=== PATIENT | female | born 1965 | race African-American/Black ===

== ENCOUNTER 2018-03-11 09:15 | Observation (INO) | payer MEDICAID ==
[2018-03-11] MEDS ORDERED: FENTANYL CITR 100 MCG/2 ML ONE ×2 (09:42→14:56)
[2018-03-11 09:56] LABS: Urine Blood NEGATIVE (NEG); Urine Glucose NEGATIVE (NEG); Urine Protein NEGATIVE (NEG); Urine Specific Gravity <1.005 (1.005-1.030)
[2018-03-11 10:54] LABS: Urine Bacteria <20 /HPF (<20); Urine Culture Reflex Order NOT NEEDED; Urine RBC <5 /HPF (NONE SEEN)
--- NOTE | 2018-03-11 11:18 | ER ---
Nurse's Notes [facility] Name: Stephanie Noel Age: 52 yrs Sex: Female : 1965 Arrival Date: 03/11/2018 Time: 09:18 Bed 19 Private MD: Zack Taylor Diagnosis: 2.7 cm deep abdominal wall abscess to LLQ Presentation: 03/11 09:31 Presenting complaint: Patient states: Pt reports "This spot on my left lower stomach jl7 has been coming and going for the past month." Ultrasound done, tech told pt to come to the ER. Transition of care: patient was not received from another setting of care. Onset of symptoms was February 08, 2018. Risk Assessment: Do you want to hurt yourself or someone else? Patient reports no desire to harm self or others. Initial Sepsis Screen: Does the patient meet any 2 criteria? No. Patient's initial sepsis screen is negative. Does the patient have a suspected source of infection? No. Patient's initial sepsis screen is negative. Care prior to arrival: None. 09:31 Method Of Arrival: Ambulatory 7 09:31 Acuity: MADONNA 3 jl7 Triage Assessment: 09:35 General: Appears in no apparent distress. uncomfortable, Behavior is calm, cooperative, jl7 appropriate for age. Pain: Complains of pain in left lower quadrant Pain does not radiate. Pain currently is 9 out of 10 on a pain scale. Quality of pain is described as burning, Pain began 1 month ago. EENT: No signs and/or symptoms were reported regarding the EENT system. Neuro: Level of Consciousness is awake, alert, obeys commands, Oriented to person, place, time, situation. Cardiovascular: Patient's skin is warm and dry. Respiratory: Airway is patent Respiratory effort is even, unlabored, Respiratory pattern is regular, symmetrical. GI: Abdomen is round non-distended, Bowel sounds present X 4 quads. : No signs and/or symptoms were reported regarding the genitourinary system. Derm: Skin is dry, Skin is normal, Skin temperature is warm Abscess located on left lower quadrant is quarter sized, has no drainage, is hot to touch. Musculoskeletal: No signs and/or symptoms reported regarding the musculoskeletal system. 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 LMP N/A - Post-menopause jl7 Historical: - Allergies: 09:35 Tetanus Vaccines and Toxoid; jl7 - Home Meds: 09:35 Antivert 25 mg Oral tab 1 tab every 6 hours [Active]; jl7 12:41 atenolol 50 mg Oral tab 1 tab 2 times per day [Active]; brinellix 10mg daily [Active]; jl7 Butalbital Compound 50-325-40 mg Oral tab 1 tab every 6 hours [Active]; Insulin: Lantus Sub-Q [Active]; Iron CR 325mg Oral daily [Active]; lisinopril 20 mg Oral tab 1 tab once daily [Active]; Lyrica 150mg Oral 1 cap 2 times per day [Active]; metformin 500 mg Oral Tb24 1 tab 2 times per day [Active]; Nexium 20 mg Oral cpDR 1 cap once daily [Active]; toradol 10mg every 6 hours [Active]; TriNessa (28) 0.18/0.215/0.25 mg-35 mcg (28) Oral tab 1 tab once daily [Active]; Xanax 1 mg Oral tab 1 tab 3 times per day [Active]; Zofran (as hydrochloride) 4 mg Oral tab 1 tabs every 4 hours [Active]; - PMHx: 09:35 AVM; Diabetes - NIDDM; Hyperlipidemia; Hypertension; jl7 - PSHx: 09:35 Tubal ligation; Cholecystectomy; jl7 - Immunization history:: Adult Immunizations up to date. - Social history:: Smoking status: Patient/guardian denies using tobacco. - Ebola Screening: : No symptoms or risks identified at this time. Screenin:40 Abuse screen: Denies threats or abuse. Denies injuries from another. Nutritional jl7 screening: No deficits noted. Tuberculosis screening: No symptoms or risk factors identified. Fall Risk IV access (20 points). Total Butler Fall Scale indicates No Risk (0-24 pts). Assessment: 09:38 General: see triage assessment. jl7 10:30 Reassessment: Patient and/or family updated on plan of care and expected duration. Pain jl7 level reassessed. Patient is alert, oriented x 3, equal unlabored respirations, skin warm/dry/pink. reports decreased pain at this time. 11:10 Reassessment: Dr. Fiore at bedside discussing plan of care. jl7 12:30 Reassessment: Pt c/o increased pain, provider notified, see MAR for orders. jl7 12:45 Reassessment: Dr. Fontenot at bedside. jl7 Vital Signs: 09:35 BP 124 / 89; Pulse 84; Resp 16 S; Temp 98.6(O); Pulse Ox 98% on R/A; Weight 100.24 kg jl7 (R); Height 5 ft. 0 in. (152.40 cm) (R); Pain 9/10; 13:00 BP 126 / 85; Pulse 84; Resp 16; Pulse Ox 99% ; Pain 6/10; jl7 09:35 Body Mass Index 43.16 (100.24 kg, 152.40 cm) jl7 ED Course: 09:18 Patient arrived in ED. mr 09:18 Zack Taylor MD is Private Physician. mr 09:19 Lena Casarez, LUCIANO is Primary Nurse. jl7 09:19 [facility]C [facility]. snw 09:19 Jose Alberto Fiore MD is Attending Physician. snw 09:33 Triage completed. jl7 09:35 Arm band placed on right wrist. jl7 09:40 Patient has correct armband on for positive identification. Placed in gown. Bed in low jl7 position. Call light in reach. Side rails up X 1. Pulse ox on. NIBP on. Warm blanket given. 09:57 Urine Culture Sent. ag 09:57 Urine Microscopic Only Sent. ag 09:57 Urine collected: clean catch specimen, clear. ag 11:14 Missed attempt(s): 22 gauge in left antecubital area. Bleeding controlled, band aid jl7 applied, catheter tip intact. 11:14 Initial lab(s) drawn, by tn, sent to lab. First set of blood cultures drawn by tn. jl7 11:16 Eric Sanchez MD is Hospitalizing Provider. kdr 11:30 Missed attempt(s): 22 gauge in right antecubital area. Bleeding controlled, band aid tw2 applied, catheter tip intact. Inserted saline lock: 22 gauge in right antecubital area, using aseptic technique. ,using aseptic technique. per LUCIANO Paredes. 11:30 Second set of blood cultures drawn by me. jl7 11:[address] via wheelchair. mw3 12:11 CT completed. Patient tolerated procedure well. Patient moved to CT. mw3 13:06 No provider procedures requiring assistance completed. Patient admitted, IV remains in jl7 place. intact, No redness/swelling at site. Administered Medications: 09:45 Drug: fentaNYL (PF) 50 mcg Route: IM; Site: left deltoid; jl7 10:30 Follow up: Response: No adverse reaction; Pain is decreased jl7 11:37 Drug: NS 0.9% 1000 ml Route: IV; Rate: 75 ml/hr; Site: right antecubital; jl7 12:37 Follow up: IV Status: Infusion continued upon admission jl7 11:37 Drug: Clindamycin 900 mg Route: IVPB; Infused Over: 30 mins; Site: right antecubital; jl7 12:25 Follow up: IV Status: Completed infusion jl7 12:30 Drug: fentaNYL (PF) 25 mcg Route: IVP; Site: right antecubital; jl7 13:00 Follow up: Response: No adverse reaction; Pain is decreased jl7 Outcome: 11:17 Decision to Hospitalize by Provider. kdr 13:06 Admitted to Med/surg accompanied by tech, family with patient, via wheelchair, room [facility] 211, with chart, Report called to LUCIANO Caraballo 13:06 Condition: stable 13:06 Discharge instructions given to patient, family, Instructed on the need for admit, Demonstrated understanding of instructions. 13:08 Patient left the ED. [facility] Signatures: Jose Alberto Fiore MD MD kdr Therrien, Shelly, MEDICATION COORDINATOR-C MEDICATION COORDINATOR-Csnw Katherine Orozco Martínez, Marlene Becerra RN RN 2 Lena Casarez RN RN jl7 Lakisha Maciel mw3 Corrections: (The following items were deleted from the chart) 12:11 12:11 X-ray completed. mw3 mw3
--- NOTE | 2018-03-11 11:18 | EDPHYS ---
Physician Documentation [facility] Name: Stephanie Noel Age: 52 yrs Sex: Female : 1965 Arrival Date: 03/11/2018 Time: 09:18 Bed 19 Private MD: Zack Taylor ED Physician Jose Alberto Fiore HPI: 03/11 11:05 This 52 yrs old Black Female presents to ER via Ambulatory with complaints of Abdominal snw Pain. 11:05 The patient presents with abdominal pain in the left lower quadrant. Onset: The snw symptoms/episode began/occurred 3 month(s) ago, and became persistent. The symptoms do not radiate. The symptoms are described as shooting, stabbing, steady. Severity of pain: At its worst the pain was severe. The patient has experienced similar episodes in the past, multiple times, but today's symptoms are worse. The patient has been recently seen by a physician: the patient's primary care provider, Dr. Taylor. 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:35 LMP N/A - Post-menopause jl7 Historical: - Allergies: 09:35 Tetanus Vaccines and Toxoid; jl7 - Home Meds: 09:35 Antivert 25 mg Oral tab 1 tab every 6 hours [Active]; jl7 12:41 atenolol 50 mg Oral tab 1 tab 2 times per day [Active]; brinellix 10mg daily [Active]; jl7 Butalbital Compound 50-325-40 mg Oral tab 1 tab every 6 hours [Active]; Insulin: Lantus Sub-Q [Active]; Iron CR 325mg Oral daily [Active]; lisinopril 20 mg Oral tab 1 tab once daily [Active]; Lyrica 150mg Oral 1 cap 2 times per day [Active]; metformin 500 mg Oral Tb24 1 tab 2 times per day [Active]; Nexium 20 mg Oral cpDR 1 cap once daily [Active]; toradol 10mg every 6 hours [Active]; TriNessa (28) 0.18/0.215/0.25 mg-35 mcg (28) Oral tab 1 tab once daily [Active]; Xanax 1 mg Oral tab 1 tab 3 times per day [Active]; Zofran (as hydrochloride) 4 mg Oral tab 1 tabs every 4 hours [Active]; - PMHx: 09:35 AVM; Diabetes - NIDDM; Hyperlipidemia; Hypertension; jl7 - PSHx: 09:35 Tubal ligation; Cholecystectomy; jl7 - Immunization history:: Adult Immunizations up to date. - Social history:: Smoking status: Patient/guardian denies using tobacco. - Ebola Screening: : No symptoms or risks identified at this time. ROS: 11:04 Constitutional: Negative for fever, chills, and weight loss, Eyes: Negative for injury, snw pain, redness, and discharge, ENT: Negative for injury, pain, and discharge, Neck: Negative for injury, pain, and swelling, Cardiovascular: Negative for chest pain, palpitations, and edema, Respiratory: Negative for shortness of breath, cough, wheezing, and pleuritic chest pain, Back: Negative for injury and pain, : Negative for injury, bleeding, discharge, and swelling, MS/Extremity: Negative for injury and deformity, Skin: Negative for injury, rash, and discoloration, Neuro: Negative for headache, weakness, numbness, tingling, and seizure. 11:04 Abdomen/GI: Positive for abdominal pain, of the left lower quadrant. Exam: 11:03 Constitutional: This is a well developed, well nourished patient who is awake, alert, snw and in no acute distress. Head/Face: Normocephalic, atraumatic. Eyes: Pupils equal round and reactive to light, extra-ocular motions intact. Lids and lashes normal. Conjunctiva and sclera are non-icteric and not injected. Cornea within normal limits. Periorbital areas with no swelling, redness, or edema. ENT: Nares patent. No nasal discharge, no septal abnormalities noted. Tympanic membranes are normal and external auditory canals are clear. Oropharynx with no redness, swelling, or masses, exudates, or evidence of obstruction, uvula midline. Mucous membranes moist. Neck: Trachea midline, no thyromegaly or masses palpated, and no cervical lymphadenopathy. Supple, full range of motion without nuchal rigidity, or vertebral point tenderness. No Meningismus. Chest/axilla: Normal chest wall appearance and motion. Nontender with no deformity. No lesions are appreciated. Cardiovascular: Regular rate and rhythm with a normal S1 and S2. No gallops, murmurs, or rubs. Normal PMI, no JVD. No pulse deficits. Respiratory: Lungs have equal breath sounds bilaterally, clear to auscultation and percussion. No rales, rhonchi or wheezes noted. No increased work of breathing, no retractions or nasal flaring. Back: No spinal tenderness. No costovertebral tenderness. Full range of motion. Skin: Warm, dry with normal turgor. Normal color with no rashes, no lesions, and no evidence of cellulitis. MS/ Extremity: Pulses equal, no cyanosis. Neurovascular intact. Full, normal range of motion. Neuro: Awake and alert, GCS 15, oriented to person, place, time, and situation. Cranial nerves II-XII grossly intact. Motor strength 5/5 in all extremities. Sensory grossly intact. Cerebellar exam normal. Normal gait. 11:03 Abdomen/GI: Inspection: abdomen appears normal, linear area reminiscent of a keloid to left lower abd/pelvis that is exquisitely tender to touch , Bowel sounds: normal, Palpation: severe abdominal tenderness, in the left lower quadrant. Vital Signs: 09:35 BP 124 / 89; Pulse 84; Resp 16 S; Temp 98.6(O); Pulse Ox 98% on R/A; Weight 100.24 kg jl7 (R); Height 5 ft. 0 in. (152.40 cm) (R); Pain 9/10; 13:00 BP 126 / 85; Pulse 84; Resp 16; Pulse Ox 99% ; Pain 6/10; jl7 09:35 Body Mass Index 43.16 (100.24 kg, 152.40 cm) jl7 MDM: 09:20 Patient medically screened. snw 11:13 Data reviewed: vital signs, nurses notes. Data interpreted: Pulse oximetry: on room air snw is 98 %. Interpretation: normal. Counseling: I had a detailed discussion with the patient and/or guardian regarding: the historical points, exam findings, and any diagnostic results supporting the discharge/admit diagnosis, the presence of at least one elevated blood pressure reading (>120/80) during this emergency department visit, lab results, radiology results. Physician consultation: Eric Sanchez MD was called at 11:14, was contacted at 11:14, and will see patient Dr. Fiore notified of pt's need for surgical eval. He will consult with Dr. Sanchez. 11:14 Data reviewed: vital signs, nurses notes, lab test result(s), radiologic studies. kdr Counseling: I had a detailed discussion with the patient and/or guardian regarding: the historical points, exam findings, and any diagnostic results supporting the discharge/admit diagnosis, lab results, radiology results, the need for further work-up and treatment in the hospital. Physician consultation: Eric Sanchez MD was called at 11:10, was contacted at 11:10, regarding admission, patient's condition, need to evaluate the patient as soon as possible, and will see patient in inpatient room, later today. Admission orders: after a detailed discussion of the patient's condition and case, the admit orders are written by me. 03/11 09:20 Order name: Urine Culture [facility] 03/11 09:20 Order name: Urine Microscopic Only; Complete Time: 10:55 [facility] 03/11 09:46 Order name: Urine Dipstick--Ancillary (enter results); Complete Time: 10:55 bd 03/11 10:55 Order name: CBC with Diff; Complete Time: 11:42 w 03/11 10:55 Order name: Blood Culture* [facility] 03/11 10:55 Order name: Chem 7; Complete Time: 11:51 w 03/11 10:57 Order name: CT Abd/Pelvis - W/Contrast [facility] 03/11 11:24 Order name: Basic Metabolic Panel MS 03/11 11:24 Order name: Basic Metabolic Panel EDMS 03/11 11:24 Order name: CBC with Automated Diff [facility] 03/11 11:24 Order name: CBC with Automated Diff MS 03/11 12:26 Order name: CT; Complete Time: 12:35 EDMS 03/11 09:20 Order name: Urine Dipstick-Ancillary (obtain specimen); Complete Time: 09:45 w 03/11 11:14 Order name: NPO; Complete Time: 11:36 kdr 03/11 11:24 Order name: NPO EDMS Administered Medications: 09:45 Drug: fentaNYL (PF) 50 mcg Route: IM; Site: left deltoid; jl7 10:30 Follow up: Response: No adverse reaction; Pain is decreased jl7 11:37 Drug: NS 0.9% 1000 ml Route: IV; Rate: 75 ml/hr; Site: right antecubital; jl7 12:37 Follow up: IV Status: Infusion continued upon admission jl7 11:37 Drug: Clindamycin 900 mg Route: IVPB; Infused Over: 30 mins; Site: right antecubital; jl7 12:25 Follow up: IV Status: Completed infusion jl7 12:30 Drug: fentaNYL (PF) 25 mcg Route: IVP; Site: right antecubital; jl7 13:00 Follow up: Response: No adverse reaction; Pain is decreased jl7 Disposition: 11:14 Co-signature as Attending Physician, Jose Alberto Fiore MD. kdr Disposition: 03/11/18 11:17 Hospitalization ordered by Eric Sanchez for Observation. Preliminary diagnosis is 2.7 cm deep abdominal wall abscess to LLQ. - Bed requested for Telemetry/MedSurg (observation). - Status is Observation. jl7 - Condition is Fair. - Problem is an ongoing problem. - Symptoms have improved. UTI on Admission? No Signatures: Dispatcher [employer] EDMS Tracey Escalante Kevin, MD MD [facility] Vikki Campbell, GROUP CONTRACT ANALYST-C GROUP CONTRACT ANALYST-Lena Diaz RN RN jl7 Corrections: (The following items were deleted from the chart) 12:33 11:17 Hospitalization Ordered by Eric Sanchez MD for Observation. Preliminary bd diagnosis is 2.7 cm deep abdominal wall abscess to LLQ. Bed requested for Telemetry/MedSurg (observation). Status is Observation. Condition is Fair. Problem is an ongoing problem. Symptoms have improved. UTI on Admission? No. kdr 13:08 12:33 03/11/2018 11:17 Hospitalization Ordered by Eric Sanchez MD for Observation. jl7 Preliminary diagnosis is 2.7 cm deep abdominal wall abscess to LLQ. Bed requested for Telemetry/MedSurg (observation). Status is Observation. Condition is Fair. Problem is an ongoing problem. Symptoms have improved. UTI on Admission? No. bd
[2018-03-11] MEDS ORDERED: GLUCAGON 1 MG/VIAL IM PRN (11:19)
[2018-03-11] MEDS ORDERED: ONDANSETRON 4 MG/2 ML VIAL IV PRN (11:19)
[2018-03-11] MEDS ORDERED: MORPHINE 4 MG/ML SYR IV PRN ×2 (11:19→15:59)
[2018-03-11] MEDS ORDERED: ACETAMINOPHEN 500 MG TAB PO PRN (11:19)
[2018-03-11] MEDS ORDERED: D50W 25 GM/50 ML SYRINGE IV PRN (11:19)
[2018-03-11] MEDS ORDERED: CLINDAMYCIN 900MG/D5W 900 MG/50 ML BAG IV ONE (11:28)
[2018-03-11] MEDS ORDERED: NA CHLORIDE 0.9% 1,000 ML ONE ×2 (11:28→14:50)
[2018-03-11] MEDS: INSULIN -REGULAR HUMAN 50 UNIT/0.5 ML ML SQ SCH ×2 (11:30→16:30)
[2018-03-11 11:34] LABS: Absolute Lymphocytes (CBC) 1.9 K/uL (0.7-4.9); Absolute Monocytes 0.3 K/uL (0.1-1.3); Absolute Neutrophil 4.3 K/uL (1.8-8.0); Basophils % 1.2 % (0-1.3); Eosinophils % 2.3 % (0-4.4); Hematocrit 35.3 % (36.0-45.0); MCH 23.9 pg (27.0-35.0); MCV 73.7 fL (80-100); Monocytes % 4.7 % (3.3-12.3)
[2018-03-11 11:49] LABS: BUN Blood Urea Nitrogen 17 mg/dL (7-18); Bicarbonate 30 mmol/L (21-32); Glucose Level 184 mg/dL (74-106); Potassium 3.9 mmol/L (3.5-5.1); Sodium Level 134 mmol/L (136-145)
[2018-03-11] MEDS: CLINDAMYCIN PHOSPHATE 300 MG in NA CHLORIDE 0.9% 50 ML IV SCH (12:00)
[2018-03-11] MEDS ORDERED: D5 0.45 NS 1,000 ML IV SCH (12:00)
--- NOTE | 2018-03-11 12:25 | RAD REPORT ---
EXAM DESCRIPTION: CT - Abdomen Pelvis W Contrast - 03/11/2018 12:08 pm CLINICAL HISTORY: Left lower abdomen pain COMPARISON: Pelvic ultrasound imaging March 11 TECHNIQUE: Biphasic, helical CT imaging of the abdomen and pelvis was performed following 100 ml non -ionic IV contrast. Oral contrast was given. All CT scans are performed using dose optimization technique as appropriate and may include automated exposure control or mA/KV adjustment according to patient size. FINDINGS: No suspicious findings in the lung bases. The liver, spleen, and pancreas show no suspicious focal findings. Liver attenuation shows mild diffu se fatty infiltration. Cholecystectomy clips are present with no biliary tree dilatation. Symmetric renal function is seen with no hydronephrosis or suspicious renal mass. No pyelonephritis o r acute renal parenchymal process. Uterus is heterogeneous in enhancement. No definitive fibroid seen and no discrete mass confirmed on sonography. Both ovaries are identifiable on CT imaging and show n o suspicious finding. No gastric dilatation or gastric wall thickening. [place]illas of the duodenum are prominent. In the absence of upper abdominal symptoms, this is not likely duodenitis. Small bowel loops are not dilated. No ac [place] colon process. No free air, free fluid or inflammatory stranding within the peritoneal or retrop eritoneal spaces. No peritoneal or retroperitoneal bulky lymphadenopathy or mass. No hernia identifi ed. The urinary bladder is without significant finding. No adrenal abnormality. No suspicious bony findings. In the left lower quadrant along a fold of lower abdominal pannus there is 2.5 centimeter area of str anding at the skin surface. This is believed to be the correlate to the small hypoechoic focus seen a t sonography. An area of cellulitis in subcutaneous abscess is most likely. This is distant from the peritoneal cavity. Patient has several inguinal lymph nodes on the left likely reactive. IMPRESSION: Along the left lower quadrant pannus there is a 2.5 centimeter area of inflammatory zuniga ge believed to be the correlate to the sonogram finding. Cellulitis in small subcutaneous abscess is most likely. CT abdomen and pelvis imaging, as detailed above is without significant or suspicious finding. The duodenum wall thickening could be duodenitis but the patient apparently has no upper abdominal sy mptoms.
[2018-03-11 13:38] VITALS: BMI 44.1
[2018-03-11] MEDS ORDERED: PROPOFOL 200 MG/20 ML VIAL IV ONE (14:56)
[2018-03-11 15:16] LABS: Urine Appearance CLEAR; Urine Bilirubin NEGATIVE (NEG); Urine Blood NEGATIVE (NEG); Urine Color YELLOW; Urine Glucose NEGATIVE (NEG); Urine Protein NEGATIVE (NEG); Urine Specific Gravity >=1.030 (1.005-1.030); Urine Urobilinogen 0.2 mg/dL (0.2-1.0); Urine pH 5.5 (5.0-7.0)
--- NOTE | 2018-03-11 15:25 | P.HP ---
Date of Service: 03/11/18 PC: This 52-year-old female presents to the emergency room with severe lower abdominal pain for diagnosis and treatment. HPC: Patient has been experiencing pain and discomfort of this area for the last few weeks. Today start to feel a bulge that was point tender. Says she feels like there is fluid underneath it. PMH: Previous some RSA abscess of the right chest wall, hypertension, diabetes PSHx: Previous incision drainage of abscess sees SOC: Allergic to tetanus SYS REVIEW: No cough, wheeze, shortness of breath. No chest pain or palpitations. No urinary complaints. O/E awake alert stable HEENT: Within normal limits Chest: Air entry equal bilaterally ABD: Abdomen is soft, however the lower end of her panniculus on the left side there is a area that is bulge into the outside. It measured approximately 2 x 3 cm in size. Consistent a deeper abscess LOCO: . Intact DATA: Elevated white cell count IMPRESSION: Abscess of the anterior abdominal wall PLAN: I will take her to the operating room for incision, drainage, sharp debridement of this abscess of her anterior abdominal wall. The risks of this procedure have been discussed. The possibility of bleeding, infection, recurrence have been outlined. She understands and wants us to proceed.
[2018-03-11] MEDS ORDERED: KETOROLAC 30 MG/ML INJ ONE (15:31)
[2018-03-11] MEDS ORDERED: ONDANSETRON HCL 40 MG/20 ML VIAL ONE (15:32)
[2018-03-11] MEDS ORDERED: DEXAMETHASONE 10 MG/ML VIAL ONE (15:32)
[2018-03-11 15:48] LABS: Urine Microscopic Reflex NO UMIC
--- NOTE | 2018-03-11 15:57 | P.OP ---
Preoperative diagnosis: Abscess of the left lower anterior abdominal wall Postoperative diagnosis: The same Primary procedure: Incision, drainage, sharp debridement of abdominal wall abscess Anesthesia: General Estimated blood loss: Less than 10 cc Specimen: 9 sent Operative Technique: The patient brought the operating room and placed supine on the table. After the induction of adequate general anesthesia, the area of the abdomen was prepped with a DuraPrep solution, she was draped in usual aseptic manner. After injection this area of maximal fluctuance with 0.25% Marcaine, a skin incision was made with a cutting 11 blade. This was brought down through the skin and subcutaneous tissue. We encounter no large amount (20 cc) of purulent material. This was drained from the surrounding tissue. The loculations of this abscess cavity were broken down. Necrotic tissue was sharply debrided with the cutting 11 blade. 9 of this was sent for histopathology as was consistent with necrotic fat. At this point and 2. Nylon was brought into the wound in out more superiorly. The suture was cut and tied on itself to keep the wound open and draining during the postoperative period. At the end of the procedure. A sterile dressing was applied. She was stable when sent to the recovery room. Needle sponge instrument count were correct. Complications: None Drain(s): Other (#2 nylon suture) Transferred to: Recovery Room Condition: Good
[2018-03-11] MEDS ORDERED: MEPERIDINE HCL 25 MG/0.5 ML ONE (16:04)
[2018-03-11 20:20] VITALS: BP 119/70; TEMP 97; O2SAT 97
[2018-03-11] MEDS ORDERED: SMZ./TMP. 800/160 MG TABLET PO SCH (21:00)
== END 2018-03-11 20:15 | disposition home or self-care (01) ==
LOC: ER 09:15 → ERHOLD 11:17 → 2ND 12:45 → 4TH 16:46
PROVIDERS: ADMIT Surgery; ATTEND Surgery
PROC: 0J980ZZ Drainage of Abdomen Subcutaneous Tissue and Fascia, Open Approach (ICD-10-PCS; principal; 2018-03-11 14:45)
DX: L02.211 Cutaneous abscess of abdominal wall (principal); I10 Essential (primary) hypertension; E11.9 Type 2 diabetes mellitus without complications; Z88.7 Allergy status to serum and vaccine
CPT/HCPCS: 36415; 74177; 76830; 76856; 80048; 81003; 81015; 82962; 85025; 87040; 87086; 87088; 96365; 96372; 96375; 99285; G0378; J1100; J2175; J2405; J3010; J7030; Q9967; S0077

== ENCOUNTER 2018-03-12 03:40 | Emergency (ER) | payer MEDICAID ==
[2018-03-12] MEDS ORDERED: NA CHLORIDE 0.9% 1,000 ML ONE (04:10)
[2018-03-12 04:25] LABS: Absolute Lymphocytes (CBC) 1.3 K/uL (0.7-4.9); Absolute Monocytes 0.2 K/uL (0.1-1.3); Absolute Neutrophil 11.1 K/uL (1.8-8.0); Basophils % 0.4 % (0-1.3); Eosinophils % 0.1 % (0-4.4); Lymphocytes % 10.1 % (15.3-44.8); MCH 23.8 pg (27.0-35.0); MCV 74.6 fL (80-100); MPV 9.4 fL (7.6-11.3); Monocytes % 1.4 % (3.3-12.3); RBC Red Blood Cell Count 4.56 M/uL (3.86-4.86)
[2018-03-12 04:46] LABS: ALT/SGPT 21 U/L (12-78); AST/SGOT 17 U/L (15-37); Albumin 3.4 g/dL (3.4-5.0); Alkaline Phosphatase 61 U/L (45-117); BUN Blood Urea Nitrogen 26 mg/dL (7-18); Bicarbonate 22 mmol/L (21-32); Bilirubin Direct < 0.1 mg/dL (0-0.2); Glucose Level 354 mg/dL (74-106); Lipase 221 U/L (73-393); Protein, Total 8.3 g/dL (6.4-8.2); Sodium Level 131 mmol/L (136-145)
[2018-03-12 04:54] LABS: Bilirubin Total < 0.1 mg/dL (0.2-1.0)
[2018-03-12 05:03] LABS: Arterial Blood Carboxyhemoglob 0.9 % (0-1.5); Blood Gas Oxyhemoglobin 82.1 % (94-97); Blood O2 Saturation 84.1 % (92-98.5)
[2018-03-12 05:43] LABS: Blood Morphology Comment NOT SEEN (NOT SEEN); Platelet Estimate ADEQ
[2018-03-12 07:04] LABS: Urine Blood NEGATIVE (NEG); Urine Glucose 2+ (NEG); Urine Protein NEGATIVE (NEG)
[2018-03-12] MEDS ORDERED: DIPHENHYDRAMINE 50 MG/ML VIAL ONE (07:25)
[2018-03-12] MEDS ORDERED: METOCLOPRAMIDE 10 MG/2mL INJ ONE (07:25)
[2018-03-12] MEDS ORDERED: LORazepam 2 MG/ML VIAL ONE (07:52)
[2018-03-12] MEDS ORDERED: MORPHINE 4 MG/ML SYR ONE (07:53)
--- NOTE | 2018-03-12 07:55 | EDPHYS ---
Physician Documentation [facility] Name: Stephanie Noel Age: 52 yrs Sex: Female : 1965 Arrival Date: 03/12/2018 Time: 03:42 Bed 6 Private MD: Zack Taylor ED Physician Kamari Valle HPI: 03/12 07:42 This 52 yrs old Black Female presents to ER via Ambulatory with complaints of High ps1 Blood Sugar, Headache. 07:42 patient had an I\T\D of an abscess yesterday by Dr. Sanchez. Was released and started ps1 having a headache and noticed that her blood sugar was elevated > 400. Pain is rated as moderate. Left temporal in location. She states that she addtionally had anxiety and she feels like she may be having a panic attack. She states that she is having pain at her surgical site. No fever. Did not take pain medication prescription and has been taking motrin. . 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 tw2 Historical: - Allergies: 04:03 Tetanus Vaccines and Toxoid; fc - Home Meds: 04:03 Xanax 1 mg Oral tab 1 tab 3 times per day [Active]; atenolol 50 mg Oral tab 1 tab 2 fc times per day [Active]; Tresiba FlexTouch U-100 100 unit/mL (3 mL) subcutaneous inpn 68 unit daily [Active]; lisinopril 20 mg Oral tab 1 tab once daily [Active]; metformin 1,000 mg oral tab 1 tab 2 times per day [Active]; Nexium 40 mg oral cpDR 1 cap once daily [Active]; Lyrica 50 mg Oral 1 cap daily [Active]; trazodone 50 mg Oral tab 1 tab nightly [Active]; - PMHx: 04:03 AVM; Hyperlipidemia; Hypertension; Diabetes - IDDM; Anxiety; Panic Attacks; GERD; fc - PSHx: 04:03 abscess drainage; Cholecystectomy; rotator cuff repair; fc - Immunization history:: Last tetanus immunization: allergic. - Social history:: Smoking status: Patient/guardian denies using tobacco. - Ebola Screening: : Patient negative for fever greater than or equal to 101.5 degrees Fahrenheit, and additional compatible Ebola Virus Disease symptoms Patient denies exposure to infectious person Patient denies travel to an Ebola-affected area in the 21 days before illness onset. ROS: 07:42 Constitutional: Negative for fever, chills, and weight loss, Eyes: Negative for injury, ps1 pain, redness, and discharge, Cardiovascular: Negative for chest pain, palpitations, and edema, Respiratory: Negative for shortness of breath, cough, wheezing, and pleuritic chest pain, Abdomen/GI: Negative for abdominal pain, nausea, vomiting, diarrhea, and constipation, Back: Negative for injury and pain, MS/Extremity: Negative for injury and deformity. 07:42 Skin: Positive for post surgical pain. . 07:42 Neuro: Positive for headache. Exam: 07:42 Constitutional: This is a well developed, well nourished patient who is awake, alert, ps1 and in no acute distress. Head/Face: Normocephalic, atraumatic. Eyes: Pupils equal round and reactive to light, extra-ocular motions intact. Lids and lashes normal. Conjunctiva and sclera are non-icteric and not injected. Chest/axilla: Normal chest wall appearance and motion. Nontender with no deformity. No lesions are appreciated. Respiratory: Lungs have equal breath sounds bilaterally, clear to auscultation and percussion. No rales, rhonchi or wheezes noted. No increased work of breathing, no retractions or nasal flaring. Skin: Warm, dry with normal turgor. Normal color with no rashes, no lesions, and no evidence of cellulitis. MS/ Extremity: Pulses equal, no cyanosis. Neurovascular intact. Full, normal range of motion. Neuro: Awake and alert, GCS 15, oriented to person, place, time, and situation. Cranial nerves II-XII grossly intact. Sensory grossly intact. 07:42 Cardiovascular: Rate: tachycardic, Rhythm: regular, Edema: is not appreciated. 07:42 Skin: abdominal wound is clean, dry, intact, and covered. . Vital Signs: 03:45 BP 175 / 80; Pulse 123; Resp 24; Temp 98.7(O); Pulse Ox 98% on R/A; Weight 100.24 kg fc (R); Height 5 ft. 0 in. (152.40 cm) (R); Pain 9/10; 05:08 BP 154 / 69; Pulse 112; Resp 22; Temp 98.7; Pulse Ox 99% on R/A; ak1 06:09 BP 148 / 74; Pulse 112; Resp 20 S; Pulse Ox 99% on R/A; ea 07:25 BP 155 / 71; Pulse 109; Resp 13; Pulse Ox 99% on R/A; tw2 08:06 BP 143 / 71; Pulse 105; Resp 17; Pulse Ox 99% on R/A; tw2 03:45 Body Mass Index 43.16 (100.24 kg, 152.40 cm) fc MDM: 04:02 Patient medically screened. ps1 07:56 Data reviewed: vital signs, nurses notes, lab test result(s), EKG, radiologic studies. ps1 03/12 04:01 Order name: Basic Metabolic Panel ps1 03/12 04:01 Order name: Blood Culture Adult (2) ps1 03/12 04:01 Order name: CBC with Diff; Complete Time: 05:55 ps1 03/12 04:01 Order name: Lactate; Complete Time: 05:07 ps1 03/12 04:01 Order name: LFT's; Complete Time: 05:07 ps1 03/12 04:01 Order name: Lipase; Complete Time: 05:07 ps1 03/12 04:01 Order name: Troponin (emerg Dept Use Only); Complete Time: 05:07 ps1 03/12 04:01 Order name: ABG; Complete Time: 05:07 ps1 03/12 04:01 Order name: Basic Metabolic Panel; Complete Time: 05:07 EDMS 03/12 04:01 Order name: Blood Culture EDMS 03/12 04:53 Order name: Manual Differential; Complete Time: 05:55 EDMS 03/12 05:10 Order name: Urine Dipstick--Ancillary (enter results) oe 03/12 05:11 Order name: Urine Dipstick-Ancillary; Complete Time: 07:11 EDMS 03/12 06:00 Order name: Lactate; Complete Time: 07:11 ak1 03/12 04:01 Order name: Chest Single View XRAY ps1 03/12 04:01 Order name: Accucheck; Complete Time: 04:03 ps1 03/12 04:01 Order name: Cardiac monitoring; Complete Time: 04:10 ps1 03/12 04:01 Order name: EKG - Nurse/Tech; Complete Time: 04:03 ps1 03/12 04:01 Order name: IV Saline Lock - Large Bore; Complete Time: 04:03 ps1 03/12 04:01 Order name: Labs collected and sent; Complete Time: 04:03 ps1 03/12 04:01 Order name: O2 Per Protocol; Complete Time: 04:03 ps1 03/12 04:01 Order name: O2 Sat Monitoring; Complete Time: 04:03 ps1 03/12 05:14 Order name: Abdomen EDMS 03/12 04:01 Order name: Urine Dipstick-Ancillary (obtain specimen); Complete Time: 05:09 ps1 EC:00 Rate is 111 beats/min. Rhythm is regular. QRS [place] is Normal. ME interval is normal. ps1 QRS interval is normal. QT interval is normal. No Q waves. T waves are Normal. No ST changes noted. Clinical impression: Sinus tachycardia. Interpreted by me. Administered Medications: 04:10 Drug: NS 0.9% (30 ml/kg) 30 ml/kg Route: IV; Rate: bolus; Site: left antecubital; ak1 08:05 Follow up: Response: No adverse reaction; IV Status: Order to discontinue infusion tw2 07:28 Drug: Reglan 10 mg Route: IVP; Site: left antecubital; tw2 07:57 Follow up: Response: No adverse reaction tw2 07:30 Drug: Benadryl 50 mg Route: IVP; Site: left antecubital; tw2 07:58 Follow up: Response: No adverse reaction tw2 07:55 Drug: Ativan 1 mg Route: IVP; Site: left antecubital; tw2 08:05 Follow up: Response: No adverse reaction tw2 07:57 Drug: morphine 4 mg Route: IVP; Site: left antecubital; tw2 08:05 Follow up: Response: No adverse reaction; Pain is decreased tw2 Point of Care Testing: Blood Glucose: 03:45 Blood Glucose: 319 mg/dL; fc 07:34 Blood Glucose: 281 mg/dL; tw2 Ranges: Critical Glucose Levels:Adult <50 mg/dl or >400 mg/dl <40 mg/dl or >180 mg/dl Disposition: 03/12/18 07:54 Discharged to Home. Impression: abdominal pain,post surgical, migraine, anxiety reaction. - Condition is Stable. - Discharge Instructions: Abdominal Pain, Adult, Migraine Headache. - Medication Reconciliation Form, Thank You Letter, Antibiotic Education, Prescription Opioid Use form. - Follow up: Zack Taylor MD; When: As needed; Reason: Recheck today's complaints, Continuance of care, Re-evaluation by your physician. Follow up: Private Physician; When: As needed; Reason: Recheck today's complaints, Continuance of care, Re-evaluation by your physician. Follow up: Emergency Department; When: As needed; Reason: Fever > 102 F, Trouble breathing, Worsening of condition. - Problem is an acute exacerbation. - Symptoms have improved. Signatures: Dispatcher [employer] [facility] Felicia Ca, RN RN Kiara Chaudhary, RN RN ak1 Danielle Lees, RN RN Marlene Sargent, RN RN tw2 Duarte Duarte MD MD wa Singer, Phillip, MD MD ps1 Corrections: (The following items were deleted from the chart) 05:02 04:02 Abdomen W/ Con+CT.RAD.BRZ ordered. [facility] 05:14 05:02 Abdomen ordered. [facility] 08:08 07:54 03/12/2018 07:54 Discharged to Home. Impression: abdominal pain,post surgical; tw2 migraine; anxiety reaction. Condition is Stable. Forms are Medication Reconciliation Form, Thank You Letter, Antibiotic Education, Prescription Opioid Use. Follow up: Zack Taylor; When: As needed; Reason: Recheck today's complaints, Continuance of care, Re-evaluation by your physician. Follow up: Private Physician; When: As needed; Reason: Recheck today's complaints, Continuance of care, Re-evaluation by your physician. Follow up: Emergency Department; When: As needed; Reason: Fever > 102 F, Trouble breathing, Worsening of condition. Problem is an acute exacerbation. Symptoms have improved. ps1
--- NOTE | 2018-03-12 07:55 | ER ---
Nurse's Notes [facility] Name: Stephanie Noel Age: 52 yrs Sex: Female : 1965 Arrival Date: 03/12/2018 Time: 03:42 Bed 6 Private MD: Zack Taylor Diagnosis: abdominal pain,post surgical;migraine;anxiety reaction Presentation: 03/12 03:45 Presenting complaint: Patient states: that she was just discharged at 1999 last night fc post left lower abd abscess drainage by Dr Sanchez. She is now having high blood sugar of 412, bad headache and her heart is racing. Transition of care: patient was not received from another setting of care. Onset of symptoms was March 12, 2018. Risk Assessment: Do you want to hurt yourself or someone else? Patient reports no desire to harm self or others. Initial Sepsis Screen: Does the patient meet any 2 criteria? HR > 90 bpm. Yes Does the patient have a suspected source of infection? No. Patient's initial sepsis screen is negative. Care prior to arrival: Glucose check: 412. 03:45 Method Of Arrival: Ambulatory fc 03:45 Acuity: MAD[place] 3 fc Triage Assessment: 04:24 Headache History: Denies prior headaches. General: Appears in no apparent distress. ak1 Behavior is calm, cooperative. Pain: Pain began 1 day ago. Pain: Pain Also complains of sleeplessness. 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 tw2 Historical: - Allergies: 04:03 Tetanus Vaccines and Toxoid; fc - Home Meds: 04:03 Xanax 1 mg Oral tab 1 tab 3 times per day [Active]; atenolol 50 mg Oral tab 1 tab 2 fc times per day [Active]; Tresiba FlexTouch U-100 100 unit/mL (3 mL) subcutaneous inpn 68 unit daily [Active]; lisinopril 20 mg Oral tab 1 tab once daily [Active]; metformin 1,000 mg oral tab 1 tab 2 times per day [Active]; Nexium 40 mg oral cpDR 1 cap once daily [Active]; Lyrica 50 mg Oral 1 cap daily [Active]; trazodone 50 mg Oral tab 1 tab nightly [Active]; - PMHx: 04:03 AVM; Hyperlipidemia; Hypertension; Diabetes - IDDM; Anxiety; Panic Attacks; GERD; fc - PSHx: 04:03 abscess drainage; Cholecystectomy; rotator cuff repair; fc - Immunization history:: Last tetanus immunization: allergic. - Social history:: Smoking status: Patient/guardian denies using tobacco. - Ebola Screening: : Patient negative for fever greater than or equal to 101.5 degrees Fahrenheit, and additional compatible Ebola Virus Disease symptoms Patient denies exposure to infectious person Patient denies travel to an Ebola-affected area in the 21 days before illness onset. Screenin:58 Abuse screen: Denies threats or abuse. Nutritional screening: No deficits noted. fc Tuberculosis screening: No symptoms or risk factors identified. Fall Risk None identified. Assessment: 04:23 General: Appears uncomfortable, Behavior is calm, cooperative. Pain: Complains of pain ak1 in headache. Neuro: Level of Consciousness is awake, alert, obeys commands, Oriented to person, place, time, situation, [place] are equal bilaterally Moves all extremities. Gait is steady, Speech is normal, Facial symmetry appears normal, Pupils are PERRLA. Cardiovascular: No deficits noted. Respiratory: No deficits noted. GI: No signs and/or symptoms were reported involving the gastrointestinal system. : No signs and/or symptoms were reported regarding the genitourinary system. EENT: No signs and/or symptoms were reported regarding the EENT system. Derm: No signs and/or symptoms reported regarding the dermatologic system. Musculoskeletal: No signs and/or symptoms reported regarding the musculoskeletal system. 04:38 Reassessment: Patient and/or family updated on plan of care and expected duration. Pain ea level reassessed. Pt taken to CT. 04:58 Reassessment: Patient appears in no apparent distress at this time. pt ambulating to ak1 restroom with steady gait. 06:11 Reassessment: Patient and/or family updated on plan of care and expected duration. Pain ea level reassessed. Patient is alert, oriented x 3, equal unlabored respirations, skin warm/dry/pink. 07:25 Reassessment: Patient appears in no apparent distress at this time. Patient and/or tw2 family updated on plan of care and expected duration. Pain level reassessed. Patient is alert, oriented x 3, equal unlabored respirations, skin warm/dry/pink. Dr. Valle at bedside at this time. 08:07 Reassessment: Patient appears in no apparent distress at this time. Patient and/or tw2 family updated on plan of care and expected duration. Pain level reassessed. Patient is alert, oriented x 3, equal unlabored respirations, skin warm/dry/pink. Patient states feeling better. Patient states symptoms have improved. Vital Signs: 03:45 BP 175 / 80; Pulse 123; Resp 24; Temp 98.7(O); Pulse Ox 98% on R/A; Weight 100.24 kg fc (R); Height 5 ft. 0 in. (152.40 cm) (R); Pain 9/10; 05:08 BP 154 / 69; Pulse 112; Resp 22; Temp 98.7; Pulse Ox 99% on R/A; ak1 06:09 BP 148 / 74; Pulse 112; Resp 20 S; Pulse Ox 99% on R/A; ea 07:25 BP 155 / 71; Pulse 109; Resp 13; Pulse Ox 99% on R/A; tw2 08:06 BP 143 / 71; Pulse 105; Resp 17; Pulse Ox 99% on R/A; tw2 03:45 Body Mass Index 43.16 (100.24 kg, 152.40 cm) ED Course: 03:42 Patient arrived in ED. es 03:44 Zack Taylor MD is Private Physician. es 03:45 Arm band placed on Patient placed in an exam room, on a stretcher. fc 03:49 Kamari Valle MD is Attending Physician. ps1 03:50 Kiara Chaudhary RN is Primary Nurse. ak1 03:57 Triage completed. fc 03:58 Patient has correct armband on for positive identification. Placed in gown. Bed in low fc position. Call light in reach. Side rails up X 1. nurse monitoring on. Pulse ox on. NIBP on. 04:02 Inserted saline lock: 20 gauge in left antecubital area, using aseptic technique. Blood ak1 collected. 04:19 X-ray completed. Portable x-ray completed in exam room. Patient tolerated procedure kw well. 04:20 Chest Single View XRAY In Process Unspecified. EDMS 04:24 No provider procedures requiring assistance completed. ak1 05:15 Abdomen In Process Unspecified. EDMS 07:17 Primary Nurse role handed off by Kiara Chaudhary, RN tw2 07:17 Sargent, Marlene, RN is Primary Nurse. tw2 07:24 Awaiting: morphing from pharmacy at this time, none available in pxysis. tw2 07:50 Vikki Campbell FNP-C [facility] snw 07:54 Zack Taylor MD is Referral Physician. ps1 08:07 IV discontinued, intact, bleeding controlled, No redness/swelling at site. Pressure tw2 dressing applied. Administered Medications: 04:10 Drug: NS 0.9% (30 ml/kg) 30 ml/kg Route: IV; Rate: bolus; Site: left antecubital; ak1 08:05 Follow up: Response: No adverse reaction; IV Status: Order to discontinue infusion tw2 07:28 Drug: Reglan 10 mg Route: IVP; Site: left antecubital; tw2 07:57 Follow up: Response: No adverse reaction tw2 07:30 Drug: Benadryl 50 mg Route: IVP; Site: left antecubital; tw2 07:58 Follow up: Response: No adverse reaction tw2 07:55 Drug: Ativan 1 mg Route: IVP; Site: left antecubital; tw2 08:05 Follow up: Response: No adverse reaction tw2 07:57 Drug: morphine 4 mg Route: IVP; Site: left antecubital; tw2 08:05 Follow up: Response: No adverse reaction; Pain is decreased tw2 Point of Care Testing: Blood Glucose: 03:45 Blood Glucose: 319 mg/dL; fc 07:34 Blood Glucose: 281 mg/dL; tw2 Ranges: Outcome: 07:54 Discharge ordered by . ps1 08:07 Discharged to home via wheelchair, with significant other. tw2 08:07 Condition: stable 08:07 Discharge instructions given to patient, significant other, Instructed on discharge instructions, follow up and referral plans. Demonstrated understanding of instructions, follow-up care. 08:08 Patient left the ED. tw2 Signatures: Dispatcher [employer] EDMS Vikki Campbell FNP-C FNP-Michelw Bethany Manuel Felicia RN More Knight Amber, RN RN ak1 Marlene Sargent RN RN tw2 Fortune, Kim, RN RN ea Valle, Kamari, MD MD ps1
--- NOTE | 2018-03-12 09:23 | RAD REPORT ---
EXAM DESCRIPTION: CT - Abdomen Pelvis W Contrast - 03/12/2018 6:45 am CLINICAL HISTORY: Abdominal pain/left lower quadrant pain surgery date 0-2 days incision and drainag e of a left lower quadrant abscess COMPARISON: March 11, 2018 TECHNIQUE: Computed axial tomography of the abdomen pelvis was obtained. 100 cc Isovue-300 was admin istered intravenously. Oral contrast was not requested which limits evaluation of bowel. A preliminar y report was generated by [employer] and reviewed prior to this dictation All CT scans are performed using dose optimization technique as appropriate and may include automated exposure control or mA/KV adjustment according to patient size. FINDINGS: The liver has a diminished attenuation consistent with fatty infiltration. Spleen, pancreas, adrenal and kidneys appear unremarkable. There is no evidence of diverticulitis. A tiny umbilical hernia is present Incision and debridement of a abscess within the left anterior subcutaneous fat of the pelvis is seen without residual fluid collection. IMPRESSION: Incision and debridement of a abscess within the left anterior subcutaneous fat of the p glenda is seen without residual fluid collection.
--- NOTE | 2018-03-12 09:41 | RAD REPORT ---
EXAM DESCRIPTION: Sudha Single View03/12/2018 4:22 am CLINICAL HISTORY: Cough COMPARISON: July 2017 FINDINGS: The lungs appear clear of acute infiltrate. The heart is normal size IMPRESSION: No acute abnormalities displayed
[2018-03-12 11:33] VITALS: TEMP 98.7
[2018-03-12 11:34] VITALS: O2SAT 99
[2018-03-12 11:38] VITALS: BP 143/71
== END 2018-03-12 08:08 | disposition home or self-care (01) ==
LOC: ER 03:40
DX: G43.809 Other migraine, not intractable, without status migrainosus (principal); G89.18 Other acute postprocedural pain; F41.1 Generalized anxiety disorder; I10 Essential (primary) hypertension; E11.9 Type 2 diabetes mellitus without complications; Z79.4 Long term (current) use of insulin; Z88.7 Allergy status to serum and vaccine
CPT/HCPCS: 36415; 71045; 74177; 80048; 80076; 81003; 82805; 82962; 83605; 83690; 84484; 85025; 87040; 93005; 96361; 96365; 96366; 96374; 96375; 99284; J2765; J7030; Q9967

== ENCOUNTER 2018-04-15 20:03 | Emergency (ER) | payer MEDICAID ==
[2018-04-15] MEDS ORDERED: ONDANSETRON 4 MG/2 ML VIAL ONE (21:37)
[2018-04-15] MEDS ORDERED: NA CHLORIDE 0.9% 1,000 ML ONE (21:37)
[2018-04-15] MEDS ORDERED: MORPHINE 4 MG/ML SYR ONE (21:37)
[2018-04-15 21:38] LABS: Absolute Lymphocytes (CBC) 1.9 K/uL (0.7-4.9); Absolute Monocytes 0.3 K/uL (0.1-1.3); Absolute Neutrophil 5.7 K/uL (1.8-8.0); Basophils % 0.6 % (0-1.3); Eosinophils % 0.6 % (0-4.4); Hematocrit 33.3 % (36.0-45.0); Lymphocytes % 23.8 % (15.3-44.8); MCH 24.8 pg (27.0-35.0); MCV 74.5 fL (80-100); MPV 8.7 fL (7.6-11.3); Monocytes % 3.9 % (3.3-12.3); RBC Red Blood Cell Count 4.47 M/uL (3.86-4.86)
[2018-04-15 21:50] LABS: Urine Bacteria <20 /HPF (<20); Urine Culture Reflex Order NOT NEEDED; Urine RBC NONE SEEN /HPF (NONE SEEN)
[2018-04-15 21:51] LABS: Urine Blood NEGATIVE (NEG); Urine Glucose NEGATIVE (NEG); Urine Protein NEGATIVE (NEG); Urine Specific Gravity 1.015 (1.005-1.030); Urine pH 5.5 (5.0-7.0)
[2018-04-15 22:01] LABS: ALT/SGPT 17 U/L (12-78); AST/SGOT 12 U/L (15-37); Albumin 3.6 g/dL (3.4-5.0); Alkaline Phosphatase 49 U/L (45-117); Amylase Level 42 U/L (25-115); BUN Blood Urea Nitrogen 13 mg/dL (7-18); Bicarbonate 24 mmol/L (21-32); Bilirubin Direct < 0.1 mg/dL (0-0.2); Bilirubin Total 0.2 mg/dL (0.2-1.0); Glucose Level 127 mg/dL (74-106); Lipase 142 U/L (73-393); Potassium 3.8 mmol/L (3.5-5.1); Protein, Total 7.9 g/dL (6.4-8.2); Sodium Level 140 mmol/L (136-145)
[2018-04-16] MEDS ORDERED: LORAZEPAM 1 MG TABLET ONE (00:22)
--- NOTE | 2018-04-16 01:34 | EDPHYS ---
Physician Documentation [facility] Name: Stephanie Noel Age: 53 yrs Sex: Female : 1965 Arrival Date: 04/15/2018 Time: 20:06 Bed 13 Private MD: Zack Taylor ED Physician Jitendra Bella HPI: 04/15 21:48 This 53 yrs old Black Female presents to ER via Wheelchair with complaints of Urinary pkl Retention, Fever. 21:48 The patient presents with abdominal pain in the left upper quadrant, in the left lower pkl quadrant. Onset: The symptoms/episode began/occurred this morning. The symptoms do not radiate. Associated signs and symptoms: Pertinent positives: fever. 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 ea Historical: - Allergies: 20:25 Tetanus Vaccines and Toxoid; ea 20:25 Lantus; ea - Home Meds: 20:25 atenolol 50 mg Oral tab 1 tab 2 times per day [Active]; lisinopril 20 mg Oral tab 1 tab ea once daily [Active]; Lyrica 50 mg Oral 1 cap daily [Active]; metformin 1,000 mg Oral tab 1 tab 2 times per day [Active]; Nexium 40 mg Oral cpDR 1 cap once daily [Active]; trazodone 50 mg Oral tab 1 tab nightly [Active]; Tresiba FlexTouch U-100 100 unit/mL (3 mL) subcutaneous inpn 68 unit daily [Active]; Xanax 1 mg Oral tab 1 tab 3 times per day [Active]; - PMHx: 20:26 Anxiety; Diabetes - IDDM; GERD; Hyperlipidemia; Hypertension; Panic Attacks; AVM; ea - PSHx: 20:26 abscess drainage; Cholecystectomy; rotator cuff repair to right side; ea - Immunization history:: Adult Immunizations up to date. - Social history:: Smoking status: Patient/guardian denies using tobacco. - Ebola Screening: : No symptoms or risks identified at this time. ROS: 21:48 Eyes: Negative for injury, pain, redness, and discharge, ENT: Negative for injury, pkl pain, and discharge, Neck: Negative for injury, pain, and swelling, Cardiovascular: Negative for chest pain, palpitations, and edema, Respiratory: Negative for shortness of breath, cough, wheezing, and pleuritic chest pain. 21:48 Abdomen/GI: Positive for abdominal pain, of the left upper quadrant and left lower quadrant, Negative for nausea, vomiting, and diarrhea. 21:48 Back: Negative for acute changes. 21:48 : Positive for difficulty urinating. 21:48 MS/extremity: Negative for acute changes. 21:48 Skin: Negative for rash. 21:48 Neuro: Negative for altered mental status. Exam: 21:48 Head/Face: Normocephalic, atraumatic. Eyes: Pupils equal round and reactive to light, pkl extra-ocular motions intact. Lids and lashes normal. Conjunctiva and sclera are non-icteric and not injected. Cornea within normal limits. Periorbital areas with no swelling, redness, or edema. ENT: Nares patent. No nasal discharge, no septal abnormalities noted. Tympanic membranes are normal and external auditory canals are clear. Oropharynx with no redness, swelling, or masses, exudates, or evidence of obstruction, uvula midline. Mucous membranes moist. Neck: Trachea midline, no thyromegaly or masses palpated, and no cervical lymphadenopathy. Supple, full range of motion without nuchal rigidity, or vertebral point tenderness. No Meningismus. Chest/axilla: Normal chest wall appearance and motion. Nontender with no deformity. No lesions are appreciated. Cardiovascular: Regular rate and rhythm with a normal S1 and S2. No gallops, murmurs, or rubs. Normal PMI, no JVD. No pulse deficits. Respiratory: Lungs have equal breath sounds bilaterally, clear to auscultation and percussion. No rales, rhonchi or wheezes noted. No increased work of breathing, no retractions or nasal flaring. 21:48 Abdomen/GI: Bowel sounds: normal, Palpation: soft, mild abdominal tenderness, in the left upper quadrant and left lower quadrant. 21:48 Back: Exam negative for acute changes. 21:48 : Exam negative for acute changes. 21:48 Musculoskeletal/extremity: Exam is negative for acute changes. 21:48 Skin: Exam negative for rash. 21:48 Neuro: Orientation: is normal, Mentation: is normal, Cranial nerves: grossly normal, Motor: is normal. Vital Signs: 20:20 BP 140 / 74; Pulse 95; Resp 19; Temp 99.2(O); Pulse Ox 100% on R/A; Weight 100.7 kg; ea Height 5 ft. (152.40 cm); Pain 0/10; 20:58 BP 155 / 81; Pulse 85; Resp 18; Pulse Ox 100% on R/A; Pain 0/10; aa1 21:53 BP 138 / 72; Pulse 85; Resp 18; Pulse Ox 99% on R/A; aa1 22:56 BP 143 / 75; Pulse 85; Resp 18; Pulse Ox 100% on R/A; Pain 0/10; aa1 04/16 00:30 BP 167 / 82; Pulse 92; Resp 18; Pulse Ox 100% on R/A; ea 01:23 BP 137 / 77; Pulse 95; Resp 18; Pulse Ox 100% on R/A; Pain 0/10; aa1 04/15 20:20 Body Mass Index 43.36 (100.70 kg, 152.40 cm) ea MDM: 04/15 20:07 Patient medically screened. pkl 22:31 Data reviewed: vital signs, nurses notes, lab test result(s), radiologic studies, CT pkl scan. 04/15 20:22 Order name: Urine Dipstick--Ancillary (enter results); Complete Time: 21:59 ms 04/15 21:09 Order name: Amylase, Serum pkl 04/15 21:09 Order name: Basic Metabolic Panel; Complete Time: 22:18 pkl 04/15 21:09 Order name: CBC with Diff; Complete Time: 21:59 pkl 04/15 21:09 Order name: Creatinine for Radiology; Complete Time: 21:59 pkl 04/15 21:09 Order name: Hepatic Function; Complete Time: 22:18 pkl 04/15 21:09 Order name: Lipase; Complete Time: 22:18 pkl 04/15 21:09 Order name: Urine Microscopic Only; Complete Time: 21:59 pkl 04/15 21:09 Order name: Amylase Level; Complete Time: 22:18 EDMS 04/15 21:10 Order name: CT Abd/Pelvis - W/Contrast pkl 04/15 20:25 Order name: Urine Dipstick-Ancillary (obtain specimen); Complete Time: 20:25 aa1 04/15 21:09 Order name: IV Saline Lock; Complete Time: 21:31 pkl 04/15 21:09 Order name: Labs collected and sent; Complete Time: 21:31 pkl Administered Medications: 21:39 Drug: NS 0.9% 1000 ml Route: IV; Rate: 125 ml/hr; Site: right upper arm; aa1 04/16 01:45 Follow up: Response: No adverse reaction; IV Status: Completed infusion ea 01:46 Follow up: IV Status: Completed infusion aa1 04/15 21:39 Drug: Zofran 4 mg Route: IVP; Site: right upper arm; aa1 22:40 Follow up: Response: No adverse reaction aa1 21:41 Drug: morphine 4 mg Route: IVP; Site: right upper arm; aa1 22:40 Follow up: Response: No adverse reaction; Pain is decreased aa1 04/16 00:20 Drug: Ativan 1 mg Route: PO; aa1 01:45 Follow up: Response: No adverse reaction; Anxiety decreased aa1 Disposition: 04/16/18 01:34 Discharged to Home. Impression: Abdominal pain. - Condition is Stable. - Prescriptions for Ultram 50 mg Oral Tablet - take 1 tablet by ORAL route every 8 hours As needed; 20 tablet. - Medication Reconciliation Form, Thank You Letter, Antibiotic Education, Prescription Opioid Use form. - Follow up: Maryan Tran MD; When: 1 - 2 days; Reason: Re-evaluation by your physician. - Problem is new. - Symptoms have improved. Signatures: Dispatcher [employer] EDLorelei Metz RN RN aa1 Jitendra Bella MD MD pkKim Correia RN RN ea Corrections: (The following items were deleted from the chart) 01:47 01:34 04/16/2018 01:34 Discharged to Home. Impression: Abdominal pain. Condition is ea Stable. Forms are Medication Reconciliation Form, Thank You Letter, Antibiotic Education, Prescription Opioid Use. Follow up: Maryan Tran; When: 1 - 2 days; Reason: Re-evaluation by your physician. Problem is new. Symptoms have improved. pkl
--- NOTE | 2018-04-16 01:34 | ER ---
Nurse's Notes [facility] Name: Stephanie Noel Age: 53 yrs Sex: Female : 1965 Arrival Date: 04/15/2018 Time: 20:06 Bed 13 Private MD: Zack Taylor Diagnosis: Abdominal pain Presentation: 04/15 20:20 Presenting complaint: Patient states: She was walking this AM and started feeling ea pressure on left side of abdomen, reports "it feels like everything shifted to the left side of my body and I started feeling like I needed to pee but I couldn't completely hold it" Pt reports her urine smells like ammonia. Transition of care: patient was not received from another setting of care. Onset of symptoms was April 15, 2018. Risk Assessment: Do you want to hurt yourself or someone else? Patient reports no desire to harm self or others. Initial Sepsis Screen: Does the patient meet any 2 criteria? No. Patient's initial sepsis screen is negative. Does the patient have a suspected source of infection? No. Patient's initial sepsis screen is negative. Care prior to arrival: pt reports she went to [facility] but left. 20:20 Method Of Arrival: Wheelchair ea 20:20 Acuity: MADONNA 3 ea Triage Assessment: 20:27 General: Appears uncomfortable, Behavior is calm, cooperative, appropriate for age. ea Pain: Denies pain. GI: Abdomen is round. : Reports urgency, urinary frequency, since this AM. 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 LMP N/A - Post-menopause ea Historical: - Allergies: 20:25 Tetanus Vaccines and Toxoid; ea 20:25 Lantus; ea - Home Meds: 20:25 atenolol 50 mg Oral tab 1 tab 2 times per day [Active]; lisinopril 20 mg Oral tab 1 tab ea once daily [Active]; Lyrica 50 mg Oral 1 cap daily [Active]; metformin 1,000 mg Oral tab 1 tab 2 times per day [Active]; Nexium 40 mg Oral cpDR 1 cap once daily [Active]; trazodone 50 mg Oral tab 1 tab nightly [Active]; Tresiba FlexTouch U-100 100 unit/mL (3 mL) subcutaneous inpn 68 unit daily [Active]; Xanax 1 mg Oral tab 1 tab 3 times per day [Active]; - PMHx: 20:26 Anxiety; Diabetes - IDDM; GERD; Hyperlipidemia; Hypertension; Panic Attacks; AVM; ea - PSHx: 20:26 abscess drainage; Cholecystectomy; rotator cuff repair to right side; ea - Immunization history:: Adult Immunizations up to date. - Social history:: Smoking status: Patient/guardian denies using tobacco. - Ebola Screening: : No symptoms or risks identified at this time. Screenin:29 Abuse screen: Denies threats or abuse. Nutritional screening: No deficits noted. ea Tuberculosis screening: No symptoms or risk factors identified. Fall Risk None identified. Assessment: 20:30 General: Appears in no apparent distress. comfortable, obese, Behavior is calm, aa1 cooperative, appropriate for age. Pain: Complains of pain in left lower quadrant and left upper quadrant Pain currently is 0 out of 10 on a pain scale. Quality of pain is described as pressure, Pain began this morning Is continuous. Neuro: Level of Consciousness is awake, alert, obeys commands, Oriented to person, place, time, situation, Moves all extremities. Full function Gait is steady, Speech is normal. Cardiovascular: Heart tones S1 S2 present Rhythm is regular. Respiratory: Airway is patent Respiratory effort is even, unlabored, Respiratory pattern is regular, symmetrical. GI: Abdomen is obese, Bowel sounds present X 4 quads. Abd is soft and non tender X 4 quads. Reports bloating, Patient currently denies constipation, diarrhea, nausea, vomiting. : Reports incontinence. EENT: No signs and/or symptoms were reported regarding the EENT system. Derm: Skin is intact, is healthy with good turgor, Skin is pink, warm \\T\\ dry. Musculoskeletal: Circulation, motion, and sensation intact. Capillary refill < 3 seconds. 20:58 Reassessment: Patient appears in no apparent distress at this time. Patient and/or aa1 family updated on plan of care and expected duration. Pain level reassessed. Patient is alert, oriented x 3, equal unlabored respirations, skin warm/dry/pink. Pt still awaiting initial assessment from MD. 21:44 Reassessment: Patient appears in no apparent distress at this time. Patient and/or aa1 family updated on plan of care and expected duration. Pain level reassessed. Patient is alert, oriented x 3, equal unlabored respirations, skin warm/dry/pink. Awaiting lab results \\T\\ CT scan3. 22:10 Reassessment: Patient appears in no apparent distress at this time. Patient and/or aa1 family updated on plan of care and expected duration. Pain level reassessed. Patient is alert, oriented x 3, equal unlabored respirations, skin warm/dry/pink. CT notified pt finished drinking PO contrast. 22:57 Reassessment: Patient appears in no apparent distress at this time. Patient and/or aa1 family updated on plan of care and expected duration. Pain level reassessed. Patient is alert/active/playful, equal unlabored respirations, skin warm/dry/pink. Awaiting CT scan. 04/16 00:10 Reassessment: Patient appears in no apparent distress at this time. Patient and/or aa1 family updated on plan of care and expected duration. Pain level reassessed. Patient is alert, oriented x 3, equal unlabored respirations, skin warm/dry/pink. Pt reports feeling anxious after being in [place] and has not had her anxiety medication yet this evening. MD notified. 01:23 Reassessment: Patient appears in no apparent distress at this time. Patient and/or aa1 family updated on plan of care and expected duration. Pain level reassessed. Patient is alert, oriented x 3, equal unlabored respirations, skin warm/dry/pink. Reports anxiety improved. Awaiting CT results. 01:42 Reassessment: Patient and/or family updated on plan of care and expected duration. Pain ea level reassessed. Patient is alert, oriented x 3, equal unlabored respirations, skin warm/dry/pink. Discharge instructions given to patient, verbalized the understanding of instruction. Pt left ED via wheelchair accompanied by family. Vital Signs: 04/15 20:20 BP 140 / 74; Pulse 95; Resp 19; Temp 99.2(O); Pulse Ox 100% on R/A; Weight 100.7 kg; ea Height 5 ft. (152.40 cm); Pain 0/10; 20:58 BP 155 / 81; Pulse 85; Resp 18; Pulse Ox 100% on R/A; Pain 0/10; aa1 21:53 BP 138 / 72; Pulse 85; Resp 18; Pulse Ox 99% on R/A; aa1 22:56 BP 143 / 75; Pulse 85; Resp 18; Pulse Ox 100% on R/A; Pain 0/10; aa1 04/16 00:30 BP 167 / 82; Pulse 92; Resp 18; Pulse Ox 100% on R/A; ea 01:23 BP 137 / 77; Pulse 95; Resp 18; Pulse Ox 100% on R/A; Pain 0/10; aa1 04/15 20:20 Body Mass Index 43.36 (100.70 kg, 152.40 cm) ea ED Course: 04/15 20:06 Patient arrived in ED. al2 20:07 Zack Taylor MD is Private Physician. al2 20:07 Jitendra Bella MD is Attending Physician. pkl 20:20 Urine collected: clean catch specimen, clear. aa1 20:24 Triage completed. ea 20:25 Lorelei Nova, LUCIANO is Primary Nurse. aa1 20:29 Patient has correct armband on for positive identification. Bed in low position. Call ea light in reach. Side rails up X2. 20:29 Arm band placed on right wrist. ea 21:20 Initial lab(s) drawn, by me, sent to lab. Inserted saline lock: 22 gauge in right upper aa1 arm, using aseptic technique. Blood collected. 04/16 00:07 CT Abd/Pelvis - W/Contrast In Process Unspecified. EDMS 00:18 CT completed. Pt tolerated procedure poorly. Patient moved to CT via wheelchair. Patient moved back from CT. 01:33 Maryan Tran MD is Referral Physician. pkl 01:44 No provider procedures requiring assistance completed. IV discontinued, intact, ea bleeding controlled, No redness/swelling at site. Pressure dressing applied. Administered Medications: 04/15 21:39 Drug: NS 0.9% 1000 ml Route: IV; Rate: 125 ml/hr; Site: right upper arm; aa1 04/16 01:45 Follow up: Response: No adverse reaction; IV Status: Completed infusion ea 01:46 Follow up: IV Status: Completed infusion aa1 04/15 21:39 Drug: Zofran 4 mg Route: IVP; Site: right upper arm; aa1 22:40 Follow up: Response: No adverse reaction aa1 21:41 Drug: morphine 4 mg Route: IVP; Site: right upper arm; aa1 22:40 Follow up: Response: No adverse reaction; Pain is decreased aa1 04/16 00:20 Drug: Ativan 1 mg Route: PO; aa1 01:45 Follow up: Response: No adverse reaction; Anxiety decreased aa1 Outcome: 01:34 Discharge ordered by MD. tamayo 01:45 Discharged to home via wheelchair, with family. ea 01:45 Condition: improved 01:45 Discharge instructions given to patient, Instructed on discharge instructions, follow up and referral plans. medication usage, Demonstrated understanding of instructions, follow-up care, medications, Prescriptions given X 1. 01:47 Patient left the ED. ea Signatures: Dispatcher [employer] EDMS Lorelei Nova RN RN aa1 Jitendra Bella MD MD pkl Hagler, Ervin eh Antunez, Elena, RN RN ea Love, Angelica al2 Corrections: (The following items were deleted from the chart) 01:46 01:44 BP 165 / 81; Pulse 90bpm; Resp 18bpm; Pulse Ox 100% RA; Temp 98.7F Oral; Pain ea 0/10; ea
[2018-04-16 02:00] VITALS: TEMP 99.2
[2018-04-16 02:04] VITALS: O2SAT 100
[2018-04-16 02:06] VITALS: BP 137/77
--- NOTE | 2018-04-16 10:22 | RAD REPORT ---
EXAM DESCRIPTION: CT - Abdomen Pelvis W Contrast - 04/16/2018 2:43 am CLINICAL HISTORY: Left-sided abdominal pain. A preliminary written report was provided at the time of the study, and the report was reviewed prio r to final dictation. . COMPARISON: CT study February 2018 TECHNIQUE: Biphasic, helical CT imaging of the abdomen and pelvis was performed following 100 ml non -ionic IV contrast. Oral contrast was given. All CT scans are performed using dose optimization technique as appropriate and may include automated exposure control or mA/KV adjustment according to patient size. FINDINGS: Exam is degraded by motion. No acute lung base finding. No pericardial thickening or effusion. Liver shows fatty infiltration pattern. Benign calcification present. No suspicious liver finding. Sp benji and pancreas show no suspicious findings. Cholecystectomy clips are present. No biliary tree dil atation. No pyelonephritis or acute renal parenchymal process. Contracted urinary bladder shows no brown spicious finding. Uterus shows no suspicious finding. Right ovary is unremarkable. Left ovary contain s a 3.2 centimeter cyst. For the patient is postmenopausal, follow-up imaging in 3-4 months recommend ed to assure stability. No dilated bowel loops or bowel wall thickening. No free air, free fluid or inflammatory stranding. No hernia, mass or bulky lymphadenopathy. No adrenal abnormality. No suspicious bony findings. IMPRESSION: Contrast-enhanced CT imaging shows no emergent finding. Fatty infiltration of the liver. A 3.3 centimeter left ovarian cyst is present. This shows benign characteristics but follow-up would be recommended in 3-4 months if the patient is postmenopausal.
== END 2018-04-16 01:47 | disposition home or self-care (01) ==
LOC: ER 20:03
DX: R10.9 Unspecified abdominal pain (principal); R33.9 Retention of urine, unspecified; R50.9 Fever, unspecified; E11.9 Type 2 diabetes mellitus without complications; I10 Essential (primary) hypertension; Z79.4 Long term (current) use of insulin; Z88.7 Allergy status to serum and vaccine; Z88.8 Allergy status to other drugs, medicaments and biological substances
CPT/HCPCS: 36415; 74177; 80048; 80076; 81003; 81015; 82150; 83690; 85025; 96361; 96374; 96375; 99284; J2405; J7030; Q9967

== ENCOUNTER 2018-04-17 05:00 | Emergency (ER) | payer MEDICAID ==
--- NOTE | 2018-04-17 05:51 | ER ---
Nurse's Notes [facility] Name: Stephanie Noel Age: 53 yrs Sex: Female : 1965 Arrival Date: 04/17/2018 Time: 05:01 Bed 7 Private MD: Zack Taylor Diagnosis: Essential (primary) hypertension;Abdominal tenderness;Obesity, unspecified;Unspecified ovarian cysts-3.3 cm left ovarian Presentation: 04/17 05:00 Presenting complaint: Patient states: that she is having issues with her high bp. fc States it was 199/100. Thinks it has something to do with her abd pain which she has appt with Dr Tran to address on April 22. Also has a headache. Did take her Lisinopril and Atenolol prior to coming to ER. Transition of care: patient was not received from another setting of care. Onset of symptoms was April 17, 2018. Risk Assessment: Do you want to hurt yourself or someone else? Patient reports no desire to harm self or others. Initial Sepsis Screen: Does the patient meet any 2 criteria? No. Patient's initial sepsis screen is negative. Does the patient have a suspected source of infection? No. Patient's initial sepsis screen is negative. Care prior to arrival: Medication(s) given: Lisinopril and Atenolol. 05:00 Method Of Arrival: Ambulatory 05:00 Acuity: MADONNA 3 Historical: - Allergies: 05:18 Lantus; 05:18 Tetanus Vaccines and Toxoid; fc - Home Meds: 05:18 atenolol 50 mg Oral tab 1 tab 2 times per day [Active]; lisinopril 20 mg Oral tab 1 tab fc once daily [Active]; Lyrica 50 mg Oral 1 cap daily [Active]; metformin 1,000 mg Oral tab 1 tab 2 times per day [Active]; Tresiba FlexTouch U-100 100 unit/mL (3 mL) subcutaneous inpn 68 unit daily [Active]; Xanax 1 mg Oral tab 1 tab 3 times per day [Active]; trazodone 50 mg Oral tab 1 tab nightly [Active]; Nexium 40 mg Oral cpDR 1 cap once daily [Active]; 05:22 pioglitazone oral oral 1 tab once daily [Active]; fc - PMHx: 05:18 Anxiety; AVM; Diabetes - IDDM; GERD; Hyperlipidemia; Hypertension; Panic Attacks; fc - PSHx: 05:18 abscess drainage; Cholecystectomy; rotator cuff repair to right side; fc - Immunization history:: Last tetanus immunization: unknown, pt is allergic. - Social history:: Smoking status: Patient/guardian denies using tobacco. - Ebola Screening: : Patient negative for fever greater than or equal to 101.5 degrees Fahrenheit, and additional compatible Ebola Virus Disease symptoms Patient denies exposure to infectious person Patient denies travel to an Ebola-affected area in the 21 days before illness onset. - Family history:: not pertinent. Screenin:16 Abuse screen: Denies threats or abuse. Nutritional screening: No deficits noted. fc Tuberculosis screening: No symptoms or risk factors identified. Fall Risk None identified. Assessment: 05:21 General: Appears in no apparent distress. comfortable, Behavior is calm, cooperative, aa1 appropriate for age. Pain: Complains of pain in head Pain currently is 9 out of 10 on a pain scale. Quality of pain is described as aching, throbbing. Neuro: Level of Consciousness is awake, alert, obeys commands, Oriented to person, place, time, situation, Moves all extremities. Full function Gait is steady, Speech is normal, Facial symmetry appears normal, Pupils are PERRLA, Reports headache. Cardiovascular: Denies chest pain, palpitations, shortness of breath, Heart tones S1 S2 present Rhythm is regular. Respiratory: Airway is patent Respiratory effort is even, unlabored, Respiratory pattern is regular, symmetrical. GI: Reports lower abdominal pain. : No signs and/or symptoms were reported regarding the genitourinary system. EENT: No signs and/or symptoms were reported regarding the EENT system. Derm: Skin is intact, is healthy with good turgor, Skin is pink, warm \T\ dry. Musculoskeletal: Circulation, motion, and sensation intact. Capillary refill < 3 seconds. 06:09 Reassessment: Patient appears in no apparent distress at this time. Patient is alert, aa1 oriented x 3, equal unlabored respirations, skin warm/dry/pink. Discussed d/c \T\ f/u instructions with pt \T\ family; denies questions or concerns at this time Patient states feeling better. Vital Signs: 05:00 BP 176 / 75; Pulse 86; Resp 20; Temp 99.1(O); Pulse Ox 99% on R/A; Weight 100.24 kg (R); Height 5 ft. 0 in. (152.40 cm) (R); Pain 9/10; 05:30 BP 143 / 72; Pulse 75; Resp 18; Pulse Ox 100% on R/A; aa1 05:00 Body Mass Index 43.16 (100.24 kg, 152.40 cm) ED Course: 05:00 Arm band placed on Patient placed in an exam room, on a stretcher. 05:01 Patient arrived in ED. ds1 05:01 Zack Taylor MD is Private Physician. ds1 05:15 Triage completed. 05:20 Lorelei Nova, RN is Primary Nurse. aa1 05:21 Patient has correct armband on for positive identification. Bed in low position. Call aa1 light in reach. Pulse ox on. NIBP on. Warm blanket given. 05:33 Timo Angel MD is Attending Physician. [facility] 05:48 Zack Taylor MD is Referral Physician. [facility] 05:49 Maryan Tran MD is Referral Physician. [facility] 06:00 EKG done, by ED staff, reviewed by Timo Angel MD. aa1 06:09 No provider procedures requiring assistance completed. Patient did not have IV access aa1 during this emergency room visit. Administered Medications: No medications were administered Outcome: 05:51 Discharge ordered by . [facility] 06:11 Discharged to home ambulatory, with family, with significant other. aa1 06:11 Condition: good 06:11 Discharge instructions given to patient, family, Instructed on discharge instructions, follow up and referral plans. medication usage, Demonstrated understanding of instructions, follow-up care, medications, Prescriptions given X 3. 06:11 Patient left the ED. aa1 Signatures: Lorelei Nova, LUCIANO RN aa1 Timo Angel MD MD cha Chretien, Felicia, RN RN Ami Fatima ds1
--- NOTE | 2018-04-17 05:51 | EDPHYS ---
Physician Documentation [facility] Name: Stephanie Noel Age: 53 yrs Sex: Female : 1965 Arrival Date: 04/17/2018 Time: 05:01 Bed 7 Private MD: Zack Taylor ED Physician Timo Angel HPI: 04/17 05:42 This 53 yrs old Black Female presents to ER via Ambulatory with complaints of High georgina Blood Pressure. 05:42 The patient has elevated blood pressure and discovered this at home. Onset: The georgina symptoms/episode began/occurred this morning, yesterday. Modifying factors: The symptoms are aggravated by activity, The symptoms are alleviated by remaining still. Associated signs and symptoms: The patient has no apparent associated signs or symptoms. Severity of symptoms: At its worst the blood pressure was mild, moderate, in the emergency department the blood pressure is now normal. The blood pressure problem is resolved. The patient has experienced similar episodes in the past, multiple times. Historical: - Allergies: 05:18 Lantus; fc 05:18 Tetanus Vaccines and Toxoid; fc - Home Meds: 05:18 atenolol 50 mg Oral tab 1 tab 2 times per day [Active]; lisinopril 20 mg Oral tab 1 tab fc once daily [Active]; Lyrica 50 mg Oral 1 cap daily [Active]; metformin 1,000 mg Oral tab 1 tab 2 times per day [Active]; Tresiba FlexTouch U-100 100 unit/mL (3 mL) subcutaneous inpn 68 unit daily [Active]; Xanax 1 mg Oral tab 1 tab 3 times per day [Active]; trazodone 50 mg Oral tab 1 tab nightly [Active]; Nexium 40 mg Oral cpDR 1 cap once daily [Active]; 05:22 pioglitazone oral oral 1 tab once daily [Active]; fc - PMHx: 05:18 Anxiety; AVM; Diabetes - IDDM; GERD; Hyperlipidemia; Hypertension; Panic Attacks; fc - PSHx: 05:18 abscess drainage; Cholecystectomy; rotator cuff repair to right side; fc - Immunization history:: Last tetanus immunization: unknown, pt is allergic. - Social history:: Smoking status: Patient/guardian denies using tobacco. - Ebola Screening: : Patient negative for fever greater than or equal to 101.5 degrees Fahrenheit, and additional compatible Ebola Virus Disease symptoms Patient denies exposure to infectious person Patient denies travel to an Ebola-affected area in the 21 days before illness onset. - Family history:: not pertinent. ROS: 05:42 Constitutional: Negative for fever, chills, and weight loss, Eyes: Negative for injury, georgina pain, redness, and discharge, ENT: Negative for injury, pain, and discharge, Neck: Negative for injury, pain, and swelling, Cardiovascular: Negative for chest pain, palpitations, and edema, Respiratory: Negative for shortness of breath, cough, wheezing, and pleuritic chest pain, Back: Negative for injury and pain, : Negative for injury, bleeding, discharge, and swelling, MS/Extremity: Negative for injury and deformity, Skin: Negative for injury, rash, and discoloration, Neuro: Negative for headache, weakness, numbness, tingling, and seizure, Psych: Negative for depression, anxiety, suicide ideation, homicidal ideation, and hallucinations, Allergy/Immunology: Negative for hives, rash, and allergies, Endocrine: Negative for neck swelling, polydipsia, polyuria, polyphagia, and marked weight changes, Hematologic/Lymphatic: Negative for swollen nodes, abnormal bleeding, and unusual bruising. 05:42 Abdomen/GI: Positive for abdominal pain, of the left upper quadrant, right lower quadrant and left lower quadrant. Exam: 05:42 Constitutional: This is a well developed, well nourished patient who is awake, alert, georgina and in no acute distress. Head/Face: Normocephalic, atraumatic. Eyes: Pupils equal round and reactive to light, extra-ocular motions intact. Lids and lashes normal. Conjunctiva and sclera are non-icteric and not injected. Cornea within normal limits. Periorbital areas with no swelling, redness, or edema. ENT: Nares patent. No nasal discharge, no septal abnormalities noted. Tympanic membranes are normal and external auditory canals are clear. Oropharynx with no redness, swelling, or masses, exudates, or evidence of obstruction, uvula midline. Mucous membranes moist. Neck: Trachea midline, no thyromegaly or masses palpated, and no cervical lymphadenopathy. Supple, full range of motion without nuchal rigidity, or vertebral point tenderness. No Meningismus. Chest/axilla: Normal chest wall appearance and motion. Nontender with no deformity. No lesions are appreciated. Cardiovascular: Regular rate and rhythm with a normal S1 and S2. No gallops, murmurs, or rubs. Normal PMI, no JVD. No pulse deficits. Respiratory: Lungs have equal breath sounds bilaterally, clear to auscultation and percussion. No rales, rhonchi or wheezes noted. No increased work of breathing, no retractions or nasal flaring. Back: No spinal tenderness. No costovertebral tenderness. Full range of motion. Skin: Warm, dry with normal turgor. Normal color with no rashes, no lesions, and no evidence of cellulitis. MS/ Extremity: Pulses equal, no cyanosis. Neurovascular intact. Full, normal range of motion. Neuro: Awake and alert, GCS 15, oriented to person, place, time, and situation. Cranial nerves II-XII grossly intact. Motor strength 5/5 in all extremities. Sensory grossly intact. Cerebellar exam normal. Normal gait. 05:42 Abdomen/GI: Inspection: abdomen appears normal. 05:42 Abdomen/GI: Inspection: distension, Bowel sounds: normal, Liver: no appreciated georgina palpable abnormalities, Hernia: not appreciated. Vital Signs: 05:00 BP 176 / 75; Pulse 86; Resp 20; Temp 99.1(O); Pulse Ox 99% on R/A; Weight 100.24 kg fc (R); Height 5 ft. 0 in. (152.40 cm) (R); Pain 9/10; 05:30 BP 143 / 72; Pulse 75; Resp 18; Pulse Ox 100% on R/A; aa1 05:00 Body Mass Index 43.16 (100.24 kg, 152.40 cm) MDM: 05:33 Patient medically screened. [facility] 05:48 Data reviewed: vital signs, nurses notes, lab test result(s), EKG, radiologic studies. [facility] 04/17 05:48 Order name: EKG; Complete Time: 05:48 [facility] 04/17 05:48 Order name: EKG - Nurse/Tech; Complete Time: 06:09 [facility] Administered Medications: No medications were administered Disposition: 04/17/18 05:51 Discharged to Home. Impression: Essential (primary) hypertension, Abdominal tenderness, Obesity, unspecified, Unspecified ovarian cysts - 3.3 cm left ovarian. - Condition is Stable. - Discharge Instructions: Abdominal Pain, Adult, Hypertension, Ovarian Cyst, Abdominal Pain, Adult, Sbvz-vs-Zleb, Ovarian Cyst, Vvmu-dc-[id number], Hypertension, Ysvv-da-Bjxw, How to Take Your Blood Pressure, Bngu-ox-Pwdl, Managing Your Hypertension. - Prescriptions for Bentyl 20 mg Oral Tablet - take 1 tablet by ORAL route every 6 hours As needed; 20 tablet. Pepcid 20 mg Oral Tablet - take 1 tablet by ORAL route every 12 hours for 10 days; 20 tablet. Zofran 4 mg Oral Tablet - take 1 tablet by ORAL route every 12 hours As needed; 20 tablet. - Medication Reconciliation Form, Thank You Letter, Antibiotic Education, Prescription Opioid Use form. - Follow up: Zack Taylor MD; When: 1 - 2 days; Reason: Recheck today's complaints, Continuance of care, Re-evaluation by your physician. Follow up: Maryan Tran MD; When: 2 - 3 days; Reason: Recheck today's complaints, Continuance of care, Re-evaluation by your physician. - Problem is new. - Symptoms have improved. Signatures: Lorelei Nova RN RN aa1 Timo Angel MD MD cha Chretien, Felicia, RN RN fc Corrections: (The following items were deleted from the chart) 06:11 05:51 04/17/2018 05:51 Discharged to Home. Impression: Essential (primary) aa1 hypertension; Abdominal tenderness; Obesity, unspecified; Unspecified ovarian cysts - 3.3 cm left ovarian. Condition is Stable. Forms are Medication Reconciliation Form, Thank You Letter, Antibiotic Education, Prescription Opioid Use. Follow up: Zack Taylor; When: 1 - 2 days; Reason: Recheck today's complaints, Continuance of care, Re-evaluation by your physician. Follow up: Maryan Tran; When: 2 - 3 days; Reason: Recheck today's complaints, Continuance of care, Re-evaluation by your physician. Problem is new. Symptoms have improved. georgina
[2018-04-17 06:15] VITALS: TEMP 99.1
[2018-04-17 06:16] VITALS: BP 143/72; O2SAT 100
--- NOTE | 2018-04-17 12:11 | EKG ---
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
== END 2018-04-17 06:11 | disposition home or self-care (01) ==
LOC: ER 05:00
DX: I10 Essential (primary) hypertension (principal); R10.9 Unspecified abdominal pain; E66.9 Obesity, unspecified; Z68.41 Body mass index [BMI] 40.0-44.9, adult; N83.202 Unspecified ovarian cyst, left side; E11.9 Type 2 diabetes mellitus without complications; E78.5 Hyperlipidemia, unspecified; Z88.7 Allergy status to serum and vaccine; Z88.8 Allergy status to other drugs, medicaments and biological substances; Z79.4 Long term (current) use of insulin
CPT/HCPCS: 93005; 99283

== ENCOUNTER 2018-08-31 15:56 | Emergency (ER) | payer MEDICAID ==
--- NOTE | 2018-08-31 17:06 | RAD REPORT ---
EXAM DESCRIPTION: CT - Head Brain Wo Cont - 08/31/2018 4:48 pm CLINICAL HISTORY: Weakness, dizziness, syncope COMPARISON: July 2017 TECHNIQUE: Axial 5 mm thick images of the head were obtained without IV contrast. All CT scans are performed using dose optimization technique as appropriate and may include automated exposure control or mA/KV adjustment according to patient size. FINDINGS: No intracranial hemorrhage, mass, edema or shift of mid-line structures. No acute cortical based infarction. No cortical edema or sulcal effacement identified. No measurable degree of atrophy seen. Ventricles are normal. No abnormal extra-axial fluid collections. Patchy diminished attenuatio n in the cerebral white matter is seen. This is more pronounced around the posterior limb left internet e commerce specialist al capsule. No focal neurologic deficits were detailed. Mastoid air cells and visualized portions of the paranasal sinuses are clear. No acute bony findings. IMPRESSION: No hemorrhage, mass or acute cortical infarction. Minimal white matter attenuation abnormalities not clearly different from comparison. No focal neurologic deficits were detailed. If the patient has focal neurologic symptoms suspicious f or CVA, MR imaging could be utilized to assess for any nonhemorrhagic CVA that may be obscured.
[2018-08-31 17:15] LABS: Hematocrit 35.6 % (36.0-45.0); Lymphocytes % 22.6 % (15.3-44.8); MPV 9.2 fL (7.6-11.3); RBC Red Blood Cell Count 4.75 M/uL (3.86-4.86)
[2018-08-31 17:16] LABS: Absolute Monocytes 0.4 K/uL (0.1-1.3); Absolute Neutrophil 6.1 K/uL (1.8-8.0); Basophils % 0.8 % (0-1.3); Eosinophils % 1.7 % (0-4.4); Monocytes % 4.8 % (3.3-12.3)
[2018-08-31 17:18] LABS: Protime INR 0.98
--- NOTE | 2018-08-31 17:19 | RAD REPORT ---
EXAM DESCRIPTION: RAD - Chest Single View - 08/31/2018 5:00 pm CLINICAL HISTORY: Cough and congestion COMPARISON: March 12 TECHNIQUE: AP portable chest image was obtained 1655 hours . FINDINGS: Lungs are clear. Heart and vasculature are normal. No measurable pleural effusion and no p neumothorax. Bilateral shoulder joint degenerative changes are present matching prior study. No acute aortic findings suspected. IMPRESSION: No acute cardiopulmonary process. No significant change from comparison.
[2018-08-31] MEDS ORDERED: ACETAMINOPHEN 325 MG TABLET ONE (17:35)
[2018-08-31] MEDS ORDERED: MECLIZINE HCL 12.5 MG TAB ONE (17:36)
[2018-08-31] MEDS ORDERED: NA CHLORIDE 0.9% 1,000 ML ONE (17:36)
[2018-08-31] MEDS ORDERED: FENTANYL CITR 100 MCG/2 ML ONE (17:36)
[2018-08-31] MEDS ORDERED: ONDANSETRON 4 MG/2 ML VIAL ONE (17:36)
[2018-08-31 17:37] LABS: ALT/SGPT 22 U/L (12-78); AST/SGOT 10 U/L (15-37); Albumin 3.9 g/dL (3.4-5.0); Alkaline Phosphatase 54 U/L (45-117); BUN Blood Urea Nitrogen 17 mg/dL (7-18); Bicarbonate 23 mmol/L (21-32); Bilirubin Direct < 0.1 mg/dL (0-0.2); Bilirubin Total 0.2 mg/dL (0.2-1.0); Glucose Level 153 mg/dL (74-106); Lipase 192 U/L (73-393); Magnesium 1.9 mg/dL (1.8-2.4); NT PRO-BNP 17 pg/mL (<125); Potassium 4.3 mmol/L (3.5-5.1); Protein, Total 8.2 g/dL (6.4-8.2); Sodium Level 139 mmol/L (136-145); Troponin (Emerg Dept Use Only) < 0.02 ng/mL (0.0-0.045)
--- NOTE | 2018-08-31 18:03 | EDPHYS ---
Physician Documentation [facility] Name: Stephanie Noel Age: 53 yrs Sex: Female : 1965 Arrival Date: 08/31/2018 Time: 15:57 Bed 7 Private MD: Zack Taylor ED Physician Timo Angel HPI: 08/31 16:33 This 53 yrs old Black Female presents to ER via Ambulatory with complaints of Blood georgina Pressure Problem, Dizziness. 16:33 The patient presents with dizziness, lightheadedness, feeling off balance, sense of georgina spinning. Onset: The symptoms/episode began/occurred 1 day(s) ago. Context: occurred at home. Modifying factors: The symptoms are alleviated by holding head still, the symptoms are aggravated by movement of head, standing up, changing position. Associated signs and symptoms: Pertinent positives: nausea. Severity of symptoms: At their worst the symptoms were mild in the emergency department the symptoms are unchanged. Patient's baseline: Neuro: alert and fully oriented. The patient has experienced similar episodes in the past, a few times. 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 - Social history:: Smoking status: Patient/guardian denies using tobacco. - Ebola Screening: : Patient denies exposure to infectious person Patient denies travel to an Ebola-affected area in the 21 days before illness onset. - Family history:: not pertinent. ROS: 16:33 Constitutional: Negative for fever, chills, and weight loss, Eyes: Negative for injury, georgina pain, redness, and discharge, ENT: Negative for injury, pain, and discharge, Neck: Negative for injury, pain, and swelling, Cardiovascular: Negative for chest pain, palpitations, and edema, Respiratory: Negative for shortness of breath, cough, wheezing, and pleuritic chest pain, Abdomen/GI: Negative for abdominal pain, nausea, vomiting, diarrhea, and constipation, Back: Negative for injury and pain, : Negative for injury, bleeding, discharge, and swelling, MS/Extremity: Negative for injury and deformity, Skin: Negative for injury, rash, and discoloration, Psych: Negative for depression, anxiety, suicide ideation, homicidal ideation, and hallucinations, Allergy/Immunology: Negative for hives, rash, and allergies, Endocrine: Negative for neck swelling, polydipsia, polyuria, polyphagia, and marked weight changes, Hematologic/Lymphatic: Negative for swollen nodes, abnormal bleeding, and unusual bruising. 16:33 Neuro: Positive for dizziness, headache. Exam: 16:33 Constitutional: This is a well developed, well nourished patient who is awake, alert, georgina and in no acute distress. Head/Face: Normocephalic, atraumatic. Eyes: Pupils equal round and reactive to light, extra-ocular motions intact. Lids and lashes normal. Conjunctiva and sclera are non-icteric and not injected. Cornea within normal limits. Periorbital areas with no swelling, redness, or edema. ENT: Nares patent. No nasal discharge, no septal abnormalities noted. Tympanic membranes are normal and external auditory canals are clear. Oropharynx with no redness, swelling, or masses, exudates, or evidence of obstruction, uvula midline. Mucous membranes moist. Neck: Trachea midline, no thyromegaly or masses palpated, and no cervical lymphadenopathy. Supple, full range of motion without nuchal rigidity, or vertebral point tenderness. No Meningismus. Chest/axilla: Normal chest wall appearance and motion. Nontender with no deformity. No lesions are appreciated. Cardiovascular: Regular rate and rhythm with a normal S1 and S2. No gallops, murmurs, or rubs. Normal PMI, no JVD. No pulse deficits. Respiratory: Lungs have equal breath sounds bilaterally, clear to auscultation and percussion. No rales, rhonchi or wheezes noted. No increased work of breathing, no retractions or nasal flaring. Abdomen/GI: Soft, non-tender, with normal bowel sounds. No distension or tympany. No guarding or rebound. No evidence of tenderness throughout. Back: No spinal tenderness. No costovertebral tenderness. Full range of motion. Female : Normal external genitalia. Skin: Warm, dry with normal turgor. Normal color with no rashes, no lesions, and no evidence of cellulitis. MS/ Extremity: Pulses equal, no cyanosis. Neurovascular intact. Full, normal range of motion. Neuro: Awake and alert, GCS 15, oriented to person, place, time, and situation. Cranial nerves II-XII grossly intact. Motor strength 5/5 in all extremities. Sensory grossly intact. Cerebellar exam normal. Normal gait. Psych: Awake, alert, with orientation to person, place and time. Behavior, mood, and affect are within normal limits. Vital Signs: 16:07 BP 153 / 89; Pulse 107; Resp 21; Temp 97.8(TE); Pulse Ox 98% on R/A; Weight 94.8 kg; ss Height 5 ft. 0 in. (152.40 cm); Pain 3/10; 17:00 BP 143 / 86; Pulse 98; Resp 16; Pulse Ox 98% ; bp 18:00 BP 135 / 79; Pulse 87; Resp 14; Pulse Ox 98% ; bp 16:07 Body Mass Index 40.82 (94.80 kg, 152.40 cm) MDM: 16:13 Patient medically screened. [facility] 09/01 06:44 Data reviewed: vital signs, nurses notes, lab test result(s), EKG, radiologic studies, [facility] doppler, plain films. 08/31 16:18 Order name: Basic Metabolic Panel; Complete Time: 17:52 [facility] 08/31 16:18 Order name: CBC with Diff; Complete Time: 17:52 [facility] 08/31 16:18 Order name: LFT's; Complete Time: 17:52 [facility] 08/31 16:18 Order name: Magnesium; Complete Time: 17:52 [facility] 08/31 16:18 Order name: NT PRO-BNP; Complete Time: 17:52 [facility] 08/31 16:18 Order name: PT-INR; Complete Time: 17:52 [facility] 08/31 16:18 Order name: Troponin (emerg Dept Use Only); Complete Time: 17:52 [facility] 08/31 16:18 Order name: XRAY Chest (1 view); Complete Time: 17:52 [facility] 08/31 16:18 Order name: Lipase; Complete Time: 17:52 [facility] 08/31 16:18 Order name: Urine Culture [facility] 08/31 16:18 Order name: CT Head Brain wo Cont; Complete Time: 17:09 [facility] 08/31 16:35 Order name: US Carotid Artery Bilateral; Complete Time: 18:32 [facility] 08/31 16:18 Order name: EKG; Complete Time: 16:19 [facility] 08/31 16:18 Order name: Cardiac monitoring; Complete Time: 17:14 [facility] 08/31 16:18 Order name: EKG - Nurse/Tech; Complete Time: 18:22 [facility] 08/31 16:18 Order name: IV Saline Lock; Complete Time: 17:14 [facility] 08/31 16:18 Order name: Labs collected and sent; Complete Time: 17:14 [facility] 08/31 16:18 Order name: O2 Per Protocol; Complete Time: 17:14 [facility] 08/31 16:18 Order name: O2 Sat Monitoring; Complete Time: 17:14 [facility] 08/31 16:18 Order name: Urine Dipstick-Ancillary (obtain specimen); Complete Time: 18:22 [facility] Administered Medications: 08/31 16:30 Drug: NS 0.9% 1000 ml Route: IV; Rate: 75 ml/hr; Site: left hand; bp 18:43 Follow up: IV Status: Completed infusion; IV Intake: 150ml bp 16:45 Drug: Meclizine 50 mg Route: PO; bp 18:43 Follow up: Response: Marked relief of symptoms bp 17:00 Drug: Zofran 4 mg Route: IVP; Site: left hand; bp 18:43 Follow up: Response: Nausea is decreased bp 17:30 Drug: NS 0.9% 250 ml Route: IV; Rate: bolus; Site: left hand; bp 18:00 Follow up: IV Status: Completed infusion; IV Intake: 250ml bp 17:30 Drug: fentaNYL (PF) 25 mcg Route: IVP; Site: left hand; bp 18:43 Follow up: Response: Pain is decreased bp 17:30 Drug: fentaNYL (PF) 25 mcg Route: IVP; Site: left hand; bp 18:43 Follow up: Response: Pain is decreased bp 17:30 Drug: Tylenol 650 mg Route: PO; bp 18:42 Follow up: Response: No adverse reaction; Pain is decreased bp Disposition: 08/31/18 18:02 Discharged to Home. 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 - Condition is Stable. - Discharge Instructions: Dizziness, Hypertension, Vertigo, Hypertension, Bpia-le-Ofen, How to Take Your Blood Pressure, Mgzw-ll-Lxhj, Vertigo, Ppia-dm-Squc, Dizziness, Zeys-ql-Drxq, Managing Your Hypertension. - Prescriptions for Meclizine 25 mg Oral Tablet - take 1 tablet by ORAL route every 8 hours As needed; 30 tablet. Zofran 4 mg Oral Tablet - take 1 tablet by ORAL route every 12 hours As needed; 20 tablet. - Medication Reconciliation Form, Thank You Letter, Antibiotic Education, Prescription Opioid Use form. - Follow up: Zack Taylor; When: 2 - 3 days; Reason: Recheck today's complaints, Continuance of care, Re-evaluation by your physician. Follow up: Jayson Marie MD; When: 2 - 3 days; Reason: Recheck today's complaints, Continuance of care, Re-evaluation by your physician. - Problem is new. - Symptoms have improved. Signatures: Dispatcher [employer] EDMS Timo Angel MD MD cha Smirch, Shelby, RN RN ss Peltier, Brian, RN RN bp Corrections: (The following items were deleted from the chart) 18:02 18:02 08/31/2018 18:02 Discharged to Home. 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 Condition is Stable. Discharge Instructions: Dizziness, Hypertension, Vertigo, Hypertension, Rkih-hf-Qeze, How to Take Your Blood Pressure, Thch-ly-Utrv, Vertigo, Yoez-my-Zmfc, Dizziness, Tidm-wz-Ukli, Managing Your Hypertension. Prescriptions for Meclizine 25 mg Oral Tablet - take 1 tablet by ORAL route every 8 hours As needed; 30 tablet, Zofran 4 mg Oral Tablet - take 1 tablet by ORAL route every 12 hours As needed; 20 tablet. and Forms are Medication Reconciliation Form, Thank You Letter, Antibiotic Education, Prescription Opioid Use. Follow up: Zack Taylor; When: 2 - 3 days; Reason: Recheck today's complaints, Continuance of care, Re-evaluation by your physician. Problem is new. Symptoms have improved. georgina 18:51 18:02 08/31/2018 18:02 Discharged to Home. 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 Condition is Stable. Discharge Instructions: Dizziness, Hypertension, Vertigo, Hypertension, Ccnx-ui-Ctfg, How to Take Your Blood Pressure, Rtxb-pk-Qdcp, Vertigo, Sbyl-yi-Bzcn, Dizziness, Hgyv-ea-Hszq, Managing Your Hypertension. Prescriptions for Meclizine 25 mg Oral Tablet - take 1 tablet by ORAL route every 8 hours As needed; 30 tablet, Zofran 4 mg Oral Tablet - take 1 tablet by ORAL route every 12 hours As needed; 20 tablet. and Forms are Medication Reconciliation Form, Thank You Letter, Antibiotic Education, Prescription Opioid Use. Follow up: Zack Taylor; When: 2 - 3 days; Reason: Recheck today's complaints, Continuance of care, Re-evaluation by your physician. Follow up: Jayson Marie; When: 2 - 3 days; Reason: Recheck today's complaints, Continuance of care, Re-evaluation by your physician. Problem is new. Symptoms have improved. georgina
--- NOTE | 2018-08-31 18:03 | ER ---
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 Pt is concerned that it may be because of her blood pressure as it was elevated earlier in the day. Transition of care: patient was not received from another setting of care. Onset of symptoms was August 31, 2018. Risk Assessment: Do you want to hurt yourself or someone else? Patient reports no desire to harm self or others. Initial Sepsis Screen: Does the patient meet any 2 criteria? No. Patient's initial sepsis screen is negative. Does the patient have a suspected source of infection? No. Patient's initial sepsis screen is negative. Care prior to arrival: None. 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 - Social history:: Smoking status: Patient/guardian denies using tobacco. - Ebola Screening: : Patient denies exposure to infectious person Patient denies travel to an Ebola-affected area in the 21 days before illness onset. - Family history:: not pertinent. Screenin:30 Abuse screen: Denies threats or abuse. Denies injuries from another. Nutritional bp screening: No deficits noted. Tuberculosis screening: No symptoms or risk factors identified. Fall Risk None identified. Assessment: 16:10 General: Appears in no apparent distress. comfortable, obese, Behavior is calm, bp cooperative, appropriate for age. Pain: Complains of pain in head. Neuro: Level of Consciousness is awake, alert, obeys commands, Oriented to person, place, time, situation, Appropriate for age Reports dizziness. Cardiovascular: No deficits noted. Respiratory: Airway is patent Respiratory effort is even, unlabored, Respiratory pattern is regular, symmetrical. GI: No signs and/or symptoms were reported involving the gastrointestinal system. : No signs and/or symptoms were reported regarding the genitourinary system. EENT: No deficits noted. Derm: No deficits noted. Musculoskeletal: Circulation, motion, and sensation intact. Range of motion: intact in all extremities. 18:45 Reassessment: PT D/C HOME AMBULATORY WITH FAMILY, STEADY GAIT, DX WITH HTN AND VERTIGO. bp Vital Signs: 16:07 BP 153 / 89; Pulse 107; Resp 21; Temp 97.8(TE); Pulse Ox 98% on R/A; Weight 94.8 kg; ss Height 5 ft. 0 in. (152.40 cm); Pain 3/10; 17:00 BP 143 / 86; Pulse 98; Resp 16; Pulse Ox 98% ; bp 18:00 BP 135 / 79; Pulse 87; Resp 14; Pulse Ox 98% ; bp 16:07 Body Mass Index 40.82 (94.80 kg, 152.40 cm) ED Course: 15:57 Patient arrived in ED. as 15:58 Zack Taylor MD is Private Physician. as 16:07 Arm band placed on right wrist. ss 16:09 Triage completed. ss 16:13 Timo Angel MD is Attending Physician. georgina 16:30 Patient has correct armband on for positive identification. Bed in low position. Call bp light in reach. Side rails up X2. Adult w/ patient. 16:30 No provider procedures requiring assistance completed. IV discontinued, intact, bp bleeding controlled, No redness/swelling at site. Pressure dressing applied. 16:48 CT Head Brain wo Cont In Process Unspecified. EDMS 16:52 CT completed. Patient tolerated procedure well. Patient moved back from CT. bq 17:00 XRAY Chest (1 view) In Process Unspecified. EDMS 17:02 Missed attempt(s): 22 gauge in left forearm. Bleeding controlled, band aid applied, aa5 catheter tip intact. 17:05 Initial lab(s) drawn, by me, sent to lab. Inserted saline lock: 22 gauge in left hand, aa5 using aseptic technique. Blood collected. 17:30 Ultrasound completed. Patient tolerated well. sg3 17:34 US Carotid Artery Bilateral In Process Unspecified. EDMS 18:01 Zack Taylor MD is Referral Physician. [facility] 18:02 Jayson Marie MD is Referral Physician. georgina Administered Medications: 16:30 Drug: NS 0.9% 1000 ml Route: IV; Rate: 75 ml/hr; Site: left hand; bp 18:43 Follow up: IV Status: Completed infusion; IV Intake: 150ml bp 16:45 Drug: Meclizine 50 mg Route: PO; bp 18:43 Follow up: Response: Marked relief of symptoms bp 17:00 Drug: Zofran 4 mg Route: IVP; Site: left hand; bp 18:43 Follow up: Response: Nausea is decreased bp 17:30 Drug: NS 0.9% 250 ml Route: IV; Rate: bolus; Site: left hand; bp 18:00 Follow up: IV Status: Completed infusion; IV Intake: 250ml bp 17:30 Drug: fentaNYL (PF) 25 mcg Route: IVP; Site: left hand; bp 18:43 Follow up: Response: Pain is decreased bp 17:30 Drug: fentaNYL (PF) 25 mcg Route: IVP; Site: left hand; bp 18:43 Follow up: Response: Pain is decreased bp 17:30 Drug: Tylenol 650 mg Route: PO; bp 18:42 Follow up: Response: No adverse reaction; Pain is decreased bp Intake: 18:00 IV: 250ml; Total: 250ml. bp 18:43 IV: 150ml; Total: 400ml. bp Outcome: 18:02 Discharge ordered by . georgina 18:50 Discharged to home ambulatory, with family. bp 18:50 Condition: stable 18:50 Discharge instructions given to patient, Instructed on discharge instructions, follow up and referral plans. medication usage, Demonstrated understanding of instructions, follow-up care, medications, Prescriptions given X 2. 18:51 Patient left the ED. bp Signatures: Dispatcher [employer] EDNJ Timo Angel MD MD cha Quilty, Betty bq Martinez, Amelia as Calderon, Audri, RN RN aa5 Sharon Byrnes RN RN ss Peltier, Brian, RN RN bp Godinez, Sarah sg3 Corrections: (The following items were deleted from the chart) 19:03 16:25 Akua Mccormick, RN is Primary Nurse. aa5 aa5
--- NOTE | 2018-08-31 18:08 | RAD REPORT ---
EXAM DESCRIPTION: - CP - 08/31/2018 5:33 pm CLINICAL HISTORY: DIZZINESS TIA/CVA, syncope COMPARISON: No comparisons TECHNIQUE: Real-time sonographic evaluation of both carotid systems was performed. Doppler interroga tion was performed with waveform tracing bilaterally. FINDINGS: Normal high resistance waveforms are noted in both external carotid arteries. The common c arotid arteries and internal carotid arteries show normal low resistance waveforms. No significant carotid plaquing seen. Peak systolic and end diastolic velocity values and the ICA/CCA ratios are in the non-hemodynamically significant range. Antegrade flow seen in both vertebral arteries. IMPRESSION: No significant atherosclerotic changes noted. No evidence of a hemodynamically significant stenosis.
[2018-08-31 19:43] VITALS: TEMP 97.8; O2SAT 98
[2018-08-31 19:46] VITALS: BP 135/79
--- NOTE | 2018-09-01 07:12 | EKG ---
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
== END 2018-08-31 18:51 | disposition home or self-care (01) ==
LOC: ER 15:56
DX: I10 Essential (primary) hypertension (principal); H82.3 Vertiginous syndromes in diseases classified elsewhere, bilateral; Z88.7 Allergy status to serum and vaccine; Z88.8 Allergy status to other drugs, medicaments and biological substances
CPT/HCPCS: 36415; 70450; 71045; 80048; 80076; 83690; 83735; 83880; 84484; 85025; 85610; 87086; 87088; 93005; 93880; 96361; 96365; 96375; 99284; J2405; J3010; J7030

== ENCOUNTER 2019-08-21 16:41 | Emergency (ER) | payer MEDICAID ==
--- OUTSIDE RECORDS SUMMARY | 2019-08-21 16:43 | XMS REPORT ---
:1965 [facility] Address [address] [place] [address] Dr. Zhang[address] [place] [address] Care Team Providers Name Role Phone Unavailable Unavailable Unavailable Problems This patient has no known problems. Allergies, Adverse Reactions, Alerts This patient has no known allergies or adverse reactions. Medications This patient has no known medications.
--- OUTSIDE RECORDS SUMMARY | 2019-08-21 16:43 | XMS REPORT | Summary of Care ---
:1965 Author Organization [facility] Address [address] [place] [id number] Care Team Providers Name Role Phone Zack Taylor Primary Care Provider Reason for Visit Reason Comments Refill Request Encounter Details Date Type Department Care Team Description 04/03/[address] [facility] Endocrinology- Thanh Garsia MD Refill Request [address] Professional Office [address] [phone] [place] [address] [address] [place] [address] Allergies Active Allergy Reactions Severity Noted Date Comments Exenatide Microspheres Rash, Swelling 08/24/2015 Insulin Glargine Dizziness 10/16/2016 Tetanus And Diphtheria Toxoids, Adsorbed, Swelling 02/01/2015 Adult documented as of this encounter (statuses as of 04/21/2019) Medications Medication Sig Dispensed Refills Start Date End Date Status atenolol (TENORMIN) Take 50 mg by 0 Active 50 mg tablet mouth daily. lisinopril Take by mouth 0 Active (PRINIVIL,ZESTRIL) daily. 20 mg tablet ALPRAZolam (XANAX) Take 1 mg by 0 Active 1 mg tablet mouth 3 (three) times daily. ESOMEPRAZOLE Take by 0 Active MAGNESIUM (NEXIUM mouth. ORAL) ferrous sulfate 325 3 07/26/2015 Active mg (65 mg iron) tablet vortioxetine Take by 0 Active (BRINTELLIX) 10 mg mouth. Tab butalbital-acetamin Take 1 tablet 28 tablet 0 03/20/2016 Active ophen-caff (ESGIC) by mouth every 50-325-40 mg tablet 6 (six) hours as needed for Headache. lancets (FREESTYLE Use as 300 Each 1 07/24/2016 Active LANCETS) 28 gauge directed, TID, Misc Dx:E11.9 triamcinolone 0 09/03/2016 Active acetonide 0.1 % cream mirabegron Take 1 tablet 30 tablet 2 04/23/2018 Active (MYRBETRIQ) 50 mg by mouth tablet daily. oxybutynin chloride Take 1 tablet 60 tablet 2 04/24/2018 Active 5 mg tablet by mouth 2 (two) times daily. gabapentin 300 mg Take 1 capsule 90 capsule 1 12/01/2018 Active capsuleIndications: by mouth 3 Neuropathy (three) times daily. pioglitazone 15 mg Take 1 tablet 90 tablet 3 01/09/2019 Active tabletIndications: by mouth Type 2 diabetes daily. mellitus, uncontrolled, with neuropathy Insulin [place], Use as 100 Each 3 02/24/2019 Active Disposable, (SEUN directed,daily PEN NEEDLE) 32 DX:E11.9 gauge x 5/32" NdleIndications: Type 2 diabetes mellitus without complication, with long-term current use of insulin Blood-Glucose Meter Use as 1 Each 0 04/03/2019 Active (TRUE METRIX directed daily GLUCOSE METER) DX: E11.9 MiscIndications: Type 2 diabetes mellitus without complication, with long-term current use of insulin blood sugar Use as 300 Strip 1 04/03/2019 Active diagnostic (BLOOD directed, TID, GLUCOSE TEST) strip DX:E11.9 blood sugar Use as 300 Strip 1 08/01/2016 Discontinued diagnostic (BLOOD directed, TID, 9 GLUCOSE TEST) strip DX:E11.9 Blood-Glucose Meter Use as 1 Each 1 12/09/2017 Discontinued (TRUE METRIX directed 9 GLUCOSE METER) MiscIndications: Type 2 diabetes mellitus without complication, with long-term current use of insulin metFORMIN 500 mg Take 2 tablets 360 tablet 1 12/08/2018 Discontinued tabletIndications: by mouth 2 9 Type 2 diabetes (two) times mellitus, daily with uncontrolled, with meals. neuropathy TRESIBA FLEXTOUCH inject 56 30 mL 1 01/06/2019 Discontinued U-200 200 unit/mL Units under 9 (3 mL) the skin InPnIndications: daily. 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 Type 2 diabetes mellitus without complications 02/02/2015 Overview: ICD10 Diagnosis 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 Generalized anxiety disorder 02/02/2015 Depression 02/02/2015 Morbid obesity 02/02/2015 documented as of this encounter (statuses as of 04/21/2019) Resolved Problems Problem Noted Date Resolved Date Screening for STD (sexually transmitted disease) 02/02/2015 06/04/2017 Encounter for routine gynecological examination 02/02/2015 06/04/2017 Overview: ICD10 Diagnosis 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 documented as of this encounter Last Filed Vital Signs Not on filedocumented in this encounter Plan of Treatment Date Type Specialty Care Team Description 07/14/2019 Office Visit Endocrinology Diabetes & GarsiaThanh MD Metabolism [address] [place], [place] [id number] Health Maintenance Due Date Last Done Comments HEPATITIS C (HCV) SCREEN 1965 PNEUMOCOCCAL 0-64 YEARS COMBINED 1969 SERIES (1 of 1 - PPSV23) EYE EXAM 1973 MAMMOGRAM 2003 DTaP,Tdap,and Td Vaccines (1 - 02/02/2007 02/01/2007 Tdap) COLONOSCOPY 2013 Zoster Recombinant Vaccine 2013 (SHINGRIX) (1 of 2) PAP SMEAR 02/01/2018 02/01/2015 INFLUENZA VACCINE 05/24/2019 HgA1C 10/08/2019 04/07/2019, 01/06/2019, 10/07/2018, Additional history exists CREATININE (SERUM) 01/07/2020 01/06/2019, 04/06/2018, 03/20/2018, Additional history exists FOOT EXAM 01/07/2020 01/06/2019, 01/06/2019, 10/07/2018, Additional history exists LDL-C 01/07/2020 01/06/2019, 03/24/2018, 10/30/2016 URINE MICROALBUMIN 01/07/2020 01/06/2019, 10/30/2016 documented as of this encounter Results Not on filedocumented in this encounter Visit Diagnoses Diagnosis Type 2 diabetes mellitus without complication, with long-term current use of insulin documented in this encounter Insurance Payer Benefit Plan / Subscriber ID Effective Phone Address Type Group Dates CAMILA JENSEN xxxxxxxxx 2011-[place] [place] [id number] MANAGED MEDICAID [place], [place] documented as of this encounter Advance Directives Name Relationship Healthcare Agent Communication Relationship Jerri Hoyos Child Primary healthcare agent
--- OUTSIDE RECORDS SUMMARY | 2019-08-21 16:44 | XMS REPORT | Summary of Care ---
:1965 Author Organization [facility] Address [address] [place] [address] Care Team Providers Name Role Phone Zack Taylor Primary Care Provider Reason for Visit Reason Comments Notification Encounter Details Date Type Department Care Team Description 04/27/2019 Telephone [facility] Endocrinology- Thanh Garsia MD Notification [address] Professional Office [address] [phone] [place] [address] Dr. [address] [place] [address] Allergies Active Allergy Reactions Severity Noted Date Comments Exenatide Microspheres Rash, Swelling 08/24/2015 Insulin Glargine Dizziness 10/16/2016 Tetanus And Diphtheria Toxoids, Adsorbed, Swelling 02/01/2015 Adult documented as of this encounter (statuses as of 04/30/2019) Medications Medication Sig Dispensed Refills Start Date End Date Status atenolol (TENORMIN) 50 Take 50 mg by 0 Active mg tablet mouth daily. lisinopril Take by mouth 0 Active (PRINIVIL,ZESTRIL) 20 daily. mg tablet ALPRAZolam (XANAX) 1 Take 1 mg by 0 Active mg tablet mouth 3 (three) times daily. ESOMEPRAZOLE MAGNESIUM Take by mouth. 0 Active (NEXIUM ORAL) ferrous sulfate 325 mg 3 07/26/2015 Active (65 mg iron) tablet vortioxetine Take by mouth. 0 Active (BRINTELLIX) 10 mg Tab butalbital-acetaminoph Take 1 tablet by 28 tablet 0 03/20/2016 Active en-caff (ESGIC) mouth every 6 50-325-40 mg tablet (six) hours as needed for Headache. lancets (FREESTYLE Use as directed, 300 Each 1 07/24/2016 Active LANCETS) 28 gauge Misc TID, Dx:E11.9 triamcinolone 0 09/03/2016 Active acetonide 0.1 % cream mirabegron (MYRBETRIQ) Take 1 tablet by 30 tablet 2 04/23/2018 Active 50 mg tablet mouth daily. oxybutynin chloride 5 Take 1 tablet by 60 tablet 2 04/24/2018 Active mg tablet mouth 2 (two) times daily. gabapentin 300 mg Take 1 capsule by 90 capsule 1 12/01/2018 Active capsuleIndications: mouth 3 (three) Neuropathy times daily. pioglitazone 15 mg Take 1 tablet by 90 tablet 3 01/09/2019 Active tabletIndications: mouth daily. Type 2 diabetes mellitus, uncontrolled, with neuropathy Insulin [place], Use as 100 Each 3 02/24/2019 Active Disposable, (SEUN PEN directed,daily NEEDLE) 32 gauge x DX:E11.9 " NdleIndications: Type 2 diabetes mellitus without complication, with long-term current use of insulin Blood-Glucose Meter Use as directed 1 Each 0 04/03/2019 Active (TRUE METRIX GLUCOSE daily DX: E11.9 METER) MiscIndications: Type 2 diabetes mellitus without complication, with long-term current use of insulin blood sugar diagnostic Use as directed, 300 Strip 1 04/03/2019 Active (BLOOD GLUCOSE TEST) TID, DX:E11.9 strip metFORMIN 500 mg Take 2 tablets by 360 tablet 1 04/07/2019 Active tabletIndications: mouth 2 (two) Type 2 diabetes times daily with mellitus, meals. uncontrolled, with neuropathy insulin degludec inject 56 Units 30 mL 1 04/07/2019 Active (TRESIBA FLEXTOUCH under the skin U-200) 200 unit/mL (3 daily. mL) InPnIndications: Type 2 diabetes mellitus, uncontrolled, with neuropathy SITagliptin 100 mg Take 1 tablet by 30 tablet 3 04/07/2019 Active tabletIndications: mouth daily. 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 Type 2 diabetes mellitus without complications 02/02/2015 Overview: ICD10 Diagnosis 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 Generalized anxiety disorder 02/02/2015 Depression 02/02/2015 Morbid obesity 02/02/2015 documented as of this encounter (statuses as of 04/30/2019) Resolved Problems Problem Noted Date Resolved Date Screening for STD (sexually transmitted disease) 02/02/2015 06/04/2017 Encounter for routine gynecological examination 02/02/2015 06/04/2017 Overview: ICD10 Diagnosis 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 BV (bacterial vaginosis) 02/02/2015 06/04/2017 documented as of this encounter (statuses as of 04/30/2019) Immunizations Name Administration Dates Next Due Td [...] Description 07/14/2019 Office Visit Endocrinology Diabetes & Thanh Garsia MD Metabolism [address] [place], [place] [address] Health Maintenance Due Date Last Done Comments [...] Results Not on filedocumented in this encounter Insurance Payer Benefit Plan / Subscriber ID Effective Phone Address Type Group Dates CAMILA JENSEN xxxxxxxxx 2011-[place] [id number] MA[place]GED MEDICA[place] documented as of this encounter Advance Directives Name Relationship Healthcare Agent Communication Relationship Jerri Hoyos Child Primary healthcare agent
--- OUTSIDE RECORDS SUMMARY | 2019-08-21 16:44 | XMS REPORT | Summary of Care ---
:1965 Author Organization [facility] Address [address] [place] [address] Care Team Providers Name Role Phone Zack Taylor Primary Care Provider Reason for Referral (Routine) Status Reason Specialty Diagnoses / Referred By Referred To Procedures Contact Contact New Request Obstetrics & Diagnoses Postmenopausal bleeding Dedra Candelario Gynecology Procedures CONSULT/REFERRAL PREFORM PLATE MAKER (owner professional engineer clinic) LUCIANO BalbuenaP [address] [place] [id number] Radiology Services (Routine) Status Reason Specialty Diagnoses / Referred By Referred To Procedures Contact Contact Authorized Diagnostic Diagnoses Postmenopausal bleeding Dedra Candelario Radiology Procedures US PELVIS COMPLETE WITH TRANSVAGINAL LUCIANO BalbuenaP [address] [facility] [[email or web address] [place] [address] Reason for Visit Reason Comments Vaginal Bleeding Encounter Details Date Type Department Care Team Description 05/12/2019 Office Visit [facility]- Dedra Candelario Postmenopausal bleeding [place] ASSISTANT PRESSMAN (Primary Dx) [address] [place] [address] [place] [address] [phone] Allergies Active Allergy Reactions Severity Noted Date Comments Exenatide Microspheres Rash, Swelling 08/24/2015 Insulin Glargine Dizziness 10/16/2016 Tetanus And Diphtheria Toxoids, Adsorbed, Swelling 02/01/2015 Adult documented as of this encounter (statuses as of 05/12/2019) Medications Medication Sig Dispensed Refills Start Date [...] 2 diabetes mellitus, uncontrolled, with neuropathy Insulin [place], Use as 100 Each 3 02/24/2019 Active [...] as of this encounter (statuses as of 05/12/2019) Active Problems Problem Noted Date Corpus luteum cyst or hematoma 04/17/2018 Overview: 3.3 L adnexal cyst 04/18/18 Irregular menstrual cycle 06/04/2017 Breast tenderness in female 06/04/2017 Uncontrolled type 2 diabetes mellitus 08/24/2015 Dyslipidemia 08/24/2015 Surveillance of previously prescribed contraceptive pill 02/02/2015 History of tubal ligation 02/02/2015 Essential hypertension 02/02/2015 Overview: ICD10 Diagnosis Term Locomotive Oiler Utility Type 2 diabetes mellitus without complications 02/02/2015 Overview: ICD10 Diagnosis Term Locomotive Oiler Utility Generalized anxiety disorder 02/02/2015 Depression 02/02/2015 Morbid obesity 02/02/2015 documented as of this encounter (statuses as of 05/12/2019) Resolved Problems Problem Noted Date Resolved Date Screening for STD (sexually transmitted disease) 02/02/2015 06/04/2017 Encounter for routine gynecological examination 02/02/2015 06/04/2017 Overview: ICD10 Diagnosis Term Locomotive Oiler Utility BV (bacterial vaginosis) 02/02/2015 06/04/2017 documented as of this encounter (statuses as of 05/12/2019) Immunizations Name Administration Dates Next Due Td [...] of this encounter Last Filed Vital Signs Vital Sign Reading Time Taken Comments Blood Pressure 93/65 05/12/2019 1:40 PM CDT Pulse 76 05/12/2019 1:40 PM CDT Temperature 36.8 C (98.2 F) 05/12/2019 1:40 PM CDT Respiratory Rate 16 05/12/2019 1:40 PM CDT Oxygen Saturation - - Inhaled Oxygen Concentration - - Weight 97.5 kg (215 lb) 05/12/2019 1:40 PM CDT Height 152.4 cm (5') 05/12/2019 1:40 PM CDT Body Mass Index 41.99 05/12/2019 1:40 PM CDT documented in this encounter Progress Notes Dedra Candelario, ASSISTANT PRESSMAN - 05/12/2019 1:30 PM CDT Chief complaint: Chief Complaint Patient presents with Vaginal Bleeding HPI Stephanie Noel is a 54 year old here for postmenopausal bleeding. Pt reports she went throughmenopause and had last menses in 2016. She had not had any vaginal bleeding until last Saturday/saturday. She describes the vaginal bleeding like a period and she had one big gush of blood at one point. She denies any clots or pelvic pain. Denies fever. Pt has multiple comorbidities managed by PCP who she sees regularly. Reports she had a mammogram within the last year. Pap smear in 2014 NILM and HPV negative. Histories OB History Para Term AB Living 6 5 1 5 SAB TAB Ectopic Multiple Live Births 1 # Outcome Date GA Lbr Silvano/2nd Weight Sex Delivery Anes PTL Lv 6 Para 5 Para 4 Para 3 Para 2 Para 1 SAB Past Medical History: Diagnosis Date Anemia Anxiety BV (bacterial vaginosis) 02/02/2015 Depression Diabetes mellitus GERD (gastroesophageal reflux disease) History of shingles Hypertension Irregular menstrual cycle 06/04/2017 Panic attacks Family History Problem Relation Age of Onset Arthritis Mother Asthma Mother Diabetes Mother Heart Mother High cholesterol Mother Hypertension Mother Diabetes Father Heart Father High cholesterol Father Hypertension Father defects NoFHx Breast Cancer NoFHx Uterine Cancer NoFHx Cancer NoFHx Ovarian Cancer NoFHx Colon Cancer NoFHx Depression NoFHx Genetic NoFHx Mental retardation NoFHx Neurological NoFHx Osteoporosis NoFHx Psychiatry NoFHx Other - see comments NoFHx Family Status Relation Name Status Mo (Not Specified) Fa (Not Specified) NoFHx (Not Specified) Past Surgical History: Procedure Laterality Date CHOLECYSTECTOMY [place] ANESTH,SURGERY OF SHOULDER TUBAL LIGATION Social History Socioeconomic History Marital status: Single Spouse name: Not on file Number of children: 3 Years of education: Not on file Highest education level: Not on file Occupational History Occupation: none Social Needs Financial resource strain: Not on file Food insecurity: Worry: Not on file Inability: Not on file Transportation needs: Medical: Not on file Non-medical: Not on file Tobacco Use Smoking status: Never Smoker Smokeless tobacco: Never Used Substance and Sexual Activity Alcohol use: No Alcohol/week: 0.0 oz Drug use: No Sexual activity: Yes Partners: Male control/protection: Surgical Lifestyle Physical activity: Days per week: Not on file Minutes per session: Not on file Stress: Not on file Relationships Social connections: Talks on phone: Not on file Gets together: Not on file Attends restoration service: Not on file Active member of club or organization: Not on file Attends meetings of clubs or organizations: Not on file Relationship status: Not on file Intimate partner violence: Fear of current or ex partner: Not on file Emotionally abused: Not on file Physically abused: Not on file Forced sexual activity: Not on file Other Topics Concern Not on file Social History Narrative No domestic violence or abuse Social History Substance and Sexual Activity Sexual Activity Yes Partners: Male control/protection: Surgical Labs No new labs and I have reviewed the patient's labs. Radiology Radiology pending. Allergies Stephanie is allergic to bydureon [exenatide microspheres]; lantus [insulin glargine ]; and tetanus and diphtheria toxoids, adsorbed, adult. Medications Stephanie has a current medication list which includes the following prescription(s) : insulin degludec, metformin, sitagliptin, blood sugar diagnostic, blood- glucose meter, insulin needles (disposable), pioglitazone, gabapentin, oxybutynin chloride, mirabegron, triamcinolone acetonide, lancets, butalbital- acetaminophen-caff, ferrous sulfate, vortioxetine, alprazolam, atenolol, esomeprazole magnesium, andlisinopril. Review of Systems Constitutional: Negative. Gastrointestinal: Negative. Genitourinary: Positive for vaginal bleeding. Negative for dysuria, hematuria, flank pain, vaginal discharge, genital sores and pelvic pain. Neurological: Negative. Psychiatric/Behavioral: Negative. BP 93/65 | Pulse 76 | Temp 36.8 C (98.2 F) | Resp 16 | Ht 5' (1.524 m) | Wt 215 lb (97.5 kg) | LMP 05/09/2019 (Approximate) | BMI 41.99 kg/m Pregravid BMI: Could not be calculated Physical Exam Vitals reviewed. Constitutional: She is oriented to person, place, and time. She appears well- developed and well-nourished. Pulmonary/Chest: Normal inspiratory effort. Abdominal: Abdomen is soft. Neuro/Psychiatric: She has a normal mood and affect. She is oriented to person, place, and time. Skin: Skin normal. Genitourinary Comments: Chaperoned by: June Mathias MA External genitalia: Normal external genitalia appropriate for age. Vagina:No lesion inspected. Abnormal estrogen effect. Normal support. Scant amount of light brown/clear discharge. No active bleeding. Cervix: Normal cervix. No lesion. No tenderness and no discharge present. Uterus: Bimanual exam limited by body habitus Assessment/Plan 1. Postmenopausal bleeding Will order pelvic ultrasound and refer to owner professional engineer clinic for EMB and further work up and management ER warnings for heavy bleeding or severe pain - US PELVIS COMPLETE WITH TRANSVAGINAL; Future - CONSULT/REFERRAL PREFORM PLATE MAKER (owner professional engineer clinic) - GC & CHLAMYDIA AMPLIFIED ASSAY Return to clinic in 8 weeks. Discussed treatment options. Reviewed patient instructions and provided printed copy. This visit did not involve counseling and coordination that comprised more than 50% of the visit time. documented in this encounter Plan of Treatment Date Type Specialty Care Team Description 05/14/2019 Appointment Radiology Dedra Candelario FNP [address] [place] [address] [phone] 07/13/2019 Office Visit OB Satellites Dedra Candelario FNP [address] [place] [address] [phone] 07/14/2019 Office Visit Endocrinology Diabetes & Thanh Garsia MD Metabolism [address] [place], [place] [id number] Name Type Priority Associated Diagnoses Date/Time GC & CHLAMYDIA AMPLIFIED LAB Routine Postmenopausal bleeding 05/12/2019 2: 06 PM CDT ASSAY Name Type Priority Associated Diagnoses Order Schedule US PELVIS COMPLETE WITH IMAGING Routine Postmenopausal bleeding Expected: TRANSVAGINAL 05/12/2019, Expires: 05/12/2020 Health Maintenance Due Date Last Done Comments HEPATITIS C (HCV) SCREEN 1965 PNEUMOCOCCAL 0-64 YEARS COMBINED 1969 SERIES (1 of 1 - PPSV23) EYE EXAM 1973 MAMMOGRAM 2003 DTaP,Tdap,and Td Vaccines (1 - 02/02/2007 02/01/2007 Tdap) COLONOSCOPY 2013 Zoster Recombinant Vaccine 2013 (SHINGRIX) (1 of 2) INFLUENZA VACCINE (#1) 2019 HgA1C 10/08/2019 04/07/2019, 01/06/2019, 10/07/2018, Additional history exists CREATININE (SERUM) 01/07/2020 01/06/2019, 04/06/2018, 03/20/2018, Additional history exists FOOT EXAM 01/07/2020 01/06/2019, 01/06/2019, 10/07/2018, Additional history exists LDL-C 01/07/2020 01/06/2019, 03/24/2018, 10/30/2016 URINE MICROALBUMIN 01/07/2020 01/06/2019, 10/30/2016 PAP SMEAR 02/02/2020 02/01/2015 documented as of this encounter Results Not on filedocumented in this encounter Visit Diagnoses Diagnosis Postmenopausal bleeding - Primary documented in this encounter Insurance Payer Benefit Plan / Subscriber ID Effective Phone Address Type Group Dates CAMILA JENSEN xxxxxxxxx 2011-Sabine [place] [place] [id number] MANAGED MEDICAID [place], [place] documented as of this encounter Advance Directives Name Relationship Healthcare Agent Communication Relationship Jerri Hoyos Child Primary healthcare agent
--- OUTSIDE RECORDS SUMMARY | 2019-08-21 16:44 | XMS REPORT | Summary of Care ---
:1965 Author Organization [facility] Address [address] [place] [address] Care Team Providers Name Role Phone Zack Taylor Primary Care Provider Encounter Details Date Type Department Care Team Description 05/12/2019 Orders Only [facility] Doctor Unassigned, No [address] [facility] [place] [address] [address] [place] [id number] Allergies Active Allergy Reactions Severity Noted Date [...] 2 diabetes mellitus, uncontrolled, with neuropathy Insulin [place], Use as 100 Each 3 02/24/2019 Active [...] Essential hypertension 02/02/2015 Overview: ICD10 Diagnosis Term Senior It Recruiter Utility Type 2 diabetes mellitus without complications 02/02/2015 Overview: ICD10 Diagnosis Term Senior It Recruiter Utility Generalized anxiety disorder 02/02/2015 Depression 02/02/2015 Morbid obesity 02/02/2015 documented as of this encounter (statuses as of 05/12/2019) Resolved Problems Problem Noted Date Resolved Date Screening for STD (sexually transmitted disease) 02/02/2015 06/04/2017 Encounter for routine gynecological examination 02/02/2015 06/04/2017 Overview: ICD10 Diagnosis Term Senior It Recruiter Utility BV (bacterial vaginosis) 02/02/2015 06/04/2017 documented [...] Treatment Date Type Specialty Care Team Description 05/12/2019 Office Visit OB Satellites Dedra Candelario, NETWORK ENGINEERING ADVISOR [address] [place] [address] [phone] 07/14/2019 Office Visit Endocrinology Diabetes & Thanh Garsia MD Metabolism [facility] [place], [place] [id number] Health Maintenance Due Date Last Done Comments HEPATITIS C (HCV) SCREEN 1965 PNEUMOCOCCAL 0-64 YEARS COMBINED 1969 SERIES (1 of 1 - PPSV23) EYE EXAM 1973 MAMMOGRAM 2003 DTaP,Tdap,and Td Vaccines (1 - 02/02/2007 02/01/2007 Tdap) COLONOSCOPY 2013 Zoster Recombinant Vaccine 2013 (SHINGRIX) (1 of 2) PAP SMEAR 02/01/2018 02/01/2015 INFLUENZA VACCINE (#1) 2019 HgA1C 10/08/2019 04/07/2019, 01/06/2019, 10/07/2018, Additional history exists CREATININE (SERUM) 01/07/2020 01/06/2019, 04/06/2018, 03/20/2018, Additional history exists FOOT EXAM 01/07/2020 01/06/2019, 01/06/2019, 10/07/2018, Additional history exists LDL-C 01/07/2020 01/06/2019, 03/24/2018, 10/30/2016 URINE MICROALBUMIN 01/07/2020 01/06/2019, 10/30/2016 documented as of this encounter Procedures Procedure Name Priority Date/Time Associated Diagnosis Comments CONSENT/REFUSAL FOR Routine 05/12/2019 12:58 PM DIAGNOSIS AND TREATMENT CDT ASSIGNMENT OF BENEFITS Routine 05/12/2019 12:57 PM CDT documented in this encounter Results Not on filedocumented in this encounter Insurance Payer Benefit Plan / Subscriber ID Effective Phone Address Type Group Dates CAMILA JENSEN xxxxxxxxx 2011-Sabine [place] [id number] MANAGED MEDICAID [place], [place] documented as of this encounter Advance Directives Name Relationship Healthcare Agent Communication Relationship Jerri Hoyos Child Primary healthcare agent
--- OUTSIDE RECORDS SUMMARY | 2019-08-21 16:44 | XMS REPORT | Summary of Care ---
:1965 Author Organization [facility] Address [address] [place] [address] Care Team Providers Name Role Phone Zack Taylor Primary Care Provider Reason for Referral (Routine) Status Reason Specialty Diagnoses / Referred By Referred To Procedures Contact Contact New Request Obstetrics & Diagnoses Postmenopausal bleeding Dedra Candelario Gynecology Procedures CONSULT/REFERRAL SAW RUNNER (reference data expert clinic) LUCIANO BalbuenaP [address] [place] [address] Radiology Services (Routine) Status Reason Specialty Diagnoses / Referred By Referred To Procedures Contact Contact Authorized Diagnostic Diagnoses Postmenopausal bleeding Dedra Candelario Radiology Procedures US PELVIS COMPLETE WITH TRANSVAGINAL LUCIANO BalbuenaP [address] [facility] [place] [address] Reason for Visit Reason Comments Vaginal Bleeding Encounter Details Date Type Department Care Team Description 05/12/2019 Office Visit [facility] RMCHP- Dedra Candelario Postmenopausal bleeding [place] CHAIRMAN (Primary Dx) [address] [place] [address] [place] [address] [phone] Allergies Active Allergy Reactions Severity Noted Date [...] 2 diabetes mellitus, uncontrolled, with neuropathy Insulin [place], Use as 100 Each 3 02/24/2019 Active [...] Essential hypertension 02/02/2015 Overview: ICD10 Diagnosis Term Mold Stripper Utility Type 2 diabetes mellitus without complications 02/02/2015 Overview: ICD10 Diagnosis Term Mold Stripper Utility Generalized anxiety disorder 02/02/2015 Depression 02/02/2015 Morbid obesity 02/02/2015 documented as of this encounter (statuses as of 05/12/2019) Resolved Problems Problem Noted Date Resolved Date Screening for STD (sexually transmitted disease) 02/02/2015 06/04/2017 Encounter for routine gynecological examination 02/02/2015 06/04/2017 Overview: ICD10 Diagnosis Term Mold Stripper Utility BV (bacterial vaginosis) 02/02/2015 06/04/2017 documented [...] in this encounter Progress Notes Dedra Candelario, CHAIRMAN - 05/12/2019 1:30 PM CDT Chief complaint: [...] Past Surgical History: Procedure Laterality Date CHOLECYSTECTOMY [place] ANESTH,SURGERY OF SHOULDER TUBAL LIGATION Social History [...] file Gets together: Not on file Attends shinto service: Not on file Active member of [...] Will order pelvic ultrasound and refer to reference data expert clinic for EMB and further work up and management ER warnings for heavy bleeding or severe pain - US PELVIS COMPLETE WITH TRANSVAGINAL; Future - CONSULT/REFERRAL SAW RUNNER (reference data expert clinic) - GC & CHLAMYDIA AMPLIFIED ASSAY Return to clinic in 8 weeks. Discussed treatment options. Reviewed patient instructions and provided printed copy. This visit did not involve counseling and coordination that comprised more than 50% of the visit time. documented in this encounter Plan of Treatment Date Type Specialty Care Team Description 05/14/2019 Appointment Radiology Dedra Candelario FNP [address] [place] [address] [phone] 07/13/2019 Office Visit OB Satellites Dedra Candelario FNP [address] [place] [address] [phone] 07/14/2019 Office Visit Endocrinology Diabetes & Thanh Garsia MD Metabolism [address] [place], [place] [address] Name Type Priority Associated Diagnoses Date/Time GC [...] [place] B[address] [place] [id number] MA[place]ED MEDICAID [place] documented as of this encounter Advance Directives Name Relationship Healthcare Agent Communication Relationship Jerri Hoyos Child Primary healthcare agent
--- OUTSIDE RECORDS SUMMARY | 2019-08-21 16:45 | XMS REPORT | Summary of Care ---
:1965 Author Organization [facility] Address [address] [place] [address] Care Team Providers Name Role Phone Zack Taylor Primary Care Provider Reason for Visit Reason Comments Rx Concern/Question Encounter Details Date Type Department Care Team Description 05/15/2019 Telephone [facility] Courtney Westbrook FNP Rx Concern/Question [address], [address] [facility] floor [phone] [place] [address] Allergies Active Allergy Reactions Severity Noted Date Comments Exenatide Microspheres Rash, Swelling 08/24/2015 Insulin Glargine Dizziness 10/16/2016 Tetanus And Diphtheria Toxoids, Adsorbed, Swelling 02/01/2015 Adult documented as of this encounter (statuses as of 05/15/2019) Medications Medication Sig Dispensed Refills Start Date [...] 2 diabetes mellitus, uncontrolled, with neuropathy Insulin [place], Use as 100 Each 3 02/24/2019 Active [...] as of this encounter (statuses as of 05/15/2019) Active Problems Problem Noted Date Corpus luteum cyst or hematoma 04/17/2018 Overview: 3.3 L adnexal cyst 04/18/18 Irregular menstrual cycle 06/04/2017 Breast tenderness in female 06/04/2017 Uncontrolled type 2 diabetes mellitus 08/24/2015 Dyslipidemia 08/24/2015 Surveillance of previously prescribed contraceptive pill 02/02/2015 History of tubal ligation 02/02/2015 Essential hypertension 02/02/2015 Overview: ICD10 Diagnosis Term Behavioral Therapy Coordinator Utility Type 2 diabetes mellitus without complications 02/02/2015 Overview: ICD10 Diagnosis Term Behavioral Therapy Coordinator Utility Generalized anxiety disorder 02/02/2015 Depression 02/02/2015 Morbid obesity 02/02/2015 documented as of this encounter (statuses as of 05/15/2019) Resolved Problems Problem Noted Date Resolved Date Screening for STD (sexually transmitted disease) 02/02/2015 06/04/2017 Encounter for routine gynecological examination 02/02/2015 06/04/2017 Overview: ICD10 Diagnosis Term Behavioral Therapy Coordinator Utility BV (bacterial vaginosis) 02/02/2015 06/04/2017 documented as of this encounter (statuses as of 05/15/2019) Immunizations Name Administration Dates Next Due Td [...] Treatment Date Type Specialty Care Team Description 06/04/2019 Office Visit OB Satellites Pgy3 07/13/2019 Office Visit OB Satellites Dedra Candelario, VALUATION MANAGER [address] [place] [address] [phone] 07/14/2019 Office Visit Endocrinology Diabetes & GarsiaThanh MD Metabolism [address] [place], [place] [address] Health Maintenance Due Date Last Done Comments [...] 2011-Sabine [place] [id number] MANAGED MEDICAID [place] documented as of this encounter Advance Directives Name Relationship Healthcare Agent Communication Relationship Jerri Hoyos Child Primary healthcare agent
--- OUTSIDE RECORDS SUMMARY | 2019-08-21 16:45 | XMS REPORT | Summary of Care ---
:1965 Author Organization [facility] Address [address] [place] [address] Care Team Providers Name Role Phone Zack Taylor Primary Care Provider Reason for Visit Reason Comments ULTRASOUND Encounter Details Date Type Department Care Team Description 05/15/2019 Telephone [facility] RMCHP- Dedra Alamo, SUPERVISOR TREATING AND PUMPING ULTRASOUND [address] [place] [address] [place] A [phone] [place] [address] Allergies Active Allergy Reactions Severity Noted Date [...] 2 diabetes mellitus, uncontrolled, with neuropathy Insulin [place], Use as 100 Each 3 02/24/2019 Active [...] Essential hypertension 02/02/2015 Overview: ICD10 Diagnosis Term Band Tier Utility Type 2 diabetes mellitus without complications 02/02/2015 Overview: ICD10 Diagnosis Term Band Tier Utility Generalized anxiety disorder 02/02/2015 Depression 02/02/2015 Morbid obesity 02/02/2015 documented as of this encounter (statuses as of 05/15/2019) Resolved Problems Problem Noted Date Resolved Date Screening for STD (sexually transmitted disease) 02/02/2015 06/04/2017 Encounter for routine gynecological examination 02/02/2015 06/04/2017 Overview: ICD10 Diagnosis Term Band Tier Utility BV (bacterial vaginosis) 02/02/2015 06/04/2017 documented [...] Treatment Date Type Specialty Care Team Description 07/13/2019 Office Visit OB Satellites Dedra Candelario, SUPERVISOR TREATING AND PUMPING [address] [place] [address] [phone] 07/14/2019 Office Visit Endocrinology Diabetes & Thanh Garsia MD Metabolism [address] [place], [place] [address] Health Maintenance Due Date Last Done Comments [...] 2011-Sabine [place] [id number] MANAGED MEDICAID [place] documented as of this encounter Advance Directives Name Relationship Healthcare Agent Communication Relationship Jerri Hoyos Child Primary healthcare agent
--- OUTSIDE RECORDS SUMMARY | 2019-08-21 16:46 | XMS REPORT | Summary of Care ---
:1965 Author Organization [facility] Address [address] [place] [id number] Care Team Providers Name Role Phone Zack Taylor Primary Care Provider Reason for Referral (Routine) Status Reason Specialty Diagnoses / Referred By Contact Referred To Procedures Contact New Request Diagnoses Abnormal uterine bleeding (AUB) Selma Peterson Procedures BIOPSY OF UTERUS LINING SUCTION BERNARDA Dahl MD [address] [place] [phone] Reason for Visit Reason Comments POST MENOPAUSAL BLEEDING (Routine) Status Reason Specialty Diagnoses / Referred By Referred To Procedures Contact Contact New Request Obstetrics & Diagnoses Postmenopausal bleeding Dedra Candelario Gynecology Procedures CONSULT/REFERRAL FUNCTIONAL MENTAL DISABILITY TEACHER (search and rescue officer clinic) N, FOCUSED FACTORY MANAGER [address] [place] [address] Encounter Details Date Type Department Care Team Description 06/04/2019 Office Visit [facility] Selma Peterson MD [address] [place] [phone] Abnormal uterine [facility] Resident bleeding (AUB) [facility] (Primary Dx) [address], [address] [place] [address] Allergies Active Allergy Reactions Severity Noted Date Comments Exenatide Microspheres Rash, Swelling 08/24/2015 Insulin Glargine Dizziness 10/16/2016 Tetanus And Diphtheria Toxoids, Adsorbed, Swelling 02/01/2015 Adult documented as of this encounter (statuses as of 06/04/2019) Medications Medication Sig Dispensed Refills Start Date [...] 2 diabetes mellitus, uncontrolled, with neuropathy Insulin [place], Use as 100 Each 3 02/24/2019 Active [...] as of this encounter (statuses as of 06/04/2019) Active Problems Problem Noted Date Corpus luteum cyst or hematoma 04/17/2018 Overview: 3.3 L adnexal cyst 04/18/18 Irregular menstrual cycle 06/04/2017 Breast tenderness in female 06/04/2017 Uncontrolled type 2 diabetes mellitus 08/24/2015 Dyslipidemia 08/24/2015 Surveillance of previously prescribed contraceptive pill 02/02/2015 History of tubal ligation 02/02/2015 Essential hypertension 02/02/2015 Overview: ICD10 Diagnosis Term Green Meat Grader Utility Type 2 diabetes mellitus without complications 02/02/2015 Overview: ICD10 Diagnosis Term Green Meat Grader Utility Generalized anxiety disorder 02/02/2015 Depression 02/02/2015 Morbid obesity 02/02/2015 documented as of this encounter (statuses as of 06/04/2019) Resolved Problems Problem Noted Date Resolved Date Screening for STD (sexually transmitted disease) 02/02/2015 06/04/2017 Encounter for routine gynecological examination 02/02/2015 06/04/2017 Overview: ICD10 Diagnosis Term Green Meat Grader Utility BV (bacterial vaginosis) 02/02/2015 06/04/2017 documented as of this encounter (statuses as of 06/04/2019) Immunizations Name Administration Dates Next Due Td [...] Sign Reading Time Taken Comments Blood Pressure 126/64 06/04/2019 12:57 PM CDT Pulse 87 06/04/2019 12:57 PM CDT Temperature 36.8 C (98.3 F) 06/04/2019 12:57 PM CDT Respiratory Rate 18 06/04/2019 12:57 PM CDT Oxygen Saturation - - Inhaled Oxygen Concentration - - Weight 98.9 kg (218 lb) 06/04/2019 12:57 PM CDT Height 152.4 cm (5') 06/04/2019 12:57 PM CDT Body Mass Index 42.58 06/04/2019 12:57 PM CDT documented in this encounter Progress Notes Korey Dominguez MD - 06/04/2019 1:30 PM CDT Chief complaint: Chief Complaint Patient presents with POST MENOPAUSAL BLEEDING HPI Stephanie Noel is a 54 year old female here for EMBx. Seen previously for postmenopausal bleeding. Last menses in 2016. Did not have any VB until end of april. Currently, denies bleeding. TVUS showed EMS 5mm. Pap and HRHPV neg in 2014. Histories OB History Para Term AB Living [...] Past Surgical History: Procedure Laterality Date CHOLECYSTECTOMY [place] ANESTH,SURGERY OF SHOULDER TUBAL LIGATION Social History [...] file Gets together: Not on file Attends restorationist service: Not on file Active member of [...] Male control/protection: Surgical Labs No new labs Radiology Pelvic u/s 05/14/2019 FINDINGS: The uterus is normal in size and echotexture and exhibits no masses or focal defects. It measures 9.5 x 4.5 x 5.8 cm. The endometrial stripe measures 5 mm in thickness. A heterogeneous nodule is present within the anterior myometrium which measures 2.4 x 1.8 x 2.2 cm. The ovaries are not visualized. The urinary bladder is unremarkable. No fluid is present in the cul-de-sac. IMPRESSION Borderline thickened endometrial stripe in the setting of postmenopausal bleeding. Gynecologic consultation is recommended for possible soft tissue sampling. Allergies Stephanie is allergic to bydureon [exenatide [...] atenolol, esomeprazole magnesium, andlisinopril. Review of Systems BP 126/64 | Pulse 87 | Temp 36.8 C (98.3 F) (Oral) | Resp 18 | Ht 5' ( 1.524 m) | Wt 218 lb (98.9 kg) | LMP 05/09/2019 (Approximate) | BMI 42.58 kg/ m Pregravid BMI: Could not be calculated Physical Exam Endometrial Biopsy -Patient's written and verbal consent obtained. -Bimanual exam: anteverted nontender to palpation -Speculum inserted: cervix visualized. Then cervix was cleaned with betadinex3. Uterus sounded to 8cm. Pipelle was used to obtain endometrial sample with 2 pass. Patient tolerated procedure well. - sample taken to pathology lab Assessment/Plan Abnormal uterine bleeding (AUB) (primary encounter diagnosis) Comment: postmenopausal bleeding, EMS 5mm Plan: BIOPSY OF UTERUS LINING SUCTION TYPE - will f/u results with patient; instructed patient will notify of results and to RTC if bleeding recurs This visit did not involve counseling and coordination that comprised more than 50% of the visit time. D/w Dr. Ana Dominguez MD OBGYN PGY2 06/04/19 documented in this encounter Plan of Treatment Date Type Specialty Care Team Description 07/13/2019 Office Visit OB Satellites Dedra Candelario, FOCUSED FACTORY MANAGER [address] [place] [address] [phone] 07/14/2019 Office Visit Endocrinology Diabetes & Thanh Garsia MD Metabolism [address] [place] [address] [phone] Name Type Priority Associated Diagnoses Order Schedule BIOPSY OF UTERUS PROCEDURES Routine Abnormal uterine Ordered: 06/04/2019 LINING SUCTION TYPE bleeding (AUB) Health Maintenance Due Date Last Done Comments [...] filedocumented in this encounter Visit Diagnoses Diagnosis Abnormal uterine bleeding (AUB) - Primary documented in this encounter Insurance Payer Benefit Plan / Subscriber ID Effective Phone Address Type Group Dates JENSEN JENSEN xxxxxxxxx 2011-[address] [place] [id number] MANAGED MEDICAID [place], [place] documented as of this encounter Advance Directives Name Relationship Healthcare Agent Communication Relationship Jerri Hoyos Child Primary healthcare agent
--- OUTSIDE RECORDS SUMMARY | 2019-08-21 16:46 | XMS REPORT | Summary of Care ---
:1965 Author Organization [facility] Address [address] [place] [address] Care Team Providers Name Role Phone Zack Taylor Primary Care Provider Reason for Referral (Routine) Status Reason Specialty Diagnoses / Referred By Contact Referred To Procedures Contact New Request Diagnoses Abnormal uterine bleeding (AUB) Selma Peterson Procedures BIOPSY OF UTERUS LINING SUCTION BERNARDA Dahl MD [address] [place] [phone] Reason for Visit Reason Comments POST MENOPAUSAL BLEEDING (Routine) Status Reason Specialty Diagnoses / Referred By Referred To Procedures Contact Contact New Request Obstetrics & Diagnoses Postmenopausal bleeding Dedra Candelario Gynecology Procedures CONSULT/REFERRAL STUDIO RECEPTIONIST (health information systems technician clinic) N, CASER UP [address] [place] [address] Encounter Details Date Type Department Care Team Description 06/04/2019 Office Visit [facility] Selma Peterson MD [address] [place] [phone] Abnormal uterine [facility] Resident bleeding (AUB) [facility] (Primary Dx) [address], [address] [place] [address] Allergies Active Allergy Reactions Severity [...] 2 diabetes mellitus, uncontrolled, with neuropathy Insulin [place], Use as 100 Each 3 02/24/2019 Active [...] Essential hypertension 02/02/2015 Overview: ICD10 Diagnosis Term Core Cutter And Reamer Utility Type 2 diabetes mellitus without complications 02/02/2015 Overview: ICD10 Diagnosis Term Core Cutter And Reamer Utility Generalized anxiety disorder 02/02/2015 Depression 02/02/2015 Morbid obesity 02/02/2015 documented as of this encounter (statuses as of 06/04/2019) Resolved Problems Problem Noted Date Resolved Date Screening for STD (sexually transmitted disease) 02/02/2015 06/04/2017 Encounter for routine gynecological examination 02/02/2015 06/04/2017 Overview: ICD10 Diagnosis Term Core Cutter And Reamer Utility BV (bacterial vaginosis) 02/02/2015 06/04/2017 documented [...] Past Surgical History: Procedure Laterality Date CHOLECYSTECTOMY [place] ANESTH,SURGERY OF SHOULDER TUBAL LIGATION Social History [...] file Gets together: Not on file Attends orthodox service: Not on file Active member of [...] 07/13/2019 Office Visit OB Satellites Dedra Candelario, CASER UP [address] [place] [place] [address] [phone] 07/14/2019 Office Visit Endocrinology Diabetes & Thanh Garsia MD Metabolism [address] [place] [address] [phone] Name Type Priority Associated Diagnoses Order Schedule [...] O BOX [place] [id number] MANAGED MEDICAID [place], [place] documented as of this encounter Advance Directives Name Relationship Healthcare Agent Communication Relationship Jerri Hoyos Child Primary healthcare agent
--- OUTSIDE RECORDS SUMMARY | 2019-08-21 16:46 | XMS REPORT | Summary of Care ---
:1965 Author Organization [facility] Address [address] [place] [address] Care Team Providers Name Role Phone Zack Taylor Primary Care Provider Reason for Referral (Routine) Status Reason Specialty Diagnoses / Referred By Contact Referred To Procedures Contact New Request Diagnoses Abnormal uterine bleeding (AUB) Selma Peterson Procedures BIOPSY OF UTERUS LINING SUCTION BERNARDA Dahl MD [address] [place] [phone] Reason for Visit Reason Comments POST MENOPAUSAL BLEEDING (Routine) Status Reason Specialty Diagnoses / Referred By Referred To Procedures Contact Contact New Request Obstetrics & Diagnoses Postmenopausal bleeding Dedra Candelario Gynecology Procedures CONSULT/REFERRAL FREIGHT RATE SPECIALIST (copier and printer field technician clinic) N, SENIOR JAVA PROGRAMMER [address] [place] [address] Encounter Details Date Type Department Care Team Description 06/04/2019 Office Visit [facility] Selma Peterson MD [address] [place] [phone] Abnormal uterine [facility] Resident bleeding (AUB) [facility] (Primary Dx) [address], [address] [place] [address] Allergies Active Allergy Reactions Severity [...] 2 diabetes mellitus, uncontrolled, with neuropathy Insulin [place], Use as 100 Each 3 02/24/2019 Active [...] Essential hypertension 02/02/2015 Overview: ICD10 Diagnosis Term Hose Tubing Backer Utility Type 2 diabetes mellitus without complications 02/02/2015 Overview: ICD10 Diagnosis Term Hose Tubing Backer Utility Generalized anxiety disorder 02/02/2015 Depression 02/02/2015 Morbid obesity 02/02/2015 documented as of this encounter (statuses as of 06/04/2019) Resolved Problems Problem Noted Date Resolved Date Screening for STD (sexually transmitted disease) 02/02/2015 06/04/2017 Encounter for routine gynecological examination 02/02/2015 06/04/2017 Overview: ICD10 Diagnosis Term Hose Tubing Backer Utility BV (bacterial vaginosis) 02/02/2015 06/04/2017 documented [...] CDT documented in this encounter Progress Notes Selma Peterson MD - 06/04/2019 1:[address] discussion with Dr. Dominguez, I agree with resident's note as written. Selma Peterson MD Gynecology Faculty orey Barragan MD - 06/04/2019 1:30 PM CDT Chief [...] Births 1 # Outcome Date GA Lbr Sivlano/2nd Weight Sex Delivery Anes PTL Lv 6 [...] Past Surgical History: Procedure Laterality Date CHOLECYSTECTOMY CT ANESTH,SURGERY OF SHOULDER TUBAL LIGATION Social History [...] file Gets together: Not on file Attends taoist service: Not on file Active member of [...] 07/13/2019 Office Visit OB Satellites Dedra Candelario, SENIOR JAVA PROGRAMMER [address] [facility] [address] [place], [place] [phone] 07/14/2019 Office Visit Endocrinology Diabetes & GarsiaThanh MD Metabolism [address] [place] [address] [phone] Name Type Priority Associated Diagnoses Order Schedule BIOPSY OF UTERUS PROCEDURES Routine Abnormal uterine Ordered: 06/04/2019 LINING SUCTION TYPE bleeding (AUB) SURGICAL PATHOLOGY LAB Routine Abnormal uterine Ordered: 06/04/2019 EXAM bleeding (AUB) Health Maintenance Due Date Last [...] Address Type Group Dates CAMILA JENSEN xxxxxxxxx 2011-[address] [place] [id number] MANAGED MEDICAID [place] documented as of this encounter Advance Directives Name Relationship Healthcare Agent Communication Relationship Jerri Hoyos Child Primary healthcare agent
--- OUTSIDE RECORDS SUMMARY | 2019-08-21 16:46 | XMS REPORT | Summary of Care ---
:1965 Author Organization [facility] Address [address] [place] [address] Care Team Providers Name Role Phone Zack Taylor Primary Care Provider Reason for Referral (Routine) Status Reason Specialty Diagnoses / Referred By Contact Referred To Procedures Contact New Request Diagnoses Abnormal uterine bleeding (AUB) Selma Peterson Procedures BIOPSY OF UTERUS LINING SUCTION BERNARDA Dahl MD [address] [place] [phone] Reason for Visit Reason Comments POST MENOPAUSAL BLEEDING (Routine) Status Reason Specialty Diagnoses / Referred By Referred To Procedures Contact Contact New Request Obstetrics & Diagnoses Postmenopausal bleeding Dedra Candelario Gynecology Procedures CONSULT/REFERRAL BENCH WORKER HELPER (band builder clinic) N, DIAL REFINISHER [address] [place] [address] Encounter Details Date Type Department Care Team Description 06/04/2019 Office Visit [facility] Selma Peterson MD [address] [place] [phone] Abnormal uterine [facility] Resident bleeding (AUB) [facility] (Primary Dx) [address], [address] [place] [address] Allergies Active Allergy Reactions Severity [...] 2 diabetes mellitus, uncontrolled, with neuropathy Insulin [place], Use as 100 Each 3 02/24/2019 Active [...] Essential hypertension 02/02/2015 Overview: ICD10 Diagnosis Term Foreign Diplomat Utility Type 2 diabetes mellitus without complications 02/02/2015 Overview: ICD10 Diagnosis Term Foreign Diplomat Utility Generalized anxiety disorder 02/02/2015 Depression 02/02/2015 Morbid obesity 02/02/2015 documented as of this encounter (statuses as of 06/04/2019) Resolved Problems Problem Noted Date Resolved Date Screening for STD (sexually transmitted disease) 02/02/2015 06/04/2017 Encounter for routine gynecological examination 02/02/2015 06/04/2017 Overview: ICD10 Diagnosis Term Foreign Diplomat Utility BV (bacterial vaginosis) 02/02/2015 06/04/2017 documented [...] Past Surgical History: Procedure Laterality Date CHOLECYSTECTOMY [place] ANESTH,SURGERY OF SHOULDER TUBAL LIGATION Social History [...] file Gets together: Not on file Attends catholic service: Not on file Active member of [...] 07/13/2019 Office Visit OB Satellites Dedra Candelario, DIAL REFINISHER [address] [place] [address] [phone] 07/14/2019 Office Visit Endocrinology Diabetes & Thanh Garsia MD Metabolism [address] [place] [address] [phone] Name Type Priority Associated Diagnoses Order Schedule [...] [place] [place] [id number] MA[place]ED MEDICAID [place] documented as of this encounter Advance Directives Name Relationship Healthcare Agent Communication Relationship Jerri Hoyos Child Primary healthcare agent
--- OUTSIDE RECORDS SUMMARY | 2019-08-21 16:47 | XMS REPORT | Summary of Care ---
:1965 Author Organization [facility] Address [address] [place] [address] Care Team Providers Name Role Phone Zack Taylor Primary Care Provider Encounter Details Date Type Department Care Team Description 06/05/2019 Orders Only [facility] Doctor Unassigned, [address] [facility] [place] [address] [address] [place] [id number] Allergies Active Allergy Reactions Severity Noted Date Comments Exenatide Microspheres Rash, Swelling 08/24/2015 Insulin Glargine Dizziness 10/16/2016 Tetanus And Diphtheria Toxoids, Adsorbed, Swelling 02/01/2015 Adult documented as of this encounter (statuses as of 06/05/2019) Medications Medication Sig Dispensed Refills Start Date [...] 2 diabetes mellitus, uncontrolled, with neuropathy Insulin [place], Use as 100 Each 3 02/24/2019 Active [...] as of this encounter (statuses as of 06/05/2019) Active Problems Problem Noted Date Corpus luteum cyst or hematoma 04/17/2018 Overview: 3.3 L adnexal cyst 04/18/18 Irregular menstrual cycle 06/04/2017 Breast tenderness in female 06/04/2017 Uncontrolled type 2 diabetes mellitus 08/24/2015 Dyslipidemia 08/24/2015 Surveillance of previously prescribed contraceptive pill 02/02/2015 History of tubal ligation 02/02/2015 Essential hypertension 02/02/2015 Overview: ICD10 Diagnosis Term Element Winding Machine Tender Utility Type 2 diabetes mellitus without complications 02/02/2015 Overview: ICD10 Diagnosis Term Element Winding Machine Tender Utility Generalized anxiety disorder 02/02/2015 Depression 02/02/2015 Morbid obesity 02/02/2015 documented as of this encounter (statuses as of 06/05/2019) Resolved Problems Problem Noted Date Resolved Date Screening for STD (sexually transmitted disease) 02/02/2015 06/04/2017 Encounter for routine gynecological examination 02/02/2015 06/04/2017 Overview: ICD10 Diagnosis Term Element Winding Machine Tender Utility BV (bacterial vaginosis) 02/02/2015 06/04/2017 documented as of this encounter (statuses as of 06/05/2019) Immunizations Name Administration Dates Next Due Td [...] 07/13/2019 Office Visit OB Satellites Dedra Candelario, GLOBAL PROGRAM DIRECTOR [address] [place] [address] [phone] 07/14/2019 Office Visit Endocrinology Diabetes & Thanh Garsia MD Metabolism [facility] [place], [place] [address] Health Maintenance Due Date Last Done Comments [...] 02/02/2020 02/01/2015 documented as of this encounter Procedures Procedure Name Priority Date/Time Associated Diagnosis Comments DISCLOSURE AND CONSENT, Routine 06/05/2019 12:01 AM MEDICAL AND SURGICAL CDT PROCEDURES documented in this encounter Results Not on filedocumented in this encounter Insurance Payer Benefit Plan / Subscriber ID Effective Phone Address Type Group Dates CAMILA JENSEN xxxxxxxxx 2011-[place] [place] [id number] MANAGED MEDICAID [place] documented as of this encounter Advance Directives Name Relationship Healthcare Agent Communication Relationship Jerri Hoyos Child Primary healthcare agent
--- OUTSIDE RECORDS SUMMARY | 2019-08-21 16:47 | XMS REPORT | Summary of Care ---
:1965 Author Organization [facility] Address [address] [place] [address] Care Team Providers Name Role Phone Zack Taylor Primary Care Provider Reason for Referral (Routine) Status Reason Specialty Diagnoses / Referred By Contact Referred To Procedures Contact New Request Diagnoses Abnormal uterine bleeding (AUB) Selma Peterson Procedures BIOPSY OF UTERUS LINING SUCTION BERNARDA Dahl MD [address] [place] [phone] Reason for Visit Reason Comments POST MENOPAUSAL BLEEDING (Routine) Status Reason Specialty Diagnoses / Referred By Referred To Procedures Contact Contact New Request Obstetrics & Diagnoses Postmenopausal bleeding Dedra Candelario Gynecology Procedures CONSULT/REFERRAL ERP BUSINESS ANALYST (reactor fueling supervisor clinic) N, INFORMATION SECURITY ARCHITECT [address] [place] [address] Encounter Details Date Type Department Care Team Description 06/04/2019 Office Visit [facility] Selma Peterson MD [address] [place] [phone] Abnormal uterine [facility] Resident bleeding (AUB) [facility] Clinics (Primary Dx) [address], [address] [place] [address] Allergies Active Allergy Reactions Severity [...] 2 diabetes mellitus, uncontrolled, with neuropathy Insulin [place], Use as 100 Each 3 02/24/2019 Active [...] Essential hypertension 02/02/2015 Overview: ICD10 Diagnosis Term Buggy Runner Utility Type 2 diabetes mellitus without complications 02/02/2015 Overview: ICD10 Diagnosis Term Buggy Runner Utility Generalized anxiety disorder 02/02/2015 Depression 02/02/2015 Morbid obesity 02/02/2015 documented as of this encounter (statuses as of 06/04/2019) Resolved Problems Problem Noted Date Resolved Date Screening for STD (sexually transmitted disease) 02/02/2015 06/04/2017 Encounter for routine gynecological examination 02/02/2015 06/04/2017 Overview: ICD10 Diagnosis Term Buggy Runner Utility BV (bacterial vaginosis) 02/02/2015 06/04/2017 documented [...] Past Surgical History: Procedure Laterality Date CHOLECYSTECTOMY [place] ANESTH,SURGERY OF SHOULDER TUBAL LIGATION Social History [...] file Gets together: Not on file Attends tenriism service: Not on file Active member of [...] 07/13/2019 Office Visit OB Satellites Dedra Candelario, INFORMATION SECURITY ARCHITECT [address] [facility] [place], [place] [address] 07/14/2019 Office Visit Endocrinology Diabetes & GarsiaThanh MD Metabolism [address] [place] [address] [phone] Name Type Priority Associated Diagnoses Order Schedule [...] 2011-[address] Medicaid [place] [id number] MANAGED MEDICAID [place] documented as of this encounter Advance Directives Name Relationship Healthcare Agent Communication Relationship Jerri Hoyos Child Primary healthcare agent
[2019-08-21 18:20] LABS: Absolute Lymphocytes (CBC) 2.3 K/uL (0.7-4.9); Basophils % 0.2 % (0-1.3); Lymphocytes % 30.8 % (15.3-44.8); MPV 9.1 fL (7.6-11.3); RBC Red Blood Cell Count 4.46 M/uL (3.86-4.86)
[2019-08-21] MEDS ORDERED: METOCLOPRAMIDE 10 MG/2mL INJ ONE (18:22)
[2019-08-21] MEDS ORDERED: DIPHENHYDRAMINE 50 MG/ML VIAL ONE (18:22)
[2019-08-21] MEDS ORDERED: NA CHLORIDE 0.9% 500 ML ONE (18:23)
[2019-08-21 18:33] LABS: Protime INR 1.05
[2019-08-21 19:05] LABS: ALT/SGPT 21 U/L (12-78); AST/SGOT 13 U/L (15-37); Albumin 3.8 g/dL (3.4-5.0); Alkaline Phosphatase 49 U/L (45-117); BUN Blood Urea Nitrogen 11 mg/dL (7-18); Bicarbonate 26 mmol/L (21-32); Bilirubin Direct < 0.1 mg/dL (0-0.2); Bilirubin Total 0.2 mg/dL (0.2-1.0); Glucose Level 133 mg/dL (74-106); Magnesium 2.1 mg/dL (1.8-2.4); NT PRO-BNP 94 pg/mL (<125); Potassium 3.8 mmol/L (3.5-5.1); Protein, Total 8.1 g/dL (6.4-8.2); Sodium Level 140 mmol/L (136-145); Troponin (Emerg Dept Use Only) < 0.02 ng/mL (0.0-0.045)
--- NOTE | 2019-08-21 20:20 | RAD REPORT ---
EXAM DESCRIPTION: CT - Head Brain Wo Cont - 08/21/2019 7:33 pm CLINICAL HISTORY: Headache, hypertension COMPARISON: None. TECHNIQUE: Axial 5 mm thick images of the head were obtained without IV contrast. All CT scans are performed using dose optimization technique as appropriate and may include automated exposure control or mA/KV adjustment according to patient size. FINDINGS: No intracranial hemorrhage, mass, edema or shift of mid-line structures. No acute infarcti on changes seen. No abnormal extra-axial fluid collections. Ventricles are normal. Mastoid air cells and visualized portions of the paranasal sinuses are clear. No acute bony findings. IMPRESSION: Negative non-contrast CT head examination for acute finding.
--- NOTE | 2019-08-21 20:22 | RAD REPORT ---
EXAM DESCRIPTION: CT - Head angio - 08/21/2019 7:37 pm CLINICAL HISTORY: headache, history of AVM, hypertension TECHNIQUE: During dynamic enhancement using nonionic IV contrast, axial 1 millimeter thick images of the head were obtained. Sagittal and axial reconstruction images were generated using MIP technique and reviewed. All CT scans are performed using dose optimization technique as appropriate and may include automated exposure control or mA/KV adjustment according to patient size. FINDINGS: No aneurysm or vascular malformation identified. Major venous sinuses are patent. No stenosis, named branch occlusion, vasculitis or other significant vascular finding identifiable. IMPRESSION: Negative CT angio head examination.
--- NOTE | 2019-08-21 20:25 | RAD REPORT ---
EXAM DESCRIPTION: CT - Neck Angio - 08/21/2019 7:36 pm CLINICAL HISTORY: HEADACHE, hypertension TECHNIQUE: During dynamic enhancement using nonionic IV contrast, axial 2 mm thick images of the nec k were obtained. Sagittal and axial reconstruction images were generated using MIP technique and revi ewed. All CT scans are performed using dose optimization technique as appropriate and may include automated exposure control or mA/KV adjustment according to patient size. FINDINGS: No aneurysm or vascular malformation identified. No carotid or vertebral dissection. No aortic arch or great vessel origin abnormality seen. Vertebral artery origins unremarkable as well . No stenosis, vasculitis or other significant carotid artery finding. No focal abnormality of either vertebral artery. Basilar artery is normal. 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 IMPRESSION: Negative CT angio neck examination for acute or significant finding.
--- NOTE | 2019-08-21 20:36 | RAD REPORT ---
EXAM DESCRIPTION: RAD - Chest Single View - 08/21/2019 6:11 pm CLINICAL HISTORY: Chest pain COMPARISON: August 2018 TECHNIQUE: AP portable chest image was obtained 1806 hours . FINDINGS: Lungs are clear. Heart and vasculature are normal. No measurable pleural effusion and no p neumothorax. No acute bony abnormality seen. No acute aortic findings suspected. IMPRESSION: No acute cardiopulmonary process.
--- NOTE | 2019-08-21 21:28 | ER ---
Nurse's Notes 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 Pt aa5 also reports chest heaviness that began 4 days ago. Pt states "I've had a blood clot in my head before and this is what it feels like". 16:55 Transition of care: patient was not received from another setting of care. Onset of aa5 symptoms was July 2019. Risk Assessment: Do you want to hurt yourself or someone else? Patient reports no desire to harm self or others. Initial Sepsis Screen: Does the patient meet any 2 criteria? No. Patient's initial sepsis screen is negative. Does the patient have a suspected source of infection? No. Patient's initial sepsis screen is negative. Care prior to arrival: None. 16:55 Acuity: MADONNA 2 aa5 16:55 Method Of Arrival: Ambulatory aa5 Triage Assessment: 16:58 Headache History: The patient has had previous headaches and this one is similar to bp previous episodes. General: Appears in no apparent distress. comfortable, obese, Behavior is cooperative, appropriate for age, anxious. Pain: Pain currently is 5 out of 10 on a pain scale. Pain began 1 day ago. Also complains of HEADACHE. EENT: No deficits noted. Neuro: Level of Consciousness is awake, alert, obeys commands. Cardiovascular: Rhythm is sinus tachycardia. Respiratory: No deficits noted. GI: No signs and/or symptoms were reported involving the gastrointestinal system. : No deficits noted. Derm: No deficits noted. Musculoskeletal: No deficits noted. Historical: - Allergies: 16:56 Lantus; aa5 16:56 Tetanus Vaccines and Toxoid; aa5 - PMHx: 16:56 Anxiety; AVM; Diabetes - IDDM; GERD; Hyperlipidemia; Hypertension; Panic Attacks; aa5 - PSHx: 16:56 abscess drainage; Cholecystectomy; rotator cuff repair to right side; aa5 - Immunization history:: Flu vaccine is not up to date. - Social history:: Smoking status: Patient/guardian denies using tobacco. - Ebola Screening: : No symptoms or risks identified at this time. Screenin:06 Abuse screen: Denies threats or abuse. Denies injuries from another. Nutritional bp screening: No deficits noted. Tuberculosis screening: No symptoms or risk factors identified. Fall Risk None identified. Assessment: 17:00 General: SEE TRIAGE NOTE. bp 19:20 Reassessment: Patient and/or family updated on plan of care and expected duration. Pain aj1 level reassessed. General: Appears in no apparent distress. comfortable, Behavior is calm, cooperative, appropriate for age. Pain: Complains of pain in chest and top of head. Neuro: Level of Consciousness is awake, alert, obeys commands. 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 Cardiovascular: Patient's skin is warm and dry. Cardiovascular: Heart tones S1 S2 present Patient's skin is warm and dry. Respiratory: Airway is patent Respiratory effort is even, unlabored, Respiratory pattern is regular, symmetrical. GI: No signs and/or symptoms were reported involving the gastrointestinal system. : No signs and/or symptoms were reported regarding the genitourinary system. EENT: No signs and/or symptoms were reported regarding the EENT system. Derm: No signs and/or symptoms reported regarding the dermatologic system. Skin is pink, warm \\T\\ dry. normal. Musculoskeletal: No signs and/or symptoms reported regarding the musculoskeletal system. Circulation, motion, and sensation intact. 19:25 Reassessment: Patient transported to CT via stretcher. aj1 19:39 Reassessment: Patient returned to ER bed 15. aj1 20:24 Reassessment: Patient appears in no apparent distress at this time. No changes from aj1 previously documented assessment. Patient and/or family updated on plan of care and expected duration. Pain level reassessed. Patient is alert, oriented x 3, equal unlabored respirations, skin warm/dry/pink. 21:17 Reassessment: Patient appears in no apparent distress at this time. No changes from aj1 previously documented assessment. Patient and/or family updated on plan of care and expected duration. Pain level reassessed. Patient is alert, oriented x 3, equal unlabored respirations, skin warm/dry/pink. 22:05 Reassessment: Patient appears in no apparent distress at this time. No changes from aj1 previously documented assessment. Patient and/or family updated on plan of care and expected duration. Pain level reassessed. Patient is alert, oriented x 3, equal unlabored respirations, skin warm/dry/pink. Vital Signs: 16:56 BP 140 / 79; Pulse 102; Resp 16 S; Temp 98.5(TE); Pulse Ox 100% on R/A; Weight 100.24 aa5 kg (R); Height 5 ft. 0 in. (152.40 cm) (R); Pain 8/10; 18:00 BP 141 / 85; Pulse 89; Resp 16; Pulse Ox 100% ; bp 19:15 BP 136 / 84; Pulse 88; Resp 18; Pulse Ox 99% on R/A; aj1 20:25 BP 120 / 77; Pulse 91; Resp 18; Pulse Ox 100% on R/A; aj1 21:18 BP 110 / 80; Pulse 91; Resp 18; Pulse Ox 100% on R/A; aj1 16:56 Body Mass Index 43.16 (100.24 kg, 152.40 cm) aa5 ED Course: 16:43 Patient arrived in ED. cl3 16:54 Arm band placed on. aa5 16:56 Triage completed. aa5 16:58 Arsh Topete, RN is Primary Nurse. bp 17:06 EKG done, by ED staff, reviewed by Jose Alberto Fiore MD. jb1 17:42 Devin Quach PA is PHCP. [facility] 17:42 Jose Alberto Fiore MD is Attending Physician. [facility] 18:00 Inserted saline lock: 20 gauge in right antecubital area, using aseptic technique. bp Blood collected. 18:04 Radiology exam delayed due to lab results not completed at this time. (BUN/Creatinine) nj IV insertion attempt and/or patient not having appropriate IV at this time. 18:06 Patient has correct armband on for positive identification. Bed in low position. Call bp light in reach. Side rails up X2. Adult w/ patient. 18:56 Radiology exam delayed due to lab results not completed at this time. (BUN/Creatinine). nj 19:33 CT completed. Patient tolerated procedure well. Patient moved to CT. Patient moved back wi from CT. 21:55 No provider procedures requiring assistance completed. IV discontinued, intact, aj1 bleeding controlled, No redness/swelling at site. Pressure dressing applied. Administered Medications: 18:10 Drug: NS 0.9% 500 ml Route: IV; Rate: bolus; Site: right antecubital; bp 18:10 Drug: Reglan 10 mg Route: IVP; Site: right antecubital; bp 18:10 Drug: diphenhydrAMINE 12.5 mg Route: IVP; Site: right antecubital; bp Outcome: 21:26 Discharge ordered by MD. jody 22:05 Discharged to home ambulatory, with family. aj1 22:05 Condition: good 22:05 Discharge instructions given to patient, family, Instructed on discharge instructions, follow up and referral plans. Demonstrated understanding of instructions, follow-up care. 22:06 Patient left the ED. 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
--- NOTE | 2019-08-21 21:28 | EDPHYS ---
Physician Documentation [facility] Name: Stephanie Noel Age: 54 yrs Sex: Female : 1965 Arrival Date: 08/21/2019 Time: 16:43 Bed 15 Private MD: ED Physician Jose Alberto Fiore HPI: 08/21 18:02 This 54 yrs old Black Female presents to ER via Ambulatory with complaints of Headache, jmm Chest Pain. 18:02 The patient complains of pain to the top of head. Onset: The symptoms/episode jmm began/occurred gradually, 4 day(s) ago. Associated signs and symptoms: Pertinent positives: chest pain. Headache History: The patient has had previous headaches. This is a 54 year old female with a history of AVM, DM, GERD, HLP, HTN that presents to the ED with complaints of headache beginning approx 3 to 4 days ago which was mild which intensified today. Patient also complains of 4 days of constant substernal chest pain which began to radiate earlier to day. Denies previous UT but has been over 6 months since recent stress test. . Historical: - Allergies: 16:56 Lantus; aa5 16:56 Tetanus Vaccines and Toxoid; aa5 - PMHx: 16:56 Anxiety; AVM; Diabetes - IDDM; GERD; Hyperlipidemia; Hypertension; Panic Attacks; aa5 - PSHx: 16:56 abscess drainage; Cholecystectomy; rotator cuff repair to right side; aa5 - Immunization history:: Flu vaccine is not up to date. - Social history:: Smoking status: Patient/guardian denies using tobacco. - Ebola Screening: : No symptoms or risks identified at this time. ROS: 18:02 Constitutional: Negative for fever, chills, and weight loss, Cardiovascular: Negative jmm for chest pain, palpitations, and edema, Respiratory: Negative for shortness of breath, cough, wheezing, and pleuritic chest pain. 18:02 Neuro: Positive for headache. 18:02 All other systems are negative. Exam: 18:02 Constitutional: This is a well developed, well nourished patient who is awake, alert, jmm and in no acute distress. 18:02 Head/Face: atraumatic. Eyes: EOMI, no conjunctival erythema appreciated ENT: Moist Mucus Membranes Neck: Trachea midline, Supple Chest/axilla: Normal chest wall appearance and motion. 18:02 Cardiovascular: Rate: 18:02 Cardiovascular: Rate: normal, Rhythm: regular. 18:02 Respiratory: the patient does not display signs of respiratory distress, Respirations: normal, Breath sounds: are clear throughout. 18:02 Abdomen/GI: Inspection: abdomen appears normal, Bowel sounds: normal, Palpation: abdomen is soft and non-tender. 18:02 Back: ROM is normal. 18:02 Musculoskeletal/extremity: ROM: intact in all extremities. 18:02 Skin: Appearance: Color: normal in color. 18:02 Neuro: Orientation: is normal, Mentation: is normal, Memory: is normal. 18:02 Psych: Behavior/mood is pleasant, cooperative. Vital Signs: 16:56 BP 140 / 79; Pulse 102; Resp 16 S; Temp 98.5(TE); Pulse Ox 100% on R/A; Weight 100.24 aa5 kg (R); Height 5 ft. 0 in. (152.40 cm) (R); Pain 8/10; 18:00 BP 141 / 85; Pulse 89; Resp 16; Pulse Ox 100% ; bp 19:15 BP 136 / 84; Pulse 88; Resp 18; Pulse Ox 99% on R/A; aj1 20:25 BP 120 / 77; Pulse 91; Resp 18; Pulse Ox 100% on R/A; aj1 21:18 BP 110 / 80; Pulse 91; Resp 18; Pulse Ox 100% on R/A; aj1 16:56 Body Mass Index 43.16 (100.24 kg, 152.40 cm) aa5 MDM: 17:45 Patient medically screened. jody 21:23 Data reviewed: vital signs, nurses notes. Counseling: I had a detailed discussion with jody the patient and/or guardian regarding: the historical points, exam findings, and any diagnostic results supporting the discharge/admit diagnosis, lab results, radiology results, the need for outpatient follow up, to return to the emergency department if symptoms worsen or persist or if there are any questions or concerns that arise at home. Refusal of service: The patient/guardian displays adequate decision making capability and despite a detailed discussion of alternatives, benefits, risks, and consequences refuses: Admission to the hospital for further work-up and treatment. ED course: Pain is relieved in the ED. I discussed the need for observation for chest pain due to risk factors. Patient declined and stated she would return if pain returned. Patient understood and agrees with the plan of care. . 08/21 17:46 Order name: Basic Metabolic Panel [facility] 08/21 17:46 Order name: CBC with Diff [facility] 08/21 17:46 Order name: LFT's [facility] 08/21 17:46 Order name: Magnesium [facility] 08/21 17:46 Order name: NT PRO-BNP [facility] 08/21 17:46 Order name: PT-INR [facility] 08/21 17:46 Order name: Troponin (emerg Dept Use Only) [facility] 08/21 18:28 Order name: CBC with Automated Diff; Complete Time: 18:32 [facility] 08/21 18:57 Order name: Protime (+INR); Complete Time: 19:27 [facility] 08/21 19:06 Order name: Basic Metabolic Panel; Complete Time: 19:27 [facility] 08/21 19:06 Order name: Liver (Hepatic) Function; Complete Time: 19:27 [facility] 08/21 19:06 Order name: Troponin (Emerg Dept Use Only); Complete Time: 19:27 [facility] 08/21 19:06 Order name: NT PRO-BNP; Complete Time: 19:27 [facility] 08/21 19:06 Order name: Magnesium; Complete Time: 19:27 [facility] 08/21 17:46 Order name: XRAY Chest (1 view) [facility] 08/21 17:46 Order name: EKG; Complete Time: 17:47 [facility] 08/21 17:46 Order name: Cardiac monitoring; Complete Time: 18:04 [facility] 08/21 17:46 Order name: EKG - Nurse/Tech; Complete Time: 17:56 [facility] 08/21 17:46 Order name: IV Saline Lock; Complete Time: 18:04 [facility] 08/21 17:46 Order name: Labs collected and sent; Complete Time: 18:04 [facility] 08/21 17:46 Order name: CT Head Brain wo Cont [facility] 08/21 17:57 Order name: CT Head Angio [facility] 08/21 17:57 Order name: CT Neck Angio [facility] 08/21 20:23 Order name: CT; Complete Time: 20:23 [facility] 08/21 20:26 Order name: CT; Complete Time: 20:34 [facility] 08/21 20:26 Order name: CT; Complete Time: 20:34 [facility] 08/21 20:38 Order name: RAD; Complete Time: 21:01 [facility] 08/21 17:46 Order name: O2 Per Protocol; Complete Time: 18:04 [facility] 08/21 17:46 Order name: O2 Sat Monitoring; Complete Time: 18:04 [facility] Administered Medications: 18:10 Drug: NS 0.9% 500 ml Route: IV; Rate: bolus; Site: right antecubital; bp 18:10 Drug: Reglan 10 mg Route: IVP; Site: right antecubital; bp 18:10 Drug: diphenhydrAMINE 12.5 mg Route: IVP; Site: right antecubital; bp Disposition: 08/21/19 21:26 Discharged to Home. Impression: Headache, Chest pain, unspecified. - Condition is Stable. - Discharge Instructions: Nonspecific Chest Pain, Migraine Headache. - Medication Reconciliation Form, Thank You Letter, Antibiotic Education, Prescription Opioid Use form. - Follow up: Private Physician; When: 2 - 3 days; Reason: Recheck today's complaints, Continuance of care, Re-evaluation by your physician. Addendum: 08/24/2019 10:16 Co-signature as Attending Physician, Jose Alberto Fiore MD I agree with the assessment and k dr plan of care. Signatures: Dispatcher [employer] [facility] Selena Morocho RN RN aj1 Jose Alberto Fiore MD MD kdr Mickail, Joel, PA PA [facility] Akua Mccormick RN RN aa5 Arsh Topete RN RN bp Corrections: (The following items were deleted from the chart) 08/21 22:06 21:26 08/21/2019 21:26 Discharged to Home. Impression: Headache; Chest pain, aj1 unspecified. Condition is Stable. Forms are Medication Reconciliation Form, Thank You Letter, Antibiotic Education, Prescription Opioid Use. Follow up: Private Physician; When: 2 - 3 days; Reason: Recheck today's complaints, Continuance of care, Re-evaluation by your physician. [facility]
[2019-08-22 03:58] VITALS: TEMP 98.5
[2019-08-22 04:02] VITALS: O2SAT 100
[2019-08-22 04:03] VITALS: BP 110/80
--- NOTE | 2019-08-22 08:24 | EKG ---
Test Date: 2019-08-21 Test Time: 17:02:54 Office Rental Clerk: ODETTE MEASUREMENT RESULTS: Intervals: Rate: 104 NM: 172 QRSD: 76 QT: 354 QTc: 465 Paradis: P: 66 NM: 172 QRS: -9 T: 17 INTERPRETIVE STATEMENTS: Sinus tachycardia Moderate voltage criteria for LVH, may be normal variant Borderline ECG Compared to ECG 08/31/2018 18:18:49 Sinus rhythm no longer present Electronically Signed On 08-22-19 08:23:46 DISTRIBUTION SALES REPRESENTATIVE by Jayson Marie
== END 2019-08-21 22:06 | disposition home or self-care (01) ==
LOC: ER 16:41
DX: R07.9 Chest pain, unspecified (principal); I10 Essential (primary) hypertension; K21.9 Gastro-esophageal reflux disease without esophagitis; E11.9 Type 2 diabetes mellitus without complications; Z88.7 Allergy status to serum and vaccine; Z88.8 Allergy status to other drugs, medicaments and biological substances
CPT/HCPCS: 93005; 85025; 80048; 36415; 83735; 85610; 80076; 84484; 83880; 70450; 70496; 70498; 71045; 96375; 96374; 99285; Q9967; J2765; J1200; J7040

== ENCOUNTER 2021-01-14 23:27 | Emergency (ER) | payer SELFPAY ==
--- OUTSIDE RECORDS SUMMARY | 2021-01-14 23:29 | XMS REPORT | Continuity of Care Document ---
:1965 Author Organization [facility] t Address [address] [place] [address] Care Team Providers Name Role Phone Dylan Song DO Attending Clinician Sherwin Treviño MD Attending Clinician Ady AMBROCIO Attending Clinician Problems This patient has no known problems. Allergies, Adverse Reactions, Alerts This patient has no known allergies or adverse reactions. Medications Ordered Filled Start Stop Current Ordering Indication Dosage Frequency Signature Comments Components Source Medication Medication Date Date Medication? Clinician (SIG) Name Name Mily-Con 10 Wallac[place]-Con 10 Yes Zhang [address] [facility] 4[facility]17 [facility] with [facility] Omeprazole Omeprazole Yes Zhang [address] [facility] 30 minutes [facility] before [facility] morning [facility] Clonazepam Clonazepam Yes Zhang (schedule [facility] iv drug) [facility] Topiramate Topiramate Yes Zhang [address] [facility] Folic Acid Folic Acid Yes Zhang tk [address] [facility] Januvia Januvia Yes Zhang TK [address] [facility] True Metrix True Metrix Yes Zhang USE [facility] Blood Blood [facility] DIRECTED [facility] - Glucose Glucose TID [facility] Test Test l [facility] Tresiba Tresiba Yes Zhang INJ 56 [facility] FlexTouch FlexTouch [facility] UNITS SC D [facility] TRUEplus TRUEplus Yes Zhang USE UTD QD [facility] Pen Na[place] Pen Na[place]hu Pelae[facility] Metoprolol Metoprolol Yes Zhang [address] Succinate Succinate [facility] BuPROPion BuPROPion Yes Zhang [address] [facility] HCl ER (XL) HCl ER (XL) [facility] in the [facility] - morning [facility] Lisinopril Lisinopril Yes Zhang [address] [facility] [facility] Trazodone Trazodone Yes Zhang [address] HCl HCl [facility]aez at bedtime [facility] Restasis Restasis Yes Zhang INT [address] Pelaez IN OU BID [facility] Cetirizine Cetirizine Yes Zhang not C HI St HCl HCl Pelaez defined [facility] Metformin Metformin Yes Zhang TK [address] HCl HCl [facility] 2 XD WITH [facility] - MEALS [facility] Venlafaxine Venlafaxine Yes Zhang [address] HCl ER HCl ER Pelaez with food [facility] ent [facility] Pantoprazol Pantoprazol Yes Zhang [address] e Sodium e Sodium Pelaez [facility] Procedures This patient has no known procedures. Encounters Start End Encounter Admission Attending Care Care Encounter Source Date/Time Date/Time Type Type Clinicians Facility Department ID 2020-12-03 2020-12-03 Patient WATSON Song [id number] 00:00:00 00:00:00 Outreach [facility] [id number] [facility] [id number] MARY [id number] 2020-12-02 2020-12-02 Refill WATSON Treviño [id number] 00:00:00 00:00:00 Keraa Sanders [id number] [place] [id number] Professio [phone] [facility] 044 [facility] 2020-11-23 2020-11-23 Telephone Ady, [facility] [id number] 00:00:00 00:00:00 Thanh Sanders [id number] [place] [id number] Professio [phone] [facility] 220 [facility] 2020-11-21 2020-11-21 Refill Garsia, [facility] [id number] 00:00:00 00:00:00 Thanh Sanders [id number] [place] [id number] Professio [phone] [facility] 220 [facility] 2020-10-19 2020-10-19 Office Garsia, [facility] [id number] 08:53:55 09:47:38 Visit Thanh Sanders [id number] [place] [id number] Professio [phone] [address] 2020-08-22 2020-08-22 Outpatient [facility] [id number] 06:17:00 06:17:00 [facility] 2020-07-15 2020-07-15 [facility] [id number] [facility]00 [facility] Outpat[facility] Clinics 2020-06-07 2020-06-07 [facility] [id number] [facility] 14:00:00 14:00:00 t [facility] l Medicine Outpati ent Clinics 2020-04-05 2020-04-05 [facility] [id number] 10:30:00 10:30:00 t [facility] Medicine l Medicine Outpati ent Clinics 2020-02-04 2020-02-04 [facility] [id number] 13:15:00 13:15:00 t Echo it [facility] Medicine Outpati ent Clinics 2020-01-08 2020-01-08 [facility] [id number] 15:31:00 15:31:00 t Echo it [facility] Medicine Outpati ent Clinics 2020-01-07 2020-01-07 [facility] [id number] 10:15:00 10:15:00 t Echo it [facility] Medicine Outpati ent Clinics 2020-01-06 2020-01-06 [facility] [id number] 07:20:00 07:20:00 t Echo it [facility] Medicine Outpati ent Clinics 2019-12-08 2019-12-08 [facility] [id number] 10:00:00 10:00:00 t Echo it [facility] Medicine Outpati ent Clinics Results This patient has no known results.
--- NOTE | 2021-01-15 04:33 | ER ---
Nurse's Notes [facility] Name: Stephanie Noel Age: 55 yrs Sex: Female : 1965 Arrival Date: 01/14/2021 Time: 23:29 Bed Waiting Private MD: Diagnosis: Presentation: 01/15 00:18 Chief complaint: Patient states: she is having right sided pain 9/10 for 3 days and is bb unable to sleep. Coronavirus screen: At this time, the client does not indicate any symptoms associated with coronavirus-19. Ebola Screen: No symptoms or risks identified at this time. Initial Sepsis Screen: Does the patient meet any 2 criteria? No. Patient's initial sepsis screen is negative. Does the patient have a suspected source of infection? No. Patient's initial sepsis screen is negative. Risk Assessment: Do you want to hurt yourself or someone else? Patient reports no desire to harm self or others. Onset of symptoms was January 12, 2021. 00:18 Method Of Arrival: Ambulatory bb 00:18 Acuity: MADONNA 3 bb Triage Assessment: 00:20 General: Appears in no apparent distress. uncomfortable, Behavior is calm, cooperative. bb Pain: Complains of pain in right side Pain currently is 9 out of 10 on a pain scale. Neuro: Level of Consciousness is awake, alert, obeys commands, Oriented to person, place, time, situation. Cardiovascular: No deficits noted. Respiratory: Respiratory effort is even, unlabored, Respiratory pattern is regular. Derm: Skin is dry, Skin is normal, Skin temperature is warm. Musculoskeletal: Circulation, motion, and sensation intact. Historical: - Allergies: 00:20 Lantus; bb 00:20 Tetanus Vaccines and Toxoid; bb - Immunization history:: Adult Immunizations up to date. - Social history:: Smoking status: Patient denies any tobacco usage or history of. Assessment: 04:31 General: called patient but no answer. mg2 Vital Signs: 00:18 BP 137 / 69; Pulse 113; Resp 18 S; Temp 97.5(TE); Pulse Ox 99% on R/A; Weight 101.6 kg bb (R); Height 5 ft. 0 in. (152.40 cm) (R); Pain 9/10; 00:18 Body Mass Index 43.75 (101.60 kg, 152.40 cm) bb ED Course: 01/14 23:29 Patient arrived in ED. ag3 01/15 00:19 Triage completed. bb 00:20 Arm band placed on Patient placed in waiting room, Patient notified of wait time. bb Administered Medications: No medications were administered Outcome: 04:32 Patient left the ED. mg2 Signatures: Celia Badillo RN RN bb Sebastian Ibrahim RN RN mg2 Shavon Wade 3
[2021-01-15 04:40] VITALS: BP 137/69; TEMP 97.5; O2SAT 99
== END 2021-01-15 04:32 | disposition left against medical advice (07) ==
LOC: ER 23:27
DX: Z53.21 Procedure and treatment not carried out due to patient leaving prior to being seen by health care provider (principal)
CPT/HCPCS: 99281

== ENCOUNTER 2021-11-24 20:35 | Emergency (ER) | payer OTHER ==
--- OUTSIDE RECORDS SUMMARY | 2021-11-24 20:39 | XMS REPORT | Continuity of Care Document ---
:1965 Author Organization [facility] t Address [address] [place] [address] Care Team Providers Name Role Phone PEMA PELAEZ Primary Care Physician Unavailable Benigno Attending Clinician Unavailable LEANNE Attending Clinician Unavailable ARASELI Attending Clinician Unavailable Lab, - Db Attending Clinician Unavailable Araseli AMBROCIO Attending Clinician CHERYL Attending Clinician Unavailable Yong Song DO Attending Clinician Silvana Treviño MD Attending Clinician Payers Payer Name Policy Type Policy Number Effective Date Expiration Date [facility] [id number] 2011 MEDICAID 00:00:00 Advance Directives Directive Decision Effective Termination Comments Source Date Date Healthcare Agents on N/A [facility] FileNameRelationHolzer Health Systemealthcare [facility] Agent Medical RelationshipCommunicationAtlantiCare [facility] Care [phone] (Mobile) Problems Condition Condition Condition Status Onset Resolution Last Treating Co mments Source Name Details Category Date Date Treatment Clinician Date [place] Disease Active Overview: Univer s luteum luteum 7-26 Formattin ity of cyst or cyst or 00:00: g of this [place] hematoma hematoma 00 note Medica l might be Branch different from the original. 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-02 ity of diabetes diabetes 00:00: [place] mellitus mellitus 00 Medica l Branch Dyslipidem Dyslipidem Disease Active 2014-09 U mine ia ia 2- ity of 00:00: [place] 00 Medical Branch Surveillan Surveillan Disease Active U nivers ce of ce of 5-13 [place] of [place] 00 Me dical contracept contracept Br anch renzo pill renzo pill History of History of Disease Active U nivers tubal tubal 5-13 ity of ligation ligation 00:00: [place] 00 Medical Branch Essential Essential Disease Active Overview: Univers hypertensi hypertensi 5-13 Formattin ity of on on 00:00: g of this [place] 00 note Medical might be Branch different from the original. 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 Generalize Generalize Disease Active U nivers d anxiety d anxiety 5-13 ity of disorder disorder 00:00: [place] 00 Medical Branch Depression Depression Disease Active U nivers 5-13 ity of 00:00: [place] 00 Medical Branch Morbid Morbid Disease Active Univers obesity obesity 5-13 ity of 00:00: [place] 00 Medical Branch Allergies, Adverse Reactions, Alerts Allergy Allergy Status Severity Reaction(s) Onset Inactive Treating Comm ents Source Name Type Date Date Clinician Insulin Propensi Active Dizziness Univ ers Glargine ty to 1-24 ity of adverse 00:00: [place] reaction 00 Medical s Branch INSULIN DRUG Active Dizziness Univer s GLARGINE INGREDI 10-16 ity of 00:00: [place] 00 Medical Branch Exenatid Propensi Active Swelling 2014-09 Univ ers e ty to 10-25 ity of Microsph adverse 00:00: [place] eres reaction 00 Medical s Branch EXENATID DRUG Active Rash 2014-09 Univers E INGREDI 10-25 ity of MICROSPH 00:00: [place] ERES 00 Medical Branch Tetanus Propensi Active Swelling Unive rs And ty to 02-01 ity of Diphther adverse 00:00: [place] ia reaction 00 Medical Toxoids, s Branch Adsorbed , Adult TETANUS DRUG Active Swelling Univers AND INGREDI 02-01 ity of DIPHTHER 00:00: [place] 00 Medical TOXOIDS, Branch ADSORBED , ADULT Social History Social Habit Start Date Stop Date Quantity Comments Source Exposure to Not sure [facility] SARS-CoV-2 (event) Medica l [place] Alcohol intake 2021-06-27 2021-06-27 0 /d [facility] 00:00:00 00:00:00 Medical Branch Sex [birth year] [facility] y of [place] 00:00:00 00:00:00 Medical Branch Smoking Status Start Date Stop Date Source Never smoker [facility] Medications Ordered Filled Start Stop Current Ordering Indication Dosage Frequency Signature Comments Components Source Medication Medication Date Date Medication? Clinician (SIG) Name Name insulin Yes [id number] 80U inject 80 U nivers degludec 2-09 Units ity of (TRESIBA 00:[place] FLEXTOU[place] 00 skin every Medi brent U-200) 200 morning. Branc h unit/mL (3 mL) InPn ezetimibe Yes [id number] 10mg Take 1 U nivers 10 mg 2-09 tablet by ity of tablet 00:00: mouth 00 daily. Medical Branch METFORMIN Yes [id number] TAKE 2 Un luis 500 mg 1-12 TABLETS BY ity of tablet 00:00: MOUTH TWICE Medical DAILY WITH Branch MEALS METFORMIN Yes [id number] TAKE 2 Un luis 500 mg 1-12 TABLETS BY ity of tablet 00:00: MOUTH [place] 00 TWICE Medical DAILY WITH Branch MEALS pioglitazon 2020-09 Yes [id number] TAKE 1 Univers e 15 mg 2-13 TABLET BY ity of tablet 00:00: MOUTH [place] 00 EVERY DAY Medical Branch pioglitazon 2020-09 Yes [id number] TAKE 1 Univers e 15 mg 2-13 TABLET BY ity of tablet 00:00: MOUTH [place] 00 EVERY DAY Medical Branch pioglitazon 2020-09 Yes [id number] TAKE 1 Univers e 15 mg 2-13 TABLET BY ity of tablet 00:00: MOUTH [place] 00 EVERY DAY Medical Branch JANUVIA 100 2020-09 Yes [id number] TAKE 1 Univers mg tablet 1-26 TABLET BY ity o f 00:00: MOUTH [place] 00 EVERY Medical MORNING Branch JANUVIA 100 2020-09 Yes [id number] TAKE 1 Univers mg tablet 1-26 TABLET BY ity o f 00:00: MOUTH [place] 00 EVERY Medical MORNING Branch JANUVIA 100 2020-09 Yes [id number] TAKE 1 Univers mg tablet 1-26 TABLET BY ity o f 00:00: MOUTH [place] 00 EVERY Medical MORNING Branch JANUVIA 100 2020-09 Yes [id number] TAKE 1 Univers mg tablet 1-26 TABLET BY ity o f 00:00: MOUTH [place] 00 EVERY Medical MORNING Branch TRUE METRIX 2020-09 Yes [id number] USE THREE Univers GLUCOSE 0-16 TIMES ity of TEST STRIP 00:00: DAILY [place] strip 00 Medical Branch TRUE METRIX 2020-09 Yes [id number] USE THREE Univers GLUCOSE 0-16 TIMES ity of TEST STRIP 00:00: DAILY [place] strip 00 Medical Branch TRUE METRIX 2020-09 Yes [id number] USE THREE Univers GLUCOSE 0-16 TIMES ity of TEST STRIP 00:00: DAILY [place] strip 00 Medical Branch TRUE METRIX 2020-09 Yes [id number] USE THREE Univers GLUCOSE 0-16 TIMES ity of TEST STRIP 00:00: DAILY [place] strip 00 Medical Branch insulin 2020-09 Yes [id number] 80U inject 80 U nivers degludec 0-05 Units ity of (TRESIBA 00:00[place] FLEXTOUCH 00 skin every Medi brent U-200) 200 morning. Branc h unit/mL (3 mL) InPn insulin 2020-09 Yes [id number] 80U inject 80 U nivers degludec 0-05 Units ity of (TRESIBA 00:00[place] FLEXTOU[place] 00 skin every Medi brent U-200) 200 morning. Branc h unit/mL (3 mL) InPn insulin 2020-09 Yes [id number] 80U inject 80 U nivers degludec 0-05 Units ity of (TRESIBA 00:00[place] FLEXTOU[place] 00 skin every Medi brent U-200) 200 morning. Branc h unit/mL (3 mL) InPn insulin 2020-09 Yes [id number] 80U inject 80 U nivers degludec 0-05 Units ity of (TRESIBA 00:00: [place] FLEXTOU[place] 00 skin every Medi brent U-200) 200 morning. Branc h unit/mL (3 mL) InPn TRUE METRIX 2020- No [id number] USE THREE Univers GLUCOSE 9-13 10-16 TIMES ity of TEST STRIP 00:00: 00:00 DAILY [place] strip 00 :00 Medical Branch insulin 2020- No [id number] 72U inject 72 Univers degludec 9-13 10-05 Units ity of (TRESIBA 00:00: 00:00 under the [place] FLEXTOUCH 00 :00 skin every Medi brent U-200) 200 morning. Branc h unit/mL (3 mL) InPn EZETIMIBE Yes [id number] 10mg TAKE 1 U nivers 10 mg 8-27 TABLET BY ity of tablet 00:00: MOUTH 00 DAILY Medical Branch EZETIMIBE 0 Yes [id number] 10mg TAKE 1 U nivers 10 mg 8-27 TABLET BY ity of tablet 00:00: MOUTH DAILY Medical Branch EZETIMIBE 0 Yes [id number] 10mg TAKE 1 U nivers 10 mg 8-27 TABLET BY ity of tablet 00:00: MOUTH DAILY Medical Branch EZETIMIBE 0 Yes [id number] 10mg TAKE 1 U nivers 10 mg 8-27 TABLET BY ity of tablet 00:00: MOUTH 00 DAILY Medical Branch TECHLITE 0 Yes [id number] USE TWICE Univers PEN NEEDLE 7-26 DAILY ity of 32 gauge x 00:00: " [place] Medical Branch TECHLITE 2020-0 Yes [id number] USE TWICE Univers PEN NEEDLE 7-26 DAILY ity of 32 gauge x 00:: " [place] Medical Branch TECHLITE 2020-0 Yes [id number] USE TWICE Univers PEN NEEDLE 7-26 DAILY ity of 32 gauge x 00:00: " Medical Branch TECHLITE 2020-0 Yes [id number] USE TWICE Univers PEN NEEDLE 7-26 DAILY ity of 32 gauge x 00:00: " [place] Medical Branch TECHLITE 2020-0 Yes [id number] USE TWICE Univers PEN NEEDLE 7-26 DAILY ity of 32 gauge x 00:: " [place] Medical Branch METFORMIN 2020-0 Yes [id number] TAKE 2 Un luis 500 mg 7-15 TABLETS BY ity of tablet 00:00: MOUTH TWICE Medical DAILY WITH Branch MEALS METFORMIN 2020-0 Yes [id number] TAKE 2 Un luis 500 mg 7-15 TABLETS BY ity of tablet 00:00: MOUTH TWICE Medical DAILY WITH Branch MEALS METFORMIN 2020-0 Yes [id number] TAKE 2 Un luis 500 mg 7-15 TABLETS BY ity of tablet 00:00: MOUTH TWICE Medical DAILY WITH Branch MEALS METFORMIN 2020-0 2021- No [id number] TAKE 2 U nivers 500 mg 7-15 01-12 TABLETS BY ity of tablet 00:00: 00:00 MOUTH 00 :00 TWICE Medical DAILY WITH Branch MEALS pioglitazon 2020-0 Yes [id number] TK 1 T PO Univers e 15 mg 6-01 QD ity of tablet 00:00: Medical Branch pioglitazon 2020-0 Yes [id number] TK 1 T PO Univers e 15 mg 6-01 QD ity of tablet 00:00: Medical Branch pioglitazon 2020-0 2021- No [id number] TK 1 T PO Univers e 15 mg 6-01 12-13 QD ity of tablet 00:00: 00:00 [place] 00 :00 Medical Branch JANUVIA 100 2020-0 Yes [id number] TAKE 1 Univers mg tablet 5-26 TABLET BY ity o f 00:00: MOUTH EVERY Medical MORNING Branch JANUVIA 100 2020-0 2021- No [id number] TAKE 1 Univers mg tablet -18 08- TABLET BY ity of 00:00: 00:00 MOUTH [place] 00 :00 EVERY Medical MORNING Branch metoclopram 2019-1 Yes TAKE 5 ML U nivers anthony HCl 5 2-17 BY MOUTH ity of mg/5 mL 00:00: [place] solution 00 DAILY Medical BEFORE Branch MEALS 30 MINUTES BEFORE MEALS AND AT BEDTIME metoclopram 2019- Yes TAKE 5 ML U nivers anthony HCl 5 2-17 BY MOUTH ity of mg/5 mL 00:00: [place] solution 00 DAILY Medical BEFORE Branch MEALS 30 MINUTES BEFORE MEALS AND AT BEDTIME metoclopram 2019- Yes TAKE 5 ML U nivers anthony HCl 5 2-17 BY MOUTH ity of mg/5 mL 00:00: [place] solution 00 DAILY Medical BEFORE Branch MEALS 30 MINUTES BEFORE MEALS AND AT BEDTIME metoclopram 2020- Yes TAKE 5 ML U nivers anthony HCl 5 2-17 BY MOUTH ity of mg/5 mL 00:00: [place] solution 00 DAILY Medical BEFORE Branch MEALS 30 MINUTES BEFORE MEALS AND AT BEDTIME metoclopram 2020- Yes TAKE 5 ML U nivers anthony HCl 5 2-17 BY MOUTH ity of mg/5 mL 00:00: [place] solution 00 DAILY Medical BEFORE Branch MEALS 30 MINUTES BEFORE MEALS AND AT BEDTIME aspirin 81 2020-0 Yes 81mg Take 81 mg U nivers mg chewable 6-03 by mouth ity of tablet 11:51: daily. [address] aspirin 81 2020-0 Yes 81mg Take 81 mg U nivers mg chewable 6-03 by mouth ity of tablet 11:51: daily. [address] aspirin 81 2020-0 Yes 81mg Take 81 mg U nivers mg chewable 6-03 by mouth ity of tablet 11:51: daily. [address] aspirin 81 2020-0 Yes 81mg Take 81 mg U nivers mg chewable 6-03 by mouth ity of tablet 11:51: daily. [address] aspirin 81 2020-0 Yes 81mg Take 81 mg U nivers mg chewable 6-03 by mouth ity of tablet 11:51: daily. [address] clonazePAM 2020-0 Yes .5mg Take 0.5 Uni vers 0.5 mg 5-06 mg by ity of tablet 10:07: mouth 3 [place] 46 (three) Medical times Branch daily. clonazePAM 2020-0 Yes .5mg Take 0.5 Uni vers 0.5 mg 5-06 mg by ity of tablet 10:07: mouth 3 [place] 46 (three) Medical times Branch daily. clonazePAM 2020-0 Yes .5mg Take 0.5 Uni vers 0.5 mg 5-06 mg by ity of tablet 10:07: mouth 3 [place] [address] (three) Medical times Branch daily. clonazePAM 2020-0 Yes .5mg Take 0.5 Uni vers 0.5 mg 5-06 mg by ity of tablet 10:07: mouth 3 [place] [address] (three) Medical times Branch daily. clonazePAM 2020-0 Yes .5mg Take 0.5 Uni vers 0.5 mg 5-06 mg by ity of tablet 10:07: mouth 3 [place] [address] (three) Medical times Branch daily. topiramate 2020-0 Yes Univers 50 mg 5-03 ity of tablet 00:00: [address] topiramate 2020-0 Yes Univers 50 mg 5-03 ity of tablet 00:00: [address] topiramate 2020-0 Yes Univers 50 mg 5-03 ity of tablet 00:00: [address] topiramate 2020-0 Yes Univers 50 mg 5-03 ity of tablet 00:00: [address] topiramate 2020-0 Yes Univers 50 mg 5-03 ity of tablet 00:00: [address] Klor-Con 10 Klor-Con 10 2020-0 Yes Pema [address] [facility] 4[facility]17 [facility]ae[facility] with food [facility] KCL 10 mEq 2020-0 Yes Univers tablet 4-16 ity of 00:00: [address] KCL 10 mEq 2020-0 Yes Univers tablet 4-16 ity of 00:00: [address] KCL 10 mEq 2020-0 Yes Univers tablet 4-16 ity of 00:00: [address] KCL 10 mEq 2020-0 Yes Univers tablet 4-16 ity of 00:00: [address] KCL 10 mEq 2020-0 Yes Univers tablet 4-16 ity of 00:00: [address] traZODone 2020-0 Yes TK 1 T PO Uni vers 50 mg 4-15 QD HS ity of tablet 00:00: Medical Branch venlafaxine 2020-0 Yes TK 1 C PO U nivers XR 75 mg 24 4-15 QD WF ity of hr capsule 00:00: [place] [facility] Branch traZODone 2020-0 Yes TK 1 T PO Uni vers 50 mg 4-15 QD HS ity of tablet 00:00: [facility] venlafaxine 2020-0 Yes TK 1 C PO U nivers XR 75 mg 24 4-15 QD WF ity of hr capsule 00:00: [facility] Branch traZODone 2019-0 Yes TK 1 T PO Uni vers 50 mg 4-15 QD HS ity of tablet 00:00: [place] [facility] venlafaxine 0 Yes TK 1 C PO U nivers XR 75 mg 24 4-15 QD WF ity of hr capsule 00:00: [place] [facility] traZODone 0 Yes TK 1 T PO Uni vers 50 mg 4-15 QD HS ity of tablet 00:00: [place] [facility] venlafaxine 2019-0 Yes TK 1 C PO U nivers XR 75 mg 24 4-15 QD WF ity of hr capsule 00:00: [place] [facility] traZODone 0 Yes TK 1 T PO Uni vers 50 mg 4-15 QD HS ity of tablet 00:00: [place] [facility] venlafaxine 0 Yes TK 1 C PO U nivers XR 75 mg 24 4-15 QD WF ity of hr capsule 00:00: [place] [facility] metoprolol 2020-0 Yes TK 1 T PO Un luis succinate 4-14 QD ity of XL 100 mg 00:00: [place] 24 hr Medical tablet Branch RESTASIS 2020-0 Yes INT 1 GTT Univ ers 0.05 % 4-14 IN OU BID ity of ophthalmic 00:00: [place] drops 00 Medical Branch lisinopril 2020-0 Yes TK 1 T PO Un luis 40 mg 4-14 QD ity of tablet 00:00: [place] [facility] Branch metoprolol 2020-0 Yes TK 1 T PO Un luis succinate 4-14 QD ity of XL 100 mg 00:00: [place] 24 hr Medical tablet Branch RESTASIS 2020-0 Yes INT 1 GTT Univ ers 0.05 % 4-14 IN OU BID ity of ophthalmic 00:00: drops Medical Branch lisinopril 2020-0 Yes TK 1 T PO Un luis 40 mg 4-14 QD ity of tablet 00:00: Medical Branch metoprolol 2020-0 Yes TK 1 T PO Un luis succinate 4-14 QD ity of XL 100 mg 00:00: 24 hr 00 Medical tablet Branch RESTASIS 2020-0 Yes INT 1 GTT Univ ers 0.05 % 4-14 IN OU BID ity of ophthalmic 00:00: drops Medical Branch lisinopril 2020-0 Yes TK 1 T PO Un luis 40 mg 4-14 QD ity of tablet 00:00: Medical Branch metoprolol 2020-0 Yes TK 1 T PO Un luis succinate 4-14 QD ity of XL 100 mg 00:00: [place] 24 hr Medical tablet Branch RESTASIS 2020-0 Yes INT 1 GTT Univ ers 0.05 % 4-14 IN OU BID ity of ophthalmic 00:00: Medical Branch lisinopril 2020-0 Yes TK 1 T PO Un luis 40 mg 4-14 QD ity of tablet 00:00: Medical Branch metoprolol 2020-0 Yes TK 1 T PO Un luis succinate 4-14 QD ity of XL 100 mg 00:00: [place] 24 hr 00 Medical tablet Branch RESTASIS 2020-0 Yes INT 1 GTT Univ ers 0.05 % 4-14 IN OU BID ity of ophthalmic 00:00: Medical Branch lisinopril 2020-0 Yes TK 1 T PO Un luis 40 mg 4-14 QD ity of tablet 00:00: Medical Branch pantoprazol 2020-0 Yes TK 1 T PO U nivers e 40 mg EC 4-09 D ity of tablet 00:00: Medical Branch pantoprazol 2020-0 Yes TK 1 T PO U nivers e 40 mg EC 4-09 D ity of tablet 00:00: Medical Branch pantoprazol 2020-0 Yes TK 1 T PO U nivers e 40 mg EC 4-09 D ity of tablet 00:00: Medical Branch pantoprazol 2020-0 Yes TK 1 T PO U nivers e 40 mg EC 4-09 D ity of tablet 00:00: Medical Branch pantoprazol 2020-0 Yes TK 1 T PO U nivers e 40 mg EC 4-09 D ity of tablet 00:00: [place] 00 [facility] foLIC acid 2020-0 Yes TK 1 T PO Un luis 1 mg tablet 4-06 D ity of 00:00: [place] [facility] foLIC acid 2020-0 Yes TK 1 T PO Un luis 1 mg tablet 4-06 D ity of 00:00: [place] [facility] foLIC acid 2020-0 Yes TK 1 T PO Un luis 1 mg tablet 4-06 D ity of 00:00: [place] [facility] foLIC acid 2020-0 Yes TK 1 T PO Un luis 1 mg tablet 4-06 D ity of 00:00: [place] [facility] foLIC acid 2020-0 Yes TK 1 T PO Un luis 1 mg tablet 4-06 D ity of 00:00: [place] 00 [facility] Blood-Gluco 2019-0 Yes [id number] Use as Univers se Meter 7-12 directed ity of (TRUE 00:00: daily DX: [place] METRIX 00 E11.9 Medical GLUCOSE Branch METER) [facility] Blood-Gluco 2019-0 Yes [id number] Use as Univers se Meter 7-12 directed ity of (TRUE 00:00: daily DX: [place] METRIX 00 E11.9 Medical GLUCOSE Branch METER) [facility] Blood-Gluco 2019-0 Yes [id number] Use as Univers se Meter 7-12 directed ity of (TRUE 00:00: daily DX: [place] METRIX 00 E11.9 Medical GLUCOSE Branch METER) Misc Blood-Gluco 2019-0 Yes [id number] Use as Univers se Meter 7-12 directed ity of (TRUE 00:00: daily DX: [place] METRIX 00 E11.9 Medical GLUCOSE Branch METER) [facility]0 Yes [id number] Use as Univers se Meter 7-12 directed ity of (TRUE 00:00: daily DX: [place] METRIX 00 E11.9 Medical GLUCOSE Branch METER) [facility] triamcinolo 2015- Yes Univer s ne 2-12 ity of acetonide 00:00: [place] 0.1 % cream [facility] triamcinolo 2015-09 Yes Univer s ne 2-12 ity of acetonide 00:00: [place] 0.1 % cream [facility] triamcinolo 2015-09 Yes Univer s ne 2-12 ity of acetonide 00:00: [place] 0.1 % cream 00 Medical Branch triamcinolo 2016- Yes Univer s ne 2-12 ity of acetonide 00:00: [place] 0.1 % cream 00 Medical Branch triamcinolo 2015- Yes Univer s ne 2-12 ity of acetonide 00:00: [place] 0.1 % cream 00 Medical Branch lancets 2016- Yes Use as Univers (FREESTYLE 1-01 directed, ity of LANCETS) 28 00:00: TID, [place] gauge Misc 00 Dx:E11.9 Medic al Branch lancets 2015- Yes Use as Univers (FREESTYLE 1-01 directed, ity of LANCETS) 28 00:00: TID, [place] gauge Misc 00 Dx:E11.9 Medic al Branch lancets 2015- Yes Use as Univers (FREESTYLE 1-01 directed, ity of LANCETS) 28 00:00: TID, [place] gauge Misc 00 Dx:E11.9 Medic al Branch lancets 2015- Yes Use as Univers (FREESTYLE 1-01 directed, ity of LANCETS) 28 00:00: TID, [place] gauge Misc 00 Dx:E11.9 Medic al Branch lancets 2015- Yes Use as Univers (FREESTYLE 1-01 directed, ity of LANCETS) 28 00:00: TID, [place] gauge Misc 00 Dx:E11.9 Medic al Branch butalbital- Yes 1{tbl} Take 1 Un luis acetaminoph 6-28 tablet by ity of en-caff 00:00: mouth [place] (ESGIC) 00 every 6 Medical 50-325-40 (six) Branch mg tablet hours as needed for Headache. butalbital- Yes 1{tbl} Take 1 Un luis acetaminoph 6-28 tablet by ity of en-caff 00:00: mouth [place] (ESGIC) 00 every 6 Medical 50-325-40 (six) Branch mg tablet hours as needed for Headache. butalbital- Yes 1{tbl} Take 1 Un luis acetaminoph 6-28 tablet by ity of en-caff 00:00: mouth [place] (ESGIC) 00 every 6 Medical 50-325-40 (six) Branch mg tablet hours as needed for Headache. butalbital- 2016-0 Yes 1{tbl} Take 1 Un luis acetaminoph 6-28 tablet by ity of en-caff 00:00: mouth [place] (ESGIC) 00 every 6 Medical 50-325-40 (six) Branch mg tablet hours as needed for Headache. butalbital Yes 1{tbl} Take 1 Un luis acetaminoph 6-28 tablet by ity of en-caff 00:00: mouth [place] (ESGIC) 00 every 6 Medical 50-325-40 (six) Branch mg tablet hours as needed for Headache. Omeprazole Omeprazole Yes Pema [address] [facility] 30 minutes [facility] Clonazepam Clonazepam Yes Pema (schedule [facility] iv drug) [facility] Topiramate Topiramate Yes Pema [address] [facility] Folic Acid Folic Acid Yes Pema tk [address] [facility] Januvia [place] Yes Pema TK [address] [facility] True Metrix True Metrix Yes Pema USE [facility] Blood Blood Pelaez DIRECTED [facility] - Glucose Glucose TID [facility]oria Test Test l [facility] P[facility]J [facility] FlexTouch FlexTouch Pelae[place] UNITS [place] D [facility] TRUEplus TRUEplus Yes Pema USE UTD QD [facility] Pen [place] Pen [place] [facility] Metoprolol Metoprolol Yes Pema [address] Succinate Succinate Pelaez Luke [facility] - ER ER [facility] BuPROPion BuPROPion Yes Pema [address] HCl ER (XL) HCl ER (XL) [facility] in the [facility] Lisinopril Lisinopril Yes Pema [address] [facility] Trazodone Trazodone Yes Pema [address] [facility] HCl HCl Pelaez at bedtime [facility] Restasis Restasis Yes Pema INT [address] Pel[facility] IN OU BID [facility] Cetirizine Cetirizine Yes Pema not [facility] HCl HCl [facility] defined [facility] Metformin Metformin Yes Pema TK [address] [facility] HCl HCl [facility] 2 XD WITH [facility] Venlafaxine Venlafaxine Yes Pema [address] HCl ER HCl ER Pelae[facility] with food [facility] Pantoprazol Pantoprazol Yes Pema [address] [facility] e Sodium e Sodium Pelae[facility] Immunizations Ordered Filled Immunization Date Status Comments Sour e Immunization Name Name Td 2007-02-01 Completed University of 00:00:00 [facility] [place] [facility] Td 2007-02-01 Completed University of 00:00:00 [facility] 2007-02-01 Completed University of 00:00:00 [facility] 2007-02-01 Completed University of 00:00:00 [facility] 2007-02-01 Completed University of 00:00:00 [facility] [place] [facility] Vital Signs Vital Name Observation Time Observation Value Comments Source Systolic blood 2021-06-27 20:53:00 116 [facility]Hg[facility] Diastolic blood 2021-06-27 20:53:00 69 mm[Hg] [facility] Heart rate 2021-06-27 20:53:00 114 /min [facility] Body height 2021-06-27 20:53:00 152.4 cm [facility] Body weight 2021-06-27 20:53:00 103.874 kg [facility] BMI 2021-06-27 20:53:00 44.72 kg/m2 [facility] Oxygen saturation 2021-06-27 20:53:00 97 /min [facility] in Arterial blood [facility] anch by Pulse oximetry Procedures Procedure Date / Time Performed Performing Clinician Antoine e POCT HEMOGLOBIN A1C 2021-06-27 20:55:00 Thanh Marx [facility] TEST [facility] Encounters Start End Encounter Admission Attending Care Care Encounter Source Date/Time Date/Time Type Type Clinicians Facility Department ID 2021-10-18 Outpatient Pelaez, STLMLC STLMLC [id number] [facility] 11:44:14 P[facility] [id number] [facility] 2021-10-18 [facility] 11:[facility] Pema [id number] [facility] 2021-10-18 [facility] 11:[facility] Pema [id number] [facility] 2021-10-18 [facility] 11:17:48 Pema [id number] [facility] 2021-10-18 Outpatient Pelaez, [facility] 11:13:57 Pema [id number] [facility] 2021-08-29 Outpatient GOAUNG, MHSE MHSE [id number] 14:03:24 [facility] 2022-02-28 2022-02-28 Outpatient R ARASELI [facility] [id number] Univers 09:30:00 09:30:00 [facility] [id number] [facility] 2022-02-28 2022-02-28 Outpatient June MARX [facility] [id number] Univers 09:30:00 09:30:[address] [facility] [place] [place] 2021-11-02 2021-11-02 Civil [facility] Lab, Edwin - Abundio [facility] [id number] Univers 09:00:00 09:15:00 Visit [facility] [id number] [facility] [id number] [place] ERIN?BLEA [phone] [place] maria guadalupe [address] MEDICAL OFFICE BUILDING 2021-11-02 2021-11-02 Outpatient R [facility] [id number] Univers 09:00:00 09:00:00 [id number] [facility] 2021-11-02 2021-11-02 [facility] [id number] Univers 09:00:00 09:00:[address] [facility] [place] [place] 2021-11-01 2021-11-01 Outpatient R ARASELI [facility] [id number] Univers 12:00:00 12:00:00 [facility] [id number] ity [facility] 2021-11-01 2021-11-01 Outpatient R ARASELI [facility] [id number] Univers 12:00:00 12:00:[address] [facility] [place] [place] 2021-10-04 2021-10-04 [facility] [id number] Univers 00:00:00 00:00:00 [facility] [id number] i ty of [facility] [id number] [phone] [address] 2021-09-03 2021-09-03 [facility] [id number] Univers 00:00:00 00:00:00 [facility] [place] [id number] i ty of [facility] [id number] [id number] [address] 2021-08-17 2021-08-17 [facility] [id number] Univers 00:00:00 00:00:00 [facility] [id number] i ty of [facility] [id number] [phone] [address] 2021-06-30 2021-06-30 Outpatient IE SERGEY [id number] Memoria 10:15:00 10:15:00 06 l [place] 2021-06-27 2021-06-27 [facility] [id number] Univers 16:00:00 16:29:[address] [facility] [place] [place] 2021-06-27 2021-06-27 Office [facility] [id number] Univers 15:38:59 16:29:08 Visit [facility] [id number] it y of [facility] [id number] [place] ERIN?BLEA [phone] [place] maria guadalupe [facility] [address] MEDICAL OFFICE [facility] 2021-06-21 2021-06-21 Outpatient MHIE MHIE [id number] Memoria 16:00:00 16:00:00 07 sudha GrossCarrington 2021-04-04 2021-04-04 Outpatient YONY-WILL MHSE MED [id number] MH 12:23:00 23:59:00 IS, ANTHONY [facility] 2021 2021 Outpatient MHIE MHIE [id number] Memoria 10:15:00 10:15:00 05 [place] 2021-01-02 2021-01-02 Outpatient MHIE MHIE [id number] Memoria 10:00:00 10:00:00 04 [place] 2020-12-05 2020-12-05 Outpatient MHIE MHIE [id number] Memoria 10:00:00 10:00:00 02 [place] 2020-12-03 2020-12-03 Patient Duncan [facility] [id number] 00:00:00 00:00:00 Outreach [facility] [id number] [facility] [id number] PAVILLION [id number] [facility] 2020-12-02 2020-12-02 Refill Kamila [facility] [id number] 00:00:00 00:00:00 Keara Sanders [id number] [place] [id number] Professio [phone] [address] 2020-11-23 2020-11-23 Telephone Araseli [facility] [id number] 00:00:00 00:00:00 Thanh Sanders [id number] J[place] [id number] Professio [phone] [facility] 220 [facility] 2020-11-21 2020-11-21 Refill Araseli [facility] [id number] 00:00:00 00:00:00 Thanh Sanders [id number] [place] [id number] Profyordy [phone] [facility] 220 [facility] 2020-10-25 2020-10-25 Outpatient MHIE MHIE [id number] Memoria 08:00:00 08:00:00 03 sudha [place] 2020-10-19 2020-10-19 Office Araseli [facility] [id number] 08:53:55 09:47:38 Visit Thanh Sanders [id number] Jocelyne [id number] [facility] [phone] [address] 2020-09-06 2020-09-06 Outpatient MHIE MHIE [id number] Memoria 15:30:00 15:30:00 01 l [place] 2020-08-22 2020-08-22 Outpatient [facility] MED [id number] MH 06:17:00 23:59:00 IS, [facility]ON[facility] 2020-08-03 2020-08-03 Outpatient MHIE MHIE [id number] Memoria 14:30:00 14:30:00 00 l [place] 2020-07-15 2020-07-15 Outpatient STLMLC [facility] [id number] [facility] 00[facility]00 [facility] Clin[facility] 2020-06-07 2020-06-07 [facility] [id number] 14:00:00 14:00:00 [employer] [facility] l Medicine Outpati ent Clinics 2020-04-05 2020-04-05 [facility] [id number] 10:30:00 10:30:00 [employer] [facility] l Medicine Outpati ent Clinics 2020-02-04 2020-02-04 [facility] [id number] 13:15:00 13:15:00 [employer] [facility] l Medicine Outpati ent Clinics 2020-01-08 2020-01-08 [facility] [id number] 15:31:00 15:31:00 [employer] [facility] Medicine l Medicine Outpati ent Clinics 2020-01-07 2020-01-07 [facility] [id number] 10:15:00 10:15:00 [facility] 2020-01-06 2020-01-06 [facility] [id number] 07:20:00 07:20:00 [employer] [facility] 2019-12-08 2019-12-08 [facility] [id number] 10:00:00 10:00:00 [facility] ent Clinics Results Test Description Test Time Test Comments Results Result Comments Source POCT HEMOGLOBIN A1C TEST 2021-06-27 20:59:00 Test Item Value Reference Range Interpretation Comme nts POCT HBA1C (test code = 4548-4) 9.1 % 4-6 A Lab Interpretation (test code = 01727-6) Abnormal [facility]
[2021-11-24] MEDS ORDERED: MECLIZINE HCL 12.5 MG TAB ONE (22:04)
[2021-11-24] MEDS ORDERED: MORPHINE 2 MG/ML SYR ONE (22:05)
[2021-11-24 22:06] LABS: Absolute Lymphocytes (CBC) 1.9 K/uL (0.7-4.9); Hematocrit 31.2 % (36.0-45.0); Lymphocytes % 26.8 % (15.3-44.8); MPV 8.5 fL (7.6-11.3)
[2021-11-24 22:15] LABS: Protime INR 0.91
--- NOTE | 2021-11-24 22:22 | RAD REPORT ---
EXAM DESCRIPTION: USExtremity Venous Uni Ltd11/24/2021 10:09 pm CLINICAL HISTORY: Right leg pain COMPARISON: 2019 FINDINGS: Right common femoral, superficial femoral, popliteal and right posterior tibial veins are compressible and demonstrate augmentation. Doppler demonstrates good flow. Grayscale, color and spectral analysis performed on all vessels IMPRESSION: No evidence of deep venous thrombosis involving the right lower extremity.
[2021-11-24 22:28] LABS: ALT/SGPT 35 U/L (12-78); AST/SGOT 21 U/L (15-37); Albumin 3.5 g/dL (3.4-5.0); Alkaline Phosphatase 58 U/L (45-117); BUN Blood Urea Nitrogen 15 mg/dL (7-18); Bicarbonate 26 mmol/L (21-32); Bilirubin Total 0.2 mg/dL (0.2-1.0); Glucose Level 240 mg/dL (74-106); Magnesium 2.1 mg/dL (1.8-2.4); Potassium 4.1 mmol/L (3.5-5.1); Protein, Total 7.9 g/dL (6.4-8.2); Sodium Level 137 mmol/L (136-145)
[2021-11-24 22:31] LABS: Bilirubin Direct < 0.1 mg/dL (0-0.2)
[2021-11-24 22:43] LABS: SARS-COV-2 RT PCR NEGATIVE (NEGATIVE)
[2021-11-24 23:59] LABS: NT PRO-BNP 333 pg/mL (<125)
[2021-11-25] MEDS ORDERED: ASPIRIN 81 MG CHEWABLE TABLET ONE (00:07)
[2021-11-25] MEDS ORDERED: METOPROLOL TARTRATE 5 MG/5 ML INJ IV ONE (00:13)
--- NOTE | 2021-11-25 00:40 | EDPHYS ---
Physician Documentation [facility] Name: Stephanie Noel Age: 56 yrs Sex: Female : 1965 Arrival Date: 11/24/2021 Time: 20:39 Bed 18 Private MD: ED Physician Francisco Cox HPI: 11/24 21:15 This 56 yrs old Black Female presents to ER via Ambulatory with complaints of Blood cp Pressure Problem, HEART BEATING FAST. 21:15 The patient presents with a history of heart racing. cp 21:15 Context: The symptoms occur at rest. Onset: The symptoms/episode began/occurred today. cp The patient presents with dizziness. Associated signs and symptoms: Pertinent positives: headache, episode of chest pain, Pertinent negatives: abdominal pain, confusion, diaphoresis, focal weakness, numbness. Severity of symptoms: in the emergency department the symptoms are unchanged despite home interventions. Patient's baseline: Neuro: alert and fully oriented, Motor: no deficits, Ambulation: walks without assistance, Speech: normal. 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 Historical: - Allergies: 20:55 Lantus; lg3 20:55 Tetanus Vaccines and Toxoid; lg3 - Home Meds: 20:55 atenolol 50 mg Oral tab 1 tab 2 times per day [Active]; lisinopril 20 mg Oral tab 1 tab lg3 once daily [Active]; metformin 1,000 mg Oral tab 1 tab 2 times per day [Active]; Nexium 40 mg Oral cpDR 1 cap once daily [Active]; pioglitazone Oral 1 tab once daily [Active]; trazodone 50 mg Oral tab 1 tab nightly [Active]; Tresiba FlexTouch U-100 100 unit/mL (3 mL) subcutaneous inpn 68 unit daily [Active]; Xanax 1 mg Oral tab 1 tab 3 times per day [Active]; venlafaxine 150 mg oral cp24 [Active]; - PMHx: 20:55 Anxiety; AVM; Diabetes - IDDM; GERD; Hyperlipidemia; Hypertension; Panic Attacks; lg3 depression; - PSHx: 20:55 right rotator cuff; lg3 - Immunization history:: Adult Immunizations up to date, Client reports having NOT received the Covid vaccine. - Social history:: Smoking status: Patient denies any tobacco usage or history of. Patient/guardian denies using alcohol, street drugs. ROS: 21:20 Constitutional: Negative for body aches, chills, fever, poor PO intake. cp 21:20 Eyes: Negative for injury, pain, redness, and discharge. cp 21:20 ENT: Negative for ear pain, sore throat, difficulty swallowing, difficulty handling secretions. 21:20 Cardiovascular: Positive for palpitations, Negative for chest pain, edema. 21:20 Respiratory: Negative for wheezing. 21:20 Abdomen/GI: Negative for abdominal pain, vomiting, diarrhea, constipation, black/tarry stool, rectal bleeding. 21:20 : Negative for urinary symptoms. 21:20 Neuro: Positive for dizziness, headache, Negative for altered mental status, syncope, weakness. 21:20 All other systems are negative. Exam: 21:25 Constitutional: The patient appears in no acute distress, alert, awake, cp non-diaphoretic, non-toxic, well developed, well nourished, obese. 21:25 Head/Face: Normocephalic, atraumatic. cp 21:25 Eyes: Periorbital structures: appear normal, Conjunctiva: normal, no exudate, no injection, Sclera: no appreciated abnormality, Lids and lashes: appear normal, bilaterally. 21:25 ENT: External ear(s): are unremarkable, Nose: is normal, Mouth: Lips: moist, Oral mucosa: moist, Posterior pharynx: Airway: no evidence of obstruction, patent. 21:25 Neck: ROM/movement: is normal, is supple, without pain, no range of motions limitations. 21:25 Chest/axilla: Inspection: normal, Palpation: is normal, no crepitus, no tenderness. 21:25 Cardiovascular: Rate: normal, Rhythm: regular, Edema: is not appreciated, JVD: is not appreciated. 21:25 Respiratory: the patient does not display signs of respiratory distress, Respirations: normal, no use of accessory muscles, no retractions, labored breathing, is not present, Breath sounds: are clear throughout, no decreased breath sounds, no stridor, no wheezing. 21:25 Abdomen/GI: Inspection: abdomen appears normal, Palpation: abdomen is soft and non-tender, in all quadrants. 21:25 Back: pain, is absent, ROM is normal. 21:25 Neuro: Orientation: to person, place \\T\\ time. Mentation: is normal, Motor: moves all fours, strength is normal, Sensation: is normal. 21:45 ECG was reviewed by the Attending Physician. Vital Signs: 20:50 BP 159 / 90; Pulse 117; Resp 19 S; Temp 100.0(TE); Pulse Ox 99% on R/A; Weight 102.51 lg3 kg (R); Height 5 ft. (152.40 cm) (R); Pain 4/10; 21:10 BP 133 / 90; Pulse 115; Resp 18; Temp 98.5; Pulse Ox 100% on R/A; elisabeth 22:00 BP 109 / 93; Pulse 107; Resp 18; Pulse Ox 99% on R/A; elisabeth 23:00 BP 118 / 65; Pulse 108; Resp 18; Pulse Ox 99% on R/A; Pain 0/10; elisabeth 03 00:00 BP 112 / 81; Pulse 101; Resp 18; Pulse Ox 99% on R/A; elisabeth 01:00 BP 141 / 64; Pulse 106; Resp 18; Temp 98.5; Pulse Ox 100% on R/A; Pain 0/10; elisabeth 11/24 20:50 Body Mass Index 44.14 (102.51 kg, 152.40 cm) lg3 MDM: 11/24 21:10 Patient medically screened. cp 22:00 Differential diagnosis: arrythmia, dehydration, stress disorder. cp 23:52 Data reviewed: vital signs, nurses notes, lab test result(s), EKG, radiologic studies, cp CT scan, plain films, ultrasound. Test interpretation: by ED physician or midlevel provider: ECG, plain radiologic studies. Counseling: I had a detailed discussion with the patient and/or guardian regarding: the historical points, exam findings, and any diagnostic results supporting the discharge/admit diagnosis, lab results, radiology results. ED course: Discussed results of labs, EKG and radiology studies. Discussed continued admission for observation and cardiology consult. Patient declines at this time, reports having cardiology appt next week on Saturday and would like discharge to home for continued monitoring . 11/24 21:11 Order name: Basic Metabolic Panel cp 11/24 21:11 Order name: CBC with Diff; Complete Time: 22:21 cp 03/04 22:45 Interpretation: Normal except: HGB 10.4; HCT 31.2; MCV 74.3; MCH 24.8. cp 03/04 21:11 Order name: LFT's cp / 22:45 Interpretation: Normal except: GLOB 4.4; A/G 0.8. cp 03/ 21:11 Order name: Magnesium cp 03 21:11 Order name: NT PRO-BNP cp / 21:11 Order name: Troponin HS cp 03/ 21:12 Order name: Basic Metabolic Panel EDMS 03/ 22:45 Interpretation: Normal except: GFR 73; GLUC 240. cp / 21:29 Order name: D-Dimer; Complete Time: 22:21 cp / 21:29 Order name: US Extremity Venous Unilateral Ltd; Complete Time: 22:32 cp 11/24 21:31 Order name: COVID-19/FLU A+B (Document "Date of Onset" if Symptomatic); Complete Time: cp 22:44 11/24 22:00 Order name: Protime (+INR); Complete Time: 22:21 EDMS /04 22:22 Order name: CT Head Brain wo Cont cp 11/24 22:22 Order name: CT Chest For PE Angio cp 11/24 21:11 Order name: EKG; Complete Time: 21:12 cp /04 21:11 Order name: Cardiac monitoring; Complete Time: 21:38 cp / 21:11 Order name: EKG - Nurse/Tech; Complete Time: 21:38 cp 11/24 21:11 Order name: IV Saline Lock; Complete Time: 22:05 cp 11/24 21:11 Order name: Labs collected and sent; Complete Time: 22:05 cp /04 21:11 Order name: O2 Per Protocol; Complete Time: 21:38 cp / 21:11 Order name: O2 Sat Monitoring; Complete Time: 21:38 cp /04 22:47 Order name: XRAY Chest (1 view) cp EC:45 Rate is 113 beats/min. Rhythm is regular. ND interval is normal. QRS interval is cp normal. QT interval is normal. T waves are Inverted in lead aVR. Interpreted by me. Reviewed by me. Administered Medications: 22:06 Drug: Meclizine 25 mg Route: PO; elisabeth 11/25 00:02 Follow up: Response: No adverse reaction elisabeth 11/24 22:06 Drug: morphine 2 mg Route: IVP; Site: right antecubital; elisabeth 11/25 00:05 Drug: Aspirin Chewable Tablet 324 mg Route: PO; elisabeth 00:20 Drug: Metoprolol 5 mg Route: IVP; Site: right antecubital; elisabeth Disposition: 02:32 Co-signature as Attending Physician, Francisco Cox MD. [facility] Disposition Summary: 11/25/21 00:39 Discharge Ordered Location: Home cp Problem: an ongoing problem cp Symptoms: have improved cp Condition: Stable cp Diagnosis - Tachycardia, unspecified cp - Anemia in other chronic diseases classified elsewhere cp - Dizziness and giddiness cp - Hypertensive heart disease without heart failure cp Followup: cp - With: Private Physician - When: next week - Reason: Recheck today's complaints Discharge Instructions: - Discharge Summary Sheet cp - Anemia cp - Dizziness cp - Aspirin and Your Heart cp - Sinus Tachycardia cp - Form - Blood Pressure Record Sheet cp Forms: - Medication Reconciliation Form cp - Thank You Letter cp - Antibiotic Education cp - Prescription Opioid Use cp Prescriptions: - Meclizine 25 mg Oral Tablet - take 1 tablet by ORAL route every 8 hours As needed; 30 tablet; Refills: 0, cp Product Selection Permitted Signatures: Dispatcher [employer] EDMS Jose Martinez, SENIOR ANALYTICAL CHEMIST-C SENIOR ANALYTICAL CHEMIST-Cla1 Timo Gay PA PA cp Leanna Devries, LUCIANO RN 3 Francisco Cox MD MD 7 Celia Berumen RN RN elisabeth Corrections: (The following items were deleted from the chart) 11/24 22:00 21:12 PROTIME (+INR)+COAG.LAB.BRZ ordered. EDMS EDMS
--- NOTE | 2021-11-25 00:40 | ER ---
Nurse's Notes [facility] Name: Stephanie Noel Age: 56 yrs Sex: Female : 1965 Arrival Date: 11/24/2021 Time: 20:39 Bed 18 Private MD: Diagnosis: Tachycardia, unspecified;Anemia in other chronic diseases classified elsewhere;Dizziness and giddiness;Hypertensive heart disease without heart failure Presentation: 11/24 20:50 Chief complaint: Patient states: starting last night around 0200, increased BP and HR. lg3 had PCP appointment this morning. referred to caardiology for tachycardia. came home this afternoon and still concerned about elevated BP and HR. complaints of feeling like head is spinning. Coronavirus screen: Client denies travel out of the [place] in the last 14 days. At this time, the client does not indicate any symptoms associated with coronavirus-19. Ebola Screen: No symptoms or risks identified at this time. Initial Sepsis Screen: Does the patient meet any 2 criteria? HR > 90 bpm. No. Patient's initial sepsis screen is negative. Does the patient have a suspected source of infection? No. Patient's initial sepsis screen is negative. Risk Assessment: Do you want to hurt yourself or someone else? Patient reports no desire to harm self or others. Onset of symptoms was November 24, 2021 at 02:00. 20:50 Method Of Arrival: Ambulatory 3 20:50 Acuity: MADONNA 3 lg3 Triage Assessment: 20:55 General: Appears in no apparent distress. comfortable, Behavior is calm, cooperative, lg3 anxious. Pain: Complains of pain in headache Pain currently is 4 out of 10 on a pain scale. EENT: No deficits noted. No signs and/or symptoms were reported regarding the EENT system. Neuro: No deficits noted. Level of Consciousness is awake, alert, obeys commands, Oriented to person, place, time, situation. Cardiovascular: No deficits noted. Reports fatigue, lightheadedness, nausea. Respiratory: No deficits noted. Airway is patent Trachea midline Respiratory effort is even, unlabored, Respiratory pattern is regular, symmetrical. GI: No deficits noted. Abdomen is round non-distended. : No deficits noted. Derm: No deficits noted. No signs and/or symptoms reported regarding the dermatologic system. Skin is intact, is healthy with good turgor, Skin is dry. Musculoskeletal: No deficits noted. No signs and/or symptoms reported regarding the musculoskeletal system. Circulation, motion, and sensation intact. Range of motion: intact in all extremities. Historical: - Allergies: 20:55 Lantus; lg3 20:55 Tetanus Vaccines and Toxoid; lg3 - Home Meds: 20:55 atenolol 50 mg Oral tab 1 tab 2 times per day [Active]; lisinopril 20 mg Oral tab 1 tab lg3 once daily [Active]; metformin 1,000 mg Oral tab 1 tab 2 times per day [Active]; Nexium 40 mg Oral cpDR 1 cap once daily [Active]; pioglitazone Oral 1 tab once daily [Active]; trazodone 50 mg Oral tab 1 tab nightly [Active]; Tresiba FlexTouch U-100 100 unit/mL (3 mL) subcutaneous inpn 68 unit daily [Active]; Xanax 1 mg Oral tab 1 tab 3 times per day [Active]; venlafaxine 150 mg oral cp24 [Active]; - PMHx: 20:55 Anxiety; AVM; Diabetes - IDDM; GERD; Hyperlipidemia; Hypertension; Panic Attacks; lg3 depression; - PSHx: 20:55 right rotator cuff; lg3 - Immunization history:: Adult Immunizations up to date, Client reports having NOT received the Covid vaccine. - Social history:: Smoking status: Patient denies any tobacco usage or history of. Patient/guardian denies using alcohol, street drugs. Screenin:59 Abuse screen: Denies threats or abuse. Denies injuries from another. Nutritional lg3 screening: No deficits noted. Tuberculosis screening: No symptoms or risk factors identified. Fall Risk None identified. Assessment: 21:48 Reassessment: Patient appears in no apparent distress at this time. I recv'd the pt to elisabeth room 18 \\T\\ 2109. 21:56 General: US is at bedside performing exam. . elisabeth Vital Signs: 20:50 BP 159 / 90; Pulse 117; Resp 19 S; Temp 100.0(TE); Pulse Ox 99% on R/A; Weight 102.51 lg3 kg (R); Height 5 ft. (152.40 cm) (R); Pain 4/10; 21:10 BP 133 / 90; Pulse 115; Resp 18; Temp 98.5; Pulse Ox 100% on R/A; elisabeth 22:00 BP 109 / 93; Pulse 107; Resp 18; Pulse Ox 99% on R/A; elisabeth 23:00 BP 118 / 65; Pulse 108; Resp 18; Pulse Ox 99% on R/A; Pain 0/10; elisabeth 11/25 00:00 BP 112 / 81; Pulse 101; Resp 18; Pulse Ox 99% on R/A; elisabeth 01:00 BP 141 / 64; Pulse 106; Resp 18; Temp 98.5; Pulse Ox 100% on R/A; Pain 0/10; elisabeth 11/24 20:50 Body Mass Index 44.14 (102.51 kg, 152.40 cm) lg3 ED Course: 11/24 20:39 Patient arrived in ED. es 20:55 Triage completed. lg3 20:55 Arm band placed on right wrist. lg3 21:04 Timo Gay PA is PHCP. cp 21:04 Francisco Cox MD is Attending Physician. cp 21:10 Placed in gown. Bed in low position. Call light in reach. Side rails up X 1. Cardiac elisabeth monitor on. Pulse ox on. NIBP on. 21:14 Celia Berumen, RN is Primary Nurse. elisabeth 21:49 Troponin HS Sent. elisabeth 21:49 NT PRO-BNP Sent. elisabeth 21:49 Magnesium Sent. elisabeth 21:49 LFT's Sent. elisabeth 21:49 CBC with Diff Sent. elisabeth 21:50 Basic Metabolic Panel Sent. elisabeth 21:50 D-Dimer Sent. elisabeth 21:56 COVID-19/FLU A+B (Document "Date of Onset" if Symptomatic) Sent. elisabeth 22:05 COVID-19/FLU A+B (Document "Date of Onset" if Symptomatic) Sent. elisabeth 22:05 Basic Metabolic Panel Sent. elisabeth 22:05 D-Dimer Sent. elisabeth 22:05 Protime (+INR) Sent. elisabeth 22:05 Basic Metabolic Panel Sent. elisabeth 22:05 CBC with Diff Sent. elisabeth 22:05 LFT's Sent. elisabeth 22:06 Magnesium Sent. elisabeth 22:06 NT PRO-BNP Sent. elisabeth 22:09 US Extremity Venous Unilateral Ltd In Process Unspecified. EDMS 22:56 CT Head Brain wo Cont In Process Unspecified. EDMS 22:57 CT Chest For PE Angio In Process Unspecified. EDMS 22:58 XRAY Chest (1 view) In Process Unspecified. EDMS 11/25 01:01 No provider procedures requiring assistance completed. elisabeth 01:21 intact, bleeding controlled, No redness/swelling at site. Pressure dressing applied. elisabeth Administered Medications: 11/24 22:06 Drug: Meclizine 25 mg Route: PO; elisabeth 11/25 00:02 Follow up: Response: No adverse reaction elisabeth 11/24 22:06 Drug: morphine 2 mg Route: IVP; Site: right antecubital; elisabeth 11/25 00:05 Drug: Aspirin Chewable Tablet 324 mg Route: PO; elisabeth 00:20 Drug: Metoprolol 5 mg Route: IVP; Site: right antecubital; elisabeth Outcome: 00:39 Discharge ordered by . cp 01:01 Condition: stable elisabeth 01:21 Discharged to home ambulatory, with family. elisabeth 01:21 Discharge instructions given to patient, Instructed on discharge instructions, follow up and referral plans. medication usage, Demonstrated understanding of instructions, follow-up care, medications, Prescriptions given X 1. 01:22 Patient left the ED. elisabeth Signatures: Dispatcher [employer] EDMS Bethany Manuel Corey, PA PA cp Gibson, Lacie, LUCIANO RN lg3 Celia Berumen RN RN elisabeth Corrections: (The following items were deleted from the chart) 11/24 21:00 20:50 BP 159 / 90; Pulse 122bpm; Resp 21bpm; Spontaneous; Pulse Ox 99% RA; Temp 100.0F lg3 Temporal; 102.51 kg Reported; Height 5 ft. Reported; BMI: 44.1; Pain 4/10; lg3 22:00 21:49 PROTIME (+INR)+COAG.LAB.BRZ drawn and sent. elisabeth EDMS
[2021-11-25 01:31] VITALS: TEMP 98.5
[2021-11-25 01:36] VITALS: BP 141/64; O2SAT 100
--- NOTE | 2021-11-25 08:09 | RAD REPORT ---
EXAM DESCRIPTION: RAD - Chest Single View - 11/24/2021 10:58 pm CLINICAL HISTORY: PALPITATIONS COMPARISON: Chest Single View dated 08/21/2019; Chest Single View dated 08/31/2018; Chest Single View dated 03/12/2018; Chest Single View dated 07/28/2017 FINDINGS: Lines: None. Lungs: No evidence of edema or pneumonia. Increased prominence of the pulmonary vasculature which is likely related to radiographic technique. Pleural: No significant pleural effusions or pneumothorax. Cardiac: The heart size is within normal limits. Bones: No acute fractures. Other: IMPRESSION: No acute cardiopulmonary disease.
--- NOTE | 2021-11-25 12:45 | EKG ---
Test Date: 2021-11-24 Test Time: 21:37:34 Scrubbing Machine Operator: LMT MEASUREMENT RESULTS: Intervals: Rate: 113 [place]: 182 QRSD: 78 QT: 328 QTc: 449 [place]: P: 53 [place]: 182 QRS: -12 T: 18 INTERPRETIVE STATEMENTS: Sinus tachycardia Voltage criteria for left ventricular hypertrophy Abnormal ECG Compared to ECG 08/21/2019 17:02:54 No significant changes Electronically Signed On 11-25-21 12:44:46 [employer]ATCH [employer]KER AND REPAIRER by Cruz Montgomery
--- NOTE | 2021-11-25 22:15 | RAD REPORT ---
EXAM DESCRIPTION: CT - Head Brain Wo Cont - 11/25/2021 6:36 am CLINICAL HISTORY: 56 years, Female, Dizziness;Headache COMPARISON: None FINDINGS: Multiple transaxial tomograms of the brain were obtained from the base of the skull to the vertex without contrast. 2-D multiplanar reformats and the coronal and sagittal plane were performed and reviewed. This exam was performed according to our departmental dose-optimization protocol, which includes auto mated exposure control, adjustment of the mA and/or kV according to patient size and/or use of iterat renzo reconstruction technique. Brain parenchyma as well as the [place] and white matter differentiation demonstrate to be unremarkable. There is no midline shift and/or mass effect. There is no evidence for acute hemorrhage. No focal ar eas of hypodensities. Lateral ventricles and cisterns displace normal appearance. No intra or ext ra axial fluid collections were seen. The calvarium is intact with no evidence for fracture. The visu alized portions of the paranasal sinuses demonstrate minimal mucosal thickening posterior sphenoid si nuses and orbits demonstrate to be clear. IMPRESSION: No acute intracranial abnormalities identified. Minimal mucosal thickening posterior sphenoid sinuses. Electronically signed by: Kit Lewis MD 11/24/2021 11:12 PM CLINICAL PHLEBOTOMIST Due to temporary technical issues with the PACS/Fluency reporting system, reports are being signed by the in house radiologists without review as a courtesy to insure prompt reporting. The interpreting radiologist is fully responsible for the content of the report.
--- NOTE | 2021-11-25 22:29 | RAD REPORT ---
EXAM DESCRIPTION: CT - Chest For Pe Angio - 11/25/2021 6:36 am CLINICAL HISTORY: 56 years, Female, Palpitations;Chest pain COMPARISON: None. TECHNIQUE: Multiple transaxial tomograms of the chest were obtained from the lung apices through the lung bases utilizing 2 mm slice thickness at 2 mm interval reconstruction after the administration o f large bolus of IV contrast for complete opacification of the pulmonary arteries. Subsequent 3-D maximum intensity projection images were generated in the coronal and sagittal plane f or review. This exam was performed according to our departmental dose-optimization protocol, which includes auto mated exposure control, adjustment of the mA and/or kV according to patient size and/or use of iterat renzo reconstruction technique. FINDINGS: The lungs parenchyma demonstrate to be clear. No masses, nodules and/or consolidations are identified. Calcified granuloma posterior segment right lower lobe on image 53. The trachea mainstem bronchus demonstrate to be normal. There is no significant pericardial or pleura l effusions. The thoracic aorta demonstrate to be unremarkable. The heart is normal in size. No evidence for right ventricular strain. There are minimal coronary artery calcification. There is no significant mediastinal and/or hilar lymphadenopathy. The axillary regions demonstrate to be clear. Pulmonary arteries demonstrate to be normal, no intraluminal defect are seen that would suggest pulmo nary embolus. The bone windows demonstrate no significant skeletal lesions. The visualized portions of the upper abdomen demonstrate fatty infiltration. IMPRESSION: No CT evidence for pulmonary embolism. Minimal coronary artery calcification. Fatty infiltration of the liver. Electronically signed by: Kit Lewis MD 11/24/2021 11:21 PM BASEBALL SCOUT Due to temporary technical issues with the PACS/Fluency reporting system, reports are being signed by the in house radiologists without review as a courtesy to insure prompt reporting. The interpreting radiologist is fully responsible for the content of the report.
== END 2021-11-25 01:22 | disposition home or self-care (01) ==
LOC: ER 20:35
DX: I11.9 Hypertensive heart disease without heart failure (principal); D64.9 Anemia, unspecified; R42 Dizziness and giddiness; I10 Essential (primary) hypertension; E11.9 Type 2 diabetes mellitus without complications; F41.8 Other specified anxiety disorders; Z79.4 Long term (current) use of insulin; Z88.7 Allergy status to serum and vaccine; Z88.8 Allergy status to other drugs, medicaments and biological substances; Z20.822 Contact with and (suspected) exposure to COVID-19
CPT/HCPCS: 93005; 85025; 80048; 36415; 83735; 85610; 85379; 80076; 84484; 83880; 0240U; 70450; 71275; 71045; 93971; 96375; 96374; 99284; Q9967; J8597; J2270

== ENCOUNTER 2023-04-09 21:53 | Emergency (ER) | payer OTHER ==
--- OUTSIDE RECORDS SUMMARY | 2023-04-09 22:58 | XMS REPORT | Continuity of Care Document ---
:1965 Author Organization [facility] t Address [address] [facility] [address] [place] [id number] Care Team Providers Name Role Phone Adamaris Torres MD Primary Care Physician Zhang Ayala Attending Clinician Unavailable ABHILASH PERDOMO Attending Clinician Unavailable JULIO GARSIA Attending Clinician Unavailable CELIA FERNANDEZ Attending Clinician Unavailable DEBBIE SHANNON Attending Clinician Unavailable ADAMARIS TORRES Attending Clinician Unavailable ADAMARIS TORRES Attending Clinician Unavailable Jyoti Demarco MD Attending Clinician Julio Garsia MD Attending Clinician Mason Mcgill Attending Clinician KAMARI MULTANI Attending Clinician Unavailable Kamari Multani DO Attending Clinician Celia Fernandez CNM Attending Clinician LEO BRENNAN Attending Clinician Unavailable Vishal Dockery MD Attending Clinician Lab, Ang - Db Attending Clinician Unavailable MASON EMERY Attending Clinician Unavailable SHILA PALMER Attending Clinician Unavailable Shila Pruitt Attending Clinician ARIANNA HENSLEY Attending Clinician Unavailable Jaspal Jones MD Attending Clinician Arianna Hensley MD Attending Clinician Doctor Unassigned, Berkley Attending Clinician Unavailable JYOTI DEMARCO Attending Clinician Unavailable Pob, Adc Lab Main Attending Clinician Unavailable Pcp-Lab Attending Clinician Unavailable DUARTE GRAYSON Attending Clinician Unavailable Duarte Grayson MD Attending Clinician DILLON RODRIGUEZ Attending Clinician Unavailable Dillon Navarro Attending Clinician Unknown, Attending Attending Clinician Unavailable ROSALINO AYALA Attending Clinician Unavailable Jamie Dias MD, Chilvana Attending Clinician OMAGHOMI, OMAYEMI Attending Clinician Unavailable Omaghomi BEAD BUILDER, Omayemi Attending Clinician Nurse, Edwin Endo/Diab Attending Clinician Unavailable KRYSTYNA DAVIDSON Attending Clinician Unavailable Renny Najera MD Attending Clinician RENNY NAJERA Attending Clinician Unavailable Wil Childress Attending Clinician Estefania WOLF, Orin Parr Attending Clinician Unavailable ANTHONY LUNA Attending Clinician Unavailable Dylan Song DO Attending Clinician Keara Treviño MD Attending Clinician [phone], Adc Lab Attending Clinician Unavailable DANIELLE HASSAN Attending Clinician Unavailable RADAMES DE PAZ Attending Clinician Unavailable Sara Esparza Attending Clinician Radames De Paz DO Attending Clinician Heaven Ochoa MD Attending Clinician [facility] Attending Clinician Unavailable Selma Peterson MD Attending Clinician Dedra Olmstead Attending Clinician Courtney Cresw Attending Clinician JYOTI DEMARCO Admitting Clinician Unavailable Jyoti Demarco MD Admitting Clinician MASON EMERY Admitting Clinician Unavailable DUARTE GRAYSON Admitting Clinician Unavailable Payers Payer Name Policy Type Policy Number Effective Date Expiration Date Tyson JENSEN [id number] 2022 HEALTHCARE STAR 00:00:00 PLUS CAMILA [place] [id number] 2019 Common HEALTHCARE 00:00:00 [facility] Problems Condition Condition Condition Status Onset Resolution Last Treating Co mments Source Name Details Category Date Date Treatment Clinician Date Postmenopa Postmenopa Disease Active U mine usal usal 6-25 ity of bleeding bleeding 00:00: [place] [address] [place] [address] Branch Derangemen Derangemen Disease Active Overview : Univers t of t of 10-24 Formattin ity of lateral lateral 00:00: g of this [place] meniscus meniscus 00 note Medica l of right of right might be Bran ch knee knee different from the original. Added automatic ally from request for surgery [id number] History of History of Disease Active 2021-09 U mine claustroph claustroph 2-20 it y of obia obia 00:00: [place] [address] [place] [address] Branch [place] Disease Active Overview: Univer s luteum luteum 7 Formattin ity of cyst or cyst or 00:00: g of this [place] hematoma hematoma 00 note Medica l might be Branch different from the original. 3.3 L adnexal cyst 04/18/18 Irregular Irregular Disease Active Uni vers menstrual menstrual 9-12 ity of cycle cycle 00:00: [place] [address] [facility] Branch Breast Breast Disease Active Univers tenderness tenderness 9-12 it y of in female [place] [facility] Uncontroll Uncontroll Disease Active 2014-09 U mine ed type 2 ed type 2 2-02 ity of diabetes diabetes 00:00: [place] mellitus mellitus 00 Medica l Branch Dyslipidem Dyslipidem Disease Active 2014-09 U mine ia ia 2-02 ity of 00:00: [place] [address] Medical Branch Surveillan Surveillan Disease Active U nivers ce of ce of 5-13 [place] 00 [place] dical contracept contracept Br anch renzo pill renzo pill History of History of Disease Active U nivers tubal tubal -13 ity of ligation ligation 00:00: [address] Branch Essential Essential Disease Active Overview: Univers hypertensi hypertensi 02-02 Formattin ity of on on 00:00: g of this [place] 00 note Medical might be Branch different from the original. ICD10 Diagnosis Term Betting Clerk Utility Type 2 Type 2 Disease Active Overview: Univer s diabetes diabetes 02-02 Formattin ity of mellitus mellitus 00:00: g of this [place] as without without 00 note Medical complicati complicati might be Branch ons ons different from the original. ICD10 Diagnosis Term Betting Clerk Utility Depression Depression Disease Active U nivers 02-02 ity of 00:00: [place] [facility] Branch Morbid Morbid Disease Active Univers obesity obesity 02-02 ity of 00:00: [address] [id number] Panic Problem Active Common disorder Spirit [episodic - [facility] paroxysmal [facility] anxiety] [facility] [id number] Generalize Problem Active Com mon d anxiety Spirit disorder - [facility] [id number] GERD Problem Active Common without Spirit esophagiti - [facility] s [facility] [id number] Migraine Problem Active Comm on without Spirit aura and - [facility] without [facility] status [facility] migrainosu Medica l s, not Center intractabl e [id number] Type 2 Problem Active Common diabetes Spirit mellitus - [facility]I with [facility] hyperglyce [facility] [id number] Diabetic Problem Active Comm on polyneurop Spirit athy - [facility]I associated [facility] with type [facility] 2 diabetes Medica l mellitus [place] [id number] terminal gauger Problem Active Com mon (current) Spirit use of - [facility] insulin [facility] [id number] History of Problem Active Co mmon arterioven Spirit ous - CHI malformati St on (AVM) [facility] [id number] HTN, goal Problem Active Comm on below Spirit 130/80 - [facility] [id number] Current Problem Active Common moderate Spirit episode of - [facility] major [facility] depressive [facility] disorder Medical without Center prior episode [id number] Insomnia, Problem Active Com mon unspecifie Spirit d type [facility] [id number] Sickle Problem Active Common cell trait [facility] Panic Panic Disease Active Univers attacks attacks ity of [facility] Allergies, Adverse Reactions, Alerts Allergy Allergy Status Severity Reaction(s) Onset Inactive Treating Comm ents Source Name Type Date Date Clinician Insulin Propensi Active Dizziness Univ ers Glargine ty to 10-16 ity of adverse 00:00: [place] reaction 00 Medical s Branch INSULIN DRUG Active Dizziness Univer s GLARGINE INGREDI 10-16 ity of 00:00: [place] 00 Medical Branch Exenatid Propensi Active Swelling 2014-09 Univ ers e ty to 10-25 ity of Microsph adverse 00:00: [place] eres reaction Medical s Branch EXENATID DRUG Active Rash [...] Start Date Stop Date Quantity Comments Source History of Tobacco Never Smoker Comm on Spirit - Use [facility] Sex Assigned At Common Sp daniele - [facility] History SDOH University o f Alcohol Frequency [place] M edical Branch History SDOH University o f Alcohol Std Drinks [facility] History [facility] University o f Alcohol Binge [place] Medic al Branch Gender identity Universit y of [facility] Sexual orientation Univer sity of [facility] Alcohol intake 2023-03-13 2023-03-13 Ex-drinker University of 00:00:00 00:00:00 (finding) [facility] Exposure to 2023-01-29 2023-02-08 Not sure University of SARS-CoV-2 (event) 00:00:00 12:40:00 [facility] History of Social 2022-11-05 2022-11-05 Univers ity of function 00:00:00 00:00:00 [facility] Cigarettes smoked 2022-05-24 2022-05-24 Univers ity of current (pack per 00:00:00 00:00:00 ) - Reported Branch Tobacco use and 2022-05-24 2022-05-24 Smokeless Universit y of exposure 00:00:00 00:00:00 tobacco non-user [facility] dical Branch Alcohol Comment 2022-05-24 2022-05-24 occasion Universit y of 00:00:00 00:00:00 [facility] Tobacco Comment 2022-05-24 2022-05-24 Quit 20 years Univer sity of 00:00:00 00:00:00 ago, used to [place] Apprion l smoke 1.5 packs Branch a day from age 15 to 37 Smoking Status Start Date Stop Date Source Ex-smoker 2022-05-24 00:00:00 2022-05-24 00:00:[address] [facility] Never Smoker Common Spirit - [facility] Medications Ordered Filled Start Stop Current Ordering Indication Dosage Frequency Signature Comments Components Source Medication Medication Date Date Medication? Clinician (SIG) Name Name GABAPENTIN Yes [id number] TAKE 1 Univers 600 mg 7-18 TABLET BY ity of tablet 00:00: MOUTH IN [place] 00 THE Medical MORNING Branch AND AT NOON AND IN THE EVENING metFORMIN Yes [id number] 1000mg Take 2 Univers 500 mg 7-15 tablets by ity of tablet 00:00: mouth in [place] 00 the Medical morning Branch and 2 tablets in the evening. Take with meals. DICLOFENAC Yes [id number] TAKE 1 Univers 75 mg EC 6-26 TABLET BY ity of tablet 00:00: MOUTH [place] 00 EVERY Medical MORNING Branch AND EVERY EVENING WM FOR 30 DAYS DICLOFENAC 2022-0 Yes [id number] TAKE 1 Univers 75 mg EC 6-26 TABLET BY ity of tablet 00:00: MOUTH [place] 00 EVERY Medical MORNING Branch AND EVERY EVENING WM FOR 30 DAYS DICLOFENAC 2022-0 Yes [id number] TAKE 1 Univers 75 mg EC 6-26 TABLET BY ity of tablet 00:00: MOUTH [place] 00 EVERY Medical MORNING Branch AND EVERY EVENING WM FOR 30 DAYS DICLOFENAC 2022-0 Yes [id number] TAKE 1 Univers 75 mg EC 6-26 TABLET BY ity of tablet 00:00: MOUTH [place] 00 EVERY Medical MORNING Branch AND EVERY EVENING WM FOR 30 DAYS TECHLITE 2023-0 Yes [id number] USE TWICE Univers PEN NEEDLE 6-24 DAILY, ity of 32 gauge x 00:00: [place] " Nd Medical Branch TECHLITE 2023-0 Yes [id number] USE TWICE Univers PEN NEEDLE 6-24 DAILY, ity of 32 gauge x 00:00: " [place] Medical Branch TECHLITE 2023-0 Yes [id number] USE TWICE Univers PEN NEEDLE 6-24 DAILY, ity of 32 gauge x 00:00: " N[place] Medical Branch TECHLITE 2023-0 Yes [id number] USE TWICE Univers PEN NEEDLE 6-24 DAILY, ity of 32 gauge x 00:00: [place] " Medical Branch TECHLITE 2023-0 Yes [id number] USE TWICE Univers PEN NEEDLE 6-24 DAILY, ity of 32 gauge x 00:00: [place] " Medical Branch famotidine 2023-0 Yes 40mg Take 1 Unive rs 40 mg 6-21 tablet by ity of tablet 15:55: mouth in [place] [address] the Medical morning. Branch famotidine 2023-0 Yes 40mg Take 1 Unive rs 40 mg 6-21 tablet by ity of tablet 15:55: mouth in [place] [address] the Medical morning. Branch famotidine 2023-0 Yes 40mg Take 1 Unive rs 40 mg 6-21 tablet by ity of tablet 15:55: mouth in [place] [address] the Medical morning. Branch famotidine 2023-0 Yes 40mg Take 1 Unive rs 40 mg 6-21 tablet by ity of tablet 15:55: mouth in [place] [address] the Medical morning. Branch famotidine 2023-0 Yes 40mg Take 1 Unive rs 40 mg 6-21 tablet by ity of tablet 15:55: mouth in [place] [address] the Medical morning. Branch famotidine 2023-0 Yes 40mg Take 1 Unive rs 40 mg 6-21 tablet by ity of tablet 15:55: mouth in [place] [address] the Medical morning. Branch famotidine 2023-0 Yes 40mg Take 1 Unive rs 40 mg 6-21 tablet by ity of tablet 15:55: mouth in [place] [address] the Medical morning. Branch famotidine 2023-0 Yes 40mg Take 1 Unive rs 40 mg 6-21 tablet by ity of tablet 15:55: mouth in [place] [address] the Medical morning. Branch famotidine 2023-0 Yes 40mg Take 1 Unive rs 40 mg 6-21 tablet by ity of tablet 15:55: mouth in [place] 46 the Medical morning. Branch clonazePAM 2023-0 Yes [id number] 1mg Take 1 U nivers 1 mg tablet 6-19 tablet by ity of 00:00: mouth in [place] 00 the Medical morning. Branch clonazePAM 2023-0 Yes [id number] 1mg Take 1 U nivers 1 mg tablet 6-19 tablet by ity of 00:00: mouth in [place] 00 the Medical morning. Branch clonazePAM 2023-0 Yes [id number] 1mg Take 1 U nivers 1 mg tablet 6-19 tablet by ity of 00:00: mouth in [place] 00 the Medical morning. Branch clonazePAM 2023-0 Yes [id number] 1mg Take 1 U nivers 1 mg tablet 6-19 tablet by ity of 00:00: mouth in [place] the Medical morning. Branch clonazePAM 2023-0 Yes [id number] 1mg Take 1 U nivers 1 mg tablet 6-19 tablet by ity of 00:00: mouth in [place] the Medical morning. Branch clonazePAM 2023-0 Yes [id number] 1mg Take 1 U nivers 1 mg tablet 6-19 tablet by ity of 00:00: mouth in [place] the Medical morning. Branch clonazePAM 2023-0 Yes [id number] 1mg Take 1 U nivers 1 mg tablet 6-19 tablet by ity of 00:00: mouth in [place] the Medical morning. Branch clonazePAM 2023-0 Yes [id number] 1mg Take 1 U nivers 1 mg tablet 6-19 tablet by ity of 00:00: mouth in [place] 00 the Medical morning. Branch clonazePAM 2023-0 Yes [id number] 1mg Take 1 U nivers 1 mg tablet 6-19 tablet by ity of 00:00: mouth in [place] the Medical morning. Branch clonazePAM 2023-0 Yes [id number] 1mg Take 1 U nivers 1 mg tablet 6-19 tablet by ity of 00:00: mouth in [place] 00 the Medical morning. Branch clonazePAM 2023-0 Yes [id number] 1mg Take 1 U nivers 1 mg tablet 6-19 tablet by ity of 00:00: mouth in [place] the morning. Branch clonazePAM 3-0 Yes [id number] 1mg Take 1 U nivers 1 mg tablet 6-19 tablet by ity of 00:00: mouth in [place] the morning. Branch clonazePAM 3-0 Yes [id number] 1mg Take 1 U nivers 1 mg tablet 6-19 tablet by ity of 00:00: mouth in [place] the morning. Branch clonazePAM 3-0 Yes [id number] 1mg Take 1 U nivers 1 mg tablet 6-19 tablet by ity of 00:00: mouth in [place] the morning. Branch clonazePAM 3-0 Yes [id number] 1mg Take 1 U nivers 1 mg tablet 6-19 tablet by ity of 00:00: mouth in [place] the morning. Branch clonazePAM 3-0 Yes [id number] 1mg Take 1 U nivers 1 mg tablet 6-19 tablet by ity of 00:00: mouth in [place] the morning. Branch clonazePAM 2022-0 Yes [id number] 1mg Take 1 U nivers 1 mg tablet 6-19 tablet by ity of 00:00: mouth in [place] the morning. Branch clonazePAM 2022-0 Yes [id number] 1mg Take 1 U nivers 1 mg tablet 6-19 tablet by ity of 00:00: mouth in [place] the morning. Branch PIOGLITAZON 2022-0 Yes [id number] TAKE 1 Univers E 15 mg 6-15 TABLET BY ity of tablet 00:00: MOUTH IN [place] 00 THE Medical MORNING Branch PIOGLITAZON 2022-0 Yes [id number] TAKE 1 Univers E 15 mg 6-15 TABLET BY ity of tablet 00:00: MOUTH IN [place] 00 THE Medical MORNING Branch PIOGLITAZON 2022-0 Yes [id number] TAKE 1 Univers E 15 mg 6-15 TABLET BY ity of tablet 00:00: MOUTH IN [place] 00 THE Medical MORNING Branch PIOGLITAZON 2022-0 Yes [id number] TAKE 1 Univers E 15 mg 6-15 TABLET BY ity of tablet 00:00: MOUTH IN [place] 00 THE Medical MORNING Branch PIOGLITAZON 2022-0 Yes [id number] TAKE 1 Univers E 15 mg 6-15 TABLET BY ity of tablet 00:00: MOUTH IN [place] 00 THE Medical MORNING Branch PIOGLITAZON 2022-0 Yes [id number] TAKE 1 Univers E 15 mg 6-15 TABLET BY ity of tablet 00:00: MOUTH IN [place] 00 THE Medical MORNING Branch PIOGLITAZON 2022-0 Yes [id number] TAKE 1 Univers E 15 mg 6-15 TABLET BY ity of tablet 00:00: MOUTH IN [place] 00 THE Medical MORNING Branch PIOGLITAZON 2022-0 Yes [id number] TAKE 1 Univers E 15 mg 6-15 TABLET BY ity of tablet 00:00: MOUTH IN [place] 00 THE Medical MORNING Branch PIOGLITAZON 2022-0 Yes [id number] TAKE 1 Univers E 15 mg 6-15 TABLET BY ity of tablet 00:00: MOUTH IN [place] 00 THE Medical MORNING Branch PIOGLITAZON 2022-0 Yes [id number] TAKE 1 Univers E 15 mg 6-15 TABLET BY ity of tablet 00:00: MOUTH IN [place] THE Medical MORNING Branch propranoloL 2022-0 Yes [id number] 10mg Take 1 Univers 10 mg 6-05 tablet by ity of tablet 00:00: mouth in [place] the Medical morning Branch and 1 tablet in the evening. May take additional tablet as needed for anxiety venlafaxine 2022-0 Yes [id number] 75mg Take 1 Univers XR 75 mg 24 6-05 capsule by it y of hr capsule 00:00: mouth [place] 00 daily with Medical breakfast. Branch propranoloL 2022-0 Yes [id number] 10mg Take 1 Univers 10 mg 6-05 tablet by ity of tablet 00:00: mouth in [place] the Medical morning Branch and 1 tablet in the evening. May take additional tablet as needed for anxiety venlafaxine 2022-0 Yes [id number] 75mg Take 1 Univers XR 75 mg 24 6-05 capsule by it y of hr capsule 00:00: mouth [place] 00 daily with Medical breakfast. Branch propranoloL 3-0 Yes [id number] 10mg Take 1 Univers 10 mg 6-05 tablet by ity of tablet 00:00: mouth in [place] 00 the Medical morning Branch and 1 tablet in the evening. May take additional tablet as needed for anxiety venlafaxine 2022-0 Yes [id number] 75mg Take 1 Univers XR 75 mg 24 6-05 capsule by it y of hr capsule 00:00: mouth [place] 00 daily with Medical breakfast. Branch propranoloL 2023-0 Yes [id number] 10mg Take 1 Univers 10 mg 6-05 tablet by ity of tablet 00:00: mouth in [place] 00 the Medical morning Branch and 1 tablet in the evening. May take additional tablet as needed for anxiety venlafaxine 2023-0 Yes [id number] 75mg Take 1 Univers XR 75 mg 24 6-05 capsule by it y of hr capsule 00:00: mouth [place] 00 daily with Medical breakfast. Branch propranoloL 2023-0 Yes [id number] 10mg Take 1 Univers 10 mg 6-05 tablet by ity of tablet 00:00: mouth in [place] the Medical morning Branch and 1 tablet in the evening. May take additional tablet as needed for anxiety venlafaxine 3-0 Yes [id number] 75mg Take 1 Univers XR 75 mg 24 6-05 capsule by it y of hr capsule 00:00: mouth [place] 00 daily with Medical breakfast. Branch propranoloL 2023-0 Yes [id number] 10mg Take 1 Univers 10 mg 6-05 tablet by ity of tablet 00:00: mouth in [place] the Medical morning Branch and 1 tablet in the evening. May take additional tablet as needed for anxiety venlafaxine 3-0 Yes [id number] 75mg Take 1 Univers XR 75 mg 24 6-05 capsule by it y of hr capsule 00:00: mouth [place] 00 daily with Medical breakfast. Branch propranoloL 2023-0 Yes [id number] 10mg Take 1 Univers 10 mg 6-05 tablet by ity of tablet 00:00: mouth in [place] the Medical morning Branch and 1 tablet in the evening. May take additional tablet as needed for anxiety venlafaxine 3-0 Yes [id number] 75mg Take 1 Univers XR 75 mg 24 6-05 capsule by it y of hr capsule 00:00: mouth [place] 00 daily with Medical breakfast. Branch propranoloL 2023-0 Yes [id number] 10mg Take 1 Univers 10 mg 6-05 tablet by ity of tablet 00:00: mouth in [place] 00 the Medical morning Branch and 1 tablet in the evening. May take additional tablet as needed for anxiety venlafaxine 2023-0 Yes [id number] 75mg Take 1 Univers XR 75 mg 24 6-05 capsule by it y of hr capsule 00:00: mouth [place] 00 daily with Medical breakfast. Branch propranoloL 2023-0 Yes [id number] 10mg Take 1 Univers 10 mg 6-05 tablet by ity of tablet 00:00: mouth in [place] 00 the Medical morning Branch and 1 tablet in the evening. May take additional tablet as needed for anxiety venlafaxine 2023-0 Yes [id number] 75mg Take 1 Univers XR 75 mg 24 6-05 capsule by it y of hr capsule 00:00: mouth [place] 00 daily with Medical breakfast. Branch propranoloL 2023-0 Yes [id number] 10mg Take 1 Univers 10 mg 6-05 tablet by ity of tablet 00:00: mouth in [place] 00 the Medical morning Branch and 1 tablet in the evening. May take additional tablet as needed for anxiety venlafaxine 2023-0 Yes [id number] 75mg Take 1 Univers XR 75 mg 24 6-05 capsule by it y of hr capsule 00:00: mouth [place] 00 daily with Medical breakfast. Branch propranoloL 2023-0 Yes [id number] 10mg Take 1 Univers 10 mg 6-05 tablet by ity of tablet 00:00: mouth in [place] the Medical morning Branch and 1 tablet in the evening. May take additional tablet as needed for anxiety venlafaxine 2023-0 Yes [id number] 75mg Take 1 Univers XR 75 mg 24 6-05 capsule by it y of hr capsule 00:00: mouth [place] 00 daily with Medical breakfast. Branch propranoloL 2023-0 Yes [id number] 10mg Take 1 Univers 10 mg 6-05 tablet by ity of tablet 00:00: mouth in [place] the Medical morning Branch and 1 tablet in the evening. May take additional tablet as needed for anxiety venlafaxine 2023-0 Yes [id number] 75mg Take 1 Univers XR 75 mg 24 6-05 capsule by it y of hr capsule 00:00: mouth [place] 00 daily with Medical breakfast. Branch propranoloL 2023-0 Yes [id number] 10mg Take 1 Univers 10 mg 6-05 tablet by ity of tablet 00:00: mouth in [place] 00 the Medical morning Branch and 1 tablet in the evening. May take additional tablet as needed for anxiety venlafaxine 2023-0 Yes [id number] 75mg Take 1 Univers XR 75 mg 24 6-05 capsule by it y of hr capsule 00:00: mouth [place] 00 daily with Medical breakfast. Branch propranoloL 2023-0 Yes [id number] 10mg Take 1 Univers 10 mg 6-05 tablet by ity of tablet 00:00: mouth in [place] the Medical morning Branch and 1 tablet in the evening. May take additional tablet as needed for anxiety venlafaxine 3-0 Yes [id number] 75mg Take 1 Univers XR 75 mg 24 6-05 capsule by it y of hr capsule 00:00: mouth [place] 00 daily with Medical breakfast. Branch propranoloL 2023-0 Yes [id number] 10mg Take 1 Univers 10 mg 6-05 tablet by ity of tablet 00:00: mouth in [place] 00 the Medical morning Branch and 1 tablet in the evening. May take additional tablet as needed for anxiety venlafaxine 3-0 Yes [id number] 75mg Take 1 Univers XR 75 mg 24 6-05 capsule by it y of hr capsule 00:00: mouth [place] 00 daily with Medical breakfast. Branch propranoloL 2023-0 Yes [id number] 10mg Take 1 Univers 10 mg 6-05 tablet by ity of tablet 00:00: mouth in [place] the Medical morning Branch and 1 tablet in the evening. May take additional tablet as needed for anxiety venlafaxine 3-0 Yes [id number] 75mg Take 1 Univers XR 75 mg 24 6-05 capsule by it y of hr capsule 00:00: mouth [place] 00 daily with Medical breakfast. Branch propranoloL 3-0 Yes [id number] 10mg Take 1 Univers 10 mg 6-05 tablet by ity of tablet 00:00: mouth in [place] the [facility] morning Branch and 1 tablet in the evening. May take additional tablet as needed for anxiety venlafaxine 3-0 Yes [id number] 75mg Take 1 Univers XR 75 mg 24 6-05 capsule by it y of hr capsule 00:00: mouth [place] 00 daily with Medical breakfast. Branch propranoloL 2023-0 Yes [id number] 10mg Take 1 Univers 10 mg 6-05 tablet by ity of tablet 00:00: mouth in [place] 00 the Medical morning Branch and 1 tablet in the evening. May take additional tablet as needed for anxiety venlafaxine 3-0 Yes [id number] 75mg Take 1 Univers XR 75 mg 24 6-05 capsule by it y of hr capsule 00:00: mouth [place] 00 daily with Medical breakfast. Branch celecoxib 2023-0 2023- Yes [id number] 200mg Take 1 Univers (CELEBREX) 02-22 07-03 9100 capsule by it y of 200 mg 00:00: 04:59 mouth in [place] capsule 00 :00 the Medical morning Branch for 30 days. celecoxib 2022- Yes [id number] 200mg Take 1 Univers (CELEBREX) 02-22 9100 capsule by it y of 200 mg 00:00: 04:59 mouth in [place] capsule 00 :00 the Medical morning Branch for 30 days. celecoxib 2022-2022- Yes [id number] 200mg Take 1 Univers (CELEBREX) 02-22 9100 capsule by it y of 200 mg 00:00: 04:59 mouth in [place] capsule 00 :00 the Medical morning Branch for 30 days. celecoxib 2022- Yes [id number] 200mg Take 1 Univers (CELEBREX) 02-22 9100 capsule by it y of 200 mg 00:00: 04:59 mouth in [place] capsule 00 :[address] [facility] morning Branch for 30 days. celecoxib 2022-2022- Yes [id number] 200mg Take 1 Univers (CELEBREX) 02-22 9100 capsule by it y of 200 mg 00:00: 04:59 mouth in [place] capsule 00 :[address] [facility] morning Branch for 30 days. celecoxib 2022- Yes [id number] 200mg Take 1 [facility] (CELEBREX) 02-22 9100 capsule by it y of 200 mg 00:00: 04:59 mouth in [place] capsule 00 :[address] [facility] morning Branch for 30 days. celecoxib 2022-2022- Yes [id number] 200mg Take 1 [facility] (CELEBREX) 02-22 9100 capsule by it y of 200 mg 00:00: 04:59 mouth in [place] capsule 00 :00 the Medical morning Branch for 30 days. celecoxib 2022- Yes [id number] 200mg Take 1 [facility] (CELEBREX) 02-22 9100 capsule by it y of 200 mg 00:00: 04:59 mouth in [place] capsule 00 :00 the Medical morning Branch for 30 days. celecoxib 2022- Yes [id number] 200mg Take 1 [facility] (CELEBREX) 02-22 9100 capsule by it y of 200 mg 00:00: 04:59 mouth in [place] capsule 00 :00 the Medical morning Branch for 30 days. celecoxib 2022- Yes [id number] 200mg Take 1 [facility] (CELEBREX) 02-22 9100 capsule by it y of 200 mg 00:00: 04:59 mouth in [place] capsule 00 :00 the Medical morning Branch for 30 days. celecoxib 2022- Yes [id number] 200mg Take 1 [facility] (CELEBREX) 02-22 9100 capsule by it y of 200 mg 00:00: 04:59 mouth in [place] capsule 00 :00 the Medical morning Branch for 30 days. celecoxib 2022- Yes [id number] 200mg Take 1 [facility] (CELEBREX) 02-22 9100 capsule by it y of 200 mg 00:00: 04:59 mouth in [place] capsule 00 :00 the Medical morning Branch for 30 days. celecoxib 2022- Yes [id number] 200mg Take 1 [facility] (CELEBREX) 02-22 9100 capsule by it y of 200 mg 00:00: 04:59 mouth in [place] capsule 00 :[address] [facility] morning Branch for 30 days. celecoxib 2022- Yes [id number] 200mg Take 1 [facility] (CELEBREX) 02-22 9100 capsule by it y of 200 mg 00:00: 04:59 mouth in [place] capsule 00 :[address] [facility] morning Branch for 30 days. celecoxib 2022- Yes [id number] 200mg Take 1 [facility] (CELEBREX) 02-22 9100 capsule by it y of 200 mg 00:00: 04:59 mouth in [place] capsule 00 :00 the Medical morning Branch for 30 days. celecoxib 2022- Yes [id number] 200mg Take 1 [facility] (CELEBREX) 02-22 9100 capsule by it y of 200 mg 00:00: 04:59 mouth in [place] capsule 00 :00 the Medical morning Branch for 30 days. celecoxib 2022- Yes [id number] 200mg Take 1 [facility] (CELEBREX) 02-22 9100 capsule by it y of 200 mg 00:00: 04:59 mouth in [place] capsule 00 :00 the Medical morning Branch for 30 days. celecoxib 2022- Yes [id number] 200mg Take 1 [facility] (CELEBREX) 02-22 9100 capsule by it y of 200 mg 00:00: 04:59 mouth in [place] capsule 00 :00 the Medical morning Branch for 30 days. blood sugar 2022-0 Yes [id number] USE THREE [facility] diagnostic 5-30 TIMES ity of (TRUE 00:00: DAILY [place] [facility]RI[facility] 00 DIRECTED Medical GLUCOSE Branch TEST STRIP) strip blood sugar 3-0 Yes [id number] USE THREE [facility] diagnostic 5-30 TIMES ity of (TRUE 00:00: DAILY [place] [facility]RI[facility] 00 DIRECTED Medical GLUCOSE Branch TEST STRIP) strip blood sugar 3-0 Yes [id number] USE THREE [facility] diagnostic 5-30 TIMES ity of (TRUE 00:00: DAILY [place] METRI[facility] 00 DIRECTED Medical GLUCOSE Branch TEST STRIP) strip blood sugar 2022-0 Yes [id number] USE THREE [facility] diagnostic 5-30 TIMES ity of (TRUE 00:00: DAILY [place] METRIX 00 DIRECTED Medical GLUCOSE Branch TEST STRIP) strip blood sugar 3-0 Yes [id number] USE THREE [facility] diagnostic 5-30 TIMES ity of (TRUE 00:00: DAILY [place] METRI[facility] 00 DIRECTED Medical GLUCOSE Branch TEST STRIP) strip blood sugar 3-0 Yes [id number] USE THREE [facility] diagnostic 5-30 TIMES ity of (TRUE 00:00: DAILY [place] METRI[facility] 00 DIRECTED Medical GLUCOSE Branch TEST STRIP) strip blood sugar 3-0 Yes [id number] USE THREE [facility] diagnostic 5-30 TIMES ity of (TRUE 00:00: DAILY [place] METRIX 00 DIRECTED Medical GLUCOSE Branch TEST STRIP) strip blood sugar 3-0 Yes [id number] USE THREE [facility] diagnostic 5-30 TIMES ity of (TRUE 00:00: DAILY [place] METRI[facility] 00 DIRECTED Medical GLUCOSE Branch TEST STRIP) strip blood sugar 3-0 Yes [id number] USE THREE [facility] diagnostic 5-30 TIMES ity of (TRUE 00:00: DAILY [place] METRI[facility] 00 DIRECTED Medical GLUCOSE Branch TEST STRIP) strip blood sugar 3-0 Yes [id number] USE THREE [facility] diagnostic 5-30 TIMES ity of (TRUE 00:00: DAILY [place] METRI[facility] 00 DIRECTED Medical GLUCOSE Branch TEST STRIP) strip blood sugar 3-0 Yes [id number] USE THREE [facility] diagnostic 5-30 TIMES ity of (TRUE 00:00: DAILY [place] METRIX 00 DIRECTED Medical GLUCOSE Branch TEST STRIP) strip blood sugar 2022-0 Yes [id number] USE THREE [facility] diagnostic 5-30 TIMES ity of (TRUE 00:00: DAILY [place] METRIX 00 DIRECTED Medical GLUCOSE Branch TEST STRIP) strip blood sugar 2022-0 Yes [id number] USE THREE [facility] diagnostic 5-30 TIMES ity of (TRUE 00:00: DAILY [place] METRI[facility] 00 DIRECTED Medical GLUCOSE Branch TEST STRIP) strip blood sugar 2022-0 Yes [id number] USE THREE [facility] diagnostic 5-30 TIMES ity of (TRUE 00:00: DAILY [place] METRI[facility] 00 DIRECTED Medical GLUCOSE Branch TEST STRIP) strip blood sugar 2022-0 Yes [id number] USE THREE [facility] diagnostic 5-30 TIMES ity of (TRUE 00:00: DAILY [place] METRIX 00 DIRECTED Medical GLUCOSE Branch TEST STRIP) strip blood sugar 2022-0 Yes [id number] USE THREE [facility] diagnostic 5-30 TIMES ity of (TRUE 00:00: DAILY [place] METRIX 00 DIRECTED Medical GLUCOSE Branch TEST STRIP) strip blood sugar 2022-0 Yes [id number] USE THREE [facility] diagnostic 5-30 TIMES ity of (TRUE 00:00: DAILY [place] METRIX 00 DIRECTED Medical GLUCOSE Branch TEST STRIP) strip blood sugar 2022-0 Yes [id number] USE THREE [facility] diagnostic 5-30 TIMES ity of (TRUE 00:00: DAILY [place] METRIX 00 DIRECTED Medical GLUCOSE Branch TEST STRIP) strip blood sugar 2022-0 Yes [id number] USE THREE [facility] diagnostic 5-30 TIMES ity of (TRUE 00:00: DAILY [place] METRIX 00 DIRECTED Medical GLUCOSE Branch TEST STRIP) strip blood sugar 3-0 Yes [id number] USE THREE [facility] diagnostic 5-30 TIMES ity of (TRUE 00:00: DAILY [place] METRIX 00 DIRECTED Medical GLUCOSE Branch TEST STRIP) strip blood sugar 2022-0 Yes [id number] USE THREE [facility] diagnostic 5-30 TIMES ity of (TRUE 00:00: DAILY [place] METRIX 00 DIRECTED Medical GLUCOSE Branch TEST STRIP) strip blood sugar 2022-0 Yes [id number] USE THREE [facility] diagnostic 5-30 TIMES ity of (TRUE 00:00: DAILY [place] METRIX 00 DIRECTED Medical GLUCOSE Branch TEST STRIP) strip DICLOFENAC 2022-0 Yes [id number] TAKE 1 [facility] 75 mg EC 5-23 TABLET BY ity of tablet 00:00: MOUTH [place] 00 EVERY Medical MORNING Branch AND EVERY EVENING WM FOR 30 DAYS DICLOFENAC 2022-0 Yes [id number] TAKE 1 [facility] 75 mg EC 5-23 TABLET BY ity of tablet 00:00: MOUTH [place] 00 EVERY Medical MORNING Branch AND EVERY EVENING WM FOR 30 DAYS DICLOFENAC 2022-0 Yes [id number] TAKE 1 [facility] 75 mg EC 5-23 TABLET BY ity of tablet 00:00: MOUTH [place] 00 EVERY Medical MORNING Branch AND EVERY EVENING WM FOR 30 DAYS DICLOFENAC 2022-0 Yes [id number] TAKE 1 [facility] 75 mg EC 5-23 TABLET BY ity of tablet 00:00: MOUTH [place] 00 EVERY Medical MORNING Branch AND EVERY EVENING WM FOR 30 DAYS DICLOFENAC 2022-0 Yes [id number] TAKE 1 [facility] 75 mg EC 5-23 TABLET BY ity of tablet 00:00: MOUTH [place] 00 EVERY Medical MORNING Branch AND EVERY EVENING WM FOR 30 DAYS DICLOFENAC 2022-0 Yes [id number] TAKE 1 [facility] 75 mg EC 5-23 TABLET BY ity of tablet 00:00: MOUTH [place] 00 EVERY Medical MORNING Branch AND EVERY EVENING WM FOR 30 DAYS DICLOFENAC 2022-0 Yes [id number] TAKE 1 [facility] 75 mg EC 5-23 TABLET BY ity of tablet 00:00: MOUTH [place] 00 EVERY Medical MORNING Branch AND EVERY EVENING WM FOR 30 DAYS DICLOFENAC 2022-0 Yes [id number] TAKE 1 [facility] 75 mg EC 5-23 TABLET BY ity of tablet 00:00: MOUTH [place] 00 EVERY Medical MORNING Branch AND EVERY EVENING WM FOR 30 DAYS DICLOFENAC 2022-0 Yes [id number] TAKE 1 [facility] 75 mg EC 5-23 TABLET BY ity of tablet 00:00: MOUTH [place] 00 EVERY Medical MORNING Branch AND EVERY EVENING WM FOR 30 DAYS DICLOFENAC 2022-0 Yes [id number] TAKE 1 [facility] 75 mg EC 5-23 TABLET BY ity of tablet 00:00: MOUTH [place] 00 EVERY Medical MORNING Branch AND EVERY EVENING WM FOR 30 DAYS DICLOFENAC 2022-0 Yes [id number] TAKE 1 [facility] 75 mg EC 5-23 TABLET BY ity of tablet 00:00: MOUTH [place] 00 EVERY Medical MORNING Branch AND EVERY EVENING WM FOR 30 DAYS DICLOFENAC 2022-0 Yes [id number] TAKE 1 [facility] 75 mg EC 5-23 TABLET BY ity of tablet 00:00: MOUTH [place] 00 EVERY Medical MORNING Branch AND EVERY EVENING WM FOR 30 DAYS DICLOFENAC 2022-0 Yes [id number] TAKE 1 [facility] 75 mg EC 5-23 TABLET BY ity of tablet 00:00: MOUTH [place] 00 EVERY Medical MORNING Branch AND EVERY EVENING WM FOR 30 DAYS DICLOFENAC 2022-0 Yes [id number] TAKE 1 [facility] 75 mg EC 5-23 TABLET BY ity of tablet 00:00: MOUTH [place] 00 EVERY Medical MORNING Branch AND EVERY EVENING WM FOR 30 DAYS DICLOFENAC 2022-0 Yes [id number] TAKE 1 [facility] 75 mg EC 5-23 TABLET BY ity of tablet 00:00: MOUTH [place] 00 EVERY Medical MORNING Branch AND EVERY EVENING WM FOR 30 DAYS DICLOFENAC 2022-0 Yes [id number] TAKE 1 [facility] 75 mg EC 5-23 TABLET BY ity of tablet 00:00: MOUTH [place] 00 EVERY Medical MORNING Branch AND EVERY EVENING WM FOR 30 DAYS DICLOFENAC 2022-0 Yes [id number] TAKE 1 [facility] 75 mg EC 5-23 TABLET BY ity of tablet 00:00: MOUTH [place] 00 EVERY Medical MORNING Branch AND EVERY EVENING WM FOR 30 DAYS DICLOFENAC 2022-0 Yes [id number] TAKE 1 [facility] 75 mg EC 5-23 TABLET BY ity of tablet 00:00: MOUTH [place] 00 EVERY Medical MORNING Branch AND EVERY EVENING WM FOR 30 DAYS DICLOFENAC 2022-0 Yes [id number] TAKE 1 [facility] 75 mg EC 5-23 TABLET BY ity of tablet 00:00: MOUTH [place] 00 EVERY Medical MORNING Branch AND EVERY EVENING WM FOR 30 DAYS DICLOFENAC 2022-0 202- No [id number] TAKE 1 [facility] 75 mg EC 5-23 06-26 TABLET BY ity o f tablet 00:00: 00:00 MOUTH [place] 00 :00 EVERY Medical MORNING Branch AND EVERY EVENING WM FOR 30 DAYS EZETIMIBE 2022-0 Yes [id number] 10mg TAKE 1 [facility] nivers 10 mg 5-22 TABLET BY ity of tablet 00:00: MOUTH [place] 00 DAILY Medical Branch EZETIMIBE 3-0 Yes [id number] 10mg TAKE 1 U nivers 10 mg 5-22 TABLET BY ity of tablet 00:00: MOUTH [place] 00 DAILY Medical Branch VENLAFAXINE 2022-0 Yes [id number] 75mg TAKE 1 [facility] XR 75 mg 24 5-22 CAPSULE BY it y of hr capsule 00:00: MOUTH [place] 00 DAILY WITH Medical BREAKFAST Branch clonazePAM 2022-0 Yes [id number] 1mg TAKE 1 U nivers 1 mg tablet 5-22 TABLET BY ity of 00:00: MOUTH IN [place] 00 THE Medical MORNING Branch clonazePAM 2023-0 Yes [id number] 1mg TAKE 1 U nivers 1 mg tablet 5-22 TABLET BY ity of 00:00: MOUTH IN [place] 00 THE Medical MORNING Branch EZETIMIBE 3-0 Yes [id number] 10mg TAKE 1 U nivers 10 mg 5-22 TABLET BY ity of tablet 00:00: MOUTH [place] 00 DAILY Medical Branch VENLAFAXINE 3-0 Yes [id number] 75mg TAKE 1 [facility] XR 75 mg 24 5-22 CAPSULE BY it y of hr capsule 00:00: MOUTH [place] 00 DAILY WITH Medical BREAKFAST Branch SITagliptin 3-0 Yes [id number] 100mg Take 1 [facility] phosphate 5-22 tablet by ity o f 100 mg 00:00: mouth in [place] tablet 00 the Medical morning. Branch clonazePAM 2022-0 Yes [id number] 1mg TAKE 1 U nivers 1 mg tablet 5-22 TABLET BY ity of 00:00: MOUTH IN [place] 00 THE Medical MORNING Branch EZETIMIBE 3-0 Yes [id number] 10mg TAKE 1 U nivers 10 mg 5-22 TABLET BY ity of tablet 00:00: MOUTH [place] 00 DAILY Medical Branch VENLAFAXINE 3-0 Yes [id number] 75mg TAKE 1 [facility] XR 75 mg 24 5-22 CAPSULE BY it y of hr capsule 00:00: MOUTH [place] 00 DAILY WITH Medical BREAKFAST Branch SITagliptin 3-0 Yes [id number] 100mg Take 1 [facility] phosphate 5-22 tablet by ity o f 100 mg 00:00: mouth in [place] tablet 00 the Medical morning. Branch clonazePAM 3-0 Yes [id number] 1mg TAKE 1 U nivers 1 mg tablet 5-22 TABLET BY ity of 00:00: MOUTH IN [place] 00 THE Medical MORNING Branch EZETIMIBE 3-0 Yes [id number] 10mg TAKE 1 U nivers 10 mg 5-22 TABLET BY ity of tablet 00:00: MOUTH [place] 00 DAILY Medical Branch VENLAFAXINE 3-0 Yes [id number] 75mg TAKE 1 [facility] XR 75 mg 24 5-22 CAPSULE BY it y of hr capsule 00:00: MOUTH [place] 00 DAILY WITH Medical BREAKFAST Branch SITagliptin 3-0 Yes [id number] 100mg Take 1 [facility] phosphate 5-22 tablet by ity o f 100 mg 00:00: mouth in [place] tablet 00 the Medical morning. Branch clonazePAM 3-0 Yes [id number] 1mg TAKE 1 U nivers 1 mg tablet 5-22 TABLET BY ity of 00:00: MOUTH IN [place] 00 THE Medical MORNING Branch EZETIMIBE 3-0 Yes [id number] 10mg TAKE 1 U nivers 10 mg 5-22 TABLET BY ity of tablet 00:00: MOUTH [place] 00 DAILY Medical Branch VENLAFAXINE 3-0 Yes [id number] 75mg TAKE 1 [facility] XR 75 mg 24 5-22 CAPSULE BY it y of hr capsule 00:00: MOUTH [place] 00 DAILY WITH Medical BREAKFAST Branch SITagliptin 3-0 Yes [id number] 100mg Take 1 [facility] phosphate 5-22 tablet by ity o f 100 mg 00:00: mouth in [place] tablet 00 the Medical morning. Branch clonazePAM 3-0 Yes [id number] 1mg TAKE 1 U nivers 1 mg tablet 5-22 TABLET BY ity of 00:00: MOUTH IN [place] 00 THE Medical MORNING Branch EZETIMIBE 3-0 Yes [id number] 10mg TAKE 1 U nivers 10 mg 5-22 TABLET BY ity of tablet 00:00: MOUTH [place] 00 DAILY Medical Branch VENLAFAXINE 3-0 Yes [id number] 75mg TAKE 1 [facility] XR 75 mg 24 5-22 CAPSULE BY it y of hr capsule 00:00: MOUTH [place] 00 DAILY WITH Medical BREAKFAST Branch SITagliptin 3-0 Yes [id number] 100mg Take 1 [facility] phosphate 5-22 tablet by ity o f 100 mg 00:00: mouth in [place] tablet 00 the Medical morning. Branch EZETIMIBE 3-0 Yes [id number] 10mg TAKE 1 U nivers 10 mg 5-22 TABLET BY ity of tablet 00:00: MOUTH [place] 00 DAILY Medical Branch SITagliptin 3-0 Yes [id number] 100mg Take 1 [facility] phosphate 5-22 tablet by ity o f 100 mg 00:00: mouth in [place] tablet 00 the Medical morning. Branch EZETIMIBE 3-0 Yes [id number] 10mg TAKE 1 U nivers 10 mg 5-22 TABLET BY ity of tablet 00:00: MOUTH [place] 00 DAILY Medical Branch SITagliptin 3-0 Yes [id number] 100mg Take 1 [facility] phosphate 5-22 tablet by ity o f 100 mg 00:00: mouth in [place] tablet 00 the Medical morning. Branch EZETIMIBE 3-0 Yes [id number] 10mg TAKE 1 U nivers 10 mg 5-22 TABLET BY ity of tablet 00:00: MOUTH [place] 00 DAILY Medical Branch SITagliptin 2023-0 Yes [id number] 100mg Take 1 [facility] phosphate 5-22 tablet by ity o f 100 mg 00:00: mouth in [place] tablet 00 the Medical morning. Branch EZETIMIBE 2023-0 Yes [id number] 10mg TAKE 1 U nivers 10 mg 5-22 TABLET BY ity of tablet 00:00: MOUTH [place] 00 DAILY Medical Branch SITagliptin 2023-0 Yes [id number] 100mg Take 1 [facility] phosphate 5-22 tablet by ity o f 100 mg 00:00: mouth in [place] tablet 00 the Medical morning. Branch EZETIMIBE 2023-0 Yes [id number] 10mg TAKE 1 U nivers 10 mg 5-22 TABLET BY ity of tablet 00:00: MOUTH [place] 00 DAILY Medical Branch SITagliptin 2023-0 Yes [id number] 100mg Take 1 [facility] phosphate 5-22 tablet by ity o f 100 mg 00:00: mouth in [place] tablet 00 the Medical morning. Branch EZETIMIBE 2023-0 Yes [id number] 10mg TAKE 1 U nivers 10 mg 5-22 TABLET BY ity of tablet 00:00: MOUTH [place] 00 DAILY Medical Branch SITagliptin 2023-0 Yes [id number] 100mg Take 1 [facility] phosphate 5-22 tablet by ity o f 100 mg 00:00: mouth in [place] tablet 00 the Medical morning. Branch EZETIMIBE 2023-0 Yes [id number] 10mg TAKE 1 U nivers 10 mg 5-22 TABLET BY ity of tablet 00:00: MOUTH [place] 00 DAILY Medical Branch SITagliptin 2023-0 Yes [id number] 100mg Take 1 [facility] phosphate 5-22 tablet by ity o f 100 mg 00:00: mouth in [place] tablet 00 the Medical morning. Branch EZETIMIBE 2023-0 Yes [id number] 10mg TAKE 1 U nivers 10 mg 5-22 TABLET BY ity of tablet 00:00: MOUTH [place] 00 DAILY Medical Branch SITagliptin 2023-0 Yes [id number] 100mg Take 1 [facility] phosphate 5-22 tablet by ity o f 100 mg 00:00: mouth in [place] tablet 00 the Medical morning. Branch EZETIMIBE 2023-0 Yes [id number] 10mg TAKE 1 [facility] nivers 10 mg 5-22 TABLET BY ity of tablet 00:00: MOUTH [place] 00 DAILY Medical Branch SITagliptin 2023-0 Yes [id number] 100mg Take 1 [facility] phosphate 5-22 tablet by ity o f 100 mg 00:00: mouth in [place] tablet 00 the Medical morning. Branch EZETIMIBE 2023-0 Yes [id number] 10mg TAKE 1 [facility] nivers 10 mg 5-22 TABLET BY ity of tablet 00:00: MOUTH [place] 00 DAILY Medical Branch SITagliptin 2023-0 Yes [id number] 100mg Take 1 [facility] phosphate 5-22 tablet by ity o f 100 mg 00:00: mouth in [place] tablet 00 the Medical morning. Branch EZETIMIBE 2023-0 Yes [id number] 10mg TAKE 1 U nivers 10 mg 5-22 TABLET BY ity of tablet 00:00: MOUTH [place] 00 DAILY Medical Branch SITagliptin 2023-0 Yes [id number] 100mg Take 1 [facility] phosphate 5-22 tablet by ity o f 100 mg 00:00: mouth in [place] tablet 00 the Medical morning. Branch EZETIMIBE 2023-0 Yes [id number] 10mg TAKE 1 U nivers 10 mg 5-22 TABLET BY ity of tablet 00:00: MOUTH [place] 00 DAILY Medical Branch SITagliptin 2023-0 Yes [id number] 100mg Take 1 [facility] phosphate 5-22 tablet by ity o f 100 mg 00:00: mouth in [place] tablet 00 the Medical morning. Branch EZETIMIBE 2023-0 Yes [id number] 10mg TAKE 1 [facility] nivers 10 mg 5-22 TABLET BY ity of tablet 00:00: MOUTH [place] 00 DAILY Medical Branch SITagliptin 2023-0 Yes [id number] 100mg Take 1 [facility] phosphate 5-22 tablet by ity o f 100 mg 00:00: mouth in [place] tablet 00 the Medical morning. Branch EZETIMIBE 2023-0 Yes [id number] 10mg TAKE 1 [facility] nivers 10 mg 5-22 TABLET BY ity of tablet 00:00: MOUTH [place] 00 DAILY Medical Branch SITagliptin 2023-0 Yes [id number] 100mg Take 1 [facility] phosphate 5-22 tablet by ity o f 100 mg 00:00: mouth in [place] tablet 00 the Medical morning. Branch EZETIMIBE 2023-0 Yes [id number] 10mg TAKE 1 [facility] nivers 10 mg 5-22 TABLET BY ity of tablet 00:00: MOUTH [place] 00 DAILY Medical Branch SITagliptin 3-0 Yes [id number] 100mg Take 1 [facility] phosphate 5-22 tablet by ity o f 100 mg 00:00: mouth in [place] tablet 00 the Medical morning. Branch EZETIMIBE 3-0 Yes [id number] 10mg TAKE 1 [facility] nivers 10 mg 5-22 TABLET BY ity of tablet 00:00: MOUTH [place] 00 DAILY Medical Branch SITagliptin 3-0 Yes [id number] 100mg Take 1 [facility] phosphate 5-22 tablet by ity o f 100 mg 00:00: mouth in [place] tablet 00 the Medical morning. Branch EZETIMIBE 3-0 Yes [id number] 10mg TAKE 1 [facility] nivers 10 mg 5-22 TABLET BY ity of tablet 00:00: MOUTH [place] 00 DAILY Medical Branch SITagliptin 3-0 Yes [id number] 100mg Take 1 [facility] phosphate 5-22 tablet by ity o f 100 mg 00:00: mouth in [place] tablet 00 the Medical morning. Branch EZETIMIBE 2022-0 Yes [id number] 10mg TAKE 1 [facility] nivers 10 mg 5-22 TABLET BY ity of tablet 00:00: MOUTH [place] 00 DAILY Medical Branch SITagliptin 3-0 Yes [id number] 100mg Take 1 [facility] phosphate 5-22 tablet by ity o f 100 mg 00:00: mouth in [place] tablet 00 the Medical morning. Branch EZETIMIBE 2022-0 Yes [id number] 10mg TAKE 1 U nivers 10 mg 5-22 TABLET BY ity of tablet 00:00: MOUTH [place] 00 DAILY Medical Branch SITagliptin 3-0 Yes [id number] 100mg Take 1 [facility] phosphate 5-22 tablet by ity o f 100 mg 00:00: mouth in [place] tablet 00 the Medical morning. Branch clonazePAM 2022-0 2022- No [id number] 1mg TAKE 1 [facility] 1 mg tablet -14 03-05 TABLET BY it y of 00:00: 00:00 MOUTH IN [place] 00 :00 THE Medical MORNING Branch VENLAFAXINE 2022-0 2022- No [id number] 75mg TAKE 1 [facility] XR 75 mg 24 5-14 03-05 CAPSULE BY i ty of hr capsule 00:00: 00:00 MOUTH [place] 00 :00 DAILY WITH Medical BREAKFAST Branch clonazePAM 2022-0 2022- No [id number] 1mg TAKE 1 [facility] 1 mg tablet 5-22 06-05 TABLET BY it y of 00:00: 00:00 MOUTH IN [place] 00 :00 THE Medical MORNING Branch VENLAFAXINE 2023-0 3- No [id number] 75mg TAKE 1 [facility] XR 75 mg 24 02-11-05 CAPSULE BY i ty of hr capsule 00:00: 00:00 MOUTH [place] 00 :00 DAILY WITH Medical BREAKFAST Branch clonazePAM 3-0 3- No [id number] 1mg TAKE 1 [facility] 1 mg tablet 02-11-05 TABLET BY it y of 00:00: 00:00 MOUTH IN [place] 00 :00 THE Medical MORNING Branch VENLAFAXINE 3-0 3- No [id number] 75mg TAKE 1 [facility] XR 75 mg 24 02-11-05 CAPSULE BY i ty of hr capsule 00:00: 00:00 MOUTH [place] 00 :00 DAILY WITH Medical BREAKFAST Branch famotidine 2023-0 Yes 40mg Take 1 [facility] 40 mg 5-19 tablet by ity of tablet 12:54: mouth in [place] [address] the Medical morning. Branch famotidine 2023-0 Yes 40mg Take 1 [facility] rs 40 mg 5-19 tablet by ity of tablet 12:54: mouth in [place] [address] the Medical morning. Branch famotidine 2023-0 Yes 40mg Take 1 [facility] rs 40 mg 5-19 tablet by ity of tablet 12:54: mouth in [place] [address] the Medical morning. Branch famotidine 2023-0 Yes 40mg Take 1 [facility] rs 40 mg 5-19 tablet by ity of tablet 12:54: mouth in [place] [address] the Medical morning. Branch famotidine 2023-0 Yes 40mg Take 1 [facility] rs 40 mg 5-19 tablet by ity of tablet 12:54: mouth in [place] [address] the Medical morning. Branch famotidine 2023-0 Yes 40mg Take 1 [facility] rs 40 mg 5-19 tablet by ity of tablet 12:54: mouth in [place] [address] the Medical morning. Branch famotidine 2023-0 Yes 40mg Take 1 [facility] rs 40 mg 5-19 tablet by ity of tablet 12:54: mouth in [place] [address] the Medical morning. Branch famotidine 2023-0 Yes 40mg Take 1 [facility] rs 40 mg 5-19 tablet by ity of tablet 12:54: mouth in [place] [address] the Medical morning. Branch famotidine 2023-0 Yes 40mg Take 1 [facility] rs 40 mg 5-19 tablet by ity of tablet 12:54: mouth in [place] [address] the Medical morning. Branch famotidine 2023-0 Yes 40mg Take 1 [facility] rs 40 mg 5-19 tablet by ity of tablet 12:54: mouth in [place] [address] the Medical morning. Branch famotidine 2023-0 Yes 40mg Take 1 [facility] rs 40 mg 5-19 tablet by ity of tablet 12:54: mouth in [place] [address] the Medical morning. Branch famotidine 2023-0 Yes 40mg Take 1 [facility] rs 40 mg 5-19 tablet by ity of tablet 12:54: mouth in [place] [address] the Medical morning. Branch famotidine 2023-0 Yes 40mg Take 1 [facility] rs 40 mg 5-19 tablet by ity of tablet 12:54: mouth in [place] [address] the Medical morning. Branch famotidine 2023-0 Yes 40mg Take 1 [facility] 40 mg 5-19 tablet by ity of tablet 12:54: mouth in [place] [address] the Medical morning. Branch famotidine 2023-0 Yes 40mg Take 1 [facility] 40 mg 5-19 tablet by ity of tablet 12:54: mouth in [place] [address] the Medical morning. Branch famotidine 2023-0 Yes 40mg Take 1 [facility] rs 40 mg 5-19 tablet by ity of tablet 12:54: mouth in [place] [address] the Medical morning. Branch famotidine 2023-0 Yes 40mg Take 1 [facility] rs 40 mg 5-19 tablet by ity of tablet 12:54: mouth in [place] [address] the Medical morning. Branch famotidine 2023-0 Yes 40mg Take 1 [facility] rs 40 mg 5-19 tablet by ity of tablet 12:54: mouth in [place] [address] the Medical morning. Branch famotidine 2023-0 Yes 40mg Take 1 [facility] rs 40 mg 5-19 tablet by ity of tablet 12:54: mouth in [place] [address] the Medical morning. Branch famotidine 2023-0 Yes 40mg Take 1 [facility] rs 40 mg 5-19 tablet by ity of tablet 12:54: mouth in [place] [address] the Medical morning. Branch famotidine 2023-0 Yes 40mg Take 1 [facility] rs 40 mg 5-19 tablet by ity of tablet 12:54: mouth in [place] 46 the Medical morning. Branch famotidine 2022-0 Yes 40mg Take 1 [facility] rs 40 mg 5-19 tablet by ity of tablet 12:54: mouth in [place] 46 the Medical morning. Branch PANTOPRAZOL 2022-0 Yes [id number] TAKE 1 [facility] E 40 mg EC 5-17 TABLET BY ity of tablet 00:00: MOUTH [place] 00 EVERY DAY Medical Branch PANTOPRAZOL 2022-0 Yes [id number] TAKE 1 [facility] E 40 mg EC 5-17 TABLET BY ity of tablet 00:00: MOUTH [place] 00 EVERY DAY Medical Branch PANTOPRAZOL 2022-0 Yes [id number] TAKE 1 [facility] E 40 mg EC 5-17 TABLET BY ity of tablet 00:00: MOUTH [place] 00 EVERY DAY Medical Branch PANTOPRAZOL 2022-0 Yes [id number] TAKE 1 [facility] E 40 mg EC 5-17 TABLET BY ity of tablet 00:00: MOUTH [place] 00 EVERY DAY Medical Branch PANTOPRAZOL 2022-0 Yes [id number] TAKE 1 [facility] E 40 mg EC 5-17 TABLET BY ity of tablet 00:00: MOUTH [place] 00 EVERY DAY Medical Branch PANTOPRAZOL 2022-0 Yes [id number] TAKE 1 [facility] E 40 mg EC 5-17 TABLET BY ity of tablet 00:00: MOUTH [place] 00 EVERY DAY Medical Branch PANTOPRAZOL 2022-0 Yes [id number] TAKE 1 [facility] E 40 mg EC 5-17 TABLET BY ity of tablet 00:00: MOUTH [place] 00 EVERY DAY Medical Branch PANTOPRAZOL 2022-0 Yes [id number] TAKE 1 [facility] E 40 mg EC 5-17 TABLET BY ity of tablet 00:00: MOUTH [place] 00 EVERY DAY Medical Branch PANTOPRAZOL 2022-0 Yes [id number] TAKE 1 [facility] E 40 mg EC 5-17 TABLET BY ity of tablet 00:00: MOUTH [place] 00 EVERY DAY Medical Branch PANTOPRAZOL 2022-0 Yes [id number] TAKE 1 [facility] E 40 mg EC 5-17 TABLET BY ity of tablet 00:00: MOUTH [place] 00 EVERY DAY Medical Branch PANTOPRAZOL 2022-0 Yes [id number] TAKE 1 [facility] E 40 mg EC 5-17 TABLET BY ity of tablet 00:00: MOUTH [place] 00 EVERY DAY Medical Branch PANTOPRAZOL 2022-0 Yes [id number] TAKE 1 [facility] E 40 mg EC 5-17 TABLET BY ity of tablet 00:00: MOUTH [place] 00 EVERY DAY Medical Branch PANTOPRAZOL 3-0 Yes [id number] TAKE 1 [facility] E 40 mg EC 5-17 TABLET BY [facility] of tablet 00:00: MOUTH [place] 00 EVERY DAY Medical Branch PANTOPRAZOL 2022-0 Yes [id number] TAKE 1 [facility] E 40 mg EC 5-17 TABLET BY [facility] of tablet 00:00: MOUTH [place] EVERY DAY Medical Branch PANTOPRAZOL 2022-0 Yes [id number] TAKE 1 [facility] E 40 mg EC 5-17 TABLET BY it[facility] of tablet 00:00: MOUTH [place] 00 EVERY DAY Medical Branch PANTOPRAZOL 2022-0 Yes [id number] TAKE 1 [facility] E 40 mg EC 5-17 TABLET BY ity of tablet 00:00: [facility] EVERY DAY Medical Branch PANTOPRAZOL 2022-0 Yes [id number] TAKE 1 [facility] E 40 mg EC 5-17 TABLET BY ity of tablet 00:00: [facility] EVERY DAY Medical Branch PANTOPRAZOL 2022-0 Yes [id number] TAKE 1 [facility] E 40 mg EC 5-17 TABLET BY ity of tablet 00:00: MOUTH [place] 00 EVERY DAY Medical Branch PANTOPRAZOL 3-0 Yes [id number] TAKE 1 [facility] E 40 mg EC 5-17 TABLET BY ity of tablet 00:00: [facility] 00 EVERY DAY Medical Branch PANTOPRAZOL 3-0 Yes [id number] TAKE 1 [facility] E 40 mg EC 5-17 TABLET BY ity of tablet 00:00: [facility] 00 EVERY DAY Medical Branch PANTOPRAZOL 3-0 Yes [id number] TAKE 1 [facility] E 40 mg EC 5-17 TABLET BY ity of tablet 00:00: [facility] 00 EVERY DAY Medical Branch PANTOPRAZOL 3-0 Yes [id number] TAKE 1 [facility] E 40 mg EC 5-17 TABLET BY ity of tablet 00:00: [facility] 00 EVERY DAY Medical Branch PANTOPRAZOL 3-0 Yes [id number] TAKE 1 [facility] E 40 mg EC 5-17 TABLET BY ity of tablet 00:00: [facility] 00 EVERY DAY Medical Branch PANTOPRAZOL 3-0 Yes [id number] TAKE 1 [facility] E 40 mg EC 5-17 TABLET BY ity of tablet 00:00: [facility] EVERY DAY Medical Branch PANTOPRAZOL 2022-0 Yes [id number] TAKE 1 [facility] E 40 mg EC 5-17 TABLET BY ity of tablet 00:00: MOUTH [place] 00 EVERY DAY Medical Branch PANTOPRAZOL 2022-0 Yes [id number] TAKE 1 [facility] E 40 mg EC 5-17 TABLET BY ity of tablet 00:00: MOUTH [place] 00 EVERY DAY Medical Branch PANTOPRAZOL 2022-0 Yes [id number] TAKE 1 [facility] E 40 mg EC 5-17 TABLET BY ity of tablet 00:00: MOUTH [place] EVERY DAY Medical Branch PANTOPRAZOL 2022-0 Yes [id number] TAKE 1 [facility] E 40 mg EC 5-17 TABLET BY ity of tablet 00:00: MOUTH [place] 00 EVERY DAY Medical Branch PANTOPRAZOL 2022-0 Yes [id number] TAKE 1 [facility] E 40 mg EC 5-17 TABLET BY it[facility] of tablet 00:00: MOUTH [place] EVERY DAY Medical Branch PANTOPRAZOL 2022-0 Yes [id number] TAKE 1 [facility] E 40 mg EC 5-17 TABLET BY ity of tablet 00:00: MOUTH [place] 00 EVERY DAY Medical Branch semaglutide Yes [id number] Inject [facility] (OZEMPIC) 5-12 0.5mg ity of 0.25 mg or 00:00: under the [place] 0.5 mg (2 00 skin Medical mg/3 mL) weekly Branch PnIj semaglutide 0 Yes [id number] Inject [facility] (OZEMPIC) 5-12 0.5mg ity of 0.25 mg or 00:00: under the [place] 0.5 mg (2 00 skin Medical mg/3 mL) weekly Branch PnIj semaglutide 2022-0 Yes [id number] Inject [facility] (OZEMPIC) 5-12 0.5mg ity of 0.25 mg or 00:00: under the [place] 0.5 mg (2 00 skin Medical mg/3 mL) weekly Branch PnIj semaglutide 2022-0 Yes [id number] Inject [facility] (OZEMPIC) 5-12 0.5mg ity of 0.25 mg or 00:00: under the [place] 0.5 mg (2 00 skin Medical mg/3 mL) weekly Branch PnIj semaglutide 2022-0 Yes [id number] Inject [facility] (OZEMPIC) 5-12 0.5mg ity of 0.25 mg or 00:00: under the [place] 0.5 mg (2 00 skin Medical mg/3 mL) weekly Branch PnIj semaglutide 2022-0 Yes [id number] Inject [facility] (OZEMPIC) 5-12 0.5mg ity of 0.25 mg or 00:00: under the [place] 0.5 mg (2 00 skin Medical mg/3 mL) weekly Branch PnIj semaglutide 2022-0 Yes [id number] Inject [facility] (OZEMPIC) 5-12 0.5mg ity of 0.25 mg or 00:00: under the [place] 0.5 mg (2 00 skin Medical mg/3 mL) weekly Branch PnIj semaglutide 2022-0 Yes [id number] Inject [facility] (OZEMPIC) 5-12 0.5mg ity of 0.25 mg or 00:00: under the [place] 0.5 mg (2 00 skin Medical mg/3 mL) weekly Branch PnIj semaglutide 2022-0 Yes [id number] Inject [facility] (OZEMPIC) 5-12 0.5mg ity of 0.25 mg or 00:00: under the [place] 0.5 mg (2 00 skin Medical mg/3 mL) weekly Branch PnIj sulfaSALAzi 2022- Yes [id number] Take 1 [facility] ne 500 mg 5-12 -26 tablet by ity of EC tablet 00:00: 04:59 [place] :[place] (two) Medical times Branch daily for 14 days, THEN 2 tablets 2 (two) times daily for 60 days. sulfaSALAzi 2022- Yes [id number] Take 1 [facility] ne 500 mg 5-12 -26 tablet by ity of EC tablet 00:00: 04:59 mouth [place] 00 :00 (two) Medical times Branch daily for 14 days, THEN 2 tablets 2 (two) times daily for 60 days. sulfaSALAzi 2022- Yes [id number] Take 1 [facility] ne 500 mg 5-12 -26 tablet by ity of EC tablet 00:00: 04:59 mouth [place] 00 :00 (two) Medical times Branch daily for 14 days, THEN 2 tablets 2 (two) times daily for 60 days. sulfaSALAzi 2022- Yes [id number] Take 1 [facility] ne 500 mg 5-12 07-26 tablet by ity of EC tablet 00:00: 04:59 mouth [place] 00 :00 (two) Medical times Branch daily for 14 days, THEN 2 tablets 2 (two) times daily for 60 days. sulfaSALAzi 2022- Yes [id number] Take 1 [facility] ne 500 mg 5-12 07-26 tablet by ity of EC tablet 00:00: 04:59 mouth [place] 00 :00 (two) Medical times Branch daily for 14 days, THEN 2 tablets 2 (two) times daily for 60 days. sulfaSALAzi 2022- Yes [id number] Take 1 [facility] 500 mg 5-12 07-26 tablet by ity of EC tablet 00:00: 04:59 mouth [place] 00 :00 (two) Medical times Branch daily for 14 days, THEN 2 tablets 2 (two) times daily for 60 days. sulfaSALAzi 2022- Yes [id number] Take 1 [facility] 500 mg 5-12 07-26 tablet by ity of EC tablet 00:00: 04:59 mouth [place] 00 :00 (two) Medical times Branch daily for 14 days, THEN 2 tablets 2 (two) times daily for 60 days. sulfaSALAzi 2022- Yes [id number] Take 1 [facility] 500 mg 5-12 07-26 tablet by ity of EC tablet 00:00: 04:59 mouth [place] 00 :00 (two) Medical times Branch daily for 14 days, THEN 2 tablets 2 (two) times daily for 60 days. sulfaSALAzi 2022- Yes [id number] Take 1 [facility] 500 mg 5-12 07-26 tablet by ity of EC tablet 00:00: 04:59 mouth [place] 00 :00 (two) Medical times Branch daily for 14 days, THEN 2 tablets 2 (two) times daily for 60 days. sulfaSALAzi 2022- Yes [id number] Take 1 [facility] 500 mg 5-12 07-26 tablet by ity of EC tablet 00:00: 04:59 mouth [place] 00 :00 (two) Medical times Branch daily for 14 days, THEN 2 tablets 2 (two) times daily for 60 days. sulfaSALAzi Yes [id number] Take 1 [facility] 500 mg 5-12 07-26 tablet by ity of EC tablet 00:00: 04:59 mouth [place] 00 :00 (two) Medical times Branch daily for 14 days, THEN 2 tablets 2 (two) times daily for 60 days. sulfaSALAzi 2022- Yes [id number] Take 1 [facility] 500 mg 5-12 07-26 tablet by ity of EC tablet 00:00: 04:59 mouth [place] 00 :00 (two) Medical times Branch daily for 14 days, THEN 2 tablets 2 (two) times daily for 60 days. sulfaSALAzi 2022- Yes [id number] Take 1 [facility] 500 mg 5-12 07-26 tablet by ity of EC tablet 00:00: 04:59 mouth [place] 00 :00 (two) Medical times Branch daily for 14 days, THEN 2 tablets 2 (two) times daily for 60 days. sulfaSALAzi Yes [id number] Take 1 [facility] ne 500 mg 5-12 07-26 tablet by it[facility] of EC tablet 00:00: 04:59 mouth [place] 00 :00 (two) Medical times Branch daily for 14 days, THEN 2 tablets 2 (two) times daily for 60 days. sulfaSALAzi Yes [id number] Take 1 [facility] 500 mg 5-12 07-26 tablet by ity of EC tablet 00:00: 04:59 mouth [place] 00 :00 (two) Medical times Branch daily for 14 days, THEN 2 tablets 2 (two) times daily for 60 days. sulfaSALAzi Yes [id number] Take 1 [facility] 500 mg 5-12 07-26 tablet by it[facility] of EC tablet 00:00: 04:59 mouth [place] 00 :00 (two) Medical times Branch daily for 14 days, THEN 2 tablets 2 (two) times daily for 60 days. sulfaSALAzi 2022- Yes [id number] Take 1 [facility] ne 500 mg 5-12 07-26 tablet by ity of EC tablet 00:00: 04:59 mouth [place] 00 :00 (two) Medical times Branch daily for 14 days, THEN 2 tablets 2 (two) times daily for 60 days. sulfaSALAzi 2022- Yes [id number] Take 1 [facility] ne 500 mg 5-12 07-26 tablet by ity of EC tablet 00:00: 04:59 mouth [place] 00 :00 (two) Medical times Branch daily for 14 days, THEN 2 tablets 2 (two) times daily for 60 days. sulfaSALAzi 2022- Yes [id number] Take 1 [facility] ne 500 mg 5-12 07-26 tablet by ity of EC tablet 00:00: 04:59 mouth [place] 00 :00 (two) Medical times Branch daily for 14 days, THEN 2 tablets 2 (two) times daily for 60 days. sulfaSALAzi 2022- Yes [id number] Take 1 [facility] ne 500 mg 5-12 07-26 tablet by ity of EC tablet 00:00: 04:59 mouth [place] 00 :00 (two) Medical times Branch daily for 14 days, THEN 2 tablets 2 (two) times daily for 60 days. sulfaSALAzi 2022- Yes [id number] Take 1 [facility] ne 500 mg 5-12 07-26 tablet by ity of EC tablet 00:00: 04:59 mouth [place] 00 :00 (two) Medical times Branch daily for 14 days, THEN 2 tablets 2 (two) times daily for 60 days. sulfaSALAzi 2022- Yes [id number] Take 1 [facility] ne 500 mg 5-12 07-26 tablet by ity of EC tablet 00:00: 04:59 mouth [place] 00 :00 (two) Medical times Branch daily for 14 days, THEN 2 tablets 2 (two) times daily for 60 days. sulfaSALAzi 2022- Yes [id number] Take 1 [facility] ne 500 mg 5-12 07-26 tablet by ity of EC tablet 00:00: 04:59 mouth [place] 00 :00 (two) Medical times Branch daily for 14 days, THEN 2 tablets 2 (two) times daily for 60 days. sulfaSALAzi 2022- Yes [id number] Take 1 [facility] ne 500 mg 5-12 07-26 tablet by ity of EC tablet 00:00: 04:59 mouth [place] 00 :00 (two) Medical times Branch daily for 14 days, THEN 2 tablets 2 (two) times daily for 60 days. sulfaSALAzi 2022- Yes [id number] Take 1 [facility] ne 500 mg 5-12 07-26 tablet by ity of EC tablet 00:00: 04:59 mouth [place] 00 :00 (two) Medical times Branch daily for 14 days, THEN 2 tablets 2 (two) times daily for 60 days. sulfaSALAzi 2022- Yes [id number] Take 1 [facility] ne 500 mg 5-12 07-26 tablet by ity of EC tablet 00:00: 04:59 mouth [place] 00 :00 (two) Medical times Branch daily for 14 days, THEN 2 tablets 2 (two) times daily for 60 days. sulfaSALAzi 2022- Yes [id number] Take 1 [facility] 500 mg 5-12 07-26 tablet by ity of EC tablet 00:00: 04:59 mouth [place] 00 :00 (two) Medical times Branch daily for 14 days, THEN 2 tablets 2 (two) times daily for 60 days. sulfaSALAzi 2022- Yes [id number] Take 1 [facility] 500 mg 5-12 07-26 tablet by ity of EC tablet 00:00: 04:59 mouth [place] 00 :00 (two) Medical times Branch daily for 14 days, THEN 2 tablets 2 (two) times daily for 60 days. sulfaSALAzi 2022- Yes [id number] Take 1 [facility] 500 mg 5-12 07-26 tablet by ity of EC tablet 00:00: 04:59 mouth 2 [place] 00 :00 (two) Medical times Branch daily for 14 days, THEN 2 tablets 2 (two) times daily for 60 days. sulfaSALAzi 2022- Yes [id number] Take 1 [facility] 500 mg 5-12 07-26 tablet by ity of EC tablet 00:00: 04:59 mouth [place] 00 :00 (two) Medical times Branch daily for 14 days, THEN 2 tablets 2 (two) times daily for 60 days. sulfaSALAzi 2022- Yes [id number] Take 1 [facility] ne 500 mg 5-12 07-26 tablet by ity of EC tablet 00:00: 04:59 mouth [place] 00 :00 (two) Medical times Branch daily for 14 days, THEN 2 tablets 2 (two) times daily for 60 days. sulfaSALAzi 2022-0 2022- Yes [id number] Take 1 [facility] ne 500 mg -08 29- tablet by ity of EC tablet 00:00: 04:59 mouth [place] 00 :00 (two) Medical times Branch daily for 14 days, THEN 2 tablets 2 (two) times daily for 60 days. semaglutide 0 202- No [id number] Inject [facility] (OZEMPIC) 02-01 05-22 0.5mg ity of 0.25 mg or 00:00: 00:00 under the [place] 0.5 mg (2 00 :00 skin Medical mg/3 mL) weekly Branch PnIj PROPRANOLOL 2022-0 Yes [id number] TAKE 1 [facility] 10 mg 5-03 TABLET BY ity of tablet 00:00: MOUTH IN [place] [id number] THE Medical MORNING Dafter AND IN THE EVENING. MAY INCREASE TO 2 TABLETS 2 TIMES A DAY FOR ANXIETY/ PALPITATIO NS PROPRANOLOL 2022-0 Yes [id number] TAKE 1 [facility] 10 mg 5-03 TABLET BY ity of tablet 00:00: MOUTH IN [place] [address] [facility] MORNING Branch AND IN THE EVENING. MAY INCREASE TO 2 TABLETS 2 TIMES A DAY FOR ANXIETY/ PALPITATIO NS PROPRANOLOL 2022-0 Yes [id number] TAKE 1 [facility] 10 mg 5-03 TABLET BY ity of tablet 00:00: MOUTH IN [place] [address] [facility] MORNING Branch AND IN THE EVENING. MAY INCREASE TO 2 TABLETS 2 TIMES A DAY FOR ANXIETY/ PALPITATIO NS PROPRANOLOL 2022-0 Yes [id number] TAKE 1 [facility] 10 mg 5-03 TABLET BY ity of tablet 00:00: MOUTH IN [place] [address] [facility] MORNING Branch AND IN THE EVENING. MAY INCREASE TO 2 TABLETS 2 TIMES A DAY FOR ANXIETY/ PALPITATIO NS PROPRANOLOL 2022-0 Yes [id number] TAKE 1 [facility] 10 mg 5-03 TABLET BY ity of tablet 00:00: MOUTH IN [place] [address] [facility] MORNING Dafter AND IN THE EVENING. MAY INCREASE TO 2 TABLETS 2 TIMES A DAY FOR ANXIETY/ PALPITATIO NS PROPRANOLOL 2022-0 Yes [id number] TAKE 1 [facility] 10 mg 5-03 TABLET BY ity of tablet 00:00: MOUTH IN [address] MORNING Branch AND IN THE EVENING. MAY INCREASE TO 2 TABLETS 2 TIMES A DAY FOR ANXIETY/ PALPITATIO NS PROPRANOLOL 2023-0 Yes [id number] TAKE 1 [facility] 10 mg 5-03 TABLET BY ity of tablet 00:00: MOUTH IN [address] AND IN THE EVENING. MAY INCREASE TO 2 TABLETS 2 TIMES A DAY FOR ANXIETY/ PALPITATIO NS PROPRANOLOL 2023-0 Yes [id number] TAKE 1 [facility] 10 mg 5-03 TABLET BY ity of tablet 00:00: MOUTH IN [address] AND IN THE EVENING. MAY INCREASE TO 2 TABLETS 2 TIMES A DAY FOR ANXIETY/ PALPITATIO NS PROPRANOLOL 2023-0 Yes [id number] TAKE 1 [facility] 10 mg 5-03 TABLET BY ity of tablet 00:00: MOUTH IN [address] AND IN THE EVENING. MAY INCREASE TO 2 TABLETS 2 TIMES A DAY FOR ANXIETY/ PALPITATIO NS PROPRANOLOL 2023-0 Yes [id number] TAKE 1 [facility] 10 mg 5-03 TABLET BY ity of tablet 00:00: MOUTH IN [address] AND IN THE EVENING. MAY INCREASE TO 2 TABLETS 2 TIMES A DAY FOR ANXIETY/ PALPITATIO NS PROPRANOLOL 2023-0 Yes [id number] TAKE 1 [facility] 10 mg 5-03 TABLET BY ity of tablet 00:00: MOUTH IN [address] AND IN THE EVENING. MAY INCREASE TO 2 TABLETS 2 TIMES A DAY FOR ANXIETY/ PALPITATIO NS PROPRANOLOL 2023-0 Yes [id number] TAKE 1 [facility] 10 mg 5-03 TABLET BY ity of tablet 00:00: MOUTH IN [address] AND IN THE EVENING. MAY INCREASE TO 2 TABLETS 2 TIMES A DAY FOR ANXIETY/ PALPITATIO NS PROPRANOLOL 2023-0 Yes [id number] TAKE 1 [facility] 10 mg 5-03 TABLET BY ity of tablet 00:00: MOUTH IN [address] AND IN THE EVENING. MAY INCREASE TO 2 TABLETS 2 TIMES A DAY FOR ANXIETY/ PALPITATIO NS PROPRANOLOL 2023-0 Yes [id number] TAKE 1 [facility] 10 mg 5-03 TABLET BY ity of tablet 00:00: MOUTH IN [address] AND IN THE EVENING. MAY INCREASE TO 2 TABLETS 2 TIMES A DAY FOR ANXIETY/ PALPITATIO NS PROPRANOLOL 2023-0 Yes [id number] TAKE 1 [facility] 10 mg 5-03 TABLET BY ity of tablet 00:00: MOUTH IN [place] 00 THE Medical MORNING Branch AND IN THE EVENING. MAY INCREASE TO 2 TABLETS 2 TIMES A DAY FOR ANXIETY/ PALPITATIO NS PROPRANOLOL 3-0 Yes [id number] TAKE 1 [facility] 10 mg 5-03 TABLET BY ity of tablet 00:00: MOUTH IN [place] 00 THE Medical MORNING Branch AND IN THE EVENING. MAY INCREASE TO 2 TABLETS 2 TIMES A DAY FOR ANXIETY/ PALPITATIO NS PROPRANOLOL 2022-0 Yes [id number] TAKE 1 [facility] 10 mg 5-03 TABLET BY ity of tablet 00:00: MOUTH IN [place] 00 THE Medical MORNING Branch AND IN THE EVENING. MAY INCREASE TO 2 TABLETS 2 TIMES A DAY FOR ANXIETY/ PALPITATIO NS PROPRANOLOL 2022-0 Yes [id number] TAKE 1 [facility] 10 mg 5-03 TABLET BY ity of tablet 00:00: MOUTH IN [place] 00 THE Medical MORNING Branch AND IN THE EVENING. MAY INCREASE TO 2 TABLETS 2 TIMES A DAY FOR ANXIETY/ PALPITATIO NS PROPRANOLOL 2022-0 2022- No [id number] TAKE 1 [facility] 10 mg 5-03 06-05 TABLET BY ity of tablet 00:00: 00:00 MOUTH IN [place] 00 :00 THE Medical MORNING Branch AND IN THE EVENING. MAY INCREASE TO 2 TABLETS 2 TIMES A DAY FOR ANXIETY/ PALPITATIO NS PROPRANOLOL 2022-0 2022- No [id number] TAKE 1 [facility] 10 mg 5-03 06-05 TABLET BY ity of tablet 00:00: 00:00 MOUTH IN [place] 00 :00 THE Medical MORNING Branch AND IN THE EVENING. MAY INCREASE TO 2 TABLETS 2 TIMES A DAY FOR ANXIETY/ PALPITATIO NS PROPRANOLOL 2022-0 2022- No [id number] TAKE 1 [facility] 10 mg 5-03 06-05 TABLET BY ity of tablet 00:00: 00:00 MOUTH IN [place] 00 :00 THE Medical MORNING Branch AND IN THE EVENING. MAY INCREASE TO 2 TABLETS 2 TIMES A DAY FOR ANXIETY/ PALPITATIO NS DICLOFENAC 3-0 Yes [id number] TAKE 1 [facility] 75 mg EC 4-25 TABLET BY ity of tablet 00:00: MOUTH [place] 00 EVERY Medical MORNING Branch AND EVERY EVENING WM FOR 30 DAYS DICLOFENAC 2023-0 Yes [id number] TAKE 1 [facility] 75 mg EC 4-25 TABLET BY ity of tablet 00:00: MOUTH [place] 00 EVERY Medical MORNING Branch AND EVERY EVENING WM FOR 30 DAYS DICLOFENAC 2023-0 Yes [id number] TAKE 1 [facility] 75 mg EC 4-25 TABLET BY ity of tablet 00:00: MOUTH [place] 00 EVERY Medical MORNING Branch AND EVERY EVENING WM FOR 30 DAYS DICLOFENAC 2022-0 Yes [id number] TAKE 1 [facility] 75 mg EC 4-25 TABLET BY ity of tablet 00:00: MOUTH [place] 00 EVERY Medical MORNING Branch AND EVERY EVENING WM FOR 30 DAYS DICLOFENAC 2022-0 Yes [id number] TAKE 1 [facility] 75 mg EC 4-25 TABLET BY ity of tablet 00:00: MOUTH [place] 00 EVERY Medical MORNING Branch AND EVERY EVENING WM FOR 30 DAYS DICLOFENAC 2022-0 Yes [id number] TAKE 1 [facility] 75 mg EC 4-25 TABLET BY ity of tablet 00:00: MOUTH [place] 00 EVERY Medical MORNING Branch AND EVERY EVENING WM FOR 30 DAYS DICLOFENAC 2022-0 Yes [id number] TAKE 1 [facility] 75 mg EC 4-25 TABLET BY ity of tablet 00:00: MOUTH [place] 00 EVERY Medical MORNING Branch AND EVERY EVENING WM FOR 30 DAYS DICLOFENAC 2022-0 Yes [id number] TAKE 1 [facility] 75 mg EC 4-25 TABLET BY ity of tablet 00:00: MOUTH [place] 00 EVERY Medical MORNING Branch AND EVERY EVENING WM FOR 30 DAYS DICLOFENAC 0 Yes [id number] TAKE 1 [facility] 75 mg EC 4-25 TABLET BY ity of tablet 00:00: MOUTH [place] 00 EVERY Medical MORNING Branch AND EVERY EVENING WM FOR 30 DAYS DICLOFENAC 2022-0 Yes [id number] TAKE 1 [facility] 75 mg EC 4-25 TABLET BY ity of tablet 00:00: MOUTH [place] 00 EVERY Medical MORNING Branch AND EVERY EVENING WM FOR 30 DAYS DICLOFENAC 2022-0 Yes [id number] TAKE 1 [facility] 75 mg EC 4-25 TABLET BY ity of tablet 00:00: MOUTH [place] 00 EVERY Medical MORNING Branch AND EVERY EVENING WM FOR 30 DAYS DICLOFENAC 2022-0 Yes [id number] TAKE 1 [facility] 75 mg EC 4-25 TABLET BY ity of tablet 00:00: MOUTH [place] 00 EVERY Medical MORNING Branch AND EVERY EVENING WM FOR 30 DAYS DICLOFENAC 2022-0 Yes [id number] TAKE 1 [facility] 75 mg EC 4-25 TABLET BY ity of tablet 00:00: MOUTH [place] 00 EVERY Medical MORNING Branch AND EVERY EVENING WM FOR 30 DAYS DICLOFENAC 2022-0 Yes [id number] TAKE 1 [facility] 75 mg EC 4-25 TABLET BY ity of tablet 00:00: MOUTH [place] 00 EVERY Medical MORNING Branch AND EVERY EVENING WM FOR 30 DAYS DICLOFENAC 2022-0 Yes [id number] TAKE 1 [facility] 75 mg EC 4-25 TABLET BY ity of tablet 00:00: MOUTH [place] 00 EVERY Medical MORNING Branch AND EVERY EVENING WM FOR 30 DAYS DICLOFENAC 2022-0 Yes [id number] TAKE 1 [facility] 75 mg EC 4-25 TABLET BY ity of tablet 00:00: MOUTH [place] 00 EVERY Medical MORNING Branch AND EVERY EVENING WM FOR 30 DAYS DICLOFENAC 2022-0 2023- No [id number] TAKE 1 [facility] 75 mg EC 4-25 05-23 TABLET BY ity o f tablet 00:00: 00:00 MOUTH [place] 00 :00 EVERY Medical MORNING Branch AND EVERY EVENING WM FOR 30 DAYS propranoloL 2022-0 Yes [id number] 20mg Take 2 [facility] 10 mg 4-18 tablets by ity of tablet 00:00: mouth in [place] 00 the Medical morning Branch and 2 tablets in the evening. May increase to two tablets twice a day for anxiety/pa lpitations venlafaxine 2022-0 Yes [id number] 75mg Take 1 [facility] XR 75 mg 24 4-18 capsule by it y of hr capsule 00:00: mouth [place] 00 daily with Medical breakfast. Branch gabapentin 2022-0 Yes [id number] 600mg Take 1 [facility] 600 mg 4-18 tablet by ity of tablet 00:00: mouth in [place] 00 the Medical morning Branch and 1 tablet at noon and 1 tablet in the evening. clonazePAM 2022-0 Yes [id number] 1mg Take 1 [facility] n[facility] 1 mg tablet 4-18 tablet by ity of 00:00: mouth in [place] 00 the Medical morning. Branch propranoloL 2022-0 Yes [id number] 20mg Take 2 [facility] 10 mg 4-18 tablets by ity of tablet 00:00: mouth in [place] 00 the Medical morning Branch and 2 tablets in the evening. May increase to two tablets twice a day for anxiety/pa lpitations venlafaxine 2022-0 Yes [id number] 75mg Take 1 [facility] XR 75 mg 24 4-18 capsule by it y of hr capsule 00:00: mouth [place] 00 daily with Medical breakfast. Branch gabapentin 2022-0 Yes [id number] 600mg Take 1 [facility] 600 mg 4-18 tablet by ity of tablet 00:00: mouth in [place] the Medical morning Branch and 1 tablet at noon and 1 tablet in the evening. clonazePAM 2022-0 Yes [id number] 1mg Take 1 U nivers 1 mg tablet 4-18 tablet by ity of 00:00: mouth in [place] the Medical morning. Branch propranoloL 3-0 Yes [id number] 20mg Take 2 [facility] 10 mg 4-18 tablets by ity of tablet 00:00: mouth in [place] the Medical morning Branch and 2 tablets in the evening. May increase to two tablets twice a day for anxiety/pa lpitations venlafaxine 2022-0 Yes [id number] 75mg Take 1 [facility] XR 75 mg 24 4-18 capsule by it y of hr capsule 00:00: mouth [place] 00 daily with Medical breakfast. Branch gabapentin 3-0 Yes [id number] 600mg Take 1 [facility] 600 mg 4-18 tablet by ity of tablet 00:00: mouth in [place] the Medical morning Branch and 1 tablet at noon and 1 tablet in the evening. clonazePAM 3-0 Yes [id number] 1mg Take 1 U nivers 1 mg tablet 4-18 tablet by ity of 00:00: mouth in [place] the Medical morning. Branch propranoloL 3-0 Yes [id number] 20mg Take 2 [facility] 10 mg 4-18 tablets by ity of tablet 00:00: mouth in [place] the Medical morning Branch and 2 tablets in the evening. May increase to two tablets twice a day for anxiety/pa lpitations venlafaxine 2022-0 Yes [id number] 75mg Take 1 [facility] XR 75 mg 24 4-18 capsule by it y of hr capsule 00:00: mouth [place] 00 daily with Medical breakfast. Branch gabapentin 3-0 Yes [id number] 600mg Take 1 [facility] 600 mg 4-18 tablet by ity of tablet 00:00: mouth in [place] the Medical morning Branch and 1 tablet at noon and 1 tablet in the evening. clonazePAM 3-0 Yes [id number] 1mg Take 1 U nivers 1 mg tablet 4-18 tablet by ity of 00:00: mouth in [place] the Medical morning. Branch propranoloL 3-0 Yes [id number] 20mg Take 2 [facility] 10 mg 4-18 tablets by ity of tablet 00:00: mouth in [place] the Medical morning Branch and 2 tablets in the evening. May increase to two tablets twice a day for anxiety/pa lpitations venlafaxine 3-0 Yes [id number] 75mg Take 1 [facility] XR 75 mg 24 4-18 capsule by it y of hr capsule 00:00: mouth [place] 00 daily with Medical breakfast. Branch gabapentin 3-0 Yes [id number] 600mg Take 1 [facility] 600 mg 4-18 tablet by ity of tablet 00:00: mouth in [place] the Medical morning Branch and 1 tablet at noon and 1 tablet in the evening. clonazePAM 3-0 Yes [id number] 1mg Take 1 U nivers 1 mg tablet 4-18 tablet by ity of 00:00: mouth in [place] the Medical morning. Branch propranoloL 3-0 Yes [id number] 20mg Take 2 [facility] 10 mg 4-18 tablets by ity of tablet 00:00: mouth in [place] the Medical morning Branch and 2 tablets in the evening. May increase to two tablets twice a day for anxiety/pa lpitations venlafaxine 3-0 Yes [id number] 75mg Take 1 [facility] XR 75 mg 24 4-18 capsule by it y of hr capsule 00:00: mouth [place] 00 daily with Medical breakfast. Branch gabapentin 3-0 Yes [id number] 600mg Take 1 [facility] 600 mg 4-18 tablet by ity of tablet 00:00: mouth in [place] the Medical morning Branch and 1 tablet at noon and 1 tablet in the evening. clonazePAM 3-0 Yes [id number] 1mg Take 1 U nivers 1 mg tablet 4-18 tablet by ity of 00:00: mouth in [place] the Medical morning. Branch propranoloL 3-0 Yes [id number] 20mg Take 2 [facility] 10 mg 4-18 tablets by ity of tablet 00:00: mouth in [place] the Medical morning Branch and 2 tablets in the evening. May increase to two tablets twice a day for anxiety/pa lpitations venlafaxine 3-0 Yes [id number] 75mg Take 1 [facility] XR 75 mg 24 4-18 capsule by it y of hr capsule 00:00: mouth [place] 00 daily with Medical breakfast. Branch gabapentin 3-0 Yes [id number] 600mg Take 1 [facility] 600 mg 4-18 tablet by ity of tablet 00:00: mouth in [place] the Medical morning Branch and 1 tablet at noon and 1 tablet in the evening. clonazePAM 2023-0 Yes [id number] 1mg Take 1 U nivers 1 mg tablet 4-18 tablet by ity of 00:00: mouth in [place] the Medical morning. Branch venlafaxine 2023-0 Yes [id number] 75mg Take 1 [facility] XR 75 mg 24 4-18 capsule by it y of hr capsule 00:00: mouth [place] 00 daily with Medical breakfast. Branch gabapentin 3-0 Yes [id number] 600mg Take 1 [facility] 600 mg 4-18 tablet by ity of tablet 00:00: mouth in [place] the Medical morning Branch and 1 tablet at noon and 1 tablet in the evening. clonazePAM 2023-0 Yes [id number] 1mg Take 1 [facility] 1 mg tablet 4-18 tablet by ity of 00:00: mouth in [place] the Medical morning. Branch venlafaxine 2023-0 Yes [id number] 75mg Take 1 [facility] XR 75 mg 24 4-18 capsule by it y of hr capsule 00:00: mouth [place] 00 daily with Medical breakfast. Branch gabapentin 3-0 Yes [id number] 600mg Take 1 [facility] 600 mg 4-18 tablet by ity of tablet 00:00: mouth in [place] the Medical morning Branch and 1 tablet at noon and 1 tablet in the evening. clonazePAM 2023-0 Yes [id number] 1mg Take 1 [facility] 1 mg tablet 4-18 tablet by ity of 00:00: mouth in [place] the Medical morning. Branch venlafaxine 3-0 Yes [id number] 75mg Take 1 [facility] XR 75 mg 24 4-18 capsule by it y of hr capsule 00:00: mouth [place] 00 daily with Medical breakfast. Branch gabapentin 3-0 Yes [id number] 600mg Take 1 [facility] 600 mg 4-18 tablet by ity of tablet 00:00: mouth in [place] the Medical morning Branch and 1 tablet at noon and 1 tablet in the evening. clonazePAM 2023-0 Yes [id number] 1mg Take 1 [facility] 1 mg tablet 4-18 tablet by ity of 00:00: mouth in [place] the Medical morning. Branch venlafaxine 2023-0 Yes [id number] 75mg Take 1 [facility] XR 75 mg 24 4-18 capsule by it y of hr capsule 00:00: mouth [place] 00 daily with Medical breakfast. Branch gabapentin 2023-0 Yes [id number] 600mg Take 1 [facility] 600 mg 4-18 tablet by ity of tablet 00:00: mouth in [place] the Medical morning Branch and 1 tablet at noon and 1 tablet in the evening. clonazePAM 2023-0 Yes [id number] 1mg Take 1 [facility] 1 mg tablet 4-18 tablet by ity of 00:00: mouth in [place] 00 the Medical morning. Branch venlafaxine 2023-0 Yes [id number] 75mg Take 1 [facility] XR 75 mg 24 4-18 capsule by it y of hr capsule 00:00: mouth [place] 00 daily with Medical breakfast. Branch gabapentin 2023-0 Yes [id number] 600mg Take 1 [facility] 600 mg 4-18 tablet by ity of tablet 00:00: mouth in [place] 00 the Medical morning Branch and 1 tablet at noon and 1 tablet in the evening. clonazePAM 2023-0 Yes [id number] 1mg Take 1 [facility] 1 mg tablet 4-18 tablet by ity of 00:00: mouth in [place] 00 the Medical morning. Branch venlafaxine 2023-0 Yes [id number] 75mg Take 1 [facility] XR 75 mg 24 4-18 capsule by it y of hr capsule 00:00: mouth [place] 00 daily with Medical breakfast. Branch gabapentin 2023-0 Yes [id number] 600mg Take 1 [facility] 600 mg 4-18 tablet by ity of tablet 00:00: mouth in [place] 00 the Medical morning Branch and 1 tablet at noon and 1 tablet in the evening. clonazePAM 2023-0 Yes [id number] 1mg Take 1 [facility] 1 mg tablet 4-18 tablet by ity of 00:00: mouth in [place] 00 the Medical morning. Branch venlafaxine 2023-0 Yes [id number] 75mg Take 1 [facility] XR 75 mg 24 4-18 capsule by it y of hr capsule 00:00: mouth [place] 00 daily with Medical breakfast. Branch gabapentin 2023-0 Yes [id number] 600mg Take 1 [facility] 600 mg 4-18 tablet by ity of tablet 00:00: mouth in [place] 00 the Medical morning Branch and 1 tablet at noon and 1 tablet in the evening. clonazePAM 2023-0 Yes [id number] 1mg Take 1 [facility] 1 mg tablet 4-18 tablet by ity of 00:00: mouth in [place] 00 the Medical morning. Branch venlafaxine 2023-0 Yes [id number] 75mg Take 1 [facility] XR 75 mg 24 4-18 capsule by it y of hr capsule 00:00: mouth [place] 00 daily with Medical breakfast. Branch gabapentin 2023-0 Yes [id number] 600mg Take 1 [facility] 600 mg 4-18 tablet by ity of tablet 00:00: mouth in [place] the Medical morning Branch and 1 tablet at noon and 1 tablet in the evening. clonazePAM 2023-0 Yes [id number] 1mg Take 1 [facility] 1 mg tablet 4-18 tablet by ity of 00:00: mouth in [place] the Medical morning. Branch venlafaxine 2023-0 Yes [id number] 75mg Take 1 [facility] XR 75 mg 24 4-18 capsule by it y of hr capsule 00:00: mouth [place] 00 daily with Medical breakfast. Branch gabapentin 2023-0 Yes [id number] 600mg Take 1 [facility] 600 mg 4-18 tablet by ity of tablet 00:00: mouth in [place] the Medical morning Branch and 1 tablet at noon and 1 tablet in the evening. clonazePAM 2023-0 Yes [id number] 1mg Take 1 [facility] 1 mg tablet 4-18 tablet by ity of 00:00: mouth in [place] the Medical morning. Branch venlafaxine 3-0 Yes [id number] 75mg Take 1 [facility] XR 75 mg 24 4-18 capsule by it y of hr capsule 00:00: mouth [place] daily with Medical breakfast. Branch gabapentin 3-0 Yes [id number] 600mg Take 1 [facility] 600 mg 4-18 tablet by ity of tablet 00:00: mouth in [place] the Medical morning Branch and 1 tablet at noon and 1 tablet in the evening. clonazePAM 2023-0 Yes [id number] 1mg Take 1 [facility] 1 mg tablet 4-18 tablet by ity of 00:00: mouth in [place] the Medical morning. Branch venlafaxine 2023-0 Yes [id number] 75mg Take 1 [facility] XR 75 mg 24 4-18 capsule by it y of hr capsule 00:00: mouth [place] 00 daily with Medical breakfast. Branch gabapentin 2023-0 Yes [id number] 600mg Take 1 [facility] 600 mg 4-18 tablet by ity of tablet 00:00: mouth in [place] the Medical morning Branch and 1 tablet at noon and 1 tablet in the evening. clonazePAM 2023-0 Yes [id number] 1mg Take 1 [facility] n[facility] 1 mg tablet 4-18 tablet by ity of 00:00: mouth in [place] [address] the Medical morning. Branch gabapentin 2023-0 Yes [id number] 600mg Take 1 [facility] 600 mg 4-18 tablet by ity of tablet 00:00: mouth in [place] [address] the Medical morning Branch and 1 tablet at noon and 1 tablet in the evening. clonazePAM 2023-0 Yes [id number] 1mg Take 1 [facility] 1 mg tablet 4-18 tablet by ity of 00:00: mouth in [place] [address] [facility] morning. Branch gabapentin 2023-0 Yes [id number] 600mg Take 1 [facility] 600 mg 4-18 tablet by ity of tablet 00:00: mouth in [place] [address] the Medical morning Branch and 1 tablet at noon and 1 tablet in the evening. gabapentin 2023-0 Yes [id number] 600mg Take 1 [facility] 600 mg 4-18 tablet by ity of tablet 00:00: mouth in [place] [address] [facility] morning Dafter and 1 tablet at noon and 1 tablet in the evening. gabapentin 2023-0 Yes [id number] 600mg Take 1 [facility] 600 mg 4-18 tablet by ity of tablet 00:00: mouth in [place] [address] [facility] morning Dafter and 1 tablet at noon and 1 tablet in the evening. gabapentin 2023-0 Yes [id number] 600mg Take 1 [facility] 600 mg 4-18 tablet by ity of tablet 00:00: mouth in [place] [address] [facility] morning Dafter and 1 tablet at noon and 1 tablet in the evening. gabapentin 2023-0 Yes [id number] 600mg Take 1 [facility] 600 mg 4-18 tablet by ity of tablet 00:00: mouth in [address] morning Dafter and 1 tablet at noon and 1 tablet in the evening. gabapentin 2023-0 Yes [id number] 600mg Take 1 [facility] 600 mg 4-18 tablet by ity of tablet 00:00: mouth in [address] morning Dafter and 1 tablet at noon and 1 tablet in the evening. gabapentin 2023-0 Yes [id number] 600mg Take 1 [facility] 600 mg 4-18 tablet by ity of tablet 00:00: mouth in [place] [address] [facility] morning Dafter and 1 tablet at noon and 1 tablet in the evening. gabapentin 2023-0 Yes [id number] 600mg Take 1 [facility] 600 mg 4-18 tablet by ity of tablet 00:00: mouth in [address] morning Dafter and 1 tablet at noon and 1 tablet in the evening. gabapentin 2023-0 Yes [id number] 600mg Take 1 [facility] 600 mg 4-18 tablet by ity of tablet 00:00: mouth in [place] [address] the Medical morning Branch and 1 tablet at noon and 1 tablet in the evening. gabapentin 2023-0 Yes [id number] 600mg Take 1 [facility] 600 mg 4-18 tablet by ity of tablet 00:00: mouth in [place] [address] the Medical morning Branch and 1 tablet at noon and 1 tablet in the evening. gabapentin 2023-0 Yes [id number] 600mg Take 1 [facility] 600 mg 4-18 tablet by ity of tablet 00:00: mouth in [place] [address] the Medical morning Dafter and 1 tablet at noon and 1 tablet in the evening. gabapentin 2023-0 Yes [id number] 600mg Take 1 [facility] 600 mg 4-18 tablet by ity of tablet 00:00: mouth in [place] [address] [facility] morning Dafter and 1 tablet at noon and 1 tablet in the evening. gabapentin 2023-0 Yes [id number] 600mg Take 1 [facility] 600 mg 4-18 tablet by ity of tablet 00:00: mouth in [address] morning Dafter and 1 tablet at noon and 1 tablet in the evening. gabapentin 2023-0 Yes [id number] 600mg Take 1 [facility] 600 mg 4-18 tablet by ity of tablet 00:00: mouth in [address] morning Dafter and 1 tablet at noon and 1 tablet in the evening. gabapentin 2023-0 Yes [id number] 600mg Take 1 [facility] 600 mg 4-18 tablet by ity of tablet 00:00: mouth in [address] morning Dafter and 1 tablet at noon and 1 tablet in the evening. gabapentin 2023-0 Yes [id number] 600mg Take 1 [facility] 600 mg 4-18 tablet by ity of tablet 00:00: mouth in [address] Medical morning Dafter and 1 tablet at noon and 1 tablet in the evening. gabapentin 2023-0 Yes [id number] 600mg Take 1 [facility] 600 mg 4-18 tablet by ity of tablet 00:00: mouth in [address] morning Dafter and 1 tablet at noon and 1 tablet in the evening. gabapentin 2023-0 Yes [id number] 600mg Take 1 [facility] 600 mg 4-18 tablet by ity of tablet 00:00: mouth in [place] 00 the [facility] and 1 tablet at noon and 1 tablet in the evening. gabapentin 2023-0 Yes [id number] 600mg Take 1 [facility] 600 mg 4-18 tablet by ity of tablet 00:00: mouth in [address] and 1 tablet at noon and 1 tablet in the evening. gabapentin 2023-0 Yes [id number] 600mg Take 1 [facility] 600 mg 4-18 tablet by ity of tablet 00:00: mouth in [place] 00 [facility] and 1 tablet at noon and 1 tablet in the evening. gabapentin 2023-0 Yes [id number] 600mg Take 1 [facility] 600 mg 4-18 tablet by ity of tablet 00:00: mouth in [address] and 1 tablet at noon and 1 tablet in the evening. gabapentin 2023-0 Yes [id number] 600mg Take 1 [facility] 600 mg 4-18 tablet by ity of tablet 00:00: mouth in [address] and 1 tablet at noon and 1 tablet in the evening. gabapentin 2023-0 Yes [id number] 600mg Take 1 [facility] 600 mg 4-18 tablet by ity of tablet 00:00: mouth in [address] and 1 tablet at noon and 1 tablet in the evening. gabapentin 2023-0 Yes [id number] 600mg Take 1 [facility] 600 mg 4-18 tablet by ity of tablet 00:00: mouth in [address] and 1 tablet at noon and 1 tablet in the evening. gabapentin 2023-0 Yes [id number] 600mg Take 1 [facility] 600 mg 4-18 tablet by ity of tablet 00:00: mouth in [address] and 1 tablet at noon and 1 tablet in the evening. gabapentin 2023-0 202- No [id number] 600mg Take 1 [facility] 600 mg 4-18 07-18 tablet by ity of tablet 00:00: 00:00 mouth in [place] 00 :00 [facility] and 1 tablet at noon and 1 tablet in the evening. venlafaxine 2022-0 2022- No [id number] 75mg Take 1 [facility] XR 75 mg 24 4-18 05-22 capsule by i ty of hr capsule 00:00: 00:00 mouth [place] 00 :00 daily with Medical breakfast. Branch clonazePAM 2022-0 2022- No [id number] 1mg Take 1 [facility] 1 mg tablet 01-08- tablet by it y of 00:00: 00:00 mouth in [place] 00 :00 the Medical morning. Branch propranoloL 2022- No [id number] 20mg Take 2 [facility] 10 mg 4-18 -03 tablets by ity of tablet 00:00: 00:00 mouth in [place] 00 :00 the Medical morning Branch and 2 tablets in the evening. May increase to two tablets twice a day for anxiety/pa lpitations insulin Yes [id number] ADMINISTER [facility] degludec 4-04 80 UNITS ity of (TRESIBA 00:00: [place] 00 SKIN EVERY Medi brent U-200) 200 MORNING Branch unit/mL (3 mL) InPn semaglutide Yes [id number] Take U nivers (OZEMPIC) 4-04 0.25mg ity of 0.25 mg or 00:00: weekly [place] 0.5 mg (2 2 weeks, Medica l mg/3 mL) increase Branch PnIj to 0.5mg weekly if tolerate insulin Yes [id number] ADMINISTER [facility] degludec 4-04 80 UNITS ity of (TRESIBA 00:00: [place] 00 SKIN EVERY Medi brent U-200) 200 MORNING Branch unit/mL (3 mL) InPn semaglutide Yes [id number] Take Un luis (OZEMPIC) 4-04 0.25mg ity of 0.25 mg or 00:00: weekly for [place] 0.5 mg (2 00 2 weeks, Medica l mg/3 mL) increase Branch PnIj to 0.5mg weekly if tolerate insulin Yes [id number] ADMINISTER [facility] degludec 4-04 80 UNITS ity of (TRESIBA 00:00: [place] 00 SKIN EVERY Medi brent U-200) 200 MORNING Branch unit/mL (3 mL) InPn semaglutide Yes [id number] Take Un luis (OZEMPIC) 4-04 0.25mg ity of 0.25 mg or 00:00: weekly for [place] 0.5 mg (2 00 2 weeks, Medica l mg/3 mL) increase Branch PnIj to 0.5mg weekly if tolerate insulin 0 Yes [id number] ADMINISTER [facility] degludec 4-04 80 UNITS ity of (TRESIBA 00:00: [place] 00 SKIN EVERY Medi brent U-200) 200 MORNING Branch unit/mL (3 mL) InPn semaglutide Yes [id number] Take Un luis (OZEMPIC) 4-04 0.25mg ity of 0.25 mg or 00:00: weekly for [place] 0.5 mg (2 00 2 weeks, Medica l mg/3 mL) increase Branch PnIj to 0.5mg weekly if tolerate insulin Yes [id number] ADMINISTER [facility] degludec 4-04 80 UNITS ity of (TRESIBA 00:00: [place] 00 SKIN EVERY Medi brent U-200) 200 MORNING Branch unit/mL (3 mL) InPn semaglutide Yes [id number] Take Un luis (OZEMPIC) 4-04 0.25mg ity of 0.25 mg or 00:00: weekly for [place] 0.5 mg (2 00 2 weeks, Medica l mg/3 mL) increase Branch PnIj to 0.5mg weekly if tolerate insulin Yes [id number] ADMINISTER [facility] degludec 4-04 80 UNITS ity of (TRESIBA 00:00: [place] 00 SKIN EVERY Medi brent U-200) 200 MORNING Branch unit/mL (3 mL) InPn semaglutide Yes [id number] Take Un luis (OZEMPIC) 4-04 0.25mg ity of 0.25 mg or 00:00: weekly for [place] 0.5 mg (2 00 2 weeks, Medica l mg/3 mL) increase Branch PnIj to 0.5mg weekly if tolerate insulin Yes [id number] ADMINISTER [facility] degludec 4-04 80 UNITS ity of (TRESIBA 00:00: [place] 00 SKIN EVERY Medi brent U-200) 200 MORNING Branch unit/mL (3 mL) InPn semaglutide Yes [id number] Take Un luis (OZEMPIC) 4-04 0.25mg ity of 0.25 mg or 00:00: weekly for [place] 0.5 mg (2 00 2 weeks, Medica l mg/3 mL) increase Branch PnIj to 0.5mg weekly if tolerate insulin Yes [id number] ADMINISTER [facility] degludec 4-04 80 UNITS ity of (TRESIBA 00:00: [place] 00 SKIN EVERY Medi brent U-200) 200 MORNING Branch unit/mL (3 mL) InPn semaglutide Yes [id number] Take Un luis (OZEMPIC) 4-04 0.25mg ity of 0.25 mg or 00:00: weekly for [place] 0.5 mg (2 00 2 weeks, Medica l mg/3 mL) increase Branch PnIj to 0.5mg weekly if tolerate insulin Yes [id number] ADMINISTER [facility] degludec 4-04 80 UNITS ity of (TRESIBA 00:00: [place] 00 SKIN EVERY Medi brent U-200) 200 MORNING Branch unit/mL (3 mL) InPn semaglutide Yes [id number] Take Un luis (OZEMPIC) 4-04 0.25mg ity of 0.25 mg or 00:00: weekly for [place] 0.5 mg (2 00 2 weeks, Medica l mg/3 mL) increase Branch PnIj to 0.5mg weekly if tolerate insulin Yes [id number] ADMINISTER [facility] degludec 4-04 80 UNITS ity of (TRESIBA 00:00: [place] 00 SKIN EVERY Medi brent U-200) 200 MORNING Branch unit/mL (3 mL) InPn semaglutide Yes [id number] Take Un luis (OZEMPIC) 4-04 0.25mg ity of 0.25 mg or 00:00: weekly for [place] 0.5 mg (2 00 2 weeks, Medica l mg/3 mL) increase Branch PnIj to 0.5mg weekly if tolerate insulin Yes [id number] ADMINISTER [facility] degludec 4-04 80 UNITS ity of (TRESIBA 00:00: [place] 00 SKIN EVERY Medi brent U-200) 200 MORNING Branch unit/mL (3 mL) InPn semaglutide Yes [id number] Take Un luis (OZEMPIC) 4-04 0.25mg ity of 0.25 mg or 00:00: weekly for [place] 0.5 mg (2 00 2 weeks, Medica l mg/3 mL) increase Branch PnIj to 0.5mg weekly if tolerate insulin Yes [id number] ADMINISTER [facility] degludec 4-04 80 UNITS ity of (TRESIBA 00:00: [place] 00 SKIN EVERY Medi brent U-200) 200 MORNING Branch unit/mL (3 mL) InPn semaglutide Yes [id number] Take Un luis (OZEMPIC) 4-04 0.25mg ity of 0.25 mg or 00:00: weekly for [place] 0.5 mg (2 00 2 weeks, Medica l mg/3 mL) increase Branch PnIj to 0.5mg weekly if tolerate insulin Yes [id number] ADMINISTER [facility] degludec 4-04 80 UNITS ity of (TRESIBA 00:00: [place] THE [place] 00 SKIN EVERY Medi brent U-200) 200 MORNING Branch unit/mL (3 mL) InPn semaglutide Yes [id number] Take Un luis (OZEMPIC) 4-04 0.25mg ity of 0.25 mg or 00:00: weekly for [place] 0.5 mg (2 00 2 weeks, Medica l mg/3 mL) increase Branch PnIj to 0.5mg weekly if tolerate insulin Yes [id number] ADMINISTER [facility] degludec 4-04 80 UNITS ity of (TRESIBA 00:00: [place] THE [place] 00 SKIN EVERY Medi brent U-200) 200 MORNING Branch unit/mL (3 mL) InPn semaglutide Yes [id number] Take Un luis (OZEMPIC) 4-04 0.25mg ity of 0.25 mg or 00:00: weekly for [place] 0.5 mg (2 00 2 weeks, Medica l mg/3 mL) increase Branch PnIj to 0.5mg weekly if tolerate insulin Yes [id number] ADMINISTER [facility] degludec 4-04 80 UNITS ity of (TRESIBA 00:00: [place] 00 SKIN EVERY Medi brent U-200) 200 MORNING Branch unit/mL (3 mL) InPn semaglutide Yes [id number] Take Un luis (OZEMPIC) 4-04 0.25mg ity of 0.25 mg or 00:00: weekly for [place] 0.5 mg (2 00 2 weeks, Medica l mg/3 mL) increase Branch PnIj to 0.5mg weekly if tolerate insulin Yes [id number] ADMINISTER [facility] degludec 4-04 80 UNITS ity of (TRESIBA 00:00: [place] 00 SKIN EVERY Medi brent U-200) 200 MORNING Branch unit/mL (3 mL) InPn semaglutide Yes [id number] Take Un luis (OZEMPIC) 4-04 0.25mg ity of 0.25 mg or 00:00: weekly for [place] 0.5 mg (2 00 2 weeks, Medica l mg/3 mL) increase Branch PnIj to 0.5mg weekly if tolerate insulin Yes [id number] ADMINISTER [facility] degludec 4-04 80 UNITS ity of (TRESIBA 00:00: [place] 00 SKIN EVERY Medi brent U-200) 200 MORNING Branch unit/mL (3 mL) InPn semaglutide Yes [id number] Take Un luis (OZEMPIC) 4-04 0.25mg ity of 0.25 mg or 00:00: weekly for [place] 0.5 mg (2 00 2 weeks, Medica l mg/3 mL) increase Branch PnIj to 0.5mg weekly if tolerate insulin Yes [id number] ADMINISTER [facility] degludec 4-04 80 UNITS ity of (TRESIBA 00:00: [place] THE [place] 00 SKIN EVERY Medi brent U-200) 200 MORNING Branch unit/mL (3 mL) InPn semaglutide Yes [id number] Take Un luis (OZEMPIC) 4-04 0.25mg ity of 0.25 mg or 00:00: weekly for [place] 0.5 mg (2 00 2 weeks, Medica l mg/3 mL) increase Branch PnIj to 0.5mg weekly if tolerate insulin 0 Yes [id number] ADMINISTER [facility] degludec 4-04 80 UNITS ity of (TRESIBA 00:00: [place] THE [place] 00 SKIN EVERY Medi brent U-200) 200 MORNING Branch unit/mL (3 mL) InPn semaglutide Yes [id number] Take Un luis (OZEMPIC) 4-04 0.25mg ity of 0.25 mg or 00:00: weekly for [place] 0.5 mg (2 00 2 weeks, Medica l mg/3 mL) increase Branch PnIj to 0.5mg weekly if tolerate insulin Yes [id number] ADMINISTER [facility] degludec 4-04 80 UNITS ity of (TRESIBA 00:00: [place] THE [place] 00 SKIN EVERY Medi brent U-200) 200 MORNING Branch unit/mL (3 mL) InPn semaglutide Yes [id number] Take Un luis (OZEMPIC) 4-04 0.25mg ity of 0.25 mg or 00:00: weekly for [place] 0.5 mg (2 00 2 weeks, Medica l mg/3 mL) increase Branch PnIj to 0.5mg weekly if tolerate insulin Yes [id number] ADMINISTER [facility] degludec 4-04 80 UNITS ity of (TRESIBA 00:00: [place] THE [place] 00 SKIN EVERY Medi brent U-200) 200 MORNING Branch unit/mL (3 mL) InPn semaglutide Yes [id number] Take Un luis (OZEMPIC) 4-04 0.25mg ity of 0.25 mg or 00:00: weekly for [place] 0.5 mg (2 00 2 weeks, Medica l mg/3 mL) increase Branch PnIj to 0.5mg weekly if tolerate insulin Yes [id number] ADMINISTER [facility] degludec 4-04 80 UNITS ity of (TRESIBA 00:00: [place] THE [place] 00 SKIN EVERY Medi brent U-200) 200 MORNING Branch unit/mL (3 mL) InPn semaglutide Yes [id number] Take Un luis (OZEMPIC) 4-04 0.25mg ity of 0.25 mg or 00:00: weekly for [place] 0.5 mg (2 00 2 weeks, Medica l mg/3 mL) increase Branch PnIj to 0.5mg weekly if tolerate insulin Yes [id number] ADMINISTER [facility] degludec 4-04 80 UNITS ity of (TRESIBA 00:00: [place] THE [place] 00 SKIN EVERY Medi brent U-200) 200 MORNING Branch unit/mL (3 mL) InPn insulin Yes [id number] ADMINISTER [facility] degludec 4-04 80 UNITS ity of (TRESIBA 00:00: [place] THE [place] 00 SKIN EVERY Medi brent U-200) 200 MORNING Branch unit/mL (3 mL) InPn insulin Yes [id number] ADMINISTER [facility] degludec 4-04 80 UNITS ity of (TRESIBA 00:00: [place] THE [place] 00 SKIN EVERY Medi brent U-200) 200 MORNING Branch unit/mL (3 mL) InPn insulin Yes [id number] ADMINISTER [facility] degludec 4-04 80 UNITS ity of (TRESIBA 00:00: [place] THE [place] 00 SKIN EVERY Medi brent U-200) 200 MORNING Branch unit/mL (3 mL) InPn insulin Yes [id number] ADMINISTER [facility] degludec 4-04 80 UNITS ity of (TRESIBA 00:00: [place] THE [place] 00 SKIN EVERY Medi brent U-200) 200 MORNING Branch unit/mL (3 mL) InPn insulin Yes [id number] ADMINISTER [facility] degludec 4-04 80 UNITS ity of (TRESIBA 00:00: [place] THE [place] 00 SKIN EVERY Medi brent U-200) 200 MORNING Branch unit/mL (3 mL) InPn insulin Yes [id number] ADMINISTER [facility] degludec 4-04 80 UNITS ity of (TRESIBA 00:00: [place] THE [place] 00 SKIN EVERY Medi brent U-200) 200 MORNING Branch unit/mL (3 mL) InPn insulin Yes [id number] ADMINISTER [facility] degludec 4-04 80 UNITS ity of (TRESIBA 00:00: [place] THE [place] 00 SKIN EVERY Medi brent U-200) 200 MORNING Branch unit/mL (3 mL) InPn insulin Yes [id number] ADMINISTER [facility] degludec 4-04 80 UNITS ity of (TRESIBA 00:00: [place] THE [place] 00 SKIN EVERY Medi brent U-200) 200 MORNING Branch unit/mL (3 mL) InPn insulin Yes [id number] ADMINISTER [facility] degludec 4-04 80 UNITS ity of (TRESIBA 00:00: [place] THE [place] 00 SKIN EVERY Medi brent U-200) 200 MORNING Branch unit/mL (3 mL) InPn insulin Yes [id number] ADMINISTER [facility] degludec 4-04 80 UNITS ity of (TRESIBA 00:00: [place] THE [place] 00 SKIN EVERY Medi brent U-200) 200 MORNING Branch unit/mL (3 mL) InPn insulin Yes [id number] ADMINISTER [facility] degludec 4-04 80 UNITS ity of (TRESIBA 00:00: [place] THE [place] 00 SKIN EVERY Medi brent U-200) 200 MORNING Branch unit/mL (3 mL) InPn insulin Yes [id number] ADMINISTER [facility] degludec 4-04 80 UNITS ity of (TRESIBA 00:00: [place] THE [place] 00 SKIN EVERY Medi brent U-200) 200 MORNING Branch unit/mL (3 mL) InPn insulin Yes [id number] ADMINISTER [facility] de[facility]udec 4-04 80 UNITS ity of (TRESIBA 00:00: [place] THE [place] 00 SKIN EVERY Medi brent U-200) 200 MORNING Branch unit/mL (3 mL) InPn insulin Yes [id number] ADMINISTER [facility] de[facility]ec 4-04 80 UNITS ity of (TRESIBA 00:00: [place] THE [place] 00 SKIN EVERY Medi brent U-200) 200 MORNING Branch unit/mL (3 mL) InPn insulin Yes [id number] ADMINISTER [facility] de[facility]udec 4-04 80 UNITS ity of (TRESIBA 00:00: [place] THE [place] 00 SKIN EVERY Medi brent U-200) 200 MORNING Branch unit/mL (3 mL) InPn insulin Yes [id number] ADMINISTER [facility] de[facility]ec 4-04 80 UNITS ity of (TRESIBA 00:00: [place] THE [place] 00 SKIN EVERY Medi brent U-200) 200 MORNING Branch unit/mL (3 mL) InPn insulin Yes [id number] ADMINISTER [facility] degludec 4-04 80 UNITS ity of (TRESIBA 00:00: [place] THE [place] 00 SKIN EVERY Medi brent U-200) 200 MORNING Branch unit/mL (3 mL) InPn insulin Yes [id number] ADMINISTER [facility] de[facility]udec 4-04 80 UNITS ity of (TRESIBA 00:00: [place] THE [place] 00 SKIN EVERY Medi brent U-200) 200 MORNING Branch unit/mL (3 mL) InPn insulin Yes [id number] ADMINISTER [facility] de[facility]udec 4-04 80 UNITS ity of (TRESIBA 00:00: [place] THE [place] 00 SKIN EVERY Medi brent U-200) 200 MORNING Branch unit/mL (3 mL) InPn insulin Yes [id number] ADMINISTER [facility] de[facility]udec 4-04 80 UNITS ity of (TRESIBA 00:00: [place] THE [place] 00 SKIN EVERY Medi brent U-200) 200 MORNING Branch unit/mL (3 mL) InPn insulin Yes [id number] ADMINISTER [facility] de[facility]ec 4-04 80 UNITS ity of (TRESIBA 00:00: [place] THE [place] 00 SKIN EVERY Medi brent U-200) 200 MORNING Branch unit/mL (3 mL) InPn insulin Yes [id number] ADMINISTER [facility] de[facility]ec 4-04 80 UNITS ity of (TRESIBA 00:00: [place] THE [place] 00 SKIN EVERY Medi brent U-200) 200 MORNING Branch unit/mL (3 mL) InPn insulin Yes [id number] ADMINISTER [facility] de[facility]ec 4-04 80 UNITS ity of (TRESIBA 00:00: [place] THE [place] 00 SKIN EVERY Medi brent U-200) 200 MORNING Branch unit/mL (3 mL) InPn insulin Yes [id number] ADMINISTER [facility] de[facility]udec 4-04 80 UNITS ity of (TRESIBA 00:00: [place] THE [place] 00 SKIN EVERY Medi brent U-200) 200 MORNING Branch unit/mL (3 mL) InPn insulin Yes [id number] ADMINISTER [facility] 4-04 80 UNITS ity of ([place] 00:00[place] FLE[place] 00 SKIN EVERY Medi brent U-200) 200 MORNING Branch unit/mL (3 mL) InPn insulin Yes [id number] ADMINISTER [facility] 4-04 80 UNITS ity of ([place] 00:00: [place] FLE[place] 00 SKIN EVERY Medi brent U-200) 200 MORNING Branch unit/mL (3 mL) InPn insulin Yes [id number] ADMINISTER [facility] 4-04 80 UNITS ity of ([place]ESIB[place] 00:00: [place] THE [place] FLEXTOUCH 00 SKIN EVERY Medi brent U-200) 200 MORNING Branch unit/mL (3 mL) InPn insulin Yes [id number] ADMINISTER [facility] 4-04 80 UNITS ity of ([place]ESIBA 00:00: [place] THE [place] FLEXTOUCH 00 SKIN EVERY Medi brent U-200) 200 MORNING Branch unit/mL (3 mL) InPn insulin Yes [id number] ADMINISTER [facility] 4-04 80 UNITS ity of (TRESIBA 00:00: [place] THE [place] FLEXTOU[place] 00 SKIN EVERY Medi brent U-200) 200 MORNING Branch unit/mL (3 mL) InPn insulin Yes [id number] ADMINISTER [facility] 4-04 80 UNITS ity of (TRESIBA 00:00: [place] THE [place] FLEXTOU[place] 00 SKIN EVERY Medi brent U-200) 200 MORNING Branch unit/mL (3 mL) InPn insulin Yes [id number] ADMINISTER [facility] 4-04 80 UNITS ity of (TRESIBA 00:00: [place] THE [place] FLEXTOU[place] 00 SKIN EVERY Medi brent U-200) 200 MORNING Branch unit/mL (3 mL) InPn insulin Yes [id number] ADMINISTER [facility] 4-04 80 UNITS ity of (TRESIBA 00:00: [place] THE [place] FLEXTOUCH 00 SKIN EVERY Medi brent U-200) 200 MORNING Branch unit/mL (3 mL) InPn insulin 2022-0 Yes [id number] ADMINISTER [facility] 04 80 UNITS ity of ([place]ESIBA 00:00: [place] THE [place] FLEXTOUCH 00 SKIN EVERY Medi brent U-200) 200 MORNING Branch unit/mL (3 mL) InPn insulin 2022-0 Yes [id number] ADMINISTER [facility] 12-25 80 UNITS ity of (TRESIBA 00:00: [place] THE [place] FLEXTOUCH 00 SKIN EVERY Medi brent U-200) 200 MORNING Branch unit/mL (3 mL) InPn semaglutide 2022-0 2022- No [id number] Take U nivers (OZEMPIC) 12-25-12 0.25mg ity of 0.25 mg or 00:00: 00:00 weekly for [place] 0.5 mg (2 00 :00 2 weeks, Medica l mg/3 mL) increase Branch PnIj to 0.5mg weekly if tolerate semaglutide 2022-0 2022- No [id number] Take U nivers (OZEMPIC) 12-25-12 0.25mg ity of 0.25 mg or 00:00: 00:00 weekly for [place] 0.5 mg (2 00 :00 2 weeks, Medica l mg/3 mL) increase Branch PnIj to 0.5mg weekly if tolerate clonazePAM 2022-0 Yes [id number] 1mg Take 1 U nivers 1 mg tablet 4-01 tablet by ity of 00:00: mouth in [place] the Medical morning. Branch clonazePAM 2022-0 Yes [id number] 1mg Take 1 U nivers 1 mg tablet 4-01 tablet by ity of 00:00: mouth in [place] the Medical morning. Branch clonazePAM 2022-0 Yes [id number] 1mg Take 1 U nivers 1 mg tablet 4-01 tablet by ity of 00:00: mouth in [place] the Medical morning. Branch clonazePAM 2022-0 Yes [id number] 1mg Take 1 U nivers 1 mg tablet 4-01 tablet by ity of 00:00: mouth in [place] the Medical morning. Branch clonazePAM 2022-0 Yes [id number] 1mg Take 1 U nivers 1 mg tablet 4-01 tablet by ity of 00:00: mouth in [place] the Medical morning. Branch clonazePAM 2023-0 Yes [id number] 1mg Take 1 U nivers 1 mg tablet 4-01 tablet by ity of 00:00: mouth in [place] the morning. Branch clonazePAM 2023-0 Yes [id number] 1mg Take 1 U nivers 1 mg tablet 4-01 tablet by ity of 00:00: mouth in [place] the Medical morning. Branch clonazePAM 2023-0 Yes [id number] 1mg Take 1 U nivers 1 mg tablet 4-01 tablet by ity of 00:00: mouth in [place] the Medical morning. Branch clonazePAM 2023-0 Yes [id number] 1mg Take 1 U nivers 1 mg tablet 4-01 tablet by ity of 00:00: mouth in [place] the morning. Branch clonazePAM 2023-0 Yes [id number] 1mg Take 1 U nivers 1 mg tablet 4-01 tablet by ity of 00:00: mouth in [place] the morning. Branch clonazePAM 2023-0 Yes [id number] 1mg Take 1 U nivers 1 mg tablet 4-01 tablet by ity of 00:00: mouth in [place] the morning. Branch clonazePAM 2023-0 Yes [id number] 1mg Take 1 U nivers 1 mg tablet 4-01 tablet by ity of 00:00: mouth in [place] the Medical morning. Branch clonazePAM 2023-0 Yes [id number] 1mg Take 1 U nivers 1 mg tablet 4-01 tablet by ity of 00:00: mouth in [place] the Medical morning. Branch clonazePAM 2023-0 Yes [id number] 1mg Take 1 U nivers 1 mg tablet 4-01 tablet by ity of 00:00: mouth in [place] the Medical morning. Branch clonazePAM 2023-0 Yes [id number] 1mg Take 1 U nivers 1 mg tablet 4-01 tablet by ity of 00:00: mouth in [place] the Medical morning. Branch clonazePAM 2023-0 2023- No [id number] 1mg Take 1 [facility] 1 mg tablet 4-01 -18 tablet by it y of 00:00: 00:00 mouth in [place] 00 :00 the Medical morning. Branch clonazePAM 2023-0 2023- No [id number] 1mg Take 1 [facility] 1 mg tablet 12-22 tablet by it y of 00:00: 00:00 mouth in [place] 00 :[address] [facility] morning. Branch diclofenac 2022-0 2022- No [id number] 75mg Take 1 Univers 75 mg EC 3-28 04-28 tablet by ity o f tablet 00:00: 04:59 mouth in [place] 00 :00 the [facility] and 1 tablet in the evening. Take with meals. Do all this for 30 days. diclofenac 2022-0 2022- No [id number] 75mg Take 1 Univers 75 mg EC 3-28 04-28 tablet by ity o f tablet 00:00: 04:59 mouth in [place] 00 :[address] [facility] morning Dafter and 1 tablet in the evening. Take with meals. Do all this for 30 days. diclofenac 2022-0 2022- No [id number] 75mg Take 1 [facility] 75 mg EC 3-28 04-28 tablet by ity o f tablet 00:00: 04:59 mouth in [place] 00 :00 the [facility] and 1 tablet in the evening. Take with meals. Do all this for 30 days. diclofenac 2022-0 2022- No [id number] 75mg Take 1 [facility] 75 mg EC 3-28 04-28 tablet by ity o f tablet 00:00: 04:59 mouth in [place] 00 :00 the [facility] and 1 tablet in the evening. Take with meals. Do all this for 30 days. diclofenac 2022-0 2022- No [id number] 75mg Take 1 [facility] 75 mg EC 3-28 04-28 tablet by ity o f tablet 00:00: 04:59 mouth in [place] 00 :00 the [facility] and 1 tablet in the evening. Take with meals. Do all this for 30 days. diclofenac 2022-0 3- No [id number] 75mg Take 1 [facility] 75 mg EC 3-28 04-28 tablet by ity o f tablet 00:00: 04:59 mouth in [place] 00 :00 the [facility] and 1 tablet in the evening. Take with meals. Do all this for 30 days. diclofenac 2022-0 3- No [id number] 75mg Take 1 [facility] 75 mg EC 3-28 04-28 tablet by ity o f tablet 00:00: 04:59 mouth in [place] 00 :00 the [facility] and 1 tablet in the evening. Take with meals. Do all this for 30 days. diclofenac 2023-0 2023- No [id number] 75mg Take 1 [facility] 75 mg EC 3-28 04-28 tablet by ity o f tablet 00:00: 04:59 mouth in [place] 00 :00 the Medical morning Branch and 1 tablet in the evening. Take with meals. Do all this for 30 days. diclofenac 2023-0 2023- No [id number] 75mg Take 1 [facility] 75 mg EC 3-28 04-28 tablet by ity o f tablet 00:00: 04:59 mouth in [place] 00 :00 the Medical morning Branch and 1 tablet in the evening. Take with meals. Do all this for 30 days. diclofenac 2023-0 2023- No [id number] 75mg Take 1 [facility] 75 mg EC 3-28 04-28 tablet by ity o f tablet 00:00: 04:59 mouth in [place] 00 :00 the Medical morning Dafter and 1 tablet in the evening. Take with meals. Do all this for 30 days. diclofenac 2023-0 2023- No [id number] 75mg Take 1 [facility] 75 mg EC 3-28 04-28 tablet by ity o f tablet 00:00: 04:59 mouth in [place] 00 :[address] [facility] morning Branch and 1 tablet in the evening. Take with meals. Do all this for 30 days. diclofenac 3-0 2023- No [id number] 75mg Take 1 [facility] 75 mg EC 3-28 04-28 tablet by ity o f tablet 00:00: 04:59 mouth in [place] 00 :[address] [facility] morning Dafter and 1 tablet in the evening. Take with meals. Do all this for 30 days. diclofenac 2023-0 2023- No [id number] 75mg Take 1 [facility] 75 mg EC 3-28 04-28 tablet by ity o f tablet 00:00: 04:59 mouth in [place] 00 :00 the Medical morning Branch and 1 tablet in the evening. Take with meals. Do all this for 30 days. diclofenac 2023-0 2023- No [id number] 75mg Take 1 [facility] 75 mg EC 3-28 04-28 tablet by ity o f tablet 00:00: 04:59 mouth in [place] 00 :[address] [facility] morning Dafter and 1 tablet in the evening. Take with meals. Do all this for 30 days. diclofenac 2023-0 2023- No [id number] 75mg Take 1 [facility] 75 mg EC 3-28 04-28 tablet by ity o f tablet 00:00: 04:59 mouth in [place] 00 :00 the Medical morning Branch and 1 tablet in the evening. Take with meals. Do all this for 30 days. diclofenac 2023-0 2023- No [id number] 75mg Take 1 [facility] 75 mg EC 3-28 04-28 tablet by ity o f tablet 00:00: 04:59 mouth in [place] 00 :00 the Medical morning Branch and 1 tablet in the evening. Take with meals. Do all this for 30 days. diclofenac 2023-0 2023- No [id number] 75mg Take 1 [facility] 75 mg EC 3-28 04-28 tablet by ity o f tablet 00:00: 04:59 mouth in [place] 00 :00 the Medical morning Branch and 1 tablet in the evening. Take with meals. Do all this for 30 days. diclofenac 2023-0 2023- No [id number] 75mg Take 1 [facility] 75 mg EC 3-28 -28 tablet by ity o f tablet 00:00: 04:59 mouth in [place] 00 :[address] [facility] morning Branch and 1 tablet in the evening. Take with meals. Do all this for 30 days. diclofenac 2023-0 2023- No [id number] 75mg Take 1 [facility] 75 mg EC 3-28 -25 tablet by ity o f tablet 00:00: 00:00 mouth in [place] 00 :[address] [facility] morning Branch and 1 tablet in the evening. Take with meals. Do all this for 30 days. GABAPENTIN 2023-0 Yes [id number] TAKE 1 [facility] 600 mg 3-27 TABLET BY ity of tablet 00:00: MOUTH [address] Medical TIMES Branch DAILY GABAPENTIN 2023-0 Yes [id number] TAKE 1 [facility] 600 mg 3-27 TABLET BY ity of tablet 00:00: MOUTH [place] [facility] Medical TIMES Branch DAILY GABAPENTIN 2023-0 Yes [id number] TAKE 1 Univers 600 mg 3-27 TABLET BY ity of tablet 00:00: [facility] THREE Medical TIMES Branch DAILY GABAPENTIN 2023-0 Yes [id number] TAKE 1 [facility] 600 mg 3-27 TABLET BY ity of tablet 00:00: [facility] THREE Medical TIMES Branch DAILY GABAPENTIN 2023-0 Yes [id number] TAKE 1 [facility] 600 mg 3-27 TABLET BY ity of tablet 00:00: MOUTH [place] THREE Medical TIMES Branch DAILY GABAPENTIN 2023-0 Yes [id number] TAKE 1 [facility] 600 mg 3-27 TABLET BY ity of tablet 00:00: [facility] THREE Medical TIMES Branch DAILY GABAPENTIN 2023-0 Yes [id number] TAKE 1 Univers 600 mg 3-27 TABLET BY ity of tablet 00:00: [facility] THREE Medical TIMES Branch DAILY GABAPENTIN 2023-0 Yes [id number] TAKE 1 [facility] 600 mg 3-27 TABLET BY ity of tablet 00:00: [place] [id number] THREE Medical TIMES Branch DAILY GABAPENTIN 2023-0 Yes [id number] TAKE 1 [facility] 600 mg 3-27 TABLET BY ity of tablet 00:00: [facility] THREE Medical TIMES Branch DAILY GABAPENTIN 2023-0 Yes [id number] TAKE 1 [facility] 600 mg 3-27 TABLET BY ity of tablet 00:00: [facility] THREE Medical TIMES Branch DAILY GABAPENTIN 2023-0 Yes [id number] TAKE 1 [facility] 600 mg 3-27 TABLET BY ity of tablet 00:00: [place] [id number] THREE Medical TIMES Branch DAILY GABAPENTIN 2023-0 Yes [id number] TAKE 1 [facility] 600 mg 3-27 TABLET BY ity of tablet 00:00: [place] [address] THREE Medical TIMES Branch DAILY GABAPENTIN 2023-0 2023- No [id number] TAKE 1 [facility] 600 mg 3-27 04-18 TABLET BY ity of tablet 00:00: 00:00 [facility] 00 :00 THREE Medical TIMES Branch DAILY GABAPENTIN 2023-0 2023- No [id number] TAKE 1 [facility] 600 mg 3-27 04-18 TABLET BY ity of tablet 00:00: 00:00 [facility] 00 :00 THREE Medical TIMES Branch DAILY carvediloL 2023-0 2023- No 25mg Take 25 mg Univers 25 mg 3-21 -21 by mouth ity of tablet 14:22: 00:00 in the [place] 01 :00 morning Medical and 25 mg Branch in the evening. Take with meals. carvediloL 2023-0 2023- No 25mg Take 25 mg Univers 25 mg 3-21 -21 by mouth ity of tablet 14:22: 00:00 in the [place] 01 :00 morning Medical and 25 mg Branch in the evening. Take with meals. carvediloL 2023-0 2023- No 25mg Take 25 mg Univers 25 mg 3-21 -21 by mouth ity of tablet 14:22: 00:00 in the [place] 01 :00 morning Medical and 25 mg Branch in the evening. Take with meals. carvediloL 3-0 2023- No 25mg Take 25 mg Univers 25 mg 3-21 -21 by mouth ity of tablet 14:22: 00:00 in the [place] 01 :00 morning Medical and 25 mg Branch in the evening. Take with meals. propranoloL 2022-0 Yes [id number] 10mg Take 1 Univers 10 mg 3-21 tablet by ity of tablet 00:00: mouth in [place] 00 the Medical morning Branch and 1 tablet in the evening. May increase to two tablets twice a day for anxiety/pa lpitations hydrOXYzine 2022-0 Yes [id number] 25mg Take 1 [facility] 25 mg 3-21 tablet by ity of tablet 00:00: mouth [place] 00 every 6 Medical (six) Branch hours as needed for Anxiety. propranoloL 2022-0 Yes [id number] 10mg Take 1 Univers 10 mg 3-21 tablet by ity of tablet 00:00: mouth in [place] 00 the Medical morning Branch and 1 tablet in the evening. May increase to two tablets twice a day for anxiety/pa lpitations hydrOXYzine 2022-0 Yes [id number] 25mg Take 1 [facility] 25 mg 3-21 tablet by ity of tablet 00:00: mouth [place] 00 every 6 Medical (six) Branch hours as needed for Anxiety. propranoloL 2022-0 Yes [id number] 10mg Take 1 Univers 10 mg 3-21 tablet by ity of tablet 00:00: mouth in [place] 00 the Medical morning Branch and 1 tablet in the evening. May increase to two tablets twice a day for anxiety/pa lpitations hydrOXYzine 2022-0 Yes [id number] 25mg Take 1 [facility] 25 mg 3-21 tablet by ity of tablet 00:00: mouth [place] 00 every 6 Medical (six) Branch hours as needed for Anxiety. propranoloL 3-0 Yes [id number] 10mg Take 1 [facility] 10 mg 3-21 tablet by ity of tablet 00:00: mouth in [place] 00 the Medical morning Branch and 1 tablet in the evening. May increase to two tablets twice a day for anxiety/pa lpitations hydrOXYzine 3-0 Yes [id number] 25mg Take 1 Univers 25 mg 3-21 tablet by ity of tablet 00:00: mouth [place] 00 every 6 Medical (six) Branch hours as needed for Anxiety. propranoloL 2023-0 Yes [id number] 10mg Take 1 [facility] 10 mg 3-21 tablet by ity of tablet 00:00: mouth in [place] 00 the Medical morning Branch and 1 tablet in the evening. May increase to two tablets twice a day for anxiety/pa lpitations hydrOXYzine 2023-0 Yes [id number] 25mg Take 1 [facility] 25 mg 3-21 tablet by ity of tablet 00:00: mouth [place] 00 every 6 Medical (six) Branch hours as needed for Anxiety. propranoloL 2023-0 Yes [id number] 10mg Take 1 [facility] 10 mg 3-21 tablet by ity of tablet 00:00: mouth in [place] 00 the Medical morning Branch and 1 tablet in the evening. May increase to two tablets twice a day for anxiety/pa lpitations hydrOXYzine 2023-0 Yes [id number] 25mg Take 1 [facility] 25 mg 3-21 tablet by ity of tablet 00:00: mouth [place] 00 every 6 Medical (six) Branch hours as needed for Anxiety. propranoloL 2023-0 Yes [id number] 10mg Take 1 [facility] 10 mg 3-21 tablet by ity of tablet 00:00: mouth in [place] 00 the Medical morning Branch and 1 tablet in the evening. May increase to two tablets twice a day for anxiety/pa lpitations hydrOXYzine 2023-0 Yes [id number] 25mg Take 1 [facility] 25 mg 3-21 tablet by ity of tablet 00:00: mouth [place] 00 every 6 Medical (six) Branch hours as needed for Anxiety. propranoloL 2023-0 Yes [id number] 10mg Take 1 [facility] 10 mg 3-21 tablet by ity of tablet 00:00: mouth in [place] 00 the Medical morning Branch and 1 tablet in the evening. May increase to two tablets twice a day for anxiety/pa lpitations hydrOXYzine 2023-0 Yes [id number] 25mg Take 1 [facility] 25 mg 3-21 tablet by ity of tablet 00:00: mouth [place] 00 every 6 Medical (six) Branch hours as needed for Anxiety. propranoloL 2023-0 Yes [id number] 10mg Take 1 [facility] 10 mg 3-21 tablet by ity of tablet 00:00: mouth in [place] 00 the Medical morning Branch and 1 tablet in the evening. May increase to two tablets twice a day for anxiety/pa lpitations hydrOXYzine 2023-0 Yes [id number] 25mg Take 1 [facility] 25 mg 3-21 tablet by ity of tablet 00:00: mouth [place] 00 every 6 Medical (six) Branch hours as needed for Anxiety. propranoloL 2023-0 Yes [id number] 10mg Take 1 [facility] 10 mg 3-21 tablet by ity of tablet 00:00: mouth in [place] 00 the Medical morning Branch and 1 tablet in the evening. May increase to two tablets twice a day for anxiety/pa lpitations hydrOXYzine 2023-0 Yes [id number] 25mg Take 1 [facility] 25 mg 3-21 tablet by ity of tablet 00:00: mouth [place] 00 every 6 Medical (six) Branch hours as needed for Anxiety. propranoloL 2023-0 Yes [id number] 10mg Take 1 [facility] 10 mg 3-21 tablet by ity of tablet 00:00: mouth in [place] 00 the Medical morning Branch and 1 tablet in the evening. May increase to two tablets twice a day for anxiety/pa lpitations hydrOXYzine 3-0 Yes [id number] 25mg Take 1 [facility] 25 mg 3-21 tablet by ity of tablet 00:00: mouth [place] 00 every 6 Medical (six) Branch hours as needed for Anxiety. propranoloL 2023-0 Yes [id number] 10mg Take 1 [facility] 10 mg 3-21 tablet by ity of tablet 00:00: mouth in [place] 00 the Medical morning Branch and 1 tablet in the evening. May increase to two tablets twice a day for anxiety/pa lpitations hydrOXYzine 3-0 Yes [id number] 25mg Take 1 [facility] 25 mg 3-21 tablet by ity of tablet 00:00: mouth [place] 00 every 6 Medical (six) Branch hours as needed for Anxiety. propranoloL 2023-0 Yes [id number] 10mg Take 1 [facility] 10 mg 3-21 tablet by ity of tablet 00:00: mouth in [place] 00 the Medical morning Branch and 1 tablet in the evening. May increase to two tablets twice a day for anxiety/pa lpitations hydrOXYzine 2023-0 Yes [id number] 25mg Take 1 [facility] 25 mg 3-21 tablet by ity of tablet 00:00: mouth [place] 00 every 6 Medical (six) Branch hours as needed for Anxiety. propranoloL 2023-0 Yes [id number] 10mg Take 1 [facility] 10 mg 3-21 tablet by ity of tablet 00:00: mouth in [place] 00 the Medical morning Branch and 1 tablet in the evening. May increase to two tablets twice a day for anxiety/pa lpitations hydrOXYzine 2023-0 Yes [id number] 25mg Take 1 [facility] 25 mg 3-21 tablet by ity of tablet 00:00: mouth [place] 00 every 6 Medical (six) Branch hours as needed for Anxiety. propranoloL 2023-0 Yes [id number] 10mg Take 1 [facility] 10 mg 3-21 tablet by ity of tablet 00:00: mouth in [place] 00 the Medical morning Branch and 1 tablet in the evening. May increase to two tablets twice a day for anxiety/pa lpitations hydrOXYzine 2023-0 Yes [id number] 25mg Take 1 [facility] 25 mg 3-21 tablet by ity of tablet 00:00: mouth [place] 00 every 6 Medical (six) Branch hours as needed for Anxiety. hydrOXYzine 2023-0 Yes [id number] 25mg Take 1 [facility] 25 mg 3-21 tablet by ity of tablet 00:00: mouth [place] 00 every 6 Medical (six) Branch hours as needed for Anxiety. hydrOXYzine 2023-0 Yes [id number] 25mg Take 1 [facility] 25 mg 3-21 tablet by ity of tablet 00:00: mouth [place] 00 every 6 Medical (six) Branch hours as needed for Anxiety. hydrOXYzine 2023-0 Yes [id number] 25mg Take 1 [facility] 25 mg 3-21 tablet by ity of tablet 00:00: mouth [place] 00 every 6 Medical (six) Branch hours as needed for Anxiety. hydrOXYzine 2023-0 Yes [id number] 25mg Take 1 [facility] 25 mg 3-21 tablet by ity of tablet 00:00: mouth [place] 00 every 6 Medical (six) Branch hours as needed for Anxiety. hydrOXYzine 2023-0 Yes [id number] 25mg Take 1 [facility] 25 mg 3-21 tablet by ity of tablet 00:00: mouth [place] 00 every 6 Medical (six) Branch hours as needed for Anxiety. hydrOXYzine 2023-0 Yes [id number] 25mg Take 1 [facility] 25 mg 3-21 tablet by ity of tablet 00:00: mouth [place] 00 every 6 Medical (six) Branch hours as needed for Anxiety. hydrOXYzine 2023-0 Yes [id number] 25mg Take 1 [facility] 25 mg 3-21 tablet by ity of tablet 00:00: mouth [place] 00 every 6 Medical (six) Branch hours as needed for Anxiety. hydrOXYzine 2023-0 Yes [id number] 25mg Take 1 [facility] 25 mg 3-21 tablet by ity of tablet 00:00: mouth [place] 00 every 6 Medical (six) Branch hours as needed for Anxiety. hydrOXYzine 2023-0 Yes [id number] 25mg Take 1 [facility] 25 mg 3-21 tablet by ity of tablet 00:00: mouth [place] 00 every 6 Medical (six) Branch hours as needed for Anxiety. hydrOXYzine 2023-0 Yes [id number] 25mg Take 1 [facility] 25 mg 3-21 tablet by ity of tablet 00:00: mouth [place] 00 every 6 Medical (six) Branch hours as needed for Anxiety. hydrOXYzine 2023-0 Yes [id number] 25mg Take 1 [facility] 25 mg 3-21 tablet by ity of tablet 00:00: mouth [place] 00 every 6 Medical (six) Branch hours as needed for Anxiety. hydrOXYzine 2023-0 Yes [id number] 25mg Take 1 [facility] 25 mg 3-21 tablet by ity of tablet 00:00: mouth [place] 00 every 6 Medical (six) Branch hours as needed for Anxiety. hydrOXYzine 2023-0 Yes [id number] 25mg Take 1 [facility] 25 mg 3-21 tablet by ity of tablet 00:00: mouth [place] 00 every 6 Medical (six) Branch hours as needed for Anxiety. hydrOXYzine 2023-0 Yes [id number] 25mg Take 1 [facility] 25 mg 3-21 tablet by ity of tablet 00:00: mouth [place] 00 every 6 Medical (six) Branch hours as needed for Anxiety. hydrOXYzine 2023-0 Yes [id number] 25mg Take 1 [facility] 25 mg 3-21 tablet by ity of tablet 00:00: mouth [place] 00 every 6 Medical (six) Branch hours as needed for Anxiety. hydrOXYzine 2023-0 Yes [id number] 25mg Take 1 [facility] 25 mg 3-21 tablet by ity of tablet 00:00: mouth [place] 00 every 6 Medical (six) Branch hours as needed for Anxiety. hydrOXYzine 2023-0 Yes [id number] 25mg Take 1 [facility] 25 mg 3-21 tablet by ity of tablet 00:00: mouth [place] 00 every 6 Medical (six) Branch hours as needed for Anxiety. hydrOXYzine 2023-0 Yes [id number] 25mg Take 1 [facility] 25 mg 3-21 tablet by ity of tablet 00:00: mouth [place] 00 every 6 Medical (six) Branch hours as needed for Anxiety. hydrOXYzine 2023-0 Yes [id number] 25mg Take 1 [facility] 25 mg 3-21 tablet by ity of tablet 00:00: mouth [place] 00 every 6 Medical (six) Branch hours as needed for Anxiety. hydrOXYzine 2023-0 Yes [id number] 25mg Take 1 [facility] 25 mg 3-21 tablet by ity of tablet 00:00: mouth [place] 00 every 6 Medical (six) Branch hours as needed for Anxiety. hydrOXYzine 2023-0 Yes [id number] 25mg Take 1 [facility] 25 mg 3-21 tablet by ity of tablet 00:00: mouth [place] 00 every 6 Medical (six) Branch hours as needed for Anxiety. hydrOXYzine 2023-0 Yes [id number] 25mg Take 1 [facility] 25 mg 3-21 tablet by ity of tablet 00:00: mouth [place] 00 every 6 Medical (six) Branch hours as needed for Anxiety. hydrOXYzine 2023-0 Yes [id number] 25mg Take 1 [facility] 25 mg 3-21 tablet by ity of tablet 00:00: mouth [place] 00 every 6 Medical (six) Branch hours as needed for Anxiety. hydrOXYzine 2023-0 Yes [id number] 25mg Take 1 [facility] 25 mg 3-21 tablet by ity of tablet 00:00: mouth [place] 00 every 6 Medical (six) Branch hours as needed for Anxiety. hydrOXYzine 2023-0 Yes [id number] 25mg Take 1 [facility] 25 mg 3-21 tablet by ity of tablet 00:00: mouth [place] 00 every 6 Medical (six) Branch hours as needed for Anxiety. hydrOXYzine 2023-0 Yes [id number] 25mg Take 1 [facility] 25 mg 3-21 tablet by ity of tablet 00:00: mouth [place] 00 every 6 Medical (six) Branch hours as needed for Anxiety. hydrOXYzine 2023-0 Yes [id number] 25mg Take 1 [facility] 25 mg 3-21 tablet by ity of tablet 00:00: mouth [place] 00 every 6 Medical (six) Branch hours as needed for Anxiety. hydrOXYzine 2023-0 Yes [id number] 25mg Take 1 [facility] 25 mg 3-21 tablet by ity of tablet 00:00: mouth [place] 00 every 6 Medical (six) Branch hours as needed for Anxiety. hydrOXYzine 2023-0 Yes [id number] 25mg Take 1 [facility] 25 mg 3-21 tablet by ity of tablet 00:00: mouth [place] 00 every 6 Medical (six) Branch hours as needed for Anxiety. hydrOXYzine 2023-0 Yes [id number] 25mg Take 1 [facility] 25 mg 3-21 tablet by ity of tablet 00:00: mouth [place] 00 every 6 Medical (six) Branch hours as needed for Anxiety. hydrOXYzine 2023-0 Yes [id number] 25mg Take 1 [facility] 25 mg 3-21 tablet by ity of tablet 00:00: mouth [place] 00 every 6 Medical (six) Branch hours as needed for Anxiety. hydrOXYzine 2023-0 Yes [id number] 25mg Take 1 [facility] 25 mg 3-21 tablet by ity of tablet 00:00: mouth [place] 00 every 6 Medical (six) Branch hours as needed for Anxiety. hydrOXYzine 2023-0 Yes [id number] 25mg Take 1 [facility] 25 mg 3-21 tablet by ity of tablet 00:00: mouth [place] 00 every 6 Medical (six) Branch hours as needed for Anxiety. hydrOXYzine 2023-0 Yes [id number] 25mg Take 1 [facility] 25 mg 3-21 tablet by ity of tablet 00:00: mouth [place] 00 every 6 Medical (six) Branch hours as needed for Anxiety. hydrOXYzine 2023-0 Yes [id number] 25mg Take 1 [facility] 25 mg 3-21 tablet by ity of tablet 00:00: mouth [place] 00 every 6 Medical (six) Branch hours as needed for Anxiety. hydrOXYzine 2023-0 Yes [id number] 25mg Take 1 Univers 25 mg 3-21 tablet by ity of tablet 00:00: mouth [place] 00 every 6 Medical (six) Branch hours as needed for Anxiety. hydrOXYzine 2023-0 Yes [id number] 25mg Take 1 [facility] 25 mg 3-21 tablet by [facility]y of tablet 00:00: mouth [place] 00 every 6 Medical (six) Branch hours as needed for Anxiety. hydrOXYzine 2023-0 Yes [id number] 25mg Take 1 [facility] 25 mg 3-21 tablet by ity of tablet 00:00: mouth [place] 00 every 6 Medical (six) Branch hours as needed for Anxiety. hydrOXYzine 2023-0 Yes [id number] 25mg Take 1 [facility] 25 mg 3-21 tablet by [facility]y of tablet 00:00: mouth [place] 00 every 6 Medical (six) Branch hours as needed for Anxiety. hydrOXYzine 2023-0 Yes [id number] 25mg Take 1 [facility] 25 mg 3-21 tablet by ity of tablet 00:00: mouth [place] 00 every 6 Medical (six) Branch hours as needed for Anxiety. hydrOXYzine 2023-0 Yes [id number] 25mg Take 1 [facility] 25 mg 3-21 tablet by ity of tablet 00:00: mouth [place] 00 every 6 Medical (six) Branch hours as needed for Anxiety. hydrOXYzine 2023-0 Yes [id number] 25mg Take 1 [facility] 25 mg 3-21 tablet by ity of tablet 00:00: mouth [place] 00 every 6 Medical (six) Branch hours as needed for Anxiety. hydrOXYzine 2023-0 Yes [id number] 25mg Take 1 [facility] 25 mg 3-21 tablet by ity of tablet 00:00: mouth [place] 00 every 6 Medical (six) Branch hours as needed for Anxiety. hydrOXYzine 2023-0 Yes [id number] 25mg Take 1 [facility] 25 mg 3-21 tablet by ity of tablet 00:00: mouth [place] 00 every 6 Medical (six) Branch hours as needed for Anxiety. hydrOXYzine 2023-0 Yes [id number] 25mg Take 1 [facility] 25 mg 3-21 tablet by ity of tablet 00:00: mouth [place] 00 every 6 Medical (six) Branch hours as needed for Anxiety. hydrOXYzine 2023-0 Yes [id number] 25mg Take 1 [facility] 25 mg 3-21 tablet by [facility]y of tablet 00:00: mouth [place] 00 every 6 Medical (six) Branch hours as needed for Anxiety. hydrOXYzine 2023-0 Yes [id number] 25mg Take 1 [facility] 25 mg 3-21 tablet by ity of tablet 00:00: mouth [place] 00 every 6 Medical (six) Branch hours as needed for Anxiety. propranoloL 2023-0 2023- No [id number] 10mg Take 1 [facility] 10 mg 3-21 04-18 tablet by ity of tablet 00:00: 00:00 mouth in [place] 00 :00 the Medical morning Branch and 1 tablet in the evening. May increase to two tablets twice a day for anxiety/pa lpitations propranoloL 2023-0 2023- No [id number] 10mg Take 1 [facility] 10 mg 3-21 04-18 tablet by ity of tablet 00:00: 00:00 mouth in [place] 00 :00 the Medical morning Branch and 1 tablet in the evening. May increase to two tablets twice a day for anxiety/pa lpitations methylPREDN 2023-0 Yes [id number] 84mg Take 21 [facility] ISolone 3-16 tablets by ity of (MEDROL, 00:00: mouth [place] YOU,) 4 mg 00 SEE-INSTRU Med ical tablets CTIONS. Branch follow package directions methylPREDN 2023-0 Yes [id number] 84mg Take 21 [facility] ISolone 3-16 tablets by ity of (MEDROL, 00:00: mouth [place] YOU,) 4 mg 00 SEE-INSTRU Med ical tablets CTIONS. Branch follow package directions methylPREDN 2023-0 Yes [id number] 84mg Take 21 [facility] ISolone 3-16 tablets by ity of (MEDROL, 00:00: mouth [place] YOU,) 4 mg 00 SEE-INSTRU Med ical tablets CTIONS. Branch follow package directions methylPREDN 2023-0 Yes [id number] 84mg Take 21 [facility] ISolone 3-16 tablets by ity of (MEDROL, 00:00: mouth [place] YOU,) 4 mg 00 SEE-INSTRU Med ical tablets CTIONS. Branch follow package directions methylPREDN 2023-0 Yes [id number] 84mg Take 21 [facility] ISolone 3-16 tablets by ity of (MEDROL, 00:00: mouth [place] YOU,) 4 mg 00 SEE-INSTRU Med ical tablets CTIONS. Branch follow package directions methylPREDN 2023-0 Yes [id number] 84mg Take 21 [facility] ISolone 3-16 tablets by ity of (MEDROL, 00:00: mouth [place] YOU,) 4 mg 00 SEE-INSTRU Med ical tablets CTIONS. Branch follow package directions methylPREDN 2023-0 Yes [id number] 84mg Take 21 [facility] ISolone 3-16 tablets by ity of (MEDROL, 00:00: mouth [place] YOU,) 4 mg 00 SEE-INSTRU Med ical tablets CTIONS. Branch follow package directions methylPREDN 2023-0 Yes [id number] 84mg Take 21 [facility] ISolone 3-16 tablets by ity of (MEDROL, 00:00: mouth [place] YOU,) 4 mg 00 SEE-INSTRU Med ical tablets CTIONS. Branch follow package directions methylPREDN 2023-0 Yes [id number] 84mg Take 21 [facility] ISolone 3-16 tablets by ity of (MEDROL, 00:00: mouth [place] YOU,) 4 mg 00 SEE-INSTRU Med ical tablets CTIONS. Branch follow package directions methylPREDN 2023-0 Yes [id number] 84mg Take 21 [facility] ISolone 3-16 tablets by ity of (MEDROL, 00:00: mouth [place] YOU,) 4 mg 00 SEE-INSTRU Med ical tablets CTIONS. Branch follow package directions methylPREDN 2023-0 Yes [id number] 84mg Take 21 [facility] ISolone 3-16 tablets by ity of (MEDROL, 00:00: mouth [place] YOU,) 4 mg 00 SEE-INSTRU Med ical tablets CTIONS. Branch follow package directions methylPREDN 3-0 Yes [id number] 84mg Take 21 [facility] ISolone 3-16 tablets by ity of (MEDROL, 00:00: mouth [place] YOU,) 4 mg 00 SEE-INSTRU Med ical tablets CTIONS. Branch follow package directions methylPREDN 3-0 Yes [id number] 84mg Take 21 [facility] ISolone 3-16 tablets by ity of (MEDROL, 00:00: mouth [place] YOU,) 4 mg 00 SEE-INSTRU Med ical tablets CTIONS. Branch follow package directions methylPREDN 3-0 Yes [id number] 84mg Take 21 [facility] ISolone 3-16 tablets by ity of (MEDROL, 00:00: mouth [place] YOU,) 4 mg 00 SEE-INSTRU Med ical tablets CTIONS. Branch follow package directions methylPREDN 3-0 Yes [id number] 84mg Take 21 [facility] ISolone 3-16 tablets by ity of (MEDROL, 00:00: mouth [place] YOU,) 4 mg 00 SEE-INSTRU Med ical tablets CTIONS. Branch follow package directions methylPREDN 2023-0 Yes [id number] 84mg Take 21 [facility] ISolone 3-16 tablets by ity of (MEDROL, 00:00: mouth [place] YOU,) 4 mg 00 SEE-INSTRU Med ical tablets CTIONS. Branch follow package directions methylPREDN 2023-0 Yes [id number] 84mg Take 21 [facility] ISolone 3-16 tablets by ity of (MEDROL, 00:00: mouth [place] YOU,) 4 mg 00 SEE-INSTRU Med ical tablets CTIONS. Branch follow package directions methylPREDN 2023-0 Yes [id number] 84mg Take 21 [facility] ISolone 3-16 tablets by ity of (MEDROL, 00:00: mouth [place] YOU,) 4 mg 00 SEE-INSTRU Med ical tablets CTIONS. Branch follow package directions methylPREDN 2023-0 Yes [id number] 84mg Take 21 [facility] ISolone 3-16 tablets by ity of (MEDROL, 00:00: mouth [place] YOU,) 4 mg 00 SEE-INSTRU Med ical tablets CTIONS. Branch follow package directions methylPREDN 2023-0 Yes [id number] 84mg Take 21 [facility] ISolone 3-16 tablets by ity of (MEDROL, 00:00: mouth [place] YOU,) 4 mg 00 SEE-INSTRU Med ical tablets CTIONS. Branch follow package directions methylPREDN 2023-0 Yes [id number] 84mg Take 21 [facility] ISolone 3-16 tablets by ity of (MEDROL, 00:00: mouth [place] YOU,) 4 mg 00 SEE-INSTRU Med ical tablets CTIONS. Branch follow package directions methylPREDN 2023-0 Yes [id number] 84mg Take 21 [facility] ISolone 3-16 tablets by ity of (MEDROL, 00:00: mouth [place] YOU,) 4 mg 00 SEE-INSTRU Med ical tablets CTIONS. Branch follow package directions methylPREDN 3-0 Yes [id number] 84mg Take 21 [facility] ISolone 3-16 tablets by ity of (MEDROL, 00:00: mouth [place] YOU,) 4 mg 00 SEE-INSTRU Med ical tablets CTIONS. Branch follow package directions methylPREDN 2023-0 Yes [id number] 84mg Take 21 [facility] ISolone 3-16 tablets by ity of (MEDROL, 00:00: mouth [place] YOU,) 4 mg 00 SEE-INSTRU Med ical tablets CTIONS. Branch follow package directions methylPREDN 2023-0 Yes [id number] 84mg Take 21 [facility] ISolone 3-16 tablets by ity of (MEDROL, 00:00: mouth [place] YOU,) 4 mg 00 SEE-INSTRU Med ical tablets CTIONS. Branch follow package directions methylPREDN 2023-0 Yes [id number] 84mg Take 21 [facility] ISolone 3-16 tablets by ity of (MEDROL, 00:00: mouth [place] YOU,) 4 mg 00 SEE-INSTRU Med ical tablets CTIONS. Branch follow package directions methylPREDN 2023-0 Yes [id number] 84mg Take 21 [facility] ISolone 3-16 tablets by ity of (MEDROL, 00:00: mouth [place] YOU,) 4 mg 00 SEE-INSTRU Med ical tablets CTIONS. Branch follow package directions methylPREDN 2023-0 Yes [id number] 84mg Take 21 [facility] ISolone 3-16 tablets by ity of (MEDROL, 00:00: mouth [place] YOU,) 4 mg 00 SEE-INSTRU Med ical tablets CTIONS. Branch follow package directions methylPREDN 2023-0 Yes [id number] 84mg Take 21 [facility] ISolone 3-16 tablets by ity of (MEDROL, 00:00: mouth [place] YOU,) 4 mg 00 SEE-INSTRU Med ical tablets CTIONS. Branch follow package directions methylPREDN 2023-0 Yes [id number] 84mg Take 21 [facility] ISolone 3-16 tablets by ity of (MEDROL, 00:00: mouth [place] YOU,) 4 mg 00 SEE-INSTRU Med ical tablets CTIONS. Branch follow package directions methylPREDN 2023-0 Yes [id number] 84mg Take 21 [facility] ISolone 3-16 tablets by ity of (MEDROL, 00:00: mouth [place] YOU,) 4 mg 00 SEE-INSTRU Med ical tablets CTIONS. Branch follow package directions methylPREDN 2023-0 Yes [id number] 84mg Take 21 [facility] ISolone 3-16 tablets by ity of (MEDROL, 00:00: mouth [place] YOU,) 4 mg 00 SEE-INSTRU Med ical tablets CTIONS. Branch follow package directions methylPREDN 2023-0 Yes [id number] 84mg Take 21 [facility] ISolone 3-16 tablets by ity of (MEDROL, 00:00: mouth [place] YOU,) 4 mg 00 SEE-INSTRU Med ical tablets CTIONS. Branch follow package directions methylPREDN 2023-0 Yes [id number] 84mg Take 21 [facility] ISolone 3-16 tablets by ity of (MEDROL, 00:00: mouth [place] YOU,) 4 mg 00 SEE-INSTRU Med ical tablets CTIONS. Branch follow package directions methylPREDN 2023-0 Yes [id number] 84mg Take 21 [facility] ISolone 3-16 tablets by ity of (MEDROL, 00:00: mouth [place] YOU,) 4 mg 00 SEE-INSTRU Med ical tablets CTIONS. Branch follow package directions methylPREDN 2023-0 Yes [id number] 84mg Take 21 [facility] ISolone 3-16 tablets by ity of (MEDROL, 00:00: mouth [place] YOU,) 4 mg 00 SEE-INSTRU Med ical tablets CTIONS. Branch follow package directions methylPREDN 2023-0 Yes [id number] 84mg Take 21 [facility] ISolone 3-16 tablets by ity of (MEDROL, 00:00: mouth [place] YOU,) 4 mg 00 SEE-INSTRU Med ical tablets CTIONS. Branch follow package directions methylPREDN 2023-0 Yes [id number] 84mg Take 21 [facility] ISolone 3-16 tablets by ity of (MEDROL, 00:00: mouth [place] YOU,) 4 mg 00 SEE-INSTRU Med ical tablets CTIONS. Branch follow package directions methylPREDN 2023-0 Yes [id number] 84mg Take 21 [facility] ISolone 3-16 tablets by ity of (MEDROL, 00:00: mouth [place] YOU,) 4 mg 00 SEE-INSTRU Med ical tablets CTIONS. Branch follow package directions methylPREDN 2023-0 Yes [id number] 84mg Take 21 [facility] ISolone 3-16 tablets by ity of (MEDROL, 00:00: mouth [place] YOU,) 4 mg 00 SEE-INSTRU Med ical tablets CTIONS. Branch follow package directions methylPREDN 2023-0 Yes [id number] 84mg Take 21 [facility] ISolone 3-16 tablets by ity of (MEDROL, 00:00: mouth [place] YOU,) 4 mg 00 SEE-INSTRU Med ical tablets CTIONS. Branch follow package directions methylPREDN 2023-0 Yes [id number] 84mg Take 21 [facility] ISolone 3-16 tablets by ity of (MEDROL, 00:00: mouth [place] YOU,) 4 mg 00 SEE-INSTRU Med ical tablets CTIONS. Branch follow package directions methylPREDN 2023-0 Yes [id number] 84mg Take 21 [facility] ISolone 3-16 tablets by ity of (MEDROL, 00:00: mouth [place] YOU,) 4 mg 00 SEE-INSTRU Med ical tablets CTIONS. Branch follow package directions methylPREDN 2023-0 Yes [id number] 84mg Take 21 [facility] ISolone 3-16 tablets by ity of (MEDROL, 00:00: mouth [place] YOU,) 4 mg 00 SEE-INSTRU Med ical tablets CTIONS. Branch follow package directions methylPREDN 2023-0 Yes [id number] 84mg Take 21 [facility] ISolone 3-16 tablets by ity of (MEDROL, 00:00: mouth [place] YOU,) 4 mg 00 SEE-INSTRU Med ical tablets CTIONS. Branch follow package directions methylPREDN 2023-0 Yes [id number] 84mg Take 21 [facility] ISolone 3-16 tablets by ity of (MEDROL, 00:00: mouth [place] YOU,) 4 mg 00 SEE-INSTRU Med ical tablets CTIONS. Branch follow package directions methylPREDN 2023-0 Yes [id number] 84mg Take 21 [facility] ISolone 3-16 tablets by ity of (MEDROL, 00:00: mouth [place] YOU,) 4 mg 00 SEE-INSTRU Med ical tablets CTIONS. Branch follow package directions methylPREDN 2023-0 Yes [id number] 84mg Take 21 [facility] ISolone 3-16 tablets by ity of (MEDROL, 00:00: mouth [place] YOU,) 4 mg 00 SEE-INSTRU Med ical tablets CTIONS. Branch follow package directions methylPREDN 2023-0 Yes [id number] 84mg Take 21 [facility] ISolone 3-16 tablets by ity of (MEDROL, 00:00: mouth [place] YOU,) 4 mg 00 SEE-INSTRU Med ical tablets CTIONS. Branch follow package directions methylPREDN 2023-0 Yes [id number] 84mg Take 21 [facility] ISolone 3-16 tablets by ity of (MEDROL, 00:00: mouth [place] YOU,) 4 mg 00 SEE-INSTRU Med ical tablets CTIONS. Branch follow package directions methylPREDN 2023-0 Yes [id number] 84mg Take 21 [facility] ISolone 3-16 tablets by ity of (MEDROL, 00:00: mouth [place] YOU,) 4 mg 00 SEE-INSTRU Med ical tablets CTIONS. Branch follow package directions methylPREDN 2023-0 Yes [id number] 84mg Take 21 [facility] ISolone 3-16 tablets by ity of (MEDROL, 00:00: mouth [place] YOU,) 4 mg 00 SEE-INSTRU Med ical tablets CTIONS. Branch follow package directions methylPREDN 2023-0 Yes [id number] 84mg Take 21 [facility] ISolone 3-16 tablets by ity of (MEDROL, 00:00: mouth [place] YOU,) 4 mg 00 SEE-INSTRU Med ical tablets CTIONS. Branch follow package directions methylPREDN 2023-0 Yes [id number] 84mg Take 21 [facility] ISolone 3-16 tablets by ity of (MEDROL, 00:00: mouth [place] YOU,) 4 mg 00 SEE-INSTRU Med ical tablets CTIONS. Branch follow package directions methylPREDN 2023-0 Yes [id number] 84mg Take 21 [facility] ISolone 3-16 tablets by ity of (MEDROL, 00:00: mouth [place] YOU,) 4 mg 00 SEE-INSTRU Med ical tablets CTIONS. Branch follow package directions methylPREDN 2023-0 Yes [id number] 84mg Take 21 [facility] ISolone 3-16 tablets by ity of (MEDROL, 00:00: mouth [place] YOU,) 4 mg 00 SEE-INSTRU Med ical tablets CTIONS. Branch follow package directions methylPREDN 2023-0 Yes [id number] 84mg Take 21 [facility] ISolone 3-16 tablets by ity of (MEDROL, 00:00: mouth [place] YOU,) 4 mg 00 SEE-INSTRU Med ical tablets CTIONS. Branch follow package directions methylPREDN 2023-0 Yes [id number] 84mg Take 21 [facility] ISolone 3-16 tablets by ity of (MEDROL, 00:00: mouth [place] YOU,) 4 mg 00 SEE-INSTRU Med ical tablets CTIONS. Branch follow package directions methylPREDN 2023-0 Yes [id number] 84mg Take 21 [facility] ISolone 3-16 tablets by ity of (MEDROL, 00:00: mouth [place] YOU,) 4 mg 00 SEE-INSTRU Med ical tablets CTIONS. Branch follow package directions methylPREDN 2023-0 Yes [id number] 84mg Take 21 [facility] ISolone 3-16 tablets by ity of (MEDROL, 00:00: mouth [place] YOU,) 4 mg 00 SEE-INSTRU Med ical tablets CTIONS. Branch follow package directions methylPREDN 2023-0 Yes [id number] 84mg Take 21 [facility] ISolone 3-16 tablets by ity of (MEDROL, 00:00: mouth [place] YOU,) 4 mg 00 SEE-INSTRU Med ical tablets CTIONS. Branch follow package directions methylPREDN 3-0 Yes [id number] 84mg Take 21 [facility] ISolone 3-16 tablets by ity of (MEDROL, 00:00: mouth [place] YOU,) 4 mg 00 SEE-INSTRU Med ical tablets CTIONS. Branch follow package directions methylPREDN 2022-0 Yes [id number] 84mg Take 21 [facility] ISolone 3-16 tablets by ity of (MEDROL, 00:00: mouth [place] YOU,) 4 mg 00 SEE-INSTRU Med ical tablets CTIONS. Branch follow package directions methylPREDN 2022-0 Yes [id number] 84mg Take 21 [facility] ISolone 3-16 tablets by ity of (MEDROL, 00:00: mouth [place] YOU,) 4 mg 00 SEE-INSTRU Med ical tablets CTIONS. Branch follow package directions methylPREDN 2022-0 Yes [id number] 84mg Take 21 [facility] ISolone 3-16 tablets by ity of (MEDROL, 00:00: mouth [place] YOU,) 4 mg 00 SEE-INSTRU Med ical tablets CTIONS. Branch follow package directions insulin Yes ADMINISTER [facility] degludec 3-13 80 UNITS ity of (TRESIBA 00:00: [place] THE [place]LE[place] 00 SKIN EVERY Medi brent U-200) 200 MORNING Branch unit/mL (3 mL) InPn insulin Yes ADMINISTER [facility] ers degludec 3-13 80 UNITS ity of (TRESIBA 00:00: [place] THE [place] FLEXT[place] 00 SKIN EVERY Medi brent U-200) 200 MORNING Branch unit/mL (3 mL) InPn insulin Yes ADMINISTER [facility] ers degludec 3-13 80 UNITS ity of (TRESIBA 00:00: UNDER THE [place] [facility]LEXT[place] 00 SKIN EVERY Medi brent U-200) 200 MORNING Branch unit/mL (3 mL) InPn insulin Yes ADMINISTER [facility] ers degludec 3-13 80 UNITS ity of (TRESIBA 00:00: [place]ER THE [place]LEXT[place] 00 SKIN EVERY Medi brent U-200) 200 MORNING Branch unit/mL (3 mL) InPn insulin Yes ADMINISTER [facility] degludec 3-13 80 UNITS ity of (TRESIBA 00:00: UNDER THE [place]LEXT[place] 00 SKIN EVERY Medi brent U-200) 200 MORNING Branch unit/mL (3 mL) InPn insulin Yes ADMINISTER [facility] degludec 12-03 80 UNITS ity of (TRESIBA 00:00: UNDER THE [place] FLEXTOU[place] 00 SKIN EVERY Medi brent U-200) 200 MORNING Branch unit/mL (3 mL) InPn insulin Yes ADMINISTER [facility] degludec 12-03 80 UNITS ity of (TRESIBA 00:00: [place] THE [place]LE[place] 00 SKIN EVERY Medi brent U-200) 200 MORNING Branch unit/mL (3 mL) InPn insulin 2022- No ADMINISTER [facility] vers degludec 12-03 80 UNITS ity of (TRESIBA 00:00: 00:00 UNDER THE [place] FLEXTOUCH 00 :00 SKIN EVERY Medi brent U-200) 200 MORNING Branch unit/mL (3 mL) InPn insulin 2022- No ADMINISTER [facility] vers degludec 12-03 80 UNITS ity of (TRESIBA 00:00: 00:00 UNDER THE [place] as FLEXTOUCH 00 :00 SKIN EVERY Medi brent U-200) 200 MORNING Branch unit/mL (3 mL) InPn insulin 2022- No ADMINISTER [facility] vers degludec 12-03 80 UNITS ity of (TRESIBA 00:00: 00:00 UNDER THE [place] FLEXTOUCH 00 :00 SKIN EVERY Medi brent U-200) 200 MORNING Branch unit/mL (3 mL) InPn insulin 2022- No ADMINISTER [facility] vers degludec 12-03 80 UNITS ity of (TRESIBA 00:00: 00:00 UNDER THE [place] as FLEXTOUCH 00 :00 SKIN EVERY Medi brent U-200) 200 MORNING Branch unit/mL (3 mL) InPn insulin 2022- No ADMINISTER [facility] vers degludec 12-03 80 UNITS ity of (TRESIBA 00:00: 00:00 UNDER THE [place] as FLEXTOUCH 00 :00 SKIN EVERY Medi brent U-200) 200 MORNING Branch unit/mL (3 mL) InPn insulin 2022- No ADMINISTER [facility] vers degludec 3-13 04-04 80 UNITS ity of (TRESIBA 00:00: 00:00 UNDER THE [place] as FLEXTOUCH 00 :00 SKIN EVERY Medi brent U-200) 200 MORNING Branch unit/mL (3 mL) InPn blood sugar 2022-0 Yes [id number] USE THREE [facility] diagnostic 3-06 TIMES ity of (TRUE 00:00: DAILY [place] [facility]RI[facility] 00 DIRECTED Medical GLUCOSE Branch TEST STRIP) strip blood sugar 2022-0 Yes [id number] USE THREE [facility] diagnostic 3-06 TIMES ity of (TRUE 00:00: DAILY [place] [facility]RI[facility] 00 DIRECTED Medical GLUCOSE Branch TEST STRIP) strip blood sugar 2022-0 Yes [id number] USE THREE [facility] diagnostic 3-06 TIMES ity of (TRUE 00:00: DAILY [place] [facility] 00 DIRECTED Medical GLUCOSE Branch TEST STRIP) strip blood sugar 2022-0 Yes [id number] USE THREE [facility] diagnostic 3-06 TIMES ity of (TRUE 00:00: DAILY [place] [facility] 00 DIRECTED Medical GLUCOSE Branch TEST STRIP) strip blood sugar 2022-0 Yes [id number] USE THREE [facility] diagnostic 3-06 TIMES ity of (TRUE 00:00: DAILY [place] [facility] 00 DIRECTED Medical GLUCOSE Branch TEST STRIP) strip blood sugar 2022-0 Yes [id number] USE THREE [facility] diagnostic 3-06 TIMES ity of (TRUE 00:00: DAILY [place] [facility] 00 DIRECTED Medical GLUCOSE Branch TEST STRIP) strip blood sugar 2022-0 Yes [id number] USE THREE [facility] diagnostic 3-06 TIMES ity of (TRUE 00:00: DAILY [place] [facility] 00 DIRECTED Medical GLUCOSE Branch TEST STRIP) strip blood sugar 2022-0 Yes [id number] USE THREE [facility] diagnostic 3-06 TIMES ity of (TRUE 00:00: DAILY [place] [facility] 00 DIRECTED Medical GLUCOSE Branch TEST STRIP) strip blood sugar 2022-0 Yes [id number] USE THREE [facility] diagnostic 3-06 TIMES ity of (TRUE 00:00: DAILY [place] [facility] 00 DIRECTED Medical GLUCOSE Branch TEST STRIP) strip blood sugar 2022-0 Yes [id number] USE THREE [facility] diagnostic 3-06 TIMES ity of (TRUE 00:00: DAILY [place] [facility] 00 DIRECTED Medical GLUCOSE Branch TEST STRIP) strip blood sugar 3-0 Yes [id number] USE THREE [facility] diagnostic 3-06 TIMES ity of (TRUE 00:00: DAILY [place] [facility] 00 DIRECTED Medical GLUCOSE Branch TEST STRIP) strip blood sugar 3-0 Yes [id number] USE THREE [facility] diagnostic 3-06 TIMES ity of (TRUE 00:00: DAILY [place] [facility] 00 DIRECTED Medical GLUCOSE Branch TEST STRIP) strip blood sugar 3-0 Yes [id number] USE THREE [facility] diagnostic 3-06 TIMES ity of (TRUE 00:00: DAILY [place] [facility] 00 DIRECTED Medical GLUCOSE Branch TEST STRIP) strip blood sugar 3-0 Yes [id number] USE THREE [facility] diagnostic 3-06 TIMES ity of (TRUE 00:00: DAILY [place] [facility] 00 DIRECTED Medical GLUCOSE Branch TEST STRIP) strip blood sugar 3-0 Yes [id number] USE THREE [facility] diagnostic 3-06 TIMES ity of (TRUE 00:00: DAILY [place] [facility] 00 DIRECTED Medical GLUCOSE Branch TEST STRIP) strip blood sugar 3-0 Yes [id number] USE THREE [facility] diagnostic 3-06 TIMES ity of (TRUE 00:00: DAILY [place] [facility] 00 DIRECTED Medical GLUCOSE Branch TEST STRIP) strip blood sugar 3-0 Yes [id number] USE THREE [facility] diagnostic 3-06 TIMES ity of (TRUE 00:00: DAILY [place] [facility] 00 DIRECTED Medical GLUCOSE Branch TEST STRIP) strip blood sugar 3-0 Yes [id number] USE THREE [facility] diagnostic 3-06 TIMES ity of (TRUE 00:00: DAILY [place] [facility] 00 DIRECTED Medical GLUCOSE Branch TEST STRIP) strip blood sugar 3-0 Yes [id number] USE THREE [facility] diagnostic 3-06 TIMES ity of (TRUE 00:00: DAILY [place] [facility] 00 DIRECTED Medical GLUCOSE Branch TEST STRIP) strip blood sugar 3-0 Yes [id number] USE THREE [facility] diagnostic 3-06 TIMES ity of (TRUE 00:00: DAILY [place] [facility] 00 DIRECTED Medical GLUCOSE Branch TEST STRIP) strip blood sugar 3-0 Yes [id number] USE THREE [facility] diagnostic 3-06 TIMES ity of (TRUE 00:00: DAILY [place] [facility] 00 DIRECTED Medical GLUCOSE Branch TEST STRIP) strip blood sugar 2023-0 Yes [id number] USE THREE [facility] diagnostic 3-06 TIMES ity of (TRUE 00:00: DAILY [place] [facility] 00 DIRECTED Medical GLUCOSE Branch TEST STRIP) strip blood sugar 3-0 Yes [id number] USE THREE [facility] diagnostic 3-06 TIMES ity of (TRUE 00:00: DAILY [place] [facility] 00 DIRECTED Medical GLUCOSE Branch TEST STRIP) strip blood sugar 3-0 Yes [id number] USE THREE [facility] diagnostic 3-06 TIMES ity of (TRUE 00:00: DAILY [place] [facility] 00 DIRECTED Medical GLUCOSE Branch TEST STRIP) strip blood sugar 3-0 Yes [id number] USE THREE [facility] diagnostic 3-06 TIMES ity of (TRUE 00:00: DAILY [place] [facility] 00 DIRECTED Medical GLUCOSE Branch TEST STRIP) strip blood sugar 3-0 Yes [id number] USE THREE [facility] diagnostic 3-06 TIMES ity of (TRUE 00:00: DAILY [place] [facility] 00 DIRECTED Medical GLUCOSE Branch TEST STRIP) strip blood sugar 3-0 Yes [id number] USE THREE [facility] diagnostic 3-06 TIMES ity of (TRUE 00:00: DAILY [place] [facility] 00 DIRECTED Medical GLUCOSE Branch TEST STRIP) strip blood sugar 3-0 Yes [id number] USE THREE [facility] diagnostic 3-06 TIMES ity of (TRUE 00:00: DAILY [place] [facility] 00 DIRECTED Medical GLUCOSE Branch TEST STRIP) strip blood sugar 3-0 Yes [id number] USE THREE [facility] diagnostic 3-06 TIMES ity of (TRUE 00:00: DAILY [place] [facility] 00 DIRECTED Medical GLUCOSE Branch TEST STRIP) strip blood sugar 3-0 Yes [id number] USE THREE [facility] diagnostic 3-06 TIMES ity of (TRUE 00:00: DAILY [place] [facility] 00 DIRECTED Medical GLUCOSE Branch TEST STRIP) strip blood sugar 3-0 Yes [id number] USE THREE [facility] diagnostic 3-06 TIMES ity of (TRUE 00:00: DAILY [place] [facility] 00 DIRECTED Medical GLUCOSE Branch TEST STRIP) strip blood sugar 3-0 Yes [id number] USE THREE [facility] diagnostic 3-06 TIMES ity of (TRUE 00:00: DAILY [place] [facility] 00 DIRECTED Medical GLUCOSE Branch TEST STRIP) strip blood sugar 3-0 Yes [id number] USE THREE [facility] diagnostic 3-06 TIMES ity of (TRUE 00:00: DAILY [place] [facility] 00 DIRECTED Medical GLUCOSE Branch TEST STRIP) strip blood sugar 3-0 Yes [id number] USE THREE [facility] diagnostic 3-06 TIMES ity of (TRUE 00:00: DAILY [place] [facility] 00 DIRECTED Medical GLUCOSE Branch TEST STRIP) strip blood sugar 2022-0 Yes [id number] USE THREE [facility] diagnostic 3-06 TIMES ity of (TRUE 00:00: DAILY [place] [facility] 00 DIRECTED Medical GLUCOSE Branch TEST STRIP) strip blood sugar 3-0 Yes [id number] USE THREE [facility] diagnostic 3-06 TIMES ity of (TRUE 00:00: DAILY [place] [facility] 00 DIRECTED Medical GLUCOSE Branch TEST STRIP) strip blood sugar 3-0 Yes [id number] USE THREE [facility] diagnostic 3-06 TIMES ity of (TRUE 00:00: DAILY [place] [facility] 00 DIRECTED Medical GLUCOSE Branch TEST STRIP) strip blood sugar 2022-0 Yes [id number] USE THREE [facility] diagnostic 3-06 TIMES ity of (TRUE 00:00: DAILY [place] [facility] 00 DIRECTED Medical GLUCOSE Branch TEST STRIP) strip blood sugar 2022-0 Yes [id number] USE THREE [facility] diagnostic 3-06 TIMES ity of (TRUE 00:00: DAILY [place] [facility] 00 DIRECTED Medical GLUCOSE Branch TEST STRIP) strip blood sugar 2022-0 Yes [id number] USE THREE Univers diagnostic 3-06 TIMES ity of (TRUE 00:00: DAILY [place] METRIX 00 DIRECTED Medical GLUCOSE Branch TEST STRIP) strip blood sugar 2022-0 Yes [id number] USE THREE [facility] diagnostic 3-06 TIMES ity of (TRUE 00:00: DAILY [place] METRIX 00 DIRECTED Medical GLUCOSE Branch TEST STRIP) strip blood sugar 2022-0 Yes [id number] USE THREE [facility] diagnostic 3-06 TIMES ity of (TRUE 00:00: DAILY [place] METRIX 00 DIRECTED Medical GLUCOSE Branch TEST STRIP) strip blood sugar 3-0 Yes [id number] USE THREE [facility] diagnostic 3-06 TIMES ity of (TRUE 00:00: DAILY [place] METRIX 00 DIRECTED Medical GLUCOSE Branch TEST STRIP) strip blood sugar 3-0 Yes [id number] USE THREE [facility] diagnostic 3-06 TIMES ity of (TRUE 00:00: DAILY [place] METRIX 00 DIRECTED Medical GLUCOSE Branch TEST STRIP) strip blood sugar 2022-0 2023- No [id number] USE THREE [facility] diagnostic 3-06 05-30 TIMES ity of (TRUE 00:00: 00:00 DAILY [place] METRIX 00 :00 DIRECTED Medical GLUCOSE Branch TEST STRIP) strip clonazePAM 2022-0 Yes [id number] 1mg Take 1 U nivers 1 mg tablet 3-01 tablet by ity of 00:00: mouth in [place] the Medical morning. Branch clonazePAM 2023-0 Yes [id number] 1mg Take 1 U nivers 1 mg tablet 3-01 tablet by ity of 00:00: mouth in [place] the Medical morning. Branch clonazePAM 2023-0 Yes [id number] 1mg Take 1 U nivers 1 mg tablet 3-01 tablet by ity of 00:00: mouth in [place] the Medical morning. Branch clonazePAM 2023-0 Yes [id number] 1mg Take 1 U nivers 1 mg tablet 3-01 tablet by ity of 00:00: mouth in [place] the Medical morning. Branch clonazePAM 2023-0 Yes [id number] 1mg Take 1 U nivers 1 mg tablet 3-01 tablet by ity of 00:00: mouth in [place] the morning. Branch clonazePAM 2023-0 Yes [id number] 1mg Take 1 U nivers 1 mg tablet 3-01 tablet by ity of 00:00: mouth in [place] the morning. Branch clonazePAM 2023-0 Yes [id number] 1mg Take 1 U nivers 1 mg tablet 3-01 tablet by ity of 00:00: mouth in [place] the morning. Branch clonazePAM 2023-0 Yes [id number] 1mg Take 1 U nivers 1 mg tablet 3-01 tablet by ity of 00:00: mouth in [place] the morning. Branch clonazePAM 2023-0 Yes [id number] 1mg Take 1 U nivers 1 mg tablet 3-01 tablet by ity of 00:00: mouth in [place] the morning. Branch clonazePAM 2023-0 Yes [id number] 1mg Take 1 U nivers 1 mg tablet 3-01 tablet by ity of 00:00: mouth in [place] the Medical morning. Branch clonazePAM 2023-0 Yes [id number] 1mg Take 1 U nivers 1 mg tablet 3-01 tablet by ity of 00:00: mouth in [place] the Medical morning. Branch clonazePAM 2023-0 Yes [id number] 1mg Take 1 U nivers 1 mg tablet 3-01 tablet by ity of 00:00: mouth in [place] the Medical morning. Branch clonazePAM 2023-0 Yes [id number] 1mg Take 1 U nivers 1 mg tablet 3-01 tablet by ity of 00:00: mouth in [place] 00 the Medical morning. Branch clonazePAM 2023-0 Yes [id number] 1mg Take 1 U nivers 1 mg tablet 3-01 tablet by ity of 00:00: mouth in [place] the Medical morning. Branch clonazePAM 2023-0 Yes [id number] 1mg Take 1 U nivers 1 mg tablet 3-01 tablet by ity of 00:00: mouth in [place] 00 the Medical morning. Branch clonazePAM 2023-0 Yes [id number] 1mg Take 1 U nivers 1 mg tablet 3-01 tablet by ity of 00:00: mouth in [place] 00 the Medical morning. Branch clonazePAM 3-0 Yes [id number] 1mg Take 1 U nivers 1 mg tablet 3-01 tablet by ity of 00:00: mouth in [place] the Medical morning. Branch clonazePAM 3-0 2023- No [id number] 1mg Take 1 [facility] 1 mg tablet 3-09 25- tablet by it y of 00:00: 00:00 mouth in [place] 00 :00 the Medical morning. Branch clonazePAM 3-0 2023- No [id number] 1mg Take 1 [facility] 1 mg tablet 3-09 25- tablet by it y of 00:00: 00:00 mouth in [place] 00 :00 the Medical morning. Branch clonazePAM 3-0 2023- No [id number] 1mg Take 1 [facility] 1 mg tablet 3-09 25- tablet by it y of 00:00: 00:00 mouth in [place] 00 :00 the Medical morning. Branch clonazePAM 3-0 2023- No [id number] 1mg Take 1 [facility] 1 mg tablet 3- tablet by it y of 00:00: 00:00 mouth in [place] 00 :00 the Medical morning. Branch ondansetron 2022-0 Yes 4mg 4 mg, Slow [facility] (ZOFRAN 2-13 IV Push, ity of (PF)) 23:58: PRN, 1 [place] injection 4 15 dose, Medical mg Starting Branch on Sat11/05/22 at 1758, Until Discontinu ed, Routine, Nausea and Vomiting (N/V), PACU morpHINE (4 2022-0 Yes 2mg 2 mg, Slow [facility] mg/mL) 2-13 IV Push, ity of injection 2 23:58: Q5MIN PRN, [place] mg 15 5 doses, Medical Starting Branch on Sat11/05/22 at 1758, Until Discontinu ed, Routine, Pain (scale 4-6), PACU ondansetron 2022- No 4mg 4 mg, Slow [facility] (ZOFRAN 11-05 IV Push, ity of (PF)) 23:58: 03:07 PRN, 1 [place] injection 4 15 :46 dose, Medical mg Starting Branch on Sat11/05/22 at 1758, Until Sat11/05/22 at 210, Routine, Nausea and Vomiting (N/V), PACU morpHINE (4 2022- No 2mg 2 mg, Slow [facility] mg/mL) 11-05 IV Push, ity of injection 2 23:58: 03:07 Q5MIN PRN, [place] mg 15 :46 5 doses, Medical Starting Branch on Sat11/05/22 at 1758, Until Sat11/05/22 at 210, Routine, Pain (scale 4-6), PACU bupivacaine 2022- No PRN, Unive rs -epinephrin 11-05 Starting ity of e-pf 22:48: 00:19 on Sat [place] (SENSORCAIN 00 :54 11/05/22 at Dc dical E 1648, Branch W/EPINEPHRI Until Sat) 0.25 11/05/22 at %-1:200,000 1818, injection Routine, Intra-op lactated 2022- No PRN, [facility] Ringers 11-05 Starting ity of irrigation 22:48: 00[facility]05[facility] at Medic al 1648, Branch Until Sat11/05/22 at 1819, Routine, Intra-op EPINEPHrine 2022- No PRN, Unive rs 1:1,000 (1 11-05 Starting ity of mg/mL) 22:48: 00:19 on Sat [place] (ADRENALIN) 00 :54 11/05/22 at Dc dical injection 1648, Branch Until Sat11/05/22 at 1819, Routine, Intra-op famotidine 2023-0 Yes 40mg Take 40 mg U nivers 40 mg 2-13 by mouth ity of tablet 19:07: in the [place] [address] morning. Medical Branch carvediloL 2023-0 Yes 25mg Take 25 mg U nivers 25 mg 2-13 by mouth ity of tablet 19:07: in the [place] [address] morning Medical and 25 mg Branch in the evening. Take with meals. famotidine 2023-0 Yes 40mg Take 40 mg U nivers 40 mg 2-13 by mouth ity of tablet 19:07: in the [place] [address] morning. Medical Branch carvediloL 2023-0 Yes 25mg Take 25 mg U nivers 25 mg 2-13 by mouth ity of tablet 19:07: in the [place] [address] morning Medical and 25 mg Branch in the evening. Take with meals. famotidine 2023-0 Yes 40mg Take 40 mg U nivers 40 mg 2-13 by mouth ity of tablet 19:07: in the [place] [address] morning. Medical Branch carvediloL 2023-0 Yes 25mg Take 25 mg U nivers 25 mg 2-13 by mouth ity of tablet 19:07: in the [place] [address] morning Medical and 25 mg Branch in the evening. Take with meals. famotidine 2023-0 Yes 40mg Take 40 mg U nivers 40 mg 2-13 by mouth ity of tablet 19:07: in the [place] [address] morning. Medical Branch carvediloL 2023-0 Yes 25mg Take 25 mg U nivers 25 mg 2-13 by mouth ity of tablet 19:07: in the [place] [address] morning Medical and 25 mg Branch in the evening. Take with meals. famotidine 2023-0 Yes 40mg Take 40 mg U nivers 40 mg 2-13 by mouth ity of tablet 19:07: in the [place] [address] morning. Medical Branch carvediloL 2023-0 Yes 25mg Take 25 mg U nivers 25 mg 2-13 by mouth ity of tablet 19:07: in the [place] [address] morning Medical and 25 mg Branch in the evening. Take with meals. famotidine 2023-0 Yes 40mg Take 40 mg U nivers 40 mg 2-13 by mouth ity of tablet 19:07: in the [place] [address] morning. Medical Branch carvediloL 2023-0 Yes 25mg Take 25 mg U nivers 25 mg 2-13 by mouth ity of tablet 19:07: in the [place] [address] morning Medical and 25 mg Branch in the evening. Take with meals. famotidine 2023-0 Yes 40mg Take 40 mg U nivers 40 mg 2-13 by mouth ity of tablet 19:07: in the [place] [address] morning. Medical Branch carvediloL 2023-0 Yes 25mg Take 25 mg U nivers 25 mg 2-13 by mouth ity of tablet 19:07: in the [place] [address] morning Medical and 25 mg Branch in the evening. Take with meals. famotidine 2023-0 Yes 40mg Take 40 mg U nivers 40 mg 2-13 by mouth ity of tablet 19:07: in the [place] [address] morning. Medical Branch carvediloL 2023-0 Yes 25mg Take 25 mg U nivers 25 mg 2-13 by mouth ity of tablet 19:07: in the [place] [address] morning Medical and 25 mg Branch in the evening. Take with meals. famotidine 2023-0 Yes 40mg Take 40 mg U nivers 40 mg 2-13 by mouth ity of tablet 19:07: in the [place] [address] morning. Medical Branch carvediloL 2023-0 Yes 25mg Take 25 mg U nivers 25 mg 2-13 by mouth ity of tablet 19:07: in the [place] [address] morning Medical and 25 mg Branch in the evening. Take with meals. famotidine 2023-0 Yes 40mg Take 40 mg U nivers 40 mg 2-13 by mouth ity of tablet 19:07: in the [place] [address] morning. Medical Branch carvediloL 2023-0 Yes 25mg Take 25 mg U nivers 25 mg 2-13 by mouth ity of tablet 19:07: in the [place] [address] morning Medical and 25 mg Branch in the evening. Take with meals. famotidine 2023-0 Yes 40mg Take 40 mg U nivers 40 mg 2-13 by mouth ity of tablet 19:07: in the [place] [address] morning. Medical Branch carvediloL 2023-0 Yes 25mg Take 25 mg U nivers 25 mg 2-13 by mouth ity of tablet 19:07: in the [place] [address] morning Medical and 25 mg Branch in the evening. Take with meals. famotidine 2023-0 Yes 40mg Take 40 mg U nivers 40 mg 2-13 by mouth ity of tablet 19:07: in the [place] [address] morning. Medical Branch carvediloL 2023-0 Yes 25mg Take 25 mg U nivers 25 mg 2-13 by mouth ity of tablet 19:07: in the [place] [address] morning Medical and 25 mg Branch in the evening. Take with meals. famotidine 2023-0 Yes 40mg Take 40 mg U nivers 40 mg 2-13 by mouth ity of tablet 19:07: in the [place] [address] morning. Medical Branch carvediloL 2023-0 Yes 25mg Take 25 mg U nivers 25 mg 2-13 by mouth ity of tablet 19:07: in the [place] [address] morning Medical and 25 mg Branch in the evening. Take with meals. famotidine 2023-0 Yes 40mg Take 40 mg U nivers 40 mg 2-13 by mouth ity of tablet 19:07: in the [place] [address] morning. Medical Branch famotidine 2023-0 Yes 40mg Take 40 mg U nivers 40 mg 2-13 by mouth ity of tablet 19:07: in the [place] [address] morning. Medical Branch famotidine 2023-0 Yes 40mg Take 40 mg U nivers 40 mg 2-13 by mouth ity of tablet 19:07: in the [place] [address] morning. Medical Branch famotidine 2023-0 Yes 40mg Take 40 mg U nivers 40 mg 2-13 by mouth ity of tablet 19:07: in the [place] [address] morning. Medical Branch famotidine 2023-0 Yes 40mg Take 40 mg U nivers 40 mg 2-13 by mouth ity of tablet 19:07: in the [place] [address] morning. Medical Branch famotidine 2023-0 Yes 40mg Take 40 mg U nivers 40 mg 2-13 by mouth ity of tablet 19:07: in the [place] [address] morning. Medical Branch famotidine 2023-0 Yes 40mg Take 40 mg U nivers 40 mg 2-13 by mouth ity of tablet 19:07: in the [place] [address] morning. Medical Branch famotidine 2023-0 Yes 40mg Take 40 mg U nivers 40 mg 2-13 by mouth ity of tablet 19:07: in the [place] [address] morning. Medical Branch famotidine 2023-0 Yes 40mg Take 40 mg U nivers 40 mg 2-13 by mouth ity of tablet 19:07: in the [place] [address] morning. Medical Branch famotidine 2023-0 Yes 40mg Take 40 mg U nivers 40 mg 2-13 by mouth ity of tablet 19:07: in the [place] [address] morning. Medical Branch famotidine 2023-0 Yes 40mg Take 40 mg U nivers 40 mg 2-13 by mouth ity of tablet 19:07: in the [place] [address] morning. Medical Branch famotidine 2023-0 Yes 40mg Take 40 mg U nivers 40 mg 2-13 by mouth ity of tablet 19:07: in the [place] [address] morning. Medical Branch famotidine 2023-0 Yes 40mg Take 40 mg U nivers 40 mg 2-13 by mouth ity of tablet 19:07: in the [place] [address] morning. Medical Branch famotidine 2023-0 Yes 40mg Take 40 mg U nivers 40 mg 2-13 by mouth ity of tablet 19:07: in the [place] [address] morning. Medical Branch famotidine 2023-0 Yes 40mg Take 40 mg U nivers 40 mg 2-13 by mouth ity of tablet 19:07: in the [place] [address] morning. Medical Branch famotidine 2023-0 Yes 40mg Take 40 mg U nivers 40 mg 2-13 by mouth ity of tablet 19:07: in the [place] [address] morning. Medical Branch famotidine 2023-0 Yes 40mg Take 40 mg U nivers 40 mg 2-13 by mouth ity of tablet 19:07: in the [place] [address] morning. Medical Branch famotidine 2023-0 Yes 40mg Take 40 mg U nivers 40 mg 2-13 by mouth ity of tablet 19:07: in the [place] [address] morning. Medical Branch famotidine 2023-0 Yes 40mg Take 40 mg U nivers 40 mg 2-13 by mouth ity of tablet 19:07: in the [place] [address] morning. Medical Branch famotidine 2023-0 Yes 40mg Take 40 mg U nivers 40 mg 2-13 by mouth ity of tablet 19:07: in the [place] [address] morning. Medical Branch famotidine 2023-0 Yes 40mg Take 40 mg U nivers 40 mg 2-13 by mouth ity of tablet 19:07: in the [place] [address] morning. Medical Branch famotidine 2023-0 Yes 40mg Take 40 mg U nivers 40 mg 2-13 by mouth ity of tablet 19:07: in the [place] [address] morning. Medical Branch famotidine 2023-0 Yes 40mg Take 40 mg U nivers 40 mg 2-13 by mouth ity of tablet 19:07: in the [place] [address] morning. Medical Branch famotidine 2023-0 Yes 40mg Take 40 mg U nivers 40 mg 2-13 by mouth ity of tablet 19:07: in the [place] [address] morning. Medical Branch famotidine 2023-0 Yes 40mg Take 40 mg U nivers 40 mg 2-13 by mouth ity of tablet 19:07: in the [place] [address] morning. Medical Branch famotidine 2023-0 Yes 40mg Take 40 mg U nivers 40 mg 2-13 by mouth ity of tablet 19:07: in the [place] [address] morning. Medical Branch famotidine 2023-0 Yes 40mg Take 40 mg U nivers 40 mg 2-13 by mouth ity of tablet 19:07: in the [place] [address] morning. Medical Branch famotidine 3-0 Yes 40mg Take 40 mg U nivers 40 mg 2-13 by mouth ity of tablet 19:07: in the [place] [address] morning. Medical Branch famotidine 2023-0 Yes 40mg Take 40 mg U nivers 40 mg 2-13 by mouth ity of tablet 19:07: in the [place] [address] morning. Medical Branch famotidine 2023-0 Yes 40mg Take 40 mg U nivers 40 mg 2-13 by mouth ity of tablet 19:07: in the [place] [address] morning. Medical Branch famotidine 2023-0 Yes 40mg Take 40 mg U nivers 40 mg 2-13 by mouth ity of tablet 19:07: in the [place] [address] morning. Medical Branch famotidine 2023-0 Yes 40mg Take 40 mg U nivers 40 mg 2-13 by mouth ity of tablet 19:07: in the [place] [address] morning. Medical Branch famotidine 2023-0 Yes 40mg Take 40 mg U nivers 40 mg 2-13 by mouth ity of tablet 19:07: in the [place] [address] morning. Medical Branch meclizine 2022-2022- No 1{tbl} Take 1 Uni vers 25 mg 2-13 02-07 tablet by ity of tablet 19:07: 00:00 mouth as [place] 44 :00 needed. Medical Branch venlafaxine 2022-2022- No 150mg Take 150 [facility] XR 150 mg 11-05- mg by ity of 24 hr 19:07: 00:00 mouth in [place] capsule 44 :00 the Medical morning. Branch meclizine 2022-2022- No 1{tbl} Take 1 Uni vers 25 mg 11-05- tablet by ity of tablet 19:07: 00:00 mouth as [place] 44 :00 needed. Medical Branch venlafaxine 2022-2022- No 150mg Take 150 [facility] XR 150 mg 11-05- mg by ity of 24 hr 19:07: 00:00 mouth in [place] capsule 44 :00 the Medical morning. Branch lactated 2022-2022- No 1000mL at 42 Unive rs ringers IV 11-05- mL/hr, ity of infusion 18:45: 18:51 1,000 mL, [place] as 1,000 mL 00 :00 IV Medical Infusion, Branch ONCE, 1 dose, On Sat11/05/22 at 1245, Routine, [facility] Pre-op lactated 2022-0 2022- No 1000mL at 42 Unive rs ringers IV 11-05- mL/hr, ity of infusion 18:45: 18:51 1,000 mL, [place] as 1,000 mL 00 :00 IV Medical Infusion, Branch ONCE, 1 dose, On Sat11/05/22 at 1245, Routine, DSU Pre-op aspirin 325 2022-2022- No [id number] 325mg Take 1 [facility] mg tablet 11-05 9105 tablet by ity of 00:00: 04:59 mouth in [place] 00 :00 the Medical morning Branch and 1 tablet in the evening. Take with meals. Do all this for 28 days. aspirin 325 2022-0 2022- No [id number] 325mg Take 1 [facility] mg tablet 11-05 9105 tablet by ity of 00:00: 04:59 mouth in [place] 00 :00 the Medical morning Branch and 1 tablet in the evening. Take with meals. Do all this for 28 days. aspirin 325 2022-0 2022- No [id number] 325mg Take 1 [facility] mg tablet 11-05 9105 tablet by ity of 00:00: 04:59 mouth in [place] 00 :00 the Medical morning Branch and 1 tablet in the evening. Take with meals. Do all this for 28 days. aspirin 325 2023-0 2023- No [id number] 325mg Take 1 [facility] mg tablet 11-05 9105 tablet by ity of 00:00: 04:59 mouth in [place] 00 :00 the Medical morning Branch and 1 tablet in the evening. Take with meals. Do all this for 28 days. aspirin 325 2023-0 2023- No [id number] 325mg Take 1 [facility] mg tablet 11-05 9105 tablet by ity of 00:00: 04:59 mouth in [place] 00 :00 the Medical morning Branch and 1 tablet in the evening. Take with meals. Do all this for 28 days. aspirin 325 2023-0 2023- No [id number] 325mg Take 1 [facility] mg tablet 212-04 9105 tablet by ity of 00:00: 04:59 mouth in [place] 00 :00 the Medical morning Branch and 1 tablet in the evening. Take with meals. Do all this for 28 days. aspirin 325 2023-0 2023- No [id number] 325mg Take 1 [facility] mg tablet 11-05 9105 tablet by ity of 00:00: 04:59 mouth in [place] 00 :00 the Medical morning Branch and 1 tablet in the evening. Take with meals. Do all this for 28 days. aspirin 325 2023-0 2023- No [id number] 325mg Take 1 [facility] mg tablet 11-05 9105 tablet by ity of 00:00: 04:59 mouth in [place] 00 :00 the Medical morning Branch and 1 tablet in the evening. Take with meals. Do all this for 28 days. aspirin 325 2023-0 2023- No [id number] 325mg Take 1 [facility] mg tablet 11-05 9105 tablet by ity of 00:00: 04:59 mouth in [place] 00 :00 the Medical morning Branch and 1 tablet in the evening. Take with meals. Do all this for 28 days. aspirin 325 2023-0 2023- No [id number] 325mg Take 1 [facility] mg tablet 212-04 9105 tablet by ity of 00:00: 04:59 mouth in [place] 00 :00 the Medical morning Branch and 1 tablet in the evening. Take with meals. Do all this for 28 days. aspirin 325 2023-0 2023- No [id number] 325mg Take 1 [facility] mg tablet 11-05 9105 tablet by ity of 00:00: 04:59 mouth in [place] 00 :00 the Medical morning Branch and 1 tablet in the evening. Take with meals. Do all this for 28 days. aspirin 325 2022-2022- No [id number] 325mg Take 1 [facility] mg tablet 11-05 9105 tablet by ity of 00:00: 04:59 mouth in [place] 00 :00 the Medical morning Branch and 1 tablet in the evening. Take with meals. Do all this for 28 days. HYDROcodone 2022-2022- No 4647 1{tbl} Take 1 U nivers -acetaminop 2-13 02-21 tablet by it y of hen 5-325 00:00: 05:59 mouth [place] mg tablet 00 :00 every 6 Medical (six) Branch hours as needed for Pain (scale 4-6) or Pain (scale 7-10) for up to 7 days. Indication s: acute pain HYDROcodone 2022-2022- No 4647 1{tbl} Take 1 U nivers -acetaminop 2-13 02-21 tablet by it y of hen 5-325 00:00: 05:59 mouth [place] mg tablet 00 :00 every 6 Medical (six) Branch hours as needed for Pain (scale 4-6) or Pain (scale 7-10) for up to 7 days. Indication s: acute pain HYDROcodone 2022-2022- No 4647 1{tbl} Take 1 U nivers -acetaminop 2-13 02-21 tablet by it y of hen 5-325 00:00: 05:59 mouth [place] mg tablet 00 :00 every 6 Medical (six) Branch hours as needed for Pain (scale 4-6) or Pain (scale 7-10) for up to 7 days. Indication s: acute pain HYDROcodone 2022-2022- No 4647 1{tbl} Take 1 U nivers -acetaminop 2-13 02-21 tablet by it y of hen 5-325 00:00: 05:59 mouth [place] mg tablet 00 :00 every 6 Medical (six) Branch hours as needed for Pain (scale 4-6) or Pain (scale 7-10) for up to 7 days. Indication s: acute pain HYDROcodone 2022- No 4647 1{tbl} Take 1 U nivers -acetaminop 2-05 11-21 tablet by it y of hen 5-325 00:00: 05:59 mouth [place] mg tablet 00 :00 every 6 Medical (six) Branch hours as needed for Pain (scale 4-6) or Pain (scale 7-10) for up to 7 days. Indication s: acute pain HYDROcodone 2022- No 4647 1{tbl} Take 1 U nivers -acetaminop 2-05 11-21 tablet by it y of hen 5-325 00:00: 05:59 mouth [place] mg tablet 00 :00 every 6 Medical (six) Branch hours as needed for Pain (scale 4-6) or Pain (scale 7-10) for up to 7 days. Indication s: acute pain [facility] 100 Yes TAKE 1 [facility] ers mg tablet 2-10 TABLET BY ity o f 00:00: MOUTH [place] 00 EVERY Medical MORNING Branch HARDIKUVIA 100 0 Yes TAKE 1 Univ ers mg tablet 2-10 TABLET BY ity o f 00:00: MOUTH [place] 00 EVERY Medical MORNING Branch HARDIKUVIA 100 2022-0 Yes TAKE 1 Univ ers mg tablet 2-10 TABLET BY ity o f 00:00: MOUTH [place] 00 EVERY Medical MORNING Branch JANUVIA 100 2022-0 Yes TAKE 1 Univ ers mg tablet 2-10 TABLET BY ity o f 00:00: MOUTH [place] 00 EVERY Medical MORNING Branch JANUVIA 100 2022-0 Yes TAKE 1 Univ ers mg tablet 2-10 TABLET BY ity o f 00:00: MOUTH [place] 00 EVERY Medical MORNING Branch JANUVIA 100 0 Yes TAKE 1 Univ ers mg tablet 2-10 TABLET BY ity o f 00:00: MOUTH [place] 00 EVERY Medical MORNING Branch HARDIKUVIA 100 2022-0 Yes TAKE 1 Univ ers mg tablet 2-10 TABLET BY ity o f 00:00: MOUTH [place] 00 EVERY Medical MORNING Branch HARDIKUVIA 100 2022-0 Yes TAKE 1 Univ ers mg tablet 2-10 TABLET BY ity o f 00:00: MOUTH [place] 00 EVERY Medical MORNING Branch HARDIKUVIA 100 2022-0 Yes TAKE 1 Univ ers mg tablet 2-10 TABLET BY ity o f 00:00: MOUTH [place] 00 EVERY Medical MORNING Branch JANUARY 100 2022-0 Yes TAKE 1 Univ ers mg tablet 2-10 TABLET BY ity o f 00:00: MOUTH [place] 00 EVERY Medical MORNING Branch JANUARY 100 2022-0 Yes TAKE 1 Univ ers mg tablet 2-10 TABLET BY ity o f 00:00: MOUTH [place] 00 EVERY Medical MORNING Branch JANUARY 100 2022-0 Yes TAKE 1 Univ ers mg tablet 2-10 TABLET BY ity o f 00:00: MOUTH [place] 00 EVERY Medical MORNING Branch JANUARY 100 2022-0 Yes TAKE 1 Univ ers mg tablet 2-10 TABLET BY ity o f 00:00: MOUTH [place] 00 EVERY Medical MORNING Branch JANUARY 100 2022-0 Yes TAKE 1 Univ ers mg tablet 2-10 TABLET BY ity o f 00:00: MOUTH [place] 00 EVERY Medical MORNING Branch JANUARY 100 2022-0 Yes TAKE 1 Univ ers mg tablet 2-10 TABLET BY ity o f 00:00: MOUTH [place] 00 EVERY Medical MORNING Branch JANUARY 100 2022-0 Yes TAKE 1 Univ ers mg tablet 2-10 TABLET BY ity o f 00:00: MOUTH [place] 00 EVERY Medical MORNING Branch JANUARY 100 2022-0 Yes TAKE 1 Univ ers mg tablet 2-10 TABLET BY ity o f 00:00: MOUTH [place] 00 EVERY Medical MORNING Branch JANUARY 100 2022-0 Yes TAKE 1 Univ ers mg tablet 2-10 TABLET BY ity o f 00:00: MOUTH [place] 00 EVERY Medical MORNING Branch JANUARY 100 2022-0 2023- No TAKE 1 Uni vers mg tablet 2-10 04-04 TABLET BY ity of 00:00: 00:00 MOUTH [place] 00 :00 EVERY Medical MORNING Branch JANUARY 100 2022-0 2023- No TAKE 1 Uni vers mg tablet 2-10 04-04 TABLET BY ity of 00:00: 00:00 MOUTH [place] 00 :00 EVERY Medical MORNING Branch JANUARY 100 2022-0 2022- No TAKE 1 Uni vers mg tablet 2-10 04-04 TABLET BY ity of 00:00: 00:00 MOUTH [place] 00 :00 EVERY Medical MORNING Branch JANUARY 100 2022-0 2023- No TAKE 1 Uni vers mg tablet 2-10 04-04 TABLET BY ity of 00:00: 00:00 MOUTH [place] 00 :00 EVERY Medical MORNING Branch JANUARY 100 2022-2022- No TAKE 1 Uni vers mg tablet 2-04 TABLET BY ity of 00:00: 00:00 MOUTH [place] 00 :00 EVERY Medical MORNING Branch JANUARY 100 2022- No TAKE 1 Uni vers mg tablet 2-04 TABLET BY ity of 00:00: 00:00 MOUTH [place] 00 :00 EVERY Medical MORNING Branch meclizine 2022-2022- No 1{tbl} Take 1 [facility] vers 25 mg 2-07 tablet by ity of tablet 08:48: 00:00 mouth as [place] 55 :00 needed. Medical Branch meclizine 2022-2022- No 1{tbl} Take 1 [facility] vers 25 mg 2-03 24- tablet by ity of tablet 08:48: 00:00 mouth as [place] 55 :00 needed. [facility] meloxicam 2022-2022- No 15mg Take 15 mg U nivers 15 mg 10-30- by mouth ity of tablet 08:36: 00:00 in the [place] 01 :[address] [facility] Branch meloxicam 2022-2022- No 15mg Take 15 mg U nivers 15 mg 10-30- by mouth ity of tablet 08:36: 00:00 in the [place] 01 :00 morning. [facility] meloxicam 2022-2022- No 15mg Take 15 mg U nivers 15 mg 10-30- by mouth ity of tablet 08:36: 00:00 in the [place] 01 :00 morning. [facility] meloxicam 2022-2022- No 15mg Take 15 mg U nivers 15 mg 10-30- by mouth ity of tablet 08:36: 00:00 in the [place] 01 :00 morning. [facility] meloxicam 2022-2022- No 15mg Take 15 mg U nivers 15 mg 10-30- by mouth ity of tablet 08:36: 00:00 in the [place] 01 :00 morning. [facility] venlafaxine 2022-2022- No 150mg Take 150 [facility] XR 150 mg 10-30- mg by ity of 24 hr 08:34: 00:00 mouth in [place] capsule 40 :00 the Medical morning. Branch venlafaxine 2023-0 2023- No 150mg Take 150 [facility] XR 150 mg 2-07 02-07 mg by [facility] 24 hr 08:34: 00:00 mouth in [place] capsule 40 :00 the Medical morning. Branch gabapentin 3-0 Yes [id number] 600mg Take 1 [facility] 600 mg 2-07 tablet by [facility] tablet 00:00: mouth in [place] 00 the Medical morning Branch and 1 tablet in the evening. meclizine 2023-0 Yes [id number] 32mg Take 1 [facility] 25 mg 2-07 tablet by [facility] tablet 00:00: mouth 3 [place] 00 (three) Medical times Branch daily as needed for Dizziness. hydrOXYzine 3-0 Yes [id number] 25mg Take 1 [facility] 25 mg 2-07 tablet by [facility] tablet 00:00: mouth [place] 00 every 6 Medical (six) Branch hours as needed for Anxiety. gabapentin 3-0 Yes [id number] 600mg Take 1 [facility] 600 mg 2-07 tablet by [facility] tablet 00:00: mouth in [place] 00 the Medical morning Branch and 1 tablet in the evening. meclizine 3-0 Yes [id number] 32mg Take 1 [facility] 25 mg 2-07 tablet by [facility] tablet 00:00: mouth 3 [place] 00 (three) Medical times Branch daily as needed for Dizziness. hydrOXYzine 3-0 Yes [id number] 25mg Take 1 [facility] 25 mg 2-07 tablet by [facility] tablet 00:00: mouth [place] 00 every 6 Medical (six) Branch hours as needed for Anxiety. gabapentin 3-0 Yes [id number] 600mg Take 1 [facility] 600 mg 2-07 tablet by [facility] tablet 00:00: mouth in [place] 00 the Medical morning Branch and 1 tablet in the evening. meclizine 2023-0 Yes [id number] 32mg Take 1 [facility] 25 mg 2-07 tablet by [facility] tablet 00:00: mouth 3 [place] 00 (three) Medical times Branch daily as needed for Dizziness. hydrOXYzine 2023-0 Yes [id number] 25mg Take 1 [facility] 25 mg 2-07 tablet by [facility] tablet 00:00: mouth [place] 00 every 6 Medical (six) Branch hours as needed for Anxiety. gabapentin 3-0 Yes [id number] 600mg Take 1 [facility] 600 mg 2-07 tablet by [facility] tablet 00:00: mouth in [place] 00 the Medical morning Branch and 1 tablet in the evening. meclizine 2023-0 Yes [id number] 32mg Take 1 [facility] 25 mg 2-07 tablet by [facility] tablet 00:00: mouth 3 [place] 00 (three) Medical times Branch daily as needed for Dizziness. hydrOXYzine 2023-0 Yes [id number] 25mg Take 1 [facility] 25 mg 2-07 tablet by [facility] tablet 00:00: mouth [place] 00 every 6 Medical (six) Branch hours as needed for Anxiety. gabapentin 2023-0 Yes [id number] 600mg Take 1 [facility] 600 mg 2-07 tablet by [facility] tablet 00:00: mouth in [place] 00 the Medical morning Branch and 1 tablet in the evening. meclizine 2023-0 Yes [id number] 32mg Take 1 [facility] 25 mg 2-07 tablet by [facility] tablet 00:00: mouth 3 [place] 00 (three) Medical times Branch daily as needed for Dizziness. hydrOXYzine 2023-0 Yes [id number] 25mg Take 1 [facility] 25 mg 2-07 tablet by [facility] tablet 00:00: mouth [place] 00 every 6 Medical (six) Branch hours as needed for Anxiety. gabapentin 2023-0 Yes [id number] 600mg Take 1 [facility] 600 mg 2-07 tablet by [facility] tablet 00:00: mouth in [place] 00 the Medical morning Branch and 1 tablet in the evening. meclizine 2023-0 Yes [id number] 32mg Take 1 [facility] 25 mg 2-07 tablet by [facility] tablet 00:00: mouth 3 [place] 00 (three) Medical times Branch daily as needed for Dizziness. hydrOXYzine 2023-0 Yes [id number] 25mg Take 1 [facility] 25 mg 2-07 tablet by [facility] tablet 00:00: mouth [place] 00 every 6 Medical (six) Branch hours as needed for Anxiety. gabapentin 2023-0 Yes [id number] 600mg Take 1 [facility] 600 mg 2-07 tablet by [facility] tablet 00:00: mouth in [place] 00 the Medical morning Branch and 1 tablet in the evening. meclizine 2023-0 Yes [id number] 32mg Take 1 [facility] 25 mg 2-07 tablet by [facility] tablet 00:00: mouth 3 [place] 00 (three) Medical times Branch daily as needed for Dizziness. hydrOXYzine 2023-0 Yes [id number] 25mg Take 1 [facility] 25 mg 2-07 tablet by [facility] tablet 00:00: mouth [place] 00 every 6 Medical (six) Branch hours as needed for Anxiety. gabapentin 2023-0 Yes [id number] 600mg Take 1 [facility] 600 mg 2-07 tablet by [facility] tablet 00:00: mouth in [place] 00 the Medical morning Branch and 1 tablet in the evening. meclizine 2023-0 Yes [id number] 32mg Take 1 [facility] 25 mg 2-07 tablet by [facility] tablet 00:00: mouth 3 [place] 00 (three) Medical times Branch daily as needed for Dizziness. hydrOXYzine 2023-0 Yes [id number] 25mg Take 1 [facility] 25 mg 2-07 tablet by [facility] tablet 00:00: mouth [place] 00 every 6 Medical (six) Branch hours as needed for Anxiety. gabapentin 2023-0 Yes [id number] 600mg Take 1 [facility] 600 mg 2-07 tablet by [facility] tablet 00:00: mouth in [place] 00 the Medical morning Branch and 1 tablet in the evening. meclizine 2023-0 Yes [id number] 32mg Take 1 [facility] 25 mg 2-07 tablet by [facility] tablet 00:00: mouth 3 [place] 00 (three) Medical times Branch daily as needed for Dizziness. hydrOXYzine 2023-0 Yes [id number] 25mg Take 1 [facility] 25 mg 2-07 tablet by [facility] tablet 00:00: mouth [place] 00 every 6 Medical (six) Branch hours as needed for Anxiety. gabapentin 2023-0 Yes [id number] 600mg Take 1 [facility] 600 mg 2-07 tablet by [facility] tablet 00:00: mouth in [place] 00 the Medical morning Branch and 1 tablet in the evening. meclizine 2023-0 Yes [id number] 32mg Take 1 [facility] 25 mg 2-07 tablet by [facility] tablet 00:00: mouth 3 [place] 00 (three) Medical times Branch daily as needed for Dizziness. hydrOXYzine 2023-0 Yes [id number] 25mg Take 1 [facility] 25 mg 2-07 tablet by [facility] tablet 00:00: mouth [place] 00 every 6 Medical (six) Branch hours as needed for Anxiety. gabapentin 2023-0 Yes [id number] 600mg Take 1 [facility] 600 mg 2-07 tablet by [facility] tablet 00:00: mouth in [place] 00 the Medical morning Branch and 1 tablet in the evening. meclizine 2023-0 Yes [id number] 32mg Take 1 [facility] 25 mg 2-07 tablet by [facility] tablet 00:00: mouth 3 [place] 00 (three) Medical times Branch daily as needed for Dizziness. hydrOXYzine 2023-0 Yes [id number] 25mg Take 1 [facility] 25 mg 2-07 tablet by [facility] tablet 00:00: mouth [place] 00 every 6 Medical (six) Branch hours as needed for Anxiety. gabapentin 2023-0 Yes [id number] 600mg Take 1 [facility] 600 mg 2-07 tablet by [facility] tablet 00:00: mouth in [place] 00 the Medical morning Branch and 1 tablet in the evening. meclizine 2023-0 Yes [id number] 32mg Take 1 [facility] 25 mg 2-07 tablet by [facility] tablet 00:00: mouth 3 [place] 00 (three) Medical times Branch daily as needed for Dizziness. hydrOXYzine 2023-0 Yes [id number] 25mg Take 1 [facility] 25 mg 2-07 tablet by [facility] tablet 00:00: mouth [place] 00 every 6 Medical (six) Branch hours as needed for Anxiety. gabapentin 2023-0 Yes [id number] 600mg Take 1 [facility] 600 mg 2-07 tablet by [facility] tablet 00:00: mouth in [place] 00 the Medical morning Branch and 1 tablet in the evening. meclizine 2023-0 Yes [id number] 32mg Take 1 [facility] 25 mg 2-07 tablet by [facility] tablet 00:00: mouth 3 00 (three) Medical times Branch daily as needed for Dizziness. hydrOXYzine 2023-0 Yes [id number] 25mg Take 1 [facility] 25 mg 2-07 tablet by [facility] tablet 00:00: mouth [place] 00 every 6 Medical (six) Branch hours as needed for Anxiety. gabapentin 2023-0 Yes [id number] 600mg Take 1 [facility] 600 mg 2-07 tablet by [facility] tablet 00:00: mouth in [place] 00 the Medical morning Branch and 1 tablet in the evening. meclizine 2023-0 Yes [id number] 32mg Take 1 [facility] 25 mg 2-07 tablet by [facility] tablet 00:00: mouth 3 [place] 00 (three) Medical times Branch daily as needed for Dizziness. hydrOXYzine 2023-0 Yes [id number] 25mg Take 1 [facility] 25 mg 2-07 tablet by [facility] tablet 00:00: mouth [place] 00 every 6 Medical (six) Branch hours as needed for Anxiety. gabapentin 2023-0 Yes [id number] 600mg Take 1 [facility] 600 mg 2-07 tablet by [facility] tablet 00:00: mouth in [place] 00 the Medical morning Branch and 1 tablet in the evening. meclizine 2023-0 Yes [id number] 32mg Take 1 [facility] 25 mg 2-07 tablet by [facility] tablet 00:00: mouth 3 [place] 00 (three) Medical times Branch daily as needed for Dizziness. hydrOXYzine 2023-0 Yes [id number] 25mg Take 1 [facility] 25 mg 2-07 tablet by [facility] tablet 00:00: mouth [place] 00 every 6 Medical (six) Branch hours as needed for Anxiety. gabapentin 2023-0 Yes [id number] 600mg Take 1 [facility] 600 mg 2-07 tablet by [facility] tablet 00:00: mouth in [place] 00 the Medical morning Branch and 1 tablet in the evening. meclizine 2023-0 Yes [id number] 32mg Take 1 [facility] 25 mg 2-07 tablet by [facility] tablet 00:00: mouth 3 [place] 00 (three) Medical times Branch daily as needed for Dizziness. hydrOXYzine 2023-0 Yes [id number] 25mg Take 1 [facility] 25 mg 2-07 tablet by [facility] tablet 00:00: mouth [place] 00 every 6 Medical (six) Branch hours as needed for Anxiety. gabapentin 2023-0 Yes [id number] 600mg Take 1 [facility] 600 mg 2-07 tablet by [facility] tablet 00:00: mouth in [place] 00 the Medical morning Branch and 1 tablet in the evening. meclizine 2023-0 Yes [id number] 32mg Take 1 [facility] 25 mg 2-07 tablet by [facility] tablet 00:00: mouth 3 [place] 00 (three) Medical times Branch daily as needed for Dizziness. hydrOXYzine 2023-0 Yes [id number] 25mg Take 1 [facility] 25 mg 2-07 tablet by [facility] tablet 00:00: mouth [place] 00 every 6 Medical (six) Branch hours as needed for Anxiety. gabapentin 2023-0 Yes [id number] 600mg Take 1 [facility] 600 mg 2-07 tablet by [facility] tablet 00:00: mouth in 00 the Medical morning Branch and 1 tablet in the evening. meclizine 2022-0 Yes [id number] 32mg Take 1 [facility] 25 mg 2-07 tablet by [facility] tablet 00:00: mouth 3 (three) Medical times Branch daily as needed for Dizziness. gabapentin 2022-0 Yes [id number] 600mg Take 1 [facility] 600 mg 2-07 tablet by [facility] tablet 00:00: mouth in 00 the Medical morning Branch and 1 tablet in the evening. meclizine 2022-0 Yes [id number] 32mg Take 1 [facility] 25 mg 2-07 tablet by [facility] tablet 00:00: mouth 3 (three) Medical times Branch daily as needed for Dizziness. meclizine 2022-0 Yes [id number] 32mg Take 1 [facility] 25 mg 2-07 tablet by [facility] tablet 00:00: mouth 3 (three) Medical times Branch daily as needed for Dizziness. meclizine 2022-0 Yes [id number] 32mg Take 1 [facility] 25 mg 2-07 tablet by [facility] tablet 00:00: mouth 3 (three) Medical times Branch daily as needed for Dizziness. meclizine 2022-0 Yes [id number] 32mg Take 1 [facility] 25 mg 2-07 tablet by [facility] tablet 00:00: mouth 3 (three) Medical times Branch daily as needed for Dizziness. meclizine 2022-0 Yes [id number] 32mg Take 1 [facility] 25 mg 2-07 tablet by [facility] tablet 00:00: mouth 3 (three) Medical times Branch daily as needed for Dizziness. meclizine 2022-0 Yes [id number] 32mg Take 1 [facility] 25 mg 2-07 tablet by [facility] tablet 00:00: mouth 3 (three) Medical times Branch daily as needed for Dizziness. meclizine 2022-0 Yes [id number] 32mg Take 1 [facility] 25 mg 2-07 tablet by [facility] tablet 00:00: mouth 3 (three) Medical times Branch daily as needed for Dizziness. meclizine 2022-0 Yes [id number] 32mg Take 1 [facility] 25 mg 2-07 tablet by [facility] tablet 00:00: mouth 3 (three) Medical times Branch daily as needed for Dizziness. meclizine 2022-0 Yes [id number] 32mg Take 1 [facility] 25 mg 2-07 tablet by [facility] tablet 00:00: mouth 3 (three) Medical times Branch daily as needed for Dizziness. meclizine 2022-0 Yes [id number] 32mg Take 1 [facility] 25 mg 2-07 tablet by [facility] tablet 00:00: mouth (three) Medical times Branch daily as needed for Dizziness. meclizine 2022-0 Yes [id number] 32mg Take 1 [facility] 25 mg 2-07 tablet by [facility] tablet 00:00: mouth (three) Medical times Branch daily as needed for Dizziness. meclizine 2022-0 Yes [id number] 32mg Take 1 [facility] 25 mg 2-07 tablet by [facility] tablet 00:00: mouth (three) Medical times Branch daily as needed for Dizziness. meclizine 2022-0 Yes [id number] 32mg Take 1 [facility] 25 mg 2-07 tablet by [facility] tablet 00:00: mouth (three) Medical times Branch daily as needed for Dizziness. meclizine 2022-0 Yes [id number] 32mg Take 1 [facility] 25 mg 2-07 tablet by [facility] tablet 00:00: mouth 3 (three) Medical times Branch daily as needed for Dizziness. meclizine 2022-0 Yes [id number] 32mg Take 1 [facility] 25 mg 2-07 tablet by [facility] tablet 00:00: mouth (three) Medical times Branch daily as needed for Dizziness. meclizine 2022-0 Yes [id number] 32mg Take 1 [facility] 25 mg 2-07 tablet by [facility] tablet 00:00: mouth 3 (three) Medical times Branch daily as needed for Dizziness. meclizine 2022-0 Yes [id number] 32mg Take 1 [facility] 25 mg 2-07 tablet by [facility] tablet 00:00: mouth 3 (three) Medical times Branch daily as needed for Dizziness. meclizine 2022-0 Yes [id number] 32mg Take 1 [facility] 25 mg 2-07 tablet by [facility] tablet 00:00: mouth 3 (three) Medical times Branch daily as needed for Dizziness. meclizine 2022-0 Yes [id number] 32mg Take 1 [facility] 25 mg 2-07 tablet by [facility] tablet 00:00: mouth 3 (three) Medical times Branch daily as needed for Dizziness. meclizine 2022-0 Yes [id number] 32mg Take 1 [facility] 25 mg 2-07 tablet by [facility] tablet 00:00: mouth 3 (three) Medical times Branch daily as needed for Dizziness. meclizine 2022-0 Yes [id number] 32mg Take 1 [facility] 25 mg 2-07 tablet by [facility] tablet 00:00: mouth (three) Medical times Branch daily as needed for Dizziness. meclizine 2022-0 Yes [id number] 32mg Take 1 [facility] 25 mg 2-07 tablet by [facility] tablet 00:00: mouth (three) Medical times Branch daily as needed for Dizziness. meclizine 2022-0 Yes [id number] 32mg Take 1 [facility] 25 mg 2-07 tablet by [facility] tablet 00:00: mouth (three) Medical times Branch daily as needed for Dizziness. meclizine 2022-0 Yes [id number] 32mg Take 1 [facility] 25 mg 2-07 tablet by [facility] tablet 00:00: mouth (three) Medical times Branch daily as needed for Dizziness. meclizine 2022-0 Yes [id number] 32mg Take 1 [facility] 25 mg 2-07 tablet by [facility] tablet 00:00: mouth 3 (three) Medical times Branch daily as needed for Dizziness. meclizine 2022-0 Yes [id number] 32mg Take 1 [facility] 25 mg 2-07 tablet by [facility] tablet 00:00: mouth 3 (three) Medical times Branch daily as needed for Dizziness. meclizine 2022-0 Yes [id number] 32mg Take 1 [facility] 25 mg 2-07 tablet by [facility] tablet 00:00: mouth 3 (three) Medical times Branch daily as needed for Dizziness. meclizine 2022-0 Yes [id number] 32mg Take 1 [facility] 25 mg 2-07 tablet by [facility] tablet 00:00: mouth (three) Medical times Branch daily as needed for Dizziness. meclizine 2022-0 Yes [id number] 32mg Take 1 [facility] 25 mg 2-07 tablet by [facility] tablet 00:00: mouth 3 (three) Medical times Branch daily as needed for Dizziness. meclizine 2022-0 Yes [id number] 32mg Take 1 [facility] 25 mg 2-07 tablet by [facility] tablet 00:00: mouth (three) Medical times Branch daily as needed for Dizziness. meclizine 2022-0 Yes [id number] 32mg Take 1 [facility] 25 mg 2-07 tablet by [facility] tablet 00:00: mouth (three) Medical times Branch daily as needed for Dizziness. meclizine 2022-0 Yes [id number] 32mg Take 1 [facility] 25 mg 2-07 tablet by [facility] tablet 00:00: mouth (three) Medical times Branch daily as needed for Dizziness. meclizine 2022-0 Yes [id number] 32mg Take 1 [facility] 25 mg 2-07 tablet by [facility] tablet 00:00: mouth (three) Medical times Branch daily as needed for Dizziness. meclizine 2022-0 Yes [id number] 32mg Take 1 [facility] 25 mg 2-07 tablet by [facility] tablet 00:00: mouth (three) Medical times Branch daily as needed for Dizziness. meclizine 2022-0 Yes [id number] 32mg Take 1 [facility] 25 mg 2-07 tablet by [facility] tablet 00:00: mouth (three) Medical times Branch daily as needed for Dizziness. meclizine 2022-0 Yes [id number] 32mg Take 1 [facility] 25 mg 2-07 tablet by [facility] tablet 00:00: mouth 3 (three) Medical times Branch daily as needed for Dizziness. meclizine 3-0 Yes [id number] 32mg Take 1 [facility] 25 mg 2-07 tablet by [facility] tablet 00:00: mouth (three) Medical times Branch daily as needed for Dizziness. meclizine 3-0 Yes [id number] 32mg Take 1 [facility] 25 mg 2-07 tablet by [facility] tablet 00:00: mouth 3 (three) Medical times Branch daily as needed for Dizziness. meclizine 2022-0 Yes [id number] 32mg Take 1 [facility] 25 mg 2-07 tablet by [facility] tablet 00:00: mouth 3 (three) Medical times Branch daily as needed for Dizziness. meclizine 2022-0 Yes [id number] 32mg Take 1 [facility] 25 mg 2-07 tablet by [facility] tablet 00:00: mouth (three) Medical times Branch daily as needed for Dizziness. meclizine 2022-0 Yes [id number] 32mg Take 1 [facility] 25 mg 2-07 tablet by [facility] tablet 00:00: mouth (three) Medical times Branch daily as needed for Dizziness. meclizine 2022-0 Yes [id number] 32mg Take 1 [facility] 25 mg 2-07 tablet by [facility] tablet 00:00: mouth (three) Medical times Branch daily as needed for Dizziness. meclizine 2022-0 Yes [id number] 32mg Take 1 [facility] 25 mg 2-07 tablet by [facility] tablet 00:00: mouth (three) Medical times Branch daily as needed for Dizziness. meclizine 2022-0 Yes [id number] 32mg Take 1 [facility] 25 mg 2-07 tablet by [facility] tablet 00:00: mouth (three) Medical times Branch daily as needed for Dizziness. meclizine 2022-0 Yes [id number] 32mg Take 1 [facility] 25 mg 2-07 tablet by [facility] tablet 00:00: mouth (three) Medical times Branch daily as needed for Dizziness. meclizine 3-0 Yes [id number] 32mg Take 1 [facility] 25 mg 2-07 tablet by [facility] tablet 00:00: mouth 3 (three) Medical times Branch daily as needed for Dizziness. meclizine 3-0 Yes [id number] 32mg Take 1 [facility] 25 mg 2-07 tablet by [facility] tablet 00:00: mouth 3 (three) Medical times Branch daily as needed for Dizziness. meclizine 2022-0 Yes [id number] 32mg Take 1 [facility] 25 mg 2-07 tablet by [facility] tablet 00:00: mouth 3 (three) Medical times Branch daily as needed for Dizziness. meclizine 2022-0 Yes [id number] 32mg Take 1 [facility] 25 mg 2-07 tablet by [facility] tablet 00:00: mouth (three) Medical times Branch daily as needed for Dizziness. meclizine 2022-0 Yes [id number] 32mg Take 1 [facility] 25 mg 2-07 tablet by [facility] tablet 00:00: mouth (three) Medical times Branch daily as needed for Dizziness. meclizine 2022-0 Yes [id number] 32mg Take 1 [facility] 25 mg 2-07 tablet by [facility] tablet 00:00: mouth (three) Medical times Branch daily as needed for Dizziness. meclizine 2022-0 Yes [id number] 32mg Take 1 [facility] 25 mg 2-07 tablet by [facility] tablet 00:00: mouth (three) Medical times Branch daily as needed for Dizziness. meclizine 2022-0 Yes [id number] 32mg Take 1 [facility] 25 mg 2-07 tablet by [facility] tablet 00:00: mouth 3 (three) Medical times Branch daily as needed for Dizziness. meclizine 2022-0 Yes [id number] 32mg Take 1 [facility] 25 mg 2-07 tablet by [facility] tablet 00:00: mouth (three) Medical times Branch daily as needed for Dizziness. meclizine 2022-0 Yes [id number] 32mg Take 1 [facility] 25 mg 2-07 tablet by [facility] tablet 00:00: mouth (three) Medical times Branch daily as needed for Dizziness. meclizine 3-0 Yes [id number] 32mg Take 1 [facility] 25 mg 2-07 tablet by [facility] tablet 00:00: mouth 3 (three) Medical times Branch daily as needed for Dizziness. meclizine 3-0 Yes [id number] 32mg Take 1 [facility] 25 mg 2-07 tablet by [facility] tablet 00:00: mouth 3 (three) Medical times Branch daily as needed for Dizziness. meclizine 3-0 Yes [id number] 32mg Take 1 [facility] 25 mg 2-07 tablet by [facility] tablet 00:00: mouth 3 00 (three) Medical times Branch daily as needed for Dizziness. meclizine 3-0 Yes [id number] 32mg Take 1 [facility] 25 mg 2-07 tablet by [facility] tablet 00:00: mouth 3 00 (three) Medical times Branch daily as needed for Dizziness. meclizine 3-0 Yes [id number] 32mg Take 1 [facility] 25 mg 2-07 tablet by [facility] tablet 00:00: mouth 3 (three) Medical times Branch daily as needed for Dizziness. meclizine 2022-0 Yes [id number] 32mg Take 1 [facility] 25 mg 2-07 tablet by [facility] tablet 00:00: mouth 3 (three) Medical times Branch daily as needed for Dizziness. meclizine 2022-0 Yes [id number] 32mg Take 1 [facility] 25 mg 2-07 tablet by [facility] tablet 00:00: mouth 3 (three) Medical times Branch daily as needed for Dizziness. meclizine 3-0 Yes [id number] 32mg Take 1 [facility] 25 mg 2-07 tablet by [facility] tablet 00:00: mouth 3 (three) Medical times Branch daily as needed for Dizziness. gabapentin 2022-0 2023- No [id number] 600mg Take 1 [facility] 600 mg 2-03 25- tablet by [facility] tablet 00:00: 00:00 mouth in [place] 00 :00 the Medical morning Branch and 1 tablet in the evening. gabapentin 2023-0 2023- No [id number] 600mg Take 1 [facility] 600 mg 2-03 25-27 tablet by [facility] tablet 00:00: 00:00 mouth in [place] 00 :00 the Medical morning Branch and 1 tablet in the evening. gabapentin 3-0 2023- No [id number] 600mg Take 1 [facility] 600 mg 2-03 25- tablet by [facility] tablet 00:00: 00:00 mouth in [place] 00 :00 the Medical morning Branch and 1 tablet in the evening. hydrOXYzine 2022-0 2023- No [id number] 25mg Take 1 [facility] 25 mg 2-07 03-21 tablet by [facility] tablet 00:00: 00:00 mouth [place] 00 :00 every 6 Medical (six) Branch hours as needed for Anxiety. hydrOXYzine 2023-0 2023- No [id number] 25mg Take 1 [facility] 25 mg 2-07 03-21 tablet by [facility] tablet 00:00: 00:00 mouth [place] 00 :00 every 6 Medical (six) Branch hours as needed for Anxiety. hydrOXYzine 2023-0 2023- No [id number] 25mg Take 1 [facility] 25 mg 2-07 03-21 tablet by [facility] tablet 00:00: 00:00 mouth [place] 00 :00 every 6 Medical (six) Branch hours as needed for Anxiety. hydrOXYzine 3-0 3- No [id number] 25mg Take 1 [facility] 25 mg 2-07 -21 tablet by [facility] tablet 00:00: 00:00 mouth [place] 00 :00 every 6 Medical (six) Branch hours as needed for Anxiety. famotidine 2023-0 Yes 40mg Take 40 mg [facility] 40 mg 2-06 by mouth [facility] of tablet 12:30: in the [place] [id number] morning. Medical Branch carvediloL 2023-0 Yes 25mg Take 25 mg [facility] 25 mg 2-06 by mouth [facility] of tablet 12:30: in the [place] [id number] morning Medical and 25 mg Branch in the evening. Take with meals. famotidine 2023-0 Yes 40mg Take 40 mg [facility] 40 mg 2-06 by mouth [facility] of tablet 12:30: in the [place] [id number] morning. Medical Branch carvediloL 2023-0 Yes 25mg Take 25 mg [facility] 25 mg 2-06 by mouth [facility] of tablet 12:30: in the [place] [address] morning Medical and 25 mg Branch in the evening. Take with meals. famotidine 2023-0 Yes 40mg Take 40 mg [facility] 40 mg 2-06 by mouth [facility] of tablet 12:30: in the [place] [id number] morning. Medical Branch carvediloL 2023-0 Yes 25mg Take 25 mg [facility] 25 mg 2-06 by mouth [facility] of tablet 12:30: in the [place] [address] morning Medical and 25 mg Branch in the evening. Take with meals. famotidine 2023-0 Yes 40mg Take 40 mg [facility] 40 mg 2-06 by mouth [facility] of tablet 12:30: in the [place] [id number] morning. Medical Branch carvediloL 2023-0 Yes 25mg Take 25 mg [facility] 25 mg 2-06 by mouth [facility] of tablet 12:30: in the [place] 08 morning Medical and 25 mg Branch in the evening. Take with meals. famotidine 2023-0 Yes 40mg Take 40 mg [facility] 40 mg 2-06 by mouth [facility] of tablet 12:30: in the [place] [id number] morning. Medical Branch carvediloL 2023-0 Yes 25mg Take 25 mg [facility] 25 mg 2-06 by mouth [facility] of tablet 12:30: in the [place] [address] morning Medical and 25 mg Branch in the evening. Take with meals. famotidine 2023-0 Yes 40mg Take 40 mg [facility] 40 mg 2-06 by mouth [facility] of tablet 12:30: in the [place] [id number] morning. Medical Branch carvediloL 2023-0 Yes 25mg Take 25 mg [facility] 25 mg 2-06 by mouth [facility] of tablet 12:30: in the [place] [address] morning Medical and 25 mg Branch in the evening. Take with meals. famotidine 2023-0 Yes 40mg Take 40 mg [facility] 40 mg 2-06 by mouth [facility] of tablet 12:30: in the [place] [id number] morning. Medical Branch carvediloL 2023-0 Yes 25mg Take 25 mg [facility] 25 mg 2-06 by mouth [facility] of tablet 12:30: in the [place] [address] morning Medical and 25 mg Branch in the evening. Take with meals. CLONAZEPAM 2023-0 Yes [id number] 1mg TAKE 1 [facility] 1 mg tablet 2-01 TABLET BY [facility] 00:00: MOUTH IN [place] 00 THE Medical MORNING Branch CLONAZEPAM 2023-0 Yes [id number] 1mg TAKE 1 [facility] 1 mg tablet 2-01 TABLET BY [facility] 00:00: MOUTH IN [place] 00 THE Medical MORNING Branch CLONAZEPAM 2023-0 Yes [id number] 1mg TAKE 1 [facility] 1 mg tablet 2-01 TABLET BY [facility] 00:00: MOUTH IN [place] 00 THE Medical MORNING Branch CLONAZEPAM 2023-0 Yes [id number] 1mg TAKE 1 [facility] 1 mg tablet 2-01 TABLET BY [facility] 00:00: MOUTH IN [place] 00 THE Medical MORNING Branch CLONAZEPAM 2023-0 Yes [id number] 1mg TAKE 1 [facility] 1 mg tablet 2 TABLET BY [facility] 00:00: MOUTH IN [place] 00 THE Medical MORNING Branch CLONAZEPAM 3-0 3- No [id number] 1mg TAKE 1 [facility] 1 mg tablet 10-24 TABLET BY it y of 00:00: 00:00 MOUTH IN [place] 00 :00 THE Medical MORNING Branch CLONAZEPAM 2023-0 3- No [id number] 1mg TAKE 1 [facility] 1 mg tablet 10-24 TABLET BY it y of 00:00: 00:00 MOUTH IN [place] 00 :00 THE Medical MORNING Branch CLONAZEPAM 3-0 3- No [id number] 1mg TAKE 1 [facility] 1 mg tablet 10-24 TABLET BY it y of 00:00: 00:00 MOUTH IN [place] 00 :00 THE Medical MORNING Branch CLONAZEPAM 3-0 3- No [id number] 1mg TAKE 1 [facility] 1 mg tablet 10-24 TABLET BY it y of 00:00: 00:00 MOUTH IN [place] 00 :00 THE Medical MORNING Branch predniSONE 3-0 3- No [id number] Take 3 U nivers 5 mg tablet 10-18 tablets by i ty of 00:00: :59 mouth [place] 00 :00 daily for Medical 5 days, Branch THEN 2 tablets daily for 5 days, THEN 1 tablet daily for 5 days. predniSONE 3-0 3- No [id number] Take 3 U nivers 5 mg tablet 10-18 tablets by i ty of 00:00: :59 mouth [place] 00 :00 daily for Medical 5 days, Branch THEN 2 tablets daily for 5 days, THEN 1 tablet daily for 5 days. predniSONE 3-0 3- No [id number] Take 3 U nivers 5 mg tablet 10-18 tablets by i ty of 00:00: 05:59 mouth [place] 00 :00 daily for Medical 5 days, Branch THEN 2 tablets daily for 5 days, THEN 1 tablet daily for 5 days. predniSONE 2023-0 3- No [id number] Take 3 U nivers 5 mg tablet 10-18 tablets by i ty of 00:00: 05:59 mouth [place] 00 :00 daily for Medical 5 days, Branch THEN 2 tablets daily for 5 days, THEN 1 tablet daily for 5 days. predniSONE 2022- No [id number] Take 3 U nivers 5 mg tablet 10-18-11 tablets by i ty of 00:00: 05:59 mouth [place] 00 :00 daily for Medical 5 days, Branch THEN 2 tablets daily for 5 days, THEN 1 tablet daily for 5 days. predniSONE 2022- No [id number] Take 3 U nivers 5 mg tablet 10-18-11 tablets by i ty of 00:00: 05:59 mouth [place] 00 :00 daily for Medical 5 days, Branch THEN 2 tablets daily for 5 days, THEN 1 tablet daily for 5 days. predniSONE 2022- No [id number] Take 3 U nivers 5 mg tablet 10-18-11 tablets by i ty of 00:00: 05:59 mouth [place] 00 :00 daily for Medical 5 days, Branch THEN 2 tablets daily for 5 days, THEN 1 tablet daily for 5 days. predniSONE 2022- No [id number] Take 3 U nivers 5 mg tablet 10-18-11 tablets by i ty of 00:00: 05:59 mouth [place] 00 :00 daily for Medical 5 days, Branch THEN 2 tablets daily for 5 days, THEN 1 tablet daily for 5 days. predniSONE 2022- No [id number] Take 3 U nivers 5 mg tablet 10-18- tablets by i ty of 00:00: 05:59 mouth [place] 00 :00 daily for Medical 5 days, Branch THEN 2 tablets daily for 5 days, THEN 1 tablet daily for 5 days. predniSONE 2022- No [id number] Take 3 U nivers 5 mg tablet 10-18-11 tablets by i ty of 00:00: 05:59 mouth [place] 00 :00 daily for Medical 5 days, Branch THEN 2 tablets daily for 5 days, THEN 1 tablet daily for 5 days. predniSONE 2022- No [id number] Take 3 U nivers 5 mg tablet 10-18-11 tablets by i ty of 00:00: 05:59 mouth [place] 00 :00 daily for Medical 5 days, Branch THEN 2 tablets daily for 5 days, THEN 1 tablet daily for 5 days. predniSONE 2022- No [id number] Take 3 U nivers 5 mg tablet 10-18-11 tablets by i ty of 00:00: 05:59 mouth [place] 00 :00 daily for Medical 5 days, Branch THEN 2 tablets daily for 5 days, THEN 1 tablet daily for 5 days. predniSONE 2022- No [id number] Take 3 U nivers 5 mg tablet 10-18-07 tablets by i ty of 00:00: 00:00 mouth [place] 00 :00 daily for Medical 5 days, Branch THEN 2 tablets daily for 5 days, THEN 1 tablet daily for 5 days. predniSONE 2022- No [id number] Take 3 U nivers 5 mg tablet 10-18- tablets by i ty of 00:00: 00:00 mouth [place] 00 :00 daily for Medical 5 days, Branch THEN 2 tablets daily for 5 days, THEN 1 tablet daily for 5 days. predniSONE 2022- No [id number] Take 3 U nivers 5 mg tablet 10-18- tablets by i ty of 00:00: 00:00 mouth [place] 00 :00 daily for Medical 5 days, Branch THEN 2 tablets daily for 5 days, THEN 1 tablet daily for 5 days. predniSONE 2022- No [id number] Take 3 U nivers 5 mg tablet 10-18- tablets by i ty of 00:00: 00:00 mouth [place] 00 :00 daily for Medical 5 days, Branch THEN 2 tablets daily for 5 days, THEN 1 tablet daily for 5 days. predniSONE 2022- No [id number] Take 3 U nivers 5 mg tablet 10-18- tablets by i ty of 00:00: 00:00 mouth [place] 00 :00 daily for Medical 5 days, Branch THEN 2 tablets daily for 5 days, THEN 1 tablet daily for 5 days. METFORMIN 2022-0 Yes [id number] TAKE 2 U nivers 500 mg 1-13 TABLETS BY ity of tablet 00:00: MOUTH [place] 00 TWICE Medical DAILY WITH Branch MEALS METFORMIN 2022-0 Yes [id number] TAKE 2 U nivers 500 mg 1-13 TABLETS BY ity of tablet 00:00: MOUTH [place] 00 TWICE Medical DAILY WITH Branch MEALS METFORMIN 2022-0 Yes [id number] TAKE 2 U nivers 500 mg 1-13 TABLETS BY ity of tablet 00:00: MOUTH [place] 00 TWICE Medical DAILY WITH Branch MEALS METFORMIN 2022-0 Yes [id number] TAKE 2 U nivers 500 mg 1-13 TABLETS BY ity of tablet 00:00: MOUTH 00 TWICE Medical DAILY WITH Branch MEALS METFORMIN 2023-0 Yes [id number] TAKE 2 U nivers 500 mg 1-13 TABLETS BY ity of tablet 00:00: MOUTH [place] 00 TWICE Medical DAILY WITH Branch MEALS METFORMIN 2023-0 Yes [id number] TAKE 2 U nivers 500 mg 1-13 TABLETS BY ity of tablet 00:00: MOUTH 00 TWICE Medical DAILY WITH Branch MEALS METFORMIN 2023-0 Yes [id number] TAKE 2 U nivers 500 mg 1-13 TABLETS BY ity of tablet 00:00: MOUTH 00 TWICE Medical DAILY WITH Branch MEALS METFORMIN 2023-0 Yes [id number] TAKE 2 U nivers 500 mg 1-13 TABLETS BY ity of tablet 00:00: MOUTH 00 TWICE Medical DAILY WITH Branch MEALS METFORMIN 2023-0 Yes [id number] TAKE 2 U nivers 500 mg 1-13 TABLETS BY ity of tablet 00:00: MOUTH 00 TWICE Medical DAILY WITH Branch MEALS METFORMIN 2023-0 Yes [id number] TAKE 2 U nivers 500 mg 1-13 TABLETS BY ity of tablet 00:00: MOUTH 00 TWICE Medical DAILY WITH Branch MEALS METFORMIN 2023-0 Yes [id number] TAKE 2 U nivers 500 mg 1-13 TABLETS BY ity of tablet 00:00: MOUTH 00 TWICE Medical DAILY WITH Branch MEALS METFORMIN 2023-0 Yes [id number] TAKE 2 U nivers 500 mg 1-13 TABLETS BY ity of tablet 00:00: MOUTH 00 TWICE Medical DAILY WITH Branch MEALS METFORMIN 2023-0 Yes [id number] TAKE 2 U nivers 500 mg 1-13 TABLETS BY ity of tablet 00:00: MOUTH 00 TWICE Medical DAILY WITH Branch MEALS METFORMIN 2023-0 Yes [id number] TAKE 2 U nivers 500 mg 1-13 TABLETS BY ity of tablet 00:00: MOUTH 00 TWICE Medical DAILY WITH Branch MEALS METFORMIN 2023-0 Yes [id number] TAKE 2 U nivers 500 mg 1-13 TABLETS BY ity of tablet 00:00: MOUTH 00 TWICE Medical DAILY WITH Branch MEALS METFORMIN 2023-0 Yes [id number] TAKE 2 U nivers 500 mg 1-13 TABLETS BY ity of tablet 00:00: MOUTH 00 TWICE Medical DAILY WITH Branch MEALS METFORMIN 2023-0 Yes [id number] TAKE 2 U nivers 500 mg 1-13 TABLETS BY ity of tablet 00:00: MOUTH [place] 00 TWICE Medical DAILY WITH Branch MEALS TRESIBA 0 Yes 80U inject 80 Unive rs FLEXTOUCH 1-13 Units ity of U-200 200 00:00: under the [place] as unit/mL (3 00 skin in Medica l mL) InPn the Branch morning. METFORMIN 2022-0 Yes [id number] TAKE 2 U nivers 500 mg 1-13 TABLETS BY ity of tablet 00:00: MOUTH [place] 00 TWICE Medical DAILY WITH Branch MEALS TRESIBA 0 Yes 80U inject 80 Unive rs FLEXTOUCH 1-13 Units ity of U-200 200 00:00: under the [place] unit/mL (3 00 skin in Medica l mL) InPn the Branch morning. METFORMIN 2022-0 Yes [id number] TAKE 2 U nivers 500 mg 1-13 TABLETS BY ity of tablet 00:00: MOUTH [place] 00 TWICE Medical DAILY WITH Branch MEALS TRESIBA 0 Yes 80U inject 80 Unive rs FLEXTOUCH 1-13 Units ity of U-200 200 00:00: under the [place] unit/mL (3 00 skin in Medica l mL) InPn the Branch morning. METFORMIN 2022-0 Yes [id number] TAKE 2 U nivers 500 mg 1-13 TABLETS BY ity of tablet 00:00: MOUTH [place] 00 TWICE Medical DAILY WITH Branch MEALS TRESIBA 0 Yes 80U inject 80 Unive rs FLEXTOUCH 1-13 Units ity of U-200 200 00:00: under the [place] unit/mL (3 00 skin in Medica l mL) InPn the Branch morning. METFORMIN 2022-0 Yes [id number] TAKE 2 U nivers 500 mg 1-13 TABLETS BY ity of tablet 00:00: MOUTH [place] 00 TWICE Medical DAILY WITH Branch MEALS TRESIBA 0 Yes 80U inject 80 Unive rs FLEXTOUCH 1-13 Units ity of U-200 200 00:00: under the [place] unit/mL (3 00 skin in Medica l mL) InPn the Branch morning. METFORMIN 2022-0 Yes [id number] TAKE 2 U nivers 500 mg 1-13 TABLETS BY ity of tablet 00:00: MOUTH [place] 00 TWICE Medical DAILY WITH Branch MEALS TRESIBA 2022-0 Yes 80U inject 80 Unive rs FLEXTOUCH 1-13 Units ity of U-200 200 00:00: under the [place] unit/mL (3 00 skin in Medica l mL) InPn the Branch morning. METFORMIN 2022-0 Yes [id number] TAKE 2 U nivers 500 mg 1-13 TABLETS BY ity of tablet 00:00: MOUTH [place] 00 TWICE Medical DAILY WITH Branch MEALS TRESIBA 0 Yes 80U inject 80 Unive rs FLEXTOUCH 1-13 Units ity of U-200 200 00:00: under the [place] unit/mL (3 00 skin in Medica l mL) InPn the Branch morning. METFORMIN 2022-0 Yes [id number] TAKE 2 U nivers 500 mg 1-13 TABLETS BY ity of tablet 00:00: MOUTH [place] 00 TWICE Medical DAILY WITH Branch MEALS TRESIBA 0 Yes 80U inject 80 Unive rs FLEXTOUCH 1-13 Units ity of U-200 200 00:00: under the [place] unit/mL (3 00 skin in Medica l mL) InPn the Branch morning. METFORMIN 2022-0 Yes [id number] TAKE 2 U nivers 500 mg 1-13 TABLETS BY ity of tablet 00:00: MOUTH [place] 00 TWICE Medical DAILY WITH Branch MEALS TRESIBA 0 Yes 80U inject 80 Unive rs FLEXTOUCH 1-13 Units ity of U-200 200 00:00: under the [place] unit/mL (3 00 skin in Medica l mL) InPn the Branch morning. METFORMIN 2022-0 Yes [id number] TAKE 2 U nivers 500 mg 1-13 TABLETS BY ity of tablet 00:00: MOUTH [place] 00 TWICE Medical DAILY WITH Branch MEALS TRESIBA 2022-0 Yes 80U inject 80 Unive rs FLEXTOUCH 1-13 Units ity of U-200 200 00:00: under the [place] as unit/mL (3 00 skin in Medica l mL) InPn the Branch morning. METFORMIN 2022-0 Yes [id number] TAKE 2 U nivers 500 mg 1-13 TABLETS BY ity of tablet 00:00: MOUTH [place] 00 TWICE Medical DAILY WITH Branch MEALS TRESIBA 2022-0 Yes 80U inject 80 Unive rs FLEXTOUCH 1-13 Units ity of U-200 200 00:00: under the [place] as unit/mL (3 00 skin in Medica l mL) InPn the Branch morning. METFORMIN 2022-0 Yes [id number] TAKE 2 U nivers 500 mg 1-13 TABLETS BY ity of tablet 00:00: MOUTH [place] 00 TWICE Medical DAILY WITH Branch MEALS TRESIBA 0 Yes 80U inject 80 Unive rs FLEXTOUCH 1-13 Units ity of U-200 200 00:00: under the [place] as unit/mL (3 00 skin in Medica l mL) InPn the Branch morning. METFORMIN 2022-0 Yes [id number] TAKE 2 U nivers 500 mg 1-13 TABLETS BY ity of tablet 00:00: MOUTH [place] 00 TWICE Medical DAILY WITH Branch MEALS TRESIBA 0 Yes 80U inject 80 Unive rs FLEXTOUCH 1-13 Units ity of U-200 200 00:00: under the [place] as unit/mL (3 00 skin in Medica l mL) InPn the Branch morning. METFORMIN 2022-0 Yes [id number] TAKE 2 U nivers 500 mg 1-13 TABLETS BY ity of tablet 00:00: MOUTH [place] 00 TWICE Medical DAILY WITH Branch MEALS TRESIBA 0 Yes 80U inject 80 Unive rs FLEXTOUCH 1-13 Units ity of U-200 200 00:00: under the [place] as unit/mL (3 00 skin in Medica l mL) InPn the [place] morning. METFORMIN 2022-0 Yes [id number] TAKE 2 U nivers 500 mg 1-13 TABLETS BY ity of tablet 00:00: MOUTH [place] 00 TWICE Medical DAILY WITH Branch MEALS TRESIBA 2022-0 Yes 80U inject 80 Unive rs FLEXTOUCH 1-13 Units ity of U-200 200 00:00: under the [place] as unit/mL (3 00 skin in Medica l mL) InPn the Branch morning. METFORMIN 2022-0 Yes [id number] TAKE 2 U nivers 500 mg 1-13 TABLETS BY ity of tablet 00:00: MOUTH [place] 00 TWICE Medical DAILY WITH Branch MEALS TRESIBA 2022-0 Yes 80U inject 80 Unive rs FLEXTOUCH 1-13 Units ity of U-200 200 00:00: under the [place] as unit/mL (3 00 skin in Medica l mL) InPn the Branch morning. METFORMIN 2022-0 Yes [id number] TAKE 2 U nivers 500 mg 1-13 TABLETS BY ity of tablet 00:00: MOUTH [place] 00 TWICE Medical DAILY WITH Branch MEALS TRESIBA 2022-0 Yes 80U inject 80 Unive rs FLEXTOUCH 1-13 Units ity of U-200 200 00:00: under the [place] as unit/mL (3 00 skin in Medica l mL) InPn the Branch morning. METFORMIN 2022-0 Yes [id number] TAKE 2 U nivers 500 mg 1-13 TABLETS BY ity of tablet 00:00: MOUTH [place] 00 TWICE Medical DAILY WITH Branch MEALS METFORMIN 3-0 Yes [id number] TAKE 2 U nivers 500 mg 1-13 TABLETS BY ity of tablet 00:00: MOUTH [place] 00 TWICE Medical DAILY WITH Branch MEALS METFORMIN 3-0 Yes [id number] TAKE 2 U nivers 500 mg 1-13 TABLETS BY ity of tablet 00:00: MOUTH [place] 00 TWICE Medical DAILY WITH Branch MEALS METFORMIN 3-0 Yes [id number] TAKE 2 U nivers 500 mg 1-13 TABLETS BY ity of tablet 00:00: MOUTH [place] 00 TWICE Medical DAILY WITH Branch MEALS METFORMIN 2023-0 Yes [id number] TAKE 2 U nivers 500 mg 1-13 TABLETS BY ity of tablet 00:00: MOUTH [place] 00 TWICE Medical DAILY WITH Branch MEALS METFORMIN 2023-0 Yes [id number] TAKE 2 U nivers 500 mg 1-13 TABLETS BY ity of tablet 00:00: MOUTH [place] 00 TWICE Medical DAILY WITH Branch MEALS METFORMIN 2023-0 Yes [id number] TAKE 2 U nivers 500 mg 1-13 TABLETS BY ity of tablet 00:00: MOUTH [place] 00 TWICE Medical DAILY WITH Branch MEALS METFORMIN 2023-0 Yes [id number] TAKE 2 U nivers 500 mg 1-13 TABLETS BY ity of tablet 00:00: MOUTH [place] 00 TWICE Medical DAILY WITH Branch MEALS METFORMIN 2023-0 Yes [id number] TAKE 2 U nivers 500 mg 1-13 TABLETS BY ity of tablet 00:00: MOUTH [place] 00 TWICE Medical DAILY WITH Branch MEALS METFORMIN 2023-0 Yes [id number] TAKE 2 U nivers 500 mg 1-13 TABLETS BY ity of tablet 00:00: MOUTH [place] 00 TWICE Medical DAILY WITH Branch MEALS METFORMIN 2023-0 Yes [id number] TAKE 2 U nivers 500 mg 1-13 TABLETS BY ity of tablet 00:00: MOUTH 00 TWICE Medical DAILY WITH Branch MEALS METFORMIN 2023-0 Yes [id number] TAKE 2 U nivers 500 mg 1-13 TABLETS BY ity of tablet 00:00: MOUTH 00 TWICE Medical DAILY WITH Branch MEALS METFORMIN 2023-0 Yes [id number] TAKE 2 U nivers 500 mg 1-13 TABLETS BY ity of tablet 00:00: MOUTH 00 TWICE Medical DAILY WITH Branch MEALS METFORMIN 2023-0 Yes [id number] TAKE 2 U nivers 500 mg 1-13 TABLETS BY ity of tablet 00:00: MOUTH 00 TWICE Medical DAILY WITH Branch MEALS METFORMIN 2023-0 Yes [id number] TAKE 2 U nivers 500 mg 1-13 TABLETS BY ity of tablet 00:00: MOUTH 00 TWICE Medical DAILY WITH Branch MEALS METFORMIN 2023-0 Yes [id number] TAKE 2 U nivers 500 mg 1-13 TABLETS BY ity of tablet 00:00: MOUTH 00 TWICE Medical DAILY WITH Branch MEALS METFORMIN 2023-0 Yes [id number] TAKE 2 U nivers 500 mg 1-13 TABLETS BY ity of tablet 00:00: MOUTH 00 TWICE Medical DAILY WITH Branch MEALS METFORMIN 2023-0 Yes [id number] TAKE 2 U nivers 500 mg 1-13 TABLETS BY ity of tablet 00:00: MOUTH 00 TWICE Medical DAILY WITH Branch MEALS METFORMIN 2023-0 Yes [id number] TAKE 2 U nivers 500 mg 1-13 TABLETS BY ity of tablet 00:00: MOUTH 00 TWICE Medical DAILY WITH Branch MEALS METFORMIN 2023-0 Yes [id number] TAKE 2 U nivers 500 mg 1-13 TABLETS BY ity of tablet 00:00: MOUTH 00 TWICE Medical DAILY WITH Branch MEALS METFORMIN 2023-0 Yes [id number] TAKE 2 U nivers 500 mg 1-13 TABLETS BY ity of tablet 00:00: MOUTH 00 TWICE Medical DAILY WITH Branch MEALS METFORMIN 2023-0 Yes [id number] TAKE 2 U nivers 500 mg 1-13 TABLETS BY ity of tablet 00:00: MOUTH 00 TWICE Medical DAILY WITH Branch MEALS METFORMIN 2023-0 Yes [id number] TAKE 2 U nivers 500 mg 1-13 TABLETS BY ity of tablet 00:00: MOUTH [place] 00 TWICE Medical DAILY WITH Branch MEALS METFORMIN 2023-0 Yes [id number] TAKE 2 U nivers 500 mg 1-13 TABLETS BY ity of tablet 00:00: MOUTH [place] 00 TWICE Medical DAILY WITH Branch MEALS METFORMIN 2023-0 Yes [id number] TAKE 2 U nivers 500 mg 1-13 TABLETS BY ity of tablet 00:00: MOUTH [place] 00 TWICE Medical DAILY WITH Branch MEALS METFORMIN 2023-0 Yes [id number] TAKE 2 U nivers 500 mg 1-13 TABLETS BY ity of tablet 00:00: MOUTH [place] 00 TWICE Medical DAILY WITH Branch MEALS METFORMIN 2023-0 Yes [id number] TAKE 2 U nivers 500 mg 1-13 TABLETS BY ity of tablet 00:00: MOUTH 00 TWICE Medical DAILY WITH Branch MEALS METFORMIN 2023-0 Yes [id number] TAKE 2 U nivers 500 mg 1-13 TABLETS BY ity of tablet 00:00: MOUTH 00 TWICE Medical DAILY WITH Branch MEALS METFORMIN 2023-0 Yes [id number] TAKE 2 U nivers 500 mg 1-13 TABLETS BY ity of tablet 00:00: MOUTH 00 TWICE Medical DAILY WITH Branch MEALS METFORMIN 2023-0 Yes [id number] TAKE 2 U nivers 500 mg 1-13 TABLETS BY ity of tablet 00:00: MOUTH 00 TWICE Medical DAILY WITH Branch MEALS METFORMIN 2023-0 Yes [id number] TAKE 2 U nivers 500 mg 1-13 TABLETS BY ity of tablet 00:00: MOUTH 00 TWICE Medical DAILY WITH Branch MEALS METFORMIN 2023-0 Yes [id number] TAKE 2 U nivers 500 mg 1-13 TABLETS BY ity of tablet 00:00: MOUTH 00 TWICE Medical DAILY WITH Branch MEALS METFORMIN 2023-0 Yes [id number] TAKE 2 U nivers 500 mg 1-13 TABLETS BY ity of tablet 00:00: MOUTH 00 TWICE Medical DAILY WITH Branch MEALS METFORMIN 2023-0 Yes [id number] TAKE 2 U nivers 500 mg 1-13 TABLETS BY ity of tablet 00:00: MOUTH 00 TWICE Medical DAILY WITH Branch MEALS METFORMIN 2023-0 Yes [id number] TAKE 2 U nivers 500 mg 1-13 TABLETS BY ity of tablet 00:00: MOUTH 00 TWICE Medical DAILY WITH Branch MEALS METFORMIN 2023-0 Yes [id number] TAKE 2 U nivers 500 mg 1-13 TABLETS BY ity of tablet 00:00: MOUTH 00 TWICE Medical DAILY WITH Branch MEALS METFORMIN 2023-0 Yes [id number] TAKE 2 U nivers 500 mg 1-13 TABLETS BY ity of tablet 00:00: MOUTH 00 TWICE Medical DAILY WITH Branch MEALS METFORMIN 2023-0 Yes [id number] TAKE 2 U nivers 500 mg 1-13 TABLETS BY ity of tablet 00:00: MOUTH 00 TWICE Medical DAILY WITH Branch MEALS METFORMIN 2023-0 Yes [id number] TAKE 2 U nivers 500 mg 1-13 TABLETS BY ity of tablet 00:00: MOUTH 00 TWICE Medical DAILY WITH Branch MEALS METFORMIN 2023-0 Yes [id number] TAKE 2 U nivers 500 mg 1-13 TABLETS BY ity of tablet 00:00: MOUTH 00 TWICE Medical DAILY WITH Branch MEALS METFORMIN 2023-0 Yes [id number] TAKE 2 U nivers 500 mg 1-13 TABLETS BY ity of tablet 00:00: MOUTH 00 TWICE Medical DAILY WITH Branch MEALS METFORMIN 2023-0 Yes [id number] TAKE 2 U nivers 500 mg 1-13 TABLETS BY ity of tablet 00:00: MOUTH 00 TWICE Medical DAILY WITH Branch MEALS METFORMIN 2023-0 Yes [id number] TAKE 2 U nivers 500 mg 1-13 TABLETS BY ity of tablet 00:00: MOUTH 00 TWICE Medical DAILY WITH Branch MEALS METFORMIN 2023-0 Yes [id number] TAKE 2 U nivers 500 mg 1-13 TABLETS BY ity of tablet 00:00: MOUTH 00 TWICE Medical DAILY WITH Branch MEALS METFORMIN 2023-0 Yes [id number] TAKE 2 U nivers 500 mg 1-13 TABLETS BY ity of tablet 00:00: MOUTH 00 TWICE Medical DAILY WITH Branch MEALS METFORMIN 2023-0 Yes [id number] TAKE 2 U nivers 500 mg 1-13 TABLETS BY ity of tablet 00:00: MOUTH 00 TWICE Medical DAILY WITH Branch MEALS METFORMIN 2023-0 Yes [id number] TAKE 2 U nivers 500 mg 1-13 TABLETS BY ity of tablet 00:00: MOUTH 00 TWICE Medical DAILY WITH Branch MEALS METFORMIN 2023-0 Yes [id number] TAKE 2 U nivers 500 mg 1-13 TABLETS BY ity of tablet 00:00: MOUTH 00 TWICE Medical DAILY WITH Branch MEALS METFORMIN 2023-0 Yes [id number] TAKE 2 U nivers 500 mg 1-13 TABLETS BY ity of tablet 00:00: MOUTH [place] 00 TWICE Medical DAILY WITH Branch MEALS METFORMIN 2023-0 Yes [id number] TAKE 2 U nivers 500 mg 1-13 TABLETS BY ity of tablet 00:00: MOUTH [place] 00 TWICE Medical DAILY WITH Branch MEALS METFORMIN 2023-0 Yes [id number] TAKE 2 U nivers 500 mg 1-13 TABLETS BY ity of tablet 00:00: MOUTH 00 TWICE Medical DAILY WITH Branch MEALS METFORMIN 2023-0 Yes [id number] TAKE 2 U nivers 500 mg 1-13 TABLETS BY ity of tablet 00:00: MOUTH 00 TWICE Medical DAILY WITH Branch MEALS METFORMIN 2023-0 Yes [id number] TAKE 2 U nivers 500 mg 1-13 TABLETS BY ity of tablet 00:00: MOUTH 00 TWICE Medical DAILY WITH Branch MEALS METFORMIN 2023-0 Yes [id number] TAKE 2 U nivers 500 mg 1-13 TABLETS BY ity of tablet 00:00: MOUTH 00 TWICE Medical DAILY WITH Branch MEALS METFORMIN 2023-0 Yes [id number] TAKE 2 U nivers 500 mg 1-13 TABLETS BY ity of tablet 00:00: MOUTH 00 TWICE Medical DAILY WITH Branch MEALS METFORMIN 2023-0 Yes [id number] TAKE 2 U nivers 500 mg 1-13 TABLETS BY ity of tablet 00:00: MOUTH 00 TWICE Medical DAILY WITH Branch MEALS METFORMIN 2023-0 Yes [id number] TAKE 2 U nivers 500 mg 1-13 TABLETS BY ity of tablet 00:00: MOUTH 00 TWICE Medical DAILY WITH Branch MEALS METFORMIN 2023-0 Yes [id number] TAKE 2 U nivers 500 mg 1-13 TABLETS BY ity of tablet 00:00: MOUTH 00 TWICE Medical DAILY WITH Branch MEALS METFORMIN 2023-0 Yes [id number] TAKE 2 U nivers 500 mg 1-13 TABLETS BY ity of tablet 00:00: MOUTH 00 TWICE Medical DAILY WITH Branch MEALS METFORMIN 2023-0 Yes [id number] TAKE 2 U nivers 500 mg 1-13 TABLETS BY ity of tablet 00:00: MOUTH 00 TWICE Medical DAILY WITH Branch MEALS METFORMIN 2023-0 Yes [id number] TAKE 2 U nivers 500 mg 1-13 TABLETS BY ity of tablet 00:00: MOUTH 00 TWICE Medical DAILY WITH Branch MEALS METFORMIN 2023-0 Yes [id number] TAKE 2 U nivers 500 mg 1-13 TABLETS BY ity of tablet 00:00: MOUTH [place] 00 TWICE Medical DAILY WITH Branch MEALS METFORMIN 2022-0 Yes [id number] TAKE 2 U nivers 500 mg 1-13 TABLETS BY ity of tablet 00:00: MOUTH [place] 00 TWICE Medical DAILY WITH Branch MEALS METFORMIN 2022-0 Yes [id number] TAKE 2 U nivers 500 mg 1-13 TABLETS BY ity of tablet 00:00: MOUTH [place] 00 TWICE Medical DAILY WITH Branch MEALS METFORMIN 2022-0 Yes [id number] TAKE 2 U nivers 500 mg 1-13 TABLETS BY ity of tablet 00:00: MOUTH [place] 00 TWICE Medical DAILY WITH Branch MEALS TRESIBA 2022-0 2022- No 80U inject 80 Univ ers FLEXTOUCH 1-13 03-13 Units ity of U-200 200 00:00: 00:00 under the [place] unit/mL (3 00 :00 skin in Medica l mL) InPn the Branch morning. [facility] Yes [id number] TAKE 1 [facility] E 15 mg 2-23 TABLET BY ity of tablet 00:00: MOUTH [place] 00 EVERY DAY [facility] Yes [id number] TAKE 1 Univers E 15 mg 2-23 TABLET BY ity of tablet 00:00: MOUTH [place] 00 EVERY DAY [facility] PIOGLITAZON 2021-09 Yes [id number] TAKE 1 Univers E 15 mg 2-23 TABLET BY ity of tablet 00:00: MOUTH [place] 00 EVERY DAY [facility] PIOGLITAZON 2021-09 Yes [id number] TAKE 1 Univers E 15 mg 2-23 TABLET BY ity of tablet 00:00: MOUTH [place] 00 EVERY DAY [facility] PIOGLITAZON 2021-09 Yes [id number] TAKE 1 Univers E 15 mg 2-23 TABLET BY ity of tablet 00:00: MOUTH [place] 00 EVERY DAY [facility] PIOGLITAZON 2021-09 Yes [id number] TAKE 1 Univers E 15 mg 2-23 TABLET BY ity of tablet 00:00: MOUTH [place] 00 EVERY DAY [facility] PIOGLITAZON 2021-09 Yes [id number] TAKE 1 Univers E 15 mg 2-23 TABLET BY ity of tablet 00:00: MOUTH [place] 00 EVERY DAY [facility] PIOGLITAZON 2021-09 Yes [id number] TAKE 1 Univers E 15 mg 2-23 TABLET BY ity of tablet 00:00: MOUTH [place] DAY Medical [facility] 2021-09 Yes [id number] TAKE 1 Univers E 15 mg 2-23 TABLET BY ity of tablet 00:00: MOUTH [place] Medical Branch [facility] 2021-09 Yes [id number] TAKE 1 Univers E 15 mg 2-23 TABLET BY ity of tablet 00:00: [facility] DAY Medical Branch [facility] 2021-09 Yes [id number] TAKE 1 Univers E 15 mg 2-23 TABLET BY ity of tablet 00:00: [facility] DAY Medical [facility] 2021-09 Yes [id number] TAKE 1 Univers E 15 mg 2-23 TABLET BY ity of tablet 00:00: [facility] Medical Branch [facility] 2021-09 Yes [id number] TAKE 1 Univers E 15 mg 2-23 TABLET BY ity of tablet 00:00: [facility] Medical Branch [facility] 2021-09 Yes [id number] TAKE 1 Univers E 15 mg 2-23 TABLET BY ity of tablet 00:00: [facility] DAY Medical [facility] 2021-09 Yes [id number] TAKE 1 Univers E 15 mg 2-23 TABLET BY ity of tablet 00:00: [facility] Medical Branch [facility] 2021-09 Yes [id number] TAKE 1 Univers E 15 mg 2-23 TABLET BY ity of tablet 00:00: [facility] DAY Medical Branch [facility] 2021-09 Yes [id number] TAKE 1 Univers E 15 mg 2-23 TABLET BY ity of tablet 00:00: [facility] 00 DAY Medical Branch [facility] 2021-09 Yes [id number] TAKE 1 Univers E 15 mg 2-23 TABLET BY ity of tablet 00:00: [facility] DAY Medical Branch [facility] 2021-09 Yes [id number] TAKE 1 [facility] E 15 mg 2-23 TABLET BY ity of tablet 00:00: [facility] DAY Medical Branch [facility] 2021-09 Yes [id number] TAKE 1 Univers E 15 mg 2-23 TABLET BY ity of tablet 00:00: MOUTH [place] 00 DAY [facility] [id number] TAKE 1 [facility] E 15 mg 2-23 TABLET BY ity of tablet 00:00: [facility] [id number] TAKE 1 [facility] 15 mg 2-23 TABLET BY [facility] of tablet 00:00: [facility] DAY [facility] Branch [facility]09 Yes [id number] TAKE 1 [facility] 15 mg 2-23 TABLET BY [facility] tablet 00:00: MOUTH [place] DAY Medical Branch [facility] 2021-09 Yes [id number] TAKE 1 [facility] 15 mg 2-23 TABLET BY [facility] of tablet 00:00: [facility] DAY Medical Branch [facility] 2021-09 Yes [id number] TAKE 1 [facility] 15 mg 2-23 TABLET BY [facility]y of tablet 00:00: [facility] Medical Branch [facility] 2021-09 Yes [id number] TAKE 1 [facility] 15 mg 2-23 TABLET BY [facility] of tablet 00:00: [facility] DAY Medical Branch [facility] 2021-09 Yes [id number] TAKE 1 [facility] 15 mg 2-23 TABLET BY [facility] of tablet 00:00: [facility] DAY Medical Branch [facility] 2021-09 Yes [id number] TAKE 1 [facility] 15 mg 2-23 TABLET BY [facility]y of tablet 00:00: [facility] DAY Medical Branch [facility] 2021-09 Yes [id number] TAKE 1 [facility] 15 mg 2-23 TABLET BY [facility] of tablet 00:00: [facility] DAY [facility] Yes [id number] TAKE 1 [facility] 15 mg 2-23 TABLET BY [facility] tablet 00:00: [facility] DAY [facility] Yes [id number] TAKE 1 [facility] 15 mg 2-23 TABLET BY [facility] tablet 00:00: [facility] DAY [facility] Yes [id number] TAKE 1 [facility] 15 mg 2-23 TABLET BY [facility] of tablet 00:00: [facility] DAY Medical Branch [facility] 2021-09 Yes [id number] TAKE 1 [facility] 15 mg 2-23 TABLET BY ity of tablet 00:00: MOUTH [place] DAY Medical [facility] 2021-09 Yes [id number] TAKE 1 [facility] 15 mg 2-23 TABLET BY ity of tablet 00:00: MOUTH [place] Medical Branch [facility] 2021-09 Yes [id number] TAKE 1 [facility] 15 mg 2-23 TABLET BY [facility] of tablet 00:00: [facility] DAY Medical Branch [facility] 2021-09 Yes [id number] TAKE 1 [facility] 15 mg 2-23 TABLET BY ity of tablet 00:00: [facility] DAY Medical [facility] 2021-09 Yes [id number] TAKE 1 [facility] 15 mg 2-23 TABLET BY [facility] of tablet 00:00: [facility] Medical Branch [facility] 2021-09 Yes [id number] TAKE 1 [facility] 15 mg 2-23 TABLET BY [facility]y of tablet 00:00: [facility] Medical Branch [facility] 2021-09 Yes [id number] TAKE 1 [facility] 15 mg 2-23 TABLET BY ity of tablet 00:00: [facility] DAY Medical [facility] 2021-09 Yes [id number] TAKE 1 [facility] 15 mg 2-23 TABLET BY [facility] of tablet 00:00: [facility] Branch [facility] 2021-09 Yes [id number] TAKE 1 [facility] 15 mg 2-23 TABLET BY [facility] of tablet 00:00: [facility] DAY Medical Branch [facility] 2021-09 Yes [id number] TAKE 1 [facility] 15 mg 2-23 TABLET BY [facility] of tablet 00:00: [facility] 00 DAY Medical Branch [facility] 2021-09 Yes [id number] TAKE 1 [facility] 15 mg 2-23 TABLET BY [facility] of tablet 00:00: [facility] DAY Medical Branch [facility] 2021-09 Yes [id number] TAKE 1 [facility] 15 mg 2-23 TABLET BY it[facility] of tablet 00:00: [facility] DAY Medical Branch [facility] 2021-09 Yes [id number] TAKE 1 [facility] 15 mg 2-23 TABLET BY [facility] of tablet 00:00: MOUTH [place] [facility] DAY [facility] [id number] TAKE 1 [facility] 15 mg 2-23 TABLET BY [facility] tablet 00:00: [facility] Yes [id number] TAKE 1 [facility] 15 mg 2-23 TABLET BY [facility] of tablet 00:00: [facility] DAY [facility] Branch [facility] 2021-09 Yes [id number] TAKE 1 [facility] 15 mg 2-23 TABLET BY [facility] tablet 00:00: MOUTH [place] DAY [facility] 2021-09 Yes [id number] TAKE 1 [facility] 15 mg 2-23 TABLET BY [facility]y of tablet 00:00: [facility] DAY [facility] Branch [facility] 2021-09 Yes [id number] TAKE 1 [facility] 15 mg 2-23 TABLET BY [facility] of tablet 00:00: [facility] Medical Branch [facility] 2021-09 Yes [id number] TAKE 1 [facility] 15 mg 2-23 TABLET BY [facility]y of tablet 00:00: [facility] DAY Medical Branch [facility] 2021-09 Yes [id number] TAKE 1 [facility] 15 mg 2-23 TABLET BY [facility]y of tablet 00:00: [facility] DAY Medical Branch [facility] 2021-09 Yes [id number] TAKE 1 [facility] 15 mg 2-23 TABLET BY [facility] of tablet 00:00: [facility] DAY Medical Branch [facility] 2021-09 Yes [id number] TAKE 1 [facility] 15 mg 2-23 TABLET BY [facility] tablet 00:00: [facility] DAY [facility] Yes [id number] TAKE 1 [facility] 15 mg 2-23 TABLET BY [facility] of tablet 00:00: [facility] DAY [facility] Yes [id number] TAKE 1 [facility] 15 mg 2-23 TABLET BY [facility] of tablet 00:00: [facility] DAY [facility] Yes [id number] TAKE 1 [facility] 15 mg 2-23 TABLET BY [facility] of tablet 00:00: [facility] DAY Medical Branch [facility] 2021-09 Yes [id number] TAKE 1 [facility] 15 mg 2-23 TABLET BY [facility]y of tablet 00:00: MOUTH [place] DAY Medical [facility] 2021-09 Yes [id number] TAKE 1 [facility] 15 mg 2-23 TABLET BY ity of tablet 00:00: MOUTH [place] Medical Branch [facility] 2021-09 Yes [id number] TAKE 1 [facility] E 15 mg 2-23 TABLET BY ity of tablet 00:00: [facility] DAY Medical Branch [facility] 2021-09 Yes [id number] TAKE 1 [facility] 15 mg 2-23 TABLET BY ity of tablet 00:00: [facility] DAY Medical [facility] 2021-09 Yes [id number] TAKE 1 [facility] 15 mg 2-23 TABLET BY ity of tablet 00:00: [facility] Branch [facility] 2021-09 Yes [id number] TAKE 1 [facility] E 15 mg 2-23 TABLET BY ity of tablet 00:00: [facility] Branch [facility] 2021-09 Yes [id number] TAKE 1 [facility] 15 mg 2-23 TABLET BY ity of tablet 00:00: [facility] DAY Medical [facility] 2021-09 Yes [id number] TAKE 1 [facility] 15 mg 2-23 TABLET BY [facility]y of tablet 00:00: [facility] Branch [facility] 2021-09 Yes [id number] TAKE 1 [facility] 15 mg 2-23 TABLET BY ity of tablet 00:00: [facility] DAY Medical Branch [facility] 2021-09 Yes [id number] TAKE 1 [facility] 15 mg 2-23 TABLET BY ity of tablet 00:00: [facility] 00 DAY Medical Branch [facility] 2021-09 Yes [id number] TAKE 1 [facility] 15 mg 2-23 TABLET BY ity of tablet 00:00: [facility] DAY Medical Branch [facility] 2021-09 Yes [id number] TAKE 1 [facility] E 15 mg 2-23 TABLET BY ity of tablet 00:00: [facility] DAY Medical Branch [facility] 2021-09 Yes [id number] TAKE 1 [facility] 15 mg 2-23 TABLET BY ity of tablet 00:00: MOUTH [place] 00 DAY [facility] Yes [id number] TAKE 1 [facility] 15 mg 2-23 TABLET BY ity of tablet 00:00: [facility] DAY [facility]09 Yes [id number] TAKE 1 [facility] 15 mg 2-23 TABLET BY ity of tablet 00:00: [facility] DAY [facility] Branch [facility] 2021-09 Yes [id number] TAKE 1 [facility] 15 mg 2-23 TABLET BY [facility] of tablet 00:00: MOUTH [place] DAY [facility] 2021-09 Yes [id number] TAKE 1 [facility] 15 mg 2-23 TABLET BY [facility]y of tablet 00:00: [facility] DAY [facility] Branch [facility] 2021-09 Yes [id number] TAKE 1 [facility] 15 mg 2-23 TABLET BY [facility] of tablet 00:00: [facility] Branch [facility] 2021-09 Yes [id number] TAKE 1 [facility] 15 mg 2-23 TABLET BY [facility]y of tablet 00:00: [facility] DAY [facility] Branch [facility] 2021-09 Yes [id number] TAKE 1 [facility] 15 mg 2-23 TABLET BY [facility]y of tablet 00:00: [facility] DAY Medical Branch [facility] 2021-09 Yes [id number] TAKE 1 [facility] 15 mg 2-23 TABLET BY [facility]y of tablet 00:00: [facility] DAY Medical Branch [facility] 2021-09 Yes [id number] TAKE 1 [facility] 15 mg 2-23 TABLET BY [facility]y of tablet 00:00: [facility] DAY [facility] Yes [id number] TAKE 1 [facility] 15 mg 2-23 TABLET BY ity of tablet 00:00: [facility] DAY [facility] Yes [id number] TAKE 1 [facility] 15 mg 2-23 TABLET BY [facility]y of tablet 00:00: [facility] DAY [facility] Branch [facility] Yes [id number] TAKE 1 [facility] 15 mg 2-23 TABLET BY ity of tablet 00:00: [facility] DAY Medical Branch [facility] 2021-09 Yes [id number] TAKE 1 [facility] 15 mg 2-23 TABLET BY ity of tablet 00:00: MOUTH [place] 00 DAY Medical [facility] 2021-09 Yes [id number] TAKE 1 [facility] 15 mg 2-23 TABLET BY ity of tablet 00:00: MOUTH [place] DAY Medical Branch [facility] 2021-09 Yes [id number] TAKE 1 [facility] 15 mg 2-23 TABLET BY ity of tablet 00:00: MOUTH [place] DAY Medical [facility] 2021-09 Yes [id number] TAKE 1 [facility] E 15 mg 2-23 TABLET BY ity of tablet 00:00: MOUTH [place] DAY Medical [facility] 2021-09 Yes [id number] TAKE 1 [facility] 15 mg 2-23 TABLET BY ity of tablet 00:00: MOUTH [place] 00 DAY Medical Branch [facility] 2021-09 Yes [id number] TAKE 1 [facility] 15 mg 2-23 TABLET BY ity of tablet 00:00: [facility] 00 DAY Medical [facility] 2021-09 Yes [id number] TAKE 1 [facility] E 15 mg 2-23 TABLET BY ity of tablet 00:00: [facility] 00 DAY Medical [facility] 2021-09 Yes [id number] TAKE 1 [facility] E 15 mg 2-23 TABLET BY ity of tablet 00:00: [facility] 00 DAY Medical [facility] 2021-09 Yes [id number] TAKE 1 [facility] 15 mg 2-23 TABLET BY ity of tablet 00:00: [facility] DAY Medical [facility] 2021-09 Yes [id number] TAKE 1 [facility] E 15 mg 2-23 TABLET BY ity of tablet 00:00: MOUTH [place] 00 DAY Medical Branch [facility] 2021-09 Yes [id number] TAKE 1 [facility] E 15 mg 2-23 TABLET BY ity of tablet 00:00: [facility] 00 DAY Medical Branch [facility] 2021-09- No [id number] TAKE 1 [facility] E 15 mg 2-23 06-15 TABLET BY ity of tablet 00:00: 00:00 MOUTH [place] 00 :00 EVERY DAY Medical Branch LORazepam 2021-09- No [id number] 1mg 1 mg, U nivers (ATIVAN) 2-20 12-20 Oral, ity of tablet 1 mg 14:30: 14:29 [place] On [facility] 09/11/22 at 0830, Routine traZODone 2021-09 Yes [id number] 100mg Take 2 U nivers 50 mg 2-05 tablets by ity of tablet 00:00: mouth at [place] [address] bedtime. Medical Branch traZODone 2021-09 Yes [id number] 100mg Take 2 U nivers 50 mg 2-05 tablets by ity of tablet 00:00: mouth at [place] [address] bedtime. Medical Branch traZODone 2021-09 Yes [id number] 100mg Take 2 U nivers 50 mg 2-05 tablets by ity of tablet 00:00: mouth at [place] [address] bedtime. Medical Branch traZODone 2021-09 Yes [id number] 100mg Take 2 U nivers 50 mg 2-05 tablets by ity of tablet 00:00: mouth at [place] [address] bedtime. Medical Branch traZODone 2021-09 Yes [id number] 100mg Take 2 U nivers 50 mg 2-05 tablets by ity of tablet 00:00: mouth at [place] [address] bedtime. Medical Branch traZODone 2021-09 Yes [id number] 100mg Take 2 U nivers 50 mg 2-05 tablets by ity of tablet 00:00: mouth at [place] [address] [facility] Branch traZODone 2021-09 Yes [id number] 100mg Take 2 U nivers 50 mg 2-05 tablets by ity of tablet 00:00: mouth at [place] [address] bedtime. Medical Branch traZODone 2021-09 Yes [id number] 100mg Take 2 U nivers 50 mg 2-05 tablets by ity of tablet 00:00: mouth at [place] [address] bedtime. Medical Branch traZODone 2021-09 Yes [id number] 100mg Take 2 U nivers 50 mg 2-05 tablets by ity of tablet 00:00: mouth at [place] [address] bedtime. Medical Branch traZODone 2021-09 Yes [id number] 100mg Take 2 U nivers 50 mg 2-05 tablets by ity of tablet 00:00: mouth at [place] [address] [facility] Branch traZODone 2022-1 Yes [id number] 100mg Take 2 U nivers 50 mg 2-05 tablets by ity of tablet 00:00: mouth at [place] [address] bedtime. Medical Branch traZODone 2021- Yes [id number] 100mg Take 2 U nivers 50 mg 2-05 tablets by ity of tablet 00:00: mouth at [place] [address] bedtime. Medical Branch traZODone 2021- Yes [id number] 100mg Take 2 U nivers 50 mg 2-05 tablets by ity of tablet 00:00: mouth at [place] [address] bedtime. Medical Branch traZODone 2021- Yes [id number] 100mg Take 2 U nivers 50 mg 2-05 tablets by ity of tablet 00:00: mouth at [place] [address] bedtime. Medical Branch traZODone 2021-09 Yes [id number] 100mg Take 2 U nivers 50 mg 2-05 tablets by ity of tablet 00:00: mouth at [place] [address] bedtime. Medical Branch traZODone 2021-09 Yes [id number] 100mg Take 2 U nivers 50 mg 2-05 tablets by ity of tablet 00:00: mouth at [place] [address] bedtime. Medical Branch traZODone 2021-09 Yes [id number] 100mg Take 2 U nivers 50 mg 2-05 tablets by ity of tablet 00:00: mouth at [place] [address] bedtime. Medical Branch traZODone 2021-09 Yes [id number] 100mg Take 2 U nivers 50 mg 2-05 tablets by ity of tablet 00:00: mouth at [place] [address] bedtime. Medical Branch traZODone 2021-09 Yes [id number] 100mg Take 2 U nivers 50 mg 2-05 tablets by ity of tablet 00:00: mouth at [place] [address] bedtime. Medical Branch traZODone 2021-09 Yes [id number] 100mg Take 2 U nivers 50 mg 2-05 tablets by ity of tablet 00:00: mouth at [place] [address] bedtime. Medical Branch traZODone 2021-09 Yes [id number] 100mg Take 2 U nivers 50 mg 2-05 tablets by ity of tablet 00:00: mouth at [place] [address] bedtime. Medical Branch traZODone 2021- Yes [id number] 100mg Take 2 [facility] nivers 50 mg 2-05 tablets by ity of tablet 00:00: mouth at [place] [address] bedtime. Medical Branch traZODone 2021-09 Yes [id number] 100mg Take 2 U nivers 50 mg 2-05 tablets by ity of tablet 00:00: mouth at [place] [address] bedtime. Medical Branch traZODone 2021-09 Yes [id number] 100mg Take 2 U nivers 50 mg 2-05 tablets by ity of tablet 00:00: mouth at [place] [address] bedtime. Medical Branch traZODone 2021-09 Yes [id number] 100mg Take 2 U nivers 50 mg 2-05 tablets by ity of tablet 00:00: mouth at [place] [address] bedtime. Medical Branch traZODone 2021-09 Yes [id number] 100mg Take 2 U nivers 50 mg 2-05 tablets by ity of tablet 00:00: mouth at [place] [address] bedtime. Medical Branch traZODone 2021-09 Yes [id number] 100mg Take 2 U nivers 50 mg 2-05 tablets by ity of tablet 00:00: mouth at [place] [address] bedtime. Medical Branch traZODone 2021-09 Yes [id number] 100mg Take 2 U nivers 50 mg 2-05 tablets by ity of tablet 00:00: mouth at [place] [address] bedtime. Medical Branch traZODone 2021-09 Yes [id number] 100mg Take 2 U nivers 50 mg 2-05 tablets by [facility]y of tablet 00:00: mouth at [place] [address] bedtime. Medical Branch traZODone 2021-09 Yes [id number] 100mg Take 2 U nivers 50 mg 2-05 tablets by ity of tablet 00:00: mouth at [place] [address] bedtime. Medical Branch traZODone 2021-09 Yes [id number] 100mg Take 2 U nivers 50 mg 2-05 tablets by ity of tablet 00:00: mouth at [place] [address] bedtime. Medical Branch traZODone 2021-09 Yes [id number] 100mg Take 2 [facility]ivers 50 mg 2-05 tablets by [facility]y of tablet 00:00: mouth at [place] [address] bedtime. Medical Branch traZODone 2021-09 Yes [id number] 100mg Take 2 [facility] nivers 50 mg 2-05 tablets by ity of tablet 00:00: mouth at [place] [address] bedtime. Medical Branch traZODone 2021-09 Yes [id number] 100mg Take 2 [facility] nivers 50 mg 2-05 tablets by ity of tablet 00:00: mouth at [place] [address] bedtime. Medical Branch traZODone 2021-09 Yes [id number] 100mg Take 2 [facility] nivers 50 mg 2-05 tablets by ity of tablet 00:00: mouth at [place] [address] bedtime. Medical Branch traZODone 2021-09 Yes [id number] 100mg Take 2 U nivers 50 mg 2-05 tablets by ity of tablet 00:00: mouth at [place] [address] bedtime. Medical Branch traZODone 2021-09 Yes [id number] 100mg Take 2 U nivers 50 mg 2-05 tablets by ity of tablet 00:00: mouth at [place] [address] bedtime. Medical Branch traZODone 2021-09 Yes [id number] 100mg Take 2 U nivers 50 mg 2-05 tablets by ity of tablet 00:00: mouth at [place] [address] bedtime. Medical Branch traZODone 2021-09 Yes [id number] 100mg Take 2 U nivers 50 mg 2-05 tablets by ity of tablet 00:00: mouth at [place] [address] bedtime. Medical Branch traZODone 2021-09 Yes [id number] 100mg Take 2 U nivers 50 mg 2-05 tablets by ity of tablet 00:00: mouth at [place] [address] bedtime. Medical Branch traZODone 2021-09 Yes [id number] 100mg Take 2 U nivers 50 mg 2-05 tablets by ity of tablet 00:00: mouth at [place] [address] bedtime. Medical Branch traZODone 2021-09 Yes [id number] 100mg Take 2 U nivers 50 mg 2-05 tablets by ity of tablet 00:00: mouth at [place] [address] bedtime. Medical Branch traZODone 2021-09 Yes [id number] 100mg Take 2 U nivers 50 mg 2-05 tablets by ity of tablet 00:00: mouth at [place] [address] bedtime. Medical Branch traZODone 2021-09 Yes [id number] 100mg Take 2 [facility] nivers 50 mg 2-05 tablets by ity of tablet 00:00: mouth at [place] [address] bedtime. Medical Branch traZODone 2021-09 Yes [id number] 100mg Take 2 U nivers 50 mg 2-05 tablets by ity of tablet 00:00: mouth at [place] [address] bedtime. Medical Branch traZODone 2021-09 Yes [id number] 100mg Take 2 U nivers 50 mg 2-05 tablets by ity of tablet 00:00: mouth at [place] [address] bedtime. Medical Branch traZODone 2021-09 Yes [id number] 100mg Take 2 U nivers 50 mg 2-05 tablets by ity of tablet 00:00: mouth at [place] [address] bedtime. Medical Branch traZODone 2021-09 Yes [id number] 100mg Take 2 U nivers 50 mg 2-05 tablets by ity of tablet 00:00: mouth at [place] [address] bedtime. Medical Branch traZODone 2021-09 Yes [id number] 100mg Take 2 U nivers 50 mg 2-05 tablets by ity of tablet 00:00: mouth at [place] [address] bedtime. Medical Branch traZODone 2021-09 Yes [id number] 100mg Take 2 [facility] nivers 50 mg 2-05 tablets by ity of tablet 00:00: mouth at [place] [address] bedtime. Medical Branch traZODone 2021-09 Yes [id number] 100mg Take 2 U nivers 50 mg 2-05 tablets by ity of tablet 00:00: mouth at [place] [address] bedtime. Medical Branch traZODone 2021-09 Yes [id number] 100mg Take 2 U nivers 50 mg 2-05 tablets by ity of tablet 00:00: mouth at [place] [address] bedtime. Medical Branch traZODone 2021-09 Yes [id number] 100mg Take 2 U nivers 50 mg 2-05 tablets by ity of tablet 00:00: mouth at [place] [address] bedtime. Medical Branch traZODone 2021-09 Yes [id number] 100mg Take 2 U nivers 50 mg 2-05 tablets by ity of tablet 00:00: mouth at [place] [address] bedtime. Medical Branch traZODone 2021-09 Yes [id number] 100mg Take 2 U nivers 50 mg 2-05 tablets by ity of tablet 00:00: mouth at [place] [address] bedtime. Medical Branch traZODone 2021-09 Yes [id number] 100mg Take 2 [facility] nivers 50 mg 2-05 tablets by ity of tablet 00:00: mouth at [place] [address] bedtime. Medical Branch traZODone 2021-09 Yes [id number] 100mg Take 2 U nivers 50 mg 2-05 tablets by ity of tablet 00:00: mouth at [place] [address] bedtime. Medical Branch traZODone 2021-09 Yes [id number] 100mg Take 2 U nivers 50 mg 2-05 tablets by ity of tablet 00:00: mouth at [place] [address] bedtime. Medical Branch traZODone 2021-09 Yes [id number] 100mg Take 2 U nivers 50 mg 2-05 tablets by ity of tablet 00:00: mouth at [place] [address] bedtime. Medical Branch traZODone 2021-09 Yes [id number] 100mg Take 2 U nivers 50 mg 2-05 tablets by ity of tablet 00:00: mouth at [place] [address] bedtime. Medical Branch traZODone 2021-09 Yes [id number] 100mg Take 2 U nivers 50 mg 2-05 tablets by ity of tablet 00:00: mouth at [place] [address] bedtime. Medical Branch traZODone 2021-09 Yes [id number] 100mg Take 2 U nivers 50 mg 2-05 tablets by ity of tablet 00:00: mouth at [place] [address] bedtime. Medical Branch traZODone 2021-09 Yes [id number] 100mg Take 2 U nivers 50 mg 2-05 tablets by ity of tablet 00:00: mouth at [place] [address] bedtime. Medical Branch traZODone 2021-09 Yes [id number] 100mg Take 2 U nivers 50 mg 2-05 tablets by ity of tablet 00:00: mouth at [place] [address] bedtime. Medical Branch traZODone 2021-09 Yes [id number] 100mg Take 2 U nivers 50 mg 2-05 tablets by ity of tablet 00:00: mouth at [place] [address] bedtime. Medical Branch traZODone 2021-09 Yes [id number] 100mg Take 2 U nivers 50 mg 2-05 tablets by ity of tablet 00:00: mouth at [place] [address] bedtime. Medical Branch traZODone 2021-09 Yes [id number] 100mg Take 2 U nivers 50 mg 2-05 tablets by ity of tablet 00:00: mouth at [place] [address] bedtime. Medical Branch traZODone 2021-09 Yes [id number] 100mg Take 2 U nivers 50 mg 2-05 tablets by ity of tablet 00:00: mouth at [place] [address] bedtime. Medical Branch traZODone 2021-09 Yes [id number] 100mg Take 2 U nivers 50 mg 2-05 tablets by ity of tablet 00:00: mouth at [place] [address] bedtime. Medical Branch traZODone 2021-09 Yes [id number] 100mg Take 2 U nivers 50 mg 2-05 tablets by ity of tablet 00:00: mouth at [place] [address] bedtime. Medical Branch traZODone 2021-09 Yes [id number] 100mg Take 2 U nivers 50 mg 2-05 tablets by ity of tablet 00:00: mouth at [place] [address] bedtime. Medical Branch traZODone 2021-09 Yes [id number] 100mg Take 2 U nivers 50 mg 2-05 tablets by ity of tablet 00:00: mouth at [place] [address] bedtime. Medical Branch traZODone 2021-09 Yes [id number] 100mg Take 2 U nivers 50 mg 2-05 tablets by ity of tablet 00:00: mouth at [place] [address] bedtime. Medical Branch traZODone 2021-09 Yes [id number] 100mg Take 2 U nivers 50 mg 2-05 tablets by ity of tablet 00:00: mouth at [place] [address] bedtime. Medical Branch traZODone 2021-09 Yes [id number] 100mg Take 2 U nivers 50 mg 2-05 tablets by ity of tablet 00:00: mouth at [place] [address] bedtime. Medical Branch traZODone 2021-09 Yes [id number] 100mg Take 2 U nivers 50 mg 2-05 tablets by ity of tablet 00:00: mouth at [place] [address] bedtime. Medical Branch traZODone 2021-09 Yes [id number] 100mg Take 2 U nivers 50 mg 2-05 tablets by ity of tablet 00:00: mouth at [place] [address] bedtime. Medical Branch traZODone 2021-09 Yes [id number] 100mg Take 2 U nivers 50 mg 2-05 tablets by ity of tablet 00:00: mouth at [place] [address] bedtime. Medical Branch traZODone 2021-09 Yes [id number] 100mg Take 2 U nivers 50 mg 2-05 tablets by ity of tablet 00:00: mouth at [place] [address] bedtime. Medical Branch traZODone 2021-09 Yes [id number] 100mg Take 2 U nivers 50 mg 2-05 tablets by ity of tablet 00:00: mouth at [place] [address] bedtime. Medical Branch traZODone 2021-09 Yes [id number] 100mg Take 2 U nivers 50 mg 2-05 tablets by ity of tablet 00:00: mouth at [place] [address] bedtime. Medical Branch traZODone 2021-09 Yes [id number] 100mg Take 2 U nivers 50 mg 2-05 tablets by ity of tablet 00:00: mouth at [place] [address] bedtime. Medical Branch traZODone 2021-09 Yes [id number] 100mg Take 2 [facility]ivers 50 mg 2-05 tablets by ity of tablet 00:00: mouth at [place] [address] bedtime. Medical Branch traZODone 2021-09 Yes [id number] 100mg Take 2 [facility] nivers 50 mg 2-05 tablets by ity of tablet 00:00: mouth at [place] [address] bedtime. Medical Branch traZODone 2021-09 Yes [id number] 100mg Take 2 U nivers 50 mg 2-05 tablets by ity of tablet 00:00: mouth at [place] [address] bedtime. [facility] traZODone 2021-09 Yes [id number] 100mg Take 2 U nivers 50 mg 2-05 tablets by [facility] tablet 00:00: mouth at [place] [address] bedtime. [facility] traZODone 2021-09 Yes [id number] 100mg Take 2 [facility] 50 mg 2-05 tablets by [facility] tablet 00:00: mouth at [place] [address] bedtime. [facility] traZODone 2021-09 Yes [id number] 100mg Take 2 [facility] 50 mg 2-05 tablets by [facility] tablet 00:00: mouth at [place] [address] bedtime. [facility] traZODone 2021-09 Yes [id number] 100mg Take 2 [facility] 50 mg 2-05 tablets by [facility] tablet 00:00: mouth at [place] [address] bedtime. [facility] traZODone 2021-09 Yes [id number] 100mg Take 2 [facility] 50 mg 2-05 tablets by [facility] tablet 00:00: mouth at [place] [address] bedtime. [facility] traZODone 2021-09 Yes [id number] 100mg Take 2 [facility] 50 mg 2-05 tablets by [facility] tablet 00:00: mouth at [place] [address] bedtime. [facility] traZODone 2021-09 Yes [id number] 100mg Take 2 [facility] 50 mg 2-05 tablets by [facility] tablet 00:00: mouth at [place] [address] bedtime. [facility] traZODone 2021-09 Yes [id number] 100mg Take 2 [facility] 50 mg 2-05 tablets by [facility] tablet 00:00: mouth at [place] [address] bedtime. [facility] traZODone 2021-09 Yes [id number] 100mg Take 2 [facility] 50 mg 2-05 tablets by [facility] tablet 00:00: mouth at [place] [address] bedtime. [facility] traZODone 2021-09 Yes [id number] 100mg Take 2 [facility] 50 mg 2-05 tablets by [facility] tablet 00:00: mouth at [place] [address] bedtime. [facility] traZODone 2021-09 Yes [id number] 100mg Take 2 [facility] 50 mg 2-05 tablets by [facility] tablet 00:00: mouth at [place] [address] bedtime. [facility] traZODone 2021-09 Yes [id number] 100mg Take 2 [facility] 50 mg 2-05 tablets by [facility] tablet 00:00: mouth at [place] [address] bedtime. [facility] traZODone 2021-09 Yes [id number] 100mg Take 2 [facility] 50 mg 2-05 tablets by [facility] tablet 00:00: mouth at [place] [address] bedtime. [facility] traZODone 2021-09 Yes [id number] 100mg Take 2 [facility] 50 mg 2-05 tablets by [facility] tablet 00:00: mouth at [place] [address] bedtime. [facility] traZODone 2021-09 Yes [id number] 100mg Take 2 [facility] 50 mg 2-05 tablets by [facility] tablet 00:00: mouth at [place] [address] bedtime. [facility] traZODone 2021-09 Yes [id number] 100mg Take 2 [facility] 50 mg 2-05 tablets by [facility] tablet 00:00: mouth at [place] [address] bedtime. [facility] traZODone 2021-09 Yes [id number] 100mg Take 2 [facility] 50 mg 2-05 tablets by [facility] tablet 00:00: mouth at [place] [address] bedtime. [facility] traZODone 2021-09 Yes [id number] 100mg Take 2 [facility] 50 mg 2-05 tablets by [facility] of tablet 00:00: mouth at [place] [address] bedtime. [facility] traZODone 2021-09 Yes [id number] 100mg Take 2 [facility] 50 mg 2-05 tablets by [facility] tablet 00:00: mouth at [place] [address] bedtime. [facility] traZODone 2021-09 Yes [id number] 100mg Take 2 [facility] 50 mg 2-05 tablets by [facility] tablet 00:00: mouth at [place] [address] bedtime. [facility] traZODone 2021-09 Yes [id number] 100mg Take 2 [facility] 50 mg 2-05 tablets by [facility] tablet 00:00: mouth at [place] [address] bedtime. [facility] traZODone 2021-09 Yes [id number] 100mg Take 2 [facility] 50 mg 2-05 tablets by [facility] of tablet 00:00: mouth at [place] [address] bedtime. [facility] traZODone 2021-09 Yes [id number] 100mg Take 2 [facility] 50 mg 2-05 tablets by [facility] of tablet 00:00: mouth at [place] [address] bedtime. [facility] traZODone 2021-09 Yes [id number] 100mg Take 2 [facility] 50 mg 2-05 tablets by [facility] of tablet 00:00: mouth at [place] [address] bedtime. [facility] traZODone 2021-09 Yes [id number] 100mg Take 2 [facility] 50 mg 2-05 tablets by [facility] of tablet 00:00: mouth at [place] [address] bedtime. [facility] traZODone 2021-09 Yes [id number] 100mg Take 2 [facility] 50 mg 2-05 tablets by [facility] of tablet 00:00: mouth at [place] [address] bedtime. [facility] traZODone 2021-09 Yes [id number] 100mg Take 2 [facility] 50 mg 2-05 tablets by [facility] of tablet 00:00: mouth at [place] [address] bedtime. [facility] traZODone 2021-09 Yes [id number] 100mg Take 2 [facility] 50 mg 2-05 tablets by [facility] tablet 00:00: mouth at [place] [address] bedtime. [facility] traZODone 2021-09 Yes [id number] 100mg Take 2 [facility]ivers 50 mg 2-05 tablets by [facility] of tablet 00:00: mouth at [place] [address] bedtime. [facility] traZODone 2021-09 Yes [id number] 100mg Take 2 [facility] 50 mg 2-05 tablets by [facility] of tablet 00:00: mouth at [place] [address] bedtime. [facility] traZODone 2021- Yes [id number] 100mg Take 2 [facility] 50 mg 2-05 tablets by [facility] tablet 00:00: mouth at [place] [address] bedtime. [facility] traZODone 2021- Yes [id number] 100mg Take 2 [facility] 50 mg 2-05 tablets by [facility] tablet 00:00: mouth at [place] [address] bedtime. [facility] traZODone 2021- Yes [id number] 100mg Take 2 [facility] 50 mg 2-05 tablets by [facility] tablet 00:00: mouth at [place] [address] bedtime. [facility] ezetimibe 2- Yes [id number] 10mg TAKE 1 U nivers 10 mg 1-14 TABLET BY [facility] of tablet 00:00: [facility] DAILY [facility] ezetimibe 2021- Yes [id number] 10mg TAKE 1 U nivers 10 mg 1-14 TABLET BY ity of tablet 00:00: [facility] DAILY [facility] ezetimibe 2021-1 Yes [id number] 10mg TAKE 1 U nivers 10 mg 1-14 TABLET BY [facility]y of tablet 00:00: [facility] DAILY [facility] ezetimibe 2021-1 Yes [id number] 10mg TAKE 1 U nivers 10 mg 1-14 TABLET BY ity of tablet 00:00: [facility] DAILY [facility] ezetimibe 2-1 Yes [id number] 10mg TAKE 1 U nivers 10 mg 1-14 TABLET BY [facility]y of tablet 00:00: [facility] DAILY [facility] ezetimibe 2-1 Yes [id number] 10mg TAKE 1 U nivers 10 mg 1-14 TABLET BY ity of tablet 00:00: [facility] DAILY [facility] ezetimibe 2-1 Yes [id number] 10mg TAKE 1 U nivers 10 mg 1-14 TABLET BY [facility]y of tablet 00:00: [facility] DAILY [facility] ezetimibe 2-1 Yes [id number] 10mg TAKE 1 U nivers 10 mg 1-14 TABLET BY ity of tablet 00:00: [facility] DAILY [facility] ezetimibe 2-1 Yes [id number] 10mg TAKE 1 U nivers 10 mg 1-14 TABLET BY ity of tablet 00:00: [facility] DAILY [facility] ezetimibe 2021-09 Yes [id number] 10mg TAKE 1 U nivers 10 mg 1-14 TABLET BY ity of tablet 00:00: [facility] DAILY [facility] ezetimibe 2021- Yes [id number] 10mg TAKE 1 U nivers 10 mg 1-14 TABLET BY [facility]y of tablet 00:00: [facility] DAILY [facility] ezetimibe 2021-09 Yes [id number] 10mg TAKE 1 U nivers 10 mg 1-14 TABLET BY [facility]y of tablet 00:00: [facility] DAILY [facility] ezetimibe 2021- Yes [id number] 10mg TAKE 1 U nivers 10 mg 1-14 TABLET BY ity of tablet 00:00: [facility] DAILY [facility] ezetimibe 2021-09 Yes [id number] 10mg TAKE 1 U nivers 10 mg 1-14 TABLET BY ity of tablet 00:00: [facility] DAILY [facility] ezetimibe 2021-09 Yes [id number] 10mg TAKE 1 U nivers 10 mg 1-14 TABLET BY ity of tablet 00:00: [facility] DAILY [facility] ezetimibe 2021-09 Yes [id number] 10mg TAKE 1 U nivers 10 mg 1-14 TABLET BY ity of tablet 00:00: [facility] DAILY [facility] ezetimibe 2021-09 Yes [id number] 10mg TAKE 1 U nivers 10 mg 1-14 TABLET BY ity of tablet 00:00: [facility] DAILY [facility] ezetimibe 2021-09 Yes [id number] 10mg TAKE 1 U nivers 10 mg 1-14 TABLET BY ity of tablet 00:00: [facility] DAILY [facility] ezetimibe 2021- Yes [id number] 10mg TAKE 1 U nivers 10 mg 1-14 TABLET BY ity of tablet 00:00: [facility] DAILY [facility] ezetimibe 2021- Yes [id number] 10mg TAKE 1 U nivers 10 mg 1-14 TABLET BY ity of tablet 00:00: [facility] DAILY [facility] ezetimibe 2021-09 Yes [id number] 10mg TAKE 1 U nivers 10 mg 1-14 TABLET BY ity of tablet 00:00: [facility] DAILY [facility] ezetimibe 2021-09 Yes [id number] 10mg TAKE 1 U nivers 10 mg 1-14 TABLET BY ity of tablet 00:00: [facility] DAILY [facility] ezetimibe 2021- Yes [id number] 10mg TAKE 1 U nivers 10 mg 1-14 TABLET BY ity of tablet 00:00: [facility] DAILY [facility] ezetimibe 2021- Yes [id number] 10mg TAKE 1 U nivers 10 mg 1-14 TABLET BY [facility]y of tablet 00:00: [facility] DAILY [facility] ezetimibe 2021- Yes [id number] 10mg TAKE 1 U nivers 10 mg 1-14 TABLET BY ity of tablet 00:00: [facility] DAILY [facility] ezetimibe 2021- Yes [id number] 10mg TAKE 1 U nivers 10 mg 1-14 TABLET BY ity of tablet 00:00: [facility] DAILY [facility] ezetimibe 2021- Yes [id number] 10mg TAKE 1 U nivers 10 mg 1-14 TABLET BY ity of tablet 00:00: [facility] DAILY [facility] ezetimibe 2021- Yes [id number] 10mg TAKE 1 U nivers 10 mg 1-14 TABLET BY ity of tablet 00:00: [facility] DAILY [facility] ezetimibe 2021- Yes [id number] 10mg TAKE 1 U nivers 10 mg 1-14 TABLET BY ity of tablet 00:00: [facility] DAILY [facility] ezetimibe 2021- Yes [id number] 10mg TAKE 1 U nivers 10 mg 1-14 TABLET BY ity of tablet 00:00: [facility] DAILY [facility] ezetimibe 2021- Yes [id number] 10mg TAKE 1 U nivers 10 mg 1-14 TABLET BY [facility]y of tablet 00:00: [facility] DAILY [facility] ezetimibe 2021- Yes [id number] 10mg TAKE 1 U nivers 10 mg 1-14 TABLET BY ity of tablet 00:00: [facility] DAILY [facility] ezetimibe 2021- Yes [id number] 10mg TAKE 1 U nivers 10 mg 1-14 TABLET BY ity of tablet 00:00: [facility] DAILY [facility] ezetimibe 2021- Yes [id number] 10mg TAKE 1 U nivers 10 mg 1-14 TABLET BY [facility]y of tablet 00:00: [facility] DAILY [facility] ezetimibe 2021-09 Yes [id number] 10mg TAKE 1 U [facility]ivers 10 mg 1-14 TABLET BY ity of tablet 00:00: [facility] DAILY [facility] ezetimibe 2021-09 Yes [id number] 10mg TAKE 1 U nivers 10 mg 1-14 TABLET BY ity of tablet 00:00: [facility] DAILY [facility] ezetimibe 2021-09 Yes [id number] 10mg TAKE 1 U nivers 10 mg 1-14 TABLET BY [facility]y of tablet 00:00: [facility] DAILY [facility] ezetimibe 2021-09 Yes [id number] 10mg TAKE 1 U nivers 10 mg 1-14 TABLET BY [facility]y of tablet 00:00: [facility] DAILY [facility] ezetimibe 2021-09 Yes [id number] 10mg TAKE 1 U nivers 10 mg 1-14 TABLET BY ity of tablet 00:00: [facility] DAILY [facility] ezetimibe 2021-09 Yes [id number] 10mg TAKE 1 [facility] nivers 10 mg 1-14 TABLET BY ity of tablet 00:00: [facility] DAILY [facility] ezetimibe 2021-09 Yes [id number] 10mg TAKE 1 U [facility]ivers 10 mg 1-14 TABLET BY ity of tablet 00:00: [facility] DAILY [facility] ezetimibe 2021-09 Yes [id number] 10mg TAKE 1 U nivers 10 mg 1-14 TABLET BY ity of tablet 00:00: [facility] DAILY [facility] ezetimibe 2021-09 Yes [id number] 10mg TAKE 1 U nivers 10 mg 1-14 TABLET BY ity of tablet 00:00: [facility] DAILY [facility] ezetimibe 2021-09 Yes [id number] 10mg TAKE 1 U nivers 10 mg 1-14 TABLET BY ity of tablet 00:00: [facility] DAILY [facility] ezetimibe 2021-09 Yes [id number] 10mg TAKE 1 U nivers 10 mg 1-14 TABLET BY ity of tablet 00:00: [facility] DAILY [facility] ezetimibe 2021-09 Yes [id number] 10mg TAKE 1 U nivers 10 mg 1-14 TABLET BY ity of tablet 00:00: [facility] DAILY [facility] ezetimibe 2021- Yes [id number] 10mg TAKE 1 U nivers 10 mg 1-14 TABLET BY ity of tablet 00:00: [facility] DAILY [facility] ezetimibe 2021- Yes [id number] 10mg TAKE 1 U nivers 10 mg 1-14 TABLET BY ity of tablet 00:00: [facility] DAILY [facility] ezetimibe 2021- Yes [id number] 10mg TAKE 1 U nivers 10 mg 1-14 TABLET BY ity of tablet 00:00: [facility] DAILY [facility] ezetimibe 2021- Yes [id number] 10mg TAKE 1 U nivers 10 mg 1-14 TABLET BY ity of tablet 00:00: [facility] DAILY [facility] ezetimibe 2021- Yes [id number] 10mg TAKE 1 U nivers 10 mg 1-14 TABLET BY ity of tablet 00:00: [facility] DAILY [facility] ezetimibe 2021- Yes [id number] 10mg TAKE 1 U nivers 10 mg 1-14 TABLET BY [facility]y of tablet 00:00: [facility] DAILY [facility] ezetimibe 2021- Yes [id number] 10mg TAKE 1 U nivers 10 mg 1-14 TABLET BY ity of tablet 00:00: [facility] DAILY [facility] ezetimibe 2021- Yes [id number] 10mg TAKE 1 U nivers 10 mg 1-14 TABLET BY [facility]y of tablet 00:00: [facility] DAILY [facility] ezetimibe 2021- Yes [id number] 10mg TAKE 1 U nivers 10 mg 1-14 TABLET BY [facility]y of tablet 00:00: [facility] DAILY [facility] ezetimibe 2021- Yes [id number] 10mg TAKE 1 U nivers 10 mg 1-14 TABLET BY ity of tablet 00:00: [facility] DAILY [facility] ezetimibe 2021- Yes [id number] 10mg TAKE 1 U nivers 10 mg 1-14 TABLET BY ity of tablet 00:00: [facility] DAILY [facility] ezetimibe 2021- Yes [id number] 10mg TAKE 1 U nivers 10 mg 1-14 TABLET BY ity of tablet 00:00: [facility] DAILY [facility] ezetimibe 2021- Yes [id number] 10mg TAKE 1 U nivers 10 mg 1-14 TABLET BY ity of tablet 00:00: [facility] DAILY [facility] ezetimibe 2021- Yes [id number] 10mg TAKE 1 U nivers 10 mg 1-14 TABLET BY ity of tablet 00:00: [facility] DAILY [facility] ezetimibe 2021- Yes [id number] 10mg TAKE 1 U nivers 10 mg 1-14 TABLET BY ity of tablet 00:00: [facility] DAILY [facility] ezetimibe 2021- Yes [id number] 10mg TAKE 1 [facility]ivers 10 mg 1-14 TABLET BY ity of tablet 00:00: [facility] DAILY [facility] ezetimibe 2021- Yes [id number] 10mg TAKE 1 U nivers 10 mg 1-14 TABLET BY ity of tablet 00:00: [facility] DAILY [facility] ezetimibe 2021- Yes [id number] 10mg TAKE 1 U nivers 10 mg 1-14 TABLET BY ity of tablet 00:00: [facility] DAILY [facility] ezetimibe 2021- Yes [id number] 10mg TAKE 1 U nivers 10 mg 1-14 TABLET BY ity of tablet 00:00: [facility] DAILY [facility] ezetimibe 2021- Yes [id number] 10mg TAKE 1 [facility]ivers 10 mg 1-14 TABLET BY ity of tablet 00:00: [facility] DAILY [facility] ezetimibe 2021- Yes [id number] 10mg TAKE 1 U nivers 10 mg 1-14 TABLET BY ity of tablet 00:00: [facility] DAILY [facility] ezetimibe 2021- Yes [id number] 10mg TAKE 1 U nivers 10 mg 1-14 TABLET BY ity of tablet 00:00: [facility] DAILY [facility] ezetimibe 2- Yes [id number] 10mg TAKE 1 U nivers 10 mg 1-14 TABLET BY ity of tablet 00:00: [facility] DAILY [facility] ezetimibe 2- Yes [id number] 10mg TAKE 1 U [facility]ivers 10 mg 1-14 TABLET BY ity of tablet 00:00: [facility] DAILY [facility] ezetimibe 2021- Yes [id number] 10mg TAKE 1 U nivers 10 mg 1-14 TABLET BY ity of tablet 00:00: [facility] DAILY [facility] ezetimibe 2021- Yes [id number] 10mg TAKE 1 U nivers 10 mg 1-14 TABLET BY ity of tablet 00:00: [facility] DAILY [facility] ezetimibe 2021- Yes [id number] 10mg TAKE 1 U nivers 10 mg 1-14 TABLET BY ity of tablet 00:00: [facility] DAILY [facility] ezetimibe 2021- Yes [id number] 10mg TAKE 1 U nivers 10 mg 1-14 TABLET BY ity of tablet 00:00: [facility] DAILY [facility] ezetimibe 2021-09 Yes [id number] 10mg TAKE 1 U [facility]ivers 10 mg 1-14 TABLET BY ity of tablet 00:00: [facility] DAILY [facility] ezetimibe 2021-09 Yes [id number] 10mg TAKE 1 U [facility] 10 mg 1-14 TABLET BY ity of tablet 00:00: [facility] DAILY [facility] ezetimibe 2021-09 Yes [id number] 10mg TAKE 1 [facility]ivers 10 mg 1-14 TABLET BY ity of tablet 00:00: [facility] DAILY [facility] ezetimibe 2021-09 Yes [id number] 10mg TAKE 1 [facility]ivers 10 mg 1-14 TABLET BY [facility]y of tablet 00:00: [facility] DAILY [facility] ezetimibe 2021- Yes [id number] 10mg TAKE 1 U [facility]ivers 10 mg 1-14 TABLET BY ity of tablet 00:00: [facility] DAILY [facility] ezetimibe 2021- Yes [id number] 10mg TAKE 1 [facility]ivers 10 mg 1-14 TABLET BY ity of tablet 00:00: [facility] DAILY [facility] ezetimibe 2021- Yes [id number] 10mg TAKE 1 [facility]ivers 10 mg 1-14 TABLET BY ity of tablet 00:00: [facility] DAILY [facility] ezetimibe 2021- Yes [id number] 10mg TAKE 1 [facility]ivers 10 mg 1-14 TABLET BY ity of tablet 00:00: [facility] DAILY [facility] ezetimibe 2021-09 Yes [id number] 10mg TAKE 1 [facility]ivers 10 mg 1-14 TABLET BY ity of tablet 00:00: [facility] DAILY [facility] ezetimibe 2021-1 Yes [id number] 10mg TAKE 1 U nivers 10 mg 1-14 TABLET BY ity of tablet 00:00: [facility] DAILY [facility] ezetimibe 2021- Yes [id number] 10mg TAKE 1 U nivers 10 mg 1-14 TABLET BY ity of tablet 00:00: [facility] DAILY [facility] ezetimibe 2021- Yes [id number] 10mg TAKE 1 U nivers 10 mg 1-14 TABLET BY ity of tablet 00:00: [facility] DAILY [facility] ezetimibe 2021- Yes [id number] 10mg TAKE 1 [facility]ivers 10 mg 1-14 TABLET BY ity of tablet 00:00: [facility] DAILY [facility] ezetimibe 2021- Yes [id number] 10mg TAKE 1 U [facility] 10 mg 1-14 TABLET BY ity of tablet 00:00: [facility] DAILY [facility] ezetimibe 2021- Yes [id number] 10mg TAKE 1 U [facility]ivers 10 mg 1-14 TABLET BY ity of tablet 00:00: [facility] DAILY [facility] ezetimibe 2021- Yes [id number] 10mg TAKE 1 U [facility]ivers 10 mg 1-14 TABLET BY ity of tablet 00:00: [facility] DAILY [facility] ezetimibe 2021- Yes [id number] 10mg TAKE 1 U [facility]ivers 10 mg 1-14 TABLET BY ity of tablet 00:00: [facility] DAILY [facility] ezetimibe 2021- Yes [id number] 10mg TAKE 1 [facility] 10 mg 1-14 TABLET BY ity of tablet 00:00: [facility] DAILY [facility] ezetimibe 2021- Yes [id number] 10mg TAKE 1 [facility] 10 mg 1-14 TABLET BY ity of tablet 00:00: [facility] DAILY [facility] ezetimibe 2021-3- No [id number] 10mg TAKE 1 [facility] 10 mg 1-14 05-22 TABLET BY ity of tablet 00:00: 00:00 [facility] 00 :00 DAILY [facility] ezetimibe 2021-093- No [id number] 10mg TAKE 1 [facility] 10 mg 10-06 TABLET BY ity of tablet 00:00: 00:00 MOUTH [place] 00 :00 DAILY [facility] Insulin 2021-09 Yes [id number] 40U inject 40 [facility] [place] 1-09 Units ity of ([place] [address] the [facility]) 100 morning unit/mL (3 and 40 mL) Units in injection the evening. Insulin 2021-09 Yes [id number] 40U inject 40 [facility] [place] 1-09 Units ity of ([place] 00:[place] [address] the [facility]) 100 morning unit/mL (3 and 40 mL) Units in injection the evening. Insulin 2021-09 Yes [id number] 40U inject 40 [facility] [place] 1-09 Units ity of ([place] 00:[place] [address] the [facility]) 100 morning unit/mL (3 and 40 mL) Units in injection the evening. Insulin 2021-09 Yes [id number] 40U inject 40 [facility] [place] 1-09 Units ity of ([place]EM[place] 00:[place] [address] the [facility]) 100 morning unit/mL (3 and 40 mL) Units in injection the evening. Insulin 2021-09 Yes [id number] 40U inject 40 [facility] [place] 1-09 Units ity of ([place] 00:[place] skin [place] [address]) 100 morning unit/mL (3 and 40 mL) Units in injection the evening. Insulin 2021-09 Yes [id number] 40U inject 40 [facility] [place] 1-09 Units ity of ([place] 00:[place] skin [place] [address]) 100 morning unit/mL (3 and 40 mL) Units in injection the evening. Insulin 2021-09 Yes [id number] 40U inject 40 [facility] [place] 1-09 Units ity of ([place] 00:[place] skin in [facility]-100 the Branch INSULN) 100 morning unit/mL (3 and 40 mL) Units in injection the evening. Insulin 2021-09 Yes [id number] 40U inject 40 [facility] [place] 1-09 Units ity of ([place] 00:[place] skin [place] [facility]-100 the Branch INSULN) 100 morning unit/mL (3 and 40 mL) Units in injection the evening. Insulin 2021-09 Yes [id number] 40U inject 40 [facility] [place] 1-09 Units ity of ([place] 00:[place] skin in [facility]-100 the Branch INSULN) 100 morning unit/mL (3 and 40 mL) Units in injection the evening. Insulin 2021-09 Yes [id number] 40U inject 40 [facility] [place] 1-09 Units ity of ([place] 00:[place] skin [place] [facility]-100 the [facility] INSULN) 100 morning unit/mL (3 and 40 mL) Units in injection the evening. Insulin 2021-09 Yes [id number] 40U inject 40 [facility] [place] 1-09 Units ity of ([place] 00:[place] skin in [facility]-100 the [facility] INSULN) 100 morning unit/mL (3 and 40 mL) Units in injection the evening. Insulin 2021-09 Yes [id number] 40U inject 40 [facility] [place] 1-09 Units ity of ([place] 00:[place] skin in [facility]-100 the [facility] INSULN) 100 morning unit/mL (3 and 40 mL) Units in injection the evening. Insulin 2021-09 Yes [id number] 40U inject 40 [facility] [place] 1-09 Units ity of ([place] 00:[place] skin in [facility]-100 the [facility] INSULN) 100 morning unit/mL (3 and 40 mL) Units in injection the evening. Insulin 2021-09 Yes [id number] 40U inject 40 [facility] [place] 1-09 Units ity of ([place] 00:[place] skin in [facility]-100 the Branch INSULN) 100 morning unit/mL (3 and 40 mL) Units in injection the evening. Insulin 2021-09 Yes [id number] 40U inject 40 [facility] [place] 1-09 Units ity of ([place] 00:00[place] skin in [facility]-100 the [facility] INSULN) 100 morning unit/mL (3 and 40 mL) Units in injection the evening. Insulin 2021-09 Yes [id number] 40U inject 40 [facility] [place] 1-09 Units ity of ([place] 00:00[place] skin in [facility]-100 the [facility] INSULN) 100 morning unit/mL (3 and 40 mL) Units in injection the evening. Insulin 2021-09 Yes [id number] 40U inject 40 [facility] [place] 1-09 Units ity of ([place] 00:[place] skin in [facility]-100 the [facility] INSULN) 100 morning unit/mL (3 and 40 mL) Units in injection the evening. Insulin 2021-09 Yes [id number] 40U inject 40 [facility] [place] 1-09 Units ity of ([place] 00:[place] skin in [facility]-100 the [facility] INSULN) 100 morning unit/mL (3 and 40 mL) Units in injection the evening. Insulin 2021-09 Yes [id number] 40U inject 40 [facility] 1-09 Units ity of ([place] 00:[place] skin in [facility]-100 the [facility] INSULN) 100 morning unit/mL (3 and 40 mL) Units in injection the evening. Insulin 2021-09 Yes [id number] 40U inject 40 [facility] 1-09 Units ity of ([place] 00:[place] skin in [facility]-100 the [facility] INSULN) 100 morning unit/mL (3 and 40 mL) Units in injection the evening. Insulin 2021-09 Yes [id number] 40U inject 40 [facility] 1-09 Units ity of ([place] 00:[place] skin in [facility]-100 the [facility] INSULN) 100 morning unit/mL (3 and 40 mL) Units in injection the evening. Insulin 2021-09 Yes [id number] 40U inject 40 [facility] 1-09 Units ity of ([place] 00:00[place] skin in [facility]-100 the [facility] INSULN) 100 morning unit/mL (3 and 40 mL) Units in injection the evening. Insulin 2021-09 Yes [id number] 40U inject 40 [facility] 1-09 Units ity of ([place] 00:00[place] skin in [facility]-100 the [facility] INSULN) 100 morning unit/mL (3 and 40 mL) Units in injection the evening. Insulin 2021-09 Yes [id number] 40U inject 40 [facility] 1-09 Units ity of ([place] 00:00[place] skin in [facility]-100 the [facility] INSULN) 100 morning unit/mL (3 and 40 mL) Units in injection the evening. Insulin 2021-09 Yes [id number] 40U inject 40 [facility] 1-09 Units ity of ([place] 00:[place] skin in [facility]-100 the [facility] INSULN) 100 morning unit/mL (3 and 40 mL) Units in injection the evening. Insulin 2021-09 Yes [id number] 40U inject 40 [facility] Units [facility] ([facility] 00:[place] skin in [facility] U-100 the Branch INSULN) 100 morning unit/mL (3 and 40 mL) Units in injection the evening. Insulin 2021-09 Yes [id number] 40U inject 40 [facility] 1-09 Units [facility] of ([facility]EM[facility] 00:00: [place] skin in [facility] U-100 the Branch INSULN) 100 morning unit/mL (3 and 40 mL) Units in injection the evening. Insulin 2021-09 Yes [id number] 40U inject 40 [facility] 1-09 Units [facility] of (LEVEMIR 00:00: [place] skin in [facility] U-100 the Branch INSULN) 100 morning unit/mL (3 and 40 mL) Units in injection the evening. Insulin 2021-09 Yes [id number] 40U inject 40 [facility] 1-09 Units [facility] of (LEVEMIR 00:00: [place] skin in [facility] U-100 the Branch INSULN) 100 morning unit/mL (3 and 40 mL) Units in injection the evening. Insulin 2021-09 Yes [id number] 40U inject 40 [facility] 1-09 Units [facility] of (LEVEMIR 00:00: [place] skin in [facility] U-100 the Branch INSULN) 100 morning unit/mL (3 and 40 mL) Units in injection the evening. Insulin 2021-09 Yes [id number] 40U inject 40 [facility] 1-09 Units [facility] of (LEVEMIR 00:00: [place] skin in [facility] U-100 the Branch INSULN) 100 morning unit/mL (3 and 40 mL) Units in injection the evening. Insulin 2021-09 Yes [id number] 40U inject 40 [facility] 1-09 Units ity of (LEVEMIR 00:00: [place] skin in [facility] U-100 the Branch INSULN) 100 morning unit/mL (3 and 40 mL) Units in injection the evening. Insulin 2021-09 Yes [id number] 40U inject 40 [facility] 1-09 Units it[facility] of (LEVEMIR 00:00: [place] skin in [facility] U-100 the Branch INSULN) 100 morning unit/mL (3 and 40 mL) Units in injection the evening. Insulin 2021-09 Yes [id number] 40U inject 40 [facility] 1-09 Units [facility] of (LEVEMIR 00:00: [place] skin in [facility] U-100 the Branch INSULN) 100 morning unit/mL (3 and 40 mL) Units in injection the evening. Insulin 2021-09 Yes [id number] 40U inject 40 [facility] 1-09 Units [facility] of (LEVEMIR 00:00: [place] skin in [facility] U-100 the Branch INSULN) 100 morning unit/mL (3 and 40 mL) Units in injection the evening. Insulin 2021-09 Yes [id number] 40U inject 40 [facility] 1-09 Units [facility] of (LEVEMIR 00:00: [place] skin in [facility] U-100 the Branch INSULN) 100 morning unit/mL (3 and 40 mL) Units in injection the evening. Insulin 2021-09 Yes [id number] 40U inject 40 [facility] 1-09 Units [facility] of (LEVEMIR 00:00: [place] skin in [facility] U-100 the Branch INSULN) 100 morning unit/mL (3 and 40 mL) Units in injection the evening. Insulin 2021-09 Yes [id number] 40U inject 40 [facility] 1-09 Units [facility] of (LEVEMIR 00:00: [place] skin in [facility] U-100 the Branch INSULN) 100 morning unit/mL (3 and 40 mL) Units in injection the evening. Insulin 2021-09 Yes [id number] 40U inject 40 [facility] 1-09 Units [facility] of (LEVEMIR 00:00: [place] skin in [facility] U-100 the Branch INSULN) 100 morning unit/mL (3 and 40 mL) Units in injection the evening. Insulin 2021-09 Yes [id number] 40U inject 40 [facility] 1-09 Units [facility] of (LEVEMIR 00:00: [place] 00 skin in [facility] U-100 the Branch INSULN) 100 morning unit/mL (3 and 40 mL) Units in injection the evening. Insulin 2021-09 Yes [id number] 40U inject 40 [facility] 1-09 Units [facility] of (LEVEMIR 00:00: [place] skin in [facility] U-100 the Branch INSULN) 100 morning unit/mL (3 and 40 mL) Units in injection the evening. Insulin 2021-09 Yes [id number] 40U inject 40 [facility] 1-09 Units it[facility] of (LEVEMIR 00:00: [place] 00 skin in [facility] U-100 the Branch INSULN) 100 morning unit/mL (3 and 40 mL) Units in injection the evening. Insulin 2021-09 Yes [id number] 40U inject 40 [facility] 1-09 Units [facility] of (LEVEMIR 00:00: [place] skin in [facility] U-100 the Branch INSULN) 100 morning unit/mL (3 and 40 mL) Units in injection the evening. Insulin 2021-09 Yes [id number] 40U inject 40 [facility] 1-09 Units [facility] of (LEVEMIR 00:00: [place] 00 skin in [facility] U-100 the Branch INSULN) 100 morning unit/mL (3 and 40 mL) Units in injection the evening. Insulin 2021-09 Yes [id number] 40U inject 40 [facility] 1-09 Units [facility] of (LEVEMIR 00:00: [place] 00 skin in [facility] U-100 the Branch INSULN) 100 morning unit/mL (3 and 40 mL) Units in injection the evening. Insulin 2021-09 Yes [id number] 40U inject 40 [facility] 1-09 Units [facility] of (LEVEMIR 00:00: [place] skin in [facility] U-100 the Branch INSULN) 100 morning unit/mL (3 and 40 mL) Units in injection the evening. Insulin 2021-09 Yes [id number] 40U inject 40 [facility] 1-09 Units [facility] of (LEVEMIR 00:00: [place] skin in [facility] U-100 the Branch INSULN) 100 morning unit/mL (3 and 40 mL) Units in injection the evening. Insulin 2021-09 Yes [id number] 40U inject 40 [facility] 1-09 Units [facility] of (LEVEMIR 00:00: [place] 00 skin in [facility] U-100 the Branch INSULN) 100 morning unit/mL (3 and 40 mL) Units in injection the evening. Insulin 2021-09 Yes [id number] 40U inject 40 [facility] 1-09 Units [facility] of (LEVEMIR 00:00: [place] 00 skin in [facility] U-100 the Branch INSULN) 100 morning unit/mL (3 and 40 mL) Units in injection the evening. Insulin 2021-09 Yes [id number] 40U inject 40 [facility] 1-09 Units ity of (LEVEMIR 00:00: [place] 00 skin in [facility] U-100 the Branch INSULN) 100 morning unit/mL (3 and 40 mL) Units in injection the evening. Insulin 2021-09 Yes [id number] 40U inject 40 [facility] 1-09 Units [facility] of (LEVEMIR 00:00: [place] skin in [facility] U-100 the Branch INSULN) 100 morning unit/mL (3 and 40 mL) Units in injection the evening. Insulin 2021-09 Yes [id number] 40U inject 40 [facility] 1-09 Units [facility] of (LEVEMIR 00:00: [place] 00 skin in [facility] U-100 the Branch INSULN) 100 morning unit/mL (3 and 40 mL) Units in injection the evening. Insulin 2021-09 Yes [id number] 40U inject 40 [facility] 1-09 Units [facility] of (LEVEMIR 00:00: [place] [address] [facility] the Branch INSULN) 100 morning unit/mL (3 and 40 mL) Units in injection the evening. Insulin 2021-09 Yes [id number] 40U inject 40 [facility] 1-09 Units ity of (LEVEMIR 00:00: [place] 00 skin in Medical U-100 the Branch INSULN) 100 morning unit/mL (3 and 40 mL) Units in injection the evening. Insulin 2021-09 Yes [id number] 40U inject 40 [facility] 1-09 Units ity of (LEVEMIR 00:00: [place] 00 skin in Medical U-100 the Branch INSULN) 100 morning unit/mL (3 and 40 mL) Units in injection the evening. Insulin 2021-09 Yes [id number] 40U inject 40 [facility] 1-09 Units ity of (LEVEMIR 00:00: [place] 00 skin in Medical U-100 the Branch INSULN) 100 morning unit/mL (3 and 40 mL) Units in injection the evening. Insulin 2021-09 Yes [id number] 40U inject 40 [facility] 1-09 Units ity of (LEVEMIR 00:00: [place] 00 skin in Medical U-100 the Branch INSULN) 100 morning unit/mL (3 and 40 mL) Units in injection the evening. Insulin 2021-09 Yes [id number] 40U inject 40 [facility] 1-09 Units ity of (LEVEMIR 00:00: [place] skin in Medical U-100 the Branch INSULN) 100 morning unit/mL (3 and 40 mL) Units in injection the evening. Insulin 2021-09- No [id number] 40U inject 40 [facility] 1-09 03-13 Units ity of (LEVEMIR 00:00: 00:00 under the [place] FLEXTOUCH 00 :00 skin in Medical U-100 the Branch INSULN) 100 morning unit/mL (3 and 40 mL) Units in injection the evening. ibuprofen 2021-09 Yes [id number] 600mg Take 1 [facility] 600 mg 1-07 [id number] tablet by ity of tablet 00:00: mouth [place] 00 every 6 Medical (six) Branch hours as needed for Pain (scale 4-6). ibuprofen 2021-09 Yes [id number] 600mg Take 1 [facility] 600 mg 1-07 53483 tablet by ity of tablet 00:00: mouth [place] 00 every 6 Medical (six) Branch hours as needed for Pain (scale 4-6). ibuprofen 2021-09 Yes [id number] 600mg Take 1 [facility] 600 mg 1-07 31513 tablet by ity of tablet 00:00: mouth [place] 00 every 6 Medical (six) Branch hours as needed for Pain (scale 4-6). ibuprofen 2021-09 Yes [id number] 600mg Take 1 [facility] 600 mg 1-07 22048 tablet by ity of tablet 00:00: mouth [place] 00 every 6 Medical (six) Branch hours as needed for Pain (scale 4-6). ibuprofen 2021-09 Yes [id number] 600mg Take 1 [facility] 600 mg 1-07 [id number] tablet by ity of tablet 00:00: mouth [place] 00 every 6 Medical (six) Branch hours as needed for Pain (scale 4-6). ibuprofen 2021-09 Yes [id number] 600mg Take 1 [facility] 600 mg 1-07 [id number] tablet by ity of tablet 00:00: mouth [place] 00 every 6 Medical (six) Branch hours as needed for Pain (scale 4-6). ibuprofen 2021-09 Yes [id number] 600mg Take 1 [facility] 600 mg 1-07 37524 tablet by ity of tablet 00:00: mouth [place] 00 every 6 Medical (six) Branch hours as needed for Pain (scale 4-6). ibuprofen 2021-09 Yes [id number] 600mg Take 1 [facility] 600 mg 1-07 16978 tablet by ity of tablet 00:00: mouth [place] 00 every 6 Medical (six) Branch hours as needed for Pain (scale 4-6). ibuprofen 2021-09 Yes [id number] 600mg Take 1 [facility] 600 mg 1-07 50962 tablet by ity of tablet 00:00: mouth [place] 00 every 6 Medical (six) Branch hours as needed for Pain (scale 4-6). ibuprofen 2021-09 Yes [id number] 600mg Take 1 [facility] 600 mg 1-07 31523 tablet by ity of tablet 00:00: mouth [place] 00 every 6 Medical (six) Branch hours as needed for Pain (scale 4-6). ibuprofen 2021-09 Yes [id number] 600mg Take 1 [facility] 600 mg 1-07 [id number] tablet by ity of tablet 00:00: mouth [place] 00 every 6 Medical (six) Branch hours as needed for Pain (scale 4-6). ibuprofen 2021-09 Yes [id number] 600mg Take 1 [facility] 600 mg 1-07 [id number] tablet by ity of tablet 00:00: mouth [place] 00 every 6 Medical (six) Branch hours as needed for Pain (scale 4-6). ibuprofen 2021-09 Yes [id number] 600mg Take 1 [facility] 600 mg 1-07 46485 tablet by ity of tablet 00:00: mouth [place] 00 every 6 Medical (six) Branch hours as needed for Pain (scale 4-6). ibuprofen 2021-09 Yes [id number] 600mg Take 1 [facility] 600 mg 1-07 52881 tablet by ity of tablet 00:00: mouth [place] 00 every 6 Medical (six) Branch hours as needed for Pain (scale 4-6). ibuprofen 2021-09 Yes [id number] 600mg Take 1 [facility] 600 mg 1-07 43950 tablet by ity of tablet 00:00: mouth [place] 00 every 6 Medical (six) Branch hours as needed for Pain (scale 4-6). ibuprofen 2021-09 Yes [id number] 600mg Take 1 [facility] 600 mg 1-07 [id number] tablet by ity of tablet 00:00: mouth [place] 00 every 6 Medical (six) Branch hours as needed for Pain (scale 4-6). ibuprofen 2021-09 Yes [id number] 600mg Take 1 [facility] 600 mg 1-07 08090 tablet by ity of tablet 00:00: mouth [place] 00 every 6 Medical (six) Branch hours as needed for Pain (scale 4-6). ibuprofen 2021-09 Yes [id number] 600mg Take 1 [facility] 600 mg 1-07 65094 tablet by ity of tablet 00:00: mouth [place] 00 every 6 Medical (six) Branch hours as needed for Pain (scale 4-6). ibuprofen 2021-09 Yes [id number] 600mg Take 1 [facility] 600 mg 1-07 55420 tablet by ity of tablet 00:00: mouth [place] 00 every 6 Medical (six) Branch hours as needed for Pain (scale 4-6). ibuprofen 2021-09 Yes [id number] 600mg Take 1 [facility] 600 mg 1-07 41953 tablet by ity of tablet 00:00: mouth [place] 00 every 6 Medical (six) Branch hours as needed for Pain (scale 4-6). ibuprofen 2021-09 Yes [id number] 600mg Take 1 [facility] 600 mg 1-07 94815 tablet by ity of tablet 00:00: mouth [place] 00 every 6 Medical (six) Branch hours as needed for Pain (scale 4-6). ibuprofen 2021-09 Yes [id number] 600mg Take 1 [facility] 600 mg 1-07 15180 tablet by ity of tablet 00:00: mouth [place] 00 every 6 Medical (six) Branch hours as needed for Pain (scale 4-6). ibuprofen 2021-09 Yes [id number] 600mg Take 1 [facility] 600 mg 1-07 40906 tablet by ity of tablet 00:00: mouth [place] 00 every 6 Medical (six) Branch hours as needed for Pain (scale 4-6). ibuprofen 2021-09 Yes [id number] 600mg Take 1 [facility] 600 mg 1-07 31406 tablet by ity of tablet 00:00: mouth [place] 00 every 6 Medical (six) Branch hours as needed for Pain (scale 4-6). ibuprofen 2021-09 Yes [id number] 600mg Take 1 [facility] 600 mg 1-07 32222 tablet by ity of tablet 00:00: mouth [place] 00 every 6 Medical (six) Branch hours as needed for Pain (scale 4-6). ibuprofen 2021-09 Yes [id number] 600mg Take 1 [facility] 600 mg 1-07 05819 tablet by ity of tablet 00:00: mouth [place] 00 every 6 Medical (six) Branch hours as needed for Pain (scale 4-6). ibuprofen 2021-09 Yes [id number] 600mg Take 1 [facility] 600 mg 1-07 [id number] tablet by ity of tablet 00:00: mouth [place] 00 every 6 Medical (six) Branch hours as needed for Pain (scale 4-6). ibuprofen 2021-09 Yes [id number] 600mg Take 1 [facility] 600 mg 1-07 [id number] tablet by ity of tablet 00:00: mouth [place] 00 every 6 Medical (six) Branch hours as needed for Pain (scale 4-6). ibuprofen 2021-09 Yes [id number] 600mg Take 1 [facility] 600 mg 1-07 [id number] tablet by ity of tablet 00:00: mouth [place] 00 every 6 Medical (six) Branch hours as needed for Pain (scale 4-6). ibuprofen 2021-09 Yes [id number] 600mg Take 1 [facility] 600 mg 1-07 [id number] tablet by ity of tablet 00:00: mouth [place] 00 every 6 Medical (six) Branch hours as needed for Pain (scale 4-6). ibuprofen 2021-09 Yes [id number] 600mg Take 1 [facility] 600 mg 1-07 73042 tablet by ity of tablet 00:00: mouth [place] 00 every 6 Medical (six) Branch hours as needed for Pain (scale 4-6). ibuprofen 2021-09 Yes [id number] 600mg Take 1 [facility] 600 mg 1-07 [id number] tablet by ity of tablet 00:00: mouth [place] 00 every 6 Medical (six) Branch hours as needed for Pain (scale 4-6). ibuprofen 2021-09 Yes [id number] 600mg Take 1 [facility] 600 mg 1-07 [id number] tablet by ity of tablet 00:00: mouth [place] 00 every 6 Medical (six) Branch hours as needed for Pain (scale 4-6). ibuprofen 2021-09 Yes [id number] 600mg Take 1 [facility] 600 mg 1-07 [id number] tablet by ity of tablet 00:00: mouth [place] 00 every 6 Medical (six) Branch hours as needed for Pain (scale 4-6). ibuprofen 2021-09 Yes [id number] 600mg Take 1 [facility] 600 mg 1-07 37250 tablet by ity of tablet 00:00: mouth [place] 00 every 6 Medical (six) Branch hours as needed for Pain (scale 4-6). ibuprofen 2021-09 Yes [id number] 600mg Take 1 [facility] 600 mg 1-07 [id number] tablet by ity of tablet 00:00: mouth [place] 00 every 6 Medical (six) Branch hours as needed for Pain (scale 4-6). ibuprofen 2021-09 Yes [id number] 600mg Take 1 [facility] 600 mg 1-07 [id number] tablet by ity of tablet 00:00: mouth [place] 00 every 6 Medical (six) Branch hours as needed for Pain (scale 4-6). ibuprofen 2021-09 Yes [id number] 600mg Take 1 [facility] 600 mg 1-07 [id number] tablet by ity of tablet 00:00: mouth [place] 00 every 6 Medical (six) Branch hours as needed for Pain (scale 4-6). ibuprofen 2021-09 Yes [id number] 600mg Take 1 [facility] 600 mg 1-07 [id number] tablet by ity of tablet 00:00: mouth [place] 00 every 6 Medical (six) Branch hours as needed for Pain (scale 4-6). ibuprofen 2021-09 Yes [id number] 600mg Take 1 [facility] 600 mg 1-07 13442 tablet by ity of tablet 00:00: mouth [place] 00 every 6 Medical (six) Branch hours as needed for Pain (scale 4-6). ibuprofen 2021-09 Yes [id number] 600mg Take 1 [facility] 600 mg 1-07 [id number] tablet by ity of tablet 00:00: mouth [place] 00 every 6 Medical (six) Branch hours as needed for Pain (scale 4-6). ibuprofen 2021-09 Yes [id number] 600mg Take 1 [facility] 600 mg 1-07 28566 tablet by ity of tablet 00:00: mouth [place] 00 every 6 Medical (six) Branch hours as needed for Pain (scale 4-6). ibuprofen 2021-09 Yes [id number] 600mg Take 1 [facility] 600 mg 1-07 [id number] tablet by ity of tablet 00:00: mouth [place] 00 every 6 Medical (six) Branch hours as needed for Pain (scale 4-6). ibuprofen 2021-09 Yes [id number] 600mg Take 1 [facility] 600 mg 1-07 65541 tablet by ity of tablet 00:00: mouth [place] 00 every 6 Medical (six) Branch hours as needed for Pain (scale 4-6). ibuprofen 2021-09 Yes [id number] 600mg Take 1 [facility] 600 mg 1-07 74981 tablet by ity of tablet 00:00: mouth [place] 00 every 6 Medical (six) Branch hours as needed for Pain (scale 4-6). ibuprofen 2021-09 Yes [id number] 600mg Take 1 [facility] 600 mg 1-07 [id number] tablet by ity of tablet 00:00: mouth [place] 00 every 6 Medical (six) Branch hours as needed for Pain (scale 4-6). ibuprofen 2021-09 Yes [id number] 600mg Take 1 [facility] 600 mg 1-07 [id number] tablet by ity of tablet 00:00: mouth [place] 00 every 6 Medical (six) Branch hours as needed for Pain (scale 4-6). ibuprofen 2021-09 Yes [id number] 600mg Take 1 [facility] 600 mg 1-07 [id number] tablet by ity of tablet 00:00: mouth [place] 00 every 6 Medical (six) Branch hours as needed for Pain (scale 4-6). ibuprofen 2021-09 Yes [id number] 600mg Take 1 [facility] 600 mg 1-07 28480 tablet by ity of tablet 00:00: mouth [place] 00 every 6 Medical (six) Branch hours as needed for Pain (scale 4-6). ibuprofen 2021-09 Yes [id number] 600mg Take 1 [facility] 600 mg 1-07 [id number] tablet by ity of tablet 00:00: mouth [place] 00 every 6 Medical (six) Branch hours as needed for Pain (scale 4-6). ibuprofen 2021-09 Yes [id number] 600mg Take 1 [facility] 600 mg 1-07 [id number] tablet by ity of tablet 00:00: mouth [place] 00 every 6 Medical (six) Branch hours as needed for Pain (scale 4-6). ibuprofen 2021-09 Yes [id number] 600mg Take 1 [facility] 600 mg 1-07 [id number] tablet by ity of tablet 00:00: mouth [place] 00 every 6 Medical (six) Branch hours as needed for Pain (scale 4-6). ibuprofen 2021-09 Yes [id number] 600mg Take 1 [facility] 600 mg 1-07 [id number] tablet by ity of tablet 00:00: mouth [place] 00 every 6 Medical (six) Branch hours as needed for Pain (scale 4-6). ibuprofen 2021-09 Yes [id number] 600mg Take 1 [facility] 600 mg 1-07 [id number] tablet by ity of tablet 00:00: mouth [place] 00 every 6 Medical (six) Branch hours as needed for Pain (scale 4-6). ibuprofen 2021-09 Yes [id number] 600mg Take 1 [facility] 600 mg 1-07 [id number] tablet by ity of tablet 00:00: mouth [place] 00 every 6 Medical (six) Branch hours as needed for Pain (scale 4-6). ibuprofen 2021-09 Yes [id number] 600mg Take 1 [facility] 600 mg 1-07 53089 tablet by ity of tablet 00:00: mouth [place] 00 every 6 Medical (six) Branch hours as needed for Pain (scale 4-6). ibuprofen 2021-09 Yes [id number] 600mg Take 1 [facility] 600 mg 1-07 [id number] tablet by ity of tablet 00:00: mouth [place] 00 every 6 Medical (six) Branch hours as needed for Pain (scale 4-6). ibuprofen 2021-09 Yes [id number] 600mg Take 1 [facility] 600 mg 1-07 [id number] tablet by ity of tablet 00:00: mouth [place] 00 every 6 Medical (six) Branch hours as needed for Pain (scale 4-6). ibuprofen 2021-09 Yes [id number] 600mg Take 1 [facility] 600 mg 1-07 34984 tablet by ity of tablet 00:00: mouth [place] 00 every 6 Medical (six) Branch hours as needed for Pain (scale 4-6). ibuprofen 2021-09 Yes [id number] 600mg Take 1 [facility] 600 mg 1-07 [id number] tablet by ity of tablet 00:00: mouth [place] 00 every 6 Medical (six) Branch hours as needed for Pain (scale 4-6). ibuprofen 2021-09 Yes [id number] 600mg Take 1 [facility] 600 mg 1-07 20712 tablet by ity of tablet 00:00: mouth [place] 00 every 6 Medical (six) Branch hours as needed for Pain (scale 4-6). ibuprofen 2021-09 Yes [id number] 600mg Take 1 [facility] 600 mg 1-07 [id number] tablet by ity of tablet 00:00: mouth [place] 00 every 6 Medical (six) Branch hours as needed for Pain (scale 4-6). ibuprofen 2021-09 Yes [id number] 600mg Take 1 [facility] 600 mg 1- 08189 tablet by ity of tablet 00:00: mouth [place] 00 every 6 Medical (six) Branch hours as needed for Pain (scale 4-6). ibuprofen 2021-09 Yes [id number] 600mg Take 1 [facility] 600 mg 1- 36312 tablet by ity of tablet 00:00: mouth [place] 00 every 6 Medical (six) Branch hours as needed for Pain (scale 4-6). ibuprofen 2021-09 Yes [id number] 600mg Take 1 [facility] 600 mg 1- 20027 tablet by ity of tablet 00:00: mouth [place] 00 every 6 Medical (six) Branch hours as needed for Pain (scale 4-6). ibuprofen 2021-09 Yes [id number] 600mg Take 1 [facility] 600 mg - 09171 tablet by ity of tablet 00:00: mouth [place] 00 every 6 Medical (six) Branch hours as needed for Pain (scale 4-6). ibuprofen 2021-09- No [id number] 600mg Take 1 [facility] 600 mg 09-29 [id number] tablet by ity of tablet 00:00: 00:00 mouth [place] 00 :00 every 6 Medical (six) Branch hours as needed for Pain (scale 4-6). ibuprofen 2021-09- No [id number] 600mg Take 1 [facility] 600 mg 09-29 [id number] tablet by ity of tablet 00:00: 00:00 mouth [place] 00 :00 every 6 Medical (six) Branch hours as needed for Pain (scale 4-6). ibuprofen 2021-09- No [id number] 600mg Take 1 [facility] 600 mg -03 25- 63040 tablet by ity of tablet 00:00: 00:00 mouth [place] 00 :00 every 6 Medical (six) Branch hours as needed for Pain (scale 4-6). ibuprofen 2021-09- No [id number] 600mg Take 1 [facility] 600 mg 1-03 25- 37686 tablet by ity of tablet 00:00: 00:00 mouth [place] 00 :00 every 6 Medical (six) Branch hours as needed for Pain (scale 4-6). acetaminoph 2021-09 4647 1{tbl} Take 1 U nivers en-codeine 09-25 tablet by ity of (TYLENOL-CO 00:00: 05:59 mouth [place] DEINE #3) 00 :00 every 4 Medical 300-30 mg (four) Branch tablet hours as needed for Pain (scale 7-10) for up to 7 days. Indication s: acute pain acetaminoph 2021-09 4647 1{tbl} Take 1 U nivers en-codeine 09-25 tablet by ity of (TYLENOL-CO 00:00: 05:59 mouth [place] DEINE #3) 00 :00 every 4 Medical 300-30 mg (four) Branch tablet hours as needed for Pain (scale 7-10) for up to 7 days. Indication s: acute pain acetaminoph 2021-09 1{tbl} Take 1 U nivers en-codeine 09-25 tablet by ity of (TYLENOL-CO 00:00: 05:59 mouth [place] DEINE #3) 00 :00 every 4 Medical 300-30 mg (four) Branch tablet hours as needed for Pain (scale 7-10) for up to 7 days. Indication s: acute pain acetaminoph 2021-09 4647 1{tbl} Take 1 U nivers en-codeine 09-25 tablet by ity of (TYLENOL-CO 00:00: 05:59 mouth [place] DEINE #3) 00 :00 every 4 Medical 300-30 mg (four) Branch tablet hours as needed for Pain (scale 7-10) for up to 7 days. Indication s: acute pain acetaminoph 2021-09 4647 1{tbl} Take 1 U nivers en-codeine 09-25 tablet by ity of (TYLENOL-CO 00:00: 05:59 mouth [place] DEINE #3) 00 :00 every 4 Medical 300-30 mg (four) Branch tablet hours as needed for Pain (scale 7-10) for up to 7 days. Indication s: acute pain acetaminoph 2022-1 2022- No 4647 1{tbl} Take 1 U nivers en-codeine 09-2511 tablet by ity of (TYLENOL-CO 00:00: 05:59 mouth [place] DEINE #3) 00 :00 every 4 Medical 300-30 mg (four) Branch tablet hours as needed for Pain (scale 7-10) for up to 7 days. Indication s: acute pain acetaminoph 2021-09 No 4647 1{tbl} Take 1 U nivers en-codeine 09-25 tablet by ity of (TYLENOL-CO 00:00: 05:59 mouth [place] DEINE #3) 00 :00 every 4 Medical 300-30 mg (four) Branch tablet hours as needed for Pain (scale 7-10) for up to 7 days. Indication s: acute pain acetaminoph 2021-09 No 4647 1{tbl} Take 1 U nivers en-codeine 09-25 tablet by ity of (TYLENOL-CO 00:00: 05:59 mouth [place] DEINE #3) 00 :00 every 4 Medical 300-30 mg (four) Branch tablet hours as needed for Pain (scale 7-10) for up to 7 days. Indication s: acute pain acetaminoph 2021-09 No 4647 1{tbl} Take 1 U nivers en-codeine 09-25 tablet by ity of (TYLENOL-CO 00:00: 05:59 mouth [place] DEINE #3) 00 :00 every 4 Medical 300-30 mg (four) Branch tablet hours as needed for Pain (scale 7-10) for up to 7 days. Indication s: acute pain acetaminoph 2021-09 No 4647 1{tbl} Take 1 U nivers en-codeine 09-25 tablet by ity of (TYLENOL-CO 00:00: 05:59 mouth [place] DEINE #3) 00 :00 every 4 Medical 300-30 mg (four) Branch tablet hours as needed for Pain (scale 7-10) for up to 7 days. Indication s: acute pain metFORMIN 2021-09 Yes [id number] 1000mg Take 2 [facility] 500 mg 0-11 tablets by ity of tablet 00:00: mouth in [place] 00 the Medical morning Branch and 2 tablets in the evening. Take with meals. pioglitazon 2021-09 Yes [id number] 15mg Take 1 [facility] e 15 mg 0-11 tablet by ity of tablet 00:00: mouth in [place] the Medical morning. Branch insulin 2021-09 Yes [id number] 80U inject 80 [facility] 0-11 Units ity of ([place] 00:[place] daily Medi brent U-200) 200 with Branch unit/mL (3 breakfast. mL) InPn Insulin 2021-09 Yes [id number] USE TWICE [facility] [place], 0-11 DAILY ity of Disposable, 00:00: [place] (TECHLITE 00 Medical PEN NEEDLE) Branch 32 gauge x 5/32" Ndle metFORMIN 2021-09 Yes [id number] 1000mg Take 2 [facility] 500 mg 0-11 tablets by ity of tablet 00:00: mouth in [place] the Medical morning Branch and 2 tablets in the evening. Take with meals. pioglitazon 2021-09 Yes [id number] 15mg Take 1 [facility] e 15 mg 0-11 tablet by ity of tablet 00:00: mouth in [place] the morning. Branch insulin 2021-09 Yes [id number] 80U inject 80 [facility] 0-11 Units ity of ([place]ESIB[place] 00:[place] skin daily Medi brent U-200) 200 with Branch unit/mL (3 breakfast. mL) InPn Insulin 2021-09 Yes [id number] USE TWICE [facility] [place], 0-11 DAILY ity of Disposable, 00:00: [place] (TECHLITE 00 Medical PEN NEEDLE) Branch 32 gauge x 5/32" Ndle metFORMIN 2021-09 Yes [id number] 1000mg Take 2 [facility] 500 mg 0-11 tablets by ity of tablet 00:00: mouth in [place] the Medical morning Branch and 2 tablets in the evening. Take with meals. pioglitazon 2021-09 Yes [id number] 15mg Take 1 [facility] e 15 mg 0-11 tablet by ity of tablet 00:00: mouth in [place] the Medical morning. Branch insulin 2021-09 Yes [id number] 80U inject 80 [facility] 0-11 Units ity of (TRESIB[place] 00:00[place] skin daily Medi brent U-200) 200 with Branch unit/mL (3 breakfast. mL) InPn Insulin 2021-09 Yes [id number] USE TWICE [facility] [place], 0-11 DAILY ity of Disposable, 00:00: [place] (TECHLITE 00 Medical PEN NEEDLE) Branch 32 gauge x 5/32" Ndle metFORMIN 2021-09 Yes [id number] 1000mg Take 2 [facility] 500 mg 0-11 tablets by ity of tablet 00:00: mouth in [place] the Medical morning Branch and 2 tablets in the evening. Take with meals. pioglitazon 2021-09 Yes [id number] 15mg Take 1 [facility] e 15 mg 0-11 tablet by ity of tablet 00:00: mouth in [place] the Medical morning. Branch insulin 2021-09 Yes [id number] 80U inject 80 [facility] 0-11 Units ity of ([place]ESIB[place] 00:00[place] skin daily Medi brent U-200) 200 with Branch unit/mL (3 breakfast. mL) In Insulin 2021-09 Yes [id number] USE TWICE [facility] [place], 0-11 DAILY ity of Disposable, 00:00: [place] (TECHLITE 00 Medical PEN NEEDLE) Branch 32 gauge x 5/32" Ndle metFORMIN 2021-09 Yes [id number] 1000mg Take 2 [facility] 500 mg 0-11 tablets by ity of tablet 00:00: mouth in [place] the Medical morning Branch and 2 tablets in the evening. Take with meals. pioglitazon 2021-09 Yes [id number] 15mg Take 1 [facility] e 15 mg 0-11 tablet by ity of tablet 00:00: mouth in [place] the Medical morning. Branch insulin 2021-09 Yes [id number] 80U inject 80 [facility] 0-11 Units ity of ([place]ESIB[place] 00:00[place] skin daily Medi brent U-200) 200 with Branch unit/mL (3 breakfast. mL) InPn Insulin 2021-09 Yes [id number] USE TWICE [facility] [place], 0-11 DAILY ity of Disposable, 00:00: [place] (TECHLITE 00 Medical PEN NEEDLE) Branch 32 gauge x 5/32" Ndle metFORMIN 2021-09 Yes [id number] 1000mg Take 2 [facility] 500 mg 0-11 tablets by ity of tablet 00:00: mouth in [place] the morning Branch and 2 tablets in the evening. Take with meals. pioglitazon 2021-09 Yes [id number] 15mg Take 1 [facility] e 15 mg 0-11 tablet by ity of tablet 00:00: mouth in [place] the morning. Branch insulin 2021-09 Yes [id number] 80U inject 80 [facility] 0-11 Units ity of (TRESIBA 00:00[place] skin daily Medi brent U-200) 200 with Branch unit/mL (3 breakfast. mL) InPn Insulin 2021-09 Yes [id number] USE TWICE [facility] [place], 0-11 DAILY ity of Disposable, 00:00: [place] (TECHLITE 00 Medical PEN NEEDLE) Branch 32 gauge x 5/32" Ndle metFORMIN 2021-09 Yes [id number] 1000mg Take 2 [facility] 500 mg 0-11 tablets by ity of tablet 00:00: mouth in [place] the morning Branch and 2 tablets in the evening. Take with meals. pioglitazon 2021-09 Yes [id number] 15mg Take 1 [facility] e 15 mg 0-11 tablet by ity of tablet 00:00: mouth in [place] the morning. Branch insulin 2021-09 Yes [id number] 80U inject 80 [facility] 0-11 Units ity of (TRESIBA 00:00[place] skin daily Medi brent U-200) 200 with Branch unit/mL (3 breakfast. mL) InPn Insulin 2021-09 Yes [id number] USE TWICE [facility] [place], 0-11 DAILY ity of Disposable, 00:00: [place] (TECHLITE 00 Medical PEN NEEDLE) Branch 32 gauge x 5/32" Ndle metFORMIN 2021-09 Yes [id number] 1000mg Take 2 [facility] 500 mg 0-11 tablets by ity of tablet 00:00: mouth in [place] the morning Branch and 2 tablets in the evening. Take with meals. pioglitazon 2021-09 Yes [id number] 15mg Take 1 [facility] e 15 mg 0-11 tablet by ity of tablet 00:00: mouth in [place] the morning. Branch insulin 2021-09 Yes [id number] 80U inject 80 [facility] 0-11 Units ity of (TRESIBA 00:00[place] skin daily Medi brent U-200) 200 with Branch unit/mL (3 breakfast. mL) InPn Insulin 2021-09 Yes [id number] USE TWICE [facility] [place], 0-11 DAILY ity of Disposable, 00:00: [place] (LITE Medical PEN NEEDLE) Branch 32 gauge x 5/32" Ndle metFORMIN 2021-09 Yes [id number] 1000mg Take 2 [facility] 500 mg 0-11 tablets by ity of tablet 00:00: mouth in [place] the morning Branch and 2 tablets in the evening. Take with meals. pioglitazon 2021-09 Yes [id number] 15mg Take 1 [facility] e 15 mg 0-11 tablet by ity of tablet 00:00: mouth in [place] the morning. Branch insulin 2021-09 Yes [id number] 80U inject 80 [facility] 0-11 Units ity of (TRESIBA 00:00[place] skin daily Medi brent U-200) 200 with Branch unit/mL (3 breakfast. mL) InPn Insulin 2021-09 Yes [id number] USE TWICE [facility] [place], 0-11 DAILY ity of Disposable, 00:00: [place] (LITE Medical PEN NEEDLE) Branch 32 gauge x 5/32" Ndle metFORMIN 2021-09 Yes [id number] 1000mg Take 2 [facility] 500 mg 0-11 tablets by ity of tablet 00:00: mouth in [place] the morning Branch and 2 tablets in the evening. Take with meals. pioglitazon 2021-09 Yes [id number] 15mg Take 1 [facility] e 15 mg 0-11 tablet by ity of tablet 00:00: mouth in [place] the morning. Branch insulin 2021-09 Yes [id number] 80U inject 80 [facility] 0-11 Units ity of (TRESIBA 00:00[place] skin daily Medi brent U-200) 200 with Branch unit/mL (3 breakfast. mL) InPn Insulin 2021-09 Yes [id number] USE TWICE [facility] [place], 0-11 DAILY ity of Disposable, 00:00: [place] (TECHL[facility] 00 Medical PEN NEEDLE) Branch 32 gauge x 5/32" Ndle metFORMIN 2021-09 Yes [id number] 1000mg Take 2 [facility] 500 mg 0-11 tablets by ity of tablet 00:00: mouth in [place] the Medical morning Branch and 2 tablets in the evening. Take with meals. pioglitazon 2021-09 Yes [id number] 15mg Take 1 [facility] e 15 mg 0-11 tablet by ity of tablet 00:00: mouth in [place] the Medical morning. Branch insulin 2021-09 Yes [id number] 80U inject 80 [facility] 0-11 Units ity of (TRESIBA 00:00[place] skin daily Medi brent U-200) 200 with Branch unit/mL (3 breakfast. mL) InPn Insulin 2021-09 Yes [id number] USE TWICE [facility] [place], 0-11 DAILY ity of Disposable, 00:00: [place] (LITE Medical PEN NEEDLE) Branch 32 gauge x 5/32" Ndle metFORMIN 2021-09 Yes [id number] 1000mg Take 2 [facility] 500 mg 0-11 tablets by ity of tablet 00:00: mouth in [place] the morning Branch and 2 tablets in the evening. Take with meals. pioglitazon 2021-09 Yes [id number] 15mg Take 1 [facility] e 15 mg 0-11 tablet by ity of tablet 00:00: mouth in [place] the morning. Branch insulin 2021-09 Yes [id number] 80U inject 80 [facility] 0-11 Units ity of (TRESIBA 00:00[place] skin daily Medi brent U-200) 200 with Branch unit/mL (3 breakfast. mL) InPn Insulin 2021-09 Yes [id number] USE TWICE [facility] [place], 0-11 DAILY ity of Disposable, 00:00: [place] (TECH[facility] 00 Medical PEN NEEDLE) Branch 32 gauge x 5/32" Ndle metFORMIN 2021-09 Yes [id number] 1000mg Take 2 [facility] 500 mg 0-11 tablets by ity of tablet 00:00: mouth in [place] the Medical morning Branch and 2 tablets in the evening. Take with meals. pioglitazon 2021-09 Yes [id number] 15mg Take 1 [facility] e 15 mg 0-11 tablet by ity of tablet 00:00: mouth in [place] the Medical morning. Branch Insulin 2021-09 Yes [id number] USE TWICE [facility] [place], 0-11 DAILY ity of Disposable, 00:00: [place] (TECHLITE Medical PEN NEEDLE) Branch 32 gauge x 5/32" Ndle metFORMIN 2021-09 Yes [id number] 1000mg Take 2 [facility] 500 mg 0-11 tablets by ity of tablet 00:00: mouth in [place] the Medical morning Branch and 2 tablets in the evening. Take with meals. pioglitazon 2021-09 Yes [id number] 15mg Take 1 [facility] e 15 mg 0-11 tablet by ity of tablet 00:00: mouth in [place] the Medical morning. Branch Insulin 2021-09 Yes [id number] USE TWICE [facility] [place], 0-11 DAILY ity of Disposable, 00:00: [place] (TECH[facility]ITE Medical PEN NEEDLE) Branch 32 gauge x 5/32" Ndle metFORMIN 2021-09 Yes [id number] 1000mg Take 2 [facility] 500 mg 0-11 tablets by ity of tablet 00:00: mouth in [place] the Medical morning Branch and 2 tablets in the evening. Take with meals. pioglitazon 2021-09 Yes [id number] 15mg Take 1 [facility] e 15 mg 0-11 tablet by ity of tablet 00:00: mouth in [place] the Medical morning. Branch Insulin 2021-09 Yes [id number] USE TWICE [facility] [place], 0-11 DAILY ity of Disposable, 00:00: [place] (TECHLITE Medical PEN NEEDLE) Branch 32 gauge x 5/32" Ndle metFORMIN 2021-09 Yes [id number] 1000mg Take 2 [facility] 500 mg 0-11 tablets by ity of tablet 00:00: mouth in [place] the Medical morning Branch and 2 tablets in the evening. Take with meals. pioglitazon 2021-09 Yes [id number] 15mg Take 1 [facility] e 15 mg 0-11 tablet by ity of tablet 00:00: mouth in [place] the Medical morning. Branch Insulin 2021-09 Yes [id number] USE TWICE [facility] [place], 0-11 DAILY ity of Disposable, 00:00: [place] (TECHLITE Medical PEN NEEDLE) Branch 32 gauge x 5/32" Ndle metFORMIN 2021-09 Yes [id number] 1000mg Take 2 [facility] 500 mg 0-11 tablets by ity of tablet 00:00: mouth in [place] the morning Branch and 2 tablets in the evening. Take with meals. pioglitazon 2021-09 Yes [id number] 15mg Take 1 [facility] e 15 mg 0-11 tablet by ity of tablet 00:00: mouth in [place] the morning. Branch Insulin 2021-09 Yes [id number] USE TWICE [facility] [place], 0-11 DAILY ity of Disposable, 00:00: [place] (TECHLITE 00 Medical PEN NEEDLE) Branch 32 gauge x 5/32" Ndle metFORMIN 2021-09 Yes [id number] 1000mg Take 2 [facility] 500 mg 0-11 tablets by ity of tablet 00:00: mouth in [place] the morning Branch and 2 tablets in the evening. Take with meals. pioglitazon 2021-09 Yes [id number] 15mg Take 1 [facility] e 15 mg 0-11 tablet by ity of tablet 00:00: mouth in [place] the morning. Branch Insulin 2021-09 Yes [id number] USE TWICE [facility] [place], 0-11 DAILY ity of Disposable, 00:00: [place] (TECHLITE Medical PEN NEEDLE) Branch 32 gauge x 5/32" Ndle metFORMIN 2021-09 Yes [id number] 1000mg Take 2 [facility] 500 mg 0-11 tablets by ity of tablet 00:00: mouth in [place] the morning Branch and 2 tablets in the evening. Take with meals. pioglitazon 2021-09 Yes [id number] 15mg Take 1 [facility] e 15 mg 0-11 tablet by ity of tablet 00:00: mouth in [place] the morning. Branch Insulin 2021-09 Yes [id number] USE TWICE [facility] [place], 0-11 DAILY ity of Disposable, 00:00: [place] (TECHLITE Medical PEN NEEDLE) Branch 32 gauge x 5/32" Ndle metFORMIN 2021-09 Yes [id number] 1000mg Take 2 [facility] 500 mg 0-11 tablets by ity of tablet 00:00: mouth in [place] the morning Branch and 2 tablets in the evening. Take with meals. pioglitazon 2021-09 Yes [id number] 15mg Take 1 [facility] e 15 mg 0-11 tablet by ity of tablet 00:00: mouth in [place] the morning. Branch Insulin 2021-09 Yes [id number] USE TWICE [facility] [place], 0-11 DAILY ity of Disposable, 00:00: [place] (LITE Medical PEN NEEDLE) Branch 32 gauge x 5/32" Ndle metFORMIN 2021-09 Yes [id number] 1000mg Take 2 [facility] 500 mg 0-11 tablets by ity of tablet 00:00: mouth in [place] the morning Branch and 2 tablets in the evening. Take with meals. pioglitazon 2021-09 Yes [id number] 15mg Take 1 [facility] e 15 mg 0-11 tablet by ity of tablet 00:00: mouth in [place] the morning. Branch Insulin 2021-09 Yes [id number] USE TWICE [facility] [place], 0-11 DAILY ity of Disposable, 00:00: [place] (LITE Medical PEN NEEDLE) Branch 32 gauge x 5/32" Ndle metFORMIN 2021-09 Yes [id number] 1000mg Take 2 [facility] 500 mg 0-11 tablets by ity of tablet 00:00: mouth in [place] the morning Branch and 2 tablets in the evening. Take with meals. pioglitazon 2021-09 Yes [id number] 15mg Take 1 [facility] e 15 mg 0-11 tablet by ity of tablet 00:00: mouth in [place] the morning. Branch Insulin 2021-09 Yes [id number] USE TWICE [facility] [place], 0-11 DAILY ity of Disposable, 00:00: [place] (TE Medical PEN NEEDLE) Branch 32 gauge x 5/32" Ndle metFORMIN 2021-09 Yes [id number] 1000mg Take 2 [facility] 500 mg 0-11 tablets by ity of tablet 00:00: mouth in [place] the morning Branch and 2 tablets in the evening. Take with meals. pioglitazon 2021-09 Yes [id number] 15mg Take 1 [facility] e 15 mg 0-11 tablet by ity of tablet 00:00: mouth in [place] the morning. Branch Insulin 2021-09 Yes [id number] USE TWICE [facility] [place], 0-11 DAILY ity of Disposable, 00:00: [place] (TECHLITE Medical PEN NEEDLE) Branch 32 gauge x 5/32" Ndle metFORMIN 2021-09 Yes [id number] 1000mg Take 2 [facility] 500 mg 0-11 tablets by ity of tablet 00:00: mouth in [place] the Medical morning Branch and 2 tablets in the evening. Take with meals. pioglitazon 2021-09 Yes [id number] 15mg Take 1 [facility] e 15 mg 0-11 tablet by ity of tablet 00:00: mouth in [place] the morning. Branch Insulin 2021-09 Yes [id number] USE TWICE [facility] [place], 0-11 DAILY ity of Disposable, 00:00: [place] (TECHLITE Medical PEN NEEDLE) Branch 32 gauge x 5/32" Ndle metFORMIN 2021-09 Yes [id number] 1000mg Take 2 [facility] 500 mg 0-11 tablets by ity of tablet 00:00: mouth in [place] the morning Branch and 2 tablets in the evening. Take with meals. pioglitazon 2021-09 Yes [id number] 15mg Take 1 [facility] e 15 mg 0-11 tablet by ity of tablet 00:00: mouth in [place] the morning. Branch Insulin 2021-09 Yes [id number] USE TWICE [facility] [place], 0-11 DAILY ity of Disposable, 00:00: [place] (TECHLITE Medical PEN NEEDLE) Branch 32 gauge x 5/32" Ndle metFORMIN 2021-09 Yes [id number] 1000mg Take 2 [facility] 500 mg 0-11 tablets by ity of tablet 00:00: mouth in [place] the morning Branch and 2 tablets in the evening. Take with meals. pioglitazon 2021-09 Yes [id number] 15mg Take 1 [facility] e 15 mg 0-11 tablet by ity of tablet 00:00: mouth in [place] the morning. Branch Insulin 2021-09 Yes [id number] USE TWICE [facility] [place], 0-11 DAILY ity of Disposable, 00:00: [place] (TECHLITE Medical PEN NEEDLE) Branch 32 gauge x 5/32" Ndle metFORMIN 2021-09 Yes [id number] 1000mg Take 2 [facility] 500 mg 0-11 tablets by ity of tablet 00:00: mouth in [place] the morning Branch and 2 tablets in the evening. Take with meals. pioglitazon 2021-09 Yes [id number] 15mg Take 1 [facility] e 15 mg 0-11 tablet by ity of tablet 00:00: mouth in [place] the morning. Branch Insulin 2021-09 Yes [id number] USE TWICE [facility] [place], 0-11 DAILY ity of Disposable, 00:00: [place] ( Medical PEN NEEDLE) Branch 32 gauge x 5/32" Ndle metFORMIN 2021-09 Yes [id number] 1000mg Take 2 [facility] 500 mg 0-11 tablets by ity of tablet 00:00: mouth in [place] the morning Branch and 2 tablets in the evening. Take with meals. pioglitazon 2021-09 Yes [id number] 15mg Take 1 [facility] e 15 mg 0-11 tablet by ity of tablet 00:00: mouth in [place] the morning. Branch Insulin 2021-09 Yes [id number] USE TWICE [facility] [place], 0-11 DAILY ity of Disposable, 00:00: [place] ( Medical PEN NEEDLE) Branch 32 gauge x 5/32" Ndle metFORMIN 2021-09 Yes [id number] 1000mg Take 2 [facility] 500 mg 0-11 tablets by ity of tablet 00:00: mouth in [place] the morning Branch and 2 tablets in the evening. Take with meals. pioglitazon 2021-09 Yes [id number] 15mg Take 1 [facility] e 15 mg 0-11 tablet by ity of tablet 00:00: mouth in [place] the morning. Branch Insulin 2021-09 Yes [id number] USE TWICE [facility] [place], 0-11 DAILY ity of Disposable, 00:00: [place] ( Medical PEN NEEDLE) Branch 32 gauge x 5/32" Ndle metFORMIN 2021-09 Yes [id number] 1000mg Take 2 [facility] 500 mg 0-11 tablets by ity of tablet 00:00: mouth in [place] the morning Branch and 2 tablets in the evening. Take with meals. pioglitazon 2021-09 Yes [id number] 15mg Take 1 [facility] e 15 mg 0-11 tablet by ity of tablet 00:00: mouth in [place] the morning. Branch Insulin 2021-09 Yes [id number] USE TWICE [facility] [place], 0-11 DAILY ity of Disposable, 00:00: [place] (TECHLITE Medical PEN NEEDLE) Branch 32 gauge x 5/32" Ndle metFORMIN 2021-09 Yes [id number] 1000mg Take 2 [facility] 500 mg 0-11 tablets by ity of tablet 00:00: mouth in [place] the Medical morning Branch and 2 tablets in the evening. Take with meals. pioglitazon 2021-09 Yes [id number] 15mg Take 1 [facility] e 15 mg 0-11 tablet by ity of tablet 00:00: mouth in [place] the morning. Branch Insulin 2021-09 Yes [id number] USE TWICE [facility] [place], 0-11 DAILY ity of Disposable, 00:00: [place] (TE Medical PEN NEEDLE) Branch 32 gauge x 5/32" Ndle metFORMIN 2021-09 Yes [id number] 1000mg Take 2 [facility] 500 mg 0-11 tablets by ity of tablet 00:00: mouth in [place] the morning Branch and 2 tablets in the evening. Take with meals. pioglitazon 2021-09 Yes [id number] 15mg Take 1 [facility] e 15 mg 0-11 tablet by ity of tablet 00:00: mouth in [place] the morning. Branch Insulin 2021-09 Yes [id number] USE TWICE [facility] [place], 0-11 DAILY ity of Disposable, 00:00: [place] ( Medical PEN NEEDLE) Branch 32 gauge x 5/32" Ndle metFORMIN 2021-09 Yes [id number] 1000mg Take 2 [facility] 500 mg 0-11 tablets by ity of tablet 00:00: mouth in [place] the morning Branch and 2 tablets in the evening. Take with meals. Insulin 2021-09 Yes [id number] USE TWICE [facility] [place], 0-11 DAILY ity of Disposable, 00:00: [place] ( Medical PEN NEEDLE) Branch 32 gauge x 5/32" Ndle metFORMIN 2021-09 Yes [id number] 1000mg Take 2 [facility] 500 mg 0-11 tablets by ity of tablet 00:00: mouth in [place] the Medical morning Branch and 2 tablets in the evening. Take with meals. Insulin 2021-09 Yes [id number] USE TWICE [facility] [place], 0-11 DAILY ity of Disposable, 00:00: [place] (LITE Medical PEN NEEDLE) Branch 32 gauge x 5/32" Ndle metFORMIN 2021-09 Yes [id number] 1000mg Take 2 [facility] 500 mg 0-11 tablets by ity of tablet 00:00: mouth in [place] the Medical morning Branch and 2 tablets in the evening. Take with meals. Insulin 2021-09 Yes [id number] USE TWICE [facility] [place], 0-11 DAILY ity of Disposable, 00:00: [place] (TECHLITE Medical PEN NEEDLE) Branch 32 gauge x 5/32" Ndle Insulin 2021-09 Yes [id number] USE TWICE [facility] [place], 0-11 DAILY ity of Disposable, 00:00: [place] (LITE Medical PEN NEEDLE) Branch 32 gauge x 5/32" Ndle Insulin 2021-09 Yes [id number] USE TWICE [facility] [place], 0-11 DAILY ity of Disposable, 00:00: [place] (LITE Medical PEN NEEDLE) Branch 32 gauge x 5/32" Ndle Insulin 2021-09 Yes [id number] USE TWICE [facility] [place], 0-11 DAILY ity of Disposable, 00:00: [place] (TECHLITE Medical PEN NEEDLE) Branch 32 gauge x 5/32" Ndle Insulin 2021-09 Yes [id number] USE TWICE [facility] [place], 0-11 DAILY ity of Disposable, 00:00: [place] (LITE Medical PEN NEEDLE) Branch 32 gauge x 5/32" Ndle Insulin 2021-09 Yes [id number] USE TWICE [facility] [place], 0-11 DAILY ity of Disposable, 00:00: [place] (LITE Medical PEN NEEDLE) Branch 32 gauge x 5/32" Ndle Insulin 2021-09 Yes [id number] USE TWICE [facility] [place], 0-11 DAILY ity of Disposable, 00:00: [place] (TECHLITE Medical PEN NEEDLE) Branch 32 gauge x 5/32" Ndle Insulin 2021-09 Yes [id number] USE TWICE [facility] [place], 0-11 DAILY ity of Disposable, 00:00: [place] (LITE Medical PEN NEEDLE) Branch 32 gauge x 5/32" Ndle Insulin 2021-09 Yes [id number] USE TWICE [facility] [place], 0-11 DAILY ity of Disposable, 00:00: [place] (TECHLITE Medical PEN NEEDLE) Branch 32 gauge x 5/32" Ndle Insulin 2021-09 Yes [id number] USE TWICE [facility] [place], 0-11 DAILY ity of Disposable, 00:00: [place] (TECHLITE Medical PEN NEEDLE) Branch 32 gauge x 5/32" Ndle Insulin 2021-09 Yes [id number] USE TWICE [facility] [place], 0-11 DAILY ity of Disposable, 00:00: [place] (TECHLITE 00 Medical PEN NEEDLE) Branch 32 gauge x 5/32" Ndle Insulin 2021-09 Yes [id number] USE TWICE [facility] [place], 0-11 DAILY ity of Disposable, 00:00: [place] (TECHLITE Medical PEN NEEDLE) Branch 32 gauge x 5/32" Ndle Insulin 2021-09 Yes [id number] USE TWICE [facility] [place], 0-11 DAILY ity of Disposable, 00:00: [place] (TECHLITE Medical PEN NEEDLE) Branch 32 gauge x 5/32" Ndle Insulin 2021-09 Yes [id number] USE TWICE [facility] [place], 0-11 DAILY ity of Disposable, 00:00: [place] (TECHLITE Medical PEN NEEDLE) Branch 32 gauge x 5/32" Ndle Insulin 2021-09 Yes [id number] USE TWICE [facility] [place], 0-11 DAILY ity of Disposable, 00:00: [place] (TECHLITE Medical PEN NEEDLE) Branch 32 gauge x 5/32" Ndle Insulin 2021-09 Yes [id number] USE TWICE [facility] [place], 0-11 DAILY ity of Disposable, 00:00: [place] (TECHLITE Medical PEN NEEDLE) Branch 32 gauge x 5/32" Ndle Insulin 2021-09 Yes [id number] USE TWICE [facility] [place], 0-11 DAILY ity of Disposable, 00:00: [place] (TECHLITE 00 Medical PEN NEEDLE) Branch 32 gauge x 5/32" Ndle Insulin 2021-09 Yes [id number] USE TWICE [facility] [place], 0-11 DAILY ity of Disposable, 00:00: [place] (TECHLITE Medical PEN NEEDLE) Branch 32 gauge x 5/32" Ndle Insulin 2021-09 Yes [id number] USE TWICE [facility] [place], 0-11 DAILY ity of Disposable, 00:00: [place] (TECHLITE 00 Medical PEN NEEDLE) Branch 32 gauge x 5/32" Ndle Insulin 2021-09 Yes [id number] USE TWICE [facility] [place], 0-11 DAILY ity of Disposable, 00:00: [place] (TECHLITE 00 Medical PEN NEEDLE) Branch 32 gauge x 5/32" Ndle Insulin 2021-09 Yes [id number] USE TWICE [facility] [place], 0-11 DAILY ity of Disposable, 00:00: [place] (TECHLITE Medical PEN NEEDLE) Branch 32 gauge x 5/32" Ndle Insulin 2021-09 Yes [id number] USE TWICE [facility] [place], 0-11 DAILY ity of Disposable, 00:00: [place] (TECHLITE Medical PEN NEEDLE) Branch 32 gauge x 5/32" Ndle Insulin 2021-09 Yes [id number] USE TWICE [facility] [place], 0-11 DAILY ity of Disposable, 00:00: [place] (LITE Medical PEN NEEDLE) Branch 32 gauge x 5/32" Ndle Insulin 2021-09 Yes [id number] USE TWICE [facility] [place], 0-11 DAILY ity of Disposable, 00:00: [place] (LITE Medical PEN NEEDLE) Branch 32 gauge x 5/32" Ndle Insulin 2021-09 Yes [id number] USE TWICE [facility] [place], 0-11 DAILY ity of Disposable, 00:00: [place] (LITE Medical PEN NEEDLE) Branch 32 gauge x 5/32" Ndle Insulin 2021-09 Yes [id number] USE TWICE [facility] [place], 0-11 DAILY ity of Disposable, 00:00: [place] [facility] Branch 32 gauge x 5/32" Ndle Insulin 2021-09 Yes [id number] USE TWICE [facility] [place], 0-11 DAILY ity of Disposable, 00:00: [place] (TECHLITE Medical PEN NEEDLE) Branch 32 gauge x 5/32" Ndle Insulin 2021-09 Yes [id number] USE TWICE [facility] [place], 0-11 DAILY ity of Disposable, 00:00: [place] (LITE Medical PEN NEEDLE) Branch 32 gauge x 5/32" Ndle Insulin 2021-09 Yes [id number] USE TWICE [facility] [place], 0-11 DAILY ity of Disposable, 00:00: [place] (LITE Medical PEN NEEDLE) Branch 32 gauge x 5/32" Ndle Insulin 2021-09 Yes [id number] USE TWICE [facility] [place], 0-11 DAILY ity of Disposable, 00:00: [place] (TECHLITE Medical PEN NEEDLE) Branch 32 gauge x 5/32" Ndle Insulin 2021-09 Yes [id number] USE TWICE [facility] [place], 0-11 DAILY ity of Disposable, 00:00: [place] (LITE Medical PEN NEEDLE) Branch 32 gauge x 5/32" Ndle Insulin 2022-1 Yes [id number] USE TWICE [facility] [place], 0-11 DAILY ity of Disposable, 00:00: [place] ([facility] 00 Medical PEN NEEDLE) Branch 32 gauge x 5/32" Ndle Insulin 2021-09 Yes [id number] USE TWICE [facility] [place], 0-11 DAILY ity of Disposable, 00:00: [place] ([facility] Medical PEN NEEDLE) Branch 32 gauge x 5/32" Ndle Insulin 2021-09 Yes [id number] USE TWICE [facility] [place], 0-11 DAILY ity of Disposable, 00:00: [place] (TECH[facility] Medical PEN NEEDLE) Branch 32 gauge x 5/32" Ndle Insulin 2021-09 Yes [id number] USE TWICE [facility] [place], 0-11 DAILY ity of Disposable, 00:00: [place] (TECH[facility] Medical PEN NEEDLE) Branch 32 gauge x 5/32" Ndle Insulin 2021-09 Yes [id number] USE TWICE [facility] [place], 0-11 DAILY ity of Disposable, 00:00: [place] ([employer] Medical PEN NEEDLE) Branch 32 gauge x 5/32" Ndle Insulin 2021-09 Yes [id number] USE TWICE [facility] [place], 0-11 DAILY ity of Disposable, 00:00: [place] ([facility] Medical PEN NEEDLE) Branch 32 gauge x 5/32" Ndle Insulin 2021-09 Yes [id number] USE TWICE [facility] [place], 0-11 DAILY ity of Disposable, 00:00: [place] (TECH[facility]ITE Medical PEN NEEDLE) Branch 32 gauge x 5/32" Ndle Insulin 2021-09 Yes [id number] USE TWICE [facility] [place], 0-11 DAILY ity of Disposable, 00:00: [place] (TECH[facility] Medical PEN NEEDLE) Branch 32 gauge x 5/32" Ndle Insulin 2021-09 Yes [id number] USE TWICE [facility] [place], 0-11 DAILY ity of Disposable, 00:00: [place] (TECHLITE 00 Medical PEN NEEDLE) Branch 32 gauge x 5/32" Ndle Insulin 2021-09 Yes [id number] USE TWICE [facility] [place], 0-11 DAILY ity of Disposable, 00:00: [place] (TECH[facility]ITE 00 Medical PEN NEEDLE) Branch 32 gauge x 5/32" Ndle Insulin 2021-09 Yes [id number] USE TWICE [facility] [place], 0-11 DAILY ity of Disposable, 00:00: [place] ([facility] Medical PEN NEEDLE) Branch 32 gauge x 5/32" Ndle Insulin 2021-09 Yes [id number] USE TWICE [facility] [place], 0-11 DAILY ity of Disposable, 00:00: [place] ([facility] Medical PEN NEEDLE) Branch 32 gauge x 5/32" Ndle Insulin 2021-09 Yes [id number] USE TWICE [facility] [place], 0-11 DAILY ity of Disposable, 00:00: [place] ([facility] Medical PEN NEEDLE) Branch 32 gauge x 5/32" Ndle Insulin 2021-09 Yes [id number] USE TWICE [facility] [place], 0-11 DAILY ity of Disposable, 00:00: [place] ([facility] Medical PEN NEEDLE) Branch 32 gauge x 5/32" Ndle Insulin 2021-09 Yes [id number] USE TWICE [facility] [place], 0-11 DAILY ity of Disposable, 00:00: [place] ([facility] Medical PEN NEEDLE) Branch 32 gauge x 5/32" Ndle Insulin 2021-09 Yes [id number] USE TWICE [facility] [place], 0-11 DAILY ity of Disposable, 00:00: [place] ([facility] Medical PEN NEEDLE) Branch 32 gauge x 5/32" Ndle Insulin 2021-09 Yes [id number] USE TWICE [facility] [place], 0-11 DAILY ity of Disposable, 00:00: [place] ([facility] Medical PEN NEEDLE) Branch 32 gauge x 5/32" Ndle Insulin 2021-09 Yes [id number] USE TWICE [facility] [place], 0-11 DAILY ity of Disposable, 00:00: [place] ([facility] Medical PEN NEEDLE) Branch 32 gauge x 5/32" Ndle Insulin 2021-09 Yes [id number] USE TWICE [facility] [place], 0-11 DAILY ity of Disposable, 00:00: [place] ([facility] Medical PEN NEEDLE) Branch 32 gauge x 5/32" Ndle Insulin 2021-09 Yes [id number] USE TWICE [facility] [place], 0-11 DAILY ity of Disposable, 00:00: [place] ([facility] Medical PEN NEEDLE) Branch 32 gauge x 5/32" Ndle Insulin 2021-09 Yes [id number] USE TWICE [facility] [place], 0-11 DAILY ity of Disposable, 00:00: [place] ([facility] Medical PEN NEEDLE) Branch 32 gauge x 5/32" Ndle Insulin 2021-09 Yes [id number] USE TWICE [facility] [place], 0-11 DAILY ity of Disposable, 00:00: [place] ([facility] Medical PEN NEEDLE) Branch 32 gauge x 5/32" Ndle Insulin 2021-09 Yes [id number] USE TWICE [facility] [place], 0-11 DAILY ity of Disposable, 00:00: [place] ([facility] Medical PEN NEEDLE) Branch 32 gauge x 5/32" Ndle Insulin 2021-09 Yes [id number] USE TWICE [facility] [place], 0-11 DAILY ity of Disposable, 00:00: [place] ([facility] Medical PEN NEEDLE) Branch 32 gauge x 5/32" Ndle Insulin 2021-09 Yes [id number] USE TWICE [facility] [place], 0-11 DAILY ity of Disposable, 00:00: [place] ([facility] Medical PEN NEEDLE) Branch 32 gauge x 5/32" Ndle Insulin 2021-09 Yes [id number] USE TWICE [facility] [place], 0-11 DAILY ity of Disposable, 00:00: [place] ([facility] Medical PEN NEEDLE) Branch 32 gauge x 5/32" Ndle Insulin 2021-09 Yes [id number] USE TWICE [facility] [place], 0-11 DAILY ity of Disposable, 00:00: [place] ([facility] Medical PEN NEEDLE) Branch 32 gauge x 5/32" Ndle Insulin 2021-09 Yes [id number] USE TWICE [facility] [place], 0-11 DAILY ity of Disposable, 00:00: [place] ([facility] Medical PEN NEEDLE) Branch 32 gauge x 5/32" Ndle Insulin 2021-09 Yes [id number] USE TWICE [facility] [place], 0-11 DAILY ity of Disposable, 00:00: [place] ([facility] Medical PEN NEEDLE) Branch 32 gauge x 5/32" Ndle Insulin 2021-09 Yes [id number] USE TWICE [facility] [place], 0-11 DAILY ity of Disposable, 00:00: [place] ([facility] Medical PEN NEEDLE) Branch 32 gauge x 5/32" Ndle Insulin 2021-09 Yes [id number] USE TWICE [facility] [place], 0-11 DAILY ity of Disposable, 00:00: [place] ([facility] Medical PEN NEEDLE) Branch 32 gauge x 5/32" Ndle Insulin 2021-09 Yes [id number] USE TWICE [facility] [place], 0-11 DAILY ity of Disposable, 00:00: [place] (TECH[facility]ITE 00 Medical PEN NEEDLE) Branch 32 gauge x 5/32" Ndle Insulin 2021-09 Yes [id number] USE TWICE [facility] [place], 0-11 DAILY ity of Disposable, 00:00: [place] ([facility]CH[employer] 00 Medical PEN NEEDLE) Branch 32 gauge x 5/32" Ndle Insulin 2021-09 Yes [id number] USE TWICE [facility] [place], 0-11 DAILY ity of Disposable, 00:00: [place] ([facility] Medical PEN NEEDLE) Branch 32 gauge x 5/32" Ndle Insulin 2021-09 Yes [id number] USE TWICE [facility] [place], 0-11 DAILY ity of Disposable, 00:00: [place] ([facility] Medical PEN NEEDLE) Branch 32 gauge x 5/32" Ndle Insulin 2021-09 Yes [id number] USE TWICE [facility] [place], 0-11 DAILY ity of Disposable, 00:00: [place] ([facility] Medical PEN NEEDLE) Branch 32 gauge x 5/32" Ndle Insulin 2021-09 Yes [id number] USE TWICE [facility] [place], 0-11 DAILY ity of Disposable, 00:00: [place] (TECH[facility] Medical PEN NEEDLE) Branch 32 gauge x 5/32" Ndle Insulin 2021-09 Yes [id number] USE TWICE [facility] [place], 0-11 DAILY ity of Disposable, 00:00: [place] ([facility]CH[facility] 00 Medical PEN NEEDLE) Branch 32 gauge x 5/32" Ndle Insulin 2021-09 Yes [id number] USE TWICE [facility] [place], 0-11 DAILY ity of Disposable, 00:00: [place] ([facility]CH[facility] 00 Medical PEN NEEDLE) Branch 32 gauge x 5/32" Ndle Insulin 2021-09 Yes [id number] USE TWICE [facility] [place], 0-11 DAILY ity of Disposable, 00:00: [place] ([facility]CH[employer] 00 Medical PEN NEEDLE) Branch 32 gauge x 5/32" Ndle Insulin 2021-09 Yes [id number] USE TWICE [facility] [place], 0-11 DAILY ity of Disposable, 00:00: [place] ([facility]CH[facility] 00 Medical PEN NEEDLE) Branch 32 gauge x 5/32" Ndle Insulin 2021-09 Yes [id number] USE TWICE [facility] [place], 0-11 DAILY ity of Disposable, 00:00: [place] ([facility] 00 Medical PEN NEEDLE) Branch 32 gauge x 5/32" Ndle Insulin 2021-09 Yes [id number] USE TWICE [facility] [place], 0-11 DAILY ity of Disposable, 00:00: [place] ([facility] 00 Medical PEN NEEDLE) Branch 32 gauge x 5/32" Ndle Insulin 2021-09 Yes [id number] USE TWICE [facility] [place], 0-11 DAILY ity of Disposable, 00:00: [place] [facility] PEN NEEDLE) Branch 32 gauge x 5/32" Ndle Insulin 2021-09 Yes [id number] USE TWICE [facility] [place], 0-11 DAILY ity of Disposable, 00:00: [place] [facility] PEN NEEDLE) Branch 32 gauge x 5/32" Ndle Insulin 2021-09 Yes [id number] USE TWICE [facility] [place], 0-11 DAILY ity of Disposable, 00:00: [place] (TECH[facility] Medical PEN NEEDLE) Branch 32 gauge x 5/32" Ndle Insulin 2021-09 Yes [id number] USE TWICE [facility] [place], 0-11 DAILY ity of Disposable, 00:00: [place] [facility] PEN NEEDLE) Branch 32 gauge x 5/32" Ndle Insulin 2021-09 Yes [id number] USE TWICE [facility] [place], 0-11 DAILY ity of Disposable, 00:00: [place] ([facility] Medical PEN NEEDLE) Branch 32 gauge x 5/32" Ndle Insulin 2021-09 Yes [id number] USE TWICE [facility] [place], 0-11 DAILY ity of Disposable, 00:00: [place] ([facility] Medical PEN NEEDLE) Branch 32 gauge x 5/32" Ndle Insulin 2021-09 Yes [id number] USE TWICE [facility] [place], 0-11 DAILY ity of Disposable, 00:00: [place] ([facility] Medical PEN NEEDLE) Branch 32 gauge x 5/32" Ndle Insulin 2021-09 Yes [id number] USE TWICE [facility] [place], 0-11 DAILY ity of Disposable, 00:00: [place] ([facility]CH[employer] 00 Medical PEN NEEDLE) Branch 32 gauge x 5/32" Ndle Insulin 2021-09 Yes [id number] USE TWICE [facility] [place], 0-11 DAILY ity of Disposable, 00:00: [place] ([facility]CH[employer] Medical PEN NEEDLE) Branch 32 gauge x 5/32" Ndle Insulin 2021-09 Yes [id number] USE TWICE [facility] [place], 0-11 DAILY ity of Disposable, 00:00: [place] ([facility] 00 Medical PEN NEEDLE) Branch 32 gauge x 5/32" Ndle Insulin 2021-09 Yes [id number] USE TWICE [facility] [place], 0-11 DAILY ity of Disposable, 00:00: [place] ([facility] Medical PEN NEEDLE) Branch 32 gauge x 5/32" Ndle Insulin 2021-09 Yes [id number] USE TWICE [facility] [place], 0-11 DAILY ity of Disposable, 00:00: [place] ([facility] Medical PEN NEEDLE) Branch 32 gauge x 5/32" Ndle Insulin 2021-09 Yes [id number] USE TWICE [facility] [place], 0-11 DAILY ity of Disposable, 00:00: [place] ([facility] Medical PEN NEEDLE) Branch 32 gauge x 5/32" Ndle Insulin 2021-09 Yes [id number] USE TWICE [facility] [place], 0-11 DAILY ity of Disposable, 00:00: [place] ([facility] Medical PEN NEEDLE) Branch 32 gauge x 5/32" Ndle Insulin 2021-09 Yes [id number] USE TWICE [facility] [place], 0-11 DAILY ity of Disposable, 00:00: [place] ([facility] Medical PEN NEEDLE) Branch 32 gauge x 5/32" Ndle Insulin 2021-09 Yes [id number] USE TWICE [facility] [place], 0-11 DAILY ity of Disposable, 00:00: [place] ([facility] Medical PEN NEEDLE) Branch 32 gauge x 5/32" Ndle Insulin 2021-09 Yes [id number] USE TWICE [facility] [place], 0-11 DAILY ity of Disposable, 00:00: [place] ([facility] Medical PEN NEEDLE) Branch 32 gauge x 5/32" Ndle Insulin 2021-09 Yes [id number] USE TWICE [facility] [place], 0-11 DAILY ity of Disposable, 00:00: [place] ([facility] 00 Medical PEN NEEDLE) Branch 32 gauge x 5/32" Ndle Insulin 2021-09 Yes [id number] USE TWICE [facility] [place], 0-11 DAILY ity of Disposable, 00:00: [place] ([employer] 00 Medical PEN NEEDLE) Branch 32 gauge x 5/32" Ndle Insulin 2021-09 Yes [id number] USE TWICE [facility] [place], 0-11 DAILY ity of Disposable, 00:00: [place] ([employer] 00 Medical PEN NEEDLE) Branch 32 gauge x 5/32" Ndle Insulin 2021-09 Yes [id number] USE TWICE [facility] [place], 0-11 DAILY ity of Disposable, 00:00: [place] ([facility]CH[employer] 00 Medical PEN NEEDLE) Branch 32 gauge x 5/32" Ndle Insulin 2021-09- No [id number] USE TWICE [facility] [place], 0-11 06-24 DAILY ity of Disposable, 00:00: 00:00 [place] (TECHLITE 00 :00 Medical PEN NEEDLE) Branch 32 gauge x 5/32" Ndle Insulin 2021-09- No [id number] USE TWICE [facility] [place], 0-11 06-24 DAILY ity of Disposable, 00:00: 00:00 [place] (TECHLITE 00 :00 Medical PEN NEEDLE) Branch 32 gauge x 5/32" Ndle Insulin 2021-09- No [id number] USE TWICE [facility] [place], 0-11 06-24 DAILY ity of Disposable, 00:00: 00:00 [place] (TECHLITE 00 :00 Medical PEN NEEDLE) Branch 32 gauge x 5/32" Ndle metFORMIN 2021-09- No [id number] 1000mg Take 2 [facility] 500 mg - tablets by ity of tablet 00:00: 00:00 mouth in [place] 00 :00 the Medical morning Branch and 2 tablets in the evening. Take with meals. pioglitazon 2021-09- No [id number] 15mg Take 1 Univers e 15 mg 009-14 tablet by ity of tablet 00:00: 00:00 mouth in [place] 00 :00 the Medical morning. Branch insulin 2021-09- No [id number] 80U inject 80 [facility] 011 11-09 Units ity of (TRESIBA 00:00: 00:00 under the [place] as FLEXTOUCH 00 :00 skin daily Medi brent U-200) 200 with Branch unit/mL (3 breakfast. mL) InPn insulin 2021-09- No [id number] 80U inject 80 [facility] 0-11 11-09 Units ity of (TRESIBA 00:00: 00:00 under the [place] as FLEXTOUCH 00 :00 skin daily Medi brent U-200) 200 with Branch unit/mL (3 breakfast. mL) InPn lisinopriL 2021-09 Yes [id number] 40mg Take 1 U nivers 40 mg 0-03 tablet by ity of tablet 00:00: mouth in [place] 00 the Medical morning. Branch traZODone 2021-09 Yes [id number] 50mg Take 1 Un luis 50 mg 0-03 tablet by ity of tablet 00:00: mouth at [place] 00 bedtime. Medical Branch venlafaxine 2021-09 Yes [id number] 75mg Take 1 [facility] XR 75 mg 24 0-03 capsule by it y of hr capsule 00:00: mouth [place] 00 daily with Medical breakfast. Branch clonazePAM 2021-09 Yes [id number] 1mg Take 1 U nivers 1 mg tablet 0-03 tablet by ity of 00:00: mouth in [place] the Medical morning. Branch lisinopriL 2021-09 Yes [id number] 40mg Take 1 U nivers 40 mg 0-03 tablet by ity of tablet 00:00: mouth in [place] 00 the Medical morning. Branch traZODone 2021-09 Yes [id number] 50mg Take 1 Un luis 50 mg 0-03 tablet by ity of tablet 00:00: mouth at [place] 00 bedtime. Medical Branch venlafaxine 2021-09 Yes [id number] 75mg Take 1 [facility] XR 75 mg 24 0-03 capsule by it y of hr capsule 00:00: mouth [place] 00 daily with Medical breakfast. Branch clonazePAM 2021-09 Yes [id number] 1mg Take 1 U nivers 1 mg tablet 0-03 tablet by ity of 00:00: mouth in [place] the Medical morning. Branch lisinopriL 2021-09 Yes [id number] 40mg Take 1 U nivers 40 mg 0-03 tablet by ity of tablet 00:00: mouth in [place] 00 the Medical morning. Branch traZODone 2021-09 Yes [id number] 50mg Take 1 Un luis 50 mg 0-03 tablet by ity of tablet 00:00: mouth at [place] 00 bedtime. Medical Branch venlafaxine 2021-09 Yes [id number] 75mg Take 1 [facility] XR 75 mg 24 0-03 capsule by it y of hr capsule 00:00: mouth [place] 00 daily with Medical breakfast. Branch clonazePAM 2021-09 Yes [id number] 1mg Take 1 U nivers 1 mg tablet 0-03 tablet by ity of 00:00: mouth in [place] 00 the Medical morning. Branch lisinopriL 2021-09 Yes [id number] 40mg Take 1 U nivers 40 mg 0-03 tablet by ity of tablet 00:00: mouth in [place] 00 the Medical morning. Branch traZODone 2021-09 Yes [id number] 50mg Take 1 Un luis 50 mg 0-03 tablet by ity of tablet 00:00: mouth at [place] 00 bedtime. Medical Branch venlafaxine 2021-09 Yes [id number] 75mg Take 1 [facility] XR 75 mg 24 0-03 capsule by it y of hr capsule 00:00: mouth [place] 00 daily with Medical breakfast. Branch clonazePAM 2021-09 Yes [id number] 1mg Take 1 U nivers 1 mg tablet 0-03 tablet by ity of 00:00: mouth in [place] the Medical morning. Branch lisinopriL 2021-09 Yes [id number] 40mg Take 1 U nivers 40 mg 0-03 tablet by ity of tablet 00:00: mouth in [place] the Medical morning. Branch traZODone 2021-09 Yes [id number] 50mg Take 1 Un luis 50 mg 0-03 tablet by ity of tablet 00:00: mouth at [place] [address] bedtime. Medical Branch venlafaxine 2021-09 Yes [id number] 75mg Take 1 [facility] XR 75 mg 24 0-03 capsule by it y of hr capsule 00:00: mouth [place] 00 daily with Medical breakfast. Branch clonazePAM 2021-09 Yes [id number] 1mg Take 1 U nivers 1 mg tablet 0-03 tablet by ity of 00:00: mouth in [place] the Medical morning. Branch lisinopriL 2021-09 Yes [id number] 40mg Take 1 U nivers 40 mg 0-03 tablet by ity of tablet 00:00: mouth in [place] the Medical morning. Branch traZODone 2021-09 Yes [id number] 50mg Take 1 Un luis 50 mg 0-03 tablet by ity of tablet 00:00: mouth at [place] 00 bedtime. Medical Branch venlafaxine 2021-09 Yes [id number] 75mg Take 1 [facility] XR 75 mg 24 0-03 capsule by it y of hr capsule 00:00: mouth [place] 00 daily with Medical breakfast. Branch clonazePAM 2021-09 Yes [id number] 1mg Take 1 U nivers 1 mg tablet 0-03 tablet by ity of 00:00: mouth in [place] the Medical morning. Branch lisinopriL 2021-09 Yes [id number] 40mg Take 1 U nivers 40 mg 0-03 tablet by ity of tablet 00:00: mouth in [place] the Medical morning. Branch traZODone 2021-09 Yes [id number] 50mg Take 1 Un luis 50 mg 0-03 tablet by ity of tablet 00:00: mouth at [place] 00 bedtime. Medical Branch venlafaxine 2021-09 Yes [id number] 75mg Take 1 [facility] XR 75 mg 24 0-03 capsule by it y of hr capsule 00:00: mouth [place] 00 daily with Medical breakfast. Branch clonazePAM 2021-09 Yes [id number] 1mg Take 1 U nivers 1 mg tablet 0-03 tablet by ity of 00:00: mouth in [place] the Medical morning. Branch lisinopriL 2021-09 Yes [id number] 40mg Take 1 U nivers 40 mg 0-03 tablet by ity of tablet 00:00: mouth in [place] the Medical morning. Branch traZODone 2021-09 Yes [id number] 50mg Take 1 Un luis 50 mg 0-03 tablet by ity of tablet 00:00: mouth at [place] 00 bedtime. Medical Branch venlafaxine 2021-09 Yes [id number] 75mg Take 1 [facility] XR 75 mg 24 0-03 capsule by it y of hr capsule 00:00: mouth [place] 00 daily with Medical breakfast. Branch clonazePAM 2021-09 Yes [id number] 1mg Take 1 U nivers 1 mg tablet 0-03 tablet by ity of 00:00: mouth in [place] the Medical morning. Branch lisinopriL 2021-09 Yes [id number] 40mg Take 1 U nivers 40 mg 0-03 tablet by ity of tablet 00:00: mouth in [place] 00 the Medical morning. Branch traZODone 2021-09 Yes [id number] 50mg Take 1 Un luis 50 mg 0-03 tablet by ity of tablet 00:00: mouth at [place] [address] bedtime. Medical Branch venlafaxine 2021-09 Yes [id number] 75mg Take 1 [facility] XR 75 mg 24 0-03 capsule by it y of hr capsule 00:00: mouth [place] 00 daily with Medical breakfast. Branch clonazePAM 2021-09 Yes [id number] 1mg Take 1 U nivers 1 mg tablet 0-03 tablet by ity of 00:00: mouth in [place] 00 the Medical morning. Branch lisinopriL 2021-09 Yes [id number] 40mg Take 1 U nivers 40 mg 0-03 tablet by ity of tablet 00:00: mouth in [place] 00 the Medical morning. Branch traZODone 2021-09 Yes [id number] 50mg Take 1 Un luis 50 mg 0-03 tablet by ity of tablet 00:00: mouth at [place] 00 bedtime. Medical Branch venlafaxine 2021-09 Yes [id number] 75mg Take 1 [facility] XR 75 mg 24 0-03 capsule by it y of hr capsule 00:00: mouth [place] 00 daily with Medical breakfast. Branch clonazePAM 2021-09 Yes [id number] 1mg Take 1 U nivers 1 mg tablet 0-03 tablet by ity of 00:00: mouth in [place] the Medical morning. Branch lisinopriL 2021-09 Yes [id number] 40mg Take 1 U nivers 40 mg 0-03 tablet by ity of tablet 00:00: mouth in [place] the Medical morning. Branch traZODone 2021-09 Yes [id number] 50mg Take 1 Un luis 50 mg 0-03 tablet by ity of tablet 00:00: mouth at [place] 00 bedtime. Medical Branch venlafaxine 2021-09 Yes [id number] 75mg Take 1 [facility] XR 75 mg 24 0-03 capsule by it y of hr capsule 00:00: mouth [place] 00 daily with Medical breakfast. Branch clonazePAM 2021-09 Yes [id number] 1mg Take 1 U nivers 1 mg tablet 0-03 tablet by ity of 00:00: mouth in [place] the Medical morning. Branch lisinopriL 2021-09 Yes [id number] 40mg Take 1 U nivers 40 mg 0-03 tablet by ity of tablet 00:00: mouth in [place] 00 the Medical morning. Branch traZODone 2021-09 Yes [id number] 50mg Take 1 Un luis 50 mg 0-03 tablet by ity of tablet 00:00: mouth at [place] 00 bedtime. Medical Branch venlafaxine 2021-09 Yes [id number] 75mg Take 1 [facility] XR 75 mg 24 0-03 capsule by it y of hr capsule 00:00: mouth [place] 00 daily with Medical breakfast. Branch clonazePAM 2021-09 Yes [id number] 1mg Take 1 U nivers 1 mg tablet 0-03 tablet by ity of 00:00: mouth in [place] 00 the Medical morning. Branch lisinopriL 2021-09 Yes [id number] 40mg Take 1 U nivers 40 mg 0-03 tablet by ity of tablet 00:00: mouth in [place] 00 the Medical morning. Branch traZODone 2021-09 Yes [id number] 50mg Take 1 Un luis 50 mg 0-03 tablet by ity of tablet 00:00: mouth at [place] 00 bedtime. Medical Branch venlafaxine 2021-09 Yes [id number] 75mg Take 1 [facility] XR 75 mg 24 0-03 capsule by it y of hr capsule 00:00: mouth [place] 00 daily with Medical breakfast. Branch clonazePAM 2021-09 Yes [id number] 1mg Take 1 U nivers 1 mg tablet 0-03 tablet by ity of 00:00: mouth in [place] the Medical morning. Branch lisinopriL 2021-09 Yes [id number] 40mg Take 1 U nivers 40 mg 0-03 tablet by ity of tablet 00:00: mouth in [place] the Medical morning. Branch traZODone 2021-09 Yes [id number] 50mg Take 1 Un luis 50 mg 0-03 tablet by ity of tablet 00:00: mouth at [place] [address] bedtime. Medical Branch venlafaxine 2021-09 Yes [id number] 75mg Take 1 [facility] XR 75 mg 24 0-03 capsule by it y of hr capsule 00:00: mouth [place] 00 daily with Medical breakfast. Branch clonazePAM 2021-09 Yes [id number] 1mg Take 1 U nivers 1 mg tablet 0-03 tablet by ity of 00:00: mouth in [place] the Medical morning. Branch lisinopriL 2021-09 Yes [id number] 40mg Take 1 U nivers 40 mg 0-03 tablet by ity of tablet 00:00: mouth in [place] 00 the Medical morning. Branch traZODone 2021-09 Yes [id number] 50mg Take 1 Un luis 50 mg 0-03 tablet by ity of tablet 00:00: mouth at [place] [address] bedtime. Medical Branch venlafaxine 2021- Yes [id number] 75mg Take 1 [facility] XR 75 mg 24 0-03 capsule by it y of hr capsule 00:00: mouth [place] 00 daily with Medical breakfast. Branch clonazePAM 2021-09 Yes [id number] 1mg Take 1 U nivers 1 mg tablet 0-03 tablet by ity of 00:00: mouth in [place] 00 the Medical morning. Branch lisinopriL 2021-09 Yes [id number] 40mg Take 1 U nivers 40 mg 0-03 tablet by ity of tablet 00:00: mouth in [place] 00 the Medical morning. Branch traZODone 2021-09 Yes [id number] 50mg Take 1 Un luis 50 mg 0-03 tablet by ity of tablet 00:00: mouth at [place] 00 bedtime. Medical Branch venlafaxine 2021-09 Yes [id number] 75mg Take 1 [facility] XR 75 mg 24 0-03 capsule by it y of hr capsule 00:00: mouth [place] 00 daily with Medical breakfast. Branch clonazePAM 2021-09 Yes [id number] 1mg Take 1 U nivers 1 mg tablet 0-03 tablet by ity of 00:00: mouth in [place] the Medical morning. Branch lisinopriL 2021-09 Yes [id number] 40mg Take 1 U nivers 40 mg 0-03 tablet by ity of tablet 00:00: mouth in [place] the Medical morning. Branch traZODone 2021-09 Yes [id number] 50mg Take 1 Un luis 50 mg 0-03 tablet by ity of tablet 00:00: mouth at [place] 00 bedtime. Medical Branch venlafaxine 2021-09 Yes [id number] 75mg Take 1 [facility] XR 75 mg 24 0-03 capsule by it y of hr capsule 00:00: mouth [place] 00 daily with Medical breakfast. Branch clonazePAM 2021-09 Yes [id number] 1mg Take 1 U nivers 1 mg tablet 0-03 tablet by ity of 00:00: mouth in [place] 00 the Medical morning. Branch lisinopriL 2021-09 Yes [id number] 40mg Take 1 U nivers 40 mg 0-03 tablet by ity of tablet 00:00: mouth in [place] 00 the Medical morning. Branch traZODone 2021-09 Yes [id number] 50mg Take 1 Un luis 50 mg 0-03 tablet by ity of tablet 00:00: mouth at [place] 00 bedtime. Medical Branch venlafaxine 2021-09 Yes [id number] 75mg Take 1 [facility] XR 75 mg 24 0-03 capsule by it y of hr capsule 00:00: mouth [place] 00 daily with Medical breakfast. Branch clonazePAM 2021-09 Yes [id number] 1mg Take 1 U nivers 1 mg tablet 0-03 tablet by ity of 00:00: mouth in [place] 00 the Medical morning. Branch lisinopriL 2021-09 Yes [id number] 40mg Take 1 U nivers 40 mg 0-03 tablet by ity of tablet 00:00: mouth in [place] 00 the Medical morning. Branch traZODone 2021-09 Yes [id number] 50mg Take 1 Un luis 50 mg 0-03 tablet by ity of tablet 00:00: mouth at [place] 00 bedtime. Medical Branch venlafaxine 2021-09 Yes [id number] 75mg Take 1 [facility] XR 75 mg 24 0-03 capsule by it y of hr capsule 00:00: mouth [place] 00 daily with Medical breakfast. Branch clonazePAM 2021-09 Yes [id number] 1mg Take 1 U nivers 1 mg tablet 0-03 tablet by ity of 00:00: mouth in [place] the Medical morning. Branch lisinopriL 2021-09 Yes [id number] 40mg Take 1 U nivers 40 mg 0-03 tablet by ity of tablet 00:00: mouth in [place] the Medical morning. Branch traZODone 2021-09 Yes [id number] 50mg Take 1 Un luis 50 mg 0-03 tablet by ity of tablet 00:00: mouth at [place] [address] bedtime. Medical Branch venlafaxine 2021-09 Yes [id number] 75mg Take 1 [facility] XR 75 mg 24 0-03 capsule by it y of hr capsule 00:00: mouth [place] 00 daily with Medical breakfast. Branch clonazePAM 2021-09 Yes [id number] 1mg Take 1 U nivers 1 mg tablet 0-03 tablet by ity of 00:00: mouth in [place] the Medical morning. Branch lisinopriL 2021-09 Yes [id number] 40mg Take 1 [facility] 40 mg 0-03 tablet by [facility] tablet 00:00: mouth in [place] 00 the Medical morning. Branch traZODone 2021-09 Yes [id number] 50mg Take 1 [facility] 50 mg 0-03 tablet by [facility] of tablet 00:00: mouth at [place] [id number] bedtime. Medical Branch venlafaxine 2021-09 Yes [id number] 75mg Take 1 [facility] 75 mg 24 0-03 capsule by [facility] y of hr capsule 00:00: mouth [place] 00 daily with Medical breakfast. Branch clonazePAM 2021-09 Yes [id number] 1mg Take 1 [facility] 1 mg tablet 0-03 tablet by [facility] of 00:00: mouth in [place] 00 the Medical morning. Branch lisinopriL 2021-09 Yes [id number] 40mg Take 1 [facility] 40 mg 0-03 tablet by [facility] tablet 00:00: mouth in [place] 00 the Medical morning. Branch traZODone 2021-09 Yes [id number] 50mg Take 1 [facility] 50 mg 0-03 tablet by [facility] tablet 00:00: mouth at [place] 00 bedtime. Medical Branch venlafaxine 2021-09 Yes [id number] 75mg Take 1 [facility] 75 mg 24 0-03 capsule by [facility] of hr capsule 00:00: mouth [place] 00 daily with Medical breakfast. Branch clonazePAM 2021-09 Yes [id number] 1mg Take 1 [facility] 1 mg tablet 0-03 tablet by [facility] of 00:00: mouth in [place] the Medical morning. Branch lisinopriL 2021-09 Yes [id number] 40mg Take 1 [facility] 40 mg 0-03 tablet by [facility] tablet 00:00: mouth in [place] the Medical morning. Branch traZODone 2021-09 Yes [id number] 50mg Take 1 [facility] 50 mg 0-03 tablet by [facility] tablet 00:00: mouth at [place] 00 bedtime. Medical Branch venlafaxine 2021-09 Yes [id number] 75mg Take 1 [facility] 75 mg 24 0-03 capsule by [facility] of hr capsule 00:00: mouth [place] 00 daily with Medical breakfast. Branch clonazePAM 2021-09 Yes [id number] 1mg Take 1 [facility] 1 mg tablet 0-03 tablet by [facility] of 00:00: mouth in [place] 00 the Medical morning. Branch lisinopriL 2021-09 Yes [id number] 40mg Take 1 [facility] 40 mg 0-03 tablet by [facility] tablet 00:00: mouth in [place] 00 the Medical morning. Branch traZODone 2021- Yes [id number] 50mg Take 1 [facility] 50 mg 0-03 tablet by [facility] tablet 00:00: mouth at [place] 00 bedtime. Medical Branch venlafaxine 2021-09 Yes [id number] 75mg Take 1 [facility] 75 mg 24 0-03 capsule by [facility] y of hr capsule 00:00: mouth [place] 00 daily with Medical breakfast. Branch clonazePAM 2021-09 Yes [id number] 1mg Take 1 [facility] 1 mg tablet 0-03 tablet by [facility] of 00:00: mouth in [place] 00 the Medical morning. Branch lisinopriL 2021-09 Yes [id number] 40mg Take 1 [facility] 40 mg 0-03 tablet by [facility] tablet 00:00: mouth in [place] 00 the Medical morning. Branch traZODone 2021-09 Yes [id number] 50mg Take 1 [facility] 50 mg 0-03 tablet by [facility] tablet 00:00: mouth at [place] 00 bedtime. Medical Branch venlafaxine 2021-09 Yes [id number] 75mg Take 1 [facility] 75 mg 24 0-03 capsule by [facility] of hr capsule 00:00: mouth [place] 00 daily with Medical breakfast. Branch clonazePAM 2021-09 Yes [id number] 1mg Take 1 [facility] 1 mg tablet 0-03 tablet by [facility] of 00:00: mouth in [place] the Medical morning. Branch lisinopriL 2021-09 Yes [id number] 40mg Take 1 [facility] 40 mg 0-03 tablet by [facility] tablet 00:00: mouth in [place] the Medical morning. Branch traZODone 2021-09 Yes [id number] 50mg Take 1 [facility] 50 mg 0-03 tablet by [facility] tablet 00:00: mouth at [place] 00 bedtime. Medical Branch venlafaxine 2021-09 Yes [id number] 75mg Take 1 [facility] 75 mg 24 0-03 capsule by [facility] y of hr capsule 00:00: mouth [place] 00 daily with Medical breakfast. Branch clonazePAM 2021-09 Yes [id number] 1mg Take 1 [facility] 1 mg tablet 0-03 tablet by [facility] of 00:00: mouth in [place] 00 the Medical morning. Branch lisinopriL 2021-09 Yes [id number] 40mg Take 1 [facility] 40 mg 0-03 tablet by [facility] tablet 00:00: mouth in [place] 00 the Medical morning. Branch traZODone 2021-09 Yes [id number] 50mg Take 1 [facility] 50 mg 0-03 tablet by [facility] tablet 00:00: mouth at [place] 00 bedtime. Medical Branch venlafaxine 2021-09 Yes [id number] 75mg Take 1 [facility] 75 mg 24 0-03 capsule by [facility] y of hr capsule 00:00: mouth [place] 00 daily with Medical breakfast. Branch clonazePAM 2021-09 Yes [id number] 1mg Take 1 [facility] 1 mg tablet 0-03 tablet by [facility] of 00:00: mouth in [place] 00 the Medical morning. Branch lisinopriL 2021-09 Yes [id number] 40mg Take 1 [facility] 40 mg 0-03 tablet by [facility] tablet 00:00: mouth in [place] 00 the Medical morning. Branch traZODone 2021-09 Yes [id number] 50mg Take 1 [facility] 50 mg 0-03 tablet by [facility] tablet 00:00: mouth at [place] 00 bedtime. Medical Branch venlafaxine 2021-09 Yes [id number] 75mg Take 1 [facility] 75 mg 24 0-03 capsule by [facility] y of hr capsule 00:00: mouth [place] 00 daily with Medical breakfast. Branch clonazePAM 2021-09 Yes [id number] 1mg Take 1 [facility] 1 mg tablet 0-03 tablet by [facility] of 00:00: mouth in [place] the Medical morning. Branch lisinopriL 2021-09 Yes [id number] 40mg Take 1 [facility] 40 mg 0-03 tablet by [facility] tablet 00:00: mouth in [place] 00 the Medical morning. Branch venlafaxine 2021-09 Yes [id number] 75mg Take 1 [facility] 75 mg 24 0-03 capsule by [facility] of hr capsule 00:00: mouth [place] 00 daily with Medical breakfast. Branch clonazePAM 2021-09 Yes [id number] 1mg Take 1 [facility] 1 mg tablet 0-03 tablet by [facility] of 00:00: mouth in [place] 00 the Medical morning. Branch lisinopriL 2021-09 Yes [id number] 40mg Take 1 [facility] 40 mg 0-03 tablet by [facility] of tablet 00:00: mouth in [place] 00 the Medical morning. Branch venlafaxine 2021-09 Yes [id number] 75mg Take 1 [facility] 75 mg 24 0-03 capsule by [facility] y of hr capsule 00:00: mouth [place] 00 daily with Medical breakfast. Branch clonazePAM 2021-09 Yes [id number] 1mg Take 1 [facility] 1 mg tablet 0-03 tablet by [facility] of 00:00: mouth in [place] 00 the Medical morning. Branch lisinopriL 2021-09 Yes [id number] 40mg Take 1 [facility] 40 mg 0-03 tablet by [facility] of tablet 00:00: mouth in [place] 00 the Medical morning. Branch venlafaxine 2021-09 Yes [id number] 75mg Take 1 [facility] 75 mg 24 0-03 capsule by [facility] y of hr capsule 00:00: mouth [place] 00 daily with Medical breakfast. Branch clonazePAM 2021-09 Yes [id number] 1mg Take 1 [facility] 1 mg tablet 0-03 tablet by [facility] of 00:00: mouth in [place] 00 the Medical morning. Branch lisinopriL 2021-09 Yes [id number] 40mg Take 1 [facility] 40 mg 0-03 tablet by [facility] of tablet 00:00: mouth in [place] 00 the Medical morning. Branch venlafaxine 2021-09 Yes [id number] 75mg Take 1 [facility] 75 mg 24 0-03 capsule by [facility] of hr capsule 00:00: mouth [place] 00 daily with Medical breakfast. Branch clonazePAM 2021-09 Yes [id number] 1mg Take 1 [facility] 1 mg tablet 0-03 tablet by [facility] of 00:00: mouth in [place] 00 the Medical morning. Branch lisinopriL 2021-09 Yes [id number] 40mg Take 1 [facility] 40 mg 0-03 tablet by [facility] of tablet 00:00: mouth in [place] 00 the Medical morning. Branch venlafaxine 2021-09 Yes [id number] 75mg Take 1 [facility] 75 mg 24 0-03 capsule by [facility] of hr capsule 00:00: mouth [place] 00 daily with Medical breakfast. Branch clonazePAM 2021-09 Yes [id number] 1mg Take 1 [facility] 1 mg tablet 0-03 tablet by [facility] of 00:00: mouth in [place] 00 the Medical morning. Branch lisinopriL 2021-09 Yes [id number] 40mg Take 1 [facility] 40 mg 0-03 tablet by [facility] tablet 00:00: mouth in [place] 00 the Medical morning. Branch venlafaxine 2021-09 Yes [id number] 75mg Take 1 [facility] 75 mg 24 0-03 capsule by [facility] of hr capsule 00:00: mouth [place] 00 daily with Medical breakfast. Branch clonazePAM 2021-09 Yes [id number] 1mg Take 1 [facility] 1 mg tablet 0-03 tablet by [facility] of 00:00: mouth in [place] 00 the Medical morning. Branch lisinopriL 2021-09 Yes [id number] 40mg Take 1 [facility] 40 mg 0-03 tablet by [facility] tablet 00:00: mouth in [place] 00 the Medical morning. Branch venlafaxine 2021-09 Yes [id number] 75mg Take 1 [facility] 75 mg 24 0-03 capsule by [facility] of hr capsule 00:00: mouth [place] 00 daily with Medical breakfast. Branch clonazePAM 2021-09 Yes [id number] 1mg Take 1 [facility] 1 mg tablet 0-03 tablet by [facility] of 00:00: mouth in [place] 00 the Medical morning. Branch lisinopriL 2021-09 Yes [id number] 40mg Take 1 [facility] 40 mg 0-03 tablet by [facility] of tablet 00:00: mouth in [place] the Medical morning. Branch venlafaxine 2021-09 Yes [id number] 75mg Take 1 [facility] 75 mg 24 0-03 capsule by [facility] y of hr capsule 00:00: mouth [place] 00 daily with Medical breakfast. Branch clonazePAM 2021-09 Yes [id number] 1mg Take 1 [facility] 1 mg tablet 0-03 tablet by [facility] of 00:00: mouth in [place] 00 the Medical morning. Branch lisinopriL 2021-09 Yes [id number] 40mg Take 1 [facility] 40 mg 0-03 tablet by [facility] tablet 00:00: mouth in [place] 00 the Medical morning. Branch venlafaxine 2021-09 Yes [id number] 75mg Take 1 [facility] 75 mg 24 0-03 capsule by [facility] y of hr capsule 00:00: mouth [place] 00 daily with Medical breakfast. Branch clonazePAM 2021-09 Yes [id number] 1mg Take 1 [facility] 1 mg tablet 0-03 tablet by [facility] of 00:00: mouth in [place] 00 the Medical morning. Branch lisinopriL 2021-09 Yes [id number] 40mg Take 1 [facility] 40 mg 0-03 tablet by [facility] tablet 00:00: mouth in [place] 00 the Medical morning. Branch venlafaxine 2021-09 Yes [id number] 75mg Take 1 [facility] 75 mg 24 0-03 capsule by [facility] y of hr capsule 00:00: mouth [place] 00 daily with Medical breakfast. Branch clonazePAM 2021-09 Yes [id number] 1mg Take 1 [facility] 1 mg tablet 0-03 tablet by [facility] of 00:00: mouth in [place] 00 the Medical morning. Branch lisinopriL 2021-09 Yes [id number] 40mg Take 1 [facility] 40 mg 0-03 tablet by [facility] of tablet 00:00: mouth in [place] 00 the Medical morning. Branch venlafaxine 2021-09 Yes [id number] 75mg Take 1 [facility] 75 mg 24 0-03 capsule by [facility] of hr capsule 00:00: mouth [place] 00 daily with Medical breakfast. Branch clonazePAM 2021-09 Yes [id number] 1mg Take 1 [facility] 1 mg tablet 0-03 tablet by [facility] of 00:00: mouth in [place] 00 the Medical morning. Branch lisinopriL 2021-09 Yes [id number] 40mg Take 1 [facility] 40 mg 0-03 tablet by [facility] of tablet 00:00: mouth in [place] 00 the Medical morning. Branch venlafaxine 2021-09 Yes [id number] 75mg Take 1 [facility] 75 mg 24 0-03 capsule by [facility] y of hr capsule 00:00: mouth [place] 00 daily with Medical breakfast. Branch clonazePAM 2021-09 Yes [id number] 1mg Take 1 [facility] 1 mg tablet 0-03 tablet by [facility] of 00:00: mouth in [place] 00 the Medical morning. Branch lisinopriL 2021-09 Yes [id number] 40mg Take 1 [facility] 40 mg 0-03 tablet by [facility] of tablet 00:00: mouth in [place] 00 the Medical morning. Branch venlafaxine 2021-09 Yes [id number] 75mg Take 1 [facility] 75 mg 24 0-03 capsule by [facility] y of hr capsule 00:00: mouth [place] 00 daily with Medical breakfast. Branch clonazePAM 2021-09 Yes [id number] 1mg Take 1 [facility] 1 mg tablet 0-03 tablet by [facility] of 00:00: mouth in [place] 00 the Medical morning. Branch lisinopriL 2021-09 Yes [id number] 40mg Take 1 [facility] 40 mg 0-03 tablet by [facility] of tablet 00:00: mouth in [place] 00 the Medical morning. Branch venlafaxine 2021-09 Yes [id number] 75mg Take 1 [facility] 75 mg 24 0-03 capsule by [facility] y of hr capsule 00:00: mouth [place] 00 daily with Medical breakfast. Branch clonazePAM 2021-09 Yes [id number] 1mg Take 1 [facility] 1 mg tablet 0-03 tablet by [facility] of 00:00: mouth in [place] 00 the Medical morning. Branch lisinopriL 2021-09 Yes [id number] 40mg Take 1 [facility] 40 mg 0-03 tablet by [facility] of tablet 00:00: mouth in [place] 00 the Medical morning. Branch venlafaxine 2021-09 Yes [id number] 75mg Take 1 [facility] 75 mg 24 0-03 capsule by [facility] y of hr capsule 00:00: mouth [place] 00 daily with Medical breakfast. Branch clonazePAM 2021-09 Yes [id number] 1mg Take 1 [facility] 1 mg tablet 0-03 tablet by [facility] of 00:00: mouth in [place] 00 the Medical morning. Branch lisinopriL 2021-09 Yes [id number] 40mg Take 1 [facility] 40 mg 0-03 tablet by [facility] of tablet 00:00: mouth in [place] 00 the Medical morning. Branch venlafaxine 2021-09 Yes [id number] 75mg Take 1 [facility] 75 mg 24 0-03 capsule by [facility] y of hr capsule 00:00: mouth [place] 00 daily with Medical breakfast. Branch clonazePAM 2021-09 Yes [id number] 1mg Take 1 [facility] 1 mg tablet 0-03 tablet by [facility] of 00:00: mouth in [place] 00 the Medical morning. Branch lisinopriL 2021-09 Yes [id number] 40mg Take 1 [facility] 40 mg 0-03 tablet by [facility] of tablet 00:00: mouth in [place] 00 the Medical morning. Branch venlafaxine 2021-09 Yes [id number] 75mg Take 1 [facility] 75 mg 24 0-03 capsule by [facility] y of hr capsule 00:00: mouth [place] 00 daily with Medical breakfast. Branch clonazePAM 2021-09 Yes [id number] 1mg Take 1 [facility] 1 mg tablet 0-03 tablet by [facility] of 00:00: mouth in [place] 00 the Medical morning. Branch lisinopriL 2021-09 Yes [id number] 40mg Take 1 [facility] 40 mg 0-03 tablet by [facility] of tablet 00:00: mouth in [place] 00 the Medical morning. Branch venlafaxine 2021-09 Yes [id number] 75mg Take 1 [facility] 75 mg 24 0-03 capsule by [facility] y of hr capsule 00:00: mouth [place] 00 daily with Medical breakfast. Branch clonazePAM 2021-09 Yes [id number] 1mg Take 1 [facility] 1 mg tablet 0-03 tablet by [facility] of 00:00: mouth in [place] 00 the Medical morning. Branch lisinopriL 2021-09 Yes [id number] 40mg Take 1 [facility] 40 mg 0-03 tablet by [facility] of tablet 00:00: mouth in [place] 00 the Medical morning. Branch venlafaxine 2021-09 Yes [id number] 75mg Take 1 [facility] 75 mg 24 0-03 capsule by [facility] y of hr capsule 00:00: mouth [place] 00 daily with Medical breakfast. Branch clonazePAM 2021-09 Yes [id number] 1mg Take 1 [facility] 1 mg tablet 0-03 tablet by [facility] of 00:00: mouth in [place] the Medical morning. Branch lisinopriL 2021-09 Yes [id number] 40mg Take 1 [facility] 40 mg 0-03 tablet by [facility] of tablet 00:00: mouth in [place] the Medical morning. Branch venlafaxine 2021-09 Yes [id number] 75mg Take 1 [facility] 75 mg 24 0-03 capsule by [facility] y of hr capsule 00:00: mouth [place] 00 daily with Medical breakfast. Branch clonazePAM 2021-09 Yes [id number] 1mg Take 1 [facility] 1 mg tablet 0-03 tablet by [facility] of 00:00: mouth in [place] the Medical morning. Branch lisinopriL 2021-09 Yes [id number] 40mg Take 1 [facility] 40 mg 0-03 tablet by [facility] of tablet 00:00: mouth in [place] 00 the Medical morning. Branch venlafaxine 2021-09 Yes [id number] 75mg Take 1 [facility] 75 mg 24 0-03 capsule by [facility] y of hr capsule 00:00: mouth [place] 00 daily with Medical breakfast. Branch clonazePAM 2021-09 Yes [id number] 1mg Take 1 [facility] 1 mg tablet 0-03 tablet by [facility] of 00:00: mouth in [place] 00 the Medical morning. Branch lisinopriL 2021-09 Yes [id number] 40mg Take 1 [facility] 40 mg 0-03 tablet by [facility] of tablet 00:00: mouth in [place] 00 the Medical morning. Branch venlafaxine 2021-09 Yes [id number] 75mg Take 1 [facility] 75 mg 24 0-03 capsule by it y of hr capsule 00:00: mouth [place] 00 daily with Medical breakfast. Branch clonazePAM 2021-09 Yes [id number] 1mg Take 1 [facility] 1 mg tablet 0-03 tablet by [facility] of 00:00: mouth in [place] 00 the Medical morning. Branch lisinopriL 2021-09 Yes [id number] 40mg Take 1 [facility] 40 mg 0-03 tablet by [facility] of tablet 00:00: mouth in [place] 00 the Medical morning. Branch venlafaxine 2021-09 Yes [id number] 75mg Take 1 [facility] 75 mg 24 0-03 capsule by it y of hr capsule 00:00: mouth [place] 00 daily with Medical breakfast. Branch clonazePAM 2021-09 Yes [id number] 1mg Take 1 [facility] 1 mg tablet 0-03 tablet by [facility] of 00:00: mouth in [place] the Medical morning. Branch lisinopriL 2021-09 Yes [id number] 40mg Take 1 [facility] 40 mg 0-03 tablet by [facility] of tablet 00:00: mouth in [place] 00 the Medical morning. Branch venlafaxine 2021-09 Yes [id number] 75mg Take 1 [facility] 75 mg 24 0-03 capsule by [facility] y of hr capsule 00:00: mouth [place] 00 daily with Medical breakfast. Branch clonazePAM 2021-09 Yes [id number] 1mg Take 1 [facility] 1 mg tablet 0-03 tablet by [facility] of 00:00: mouth in [place] 00 the Medical morning. Branch lisinopriL 2021-09 Yes [id number] 40mg Take 1 [facility] 40 mg 0-03 tablet by [facility] of tablet 00:00: mouth in [place] 00 the Medical morning. Branch venlafaxine 2021-09 Yes [id number] 75mg Take 1 [facility] 75 mg 24 0-03 capsule by [facility] y of hr capsule 00:00: mouth [place] 00 daily with Medical breakfast. Branch clonazePAM 2021-09 Yes [id number] 1mg Take 1 [facility] 1 mg tablet 0-03 tablet by [facility] of 00:00: mouth in [place] 00 the Medical morning. Branch lisinopriL 2021-09 Yes [id number] 40mg Take 1 [facility] 40 mg 0-03 tablet by [facility] of tablet 00:00: mouth in [place] 00 the Medical morning. Branch venlafaxine 2021-09 Yes [id number] 75mg Take 1 [facility] 75 mg 24 0-03 capsule by it y of hr capsule 00:00: mouth [place] 00 daily with Medical breakfast. Branch clonazePAM 2021-09 Yes [id number] 1mg Take 1 [facility] 1 mg tablet 0-03 tablet by [facility] of 00:00: mouth in [place] 00 the Medical morning. Branch lisinopriL 2021-09 Yes [id number] 40mg Take 1 [facility] 40 mg 0-03 tablet by [facility] of tablet 00:00: mouth in [place] 00 the Medical morning. Branch venlafaxine 2021-09 Yes [id number] 75mg Take 1 [facility] 75 mg 24 0-03 capsule by it y of hr capsule 00:00: mouth [place] 00 daily with Medical breakfast. Branch clonazePAM 2021-09 Yes [id number] 1mg Take 1 [facility] 1 mg tablet 0-03 tablet by [facility] of 00:00: mouth in [place] the Medical morning. Branch lisinopriL 2021-09 Yes [id number] 40mg Take 1 [facility] 40 mg 0-03 tablet by [facility] of tablet 00:00: mouth in [place] the Medical morning. Branch venlafaxine 2021-09 Yes [id number] 75mg Take 1 [facility] 75 mg 24 0-03 capsule by it y of hr capsule 00:00: mouth [place] 00 daily with Medical breakfast. Branch clonazePAM 2021-09 Yes [id number] 1mg Take 1 [facility] 1 mg tablet 0-03 tablet by [facility] of 00:00: mouth in [place] the Medical morning. Branch lisinopriL 2021-09 Yes [id number] 40mg Take 1 [facility] 40 mg 0-03 tablet by [facility] of tablet 00:00: mouth in [place] 00 the Medical morning. Branch venlafaxine 2021-09 Yes [id number] 75mg Take 1 [facility] 75 mg 24 0-03 capsule by it y of hr capsule 00:00: mouth [place] 00 daily with Medical breakfast. Branch clonazePAM 2021-09 Yes [id number] 1mg Take 1 [facility] 1 mg tablet 0-03 tablet by [facility] of 00:00: mouth in [place] 00 the Medical morning. Branch lisinopriL 2021-09 Yes [id number] 40mg Take 1 [facility] 40 mg 0-03 tablet by [facility] of tablet 00:00: mouth in [place] 00 the Medical morning. Branch venlafaxine 2021-09 Yes [id number] 75mg Take 1 [facility] 75 mg 24 0-03 capsule by [facility] y of hr capsule 00:00: mouth [place] 00 daily with Medical breakfast. Branch lisinopriL 2021-09 Yes [id number] 40mg Take 1 [facility] 40 mg 0-03 tablet by [facility] of tablet 00:00: mouth in [place] 00 the Medical morning. Branch venlafaxine 2021-09 Yes [id number] 75mg Take 1 [facility] 75 mg 24 0-03 capsule by [facility] y of hr capsule 00:00: mouth [place] 00 daily with Medical breakfast. Branch lisinopriL 2021-09 Yes [id number] 40mg Take 1 [facility] 40 mg 0-03 tablet by [facility] of tablet 00:00: mouth in [place] 00 the Medical morning. Branch venlafaxine 2021-09 Yes [id number] 75mg Take 1 [facility] 75 mg 24 0-03 capsule by [facility] y of hr capsule 00:00: mouth [place] 00 daily with Medical breakfast. Branch lisinopriL 2021-09 Yes [id number] 40mg Take 1 [facility] 40 mg 0-03 tablet by [facility] of tablet 00:00: mouth in [place] 00 the Medical morning. Branch venlafaxine 2021-09 Yes [id number] 75mg Take 1 [facility] 75 mg 24 0-03 capsule by [facility] y of hr capsule 00:00: mouth [place] 00 daily with Medical breakfast. Branch lisinopriL 2021-09 Yes [id number] 40mg Take 1 [facility] 40 mg 0-03 tablet by [facility] of tablet 00:00: mouth in [place] 00 the Medical morning. Branch venlafaxine 2021-09 Yes [id number] 75mg Take 1 [facility] 75 mg 24 0-03 capsule by [facility] y of hr capsule 00:00: mouth [place] 00 daily with Medical breakfast. Branch lisinopriL 2021-09 Yes [id number] 40mg Take 1 [facility] 40 mg 0-03 tablet by [facility] of tablet 00:00: mouth in [place] 00 the Medical morning. Branch lisinopriL 2021-09 Yes [id number] 40mg Take 1 [facility] 40 mg 0-03 tablet by [facility] of tablet 00:00: mouth in [place] the Medical morning. Branch lisinopriL 2021-09 Yes [id number] 40mg Take 1 [facility] 40 mg 0-03 tablet by [facility] of tablet 00:00: mouth in [place] the Medical morning. Branch lisinopriL 2021-09 Yes [id number] 40mg Take 1 [facility] 40 mg 0-03 tablet by [facility] of tablet 00:00: mouth in [place] the Medical morning. Branch lisinopriL 2021-09 Yes [id number] 40mg Take 1 [facility] 40 mg 0-03 tablet by [facility] of tablet 00:00: mouth in [place] the Medical morning. Branch lisinopriL 2021-09 Yes [id number] 40mg Take 1 [facility] 40 mg 0-03 tablet by [facility] of tablet 00:00: mouth in [place] the Medical morning. Branch lisinopriL 2021-09 Yes [id number] 40mg Take 1 [facility] 40 mg 0-03 tablet by [facility] of tablet 00:00: mouth in [place] the Medical morning. Branch lisinopriL 2021-09 Yes [id number] 40mg Take 1 [facility] 40 mg 0-03 tablet by [facility] of tablet 00:00: mouth in [place] the Medical morning. Branch lisinopriL 2021-09 Yes [id number] 40mg Take 1 [facility] 40 mg 0-03 tablet by [facility] of tablet 00:00: mouth in [place] the Medical morning. Branch lisinopriL 2021-09 Yes [id number] 40mg Take 1 [facility] 40 mg 0-03 tablet by [facility] of tablet 00:00: mouth in [place] the Medical morning. Branch lisinopriL 2021-09 Yes [id number] 40mg Take 1 [facility] 40 mg 0-03 tablet by [facility] of tablet 00:00: mouth in [place] 00 the Medical morning. Branch lisinopriL 2021- Yes [id number] 40mg Take 1 [facility] 40 mg 0-03 tablet by [facility] of tablet 00:00: mouth in [place] 00 the Medical morning. Branch lisinopriL 2021- Yes [id number] 40mg Take 1 [facility] 40 mg 0-03 tablet by [facility] of tablet 00:00: mouth in [place] 00 the Medical morning. Branch lisinopriL 2022-1 Yes [id number] 40mg Take 1 [facility] 40 mg 0-03 tablet by [facility] of tablet 00:00: mouth in [place] 00 the Medical morning. Branch lisinopriL 2021-09 Yes [id number] 40mg Take 1 [facility] 40 mg 0-03 tablet by [facility] of tablet 00:00: mouth in [place] 00 the Medical morning. Branch lisinopriL 2021-09 Yes [id number] 40mg Take 1 [facility] 40 mg 0-03 tablet by [facility] of tablet 00:00: mouth in [place] 00 the Medical morning. Branch lisinopriL 2021-09 Yes [id number] 40mg Take 1 [facility] 40 mg 0-03 tablet by [facility] of tablet 00:00: mouth in [place] 00 the Medical morning. Branch lisinopriL 2021-09 Yes [id number] 40mg Take 1 [facility] 40 mg 0-03 tablet by [facility] of tablet 00:00: mouth in [place] 00 the Medical morning. Branch lisinopriL 2021-09 Yes [id number] 40mg Take 1 [facility] 40 mg 0-03 tablet by [facility] of tablet 00:00: mouth in [place] the Medical morning. Branch lisinopriL 2021-09 Yes [id number] 40mg Take 1 [facility] 40 mg 0-03 tablet by [facility] of tablet 00:00: mouth in [place] 00 the Medical morning. Branch lisinopriL 2021-09 Yes [id number] 40mg Take 1 [facility] 40 mg 0-03 tablet by [facility] of tablet 00:00: mouth in [place] 00 the Medical morning. Branch lisinopriL 2021-09 Yes [id number] 40mg Take 1 [facility] 40 mg 0-03 tablet by [facility] of tablet 00:00: mouth in [place] 00 the Medical morning. Branch lisinopriL 2021-09 Yes [id number] 40mg Take 1 [facility] 40 mg 0-03 tablet by [facility] of tablet 00:00: mouth in [place] 00 the Medical morning. Branch lisinopriL 2021-09 Yes [id number] 40mg Take 1 [facility] 40 mg 0-03 tablet by [facility] of tablet 00:00: mouth in [place] 00 the Medical morning. Branch lisinopriL 2021-09 Yes [id number] 40mg Take 1 [facility] 40 mg 0-03 tablet by [facility] of tablet 00:00: mouth in [place] the Medical morning. Branch lisinopriL 2021-09 Yes [id number] 40mg Take 1 [facility] 40 mg 0-03 tablet by [facility] of tablet 00:00: mouth in [place] the Medical morning. Branch lisinopriL 2021-09 Yes [id number] 40mg Take 1 [facility] 40 mg 0-03 tablet by [facility] of tablet 00:00: mouth in [place] the Medical morning. Branch lisinopriL 2021-09 Yes [id number] 40mg Take 1 [facility] 40 mg 0-03 tablet by [facility] of tablet 00:00: mouth in [place] the Medical morning. Branch lisinopriL 2021-09 Yes [id number] 40mg Take 1 [facility] 40 mg 0-03 tablet by [facility] of tablet 00:00: mouth in [place] the Medical morning. Branch lisinopriL 2021-09 Yes [id number] 40mg Take 1 [facility] 40 mg 0-03 tablet by [facility] of tablet 00:00: mouth in [place] the Medical morning. Branch lisinopriL 2021-09 Yes [id number] 40mg Take 1 [facility] 40 mg 0-03 tablet by [facility] of tablet 00:00: mouth in [place] the Medical morning. Branch lisinopriL 2021-09 Yes [id number] 40mg Take 1 [facility] 40 mg 0-03 tablet by [facility] of tablet 00:00: mouth in [place] the Medical morning. Branch lisinopriL 2021-09 Yes [id number] 40mg Take 1 [facility] 40 mg 0-03 tablet by [facility] of tablet 00:00: mouth in [place] the Medical morning. Branch lisinopriL 2021-09 Yes [id number] 40mg Take 1 [facility] 40 mg 0-03 tablet by [facility] of tablet 00:00: mouth in [place] the Medical morning. Branch lisinopriL 2021-09 Yes [id number] 40mg Take 1 [facility] 40 mg 0-03 tablet by [facility] of tablet 00:00: mouth in [place] the Medical morning. Branch lisinopriL 2021-09 Yes [id number] 40mg Take 1 [facility] 40 mg 0-03 tablet by [facility] tablet 00:00: mouth in [place] the Medical morning. Branch lisinopriL 2021-1 Yes [id number] 40mg Take 1 [facility] 40 mg 0-03 tablet by [facility] of tablet 00:00: mouth in [place] the Medical morning. Branch lisinopriL 2021-09 Yes [id number] 40mg Take 1 [facility] 40 mg 0-03 tablet by [facility] of tablet 00:00: mouth in [place] the Medical morning. Branch lisinopriL 2021-09 Yes [id number] 40mg Take 1 [facility] 40 mg 0-03 tablet by [facility] of tablet 00:00: mouth in [place] the Medical morning. Branch lisinopriL 2021-09 Yes [id number] 40mg Take 1 [facility] 40 mg 0-03 tablet by [facility] of tablet 00:00: mouth in [place] the Medical morning. Branch lisinopriL 2021-09 Yes [id number] 40mg Take 1 [facility] 40 mg 0-03 tablet by [facility] of tablet 00:00: mouth in [place] the Medical morning. Branch lisinopriL 2021-09 Yes [id number] 40mg Take 1 [facility] 40 mg 0-03 tablet by [facility] of tablet 00:00: mouth in [place] the Medical morning. Branch lisinopriL 2021-09 Yes [id number] 40mg Take 1 [facility] 40 mg 0-03 tablet by [facility] of tablet 00:00: mouth in [place] the Medical morning. Branch lisinopriL 2021-09 Yes [id number] 40mg Take 1 [facility] 40 mg 0-03 tablet by [facility] of tablet 00:00: mouth in [place] the Medical morning. Branch lisinopriL 2021-09 Yes [id number] 40mg Take 1 [facility] 40 mg 0-03 tablet by [facility] of tablet 00:00: mouth in [place] the Medical morning. Branch lisinopriL 2021-09 Yes [id number] 40mg Take 1 [facility] 40 mg 0-03 tablet by [facility] of tablet 00:00: mouth in [place] the Medical morning. Branch lisinopriL 2021-09 Yes [id number] 40mg Take 1 [facility] 40 mg 0-03 tablet by [facility] of tablet 00:00: mouth in [place] 00 the Medical morning. Branch lisinopriL 2021-09 Yes [id number] 40mg Take 1 [facility] 40 mg 0-03 tablet by [facility] of tablet 00:00: mouth in [place] 00 the Medical morning. Branch lisinopriL 2021-09 Yes [id number] 40mg Take 1 [facility] 40 mg 0-03 tablet by [facility] of tablet 00:00: mouth in [place] 00 the Medical morning. Branch lisinopriL 2021-09 Yes [id number] 40mg Take 1 [facility] 40 mg 0-03 tablet by [facility] of tablet 00:00: mouth in [place] the Medical morning. Branch lisinopriL 2021-09 Yes [id number] 40mg Take 1 [facility] 40 mg 0-03 tablet by [facility] of tablet 00:00: mouth in [place] the Medical morning. Branch lisinopriL 2021-09 Yes [id number] 40mg Take 1 [facility] 40 mg 0-03 tablet by [facility] of tablet 00:00: mouth in [place] 00 the Medical morning. Branch lisinopriL 2021-09 Yes [id number] 40mg Take 1 [facility] 40 mg 0-03 tablet by [facility] of tablet 00:00: mouth in [place] the Medical morning. Branch lisinopriL 2021-09 Yes [id number] 40mg Take 1 [facility] 40 mg 0-03 tablet by [facility] of tablet 00:00: mouth in [place] the Medical morning. Branch lisinopriL 2021-09 Yes [id number] 40mg Take 1 [facility] 40 mg 0-03 tablet by [facility] of tablet 00:00: mouth in [place] the Medical morning. Branch lisinopriL 2021-09 Yes [id number] 40mg Take 1 [facility] 40 mg 0-03 tablet by [facility] of tablet 00:00: mouth in [place] the Medical morning. Branch lisinopriL 2021- Yes [id number] 40mg Take 1 [facility] 40 mg 0-03 tablet by [facility] of tablet 00:00: mouth in [place] 00 the Medical morning. Branch lisinopriL 2021- Yes [id number] 40mg Take 1 [facility] 40 mg 0-03 tablet by [facility] of tablet 00:00: mouth in [place] 00 the Medical morning. Branch lisinopriL 2021- Yes [id number] 40mg Take 1 [facility] 40 mg 0-03 tablet by [facility] of tablet 00:00: mouth in [place] 00 the Medical morning. Branch lisinopriL 2021- Yes [id number] 40mg Take 1 [facility] 40 mg 0-03 tablet by [facility] of tablet 00:00: mouth in [place] the Medical morning. Branch lisinopriL 2021-09 Yes [id number] 40mg Take 1 [facility] 40 mg 0-03 tablet by [facility] of tablet 00:00: mouth in [place] the Medical morning. Branch lisinopriL 2021-09 Yes [id number] 40mg Take 1 [facility] 40 mg 0-03 tablet by [facility] of tablet 00:00: mouth in [place] the Medical morning. Branch lisinopriL 2021-09 Yes [id number] 40mg Take 1 [facility] 40 mg 0-03 tablet by [facility] of tablet 00:00: mouth in [place] the Medical morning. Branch lisinopriL 2021-09 Yes [id number] 40mg Take 1 [facility] 40 mg 0-03 tablet by [facility] of tablet 00:00: mouth in [place] the Medical morning. Branch lisinopriL 2021-09 Yes [id number] 40mg Take 1 [facility] 40 mg 0-03 tablet by [facility] of tablet 00:00: mouth in [place] the Medical morning. Branch lisinopriL 2021-09 Yes [id number] 40mg Take 1 [facility] 40 mg 0-03 tablet by [facility] of tablet 00:00: mouth in [place] the Medical morning. Branch lisinopriL 2021-09 Yes [id number] 40mg Take 1 [facility] 40 mg 0-03 tablet by [facility] of tablet 00:00: mouth in [place] the Medical morning. Branch lisinopriL 2021-09 Yes [id number] 40mg Take 1 [facility] 40 mg 0-03 tablet by [facility] of tablet 00:00: mouth in [place] the Medical morning. Branch lisinopriL 2021- Yes [id number] 40mg Take 1 [facility] 40 mg 0-03 tablet by [facility] of tablet 00:00: mouth in [place] the Medical morning. Branch lisinopriL 2021- Yes [id number] 40mg Take 1 [facility] 40 mg 0-03 tablet by [facility] of tablet 00:00: mouth in [place] the Medical morning. Branch lisinopriL 2021- Yes [id number] 40mg Take 1 [facility] 40 mg 0-03 tablet by [facility] of tablet 00:00: mouth in [place] the Medical morning. Branch lisinopriL 2021- Yes [id number] 40mg Take 1 [facility] 40 mg 0-03 tablet by [facility] of tablet 00:00: mouth in [place] the Medical morning. Branch lisinopriL 2021-09 Yes [id number] 40mg Take 1 [facility] 40 mg 0-03 tablet by [facility] of tablet 00:00: mouth in [place] the Medical morning. Branch lisinopriL 2021- Yes [id number] 40mg Take 1 [facility] 40 mg 0-03 tablet by [facility] of tablet 00:00: mouth in [place] the Medical morning. Branch lisinopriL 2021- Yes [id number] 40mg Take 1 [facility] 40 mg 0-03 tablet by [facility] of tablet 00:00: mouth in [place] the Medical morning. Branch lisinopriL 2021-09 Yes [id number] 40mg Take 1 [facility] 40 mg 0-03 tablet by [facility] of tablet 00:00: mouth in [place] the Medical morning. Branch lisinopriL 2021-09 Yes [id number] 40mg Take 1 [facility] 40 mg 0-03 tablet by [facility] of tablet 00:00: mouth in [place] the Medical morning. Branch lisinopriL 2021-09 Yes [id number] 40mg Take 1 [facility] 40 mg 0-03 tablet by [facility] of tablet 00:00: mouth in [place] the Medical morning. Branch lisinopriL 2021-09 Yes [id number] 40mg Take 1 [facility] 40 mg 0-03 tablet by [facility] of tablet 00:00: mouth in [place] the Medical morning. Branch lisinopriL 2021- Yes [id number] 40mg Take 1 [facility] 40 mg 0-03 tablet by [facility] of tablet 00:00: mouth in [place] the Medical morning. Branch lisinopriL 2021- Yes [id number] 40mg Take 1 [facility] 40 mg 0-03 tablet by [facility] of tablet 00:00: mouth in [place] the Medical morning. Branch lisinopriL 2021- Yes [id number] 40mg Take 1 [facility] 40 mg 0-03 tablet by [facility] of tablet 00:00: mouth in [place] the Medical morning. Branch lisinopriL 2021- Yes [id number] 40mg Take 1 [facility] 40 mg 0-03 tablet by [facility] of tablet 00:00: mouth in [place] 00 the Medical morning. Branch lisinopriL 2021-09 Yes [id number] 40mg Take 1 [facility] 40 mg 0-03 tablet by [facility] of tablet 00:00: mouth in [place] 00 the Medical morning. Branch venlafaxine 2021-09- No [id number] 75mg Take 1 [facility] XR 75 mg 24 0-03 02-06 capsule by i ty of hr capsule 00:00: 00:00 mouth [place] 00 :00 daily with Medical breakfast. Branch venlafaxine 2021-09- No [id number] 75mg Take 1 [facility] XR 75 mg 24 0-03 02-06 capsule by i ty of hr capsule 00:00: 00:00 mouth [place] 00 :00 daily with Medical breakfast. Branch venlafaxine 2021-09- No [id number] 75mg Take 1 [facility] XR 75 mg 24 0- 02-06 capsule by i ty of hr capsule 00:00: 00:00 mouth [place] 00 :00 daily with Medical breakfast. Branch clonazePAM 2021-09- No [id number] 1mg Take 1 [facility] 1 mg tablet 0 02-01 tablet by it y of 00:00: 00:00 mouth in [place] 00 :00 the Medical morning. Branch clonazePAM 2021-09- No [id number] 1mg Take 1 [facility] 1 mg tablet 0 02- tablet by it y of 00:00: 00:00 mouth in [place] 00 :00 the Medical morning. Branch traZODone 2021-09- No [id number] 50mg Take 1 [facility] 50 mg 0-03 12-05 tablet by [facility] of tablet 00:00: 00:00 mouth at [place] 00 :00 bedtime. Medical Branch traZODone 2021-09- No [id number] 50mg Take 1 [facility] 50 mg 0-03 12-05 tablet by [facility] of tablet 00:00: 00:00 mouth at [place] 00 :00 bedtime. Medical Branch traMADoL 50 2021-09- No [id number] 50mg Take 1 [facility] vers mg tablet 0-03 10-11 tablet by ity of 00:00: 04:59 mouth [place] 00 :00 every 6 Medical (six) Branch hours as needed for Pain (scale 7-10) for up to 7 days. Indication s: acute pain traMADoL 50 2021-09- No [id number] 50mg Take 1 [facility] vers mg tablet 0-03 10-11 tablet by [facility]y of 00:00: 04:59 mouth [place] 00 :00 every 6 Medical (six) Branch hours as needed for Pain (scale 7-10) for up to 7 days. Indication s: acute pain traMADoL 50 2021-09- No [id number] 50mg Take 1 [facility] vers mg tablet 0-03 10-11 tablet by ity of 00:00: 04:59 mouth [place] 00 :00 every 6 Medical (six) Branch hours as needed for Pain (scale 7-10) for up to 7 days. Indication s: acute pain traMADoL 50 2021-09- No [id number] 50mg Take 1 [facility] vers mg tablet 0-03 10-11 tablet by ity of 00:00: 04:59 mouth [place] 00 :00 every 6 Medical (six) Branch hours as needed for Pain (scale 7-10) for up to 7 days. Indication s: acute pain traMADoL 50 2021-09- No [id number] 50mg Take 1 [facility] vers mg tablet 0-03 10-11 tablet by ity of 00:00: 04:59 mouth [place] 00 :00 every 6 Medical (six) Branch hours as needed for Pain (scale 7-10) for up to 7 days. Indication s: acute pain traMADoL 50 2021-09- No [id number] 50mg Take 1 [facility] vers mg tablet 0-03 10-11 tablet by ity of 00:00: 04:59 mouth [place] 00 :00 every 6 Medical (six) Branch hours as needed for Pain (scale 7-10) for up to 7 days. Indication s: acute pain traMADoL 50 2021-09- No [id number] 50mg Take 1 [facility] vers mg tablet 0-03 10-11 tablet by ity of 00:00: 04:59 mouth [place] 00 :00 every 6 Medical (six) Branch hours as needed for Pain (scale 7-10) for up to 7 days. Indication s: acute pain traMADoL 50 2021-09- No [id number] 50mg Take 1 [facility] vers mg tablet 0-03 10-11 tablet by ity of 00:00: 04:59 mouth [place] 00 :00 every 6 Medical (six) Branch hours as needed for Pain (scale 7-10) for up to 7 days. Indication s: acute pain traMADoL 50 2021-09- No [id number] 50mg Take 1 [facility] vers mg tablet 0-03 10-11 tablet by ity of 00:00: 04:59 mouth [place] 00 :00 every 6 Medical (six) Branch hours as needed for Pain (scale 7-10) for up to 7 days. Indication s: acute pain traMADoL 50 2021-09- No [id number] 50mg Take 1 [facility] vers mg tablet 0-03 10-11 tablet by ity of 00:00: 04:59 mouth [place] 00 :00 every 6 Medical (six) Branch hours as needed for Pain (scale 7-10) for up to 7 days. Indication s: acute pain clonazePAM 2021-2021- No .5mg Take 0.5 Un luis 0.5 mg 06-18 mg by ity of tablet 13:10: 00:00 mouth 3 [place] 03 :00 (three) Medical times Branch daily. clonazePAM 2021- Yes [id number] 1mg Take 1 [facility] n[facility] 1 mg tablet 06-18 tablet by ity of 00:00: mouth in [place] 00 the Medical morning. Branch clonazePAM 2021-2021- No [id number] 1mg Take 1 [facility] 1 mg tablet 06-18 tablet by it y of 00:00: 00:00 mouth in [place] 00 :00 the Medical morning. Branch clonazePAM 2021- No [id number] 1mg Take 1 [facility] 1 mg tablet 06-18 tablet by it y of 00:00: 00:00 mouth in [place] 00 :00 the Medical morning. Branch cefdinir 2021-2021- No [id number] 300mg Take 1 [facility] 300 mg 06-10 capsule by ity of capsule 00:00: 04:59 mouth [place] 00 :00 every 12 Medical (twelve) Branch hours for 7 days. phenazopyri 2021-0 2021- No [id number] 200mg Take 1 [facility] dine 06-10 tablet by ity of (PYRIDIUM) 00:00: 04:59 mouth in [place] 200 mg 00 :00 the Medical tablet morning Branch and 1 tablet at noon and 1 tablet in the evening. Take after meals. Do all this for 2 days. lisinopriL 2021-0 Yes [id number] 40mg Take 1 [facility] 40 mg 9-16 tablet by [facility] of tablet 00:00: mouth in [place] 00 the Medical morning. Branch traZODone 2021-0 Yes [id number] 50mg Take 1 [facility] 50 mg 9-16 tablet by [facility] of tablet 00:00: mouth at [place] 00 bedtime. Medical Branch venlafaxine 2021-0 Yes [id number] 75mg Take 1 [facility] XR 75 mg 24 9-16 capsule by it y of hr capsule 00:00: mouth [place] 00 daily with Medical breakfast. Branch lisinopriL 2021-0 Yes [id number] 40mg Take 1 [facility] n[facility] 40 mg 9-16 tablet by [facility] of tablet 00:00: mouth in [place] 00 the Medical morning. Branch traZODone 2021-0 Yes [id number] 50mg Take 1 [facility] 50 mg 9-16 tablet by it[facility] of tablet 00:00: mouth at [place] 00 bedtime. Medical Branch venlafaxine 2021-0 Yes [id number] 75mg Take 1 [facility] XR 75 mg 24 9-16 capsule by it y of hr capsule 00:00: mouth [place] 00 daily with Medical breakfast. Branch lisinopriL 2021-0 2021- No [id number] 40mg Take 1 [facility] 40 mg 9-16 10-03 tablet by ity of tablet 00:00: 00:00 mouth in [place] 00 :00 the Medical morning. Branch traZODone 2021-0 2021- No [id number] 50mg Take 1 [facility] n[facility] 50 mg 9-16 10-03 tablet by ity of tablet 00:00: 00:00 mouth at [place] 00 :00 bedtime. Medical Branch venlafaxine 2021-0 2021- No [id number] 75mg Take 1 [facility] XR 75 mg 24 9-16 10-03 capsule by i ty of hr capsule 00:00: 00:00 mouth [place] 00 :00 daily with Medical breakfast. Branch lisinopriL 2021-0 2- No [id number] 40mg Take 1 [facility] 40 mg 9-16 10-03 tablet by ity of tablet 00:00: 00:00 mouth in [place] 00 :00 the Medical morning. Branch traZODone 2021-0 2021- No [id number] 50mg Take 1 [facility] nivers 50 mg 9-16 10-03 tablet by it[facility] of tablet 00:00: 00:00 mouth at [place] 00 :00 bedtime. Medical Branch venlafaxine 2021- No [id number] 75mg Take 1 [facility] XR 75 mg 06-08 capsule by i ty of hr capsule 00:00: 00:00 mouth [place] 00 :00 daily with Medical breakfast. Branch blood sugar Yes [id number] USE THREE [facility] diagnostic 9-12 TIMES ity of (TRUE 00:00: DAILY [place] METRIX 00 DIRECTED. Medical GLUCOSE DX:E11.40 Branch TEST STRIP) strip insulin Yes [id number] 80U inject 80 U nivers degludec 9-12 Units ity of (TRESIBA 00:00: [place]LE[place] 00 skin daily Medi brent U-200) 200 with Branch unit/mL (3 breakfast. mL) InPn blood sugar Yes [id number] USE THREE [facility] diagnostic 9-12 TIMES ity of (TRUE 00:00: DAILY [place] MET[facility] 00 DIRECTED. Medical GLUCOSE DX:E11.40 Branch TEST STRIP) strip insulin Yes [id number] 80U inject 80 U nivers degludec 9-12 Units ity of (TRESIBA 00:00: [place] 00 skin daily Medi brent U-200) 200 with Branch unit/mL (3 breakfast. mL) InPn blood sugar Yes [id number] USE THREE [facility] diagnostic 9-12 TIMES ity of (TRUE 00:00: DAILY [place] [facility] 00 DIRECTED. Medical GLUCOSE DX:E11.40 Branch TEST STRIP) strip insulin Yes [id number] 80U inject 80 U nivers degludec 9-12 Units ity of (TRESIBA 00:00: [place] 00 skin daily Medi brent U-200) 200 with Branch unit/mL (3 breakfast. mL) InPn blood sugar Yes [id number] USE THREE [facility] diagnostic 9-12 TIMES ity of (TRUE 00:00: DAILY [place] MET[facility] 00 DIRECTED. Medical GLUCOSE DX:E11.40 Branch TEST STRIP) strip insulin Yes [id number] 80U inject 80 U nivers degludec 9-12 Units ity of (TRESIBA 00:00: [place] 00 skin daily Medi brent U-200) 200 with Branch unit/mL (3 breakfast. mL) InPn blood sugar 0 Yes [id number] USE THREE [facility] diagnostic 9-12 TIMES ity of (TRUE 00:00: DAILY [place] MET[facility] 00 DIRECTED. Medical GLUCOSE DX:E11.40 Branch TEST STRIP) strip insulin Yes [id number] 80U inject 80 U nivers degludec 9-12 Units ity of (TRESIBA 00:00: [place] 00 skin daily Medi brent U-200) 200 with Branch unit/mL (3 breakfast. mL) InPn blood sugar 0 Yes [id number] USE THREE [facility] diagnostic 9-12 TIMES ity of (TRUE 00:00: DAILY [place] [facility] 00 DIRECTED. Medical GLUCOSE DX:E11.40 Branch TEST STRIP) strip insulin Yes [id number] 80U inject 80 U nivers degludec 9-12 Units ity of (TRESIBA 00:00: [place] 00 skin daily Medi brent U-200) 200 with Branch unit/mL (3 breakfast. mL) InPn blood sugar 0 Yes [id number] USE THREE [facility] diagnostic 9-12 TIMES ity of (TRUE 00:00: DAILY [place] MET[facility] 00 DIRECTED. Medical GLUCOSE DX:E11.40 Branch TEST STRIP) strip insulin Yes [id number] 80U inject 80 U nivers degludec 9-12 Units ity of (TRESIBA 00:00: [place] 00 skin daily Medi brent U-200) 200 with Branch unit/mL (3 breakfast. mL) InPn blood sugar 0 Yes [id number] USE THREE [facility] diagnostic 9-12 TIMES ity of (TRUE 00:00: DAILY [place] MET[facility] 00 DIRECTED. Medical GLUCOSE DX:E11.40 Branch TEST STRIP) strip insulin Yes [id number] 80U inject 80 U nivers degludec 9-12 Units ity of (TRESIBA 00:00: [place] 00 skin daily Medi brent U-200) 200 with Branch unit/mL (3 breakfast. mL) InPn blood sugar 2022-0 Yes [id number] USE THREE [facility] diagnostic 9-12 TIMES ity of (TRUE 00:00: DAILY [place] MET[facility] 00 DIRECTED. Medical GLUCOSE DX:E11.40 Branch TEST STRIP) strip insulin 2021-0 Yes [id number] 80U inject 80 U nivers degludec 9-12 Units ity of (TRESIBA 00:00: [place] 00 skin daily Medi brent U-200) 200 with Branch unit/mL (3 breakfast. mL) InPn blood sugar 2021-0 Yes [id number] USE THREE [facility] diagnostic 9-12 TIMES ity of (TRUE 00:00: DAILY [place] MET[facility] 00 DIRECTED. Medical GLUCOSE DX:E11.40 Branch TEST STRIP) strip blood sugar 2021-0 Yes [id number] USE THREE [facility] diagnostic 9-12 TIMES ity of (TRUE 00:00: DAILY [place] MET[facility] 00 DIRECTED. Medical GLUCOSE DX:E11.40 Branch TEST STRIP) strip blood sugar 2021-0 Yes [id number] USE THREE [facility] diagnostic 9-12 TIMES ity of (TRUE 00:00: DAILY [place] MET[facility] 00 DIRECTED. Medical GLUCOSE DX:E11.40 Branch TEST STRIP) strip blood sugar 2021-0 Yes [id number] USE THREE [facility] diagnostic 9-12 TIMES ity of (TRUE 00:00: DAILY [place] MET[facility] 00 DIRECTED. Medical GLUCOSE DX:E11.40 Branch TEST STRIP) strip blood sugar 2021-0 Yes [id number] USE THREE [facility] diagnostic 9-12 TIMES ity of (TRUE 00:00: DAILY [place] [facility] 00 DIRECTED. Medical GLUCOSE DX:E11.40 Branch TEST STRIP) strip blood sugar 2021-0 Yes [id number] USE THREE [facility] diagnostic 9-12 TIMES ity of (TRUE 00:00: DAILY [place] [facility] 00 DIRECTED. Medical GLUCOSE DX:E11.40 Branch TEST STRIP) strip blood sugar 2021-0 Yes [id number] USE THREE [facility] diagnostic 9-12 TIMES ity of (TRUE 00:00: DAILY [place] MET[facility] 00 DIRECTED. Medical GLUCOSE DX:E11.40 Branch TEST STRIP) strip blood sugar 2021-0 Yes [id number] USE THREE [facility] diagnostic 9-12 TIMES ity of (TRUE 00:00: DAILY [place] MET[facility] 00 DIRECTED. Medical GLUCOSE DX:E11.40 Branch TEST STRIP) strip blood sugar 2021-0 Yes [id number] USE THREE [facility] diagnostic 9-12 TIMES ity of (TRUE 00:00: DAILY [place] [facility] 00 DIRECTED. Medical GLUCOSE DX:E11.40 Branch TEST STRIP) strip blood sugar 2021-0 Yes [id number] USE THREE [facility] diagnostic 9-12 TIMES ity of (TRUE 00:00: DAILY [place] MET[facility] 00 DIRECTED. Medical GLUCOSE DX:E11.40 Branch TEST STRIP) strip blood sugar 2021-0 Yes [id number] USE THREE [facility] diagnostic 9-12 TIMES ity of (TRUE 00:00: DAILY [place] [facility] 00 DIRECTED. Medical GLUCOSE DX:E11.40 Branch TEST STRIP) strip blood sugar 2021-0 Yes [id number] USE THREE [facility] diagnostic 9-12 TIMES ity of (TRUE 00:00: DAILY [place] MET[facility] 00 DIRECTED. Medical GLUCOSE DX:E11.40 Branch TEST STRIP) strip blood sugar 2021-0 Yes [id number] USE THREE [facility] diagnostic 9-12 TIMES ity of (TRUE 00:00: DAILY [place] MET[facility] 00 DIRECTED. Medical GLUCOSE DX:E11.40 Branch TEST STRIP) strip blood sugar 2021-0 Yes [id number] USE THREE [facility] diagnostic 9-12 TIMES ity of (TRUE 00:00: DAILY [place] [facility] 00 DIRECTED. Medical GLUCOSE DX:E11.40 Branch TEST STRIP) strip blood sugar 2021-0 Yes [id number] USE THREE [facility] diagnostic 9-12 TIMES ity of (TRUE 00:00: DAILY [place] MET[facility] 00 DIRECTED. Medical GLUCOSE DX:E11.40 Branch TEST STRIP) strip blood sugar 2021-0 Yes [id number] USE THREE [facility] diagnostic 9-12 TIMES ity of (TRUE 00:00: DAILY [place] [facility] 00 DIRECTED. Medical GLUCOSE DX:E11.40 Branch TEST STRIP) strip blood sugar 2021-0 Yes [id number] USE THREE [facility] diagnostic 9-12 TIMES ity of (TRUE 00:00: DAILY [place] [facility] 00 DIRECTED. Medical GLUCOSE DX:E11.40 Branch TEST STRIP) strip blood sugar 2021-0 Yes [id number] USE THREE [facility] diagnostic 9-12 TIMES ity of (TRUE 00:00: DAILY [place] [facility] 00 DIRECTED. Medical GLUCOSE DX:E11.40 Branch TEST STRIP) strip blood sugar 2021-0 Yes [id number] USE THREE [facility] diagnostic 9-12 TIMES ity of (TRUE 00:00: DAILY [place] MET[facility] 00 DIRECTED. Medical GLUCOSE DX:E11.40 Branch TEST STRIP) strip blood sugar 2021-0 Yes [id number] USE THREE [facility] diagnostic 9-12 TIMES ity of (TRUE 00:00: DAILY [place] [facility] 00 DIRECTED. Medical GLUCOSE DX:E11.40 Branch TEST STRIP) strip blood sugar 2021-0 Yes [id number] USE THREE [facility] diagnostic 9-12 TIMES ity of (TRUE 00:00: DAILY [place] [facility] 00 DIRECTED. Medical GLUCOSE DX:E11.40 Branch TEST STRIP) strip blood sugar 2021-0 Yes [id number] USE THREE [facility] diagnostic 9-12 TIMES ity of (TRUE 00:00: DAILY [place] [facility] 00 DIRECTED. Medical GLUCOSE DX:E11.40 Branch TEST STRIP) strip blood sugar 2021-0 Yes [id number] USE THREE [facility] diagnostic 9-12 TIMES ity of (TRUE 00:00: DAILY [place] [facility] 00 DIRECTED. Medical GLUCOSE DX:E11.40 Branch TEST STRIP) strip blood sugar 2021-0 Yes [id number] USE THREE [facility] diagnostic 9-12 TIMES ity of (TRUE 00:00: DAILY [place] [facility] 00 DIRECTED. Medical GLUCOSE DX:E11.40 Branch TEST STRIP) strip blood sugar 2021-0 Yes [id number] USE THREE [facility] diagnostic 9-12 TIMES ity of (TRUE 00:00: DAILY [place] [facility] 00 DIRECTED. Medical GLUCOSE DX:E11.40 Branch TEST STRIP) strip blood sugar 2021-0 Yes [id number] USE THREE [facility] diagnostic 9-12 TIMES ity of (TRUE 00:00: DAILY [place] [facility] 00 DIRECTED. Medical GLUCOSE DX:E11.40 Branch TEST STRIP) strip blood sugar 2021-0 Yes [id number] USE THREE [facility] diagnostic 9-12 TIMES ity of (TRUE 00:00: DAILY [place] MET[facility] 00 DIRECTED. Medical GLUCOSE DX:E11.40 Branch TEST STRIP) strip blood sugar 2021-0 Yes [id number] USE THREE [facility] diagnostic 9-12 TIMES ity of (TRUE 00:00: DAILY [place] [facility] 00 DIRECTED. Medical GLUCOSE DX:E11.40 Branch TEST STRIP) strip blood sugar 2021-0 Yes [id number] USE THREE [facility] diagnostic 9-12 TIMES ity of (TRUE 00:00: DAILY [place] [facility] 00 DIRECTED. Medical GLUCOSE DX:E11.40 Branch TEST STRIP) strip blood sugar 2021-0 Yes [id number] USE THREE [facility] diagnostic 9-12 TIMES ity of (TRUE 00:00: DAILY [place] [facility] 00 DIRECTED. Medical GLUCOSE DX:E11.40 Branch TEST STRIP) strip blood sugar 2021-0 Yes [id number] USE THREE [facility] diagnostic 9-12 TIMES ity of (TRUE 00:00: DAILY [place] [facility] 00 DIRECTED. Medical GLUCOSE DX:E11.40 Branch TEST STRIP) strip blood sugar 2021-0 Yes [id number] USE THREE [facility] diagnostic 9-12 TIMES ity of (TRUE 00:00: DAILY [place] [facility] 00 DIRECTED. Medical GLUCOSE DX:E11.40 Branch TEST STRIP) strip blood sugar 2021-0 Yes [id number] USE THREE [facility] diagnostic 9-12 TIMES ity of (TRUE 00:00: DAILY [place] [facility] 00 DIRECTED. Medical GLUCOSE DX:E11.40 Branch TEST STRIP) strip blood sugar 2021-0 Yes [id number] USE THREE [facility] diagnostic 9-12 TIMES ity of (TRUE 00:00: DAILY [place] [facility] 00 DIRECTED. Medical GLUCOSE DX:E11.40 Branch TEST STRIP) strip blood sugar 2021-0 Yes [id number] USE THREE [facility] diagnostic 9-12 TIMES ity of (TRUE 00:00: DAILY [place] [facility] 00 DIRECTED. Medical GLUCOSE DX:E11.40 Branch TEST STRIP) strip blood sugar 2021-0 Yes [id number] USE THREE [facility] diagnostic 9-12 TIMES ity of (TRUE 00:00: DAILY [place] [facility] 00 DIRECTED. Medical GLUCOSE DX:E11.40 Branch TEST STRIP) strip blood sugar 2021-0 Yes [id number] USE THREE [facility] diagnostic 9-12 TIMES ity of (TRUE 00:00: DAILY [place] [facility] 00 DIRECTED. Medical GLUCOSE DX:E11.40 Branch TEST STRIP) strip blood sugar 2021-0 Yes [id number] USE THREE [facility] diagnostic 9-12 TIMES ity of (TRUE 00:00: DAILY [place] [facility] 00 DIRECTED. Medical GLUCOSE DX:E11.40 Branch TEST STRIP) strip blood sugar 2-0 Yes [id number] USE THREE [facility] diagnostic 9-12 TIMES ity of (TRUE 00:00: DAILY [place] [facility] 00 DIRECTED. Medical GLUCOSE DX:E11.40 Branch TEST STRIP) strip blood sugar 2022-0 Yes [id number] USE THREE [facility] diagnostic 9-12 TIMES ity of (TRUE 00:00: DAILY [place] [facility] 00 DIRECTED. Medical GLUCOSE DX:E11.40 Branch TEST STRIP) strip blood sugar 2022-0 Yes [id number] USE THREE [facility] diagnostic 9-12 TIMES ity of (TRUE 00:00: DAILY [place] [facility] 00 DIRECTED. Medical GLUCOSE DX:E11.40 Branch TEST STRIP) strip blood sugar 2022-0 Yes [id number] USE THREE [facility] diagnostic 9-12 TIMES ity of (TRUE 00:00: DAILY [place] [facility] 00 DIRECTED. Medical GLUCOSE DX:E11.40 Branch TEST STRIP) strip blood sugar 2-0 Yes [id number] USE THREE [facility] diagnostic 9-12 TIMES ity of (TRUE 00:00: DAILY [place] [facility] 00 DIRECTED. Medical GLUCOSE DX:E11.40 Branch TEST STRIP) strip blood sugar 2-0 Yes [id number] USE THREE [facility] diagnostic 9-12 TIMES ity of (TRUE 00:00: DAILY [place] [facility] 00 DIRECTED. Medical GLUCOSE DX:E11.40 Branch TEST STRIP) strip blood sugar 2-0 Yes [id number] USE THREE [facility] diagnostic 9-12 TIMES ity of (TRUE 00:00: DAILY [place] [facility] 00 DIRECTED. Medical GLUCOSE DX:E11.40 Branch TEST STRIP) strip blood sugar 2-0 Yes [id number] USE THREE [facility] diagnostic 9-12 TIMES ity of (TRUE 00:00: DAILY [place] [facility] 00 DIRECTED. Medical GLUCOSE DX:E11.40 Branch TEST STRIP) strip blood sugar 2022-0 Yes [id number] USE THREE [facility] diagnostic 9-12 TIMES ity of (TRUE 00:00: DAILY [place] [facility] 00 DIRECTED. Medical GLUCOSE DX:E11.40 Branch TEST STRIP) strip blood sugar 2022-0 Yes [id number] USE THREE [facility] diagnostic 9-12 TIMES ity of (TRUE 00:00: DAILY [place] [facility] 00 DIRECTED. Medical GLUCOSE DX:E11.40 Branch TEST STRIP) strip blood sugar 2022-0 Yes [id number] USE THREE [facility] diagnostic 9-12 TIMES ity of (TRUE 00:00: DAILY [place] [facility] 00 DIRECTED. Medical GLUCOSE DX:E11.40 Branch TEST STRIP) strip blood sugar 2022-0 Yes [id number] USE THREE [facility] diagnostic 9-12 TIMES ity of (TRUE 00:00: DAILY [place] [facility] 00 DIRECTED. Medical GLUCOSE DX:E11.40 Branch TEST STRIP) strip blood sugar 2-0 Yes [id number] USE THREE [facility] diagnostic 9-12 TIMES ity of (TRUE 00:00: DAILY [place] [facility] 00 DIRECTED. Medical GLUCOSE DX:E11.40 Branch TEST STRIP) strip blood sugar 2-0 Yes [id number] USE THREE [facility] diagnostic 9-12 TIMES ity of (TRUE 00:00: DAILY [place] [facility] 00 DIRECTED. Medical GLUCOSE DX:E11.40 Branch TEST STRIP) strip blood sugar 2-0 Yes [id number] USE THREE [facility] diagnostic 9-12 TIMES ity of (TRUE 00:00: DAILY [place] [facility] 00 DIRECTED. Medical GLUCOSE DX:E11.40 Branch TEST STRIP) strip blood sugar 2-0 Yes [id number] USE THREE [facility] diagnostic 9-12 TIMES ity of (TRUE 00:00: DAILY [place] [facility] 00 DIRECTED. Medical GLUCOSE DX:E11.40 Branch TEST STRIP) strip blood sugar 2-0 Yes [id number] USE THREE [facility] diagnostic 9-12 TIMES ity of (TRUE 00:00: DAILY [place] [facility] 00 DIRECTED. Medical GLUCOSE DX:E11.40 Branch TEST STRIP) strip blood sugar 2-0 Yes [id number] USE THREE [facility] diagnostic 9-12 TIMES ity of (TRUE 00:00: DAILY [place] [facility] 00 DIRECTED. Medical GLUCOSE DX:E11.40 Branch TEST STRIP) strip blood sugar 2-0 Yes [id number] USE THREE [facility] diagnostic 9-12 TIMES ity of (TRUE 00:00: DAILY [place] [facility] 00 DIRECTED. Medical GLUCOSE DX:E11.40 Branch TEST STRIP) strip blood sugar 2022-0 Yes [id number] USE THREE [facility] diagnostic 9-12 TIMES ity of (TRUE 00:00: DAILY [place] [facility] 00 DIRECTED. Medical GLUCOSE DX:E11.40 Branch TEST STRIP) strip blood sugar 2022-0 Yes [id number] USE THREE [facility] diagnostic 9-12 TIMES ity of (TRUE 00:00: DAILY [place] [facility] 00 DIRECTED. Medical GLUCOSE DX:E11.40 Branch TEST STRIP) strip blood sugar 2022-0 Yes [id number] USE THREE [facility] diagnostic 9-12 TIMES ity of (TRUE 00:00: DAILY [place] [facility] 00 DIRECTED. Medical GLUCOSE DX:E11.40 Branch TEST STRIP) strip blood sugar 2021-0 Yes [id number] USE THREE [facility] diagnostic 9-12 TIMES ity of (TRUE 00:00: DAILY [place] [facility] 00 DIRECTED. Medical GLUCOSE DX:E11.40 Branch TEST STRIP) strip blood sugar 2021-0 Yes [id number] USE THREE [facility] diagnostic 9-12 TIMES ity of (TRUE 00:00: DAILY [place] [facility] 00 DIRECTED. Medical GLUCOSE DX:E11.40 Branch TEST STRIP) strip blood sugar 2021-0 Yes [id number] USE THREE [facility] diagnostic 9-12 TIMES ity of (TRUE 00:00: DAILY [place] [facility] 00 DIRECTED. Medical GLUCOSE DX:E11.40 Branch TEST STRIP) strip blood sugar 2021-0 Yes [id number] USE THREE [facility] diagnostic 9-12 TIMES ity of (TRUE 00:00: DAILY [place] [facility] 00 DIRECTED. Medical GLUCOSE DX:E11.40 Branch TEST STRIP) strip blood sugar 2021-0 Yes [id number] USE THREE [facility] diagnostic 9-12 TIMES ity of (TRUE 00:00: DAILY [place] [facility] 00 DIRECTED. Medical GLUCOSE DX:E11.40 Branch TEST STRIP) strip blood sugar 2021-0 Yes [id number] USE THREE [facility] diagnostic 9-12 TIMES ity of (TRUE 00:00: DAILY [place] [facility] 00 DIRECTED. Medical GLUCOSE DX:E11.40 Branch TEST STRIP) strip blood sugar 2021-0 Yes [id number] USE THREE [facility] diagnostic 9-12 TIMES ity of (TRUE 00:00: DAILY [place] [facility] 00 DIRECTED. Medical GLUCOSE DX:E11.40 Branch TEST STRIP) strip blood sugar 2021-0 Yes [id number] USE THREE [facility] diagnostic 9-12 TIMES ity of (TRUE 00:00: DAILY [place] [facility] 00 DIRECTED. Medical GLUCOSE DX:E11.40 Branch TEST STRIP) strip blood sugar 2021-0 Yes [id number] USE THREE [facility] diagnostic 9-12 TIMES ity of (TRUE 00:00: DAILY [place] [facility] 00 DIRECTED. Medical GLUCOSE DX:E11.40 Branch TEST STRIP) strip blood sugar 2021-0 Yes [id number] USE THREE [facility] diagnostic 9-12 TIMES ity of (TRUE 00:00: DAILY [place] [facility] 00 DIRECTED. Medical GLUCOSE DX:E11.40 Branch TEST STRIP) strip blood sugar Yes [id number] USE THREE [facility] diagnostic 9-12 TIMES ity of (TRUE 00:00: DAILY [place] [facility] 00 DIRECTED. Medical GLUCOSE DX:E11.40 Branch TEST STRIP) strip blood sugar Yes [id number] USE THREE [facility] diagnostic 9-12 TIMES ity of (TRUE 00:00: DAILY [place] [facility] 00 DIRECTED. Medical GLUCOSE DX:E11.40 Branch TEST STRIP) strip blood sugar Yes [id number] USE THREE [facility] diagnostic 9-12 TIMES ity of (TRUE 00:00: DAILY [place] [facility] 00 DIRECTED. Medical GLUCOSE DX:E11.40 Branch TEST STRIP) strip blood sugar 3- No [id number] USE THREE [facility] diagnostic 9-12 03-06 TIMES ity of (TRUE 00:00: 00:00 DAILY [place] [facility] 00 :00 DIRECTED. Medical GLUCOSE DX:E11.40 Branch TEST STRIP) strip insulin 2021- No [id number] 80U inject 80 [facility] degludec 9-12 10-11 Units ity of (TRESIBA 00:00: 00:00 under the [place] as FLEXTOUCH 00 :00 skin daily Medi brent U-200) 200 with Branch unit/mL (3 breakfast. mL) InPn insulin 2021- No [id number] 80U inject 80 [facility] degludec 9-12 10-11 Units ity of (TRESIBA 00:00: 00:00 under the [place] as FLEXTOUCH 00 :00 skin daily Medi brent U-200) 200 with Branch unit/mL (3 breakfast. mL) InPn insulin 2021- No [id number] 80U inject 80 [facility] degludec 9-12 10-11 Units ity of (TRESIBA 00:00: 00:00 under the [place] as FLEXTOUCH 00 :00 skin daily Medi brent U-200) 200 with Branch unit/mL (3 breakfast. mL) InPn insulin 2021- No [id number] 80U inject 80 [facility] degludec 9-12 10-11 Units ity of (TRESIBA 00:00: 00:00 under the [place] as FLEXTOUCH 00 :00 skin daily Medi brent U-200) 200 with Branch unit/mL (3 breakfast. mL) InPn insulin 2021- No [id number] 80U inject 80 [facility] degludec 9-12 10-11 Units ity of (TRESIBA 00:00: 00:00 under the [place] as FLEXTOUCH 00 :00 skin daily Medi brent U-200) 200 with Branch unit/mL (3 breakfast. mL) InPn insulin 2021- No [id number] 80U inject 80 [facility] degludec 9-12 10-11 Units ity of (TRESIBA 00:00: 00:00 under the [place] as FLEXTOUCH 00 :00 skin daily Medi brent U-200) 200 with Branch unit/mL (3 breakfast. mL) InPn ezetimibe 0 Yes [id number] 10mg TAKE 1 U nivers 10 mg 9-05 TABLET BY ity of tablet 00:00: MOUTH DAILY Medical Branch ezetimibe 2021-0 Yes [id number] 10mg TAKE 1 U nivers 10 mg 9-05 TABLET BY ity of tablet 00:00: MOUTH DAILY Medical Branch ezetimibe 2021-0 Yes [id number] 10mg TAKE 1 U nivers 10 mg 9-05 TABLET BY ity of tablet 00:00: MOUTH DAILY Medical Branch ezetimibe 2021-0 Yes [id number] 10mg TAKE 1 U nivers 10 mg 9-05 TABLET BY ity of tablet 00:00: MOUTH DAILY Medical Branch ezetimibe 2-0 Yes [id number] 10mg TAKE 1 U nivers 10 mg 9-05 TABLET BY ity of tablet 00:00: MOUTH DAILY Medical Branch ezetimibe 2-0 Yes [id number] 10mg TAKE 1 U nivers 10 mg 9-05 TABLET BY ity of tablet 00:00: MOUTH [place] DAILY Medical Branch ezetimibe 2-0 Yes [id number] 10mg TAKE 1 U nivers 10 mg 9-05 TABLET BY ity of tablet 00:00: MOUTH [place] DAILY Medical Branch ezetimibe 2-0 Yes [id number] 10mg TAKE 1 U nivers 10 mg 9-05 TABLET BY ity of tablet 00:00: [facility] DAILY Medical Branch ezetimibe 2022-0 Yes [id number] 10mg TAKE 1 U nivers 10 mg 9-05 TABLET BY ity of tablet 00:00: [facility] DAILY Medical Branch ezetimibe 2022-0 Yes [id number] 10mg TAKE 1 U nivers 10 mg 9-05 TABLET BY ity of tablet 00:00: [facility] DAILY Medical Branch ezetimibe 2022-0 Yes [id number] 10mg TAKE 1 U nivers 10 mg 9-05 TABLET BY ity of tablet 00:00: [facility] DAILY Medical Branch ezetimibe 2022-0 Yes [id number] 10mg TAKE 1 U nivers 10 mg 9-05 TABLET BY ity of tablet 00:00: [facility] DAILY Medical Branch ezetimibe 2022-0 Yes [id number] 10mg TAKE 1 U nivers 10 mg 9-05 TABLET BY ity of tablet 00:00: [facility] DAILY Medical Branch ezetimibe 2022-0 Yes [id number] 10mg TAKE 1 U nivers 10 mg 9-05 TABLET BY ity of tablet 00:00: [facility] DAILY Medical Branch ezetimibe 2022-0 Yes [id number] 10mg TAKE 1 U nivers 10 mg 9-05 TABLET BY ity of tablet 00:00: [facility] DAILY Medical Branch ezetimibe 2022-0 Yes [id number] 10mg TAKE 1 U nivers 10 mg 9-05 TABLET BY ity of tablet 00:00: [facility] DAILY Medical Branch ezetimibe 2022-0 Yes [id number] 10mg TAKE 1 U nivers 10 mg 9-05 TABLET BY ity of tablet 00:00: [facility] DAILY Medical Branch ezetimibe 2022-0 Yes [id number] 10mg TAKE 1 U nivers 10 mg 9-05 TABLET BY ity of tablet 00:00: [facility] DAILY Medical Branch ezetimibe 2022-0 Yes [id number] 10mg TAKE 1 U nivers 10 mg 9-05 TABLET BY ity of tablet 00:00: [facility] DAILY Medical Branch ezetimibe 2022-0 Yes [id number] 10mg TAKE 1 U nivers 10 mg 9-05 TABLET BY ity of tablet 00:00: [facility] 00 DAILY Medical Branch ezetimibe 2022-0 Yes [id number] 10mg TAKE 1 U nivers 10 mg 9-05 TABLET BY ity of tablet 00:00: [facility] 00 DAILY Medical Branch ezetimibe 2022-0 Yes [id number] 10mg TAKE 1 U nivers 10 mg 9-05 TABLET BY ity of tablet 00:00: [facility] 00 DAILY Medical Branch ezetimibe 2022-0 Yes [id number] 10mg TAKE 1 U nivers 10 mg 9-05 TABLET BY ity of tablet 00:00: [facility] 00 DAILY Medical Branch ezetimibe 2-0 Yes [id number] 10mg TAKE 1 U nivers 10 mg 9-05 TABLET BY ity of tablet 00:00: [facility] DAILY Medical Branch ezetimibe 2022-0 Yes [id number] 10mg TAKE 1 U nivers 10 mg 9-05 TABLET BY ity of tablet 00:00: [facility] DAILY Medical Branch ezetimibe 2-0 Yes [id number] 10mg TAKE 1 U nivers 10 mg 9-05 TABLET BY ity of tablet 00:00: [facility] DAILY Medical Branch ezetimibe 2-0 Yes [id number] 10mg TAKE 1 U nivers 10 mg 9-05 TABLET BY ity of tablet 00:00: [facility] 00 DAILY Medical Branch ezetimibe 2-0 2- No [id number] 10mg TAKE 1 [facility] 10 mg 9-05 11-14 TABLET BY ity of tablet 00:00: 00:00 [facility] 00 :00 DAILY Medical Branch famotidine 2021-0 Yes 40mg Take 40 mg U nivers 40 mg 9-01 by mouth ity of tablet 14:50: in the [place] [address] morning. Medical Branch meloxicam 2021-0 Yes 15mg Take 15 mg Un luis 15 mg 9-01 by mouth ity of tablet 14:50: in the [place] [address] morning. Medical Branch carvediloL 2021-0 Yes 25mg Take 25 mg U nivers 25 mg 9-01 by mouth ity of tablet 14:50: in the [place] [address] morning Medical and 25 mg Branch in the evening. Take with meals. famotidine 2021-0 Yes 40mg Take 40 mg U nivers 40 mg 9-01 by mouth ity of tablet 14:50: in the [place] 15 morning. Medical Branch meloxicam 2022-0 Yes 15mg Take 15 mg Un luis 15 mg 9-01 by mouth ity of tablet 14:50: in the [place] 15 morning. Medical Branch carvediloL 2022-0 Yes 25mg Take 25 mg U nivers 25 mg 9-01 by mouth ity of tablet 14:50: in the [place] 15 morning Medical and 25 mg Branch in the evening. Take with meals. famotidine 2022-0 Yes 40mg Take 40 mg U nivers 40 mg 9-01 by mouth ity of tablet 14:50: in the [place] 15 morning. Medical Branch meloxicam 2022-0 Yes 15mg Take 15 mg Un luis 15 mg 9-01 by mouth ity of tablet 14:50: in the [place] 15 morning. Medical Branch carvediloL 2022-0 Yes 25mg Take 25 mg U nivers 25 mg 9-01 by mouth ity of tablet 14:50: in the [place] 15 morning Medical and 25 mg Branch in the evening. Take with meals. famotidine 2022-0 Yes 40mg Take 40 mg U nivers 40 mg 9-01 by mouth ity of tablet 14:50: in the [place] 15 morning. Medical Branch meloxicam 2022-0 Yes 15mg Take 15 mg Un luis 15 mg 9-01 by mouth ity of tablet 14:50: in the [place] 15 morning. Medical Branch carvediloL 2022-0 Yes 25mg Take 25 mg U nivers 25 mg 9-01 by mouth ity of tablet 14:50: in the [place] 15 morning Medical and 25 mg Branch in the evening. Take with meals. famotidine 2022-0 Yes 40mg Take 40 mg U nivers 40 mg 9-01 by mouth ity of tablet 14:50: in the [place] 15 morning. Medical Branch meloxicam 2022-0 Yes 15mg Take 15 mg Un luis 15 mg 9-01 by mouth ity of tablet 14:50: in the [place] 15 morning. Medical Branch carvediloL 2022-0 Yes 25mg Take 25 mg U nivers 25 mg 9-01 by mouth ity of tablet 14:50: in the [place] 15 morning Medical and 25 mg Branch in the evening. Take with meals. famotidine 2022-0 Yes 40mg Take 40 mg U nivers 40 mg 9-01 by mouth ity of tablet 14:50: in the [place] 15 morning. Medical Branch meloxicam 2022-0 Yes 15mg Take 15 mg Un luis 15 mg 9-01 by mouth ity of tablet 14:50: in the [place] 15 morning. Medical Branch carvediloL 2022-0 Yes 25mg Take 25 mg U nivers 25 mg 9-01 by mouth ity of tablet 14:50: in the [place] 15 morning Medical and 25 mg Branch in the evening. Take with meals. famotidine 2022-0 Yes 40mg Take 40 mg U nivers 40 mg 9-01 by mouth ity of tablet 14:50: in the [place] 15 morning. Medical Branch meloxicam 2022-0 Yes 15mg Take 15 mg Un luis 15 mg 9-01 by mouth ity of tablet 14:50: in the [place] 15 morning. Medical Branch carvediloL 2022-0 Yes 25mg Take 25 mg U nivers 25 mg 9-01 by mouth ity of tablet 14:50: in the [place] 15 morning Medical and 25 mg Branch in the evening. Take with meals. famotidine 2-0 Yes 40mg Take 40 mg U nivers 40 mg 9-01 by mouth ity of tablet 14:50: in the [place] 15 morning. Medical Branch meloxicam 2-0 Yes 15mg Take 15 mg Un luis 15 mg 9-01 by mouth ity of tablet 14:50: in the [place] 15 morning. Medical Branch carvediloL 2022-0 Yes 25mg Take 25 mg U nivers 25 mg 9-01 by mouth ity of tablet 14:50: in the [place] 15 morning Medical and 25 mg Branch in the evening. Take with meals. famotidine 2022-0 Yes 40mg Take 40 mg U nivers 40 mg 9-01 by mouth ity of tablet 14:50: in the [place] 15 morning. Medical Branch meloxicam 2022-0 Yes 15mg Take 15 mg Un luis 15 mg 9-01 by mouth ity of tablet 14:50: in the [place] 15 morning. Medical Branch carvediloL 2022-0 Yes 25mg Take 25 mg U nivers 25 mg 9-01 by mouth ity of tablet 14:50: in the [place] 15 morning Medical and 25 mg Branch in the evening. Take with meals. famotidine 2022-0 Yes 40mg Take 40 mg U nivers 40 mg 9-01 by mouth ity of tablet 14:50: in the [place] 15 morning. Medical Branch meloxicam 2022-0 Yes 15mg Take 15 mg Un luis 15 mg 9-01 by mouth ity of tablet 14:50: in the [place] 15 morning. Medical Branch carvediloL 2022-0 Yes 25mg Take 25 mg U nivers 25 mg 9-01 by mouth ity of tablet 14:50: in the [place] 15 morning Medical and 25 mg Branch in the evening. Take with meals. famotidine 2022-0 Yes 40mg Take 40 mg U nivers 40 mg 9-01 by mouth ity of tablet 14:50: in the [place] 15 morning. Medical Branch meloxicam 2022-0 Yes 15mg Take 15 mg Un luis 15 mg 9-01 by mouth ity of tablet 14:50: in the [place] 15 morning. Medical Branch carvediloL 2022-0 Yes 25mg Take 25 mg U nivers 25 mg 9-01 by mouth ity of tablet 14:50: in the [place] 15 morning Medical and 25 mg Branch in the evening. Take with meals. famotidine 2022-0 Yes 40mg Take 40 mg U nivers 40 mg 9-01 by mouth ity of tablet 14:50: in the [place] 15 morning. Medical Branch meloxicam 2022-0 Yes 15mg Take 15 mg Un luis 15 mg 9-01 by mouth ity of tablet 14:50: in the [place] 15 morning. Medical Branch carvediloL 2022-0 Yes 25mg Take 25 mg U nivers 25 mg 9-01 by mouth ity of tablet 14:50: in the [place] 15 morning Medical and 25 mg Branch in the evening. Take with meals. famotidine 2022-0 Yes 40mg Take 40 mg U nivers 40 mg 9-01 by mouth ity of tablet 14:50: in the [place] 15 morning. Medical Branch meloxicam 2022-0 Yes 15mg Take 15 mg Un luis 15 mg 9-01 by mouth ity of tablet 14:50: in the [place] 15 morning. Medical Branch carvediloL 2022-0 Yes 25mg Take 25 mg U nivers 25 mg 9-01 by mouth ity of tablet 14:50: in the [place] 15 morning Medical and 25 mg Branch in the evening. Take with meals. famotidine 2022-0 Yes 40mg Take 40 mg U nivers 40 mg 9-01 by mouth ity of tablet 14:50: in the [place] 15 morning. Medical Branch meloxicam 2022-0 Yes 15mg Take 15 mg Un luis 15 mg 9-01 by mouth ity of tablet 14:50: in the [place] 15 morning. Medical Branch carvediloL 2022-0 Yes 25mg Take 25 mg U nivers 25 mg 9-01 by mouth ity of tablet 14:50: in the [place] 15 morning Medical and 25 mg Branch in the evening. Take with meals. famotidine 2022-0 Yes 40mg Take 40 mg U nivers 40 mg 9-01 by mouth ity of tablet 14:50: in the [place] 15 morning. Medical Branch meloxicam 2022-0 Yes 15mg Take 15 mg Un luis 15 mg 9-01 by mouth ity of tablet 14:50: in the [place] 15 morning. Medical Branch carvediloL 2022-0 Yes 25mg Take 25 mg U nivers 25 mg 9-01 by mouth ity of tablet 14:50: in the [place] 15 morning Medical and 25 mg Branch in the evening. Take with meals. famotidine 2022-0 Yes 40mg Take 40 mg U nivers 40 mg 9-01 by mouth ity of tablet 14:50: in the [place] 15 morning. Medical Branch meloxicam 2022-0 Yes 15mg Take 15 mg Un luis 15 mg 9-01 by mouth ity of tablet 14:50: in the [place] 15 morning. Medical Branch carvediloL 2022-0 Yes 25mg Take 25 mg U nivers 25 mg 9-01 by mouth ity of tablet 14:50: in the [place] 15 morning Medical and 25 mg Branch in the evening. Take with meals. famotidine 2022-0 Yes 40mg Take 40 mg U nivers 40 mg 9-01 by mouth ity of tablet 14:50: in the [place] 15 morning. Medical Branch meloxicam 2022-0 Yes 15mg Take 15 mg Un luis 15 mg 9-01 by mouth ity of tablet 14:50: in the [place] 15 morning. Medical Branch carvediloL 2022-0 Yes 25mg Take 25 mg U nivers 25 mg 9-01 by mouth ity of tablet 14:50: in the [place] 15 morning Medical and 25 mg Branch in the evening. Take with meals. famotidine 2022-0 Yes 40mg Take 40 mg U nivers 40 mg 9-01 by mouth ity of tablet 14:50: in the [place] 15 morning. Medical Branch meloxicam 2022-0 Yes 15mg Take 15 mg Un luis 15 mg 9-01 by mouth ity of tablet 14:50: in the [place] 15 morning. Medical Branch carvediloL 2022-0 Yes 25mg Take 25 mg U nivers 25 mg 9-01 by mouth ity of tablet 14:50: in the [place] 15 morning Medical and 25 mg Branch in the evening. Take with meals. famotidine 2022-0 Yes 40mg Take 40 mg U nivers 40 mg 9-01 by mouth ity of tablet 14:50: in the [place] 15 morning. Medical Branch meloxicam 2022-0 Yes 15mg Take 15 mg Un luis 15 mg 9-01 by mouth ity of tablet 14:50: in the [place] 15 morning. Medical Branch carvediloL 2-0 Yes 25mg Take 25 mg U nivers 25 mg 9-01 by mouth ity of tablet 14:50: in the [place] 15 morning Medical and 25 mg Branch in the evening. Take with meals. famotidine 2-0 Yes 40mg Take 40 mg U nivers 40 mg 9-01 by mouth ity of tablet 14:50: in the [place] 15 morning. Medical Branch meloxicam 2022-0 Yes 15mg Take 15 mg Un luis 15 mg 9-01 by mouth ity of tablet 14:50: in the [place] 15 morning. Medical Branch carvediloL 2022-0 Yes 25mg Take 25 mg U nivers 25 mg 9-01 by mouth ity of tablet 14:50: in the [place] 15 morning Medical and 25 mg Branch in the evening. Take with meals. famotidine 2022-0 Yes 40mg Take 40 mg U nivers 40 mg 9-01 by mouth ity of tablet 14:50: in the [place] 15 morning. Medical Branch meloxicam 2022-0 Yes 15mg Take 15 mg Un luis 15 mg 9-01 by mouth ity of tablet 14:50: in the [place] 15 morning. Medical Branch carvediloL 2022-0 Yes 25mg Take 25 mg U nivers 25 mg 9-01 by mouth ity of tablet 14:50: in the [place] 15 morning Medical and 25 mg Branch in the evening. Take with meals. famotidine 2-0 Yes 40mg Take 40 mg U nivers 40 mg 9-01 by mouth ity of tablet 14:50: in the [place] 15 morning. Medical Branch meloxicam 2022-0 Yes 15mg Take 15 mg Un luis 15 mg 9-01 by mouth ity of tablet 14:50: in the [place] 15 morning. Medical Branch carvediloL 2022-0 Yes 25mg Take 25 mg U nivers 25 mg 9-01 by mouth ity of tablet 14:50: in the [place] 15 morning Medical and 25 mg Branch in the evening. Take with meals. famotidine 2-0 Yes 40mg Take 40 mg U nivers 40 mg 9-01 by mouth ity of tablet 14:50: in the [place] 15 morning. Medical Branch meloxicam 2-0 Yes 15mg Take 15 mg Un luis 15 mg 9-01 by mouth ity of tablet 14:50: in the [place] 15 morning. Medical Branch carvediloL 2-0 Yes 25mg Take 25 mg U nivers 25 mg 9-01 by mouth ity of tablet 14:50: in the [place] 15 morning Medical and 25 mg Branch in the evening. Take with meals. famotidine 2-0 Yes 40mg Take 40 mg U nivers 40 mg 9-01 by mouth ity of tablet 14:50: in the [place] 15 morning. Medical Branch meloxicam 2-0 Yes 15mg Take 15 mg Un luis 15 mg 9-01 by mouth ity of tablet 14:50: in the [place] 15 morning. Medical Branch carvediloL 2-0 Yes 25mg Take 25 mg U nivers 25 mg 9-01 by mouth ity of tablet 14:50: in the [place] 15 morning Medical and 25 mg Branch in the evening. Take with meals. famotidine 2-0 Yes 40mg Take 40 mg U nivers 40 mg 9-01 by mouth ity of tablet 14:50: in the [place] 15 morning. Medical Branch meloxicam 2022-0 Yes 15mg Take 15 mg Un luis 15 mg 9-01 by mouth ity of tablet 14:50: in the [place] 15 morning. Medical Branch carvediloL 2022-0 Yes 25mg Take 25 mg U nivers 25 mg 9-01 by mouth ity of tablet 14:50: in the [place] 15 morning Medical and 25 mg Branch in the evening. Take with meals. famotidine 2-0 Yes 40mg Take 40 mg U nivers 40 mg 9-01 by mouth ity of tablet 14:50: in the [place] 15 morning. Medical Branch meloxicam 2022-0 Yes 15mg Take 15 mg Un luis 15 mg 9-01 by mouth ity of tablet 14:50: in the [place] 15 morning. Medical Branch carvediloL 2-0 Yes 25mg Take 25 mg U nivers 25 mg 9-01 by mouth ity of tablet 14:50: in the [place] 15 morning Medical and 25 mg Branch in the evening. Take with meals. famotidine 2-0 Yes 40mg Take 40 mg U nivers 40 mg 9-01 by mouth ity of tablet 14:50: in the [place] 15 morning. Medical Branch meloxicam 2-0 Yes 15mg Take 15 mg Un luis 15 mg 9-01 by mouth ity of tablet 14:50: in the [place] [address] morning. Medical Branch carvediloL 2-0 Yes 25mg Take 25 mg U nivers 25 mg 9-01 by mouth ity of tablet 14:50: in the [place] 15 morning Medical and 25 mg Branch in the evening. Take with meals. famotidine 2-0 Yes 40mg Take 40 mg U nivers 40 mg 9-01 by mouth ity of tablet 14:50: in the [place] 15 morning. Medical Branch meloxicam 2022-0 Yes 15mg Take 15 mg Un luis 15 mg 9-01 by mouth ity of tablet 14:50: in the [place] 15 morning. Medical Branch carvediloL 2022-0 Yes 25mg Take 25 mg U nivers 25 mg 9-01 by mouth ity of tablet 14:50: in the [place] 15 morning Medical and 25 mg Branch in the evening. Take with meals. famotidine 2022-0 Yes 40mg Take 40 mg U nivers 40 mg 9-01 by mouth ity of tablet 14:50: in the [place] 15 morning. Medical Branch meloxicam 2022-0 Yes 15mg Take 15 mg Un luis 15 mg 9-01 by mouth ity of tablet 14:50: in the [place] 15 morning. Medical Branch carvediloL 2022-0 Yes 25mg Take 25 mg U nivers 25 mg 9-01 by mouth ity of tablet 14:50: in the [place] 15 morning Medical and 25 mg Branch in the evening. Take with meals. famotidine 2022-0 Yes 40mg Take 40 mg U nivers 40 mg 9-01 by mouth ity of tablet 14:50: in the [place] 15 morning. Medical Branch meloxicam 2022-0 Yes 15mg Take 15 mg Un luis 15 mg 9-01 by mouth ity of tablet 14:50: in the [place] 15 morning. Medical Branch carvediloL 2022-0 Yes 25mg Take 25 mg U nivers 25 mg 9-01 by mouth ity of tablet 14:50: in the [place] 15 morning Medical and 25 mg Branch in the evening. Take with meals. famotidine 2022-0 Yes 40mg Take 40 mg U nivers 40 mg 9-01 by mouth ity of tablet 14:50: in the [place] 15 morning. Medical Branch meloxicam 2022-0 Yes 15mg Take 15 mg Un luis 15 mg 9-01 by mouth ity of tablet 14:50: in the [place] 15 morning. Medical Branch carvediloL 2022-0 Yes 25mg Take 25 mg U nivers 25 mg 9-01 by mouth ity of tablet 14:50: in the [place] 15 morning Medical and 25 mg Branch in the evening. Take with meals. famotidine 2022-0 Yes 40mg Take 40 mg U nivers 40 mg 9-01 by mouth ity of tablet 14:50: in the [place] 15 morning. Medical Branch meloxicam 2022-0 Yes 15mg Take 15 mg Un luis 15 mg 9-01 by mouth ity of tablet 14:50: in the [place] 15 morning. Medical Branch carvediloL 2022-0 Yes 25mg Take 25 mg U nivers 25 mg 9-01 by mouth ity of tablet 14:50: in the [place] 15 morning Medical and 25 mg Branch in the evening. Take with meals. famotidine 2022-0 Yes 40mg Take 40 mg [facility] 40 mg 9-01 by mouth ity of tablet 14:50: in the [place] 15 morning. Medical Branch meloxicam 2022-0 Yes 15mg Take 15 mg [facility] 15 mg 9-01 by mouth ity of tablet 14:50: in the [place] 15 morning. Medical Branch carvediloL 2022-0 Yes 25mg Take 25 mg [facility] 25 mg 9-01 by mouth ity of tablet 14:50: in the [place] 15 morning Medical and 25 mg Branch in the evening. Take with meals. famotidine 2022-0 Yes 40mg Take 40 mg [facility] 40 mg 9-01 by mouth ity of tablet 14:50: in the [place] 15 morning. Medical Branch meloxicam 2022-0 Yes 15mg Take 15 mg [facility] 15 mg 9-01 by mouth ity of tablet 14:50: in the [place] 15 morning. Medical Branch carvediloL 2-0 Yes 25mg Take 25 mg [facility] 25 mg 9-01 by mouth ity of tablet 14:50: in the [place] 15 morning Medical and 25 mg Branch in the evening. Take with meals. famotidine 2-0 Yes 40mg Take 40 mg [facility] 40 mg 9-01 by mouth ity of tablet 14:50: in the [place] 15 morning. Medical Branch meloxicam 2-0 Yes 15mg Take 15 mg [facility] 15 mg 9-01 by mouth ity of tablet 14:50: in the [place] 15 morning. Medical Branch carvediloL 2-0 Yes 25mg Take 25 mg [facility] 25 mg 9-01 by mouth ity of tablet 14:50: in the [place] 15 morning Medical and 25 mg Branch in the evening. Take with meals. famotidine 2-0 Yes 40mg Take 40 mg [facility] 40 mg 9-01 by mouth ity of tablet 14:50: in the [place] 15 morning. Medical Branch meloxicam 2022-0 Yes 15mg Take 15 mg [facility] 15 mg 9-01 by mouth ity of tablet 14:50: in the [place] 15 morning. Medical Branch carvediloL 2022-0 Yes 25mg Take 25 mg [facility] 25 mg 9-01 by mouth ity of tablet 14:50: in the [place] 15 morning Medical and 25 mg Branch in the evening. Take with meals. famotidine 2022-0 Yes 40mg Take 40 mg [facility] 40 mg 9-01 by mouth ity of tablet 14:50: in the [place] 15 morning. Medical Branch meloxicam 2022-0 Yes 15mg Take 15 mg [facility] 15 mg 9-01 by mouth ity of tablet 14:50: in the [place] 15 morning. Medical Branch carvediloL 2022-0 Yes 25mg Take 25 mg [facility] 25 mg 9-01 by mouth ity of tablet 14:50: in the [place] 15 morning Medical and 25 mg Branch in the evening. Take with meals. famotidine 2022-0 Yes 40mg Take 40 mg [facility] 40 mg 9-01 by mouth ity of tablet 14:50: in the [place] 15 morning. Medical Branch meloxicam 2022-0 Yes 15mg Take 15 mg [facility] 15 mg 9-01 by mouth ity of tablet 14:50: in the [place] 15 morning. Medical Branch carvediloL 2022-0 Yes 25mg Take 25 mg [facility] 25 mg 9-01 by mouth ity of tablet 14:50: in the [place] 15 morning Medical and 25 mg Branch in the evening. Take with meals. famotidine 2022-0 Yes 40mg Take 40 mg [facility] 40 mg 9-01 by mouth ity of tablet 14:50: in the [place] 15 morning. Medical Branch meloxicam 2022-0 Yes 15mg Take 15 mg [facility] 15 mg 9-01 by mouth ity of tablet 14:50: in the [place] [address] morning. Medical Branch carvediloL 2022-0 Yes 25mg Take 25 mg [facility] nivers 25 mg 9-01 by mouth ity of tablet 14:50: in the [place] 15 morning Medical and 25 mg Branch in the evening. Take with meals. famotidine 2022-0 Yes 40mg Take 40 mg [facility] 40 mg 9-01 by mouth ity of tablet 14:50: in the [place] 15 morning. Medical Branch meloxicam 2022-0 Yes 15mg Take 15 mg [facility] 15 mg 9-01 by mouth ity of tablet 14:50: in the [place] 15 morning. Medical Branch carvediloL 2022-0 Yes 25mg Take 25 mg [facility] 25 mg 9-01 by mouth ity of tablet 14:50: in the [place] 15 morning Medical and 25 mg Branch in the evening. Take with meals. famotidine 2022-0 Yes 40mg Take 40 mg [facility] 40 mg 9-01 by mouth ity of tablet 14:50: in the [place] 15 morning. Medical Branch meloxicam 2022-0 Yes 15mg Take 15 mg [facility] 15 mg 9-01 by mouth ity of tablet 14:50: in the [place] 15 morning. Medical Branch carvediloL 2022-0 Yes 25mg Take 25 mg [facility] 25 mg 9-01 by mouth ity of tablet 14:50: in the [place] 15 morning Medical and 25 mg Branch in the evening. Take with meals. famotidine 2022-0 Yes 40mg Take 40 mg [facility] 40 mg 9-01 by mouth ity of tablet 14:50: in the [place] 15 morning. Medical Branch meloxicam 2022-0 Yes 15mg Take 15 mg [facility] 15 mg 9-01 by mouth ity of tablet 14:50: in the [place] 15 morning. Medical Branch carvediloL 2022-0 Yes 25mg Take 25 mg [facility] 25 mg 9-01 by mouth ity of tablet 14:50: in the [place] 15 morning Medical and 25 mg Branch in the evening. Take with meals. famotidine 2022-0 Yes 40mg Take 40 mg [facility] 40 mg 9-01 by mouth ity of tablet 14:50: in the [place] 15 morning. Medical Branch meloxicam 2022-0 Yes 15mg Take 15 mg [facility] 15 mg 9-01 by mouth ity of tablet 14:50: in the [place] 15 morning. Medical Branch carvediloL 2022-0 Yes 25mg Take 25 mg [facility] 25 mg 9-01 by mouth ity of tablet 14:50: in the [place] 15 morning Medical and 25 mg Branch in the evening. Take with meals. famotidine 2022-0 Yes 40mg Take 40 mg [facility] 40 mg 9-01 by mouth ity of tablet 14:50: in the [place] 15 morning. Medical Branch meloxicam 2022-0 Yes 15mg Take 15 mg [facility] 15 mg 9-01 by mouth ity of tablet 14:50: in the [place] 15 morning. Medical Branch carvediloL 2022-0 Yes 25mg Take 25 mg [facility] 25 mg 9-01 by mouth ity of tablet 14:50: in the [place] 15 morning Medical and 25 mg Branch in the evening. Take with meals. famotidine 2022-0 Yes 40mg Take 40 mg [facility] 40 mg 9-01 by mouth ity of tablet 14:50: in the [place] 15 morning. Medical Branch meloxicam 2022-0 Yes 15mg Take 15 mg [facility] 15 mg 9-01 by mouth ity of tablet 14:50: in the [place] 15 morning. Medical Branch carvediloL 2022-0 Yes 25mg Take 25 mg [facility] 25 mg 9-01 by mouth ity of tablet 14:50: in the [place] 15 morning Medical and 25 mg Branch in the evening. Take with meals. famotidine 2022-0 Yes 40mg Take 40 mg [facility] 40 mg 9-01 by mouth ity of tablet 14:50: in the [place] 15 morning. Medical Branch meloxicam 2022-0 Yes 15mg Take 15 mg [facility] 15 mg 9-01 by mouth ity of tablet 14:50: in the [place] 15 morning. Medical Branch carvediloL 2022-0 Yes 25mg Take 25 mg [facility] 25 mg 9-01 by mouth ity of tablet 14:50: in the [place] 15 morning Medical and 25 mg Branch in the evening. Take with meals. famotidine 2022-0 Yes 40mg Take 40 mg [facility] 40 mg 9-01 by mouth ity of tablet 14:50: in the [place] 15 morning. Medical Branch meloxicam 2022-0 Yes 15mg Take 15 mg [facility] 15 mg 9-01 by mouth ity of tablet 14:50: in the [place] 15 morning. Medical Branch carvediloL 2022-0 Yes 25mg Take 25 mg [facility] 25 mg 9-01 by mouth ity of tablet 14:50: in the [place] 15 morning Medical and 25 mg Branch in the evening. Take with meals. famotidine 2022-0 Yes 40mg Take 40 mg [facility] 40 mg 9-01 by mouth ity of tablet 14:50: in the [place] 15 morning. Medical Branch meloxicam 2022-0 Yes 15mg Take 15 mg [facility] 15 mg 9-01 by mouth ity of tablet 14:50: in the [place] 15 morning. Medical Branch carvediloL 2022-0 Yes 25mg Take 25 mg [facility] 25 mg 9-01 by mouth ity of tablet 14:50: in the [place] 15 morning Medical and 25 mg Branch in the evening. Take with meals. famotidine 2022-0 Yes 40mg Take 40 mg [facility] 40 mg 9-01 by mouth ity of tablet 14:50: in the [place] 15 morning. Medical Branch meloxicam 2022-0 Yes 15mg Take 15 mg [facility] 15 mg 9-01 by mouth ity of tablet 14:50: in the [place] 15 morning. Medical Branch carvediloL 2022-0 Yes 25mg Take 25 mg U nivers 25 mg 9-01 by mouth ity of tablet 14:50: in the [place] 15 morning Medical and 25 mg Branch in the evening. Take with meals. famotidine 2022-0 Yes 40mg Take 40 mg [facility] n[facility] 40 mg 9-01 by mouth ity of tablet 14:50: in the [place] 15 morning. Medical Branch meloxicam 2022-0 Yes 15mg Take 15 mg [facility] 15 mg 9-01 by mouth ity of tablet 14:50: in the [place] 15 morning. Medical Branch carvediloL 2022-0 Yes 25mg Take 25 mg [facility] n[facility] 25 mg 9-01 by mouth ity of tablet 14:50: in the [place] 15 morning Medical and 25 mg Branch in the evening. Take with meals. famotidine 2022-0 Yes 40mg Take 40 mg [facility] 40 mg 9-01 by mouth ity of tablet 14:50: in the [place] 15 morning. Medical Branch meloxicam 2022-0 Yes 15mg Take 15 mg [facility] 15 mg 9-01 by mouth ity of tablet 14:50: in the [place] 15 morning. Medical Branch carvediloL 2022-0 Yes 25mg Take 25 mg U nivers 25 mg 9-01 by mouth ity of tablet 14:50: in the [place] 15 morning Medical and 25 mg Branch in the evening. Take with meals. famotidine 2022-0 Yes 40mg Take 40 mg U nivers 40 mg 9-01 by mouth ity of tablet 14:50: in the [place] 15 morning. Medical Branch meloxicam 2022-0 Yes 15mg Take 15 mg Un l[facility] 15 mg 9-01 by mouth ity of tablet 14:50: in the [place] 15 morning. Medical Branch carvediloL 2022-0 Yes 25mg Take 25 mg U nivers 25 mg 9-01 by mouth ity of tablet 14:50: in the [place] 15 morning Medical and 25 mg Branch in the evening. Take with meals. famotidine 2022-0 Yes 40mg Take 40 mg U nivers 40 mg 9-01 by mouth ity of tablet 14:50: in the [place] 15 morning. Medical Branch meloxicam 2022-0 Yes 15mg Take 15 mg Un l[facility] 15 mg 9-01 by mouth ity of tablet 14:50: in the [place] 15 morning. Medical Branch carvediloL 2022-0 Yes 25mg Take 25 mg U nivers 25 mg 9-01 by mouth ity of tablet 14:50: in the [place] 15 morning Medical and 25 mg Branch in the evening. Take with meals. famotidine 2022-0 Yes 40mg Take 40 mg U nivers 40 mg 9-01 by mouth ity of tablet 14:50: in the [place] 15 morning. Medical Branch meloxicam 2022-0 Yes 15mg Take 15 mg Un luis 15 mg 9-01 by mouth ity of tablet 14:50: in the [place] 15 morning. Medical Branch carvediloL 2022-0 Yes 25mg Take 25 mg U nivers 25 mg 9-01 by mouth ity of tablet 14:50: in the [place] 15 morning Medical and 25 mg Branch in the evening. Take with meals. famotidine 2022-0 Yes 40mg Take 40 mg U nivers 40 mg 9-01 by mouth ity of tablet 14:50: in the [place] 15 morning. Medical Branch meloxicam 2022-0 Yes 15mg Take 15 mg Un luis 15 mg 9-01 by mouth ity of tablet 14:50: in the [place] 15 morning. Medical Branch carvediloL 2022-0 Yes 25mg Take 25 mg U nivers 25 mg 9-01 by mouth ity of tablet 14:50: in the [place] 15 morning Medical and 25 mg Branch in the evening. Take with meals. famotidine 2022-0 Yes 40mg Take 40 mg U nivers 40 mg 9-01 by mouth ity of tablet 14:50: in the [place] 15 morning. Medical Branch meloxicam 2022-0 Yes 15mg Take 15 mg Un luis 15 mg 9-01 by mouth ity of tablet 14:50: in the [place] 15 morning. Medical Branch carvediloL 2022-0 Yes 25mg Take 25 mg U nivers 25 mg 9-01 by mouth ity of tablet 14:50: in the [place] 15 morning Medical and 25 mg Branch in the evening. Take with meals. famotidine 2022-0 Yes 40mg Take 40 mg U nivers 40 mg 9-01 by mouth ity of tablet 14:50: in the [place] 15 morning. Medical Branch meloxicam 2022-0 Yes 15mg Take 15 mg Un luis 15 mg 9-01 by mouth ity of tablet 14:50: in the [place] 15 morning. Medical Branch carvediloL 2022-0 Yes 25mg Take 25 mg U nivers 25 mg 9-01 by mouth ity of tablet 14:50: in the [place] 15 morning Medical and 25 mg Branch in the evening. Take with meals. famotidine 2022-0 Yes 40mg Take 40 mg U nivers 40 mg 9-01 by mouth ity of tablet 14:50: in the [place] 15 morning. Medical Branch meloxicam 2022-0 Yes 15mg Take 15 mg Un luis 15 mg 9-01 by mouth ity of tablet 14:50: in the [place] 15 morning. Medical Branch carvediloL 2022-0 Yes 25mg Take 25 mg U nivers 25 mg 9-01 by mouth ity of tablet 14:50: in the [place] 15 morning Medical and 25 mg Branch in the evening. Take with meals. famotidine 2022-0 Yes 40mg Take 40 mg U nivers 40 mg 9-01 by mouth ity of tablet 14:50: in the [place] 15 morning. Medical Branch meloxicam 2022-0 Yes 15mg Take 15 mg Un luis 15 mg 9-01 by mouth ity of tablet 14:50: in the [place] 15 morning. Medical Branch carvediloL 2022-0 Yes 25mg Take 25 mg U nivers 25 mg 9-01 by mouth ity of tablet 14:50: in the [place] 15 morning Medical and 25 mg Branch in the evening. Take with meals. famotidine 2022-0 Yes 40mg Take 40 mg U nivers 40 mg 9-01 by mouth ity of tablet 14:50: in the [place] 15 morning. Medical Branch meloxicam 2022-0 Yes 15mg Take 15 mg Un luis 15 mg 9-01 by mouth ity of tablet 14:50: in the [place] 15 morning. Medical Branch carvediloL 2022-0 Yes 25mg Take 25 mg U nivers 25 mg 9-01 by mouth ity of tablet 14:50: in the [place] 15 morning Medical and 25 mg Branch in the evening. Take with meals. famotidine 2022-0 Yes 40mg Take 40 mg U nivers 40 mg 9-01 by mouth ity of tablet 14:50: in the [place] 15 morning. Medical Branch meloxicam 2022-0 Yes 15mg Take 15 mg Un luis 15 mg 9-01 by mouth ity of tablet 14:50: in the [place] 15 morning. Medical Branch carvediloL 2022-0 Yes 25mg Take 25 mg U nivers 25 mg 9-01 by mouth ity of tablet 14:50: in the [place] 15 morning Medical and 25 mg Branch in the evening. Take with meals. famotidine 2022-0 Yes 40mg Take 40 mg U nivers 40 mg 9-01 by mouth ity of tablet 14:50: in the [place] 15 morning. Medical Branch meloxicam 2022-0 Yes 15mg Take 15 mg Un luis 15 mg 9-01 by mouth ity of tablet 14:50: in the [place] 15 morning. Medical Branch carvediloL 2022-0 Yes 25mg Take 25 mg U nivers 25 mg 9-01 by mouth ity of tablet 14:50: in the [place] 15 morning Medical and 25 mg Branch in the evening. Take with meals. famotidine 2022-0 Yes 40mg Take 40 mg U nivers 40 mg 9-01 by mouth ity of tablet 14:50: in the [place] 15 morning. Medical Branch meloxicam 2022-0 Yes 15mg Take 15 mg Un luis 15 mg 9-01 by mouth ity of tablet 14:50: in the [place] 15 morning. Medical Branch carvediloL 2022-0 Yes 25mg Take 25 mg U nivers 25 mg 9-01 by mouth ity of tablet 14:50: in the [place] 15 morning Medical and 25 mg Branch in the evening. Take with meals. famotidine 2022-0 Yes 40mg Take 40 mg U nivers 40 mg 9-01 by mouth ity of tablet 14:50: in the [place] 15 morning. Medical Branch meloxicam 2022-0 Yes 15mg Take 15 mg Un luis 15 mg 9-01 by mouth ity of tablet 14:50: in the [place] 15 morning. Medical Branch carvediloL 2022-0 Yes 25mg Take 25 mg U nivers 25 mg 9-01 by mouth ity of tablet 14:50: in the [place] [address] morning Medical and 25 mg Branch in the evening. Take with meals. famotidine 0 Yes 40mg Take 40 mg U nivers 40 mg 9-01 by mouth ity of tablet 14:50: in the [place] [address] morning. Medical Branch meloxicam 0 Yes 15mg Take 15 mg Un luis 15 mg 9-01 by mouth ity of tablet 14:50: in the [place] [address] morning. Medical Branch carvediloL 0 Yes 25mg Take 25 mg U nivers 25 mg 9-01 by mouth ity of tablet 14:50: in the [place] [address] morning Medical and 25 mg Branch in the evening. Take with meals. triamcinolo Yes [id number] Apply to [facility] 05-24 area(s) ity of acetonide 00:00: once daily [place] 0.1 % cream 00 as needed Med ical for Branch Dermatitis /Rash or Itching. Nitrofurant 0 Yes [id number] 100mg Take 1 [facility] oin&Nit. 9-01 capsule by ity o f Macrocryst 00:00: mouth in [place] as (MACROBID) 00 the Medical 100 mg morning Branch capsule and 1 capsule in the evening. fluconazole 0 Yes [id number] Take one [facility] 150 mg 9-01 tablet ity of tablet 00:00: every 72H, [place] 00 if Medical symptoms Branch present, may take a third dose on day 6, Take after completion of antibiotic if yeast infection is present triamcinolo Yes [id number] Apply to [facility] 05-24 area(s) ity of acetonide 00:00: once daily [place] 0.1 % cream 00 as needed Med ical for Branch Dermatitis /Rash or Itching. Nitrofurant 2021-0 Yes [id number] 100mg Take 1 [facility] oin&Nit. 9-01 capsule by ity o f Macrocryst 00:00: mouth in [place] as (MACROBID) 00 the Medical 100 mg morning Branch capsule and 1 capsule in the evening. fluconazole 2021-0 Yes [id number] Take one [facility] 150 mg 9-01 tablet ity of tablet 00:00: every 72H, [place] 00 if Medical symptoms Branch present, may take a third dose on day 6, Take after completion of antibiotic if yeast infection is present triamcinolo 2021-0 Yes [id number] Apply to [facility] 05-24 area(s) ity of acetonide 00:00: once daily [place] 0.1 % cream 00 as needed Med ical for Branch Dermatitis /Rash or Itching. Nitrofurant 2021-0 Yes [id number] 100mg Take 1 [facility] oin&Nit. 9-01 capsule by ity o f Macrocryst 00:00: mouth in [place] as (MACROBID) 00 the Medical 100 mg morning Branch capsule and 1 capsule in the evening. fluconazole 2021-0 Yes [id number] Take one [facility] 150 mg 9-01 tablet ity of tablet 00:00: every 72H, [place] 00 if Medical symptoms Branch present, may take a third dose on day 6, Take after completion of antibiotic if yeast infection is present triamcinolo 2021-0 Yes [id number] Apply to [facility] 05-24 area(s) ity of acetonide 00:00: once daily [place] 0.1 % cream 00 as needed Med ical for Branch Dermatitis /Rash or Itching. Nitrofurant 2021-0 Yes [id number] 100mg Take 1 [facility] oin&Nit. 9-01 capsule by ity o f Macrocryst 00:00: mouth in [place] as (MACROBID) 00 the Medical 100 mg morning Branch capsule and 1 capsule in the evening. fluconazole 2021-0 Yes [id number] Take one [facility] 150 mg 9-01 tablet ity of tablet 00:00: every 72H, [place] 00 if Medical symptoms Branch present, may take a third dose on day 6, Take after completion of antibiotic if yeast infection is present triamcinolo 2021-0 Yes [id number] Apply to [facility] 05-24 area(s) ity of acetonide 00:00: once daily [place] 0.1 % cream 00 as needed Med ical for Branch Dermatitis /Rash or Itching. Nitrofurant 2021-0 Yes [id number] 100mg Take 1 [facility] oin&Nit. 9-01 capsule by ity o f Macrocryst 00:00: mouth in [place] as (MACROBID) 00 the Medical 100 mg morning Branch capsule and 1 capsule in the evening. fluconazole 2021-0 Yes [id number] Take one [facility] 150 mg 9-01 tablet ity of tablet 00:00: every 72H, [place] 00 if Medical symptoms Branch present, may take a third dose on day 6, Take after completion of antibiotic if yeast infection is present triamcinolo 2021-0 Yes [id number] Apply to [facility] 05-24 area(s) ity of acetonide 00:00: once daily [place] 0.1 % cream 00 as needed Med ical for Branch Dermatitis /Rash or Itching. Nitrofurant 2021-0 Yes [id number] 100mg Take 1 [facility] oin&Nit. 9-01 capsule by ity o f Macrocryst 00:00: mouth in [place] as (MACROBID) 00 the Medical 100 mg morning Branch capsule and 1 capsule in the evening. fluconazole 2021-0 Yes [id number] Take one [facility] 150 mg 9-01 tablet ity of tablet 00:00: every 72H, [place] 00 if Medical symptoms Branch present, may take a third dose on day 6, Take after completion of antibiotic if yeast infection is present triamcinolo 2021-0 Yes [id number] Apply to [facility] 05-24 area(s) ity of acetonide 00:00: once daily [place] 0.1 % cream 00 as needed Med ical for Branch Dermatitis /Rash or Itching. Nitrofurant 2021-0 Yes [id number] 100mg Take 1 [facility] oin&Nit. 9-01 capsule by ity o f Macrocryst 00:00: mouth in [place] as (MACROBID) 00 the Medical 100 mg morning Branch capsule and 1 capsule in the evening. fluconazole 2021-0 Yes [id number] Take one [facility] 150 mg 9-01 tablet ity of tablet 00:00: every 72H, [place] 00 if Medical symptoms Branch present, may take a third dose on day 6, Take after completion of antibiotic if yeast infection is present triamcinolo 2021-0 Yes [id number] Apply to [facility] 05-24 area(s) ity of acetonide 00:00: once daily [place] 0.1 % cream 00 as needed Med ical for Branch Dermatitis /Rash or Itching. Nitrofurant 2021-0 Yes [id number] 100mg Take 1 [facility] oin&Nit. 9-01 capsule by ity o f Macrocryst 00:00: mouth in [place] as (MACROBID) 00 the Medical 100 mg morning Branch capsule and 1 capsule in the evening. fluconazole 2021-0 Yes [id number] Take one [facility] 150 mg 9-01 tablet ity of tablet 00:00: every 72H, [place] 00 if Medical symptoms Branch present, may take a third dose on day 6, Take after completion of antibiotic if yeast infection is present triamcinolo 2021-0 Yes [id number] Apply to [facility] 05-24 area(s) ity of acetonide 00:00: once daily [place] 0.1 % cream 00 as needed Med ical for Branch Dermatitis /Rash or Itching. Nitrofurant 2021-0 Yes [id number] 100mg Take 1 [facility] oin&Nit. 9-01 capsule by ity o f Macrocryst 00:00: mouth in [facility] as (MACROBID) 00 the Medical 100 mg morning Branch capsule and 1 capsule in the evening. fluconazole 2021-0 Yes [id number] Take one [facility] 150 mg 9-01 tablet ity of tablet 00:00: every 72H, [place] 00 if Medical symptoms Branch present, may take a third dose on day 6, Take after completion of antibiotic if yeast infection is present triamcinolo 2021-0 Yes [id number] Apply to [facility] 05-24 area(s) ity of acetonide 00:00: once daily [place] 0.1 % cream 00 as needed Med ical for Branch Dermatitis /Rash or Itching. Nitrofurant 2021-0 Yes [id number] 100mg Take 1 [facility] oin&Nit. 9-01 capsule by ity o f Macrocryst 00:00: mouth in [facility] as (MACROBID) 00 the Medical 100 mg morning Branch capsule and 1 capsule in the evening. fluconazole 2021-0 Yes [id number] Take one [facility] 150 mg 9-01 tablet ity of tablet 00:00: every 72H, [place] 00 if Medical symptoms Branch present, may take a third dose on day 6, Take after completion of antibiotic if yeast infection is present triamcinolo 2021-0 Yes [id number] Apply to [facility] 05-24 area(s) ity of acetonide 00:00: once daily [place] 0.1 % cream 00 as needed Med ical for Branch Dermatitis /Rash or Itching. Nitrofurant 2021-0 Yes [id number] 100mg Take 1 [facility] oin&Nit. 9-01 capsule by ity o f [facility]rocryst 00:00: mouth in [place] as (MACROBID) 00 the Medical 100 mg morning Branch capsule and 1 capsule in the evening. fluconazole 2021-0 Yes [id number] Take one [facility] 150 mg 9-01 tablet ity of tablet 00:00: every 72H, [place] 00 if Medical symptoms Branch present, may take a third dose on day 6, Take after completion of antibiotic if yeast infection is present triamcinolo 2021-0 Yes [id number] Apply to [facility] 05-24 area(s) ity of acetonide 00:00: once daily [place] 0.1 % cream 00 as needed Med ical for Branch Dermatitis /Rash or Itching. Nitrofurant 2021-0 Yes [id number] 100mg Take 1 [facility] oin&Nit. 9-01 capsule by ity o f [facility]rocryst 00:00: mouth in [place] as (MACROBID) 00 the Medical 100 mg morning Branch capsule and 1 capsule in the evening. fluconazole 2021-0 Yes [id number] Take one [facility] 150 mg 9-01 tablet ity of tablet 00:00: every 72H, [place] 00 if Medical symptoms Branch present, may take a third dose on day 6, Take after completion of antibiotic if yeast infection is present triamcinolo 2021-0 Yes [id number] Apply to [facility] 05-24 area(s) ity of acetonide 00:00: once daily [place] 0.1 % cream 00 as needed Med ical for Branch Dermatitis /Rash or Itching. Nitrofurant 2021-0 Yes [id number] 100mg Take 1 [facility] oin&Nit. 9-01 capsule by ity o f [facility]rocryst 00:00: mouth in [place] as (MACROBID) 00 the Medical 100 mg morning Branch capsule and 1 capsule in the evening. fluconazole 2021-0 Yes [id number] Take one [facility] 150 mg 9-01 tablet ity of tablet 00:00: every 72H, [place] 00 if Medical symptoms Branch present, may take a third dose on day 6, Take after completion of antibiotic if yeast infection is present triamcinolo 2021-0 Yes [id number] Apply to [facility] 05-24 area(s) ity of acetonide 00:00: once daily [place] 0.1 % cream 00 as needed Med ical for Branch Dermatitis /Rash or Itching. Nitrofurant 2021-0 Yes [id number] 100mg Take 1 [facility] oin&Nit. 9-01 capsule by ity o f Macrocryst 00:00: mouth in [place] as (MACROBID) 00 the Medical 100 mg morning Branch capsule and 1 capsule in the evening. fluconazole 2021-0 Yes [id number] Take one [facility] 150 mg 9-01 tablet ity of tablet 00:00: every 72H, [place] 00 if Medical symptoms Branch present, may take a third dose on day 6, Take after completion of antibiotic if yeast infection is present triamcinolo 2021-0 Yes [id number] Apply to [facility] 05-24 area(s) ity of acetonide 00:00: once daily [place] 0.1 % cream 00 as needed Med ical for Branch Dermatitis /Rash or Itching. Nitrofurant 2021-0 Yes [id number] 100mg Take 1 [facility] oin&Nit. 9-01 capsule by ity o f Macrocryst 00:00: mouth in [place] as (MACROBID) 00 the Medical 100 mg morning Branch capsule and 1 capsule in the evening. fluconazole 2021-0 Yes [id number] Take one [facility] 150 mg 9-01 tablet ity of tablet 00:00: every 72H, [place] 00 if Medical symptoms Branch present, may take a third dose on day 6, Take after completion of antibiotic if yeast infection is present triamcinolo 2021-0 Yes [id number] Apply to [facility] 05-24 area(s) ity of acetonide 00:00: once daily [place] 0.1 % cream 00 as needed Med ical for Branch Dermatitis /Rash or Itching. Nitrofurant 2021-0 Yes [id number] 100mg Take 1 [facility] oin&Nit. 9-01 capsule by ity o f [facility] 00:00: mouth in [place] as (MACROBID) 00 the Medical 100 mg morning Branch capsule and 1 capsule in the evening. fluconazole 2021-0 Yes [id number] Take one [facility] 150 mg 9-01 tablet ity of tablet 00:00: every 72H, [place] 00 if Medical symptoms Branch present, may take a third dose on day 6, Take after completion of antibiotic if yeast infection is present triamcinolo 2021-0 Yes [id number] Apply to [facility] 05-24 area(s) ity of acetonide 00:00: once daily [place] 0.1 % cream 00 as needed Med ical for Branch Dermatitis /Rash or Itching. Nitrofurant 2021-0 Yes [id number] 100mg Take 1 [facility] oin&Nit. 9-01 capsule by ity o f [facility] 00:00: mouth in [place] as (MACROBID) 00 the Medical 100 mg morning Branch capsule and 1 capsule in the evening. fluconazole 2021-0 Yes [id number] Take one [facility] 150 mg 9-01 tablet ity of tablet 00:00: every 72H, [place] 00 if Medical symptoms Branch present, may take a third dose on day 6, Take after completion of antibiotic if yeast infection is present triamcinolo 2021-0 Yes [id number] Apply to [place] [address] area(s) ity of acetonide 00:00: once daily [place] 0.1 % cream 00 as needed Med ical for Branch Dermatitis /Rash or Itching. Nitrofurant 2021-0 Yes [id number] 100mg Take 1 [facility] oin&Nit. 9-01 capsule by ity o f [facility] 00:00: mouth in [place] as (MACROBID) 00 the Medical 100 mg morning Branch capsule and 1 capsule in the evening. fluconazole 2021-0 Yes [id number] Take one [facility] 150 mg 9-01 tablet ity of tablet 00:00: every 72H, [place] 00 if Medical symptoms Branch present, may take a third dose on day 6, Take after completion of antibiotic if yeast infection is present triamcinolo 2021-0 Yes [id number] Apply to [facility] area(s) ity of acetonide 00:00: once daily [place] 0.1 % cream 00 as needed Med ical for Branch Dermatitis /Rash or Itching. Nitrofurant 2021-0 Yes [id number] 100mg Take 1 [facility] oin&Nit. 9-01 capsule by ity o f [facility] 00:00: mouth in [place] as (MACROBID) 00 the Medical 100 mg morning Branch capsule and 1 capsule in the evening. fluconazole 2021-0 Yes [id number] Take one [facility] 150 mg 9-01 tablet ity of tablet 00:00: every 72H, [place] 00 if Medical symptoms Branch present, may take a third dose on day 6, Take after completion of antibiotic if yeast infection is present triamcinolo 2021-0 Yes [id number] Apply to [facility] 05-24 area(s) ity of acetonide 00:00: once daily [place] 0.1 % cream 00 as needed Med ical for Branch Dermatitis /Rash or Itching. Nitrofurant 2021-0 Yes [id number] 100mg Take 1 [facility] oin&Nit. 9-01 capsule by ity o f [facility] 00:00: mouth in [place] as (MACROBID) 00 the Medical 100 mg morning Branch capsule and 1 capsule in the evening. fluconazole 2021-0 Yes [id number] Take one [facility] 150 mg 9-01 tablet ity of tablet 00:00: every 72H, [place] 00 if Medical symptoms Branch present, may take a third dose on day 6, Take after completion of antibiotic if yeast infection is present triamcinolo 2021-0 Yes [id number] Apply to [facility] 05-24 area(s) ity of acetonide 00:00: once daily [place] 0.1 % cream 00 as needed Med ical for Branch Dermatitis /Rash or Itching. Nitrofurant 0 Yes [id number] 100mg Take 1 [facility] oin&Nit. 9-01 capsule by ity o f [facility] 00:00: mouth in [place] as (MACROBID) 00 the Medical 100 mg morning Branch capsule and 1 capsule in the evening. fluconazole 2021-0 Yes [id number] Take one [facility] 150 mg 9-01 tablet ity of tablet 00:00: every 72H, [place] 00 if Medical symptoms Branch present, may take a third dose on day 6, Take after completion of antibiotic if yeast infection is present triamcinolo 2021-0 Yes [id number] Apply to [facility] 05-24 area(s) ity of acetonide 00:00: once daily [place] 0.1 % cream 00 as needed Med ical for Branch Dermatitis /Rash or Itching. Nitrofurant 2021-0 Yes [id number] 100mg Take 1 [facility] oin&Nit. 9-01 capsule by ity o f [facility] 00:00: mouth in [place] as (MACROBID) 00 the Medical 100 mg morning Branch capsule and 1 capsule in the evening. fluconazole 2021-0 Yes [id number] Take one [facility] 150 mg 9-01 tablet ity of tablet 00:00: every 72H, [place] 00 if Medical symptoms Branch present, may take a third dose on day 6, Take after completion of antibiotic if yeast infection is present triamcinolo 2021-0 Yes [id number] Apply to [facility] 05-24 area(s) ity of acetonide 00:00: once daily [place] 0.1 % cream 00 as needed Med ical for Branch Dermatitis /Rash or Itching. Nitrofurant 2021-0 Yes [id number] 100mg Take 1 [facility] oin&Nit. 9-01 capsule by ity o f [facility] 00:00: mouth in [place] as (MACROBID) 00 the Medical 100 mg morning Branch capsule and 1 capsule in the evening. fluconazole 2021-0 Yes [id number] Take one [facility] 150 mg 9-01 tablet ity of tablet 00:00: every 72H, [place] 00 if Medical symptoms Branch present, may take a third dose on day 6, Take after completion of antibiotic if yeast infection is present triamcinolo 2021-0 Yes [id number] Apply to [facility] 05-24 area(s) ity of acetonide 00:00: once daily [place] 0.1 % cream 00 as needed Med ical for Branch Dermatitis /Rash or Itching. Nitrofurant 2021-0 Yes [id number] 100mg Take 1 [facility] oin&Nit. 9-01 capsule by ity o f [facility] 00:00: mouth in [place] as (MACROBID) 00 the Medical 100 mg morning Branch capsule and 1 capsule in the evening. fluconazole 2021-0 Yes [id number] Take one [facility] 150 mg 9-01 tablet ity of tablet 00:00: every 72H, [place] 00 if Medical symptoms Branch present, may take a third dose on day 6, Take after completion of antibiotic if yeast infection is present triamcinolo 2021-0 Yes [id number] Apply to [facility] 05-24 area(s) ity of acetonide 00:00: once daily [place] 0.1 % cream 00 as needed Med ical for Branch Dermatitis /Rash or Itching. Nitrofurant 2021-0 Yes [id number] 100mg Take 1 [facility] oin&Nit. 9-01 capsule by ity o f [facility] 00:00: mouth in [place] as (MACROBID) 00 the Medical 100 mg morning Branch capsule and 1 capsule in the evening. fluconazole 2021-0 Yes [id number] Take one [facility] 150 mg 9-01 tablet ity of tablet 00:00: every 72H, [place] 00 if Medical symptoms Branch present, may take a third dose on day 6, Take after completion of antibiotic if yeast infection is present triamcinolo 2021-0 Yes [id number] Apply to [facility] 05-24 area(s) ity of acetonide 00:00: once daily [place] 0.1 % cream 00 as needed Med ical for Branch Dermatitis /Rash or Itching. Nitrofurant 2021-0 Yes [id number] 100mg Take 1 [facility] oin&Nit. 9-01 capsule by ity o f [facility] 00:00: mouth in [place] as (MACROBID) 00 the Medical 100 mg morning Branch capsule and 1 capsule in the evening. fluconazole 2021-0 Yes [id number] Take one [facility] 150 mg 9-01 tablet ity of tablet 00:00: every 72H, [place] 00 if Medical symptoms Branch present, may take a third dose on day 6, Take after completion of antibiotic if yeast infection is present triamcinolo 2021-0 Yes [id number] Apply to [facility] 05-24 area(s) ity of acetonide 00:00: once daily [place] 0.1 % cream 00 as needed Med ical for Branch Dermatitis /Rash or Itching. Nitrofurant Yes [id number] 100mg Take 1 [facility] oin&Nit. 9-01 capsule by ity o f [facility] 00:00: mouth in [place] as (MACROBID) 00 the Medical 100 mg morning Branch capsule and 1 capsule in the evening. fluconazole 2021-0 Yes [id number] Take one [facility] 150 mg 9-01 tablet ity of tablet 00:00: every 72H, [place] 00 if Medical symptoms Branch present, may take a third dose on day 6, Take after completion of antibiotic if yeast infection is present triamcinolo 2021-0 Yes [id number] Apply to [facility] 05-24 area(s) ity of acetonide 00:00: once daily [place] 0.1 % cream 00 as needed Med ical for Branch Dermatitis /Rash or Itching. Nitrofurant 2021-0 Yes [id number] 100mg Take 1 [facility] oin&Nit. 9-01 capsule by ity o f [facility] 00:00: mouth in [place] as (MACROBID) 00 the Medical 100 mg morning Branch capsule and 1 capsule in the evening. fluconazole 2021-0 Yes [id number] Take one [facility] 150 mg 9-01 tablet ity of tablet 00:00: every 72H, [place] 00 if Medical symptoms Branch present, may take a third dose on day 6, Take after completion of antibiotic if yeast infection is present triamcinolo 2021-0 Yes [id number] Apply to [facility] 05-24 area(s) ity of acetonide 00:00: once daily [place] 0.1 % cream 00 as needed Med ical for Branch Dermatitis /Rash or Itching. Nitrofurant 2021-0 Yes [id number] 100mg Take 1 [facility] oin&Nit. 9-01 capsule by ity o f [facility] 00:00: mouth in [place] as (MACROBID) 00 the Medical 100 mg morning Branch capsule and 1 capsule in the evening. fluconazole 2021-0 Yes [id number] Take one [facility] 150 mg 9-01 tablet ity of tablet 00:00: every 72H, [place] 00 if Medical symptoms Branch present, may take a third dose on day 6, Take after completion of antibiotic if yeast infection is present triamcinolo 2021-0 Yes [id number] Apply to [facility] 05-24 area(s) ity of acetonide 00:00: once daily [place] 0.1 % cream 00 as needed Med ical for Branch Dermatitis /Rash or Itching. Nitrofurant 2021-0 Yes [id number] 100mg Take 1 [facility] oin&Nit. 9-01 capsule by ity o f [facility] 00:00: mouth in [place] as (MACROBID) 00 the Medical 100 mg morning Branch capsule and 1 capsule in the evening. fluconazole 2021-0 Yes [id number] Take one [facility] 150 mg 9-01 tablet ity of tablet 00:00: every 72H, [place] 00 if Medical symptoms Branch present, may take a third dose on day 6, Take after completion of antibiotic if yeast infection is present triamcinolo 2021-0 Yes [id number] Apply to [facility] 05-24 area(s) ity of acetonide 00:00: once daily [place] 0.1 % cream 00 as needed Med ical for Branch Dermatitis /Rash or Itching. Nitrofurant 2021-0 Yes [id number] 100mg Take 1 [facility] oin&Nit. 9-01 capsule by ity o f [facility] 00:00: mouth in [place] as (MACROBID) 00 the Medical 100 mg morning Branch capsule and 1 capsule in the evening. fluconazole 2021-0 Yes [id number] Take one [facility] 150 mg 9-01 tablet ity of tablet 00:00: every 72H, [place] 00 if Medical symptoms Branch present, may take a third dose on day 6, Take after completion of antibiotic if yeast infection is present triamcinolo 2021-0 Yes [id number] Apply to [facility] 05-24 area(s) ity of acetonide 00:00: once daily [place] 0.1 % cream 00 as needed Med ical for Branch Dermatitis /Rash or Itching. Nitrofurant 0 Yes [id number] 100mg Take 1 [facility] oin&Nit. 9-01 capsule by ity o f [facility] 00:00: mouth in [place] as (MACROBID) 00 the Medical 100 mg morning Branch capsule and 1 capsule in the evening. fluconazole 2021-0 Yes [id number] Take one [facility] 150 mg 9-01 tablet ity of tablet 00:00: every 72H, [place] 00 if Medical symptoms Branch present, may take a third dose on day 6, Take after completion of antibiotic if yeast infection is present triamcinolo 2021-0 Yes [id number] Apply to [facility] 05-24 area(s) ity of acetonide 00:00: once daily [place] 0.1 % cream 00 as needed Med ical for Branch Dermatitis /Rash or Itching. Nitrofurant 2021-0 Yes [id number] 100mg Take 1 [facility] oin&Nit. 9-01 capsule by ity o f [facility] 00:00: mouth in [place] as (MACROBID) 00 the Medical 100 mg morning Branch capsule and 1 capsule in the evening. fluconazole 2021-0 Yes [id number] Take one [facility] 150 mg 9-01 tablet ity of tablet 00:00: every 72H, [place] 00 if Medical symptoms Branch present, may take a third dose on day 6, Take after completion of antibiotic if yeast infection is present triamcinolo 2021-0 Yes [id number] Apply to [facility] area(s) ity of acetonide 00:00: once daily [place] 0.1 % cream 00 as needed Med ical for Branch Dermatitis /Rash or Itching. Nitrofurant 2021-0 Yes [id number] 100mg Take 1 [facility] oin&Nit. 9-01 capsule by ity o f [facility] 00:00: mouth in [place] as (MACROBID) 00 the Medical 100 mg morning Branch capsule and 1 capsule in the evening. fluconazole 2021-0 Yes [id number] Take one [facility] 150 mg 9-01 tablet ity of tablet 00:00: every 72H, [place] 00 if Medical symptoms Branch present, may take a third dose on day 6, Take after completion of antibiotic if yeast infection is present triamcinolo 2021-0 Yes [id number] Apply to [facility] 05-24 area(s) ity of acetonide 00:00: once daily [place] 0.1 % cream 00 as needed Med ical for Branch Dermatitis /Rash or Itching. Nitrofurant 2021-0 Yes [id number] 100mg Take 1 [facility] oin&Nit. 9-01 capsule by ity o f [facility] 00:00: mouth in [place] as (MACROBID) 00 the Medical 100 mg morning Branch capsule and 1 capsule in the evening. fluconazole 2021-0 Yes [id number] Take one [facility] 150 mg 9-01 tablet ity of tablet 00:00: every 72H, [place] 00 if Medical symptoms Branch present, may take a third dose on day 6, Take after completion of antibiotic if yeast infection is present triamcinolo 2021-0 Yes [id number] Apply to [facility] 05-24 area(s) ity of acetonide 00:00: once daily [place] 0.1 % cream 00 as needed Med ical for Branch Dermatitis /Rash or Itching. Nitrofurant 2021-0 Yes [id number] 100mg Take 1 [facility] oin&Nit. 9-01 capsule by ity o f [facility] 00:00: mouth in [place] as (MACROBID) 00 the Medical 100 mg morning Branch capsule and 1 capsule in the evening. fluconazole 2021-0 Yes [id number] Take one [facility] 150 mg 9-01 tablet ity of tablet 00:00: every 72H, [place] 00 if Medical symptoms Branch present, may take a third dose on day 6, Take after completion of antibiotic if yeast infection is present triamcinolo 2021-0 Yes [id number] Apply to [facility] 05-24 area(s) ity of acetonide 00:00: once daily [place] 0.1 % cream 00 as needed Med ical for Branch Dermatitis /Rash or Itching. Nitrofurant 2021-0 Yes [id number] 100mg Take 1 [facility] oin&Nit. 9-01 capsule by ity o f [facility] 00:00: mouth in [place] as (MACROBID) 00 the Medical 100 mg morning Branch capsule and 1 capsule in the evening. fluconazole 2021- Yes [id number] Take one [facility] 150 mg 9-01 tablet ity of tablet 00:00: every 72H, [place] 00 if Medical symptoms Branch present, may take a third dose on day 6, Take after completion of antibiotic if yeast infection is present triamcinolo 2021-0 Yes [id number] Apply to [facility] 05-24 area(s) ity of acetonide 00:00: once daily [place] 0.1 % cream 00 as needed Med ical for Branch Dermatitis /Rash or Itching. Nitrofurant Yes [id number] 100mg Take 1 [facility] oin&Nit. 9-01 capsule by ity o f [facility] 00:00: mouth in [place] as (MACROBID) 00 the Medical 100 mg morning Branch capsule and 1 capsule in the evening. fluconazole 2021-0 Yes [id number] Take one [facility] 150 mg 9-01 tablet ity of tablet 00:00: every 72H, [place] 00 if Medical symptoms Branch present, may take a third dose on day 6, Take after completion of antibiotic if yeast infection is present triamcinolo 2021-0 Yes [id number] Apply to [facility] area(s) ity of acetonide 00:00: once daily [place] 0.1 % cream 00 as needed Med ical for Branch Dermatitis /Rash or Itching. Nitrofurant 2021-0 Yes [id number] 100mg Take 1 [facility] oin&Nit. 9-01 capsule by ity o f [facility] 00:00: mouth in [place] as (MACROBID) 00 the Medical 100 mg morning Branch capsule and 1 capsule in the evening. fluconazole 2021-0 Yes [id number] Take one [facility] 150 mg 9-01 tablet ity of tablet 00:00: every 72H, [place] 00 if Medical symptoms Branch present, may take a third dose on day 6, Take after completion of antibiotic if yeast infection is present triamcinolo 2021-0 Yes [id number] Apply to [place] [address] area(s) ity of acetonide 00:00: once daily [place] 0.1 % cream 00 as needed Med ical for Branch Dermatitis /Rash or Itching. Nitrofurant 2021-0 Yes [id number] 100mg Take 1 [facility] oin&Nit. 9-01 capsule by ity o f [facility] 00:00: mouth in [place] as (MACROBID) 00 the Medical 100 mg morning Branch capsule and 1 capsule in the evening. fluconazole 2021-0 Yes [id number] Take one [facility] 150 mg 9-01 tablet ity of tablet 00:00: every 72H, [place] 00 if Medical symptoms Branch present, may take a third dose on day 6, Take after completion of antibiotic if yeast infection is present triamcinolo 2021-0 Yes [id number] Apply to [place] [address] area(s) ity of acetonide 00:00: once daily [place] 0.1 % cream 00 as needed Med ical for Branch Dermatitis /Rash or Itching. Nitrofurant 2021-0 Yes [id number] 100mg Take 1 [facility] oin&Nit. 9-01 capsule by ity o f [facility] 00:00: mouth in [place] as (MACROBID) 00 the Medical 100 mg morning Branch capsule and 1 capsule in the evening. fluconazole 2021-0 Yes [id number] Take one [facility] 150 mg 9-01 tablet ity of tablet 00:00: every 72H, [place] 00 if Medical symptoms Branch present, may take a third dose on day 6, Take after completion of antibiotic if yeast infection is present triamcinolo 2021-0 Yes [id number] Apply to [facility] area(s) ity of acetonide 00:00: once daily [place] 0.1 % cream 00 as needed Med ical for Branch Dermatitis /Rash or Itching. Nitrofurant 2021-0 Yes [id number] 100mg Take 1 [facility] oin&Nit. 9-01 capsule by ity o f [facility] 00:00: mouth in [place] as (MACROBID) 00 the Medical 100 mg morning Branch capsule and 1 capsule in the evening. fluconazole 2021-0 Yes [id number] Take one [facility] 150 mg 9-01 tablet ity of tablet 00:00: every 72H, [place] 00 if Medical symptoms Branch present, may take a third dose on day 6, Take after completion of antibiotic if yeast infection is present triamcinolo 2021-0 Yes [id number] Apply to [facility] area(s) ity of acetonide 00:00: once daily [place] 0.1 % cream 00 as needed Med ical for Branch Dermatitis /Rash or Itching. Nitrofurant 2021-0 Yes [id number] 100mg Take 1 [facility] oin&Nit. 9-01 capsule by ity o f [facility] 00:00: mouth in [place] as (MACROBID) 00 the Medical 100 mg morning Branch capsule and 1 capsule in the evening. fluconazole 2021-0 Yes [id number] Take one [facility] 150 mg 9-01 tablet ity of tablet 00:00: every 72H, [place] 00 if Medical symptoms Branch present, may take a third dose on day 6, Take after completion of antibiotic if yeast infection is present triamcinolo 2021-0 Yes [id number] Apply to [facility] 05-24 area(s) ity of acetonide 00:00: once daily [place] 0.1 % cream 00 as needed Med ical for Branch Dermatitis /Rash or Itching. Nitrofurant 2021-0 Yes [id number] 100mg Take 1 [facility] oin&Nit. 9-01 capsule by ity o f [facility] 00:00: mouth in [place] as (MACROBID) 00 the Medical 100 mg morning Branch capsule and 1 capsule in the evening. fluconazole 2021-0 Yes [id number] Take one [facility] 150 mg 9-01 tablet ity of tablet 00:00: every 72H, [place] 00 if Medical symptoms Branch present, may take a third dose on day 6, Take after completion of antibiotic if yeast infection is present triamcinolo 2021-0 Yes [id number] Apply to [facility] 05-24 area(s) ity of acetonide 00:00: once daily [place] 0.1 % cream 00 as needed Med ical for Branch Dermatitis /Rash or Itching. Nitrofurant 2021-0 Yes [id number] 100mg Take 1 [facility] oin&Nit. 9-01 capsule by ity o f [facility] 00:00: mouth in [place] as (MACROBID) 00 the Medical 100 mg morning Branch capsule and 1 capsule in the evening. fluconazole 2021-0 Yes [id number] Take one [facility] 150 mg 9-01 tablet ity of tablet 00:00: every 72H, [place] 00 if Medical symptoms Branch present, may take a third dose on day 6, Take after completion of antibiotic if yeast infection is present triamcinolo 2021-0 Yes [id number] Apply to [facility] 05-24 area(s) ity of acetonide 00:00: once daily [place] 0.1 % cream 00 as needed Med ical for Branch Dermatitis /Rash or Itching. Nitrofurant 2021-0 Yes [id number] 100mg Take 1 [facility] oin&Nit. 9-01 capsule by ity o f [facility] 00:00: mouth in [place] as (MACROBID) 00 the Medical 100 mg morning Branch capsule and 1 capsule in the evening. fluconazole 2021-0 Yes [id number] Take one [facility] 150 mg 9-01 tablet ity of tablet 00:00: every 72H, [place] 00 if Medical symptoms Branch present, may take a third dose on day 6, Take after completion of antibiotic if yeast infection is present triamcinolo 2021-0 Yes [id number] Apply to [facility] 05-24 area(s) ity of acetonide 00:00: once daily [place] 0.1 % cream 00 as needed Med ical for Branch Dermatitis /Rash or Itching. Nitrofurant 2021-0 Yes [id number] 100mg Take 1 [facility] oin&Nit. 9-01 capsule by ity o f [facility] 00:00: mouth in [place] as (MACROBID) 00 the Medical 100 mg morning Branch capsule and 1 capsule in the evening. fluconazole 2021-0 Yes [id number] Take one [facility] 150 mg 9-01 tablet ity of tablet 00:00: every 72H, [place] 00 if Medical symptoms Branch present, may take a third dose on day 6, Take after completion of antibiotic if yeast infection is present triamcinolo 2021-0 Yes [id number] Apply to [facility] 05-24 area(s) ity of acetonide 00:00: once daily [place] 0.1 % cream 00 as needed Med ical for Branch Dermatitis /Rash or Itching. Nitrofurant 0 Yes [id number] 100mg Take 1 [facility] oin&Nit. 9-01 capsule by ity o f [facility] 00:00: mouth in [place] as (MACROBID) 00 the Medical 100 mg morning Branch capsule and 1 capsule in the evening. fluconazole 0 Yes [id number] Take one [facility] 150 mg 9-01 tablet ity of tablet 00:00: every 72H, [place] 00 if Medical symptoms Branch present, may take a third dose on day 6, Take after completion of antibiotic if yeast infection is present triamcinolo 2021-0 Yes [id number] Apply to [facility] 05-24 area(s) ity of acetonide 00:00: once daily [place] 0.1 % cream 00 as needed Med ical for Branch Dermatitis /Rash or Itching. Nitrofurant Yes [id number] 100mg Take 1 [facility] oin&Nit. 9-01 capsule by ity o f [facility] 00:00: mouth in [place] as (MACROBID) 00 the Medical 100 mg morning Branch capsule and 1 capsule in the evening. fluconazole 0 Yes [id number] Take one [facility] 150 mg 9-01 tablet ity of tablet 00:00: every 72H, [place] 00 if Medical symptoms Branch present, may take a third dose on day 6, Take after completion of antibiotic if yeast infection is present triamcinolo 2021-0 Yes [id number] Apply to [place] [address] area(s) ity of acetonide 00:00: once daily [place] 0.1 % cream 00 as needed Med ical for Branch Dermatitis /Rash or Itching. Nitrofurant Yes [id number] 100mg Take 1 [facility] oin&Nit. 9-01 capsule by ity o f [facility] 00:00: mouth in [place] as (MACROBID) 00 the Medical 100 mg morning Branch capsule and 1 capsule in the evening. fluconazole 2021-0 Yes [id number] Take one [facility] 150 mg 9-01 tablet ity of tablet 00:00: every 72H, [place] 00 if Medical symptoms Branch present, may take a third dose on day 6, Take after completion of antibiotic if yeast infection is present triamcinolo 2021-0 Yes [id number] Apply to [facility] area(s) ity of acetonide 00:00: once daily [place] 0.1 % cream 00 as needed Med ical for Branch Dermatitis /Rash or Itching. Nitrofurant 2021-0 Yes [id number] 100mg Take 1 [facility] oin&Nit. 9-01 capsule by ity o f [facility] 00:00: mouth in [place] as (MACROBID) 00 the Medical 100 mg morning Branch capsule and 1 capsule in the evening. fluconazole 2021-0 Yes [id number] Take one [facility] 150 mg 9-01 tablet ity of tablet 00:00: every 72H, [place] 00 if Medical symptoms Branch present, may take a third dose on day 6, Take after completion of antibiotic if yeast infection is present triamcinolo 2021-0 Yes [id number] Apply to [facility] 05-24 area(s) ity of acetonide 00:00: once daily [place] 0.1 % cream 00 as needed Med ical for Branch Dermatitis /Rash or Itching. Nitrofurant 2021-0 Yes [id number] 100mg Take 1 [facility]&Nit. 9-01 capsule by ity o f [facility] 00:00: mouth in [place] as (MACROBID) 00 the Medical 100 mg morning Branch capsule and 1 capsule in the evening. fluconazole 2021-0 Yes [id number] Take one [facility] 150 mg 9-01 tablet ity of tablet 00:00: every 72H, [place] 00 if Medical symptoms Branch present, may take a third dose on day 6, Take after completion of antibiotic if yeast infection is present triamcinolo 2021-0 Yes [id number] Apply to [facility] area(s) ity of acetonide 00:00: once daily [place] 0.1 % cream 00 as needed Med ical for Branch Dermatitis /Rash or Itching. Nitrofurant 2021-0 Yes [id number] 100mg Take 1 [facility] oin&Nit. 9-01 capsule by ity o f [facility] 00:00: mouth in [place] as (MACROBID) 00 the Medical 100 mg morning Branch capsule and 1 capsule in the evening. fluconazole 2021-0 Yes [id number] Take one [facility] 150 mg 9-01 tablet ity of tablet 00:00: every 72H, [place] 00 if Medical symptoms Branch present, may take a third dose on day 6, Take after completion of antibiotic if yeast infection is present triamcinolo Yes [id number] Apply to [facility] area(s) ity of acetonide 00:00: once daily [place] 0.1 % cream 00 as needed Med ical for Branch Dermatitis /Rash or Itching. Nitrofurant Yes [id number] 100mg Take 1 [facility] oin&Nit. 9-01 capsule by ity o f [facility] 00:00: mouth in [place] as (MACROBID) 00 the Medical 100 mg morning Branch capsule and 1 capsule in the evening. fluconazole Yes [id number] Take one [facility] 150 mg 9-01 tablet ity of tablet 00:00: every 72H, [place] 00 if Medical symptoms Branch present, may take a third dose on day 6, Take after completion of antibiotic if yeast infection is present triamcinolo Yes [id number] Apply to [facility] 05-24 area(s) ity of acetonide 00:00: once daily [place] 0.1 % cream 00 as needed Med ical for Branch Dermatitis /Rash or Itching. Nitrofurant Yes [id number] 100mg Take 1 [facility] oin&Nit. 9-01 capsule by ity o f [facility] 00:00: mouth in [place] as (MACROBID) 00 the Medical 100 mg morning Branch capsule and 1 capsule in the evening. fluconazole Yes [id number] Take one [facility] 150 mg 9-01 tablet ity of tablet 00:00: every 72H, [place] 00 if Medical symptoms Branch present, may take a third dose on day 6, Take after completion of antibiotic if yeast infection is present triamcinolo 0 Yes [id number] Apply to [facility] area(s) ity of acetonide 00:00: once daily [place] 0.1 % cream 00 as needed Med ical for Branch Dermatitis /Rash or Itching. Nitrofurant Yes [id number] 100mg Take 1 [facility] oin&Nit. 9-01 capsule by ity o f [facility] 00:00: mouth in [place] as (MACROBID) 00 the Medical 100 mg morning Branch capsule and 1 capsule in the evening. fluconazole 0 Yes [id number] Take one [facility] 150 mg 9-01 tablet ity of tablet 00:00: every 72H, [place] 00 if Medical symptoms Branch present, may take a third dose on day 6, Take after completion of antibiotic if yeast infection is present triamcinolo 2021-0 Yes [id number] Apply to [facility] area(s) ity of acetonide 00:00: once daily [place] 0.1 % cream 00 as needed Med ical for Branch Dermatitis /Rash or Itching. Nitrofurant 2021-0 Yes [id number] 100mg Take 1 [facility] oin&Nit. 9-01 capsule by ity o f [facility] 00:00: mouth in [place] as (MACROBID) 00 the Medical 100 mg morning Branch capsule and 1 capsule in the evening. fluconazole 2021-0 Yes [id number] Take one [facility] 150 mg 9-01 tablet ity of tablet 00:00: every 72H, [place] 00 if Medical symptoms Branch present, may take a third dose on day 6, Take after completion of antibiotic if yeast infection is present triamcinolo 2021-0 Yes [id number] Apply to [facility] area(s) ity of acetonide 00:00: once daily [place] 0.1 % cream 00 as needed Med ical for Branch Dermatitis /Rash or Itching. Nitrofurant 2021-0 Yes [id number] 100mg Take 1 [facility] oin&Nit. 9-01 capsule by ity o f [facility] 00:00: mouth in [place] as (MACROBID) 00 the Medical 100 mg morning Branch capsule and 1 capsule in the evening. fluconazole 2021-0 Yes [id number] Take one [facility] 150 mg 9-01 tablet ity of tablet 00:00: every 72H, [place] 00 if Medical symptoms Branch present, may take a third dose on day 6, Take after completion of antibiotic if yeast infection is present triamcinolo 2021-0 Yes [id number] Apply to [facility] area(s) ity of acetonide 00:00: once daily [place] 0.1 % cream 00 as needed Med ical for Branch Dermatitis /Rash or Itching. Nitrofurant 2021-0 Yes [id number] 100mg Take 1 [facility] oin&Nit. 9-01 capsule by ity o f [facility] 00:00: mouth in [place] as (MACROBID) 00 the Medical 100 mg morning Branch capsule and 1 capsule in the evening. fluconazole 2021-0 Yes [id number] Take one [facility] 150 mg 9-01 tablet ity of tablet 00:00: every 72H, [place] 00 if Medical symptoms Branch present, may take a third dose on day 6, Take after completion of antibiotic if yeast infection is present triamcinolo 2021-0 Yes [id number] Apply to [facility] 05-24 area(s) ity of acetonide 00:00: once daily [place] 0.1 % cream 00 as needed Med ical for Branch Dermatitis /Rash or Itching. Nitrofurant 2021-0 Yes [id number] 100mg Take 1 [facility] oin&Nit. 9-01 capsule by ity o f [facility] 00:00: mouth in [place] as (MACROBID) 00 the Medical 100 mg morning Branch capsule and 1 capsule in the evening. fluconazole 2021-0 Yes [id number] Take one [facility] 150 mg 9-01 tablet ity of tablet 00:00: every 72H, [place] 00 if Medical symptoms Branch present, may take a third dose on day 6, Take after completion of antibiotic if yeast infection is present triamcinolo 2021-0 Yes [id number] Apply to [facility] 05-24 area(s) ity of acetonide 00:00: once daily [place] 0.1 % cream 00 as needed Med ical for Branch Dermatitis /Rash or Itching. Nitrofurant Yes [id number] 100mg Take 1 [facility] oin&Nit. 9-01 capsule by ity o f [facility] 00:00: mouth in [place] as (MACROBID) 00 the Medical 100 mg morning Branch capsule and 1 capsule in the evening. fluconazole 2021-0 Yes [id number] Take one [facility] 150 mg 9-01 tablet ity of tablet 00:00: every 72H, [place] 00 if Medical symptoms Branch present, may take a third dose on day 6, Take after completion of antibiotic if yeast infection is present triamcinolo 2021-0 Yes [id number] Apply to [facility] 05-24 area(s) ity of acetonide 00:00: once daily [place] 0.1 % cream 00 as needed Med ical for Branch Dermatitis /Rash or Itching. Nitrofurant 2021-0 Yes [id number] 100mg Take 1 [facility] oin&Nit. 9-01 capsule by ity o f [facility] 00:00: mouth in [place] as (MACROBID) 00 the Medical 100 mg morning Branch capsule and 1 capsule in the evening. fluconazole 2021-0 Yes [id number] Take one [facility] 150 mg 9-01 tablet ity of tablet 00:00: every 72H, [place] 00 if Medical symptoms Branch present, may take a third dose on day 6, Take after completion of antibiotic if yeast infection is present triamcinolo 2021-0 Yes [id number] Apply to [facility] 05-24 area(s) ity of acetonide 00:00: once daily [place] 0.1 % cream 00 as needed Med ical for Branch Dermatitis /Rash or Itching. Nitrofurant 2021-0 Yes [id number] 100mg Take 1 [facility] oin&Nit. 9-01 capsule by ity o f [facility] 00:00: mouth in [facility] as (MACROBID) 00 the Medical 100 mg morning Branch capsule and 1 capsule in the evening. fluconazole 2021-0 Yes [id number] Take one [facility] 150 mg 9-01 tablet ity of tablet 00:00: every 72H, [place] 00 if Medical symptoms Branch present, may take a third dose on day 6, Take after completion of antibiotic if yeast infection is present triamcinolo 2021-0 Yes [id number] Apply to [facility] 05-24 area(s) ity of acetonide 00:00: once daily [place] 0.1 % cream 00 as needed Med ical for Branch Dermatitis /Rash or Itching. Nitrofurant 2021-0 Yes [id number] 100mg Take 1 [facility] oin&Nit. 9-01 capsule by ity o f [facility] 00:00: mouth in [facility] as (MACROBID) 00 the Medical 100 mg morning Branch capsule and 1 capsule in the evening. fluconazole 2021-0 Yes [id number] Take one [facility] 150 mg 9-01 tablet ity of tablet 00:00: every 72H, [place] 00 if Medical symptoms Branch present, may take a third dose on day 6, Take after completion of antibiotic if yeast infection is present triamcinolo 2021-0 Yes [id number] Apply to [facility] 05-24 area(s) ity of acetonide 00:00: once daily [place] 0.1 % cream 00 as needed Med ical for Branch Dermatitis /Rash or Itching. Nitrofurant 2022-0 Yes [id number] 100mg Take 1 [facility] oin&Nit. 05-24 capsule by itshelby malcolm f [facility] 00:00: mouth in [place] as (MACROBID) 00 the Medical 100 mg morning Branch capsule and 1 capsule in the evening. fluconazole Yes [id number] Take one [facility] 150 mg 05-24 tablet ity of tablet 00:00: every 72H, [place] 00 if Medical symptoms Branch present, may take a third dose on day 6, Take after completion of antibiotic if yeast infection is present triamcinolo Yes [id number] Apply to [facility] 05-24 area(s) ity of acetonide 00:00: once daily [place] 0.1 % cream 00 as needed Med ical for Branch Dermatitis /Rash or Itching. triamcinolo Yes [id number] Apply to [facility] 05-24 area(s) ity of acetonide 00:00: once daily [place] 0.1 % cream 00 as needed Med ical for Branch Dermatitis /Rash or Itching. triamcinolo Yes [id number] Apply to [facility] 05-24 area(s) ity of acetonide 00:00: once daily [place] 0.1 % cream 00 as needed Med ical for Branch Dermatitis /Rash or Itching. triamcinolo Yes [id number] Apply to [facility] 05-24 area(s) ity of acetonide 00:00: once daily [place] 0.1 % cream 00 as needed Med ical for Branch Dermatitis /Rash or Itching. triamcinolo Yes [id number] Apply to [facility] 05-24 area(s) ity of acetonide 00:00: once daily [place] 0.1 % cream 00 as needed Med ical for Branch Dermatitis /Rash or Itching. triamcinolo Yes [id number] Apply to [facility] 05-24 area(s) ity of acetonide 00:00: once daily [place] 0.1 % cream 00 as needed Med ical for Branch Dermatitis /Rash or Itching. triamcinolo Yes [id number] Apply to [facility] 05-24 area(s) ity of acetonide 00:00: once daily [place] 0.1 % cream 00 as needed Med ical for Branch Dermatitis /Rash or Itching. triamcinolo 2021-0 Yes [id number] Apply to [facility] 05-24 area(s) ity of acetonide 00:00: once daily [place] 0.1 % cream 00 as needed Med ical for Branch Dermatitis /Rash or Itching. triamcinolo 2021-0 Yes [id number] Apply to [facility] 05-24 area(s) ity of acetonide 00:00: once daily [place] 0.1 % cream 00 as needed Med ical for Branch Dermatitis /Rash or Itching. triamcinolo 2021-0 Yes [id number] Apply to [facility] 05-24 area(s) ity of acetonide 00:00: once daily [place] 0.1 % cream 00 as needed Med ical for Branch Dermatitis /Rash or Itching. triamcinolo 2021-0 Yes [id number] Apply to [facility] 05-24 area(s) ity of acetonide 00:00: once daily [place] 0.1 % cream 00 as needed Med ical for Branch Dermatitis /Rash or Itching. triamcinolo 2021-0 Yes [id number] Apply to [facility] 05-24 area(s) ity of acetonide 00:00: once daily [place] 0.1 % cream 00 as needed Med ical for Branch Dermatitis /Rash or Itching. triamcinolo 2021-0 Yes [id number] Apply to [facility] 05-24 area(s) ity of acetonide 00:00: once daily [place] 0.1 % cream 00 as needed Med ical for Branch Dermatitis /Rash or Itching. triamcinolo 2021-0 Yes [id number] Apply to [facility] 05-24 area(s) ity of acetonide 00:00: once daily [place] 0.1 % cream 00 as needed Med ical for Branch Dermatitis /Rash or Itching. triamcinolo 2021-0 Yes [id number] Apply to [facility] 05-24 area(s) ity of acetonide 00:00: once daily [place] 0.1 % cream 00 as needed Med ical for Branch Dermatitis /Rash or Itching. triamcinolo 2021-0 Yes [id number] Apply to [facility] 05-24 area(s) ity of acetonide 00:00: once daily [place] 0.1 % cream 00 as needed Med ical for Branch Dermatitis /Rash or Itching. triamcinolo 2021-0 Yes [id number] Apply to [facility] 05-24 area(s) ity of acetonide 00:00: once daily [place] 0.1 % cream 00 as needed Med ical for Branch Dermatitis /Rash or Itching. triamcinolo 2021-0 Yes [id number] Apply to [facility] 05-24 area(s) ity of acetonide 00:00: once daily [place] 0.1 % cream 00 as needed Med ical for Branch Dermatitis /Rash or Itching. triamcinolo 2021-0 Yes [id number] Apply to [facility] 05-24 area(s) ity of acetonide 00:00: once daily [place] 0.1 % cream 00 as needed Med ical for Branch Dermatitis /Rash or Itching. triamcinolo 2021-0 Yes [id number] Apply to [facility] 05-24 area(s) ity of acetonide 00:00: once daily [place] 0.1 % cream 00 as needed Med ical for Branch Dermatitis /Rash or Itching. triamcinolo 2021-0 Yes [id number] Apply to [facility] 05-24 area(s) ity of acetonide 00:00: once daily [place] 0.1 % cream 00 as needed Med ical for Branch Dermatitis /Rash or Itching. triamcinolo 2021-0 Yes [id number] Apply to [facility] 05-24 area(s) ity of acetonide 00:00: once daily [place] 0.1 % cream 00 as needed Med ical for Branch Dermatitis /Rash or Itching. triamcinolo 2021-0 Yes [id number] Apply to [facility] 05-24 area(s) ity of acetonide 00:00: once daily [place] 0.1 % cream 00 as needed Med ical for Branch Dermatitis /Rash or Itching. triamcinolo 2021-0 Yes [id number] Apply to [facility] 05-24 area(s) ity of acetonide 00:00: once daily [place] 0.1 % cream 00 as needed Med ical for Branch Dermatitis /Rash or Itching. triamcinolo 2021-0 Yes [id number] Apply to [facility] 05-24 area(s) ity of acetonide 00:00: once daily [place] 0.1 % cream 00 as needed Med ical for Branch Dermatitis /Rash or Itching. triamcinolo 2021-0 Yes [id number] Apply to [facility] 05-24 area(s) ity of acetonide 00:00: once daily [place] 0.1 % cream 00 as needed Med ical for Branch Dermatitis /Rash or Itching. triamcinolo 2021-0 Yes [id number] Apply to [facility] 05-24 area(s) ity of acetonide 00:00: once daily [place] 0.1 % cream 00 as needed Med ical for Branch Dermatitis /Rash or Itching. triamcinolo 2021-0 Yes [id number] Apply to [facility] 05-24 area(s) ity of acetonide 00:00: once daily [place] 0.1 % cream 00 as needed Med ical for Branch Dermatitis /Rash or Itching. triamcinrach 2021-0 Yes [id number] Apply to [facility] 05-24 area(s) ity of acetonide 00:00: once daily [place] 0.1 % cream 00 as needed Med ical for Branch Dermatitis /Rash or Itching. triamcinrach 2021-0 Yes [id number] Apply to [facility] 05-24 area(s) ity of acetonide 00:00: once daily [place] 0.1 % cream 00 as needed Med ical for Branch Dermatitis /Rash or Itching. triamcinrach 2021-0 Yes [id number] Apply to [facility] 05-24 area(s) ity of acetonide 00:00: once daily [place] 0.1 % cream 00 as needed Med ical for Branch Dermatitis /Rash or Itching. triamcinolo 2021-0 Yes [id number] Apply to [facility] 05-24 area(s) ity of acetonide 00:00: once daily [place] 0.1 % cream 00 as needed Med ical for Branch Dermatitis /Rash or Itching. triamcinolo 2021-0 Yes [id number] Apply to [facility] 05-24 area(s) ity of acetonide 00:00: once daily [place] 0.1 % cream 00 as needed Med ical for Branch Dermatitis /Rash or Itching. triamcinolo 2021-0 Yes [id number] Apply to [facility] 05-24 area(s) ity of acetonide 00:00: once daily [place] 0.1 % cream 00 as needed Med ical for Branch Dermatitis /Rash or Itching. triamcinolo 2021-0 Yes [id number] Apply to [facility] 05-24 area(s) ity of acetonide 00:00: once daily [place] 0.1 % cream 00 as needed Med ical for Branch Dermatitis /Rash or Itching. triamcinolo 2021-0 Yes [id number] Apply to [facility] 05-24 area(s) ity of acetonide 00:00: once daily [place] 0.1 % cream 00 as needed Med ical for Branch Dermatitis /Rash or Itching. triamcinolo 2021-0 Yes [id number] Apply to [facility] 05-24 area(s) ity of acetonide 00:00: once daily [place] 0.1 % cream 00 as needed Med ical for Branch Dermatitis /Rash or Itching. triamcinolo 2021-0 Yes [id number] Apply to [facility] 05-24 area(s) ity of acetonide 00:00: once daily [place] 0.1 % cream 00 as needed Med ical for Branch Dermatitis /Rash or Itching. triamcinolo 2021-0 Yes [id number] Apply to [facility] 05-24 area(s) ity of acetonide 00:00: once daily [place] 0.1 % cream 00 as needed Med ical for Branch Dermatitis /Rash or Itching. triamcinolo 2021-0 Yes [id number] Apply to [facility] 05-24 area(s) ity of acetonide 00:00: once daily [place] 0.1 % cream 00 as needed Med ical for Branch Dermatitis /Rash or Itching. triamcinolo 2021-0 Yes [id number] Apply to [facility] 05-24 area(s) ity of acetonide 00:00: once daily [place] 0.1 % cream 00 as needed Med ical for Branch Dermatitis /Rash or Itching. triamcinolo 2021-0 Yes [id number] Apply to [facility] 05-24 area(s) ity of acetonide 00:00: once daily [place] 0.1 % cream 00 as needed Med ical for Branch Dermatitis /Rash or Itching. triamcinrach 2021-0 Yes [id number] Apply to [facility] 05-24 area(s) ity of acetonide 00:00: once daily [place] 0.1 % cream 00 as needed Med ical for Branch Dermatitis /Rash or Itching. triamcinrach 2021-0 Yes [id number] Apply to [facility] 05-24 area(s) ity of acetonide 00:00: once daily [place] 0.1 % cream 00 as needed Med ical for Branch Dermatitis /Rash or Itching. triamcinrach 2021-0 Yes [id number] Apply to [facility] 05-24 area(s) ity of acetonide 00:00: once daily [place] 0.1 % cream 00 as needed Med ical for Branch Dermatitis /Rash or Itching. triamcinrach 2021-0 Yes [id number] Apply to [facility] 05-24 area(s) ity of acetonide 00:00: once daily [place] 0.1 % cream 00 as needed Med ical for Branch Dermatitis /Rash or Itching. triamcinrach 2021-0 Yes [id number] Apply to [facility] 05-24 area(s) ity of acetonide 00:00: once daily [place] 0.1 % cream 00 as needed Med ical for Branch Dermatitis /Rash or Itching. triamcinrach 2021-0 Yes [id number] Apply to [facility] 05-24 area(s) ity of acetonide 00:00: once daily [place] 0.1 % cream 00 as needed Med ical for Branch Dermatitis /Rash or Itching. triamcinolo 2021-0 Yes [id number] Apply to [facility] 05-24 area(s) ity of acetonide 00:00: once daily [place] 0.1 % cream 00 as needed Med ical for Branch Dermatitis /Rash or Itching. triamcinrach 2021-0 Yes [id number] Apply to [facility] 05-24 area(s) ity of acetonide 00:00: once daily [place] 0.1 % cream 00 as needed Med ical for Branch Dermatitis /Rash or Itching. triamcinolo 2021-0 Yes [id number] Apply to [facility] 05-24 area(s) ity of acetonide 00:00: once daily [place] 0.1 % cream 00 as needed Med ical for Branch Dermatitis /Rash or Itching. triamcinolo 2021-0 Yes [id number] Apply to [facility] 05-24 area(s) ity of acetonide 00:00: once daily [place] 0.1 % cream 00 as needed Med ical for Branch Dermatitis /Rash or Itching. triamcinolo 2021-0 Yes [id number] Apply to [facility] 05-24 area(s) ity of acetonide 00:00: once daily [place] 0.1 % cream 00 as needed Med ical for Branch Dermatitis /Rash or Itching. triamcinolo 2021-0 Yes [id number] Apply to [facility] 05-24 area(s) ity of acetonide 00:00: once daily [place] 0.1 % cream 00 as needed Med ical for Branch Dermatitis /Rash or Itching. triamcinolo 2021-0 Yes [id number] Apply to [facility] 05-24 area(s) ity of acetonide 00:00: once daily [place] 0.1 % cream 00 as needed Med ical for Branch Dermatitis /Rash or Itching. triamcinolo 2021-0 Yes [id number] Apply to [facility] 05-24 area(s) ity of acetonide 00:00: once daily [place] 0.1 % cream 00 as needed Med ical for Branch Dermatitis /Rash or Itching. triamcinolo 2021-0 Yes [id number] Apply to [facility] 05-24 area(s) ity of acetonide 00:00: once daily [place] 0.1 % cream 00 as needed Med ical for Branch Dermatitis /Rash or Itching. triamcinolo 2021-0 Yes [id number] Apply to [facility] 05-24 area(s) ity of acetonide 00:00: once daily [place] 0.1 % cream 00 as needed Med ical for Branch Dermatitis /Rash or Itching. triamcinolo 2021-0 Yes [id number] Apply to [facility] 05-24 area(s) ity of acetonide 00:00: once daily [place] 0.1 % cream 00 as needed Med ical for Branch Dermatitis /Rash or Itching. triamcinolo 2021-0 Yes [id number] Apply to [facility] 05-24 area(s) ity of acetonide 00:00: once daily [place] 0.1 % cream 00 as needed Med ical for Branch Dermatitis /Rash or Itching. triamcinolo 2021-0 Yes [id number] Apply to [facility] 05-24 area(s) ity of acetonide 00:00: once daily [place] 0.1 % cream 00 as needed Med ical for Branch Dermatitis /Rash or Itching. triamcinolo 2021-0 Yes [id number] Apply to [facility] 05-24 area(s) ity of acetonide 00:00: once daily [place] 0.1 % cream 00 as needed Med ical for Branch Dermatitis /Rash or Itching. triamcinolo 2021-0 Yes [id number] Apply to [facility] 05-24 area(s) ity of acetonide 00:00: once daily [place] 0.1 % cream 00 as needed Med ical for Branch Dermatitis /Rash or Itching. triamcinolo 2021-0 Yes [id number] Apply to [facility] 05-24 area(s) ity of acetonide 00:00: once daily [place] 0.1 % cream 00 as needed Med ical for Branch Dermatitis /Rash or Itching. triamcinolo 2021-0 Yes [id number] Apply to [facility] 05-24 area(s) ity of acetonide 00:00: once daily [place] 0.1 % cream 00 as needed Med ical for Branch Dermatitis /Rash or Itching. triamcinolo 2021-0 Yes [id number] Apply to [facility] 05-24 area(s) ity of acetonide 00:00: once daily [place] 0.1 % cream 00 as needed Med ical for Branch Dermatitis /Rash or Itching. triamcinolo 2021-0 Yes [id number] Apply to [facility] 05-24 area(s) ity of acetonide 00:00: once daily [place] 0.1 % cream 00 as needed Med ical for Branch Dermatitis /Rash or Itching. triamcinolo 2021-0 Yes [id number] Apply to [facility] 05-24 area(s) ity of acetonide 00:00: once daily [place] 0.1 % cream 00 as needed Med ical for Branch Dermatitis /Rash or Itching. triamcinolo 2021-0 Yes [id number] Apply to [facility] 05-24 area(s) ity of acetonide 00:00: once daily [place] 0.1 % cream 00 as needed Med ical for Branch Dermatitis /Rash or Itching. triamcinrach 2021-0 Yes [id number] Apply to [facility] 05-24 area(s) ity of acetonide 00:00: once daily [place] 0.1 % cream 00 as needed Med ical for Branch Dermatitis /Rash or Itching. triamcinrach 0 Yes [id number] Apply to [facility] 05-24 area(s) ity of acetonide 00:00: once daily [place] 0.1 % cream 00 as needed Med ical for Branch Dermatitis /Rash or Itching. staciamcinrach 2021-0 Yes [id number] Apply to [facility] 05-24 area(s) ity of acetonide 00:00: once daily [place] 0.1 % cream 00 as needed Med ical for Branch Dermatitis /Rash or Itching. triamcinrach 2021-0 Yes [id number] Apply to [facility] 05-24 area(s) ity of acetonide 00:00: once daily [place] 0.1 % cream 00 as needed Med ical for Branch Dermatitis /Rash or Itching. triamcinrach 2021-0 Yes [id number] Apply to [facility] 05-24 area(s) ity of acetonide 00:00: once daily [place] 0.1 % cream 00 as needed Med ical for Branch Dermatitis /Rash or Itching. triamcinolo 2021-0 Yes [id number] Apply to [facility] 05-24 area(s) ity of acetonide 00:00: once daily [place] 0.1 % cream 00 as needed Med ical for Branch Dermatitis /Rash or Itching. triamcinolo 2021-0 Yes [id number] Apply to [facility] 05-24 area(s) ity of acetonide 00:00: once daily [place] 0.1 % cream 00 as needed Med ical for Branch Dermatitis /Rash or Itching. triamcinolo Yes [id number] Apply to [facility] 05-24 area(s) ity of acetonide 00:00: once daily [place] 0.1 % cream 00 as needed Med ical for Branch Dermatitis /Rash or Itching. triamcinolo 0 Yes [id number] Apply to [facility] 05-24 area(s) ity of acetonide 00:00: once daily [place] 0.1 % cream 00 as needed Med ical for Branch Dermatitis /Rash or Itching. triamcinolo Yes [id number] Apply to [facility] 05-24 area(s) ity of acetonide 00:00: once daily [place] 0.1 % cream 00 as needed Med ical for Branch Dermatitis /Rash or Itching. triamcinolo Yes [id number] Apply to [facility] 05-24 area(s) ity of acetonide 00:00: once daily [place] 0.1 % cream 00 as needed Med ical for Branch Dermatitis /Rash or Itching. triamcinolo Yes [id number] Apply to [facility] 05-24 area(s) ity of acetonide 00:00: once daily [place] 0.1 % cream 00 as needed Med ical for Branch Dermatitis /Rash or Itching. triamcinolo Yes [id number] Apply to [facility] 05-24 area(s) ity of acetonide 00:00: once daily [place] 0.1 % cream 00 as needed Med ical for Branch Dermatitis /Rash or Itching. triamcinolo Yes [id number] Apply to [facility] 05-24 area(s) ity of acetonide 00:00: once daily [place] 0.1 % cream 00 as needed Med ical for Branch Dermatitis /Rash or Itching. triamcinolo 0 Yes [id number] Apply to [facility] 05-24 area(s) ity of acetonide 00:00: once daily [place] 0.1 % cream 00 as needed Med ical for Branch Dermatitis /Rash or Itching. Nitrofurant 0 2023- No [id number] 100mg Take 1 [facility]Nit. 05-24 capsule by ity of Macrocryst 00:00: 00:00 mouth in [place] (MACROBID) 00 :00 the Medical 100 mg morning Branch capsule and 1 capsule in the evening. fluconazole No [id number] Take one [facility] 150 mg 05-24- tablet ity of tablet 00:00: 00:00 [place] 00 :[place] if Medical symptoms Branch present, may take a third dose on day 6, Take after completion of antibiotic if yeast infection is present Nitrofurant 2022- No [id number] 100mg Take 1 [facility] oin&Nit. 05-24- capsule by ity of Macroc[place] 00:00: 00:00 mouth in [place] (MACROBID) 00 :00 the Medical 100 mg morning Branch capsule and 1 capsule in the evening. fluconazole No [id number] Take one [facility] 150 mg 05-24- tablet ity of tablet 00:00: 00:00 [place] 00 :[place] if Medical symptoms Branch present, may take a third dose on day 6, Take after completion of antibiotic if yeast infection is present Nitrofurant 2022- No [id number] 100mg Take 1 [facility] oin&Nit. 05-24- capsule by ity of Macrocryst 00:00: 00:00 mouth in [place] (MACROBID) 00 :00 the Medical 100 mg morning Branch capsule and 1 capsule in the evening. fluconazole 2022- No [id number] Take one [facility] 150 mg 05-24- tablet ity of tablet 00:00: 00:00 [place] 00 :[place] if Medical symptoms Branch present, may take a third dose on day 6, Take after completion of antibiotic if yeast infection is present Nitrofurant 2022- No [id number] 100mg Take 1 [facility] oin&Nit. 05-24- capsule by ity of [place] 00:00: 00:00 mouth in [place] (MACROBID) 00 :00 the Medical 100 mg morning Branch capsule and 1 capsule in the evening. fluconazole 2022- No [id number] Take one [facility] 150 mg 9-01 02-07 tablet ity of tablet 00:00: 00:00 [place] 00 :[place] if Medical symptoms Branch present, may take a third dose on day 6, Take after completion of antibiotic if yeast infection is present Nitrofurant 2022- No [id number] 100mg Take 1 [facility] oin&Nit. 05-24 capsule by ity of [place] 00:00: 00:00 mouth in [place] (MACROBID) 00 :00 the Medical 100 mg morning Branch capsule and 1 capsule in the evening. fluconazole 2022- No [id number] Take one [facility] 150 mg 05-24 tablet ity of tablet 00:00: 00:00 [place] 00 :[place] if Medical symptoms Branch present, may take a third dose on day 6, Take after completion of antibiotic if yeast infection is present SITagliptin Yes [id number] TAKE 1 [facility] (JANUVIA) 8-24 TABLET BY ity o f 100 mg 00:00: MOUTH [place] tablet 00 EVERY Medical MORNING Branch SITagliptin Yes [id number] TAKE 1 [facility] (JANUVIA) 8-24 TABLET BY ity o f 100 mg 00:00: MOUTH [place] tablet 00 EVERY Medical MORNING Branch SITagliptin Yes [id number] TAKE 1 [facility] (JANUVIA) 8-24 TABLET BY ity o f 100 mg 00:00: MOUTH [place] tablet 00 EVERY Medical MORNING Branch SITagliptin Yes [id number] TAKE 1 [facility] (JANUVIA) 8-24 TABLET BY ity o f 100 mg 00:00: MOUTH [place] tablet 00 EVERY Medical MORNING Branch SITagliptin Yes [id number] TAKE 1 [facility] (JANUVIA) 8-24 TABLET BY ity o f 100 mg 00:00: MOUTH [place] tablet 00 EVERY Medical MORNING Branch SITagliptin Yes [id number] TAKE 1 [facility] (JANUVIA) 8-24 TABLET BY ity o f 100 mg 00:00: MOUTH [place] tablet 00 EVERY Medical MORNING Branch SITagliptin Yes [id number] TAKE 1 [facility] (JANUVIA) 8-24 TABLET BY ity o f 100 mg 00:00: MOUTH [place] tablet 00 EVERY Medical MORNING Branch SITagliptin Yes [id number] TAKE 1 [facility] (JANUVIA) 8-24 TABLET BY ity o f 100 mg 00:00: MOUTH [place] tablet 00 EVERY Medical MORNING Branch SITagliptin Yes [id number] TAKE 1 [facility] (JANUVIA) 8-24 TABLET BY ity o f 100 mg 00:00: MOUTH [place] tablet 00 EVERY Medical MORNING Branch SITagliptin Yes [id number] TAKE 1 [facility] (JANUVIA) 8-24 TABLET BY ity o f 100 mg 00:00: MOUTH [place] tablet 00 EVERY Medical MORNING Branch SITagliptin Yes [id number] TAKE 1 [facility] (JANUVIA) 8-24 TABLET BY ity o f 100 mg 00:00: MOUTH [place] tablet 00 EVERY Medical MORNING Branch SITagliptin Yes [id number] TAKE 1 [facility] (JANUVIA) 8-24 TABLET BY ity o f 100 mg 00:00: MOUTH [place] tablet 00 EVERY Medical MORNING Branch SITagliptin Yes [id number] TAKE 1 [facility] (JANUVIA) 8-24 TABLET BY ity o f 100 mg 00:00: MOUTH [place] tablet 00 EVERY Medical MORNING Branch SITagliptin Yes [id number] TAKE 1 [facility] (JANUVIA) 8-24 TABLET BY ity o f 100 mg 00:00: MOUTH [place] tablet 00 EVERY Medical MORNING Branch SITagliptin Yes [id number] TAKE 1 [facility] (JANUVIA) 8-24 TABLET BY ity o f 100 mg 00:00: MOUTH [place] tablet 00 EVERY Medical MORNING Branch SITagliptin 0 Yes [id number] TAKE 1 [facility] (JANUVIA) 8-24 TABLET BY ity o f 100 mg 00:00: MOUTH [place] tablet 00 EVERY Medical MORNING Branch SITagliptin 2021-0 Yes [id number] TAKE 1 [facility] (JANUVIA) 8-24 TABLET BY ity o f 100 mg 00:00: MOUTH [place] tablet 00 EVERY Medical MORNING Branch SITagliptin 2021-0 Yes [id number] TAKE 1 [facility] (JANUVIA) 8-24 TABLET BY ity o f 100 mg 00:00: MOUTH [place] tablet 00 EVERY Medical MORNING Branch SITagliptin 2021-0 Yes [id number] TAKE 1 [facility] (JANUVIA) 8-24 TABLET BY ity o f 100 mg 00:00: MOUTH [place] tablet 00 EVERY Medical MORNING Branch SITagliptin 2021-0 Yes [id number] TAKE 1 [facility] (JANUVIA) 8-24 TABLET BY ity o f 100 mg 00:00: MOUTH [place] tablet 00 EVERY Medical MORNING Branch SITagliptin Yes [id number] TAKE 1 [facility] (JANUVIA) 8-24 TABLET BY ity o f 100 mg 00:00: MOUTH [place] tablet 00 EVERY Medical MORNING Branch SITagliptin Yes [id number] TAKE 1 [facility] (JANUVIA) 8-24 TABLET BY ity o f 100 mg 00:00: MOUTH [place] tablet 00 EVERY Medical MORNING Branch SITagliptin Yes [id number] TAKE 1 [facility] (JANUVIA) 8-24 TABLET BY ity o f 100 mg 00:00: MOUTH [place] tablet 00 EVERY Medical MORNING Branch SITagliptin Yes [id number] TAKE 1 [facility] (JANUVIA) 8-24 TABLET BY ity o f 100 mg 00:00: MOUTH [place] tablet 00 EVERY Medical MORNING Branch SITagliptin Yes [id number] TAKE 1 [facility] (JANUVIA) 8-24 TABLET BY ity o f 100 mg 00:00: MOUTH [place] tablet 00 EVERY Medical MORNING Branch SITagliptin Yes [id number] TAKE 1 [facility] (JANUVIA) 8-24 TABLET BY ity o f 100 mg 00:00: MOUTH [place] tablet 00 EVERY Medical MORNING Branch SITagliptin Yes [id number] TAKE 1 [facility] (JANUVIA) 8-24 TABLET BY ity o f 100 mg 00:00: MOUTH [place] tablet 00 EVERY Medical MORNING Branch SITagliptin Yes [id number] TAKE 1 [facility] (JANUVIA) 8-24 TABLET BY ity o f 100 mg 00:00: MOUTH [place] tablet 00 EVERY Medical MORNING Branch SITagliptin Yes [id number] TAKE 1 [facility] (JANUVIA) 8-24 TABLET BY ity o f 100 mg 00:00: MOUTH [place] tablet 00 EVERY Medical MORNING Branch SITagliptin Yes [id number] TAKE 1 [facility] (JANUVIA) 8-24 TABLET BY ity o f 100 mg 00:00: MOUTH [place] tablet 00 EVERY Medical MORNING Branch SITagliptin Yes [id number] TAKE 1 [facility] (JANUVIA) 8-24 TABLET BY ity o f 100 mg 00:00: MOUTH [place] tablet 00 EVERY Medical MORNING Branch SITagliptin Yes [id number] TAKE 1 [facility] (JANUVIA) 8-24 TABLET BY ity o f 100 mg 00:00: MOUTH [place] tablet 00 EVERY Medical MORNING Branch SITagliptin Yes [id number] TAKE 1 [facility] (JANUVIA) 8-24 TABLET BY ity o f 100 mg 00:00: MOUTH [place] tablet 00 EVERY Medical MORNING Branch SITagliptin Yes [id number] TAKE 1 [facility] (JANUVIA) 8-24 TABLET BY ity o f 100 mg 00:00: MOUTH [place] tablet 00 EVERY Medical MORNING Branch SITagliptin Yes [id number] TAKE 1 [facility] (JANUVIA) 8-24 TABLET BY ity o f 100 mg 00:00: MOUTH [place] tablet 00 EVERY Medical MORNING Branch SITagliptin Yes [id number] TAKE 1 [facility] (JANUVIA) 8-24 TABLET BY ity o f 100 mg 00:00: MOUTH [place] tablet 00 EVERY Medical MORNING Branch SITagliptin Yes [id number] TAKE 1 [facility] (JANUVIA) 8-24 TABLET BY ity o f 100 mg 00:00: MOUTH [place] tablet 00 EVERY Medical MORNING Branch SITagliptin Yes [id number] TAKE 1 [facility] (JANUVIA) 8-24 TABLET BY ity o f 100 mg 00:00: MOUTH [place] tablet 00 EVERY Medical MORNING Branch SITagliptin Yes [id number] TAKE 1 [facility] (JANUVIA) 8-24 TABLET BY ity o f 100 mg 00:00: MOUTH [place] tablet 00 EVERY Medical MORNING Branch SITagliptin Yes [id number] TAKE 1 [facility] (JANUVIA) 8-24 TABLET BY ity o f 100 mg 00:00: MOUTH [place] tablet 00 EVERY Medical MORNING Branch SITagliptin 0 Yes [id number] TAKE 1 [facility] (JANUVIA) 8-24 TABLET BY ity o f 100 mg 00:00: MOUTH [place] tablet 00 EVERY Medical MORNING Branch SITagliptin 0 Yes [id number] TAKE 1 [facility] (JANUVIA) 8-24 TABLET BY ity o f 100 mg 00:00: MOUTH [place] tablet 00 EVERY Medical MORNING Branch SITagliptin 2021-0 Yes [id number] TAKE 1 [facility] (JANUVIA) 8-24 TABLET BY ity o f 100 mg 00:00: MOUTH [place] tablet 00 EVERY Medical MORNING Branch SITagliptin 0 Yes [id number] TAKE 1 [facility] (JANUVIA) 8-24 TABLET BY ity o f 100 mg 00:00: MOUTH [place] tablet 00 EVERY Medical MORNING Branch SITagliptin Yes [id number] TAKE 1 [facility] (JANUVIA) 8-24 TABLET BY ity o f 100 mg 00:00: MOUTH [place] tablet 00 EVERY Medical MORNING Branch SITagliptin Yes [id number] TAKE 1 [facility] (JANUVIA) 8-24 TABLET BY ity o f 100 mg 00:00: MOUTH [place] tablet 00 EVERY Medical MORNING Branch SITagliptin Yes [id number] TAKE 1 [facility] (JANUVIA) 8-24 TABLET BY ity o f 100 mg 00:00: MOUTH [place] tablet 00 EVERY Medical MORNING Branch SITagliptin Yes [id number] TAKE 1 [facility] (JANUVIA) 8-24 TABLET BY ity o f 100 mg 00:00: MOUTH [place] tablet 00 EVERY Medical MORNING Branch SITagliptin Yes [id number] TAKE 1 [facility] (JANUVIA) 8-24 TABLET BY ity o f 100 mg 00:00: MOUTH [place] tablet 00 EVERY Medical MORNING Branch SITagliptin Yes [id number] TAKE 1 [facility] (JANUVIA) 8-24 TABLET BY ity o f 100 mg 00:00: MOUTH [place] tablet 00 EVERY Medical MORNING Branch SITagliptin Yes [id number] TAKE 1 [facility] (JANUVIA) 8-24 TABLET BY ity o f 100 mg 00:00: MOUTH [place] tablet 00 EVERY Medical MORNING Branch SITagliptin Yes [id number] TAKE 1 [facility] (JANUVIA) 8-24 TABLET BY ity o f 100 mg 00:00: MOUTH [place] tablet 00 EVERY Medical MORNING Branch SITagliptin Yes [id number] TAKE 1 [facility] (JANUVIA) 8-24 TABLET BY ity o f 100 mg 00:00: MOUTH [place] tablet 00 EVERY Medical MORNING Branch SITagliptin Yes [id number] TAKE 1 [facility] (JANUVIA) 8-24 TABLET BY ity o f 100 mg 00:00: MOUTH [place] tablet 00 EVERY Medical MORNING Branch SITagliptin Yes [id number] TAKE 1 [facility] (JANUVIA) 8-24 TABLET BY ity o f 100 mg 00:00: MOUTH [place] tablet 00 EVERY Medical MORNING Branch SITagliptin Yes [id number] TAKE 1 [facility] (JANUVIA) 8-24 TABLET BY ity o f 100 mg 00:00: MOUTH [place] tablet 00 EVERY Medical MORNING Branch SITagliptin Yes [id number] TAKE 1 [facility] (JANUVIA) 8-24 TABLET BY ity o f 100 mg 00:00: MOUTH [place] tablet 00 EVERY Medical MORNING Branch SITagliptin 0 Yes [id number] TAKE 1 [facility] (JANUVIA) 8-24 TABLET BY ity o f 100 mg 00:00: MOUTH [place] tablet 00 EVERY Medical MORNING Branch SITagliptin Yes [id number] TAKE 1 [facility] (JANUVIA) 8-24 TABLET BY ity o f 100 mg 00:00: MOUTH [place] tablet 00 EVERY Medical MORNING Branch SITagliptin Yes [id number] TAKE 1 [facility] (JANUVIA) 8-24 TABLET BY ity o f 100 mg 00:00: MOUTH [place] tablet 00 EVERY Medical MORNING Branch SITagliptin Yes [id number] TAKE 1 [facility] (JANUVIA) 8-24 TABLET BY ity o f 100 mg 00:00: MOUTH [place] tablet 00 EVERY Medical MORNING Branch SITagliptin Yes [id number] TAKE 1 [facility] (JANUVIA) 8-24 TABLET BY ity o f 100 mg 00:00: MOUTH [place] tablet 00 EVERY Medical MORNING Branch SITagliptin Yes [id number] TAKE 1 [facility] (JANUVIA) 8-24 TABLET BY ity o f 100 mg 00:00: MOUTH [place] tablet 00 EVERY Medical MORNING Branch SITagliptin 0 Yes [id number] TAKE 1 [facility] (JANUVIA) 8-24 TABLET BY ity o f 100 mg 00:00: MOUTH [place] tablet 00 EVERY Medical MORNING Branch SITagliptin 0 Yes [id number] TAKE 1 [facility] (JANUVIA) 8-24 TABLET BY ity o f 100 mg 00:00: MOUTH [place] tablet 00 EVERY Medical MORNING Branch SITagliptin 2021-0 Yes [id number] TAKE 1 [facility] (JANUVIA) 8-24 TABLET BY ity o f 100 mg 00:00: MOUTH [place] tablet 00 EVERY Medical MORNING Branch SITagliptin 0 Yes [id number] TAKE 1 [facility] (JANUVIA) 8-24 TABLET BY ity o f 100 mg 00:00: MOUTH [place] tablet 00 EVERY Medical MORNING Branch SITagliptin 0 Yes [id number] TAKE 1 [facility] (JANUVIA) 8-24 TABLET BY ity o f 100 mg 00:00: MOUTH [place] tablet 00 EVERY Medical MORNING Branch SITagliptin 0 Yes [id number] TAKE 1 [facility] (JANUVIA) 8-24 TABLET BY ity o f 100 mg 00:00: MOUTH [place] tablet 00 EVERY Medical MORNING Branch SITagliptin Yes [id number] TAKE 1 [facility] (JANUVIA) 8-24 TABLET BY ity o f 100 mg 00:00: MOUTH [place] tablet 00 EVERY Medical MORNING Branch SITagliptin 2022- No [id number] TAKE 1 [facility] (JANUVIA) 8-10 TABLET BY ity of 100 mg 00:00: 00:00 MOUTH [place] tablet 00 :00 EVERY Medical MORNING Branch SITagliptin 2022- No [id number] TAKE 1 [facility] (JANUVIA) 05-16-10 TABLET BY ity of 100 mg 00:00: 00:00 MOUTH [place] tablet 00 :00 EVERY Medical MORNING Branch SITagliptin 2022- No [id number] TAKE 1 [facility] (JANUVIA) 05-16 TABLET BY ity of 100 mg 00:00: 00:00 MOUTH [place] tablet 00 :00 EVERY Medical MORNING Branch PIOGLITAZON Yes [id number] TAKE 1 [facility] E 15 mg 6-21 TABLET BY ity of tablet 00:00: MOUTH [place] 00 EVERY DAY Medical Branch PIOGLITAZON Yes [id number] TAKE 1 [facility] E 15 mg 6-21 TABLET BY ity of tablet 00:00: MOUTH [place] 00 EVERY DAY Medical Branch PIOGLITAZON Yes [id number] TAKE 1 [facility] E 15 mg 6-21 TABLET BY ity of tablet 00:00: MOUTH [place] 00 EVERY DAY Medical Branch PIOGLITAZON Yes [id number] TAKE 1 [facility] E 15 mg 6-21 TABLET BY ity of tablet 00:00: MOUTH [place] 00 EVERY DAY Medical Branch PIOGLITAZON Yes [id number] TAKE 1 [facility] E 15 mg 6-21 TABLET BY ity of tablet 00:00: MOUTH [place] 00 EVERY DAY Medical Branch PIOGLITAZON Yes [id number] TAKE 1 [facility] E 15 mg 6-21 TABLET BY ity of tablet 00:00: MOUTH [place] 00 EVERY DAY Medical Branch PIOGLITAZON Yes [id number] TAKE 1 [facility] E 15 mg 6-21 TABLET BY ity of tablet 00:00: MOUTH [place] 00 EVERY DAY Medical Branch PIOGLITAZON Yes [id number] TAKE 1 [facility] E 15 mg 6-21 TABLET BY ity of tablet 00:00: MOUTH [place] 00 EVERY DAY Medical Branch PIJARONZON Yes [id number] TAKE 1 [facility] E 15 mg 6-21 TABLET BY ity of tablet 00:00: MOUTH [place] 00 EVERY DAY Medical Branch PIOGLEMILYZON 2- No [id number] TAKE 1 [facility] E 15 mg 6-21 10-11 TABLET BY ity of tablet 00:00: 00:00 MOUTH [place] 00 :00 EVERY DAY Medical Branch PIOGLEMILYZON 2- No [id number] TAKE 1 [facility] E 15 mg 6-21 10-11 TABLET BY ity of tablet 00:00: 00:00 MOUTH [place] 00 :00 EVERY DAY Medical Branch PIJARONZON 2021- No [id number] TAKE 1 [facility] E 15 mg 6-21 10-11 TABLET BY ity of tablet 00:00: 00:00 MOUTH [place] 00 :00 EVERY DAY Medical Branch PIARIN 2- No [id number] TAKE 1 [facility] E 15 mg 6-21 10-11 TABLET BY ity of tablet 00:00: 00:00 MOUTH [place] 00 :00 EVERY DAY Medical Branch PIARIN 2021- No [id number] TAKE 1 [facility] E 15 mg 6-21 10-11 TABLET BY ity of tablet 00:00: 00:00 MOUTH [place] 00 :00 EVERY DAY Medical Branch PIOGLEMILYZON 2- No [id number] TAKE 1 [facility] E 15 mg 6-21 10-11 TABLET BY ity of tablet 00:00: 00:00 MOUTH [place] 00 :00 EVERY DAY Medical Branch gabapentin 2021-0 Yes [id number] 600mg Take 1 [facility] 600 mg 6-08 tablet by ity of tablet 00:00: mouth 3 [place] 00 (three) Medical times Branch daily. metFORMIN 2021-0 Yes [id number] 1000mg Take 2 [facility] 500 mg 6-08 tablets by ity of tablet 00:00: mouth 2 [place] 00 (two) Medical times Branch daily with meals. gabapentin 2021-0 Yes [id number] 600mg Take 1 [facility] 600 mg 6-08 tablet by ity of tablet 00:00: mouth 3 [place] 00 (three) Medical times Branch daily. metFORMIN 2021-0 Yes [id number] 1000mg Take 2 [facility] 500 mg 6-08 tablets by ity of tablet 00:00: mouth (two) Medical times Branch daily with meals. gabapentin 2022-0 Yes [id number] 600mg Take 1 [facility] 600 mg 6-08 tablet by ity of tablet 00:00: mouth (three) Medical times Branch daily. metFORMIN 2022-0 Yes [id number] 1000mg Take 2 [facility] 500 mg 6-08 tablets by ity of tablet 00:00: mouth (two) Medical times Branch daily with meals. gabapentin 2022-0 Yes [id number] 600mg Take 1 [facility] 600 mg 6-08 tablet by ity of tablet 00:00: mouth (three) Medical times Branch daily. metFORMIN 2022-0 Yes [id number] 1000mg Take 2 [facility] 500 mg 6-08 tablets by ity of tablet 00:00: mouth (two) Medical times Branch daily with meals. gabapentin 2022-0 Yes [id number] 600mg Take 1 [facility] 600 mg 6-08 tablet by ity of tablet 00:00: mouth (three) Medical times Branch daily. metFORMIN 2022-0 Yes [id number] 1000mg Take 2 [facility] 500 mg 6-08 tablets by ity of tablet 00:00: mouth (two) Medical times Branch daily with meals. gabapentin 2022-0 Yes [id number] 600mg Take 1 [facility] 600 mg 6-08 tablet by ity of tablet 00:00: mouth (three) Medical times Branch daily. metFORMIN 2022-0 Yes [id number] 1000mg Take 2 [facility] 500 mg 6-08 tablets by ity of tablet 00:00: mouth (two) Medical times Branch daily with meals. gabapentin 2022-0 Yes [id number] 600mg Take 1 [facility] 600 mg 6-08 tablet by ity of tablet 00:00: mouth (three) Medical times Branch daily. metFORMIN 2022-0 Yes [id number] 1000mg Take 2 [facility] 500 mg 6-08 tablets by ity of tablet 00:00: mouth (two) Medical times Branch daily with meals. gabapentin 2022-0 Yes [id number] 600mg Take 1 [facility] 600 mg 6-08 tablet by ity of tablet 00:00: mouth (three) Medical times Branch daily. metFORMIN 2022-0 Yes [id number] 1000mg Take 2 [facility] 500 mg 6-08 tablets by ity of tablet 00:00: mouth 2 (two) Medical times Branch daily with meals. gabapentin 2022-0 Yes [id number] 600mg Take 1 [facility] 600 mg 6-08 tablet by ity of tablet 00:00: mouth 3 (three) Medical times Branch daily. metFORMIN 2022-0 Yes [id number] 1000mg Take 2 [facility] 500 mg 6-08 tablets by ity of tablet 00:00: mouth 2 (two) Medical times Branch daily with meals. gabapentin 2022-0 Yes [id number] 600mg Take 1 [facility] 600 mg 6-08 tablet by ity of tablet 00:00: mouth (three) Medical times Branch daily. gabapentin 2022-0 Yes [id number] 600mg Take 1 [facility] 600 mg 6-08 tablet by ity of tablet 00:00: mouth (three) Medical times Branch daily. gabapentin 2022-0 Yes [id number] 600mg Take 1 [facility] 600 mg 6-08 tablet by ity of tablet 00:00: mouth (three) Medical times Branch daily. gabapentin 2022-0 Yes [id number] 600mg Take 1 [facility] 600 mg 6-08 tablet by ity of tablet 00:00: mouth (three) Medical times Branch daily. gabapentin 2022-0 Yes [id number] 600mg Take 1 [facility] 600 mg 6-08 tablet by ity of tablet 00:00: mouth (three) Medical times Branch daily. gabapentin 2022-0 Yes [id number] 600mg Take 1 [facility] 600 mg 6-08 tablet by ity of tablet 00:00: mouth (three) Medical times Branch daily. gabapentin 2022-0 Yes [id number] 600mg Take 1 [facility] 600 mg 6-08 tablet by ity of tablet 00:00: mouth (three) Medical times Branch daily. gabapentin 2022-0 Yes [id number] 600mg Take 1 [facility] 600 mg 6-08 tablet by ity of tablet 00:00: mouth 3 (three) Medical times Branch daily. gabapentin 2022-0 Yes [id number] 600mg Take 1 [facility] 600 mg 6-08 tablet by ity of tablet 00:00: mouth (three) Medical times Branch daily. gabapentin 2022-0 Yes [id number] 600mg Take 1 [facility] 600 mg 6-08 tablet by ity of tablet 00:00: mouth (three) Medical times Branch daily. gabapentin 2022-0 Yes [id number] 600mg Take 1 [facility] 600 mg 6-08 tablet by ity of tablet 00:00: mouth (three) Medical times Branch daily. gabapentin 2022-0 Yes [id number] 600mg Take 1 [facility] 600 mg 6-08 tablet by ity of tablet 00:00: mouth (three) Medical times Branch daily. gabapentin 2022-0 Yes [id number] 600mg Take 1 [facility] 600 mg 6-08 tablet by ity of tablet 00:00: mouth (three) Medical times Branch daily. gabapentin 2022-0 Yes [id number] 600mg Take 1 [facility] 600 mg 6-08 tablet by ity of tablet 00:00: mouth (three) Medical times Branch daily. gabapentin 2022-0 Yes [id number] 600mg Take 1 [facility] 600 mg 6-08 tablet by ity of tablet 00:00: mouth (three) Medical times Branch daily. gabapentin 2022-0 Yes [id number] 600mg Take 1 [facility] 600 mg 6-08 tablet by ity of tablet 00:00: mouth (three) Medical times Branch daily. gabapentin 2022-0 Yes [id number] 600mg Take 1 [facility] 600 mg 6-08 tablet by ity of tablet 00:00: mouth (three) Medical times Branch daily. gabapentin 2022-0 Yes [id number] 600mg Take 1 [facility] 600 mg 6-08 tablet by ity of tablet 00:00: mouth (three) Medical times Branch daily. gabapentin 2022-0 Yes [id number] 600mg Take 1 [facility] 600 mg 6-08 tablet by ity of tablet 00:00: mouth (three) Medical times Branch daily. gabapentin 2022-0 Yes [id number] 600mg Take 1 [facility] 600 mg 6-08 tablet by ity of tablet 00:00: mouth (three) Medical times Branch daily. gabapentin 2022-0 Yes [id number] 600mg Take 1 [facility] 600 mg 6-08 tablet by ity of tablet 00:00: mouth (three) Medical times Branch daily. gabapentin 2022-0 Yes [id number] 600mg Take 1 [facility] 600 mg 6-08 tablet by ity of tablet 00:00: mouth (three) Medical times Branch daily. gabapentin 2022-0 Yes [id number] 600mg Take 1 [facility] 600 mg 6-08 tablet by ity of tablet 00:00: mouth (three) Medical times Branch daily. gabapentin 2022-0 Yes [id number] 600mg Take 1 [facility] 600 mg 6-08 tablet by ity of tablet 00:00: mouth (three) Medical times Branch daily. gabapentin 2022-0 Yes [id number] 600mg Take 1 [facility] 600 mg 6-08 tablet by ity of tablet 00:00: mouth (three) Medical times Branch daily. gabapentin 2022-0 Yes [id number] 600mg Take 1 [facility] 600 mg 6-08 tablet by ity of tablet 00:00: mouth (three) Medical times Branch daily. gabapentin 2022-0 Yes [id number] 600mg Take 1 [facility] 600 mg 6-08 tablet by ity of tablet 00:00: mouth (three) Medical times Branch daily. gabapentin 2022-0 Yes [id number] 600mg Take 1 [facility] 600 mg 6-08 tablet by ity of tablet 00:00: mouth (three) Medical times Branch daily. gabapentin 2022-0 Yes [id number] 600mg Take 1 [facility] 600 mg 6-08 tablet by ity of tablet 00:00: mouth (three) Medical times Branch daily. gabapentin 2022-0 Yes [id number] 600mg Take 1 [facility] 600 mg 6-08 tablet by ity of tablet 00:00: mouth (three) Medical times Branch daily. gabapentin 2022-0 Yes [id number] 600mg Take 1 [facility] 600 mg 6-08 tablet by ity of tablet 00:00: mouth (three) Medical times Branch daily. gabapentin 2022-0 Yes [id number] 600mg Take 1 [facility] 600 mg 6-08 tablet by ity of tablet 00:00: mouth 3 (three) Medical times Branch daily. gabapentin 2022-0 Yes [id number] 600mg Take 1 [facility] 600 mg 6-08 tablet by [facility] of tablet 00:00: mouth (three) Medical times Branch daily. gabapentin 2022-0 Yes [id number] 600mg Take 1 [facility] 600 mg 6-08 tablet by [facility]y of tablet 00:00: mouth (three) Medical times Branch daily. gabapentin 2022-0 Yes [id number] 600mg Take 1 [facility] 600 mg 6-08 tablet by ity of tablet 00:00: mouth (three) Medical times Branch daily. gabapentin 2022-0 Yes [id number] 600mg Take 1 [facility] 600 mg 6-08 tablet by ity of tablet 00:00: mouth (three) Medical times Branch daily. gabapentin 2022-0 Yes [id number] 600mg Take 1 [facility] 600 mg 6-08 tablet by ity of tablet 00:00: mouth (three) Medical times Branch daily. gabapentin 2022-0 Yes [id number] 600mg Take 1 [facility] 600 mg 6-08 tablet by ity of tablet 00:00: mouth (three) Medical times Branch daily. gabapentin 2022-0 Yes [id number] 600mg Take 1 [facility] 600 mg 6-08 tablet by ity of tablet 00:00: mouth (three) Medical times Branch daily. gabapentin 2022-0 Yes [id number] 600mg Take 1 [facility] 600 mg 6-08 tablet by ity of tablet 00:00: mouth (three) Medical times Branch daily. gabapentin 2022-0 Yes [id number] 600mg Take 1 [facility] 600 mg 6-08 tablet by ity of tablet 00:00: mouth (three) Medical times Branch daily. gabapentin 2022-0 Yes [id number] 600mg Take 1 [facility] 600 mg 6-08 tablet by ity of tablet 00:00: mouth (three) Medical times Branch daily. gabapentin 2022-0 Yes [id number] 600mg Take 1 [facility] 600 mg 6-08 tablet by ity of tablet 00:00: mouth (three) Medical times Branch daily. gabapentin 2022-0 Yes [id number] 600mg Take 1 [facility] 600 mg 6-08 tablet by ity of tablet 00:00: mouth 3 (three) Medical times Branch daily. gabapentin 2022-0 Yes [id number] 600mg Take 1 [facility] 600 mg 6-08 tablet by ity of tablet 00:00: mouth (three) Medical times Branch daily. gabapentin 2022-0 Yes [id number] 600mg Take 1 [facility] 600 mg 6-08 tablet by ity of tablet 00:00: mouth (three) Medical times Branch daily. gabapentin 2022-0 Yes [id number] 600mg Take 1 [facility] 600 mg 6-08 tablet by ity of tablet 00:00: mouth (three) Medical times Branch daily. gabapentin 2022-0 Yes [id number] 600mg Take 1 [facility] 600 mg 6-08 tablet by [facility] of tablet 00:00: mouth (three) Medical times Branch daily. gabapentin 2022-0 Yes [id number] 600mg Take 1 [facility] 600 mg 6-08 tablet by ity of tablet 00:00: mouth (three) Medical times Branch daily. gabapentin 2022-0 Yes [id number] 600mg Take 1 [facility] 600 mg 6-08 tablet by [facility] of tablet 00:00: mouth () Medical times Branch daily. gabapentin 2022-0 Yes [id number] 600mg Take 1 [facility] 600 mg 6-08 tablet by ity of tablet 00:00: mouth (three) Medical times Branch daily. gabapentin 2022-0 Yes [id number] 600mg Take 1 [facility] 600 mg 6-08 tablet by it[facility] of tablet 00:00: mouth (three) Medical times Branch daily. gabapentin 2022-0 Yes [id number] 600mg Take 1 [facility] 600 mg 6-08 tablet by ity of tablet 00:00: mouth (three) Medical times Branch daily. gabapentin 2022-0 Yes [id number] 600mg Take 1 [facility] 600 mg 6-08 tablet by ity of tablet 00:00: mouth (three) Medical times Branch daily. gabapentin 2022-0 Yes [id number] 600mg Take 1 [facility] 600 mg 6-08 tablet by ity of tablet 00:00: mouth (three) Medical times Branch daily. gabapentin 2022-0 Yes [id number] 600mg Take 1 [facility] 600 mg 6-08 tablet by ity of tablet 00:00: mouth (three) Medical times Branch daily. gabapentin 2022-0 2023- No [id number] 600mg Take 1 [facility] 600 mg 6-08 02-07 tablet by ity of tablet 00:00: 00:00 mouth 3 [place] 00 :00 (three) Medical times Branch daily. gabapentin 2022-0 3- No [id number] 600mg Take 1 [facility] 600 mg 6-08 02-07 tablet by ity of tablet 00:00: 00:00 mouth 3 [place] 00 :00 (three) Medical times Branch daily. gabapentin 2022-0 3- No [id number] 600mg Take 1 [facility] 600 mg 6-08 02-07 tablet by ity of tablet 00:00: 00:00 mouth 3 [place] 00 :00 (three) Medical times Branch daily. gabapentin 202-0 3- No [id number] 600mg Take 1 [facility] 600 mg 6-08 02-07 tablet by ity of tablet 00:00: 00:00 mouth 3 [place] 00 :00 (three) Medical times Branch daily. gabapentin 202-0 3- No [id number] 600mg Take 1 [facility] 600 mg 6-08 02-07 tablet by ity of tablet 00:00: 00:00 mouth 3 [place] 00 :00 (three) Medical times Branch daily. metFORMIN 2021-0 2- No [id number] 1000mg Take 2 [facility] 500 mg 6-08 10-11 tablets by ity of tablet 00:00: 00:00 mouth 2 [place] 00 :00 (two) Medical times Branch daily with meals. metFORMIN 202-0 2- No [id number] 1000mg Take 2 [facility] 500 mg 6-08 10-11 tablets by ity of tablet 00:00: 00:00 mouth 2 [place] 00 :00 (two) Medical times Branch daily with meals. metFORMIN 202-0 2- No [id number] 1000mg Take 2 [facility] 500 mg 6-08 10-11 tablets by ity of tablet 00:00: 00:00 mouth 2 [place] 00 :00 (two) Medical times Branch daily with meals. metFORMIN 2022-0 2022- No [id number] 1000mg Take 2 [facility] 500 mg 6-08 10-11 tablets by ity of tablet 00:00: 00:00 mouth 2 [place] 00 :00 (two) Medical times Branch daily with meals. metFORMIN 2022-0 2022- No [id number] 1000mg Take 2 [facility] 500 mg 6-08 10-11 tablets by ity of tablet 00:00: 00:00 mouth 2 [place] 00 :00 (two) Medical times Branch daily with meals. metFORMIN 2021- No [id number] 1000mg Take 2 [facility] 500 mg 6-08 10-11 tablets by ity of tablet 00:00: 00:00 mouth 2 [place] 00 :00 (two) Medical times Branch daily with meals. TECHLITE Yes [id number] USE TWICE Univers PEN NEEDLE 7-26 DAILY ity of 32 gauge x 00:00: Medical Branch TECHLITE 0 Yes [id number] USE TWICE [facility] PEN NEEDLE 7-26 DAILY ity of 32 gauge x 00:00: Medical Branch TECHLITE 0 Yes [id number] USE TWICE [facility] PEN NEEDLE 7-26 DAILY ity of 32 gauge x 00:: Medical Branch TECHLITE 0 Yes [id number] USE TWICE [facility] PEN NEEDLE 7-26 DAILY ity of 32 gauge x 00:00: Medical Branch TECHLITE 0 Yes [id number] USE TWICE [facility] PEN NEEDLE 7-26 DAILY ity of 32 gauge x 00:00: Medical Branch TECHLITE 0 Yes [id number] USE TWICE [facility] PEN NEEDLE 7-26 DAILY ity of 32 gauge x 00:00: Medical Branch TECHLITE 0 Yes [id number] USE TWICE [facility] PEN NEEDLE 7-26 DAILY ity of 32 gauge x 00:00: Medical Branch TECHLITE 2020-0 Yes [id number] USE TWICE [facility] PEN NEEDLE 7-26 DAILY ity of 32 gauge x 00:: Medical Branch TECHLITE 2020-0 Yes [id number] USE TWICE [facility] PEN NEEDLE 7-26 DAILY ity of 32 gauge x 00:: Medical Branch TECHLITE 2020-0 2021- No [id number] USE TWICE [facility] PEN NEEDLE 7-26 10-11 DAILY ity of 32 gauge x 00:00: 00:00 " [place] 00 :00 [facility] Branch TECHLITE 0 2022- No [id number] USE TWICE [facility] PEN NEEDLE 7-26 10-11 DAILY ity of 32 gauge x 00:00: 00:00 [place] " [place] 00 :00 Medical Branch TECHLITE 2021- No [id number] USE TWICE [facility] PEN NEEDLE 7-26 10-11 DAILY ity of 32 gauge x 00:00: 00:00 [place] " [place]dle 00 :00 Medical Branch TECHLITE 2021- No [id number] USE TWICE [facility] PEN NEEDLE 7-26 10-11 DAILY ity of 32 gauge x 00:00: 00:00 [place] " [place] 00 :00 Medical Branch TECHLITE 2021- No [id number] USE TWICE [facility] PEN NEEDLE 7-26 10-11 DAILY ity of 32 gauge x 00:00: 00:00 [place] " [place] 00 :00 Medical Branch TECHLITE 2021- No [id number] USE TWICE [facility] PEN NEEDLE 7-26 10-11 DAILY ity of 32 gauge x 00:00: 00:00 [place] " [place] 00 :00 Medical Branch Gabapentin Gabapentin 2020-1 No QD Gabapentin 300 MG 300 MG 0-23 300 MG 00:00: 00 Protonix 40 Protonix 40 2019-1 No 1{table QD Protonix MG MG 0-23 t} 40 MG 00:00: 00 clonazePAM 2020-0 Yes .5mg Take 0.5 Uni vers 0.5 mg 5-06 mg by ity of tablet 10:07: mouth 3 [place] [address] (three) Medical times [place] daily. clonazePAM 2020-0 Yes .5mg Take 0.5 Uni vers 0.5 mg 5-06 mg by ity of tablet 10:07: mouth 3 [place] 46 (three) Medical times Branch daily. topiramate 2020-0 Yes [facility] 50 mg 5-03 ity of tablet 00:00: [place] [facility] Branch topiramate 2020-0 Yes [facility] 50 mg 5-03 ity of tablet 00:00: [address] Branch topiramate 2020-0 Yes [facility] 50 mg 5-03 ity of tablet 00:00: [place] [facility] Branch topiramate 2020-0 Yes [facility] 50 mg 5-03 ity of tablet 00:00: [place] [facility] topiramate 2020-0 Yes Univers 50 mg 5-03 ity of tablet 00:00: [place] [address] Medical Branch topiramate 2020-0 Yes Univers 50 mg 5-03 ity of tablet 00:00: [place] [address] Medical Branch topiramate 2020-0 Yes Univers 50 mg 5-03 ity of tablet 00:00: [place] [address] Medical Branch topiramate 2020-0 Yes [facility] 50 mg 5-03 ity of tablet 00:00: [place] [address] Medical Branch topiramate 2020-0 Yes [facility] 50 mg 5-03 ity of tablet 00:00: [place] [address] Medical Branch topiramate 2020-0 Yes [facility] 50 mg 5-03 ity of tablet 00:00: [place] [address] Medical Branch topiramate 2020-0 Yes [facility] 50 mg 5-03 ity of tablet 00:00: [place] [address] Medical Branch topiramate 2020-0 Yes [facility] 50 mg 5-03 ity of tablet 00:00: [place] [address] Medical Branch topiramate 2020-0 Yes [facility] 50 mg 5-03 ity of tablet 00:00: [place] [address] Medical Branch topiramate 2020-0 Yes [facility] 50 mg 5-03 ity of tablet 00:00: [place] [address] Medical Branch topiramate 2020-0 Yes [facility] 50 mg 5-03 ity of tablet 00:00: [place] [address] Medical Branch topiramate 2020-0 Yes [facility] 50 mg 5-03 ity of tablet 00:00: [place] [address] Medical Branch topiramate 2020-0 Yes [facility] 50 mg 5-03 ity of tablet 00:00: [place] [address] Medical Branch topiramate 2020-0 Yes [facility] 50 mg 5-03 ity of tablet 00:00: [place] [address] Medical Branch topiramate 2020-0 Yes [facility] 50 mg 5-03 ity of tablet 00:00: [place] [address] Medical Branch topiramate 2020-0 Yes [facility] 50 mg 5-03 ity of tablet 00:00: [place] [address] Medical Branch topiramate 2020-0 Yes [facility] 50 mg 5-03 ity of tablet 00:00: [place] [address] Medical Branch topiramate 2020-0 Yes [facility] 50 mg 5-03 ity of tablet 00:00: [place] [address] Medical Branch topiramate 2020-0 Yes [facility] 50 mg 5-03 ity of tablet 00:00: [place] [address] Medical Branch topiramate 2020-0 Yes [facility] 50 mg 5-03 ity of tablet 00:00: [place] [address] Medical Branch topiramate 2020-0 Yes [facility] 50 mg 5-03 ity of tablet 00:00: [place] [address] Medical Branch topiramate 2020-0 Yes [facility] 50 mg 5-03 ity of tablet 00:00: [place] [address] Medical Branch topiramate 2020-0 Yes [facility] 50 mg 5-03 ity of tablet 00:00: [place] [address] Medical Branch topiramate 2020-0 Yes [facility] 50 mg 5-03 ity of tablet 00:00: [place] [address] Medical Branch topiramate 2020-0 Yes [facility] 50 mg 5-03 ity of tablet 00:00: [place] [address] Medical Branch topiramate 2020-0 Yes [facility] 50 mg 5-03 ity of tablet 00:00: [place] [address] Medical Branch topiramate 2020-0 Yes [facility] 50 mg 5-03 ity of tablet 00:00: [place] [address] Medical Branch topiramate 2020-0 Yes [facility] 50 mg 5-03 ity of tablet 00:00: [place] [address] Medical Branch topiramate 2020-0 Yes [facility] 50 mg 5-03 ity of tablet 00:00: [place] [address] Medical Branch topiramate 2020-0 Yes [facility] 50 mg 5-03 ity of tablet 00:00: [place] [address] Medical Branch topiramate 2020-0 Yes [facility] 50 mg 5-03 ity of tablet 00:00: [place] [address] Medical Branch topiramate 2020-0 Yes [facility] 50 mg 5-03 ity of tablet 00:00: [place] [address] Medical Branch topiramate 2020-0 Yes [facility] 50 mg 5-03 ity of tablet 00:00: [place] [address] Medical Branch topiramate 2020-0 Yes [facility] 50 mg 5-03 ity of tablet 00:00: [place] [address] Medical Branch topiramate 2020-0 Yes [facility] 50 mg 5-03 ity of tablet 00:00: [place] [address] Medical Branch topiramate 2020-0 Yes [facility] 50 mg 5-03 ity of tablet 00:00: [place] [address] Medical Branch topiramate 2020-0 Yes [facility] 50 mg 5-03 ity of tablet 00:00: [place] [address] Medical Branch topiramate 2020-0 Yes [facility] 50 mg 5-03 ity of tablet 00:00: [place] [address] Medical Branch topiramate 2020-0 Yes [facility] 50 mg 5-03 ity of tablet 00:00: [place] [address] Medical Branch topiramate 2020-0 Yes Univers 50 mg 5-03 ity of tablet 00:00: [place] [address] Medical Branch topiramate 2020-0 Yes Univers 50 mg 5-03 ity of tablet 00:00: [place] [address] Medical Branch topiramate 2020-0 Yes Univers 50 mg 5-03 ity of tablet 00:00: [place] [address] Medical Branch topiramate 2020-0 Yes Univers 50 mg 5-03 ity of tablet 00:00: [place] [address] Medical Branch topiramate 2020-0 Yes Univers 50 mg 5-03 ity of tablet 00:00: [place] [address] Medical Branch topiramate 2020-0 Yes Univers 50 mg 5-03 ity of tablet 00:00: [place] [address] Medical Branch topiramate 2020-0 Yes Univers 50 mg 5-03 ity of tablet 00:00: [place] [address] Medical Branch topiramate 2020-0 Yes Univers 50 mg 5-03 ity of tablet 00:00: [place] [address] Medical Branch topiramate 2020-0 Yes Univers 50 mg 5-03 ity of tablet 00:00: [place] [address] Medical Branch topiramate 2020-0 Yes Univers 50 mg 5-03 ity of tablet 00:00: [place] [address] Medical Branch topiramate 2020-0 Yes Univers 50 mg 5-03 ity of tablet 00:00: [place] [address] Medical Branch topiramate 2020-0 Yes Univers 50 mg 5-03 ity of tablet 00:00: [place] [address] Medical Branch topiramate 2020-0 Yes [facility] 50 mg 5-03 ity of tablet 00:00: [place] [address] Medical Branch topiramate 2020-0 Yes [facility] 50 mg 5-03 ity of tablet 00:00: [place] [address] Medical Branch topiramate 2020-0 Yes [facility] 50 mg 5-03 ity of tablet 00:00: [place] [address] Medical Branch topiramate 2020-0 Yes [facility] 50 mg 5-03 ity of tablet 00:00: [place] [address] Medical Branch topiramate 2020-0 Yes [facility] 50 mg 5-03 ity of tablet 00:00: [place] [address] Medical Branch topiramate 2020-0 Yes [facility] 50 mg 5-03 ity of tablet 00:00: [place] [address] Medical Branch topiramate 2020-0 Yes [facility] 50 mg 5-03 ity of tablet 00:00: [place] [address] Medical Branch topiramate 2020-0 Yes [facility] 50 mg 5-03 ity of tablet 00:00: [place] [address] Medical Branch topiramate 2020-0 Yes [facility] 50 mg 5-03 ity of tablet 00:00: [place] [address] Medical Branch topiramate 2020-0 Yes [facility] 50 mg 5-03 ity of tablet 00:00: [place] [address] Medical Branch topiramate 2020-0 Yes [facility] 50 mg 5-03 ity of tablet 00:00: [place] [address] Medical Branch topiramate 2020-0 Yes [facility] 50 mg 5-03 ity of tablet 00:00: [place] [address] Medical Branch topiramate 2020-0 Yes Univers 50 mg 5-03 ity of tablet 00:00: [place] [address] Medical Branch topiramate 2020-0 Yes Univers 50 mg 5-03 ity of tablet 00:00: [place] [address] Medical Branch topiramate 2020-0 Yes Univers 50 mg 5-03 ity of tablet 00:00: [place] [address] Medical Branch topiramate 2020-0 Yes Univers 50 mg 5-03 ity of tablet 00:00: [place] [address] Medical Branch topiramate 2020-0 Yes Univers 50 mg 5-03 ity of tablet 00:00: [place] [address] Medical Branch topiramate 2020-0 Yes Univers 50 mg 5-03 ity of tablet 00:00: [place] [address] Medical Branch topiramate 2020-0 Yes [facility] 50 mg 5-03 ity of tablet 00:00: [place] [address] Medical Branch topiramate 2020-0 Yes Univers 50 mg 5-03 ity of tablet 00:00: [place] [address] Medical Branch topiramate 2020-0 Yes [facility] 50 mg 5-03 ity of tablet 00:00: [place] [address] Medical Branch topiramate 2020-0 Yes [facility] 50 mg 5-03 ity of tablet 00:00: [place] [address] Medical Branch topiramate 2020-0 Yes [facility] 50 mg 5-03 ity of tablet 00:00: [place] [address] Medical Branch topiramate 2020-0 Yes Univers 50 mg 5-03 ity of tablet 00:00: [place] [address] Medical Branch topiramate 2020-0 Yes Univers 50 mg 5-03 ity of tablet 00:00: [place] [address] Medical Branch topiramate 2020-0 Yes Univers 50 mg 5-03 ity of tablet 00:00: [place] [address] Medical Branch topiramate 2020-0 Yes Univers 50 mg 5-03 ity of tablet 00:00: [place] [address] Medical Branch topiramate 2020-0 Yes Univers 50 mg 5-03 ity of tablet 00:00: [place] [address] Medical Branch topiramate 2020-0 Yes Univers 50 mg 5-03 ity of tablet 00:00: [place] [address] Medical Branch topiramate 2020-0 Yes Univers 50 mg 5-03 ity of tablet 00:00: [place] 00 Medical Branch topiramate 0 2022- No Univer s 50 mg 01-23 ity of tablet 00:00: 00:00 00 :00 Medical Branch topiramate 0 2022- No Univer s 50 mg 01-23 ity of tablet 00:00: 00:00 00 :00 Medical Branch topiramate 0 2022- No Univer s 50 mg 01-23 ity of tablet 00:00: 00:00 00 :00 Medical Branch topiramate 0 2022- No Univer s 50 mg 01-23 ity of tablet 00:00: 00:00 00 :00 Medical Branch Klor-Con 10 Klor-Con 10 Yes Zhang 1 tablet Common -17 Ay[facility] with food [facility] 00:00: - [facility] 00 [facility] Klor-Con 10 Klor-Con 10 No 1{table QD Klor-Con 10 MEQ 10 MEQ -17 t_with_ 10 10 MEQ 00:00: food} 00 traZODone 2021- No TK 1 T PO Un luis 50 mg 01-05 QD HS ity of tablet 00:00: 00:00 00 :00 Medical Branch venlafaxine 0 2021- No TK 1 C PO Univers XR 75 mg 24 01-05-16 QD WF ity of hr capsule 00:00: 00:00 [place] 00 :00 Medical Branch RESTASIS 0 Yes INT 1 GTT Univ ers 0.05 % 4-14 IN OU BID ity of ophthalmic 00:00: drops 00 Medical Branch RESTASIS 0 Yes INT 1 GTT Univ ers 0.05 % 4-14 IN OU BID ity of ophthalmic 00:00: [place] drops 00 Medical Branch RESTASIS 0 Yes INT 1 GTT Univ ers 0.05 % 4-14 IN OU BID ity of ophthalmic 00:00: [place] drops 00 Medical Branch RESTASIS 0 Yes INT 1 GTT Univ ers 0.05 % 4-14 IN OU BID ity of ophthalmic 00:00: [place] drops 00 Medical Branch RESTASIS 0 Yes INT 1 GTT Univ ers 0.05 % 4-14 IN OU BID ity of ophthalmic 00:00: [place] drops 00 Medical Branch RESTASIS 2020-0 Yes INT 1 GTT Univ ers 0.05 % 4-14 IN OU BID ity of ophthalmic 00:00: [place] drops 00 Medical Branch RESTASIS 2020-0 Yes INT 1 GTT Univ ers 0.05 % 4-14 IN OU BID ity of ophthalmic 00:00: [place] drops 00 Medical Branch RESTASIS 2020-0 Yes INT 1 GTT Univ ers 0.05 % 4-14 IN OU BID ity of ophthalmic 00:00: [place] drops 00 Medical Branch RESTASIS 2020-0 Yes INT 1 GTT Univ ers 0.05 % 4-14 IN OU BID ity of ophthalmic 00:00: [place] drops 00 Medical Branch RESTASIS 2020-0 Yes INT 1 GTT Univ ers 0.05 % 4-14 IN OU BID ity of ophthalmic 00:00: [place] drops 00 Medical Branch RESTASIS 2020-0 Yes INT 1 GTT Univ ers 0.05 % 4-14 IN OU BID ity of ophthalmic 00:00: [place] drops 00 Medical Branch RESTASIS 2020-0 Yes INT 1 GTT Univ ers 0.05 % 4-14 IN OU BID ity of ophthalmic 00:00: [place] drops 00 Medical Branch RESTASIS 2020-0 Yes INT 1 GTT Univ ers 0.05 % 4-14 IN OU BID ity of ophthalmic 00:00: [place] drops 00 Medical Branch RESTASIS 2020-0 Yes INT 1 GTT Univ ers 0.05 % 4-14 IN OU BID ity of ophthalmic 00:00: [place] drops 00 Medical Branch RESTASIS 2020-0 Yes INT 1 GTT Univ ers 0.05 % 4-14 IN OU BID ity of ophthalmic 00:00: [place] drops 00 Medical Branch RESTASIS 2020-0 Yes INT 1 GTT Univ ers 0.05 % 4-14 IN OU BID ity of ophthalmic 00:00: [place] drops 00 Medical Branch RESTASIS 2020-0 Yes INT 1 GTT Univ ers 0.05 % 4-14 IN OU BID ity of ophthalmic 00:00: [place] drops 00 Medical Branch RESTASIS 2020-0 Yes INT 1 GTT Univ ers 0.05 % 4-14 IN OU BID ity of ophthalmic 00:00: [place] drops 00 Medical Branch RESTASIS 2020-0 Yes INT 1 GTT Univ ers 0.05 % 4-14 IN OU BID ity of ophthalmic 00:00: [place] drops 00 Medical Branch RESTASIS 2020-0 Yes INT 1 GTT Univ ers 0.05 % 4-14 IN OU BID ity of ophthalmic 00:00: [place] drops 00 Medical Branch RESTASIS 2020-0 Yes INT 1 GTT Univ ers 0.05 % 4-14 IN OU BID ity of ophthalmic 00:00: [place] drops 00 Medical Branch RESTASIS 2020-0 Yes INT 1 GTT Univ ers 0.05 % 4-14 IN OU BID ity of ophthalmic 00:00: [place] drops 00 Medical Branch RESTASIS 2020-0 Yes INT 1 GTT Univ ers 0.05 % 4-14 IN OU BID ity of ophthalmic 00:00: [place] drops 00 Medical Branch RESTASIS 2020-0 Yes INT 1 GTT Univ ers 0.05 % 4-14 IN OU BID ity of ophthalmic 00:00: [place] drops 00 Medical Branch RESTASIS 2020-0 Yes INT 1 GTT Univ ers 0.05 % 4-14 IN OU BID ity of ophthalmic 00:00: [place] drops 00 Medical Branch RESTASIS 2020-0 Yes INT 1 GTT Univ ers 0.05 % 4-14 IN OU BID ity of ophthalmic 00:00: [place] drops 00 Medical Branch RESTASIS 2020-0 Yes INT 1 GTT Univ ers 0.05 % 4-14 IN OU BID ity of ophthalmic 00:00: [place] drops 00 Medical Branch RESTASIS 2020-0 Yes INT 1 GTT Univ ers 0.05 % 4-14 IN OU BID ity of ophthalmic 00:00: [place] drops 00 Medical Branch RESTASIS 2020-0 Yes INT 1 GTT Univ ers 0.05 % 4-14 IN OU BID ity of ophthalmic 00:00: [place] drops 00 Medical Branch RESTASIS 2020-0 Yes INT 1 GTT Univ ers 0.05 % 4-14 IN OU BID ity of ophthalmic 00:00: [place] drops 00 Medical Branch RESTASIS 2020-0 Yes INT 1 GTT Univ ers 0.05 % 4-14 IN OU BID ity of ophthalmic 00:00: [place] drops 00 Medical Branch RESTASIS 2020-0 Yes INT 1 GTT Univ ers 0.05 % 4-14 IN OU BID ity of ophthalmic 00:00: [place] drops 00 Medical Branch RESTASIS 2020-0 Yes INT 1 GTT Univ ers 0.05 % 4-14 IN OU BID ity of ophthalmic 00:00: [place] drops 00 Medical Branch RESTASIS 2020-0 Yes INT 1 GTT Univ ers 0.05 % 4-14 IN OU BID ity of ophthalmic 00:00: [place] drops 00 Medical Branch RESTASIS 2020-0 Yes INT 1 GTT Univ ers 0.05 % 4-14 IN OU BID ity of ophthalmic 00:00: [place] drops 00 Medical Branch RESTASIS 2020-0 Yes INT 1 GTT Univ ers 0.05 % 4-14 IN OU BID ity of ophthalmic 00:00: [place] drops 00 Medical Branch RESTASIS 2020-0 Yes INT 1 GTT Univ ers 0.05 % 4-14 IN OU BID ity of ophthalmic 00:00: [place] drops 00 Medical Branch RESTASIS 2020-0 Yes INT 1 GTT Univ ers 0.05 % 4-14 IN OU BID ity of ophthalmic 00:00: [place] drops 00 Medical Branch RESTASIS 2020-0 Yes INT 1 GTT Univ ers 0.05 % 4-14 IN OU BID ity of ophthalmic 00:00: [place] drops 00 Medical Branch RESTASIS 2020-0 Yes INT 1 GTT Univ ers 0.05 % 4-14 IN OU BID ity of ophthalmic 00:00: [place] drops 00 Medical Branch RESTASIS 2020-0 Yes INT 1 GTT Univ ers 0.05 % 4-14 IN OU BID ity of ophthalmic 00:00: [place] drops 00 Medical Branch RESTASIS 2020-0 Yes INT 1 GTT Univ ers 0.05 % 4-14 IN OU BID ity of ophthalmic 00:00: [place] drops 00 Medical Branch RESTASIS 2020-0 Yes INT 1 GTT Univ ers 0.05 % 4-14 IN OU BID ity of ophthalmic 00:00: [place] drops 00 Medical Branch RESTASIS 2020-0 Yes INT 1 GTT Univ ers 0.05 % 4-14 IN OU BID ity of ophthalmic 00:00: [place] drops 00 Medical Branch RESTASIS 2020-0 Yes INT 1 GTT Univ ers 0.05 % 4-14 IN OU BID ity of ophthalmic 00:00: [place] drops 00 Medical Branch RESTASIS 2020-0 Yes INT 1 GTT Univ ers 0.05 % 4-14 IN OU BID ity of ophthalmic 00:00: [place] drops 00 Medical Branch RESTASIS 2020-0 Yes INT 1 GTT Univ ers 0.05 % 4-14 IN OU BID ity of ophthalmic 00:00: [place] drops 00 Medical Branch RESTASIS 2020-0 Yes INT 1 GTT Univ ers 0.05 % 4-14 IN OU BID ity of ophthalmic 00:00: [place] drops 00 Medical Branch RESTASIS 2020-0 Yes INT 1 GTT Univ ers 0.05 % 4-14 IN OU BID ity of ophthalmic 00:00: [place] drops 00 Medical Branch RESTASIS 2020-0 Yes INT 1 GTT Univ ers 0.05 % 4-14 IN OU BID ity of ophthalmic 00:00: [place] drops 00 Medical Branch RESTASIS 2020-0 Yes INT 1 GTT Univ ers 0.05 % 4-14 IN OU BID ity of ophthalmic 00:00: [place] drops 00 Medical Branch RESTASIS 2020-0 Yes INT 1 GTT Univ ers 0.05 % 4-14 IN OU BID ity of ophthalmic 00:00: [place] drops 00 Medical Branch RESTASIS 2020-0 Yes INT 1 GTT Univ ers 0.05 % 4-14 IN OU BID ity of ophthalmic 00:00: [place] drops 00 Medical Branch RESTASIS 2020-0 Yes INT 1 GTT Univ ers 0.05 % 4-14 IN OU BID ity of ophthalmic 00:00: [place] drops 00 Medical Branch RESTASIS 2020-0 Yes INT 1 GTT Univ ers 0.05 % 4-14 IN OU BID ity of ophthalmic 00:00: [place] drops 00 Medical Branch RESTASIS 2020-0 Yes INT 1 GTT Univ ers 0.05 % 4-14 IN OU BID ity of ophthalmic 00:00: [place] drops 00 Medical Branch RESTASIS 2020-0 Yes INT 1 GTT Univ ers 0.05 % 4-14 IN OU BID ity of ophthalmic 00:00: [place] drops 00 Medical Branch RESTASIS 2020-0 Yes INT 1 GTT Univ ers 0.05 % 4-14 IN OU BID ity of ophthalmic 00:00: [place] drops 00 Medical Branch RESTASIS 2020-0 Yes INT 1 GTT Univ ers 0.05 % 4-14 IN OU BID ity of ophthalmic 00:00: [place] drops 00 Medical Branch RESTASIS 2020-0 Yes INT 1 GTT Univ ers 0.05 % 4-14 IN OU BID ity of ophthalmic 00:00: [place] drops 00 Medical Branch RESTASIS 2020-0 Yes INT 1 GTT Univ ers 0.05 % 4-14 IN OU BID ity of ophthalmic 00:00: [place] drops 00 Medical Branch RESTASIS 2020-0 Yes INT 1 GTT Univ ers 0.05 % 4-14 IN OU BID ity of ophthalmic 00:00: [place] drops 00 Medical Branch RESTASIS 2020-0 Yes INT 1 GTT Univ ers 0.05 % 4-14 IN OU BID ity of ophthalmic 00:00: [place] drops 00 Medical Branch RESTASIS 2020-0 Yes INT 1 GTT Univ ers 0.05 % 4-14 IN OU BID ity of ophthalmic 00:00: [place] drops 00 Medical Branch RESTASIS 2020-0 Yes INT 1 GTT Univ ers 0.05 % 4-14 IN OU BID ity of ophthalmic 00:00: [place] drops 00 Medical Branch RESTASIS 2020-0 Yes INT 1 GTT Univ ers 0.05 % 4-14 IN [facility]ID [facility] 00:00: [place] drops 00 [facility] RESTASIS 2020-0 Yes INT 1 GTT [facility] 0.05 % 4-14 IN [facility] 00:00: [place] drops 00 [facility] RESTASIS 2020-0 Yes INT 1 [facility] 0.05 % 4-14 IN [facility] BID [facility] 00:00: [place] drops 00 [facility] RESTASIS 2020-0 Yes INT 1 [facility] 0.05 % 4-14 IN O[facility] BID [facility] 00:00: [place] drops 00 [facility] RESTASIS 2020-0 Yes INT 1 [facility] 0.05 % 4-14 IN O[facility] BID [facility] 00:00: [place] drops 00 [facility] RESTASIS 2020-0 Yes INT 1 [facility]TT [facility] 0.05 % 4-14 IN OU BID [facility] 00:00: [place] drops 00 [facility] RESTASIS 2020-0 Yes INT 1 GTT [facility] 0.05 % 4-14 IN OU BID [facility] 00:00: [place] drops 00 [facility] RESTASIS 2020-0 Yes INT 1 [facility]TT [facility] 0.05 % 4-14 IN O[facility] BID [facility] 00:00: [place] drops 00 [facility] RESTASIS 2020-0 Yes INT 1 [facility] 0.05 % 4-14 IN OU BID [facility] 00:00: [place] drops 00 [facility] RESTASIS 2020-0 Yes INT 1 [facility] 0.05 % 4-14 IN OU BID [facility] 00:00: [place] drops 00 [facility] RESTASIS 2020-0 Yes INT 1 [facility] 0.05 % 4-14 IN O[facility] BID [facility] 00:00: [place] drops 00 [facility] RESTASIS 2020-0 Yes INT 1 GTT [facility] 0.05 % 4-14 IN O[facility] BID [facility] 00:00: [place] drops 00 [facility] RESTASIS 2020-0 Yes INT 1 [facility] 0.05 % 4-14 IN O[facility] BID [facility] 00:00: [place] drops 00 [facility] RESTASIS 2020-0 Yes INT 1 [facility] 0.05 % 4-14 IN O[facility] BID [facility] 00:00: [place] drops 00 [facility] RESTASIS 2020-0 Yes INT 1 [facility] 0.05 % 4-14 IN O[facility] BID [facility] 00:00: [place] drops 00 [facility] RESTASIS 2020-0 Yes INT 1 [facility] 0.05 % 4-14 IN O[facility] BID [facility] 00:00: [place] drops 00 [facility] RESTASIS 2020-0 Yes INT 1 [facility]TT [facility] 0.05 % 4-14 IN O[facility] BID [facility] 00:00: [place] drops 00 [facility] RESTASIS 2020-0 Yes INT 1 [facility] 0.05 % 4-14 IN O[facility] BID [facility] 00:00: [place] drops 00 [facility] RESTASIS 2020-0 Yes INT 1 [facility] 0.05 % 4-14 IN O[facility] BID [facility] 00:00: [place] drops 00 [facility] RESTASIS 2020-0 Yes INT 1 [facility] 0.05 % 4-14 IN O[facility] BID [facility] 00:00: [place] drops 00 [facility] RESTASIS 2020-0 Yes INT 1 [facility] 0.05 % 4-14 IN O[facility] BID [facility] 00:00: [place] drops 00 [facility] RESTASIS 2020-0 Yes INT 1 [facility] 0.05 % 4-14 IN [facility] BID [facility] 00:00: [place] drops 00 [facility] RESTASIS 2020-0 Yes INT 1 [facility] 0.05 % 4-14 IN O[facility] BID [facility] 00:00: [place] drops 00 [facility] RESTASIS 2020-0 Yes INT 1 [facility] 0.05 % 4-14 IN O[facility] BID [facility] 00:00: [place] drops 00 [facility] RESTASIS 2020-0 Yes INT 1 [facility]TT [facility] 0.05 % 4-14 IN O[facility] BID [facility] 00:00: [place] drops 00 [facility] RESTASIS 2020-0 Yes INT 1 [facility] 0.05 % 4-14 IN O[facility] BID [facility] 00:00: [place] drops 00 [facility] RESTASIS 2020-0 Yes INT 1 [facility] 0.05 % 4-14 IN O[facility] BID [facility] 00:00: [place] drops 00 [facility] RESTASIS 2020-0 Yes INT 1 [facility] 0.05 % 4-14 IN O[facility] BID [facility] 00:00: [place] drops 00 [facility] RESTASIS 2020-0 Yes INT 1 [facility] 0.05 % 4-14 IN O[facility] BID [facility] 00:00: [place] drops 00 [facility] RESTASIS 2020-0 Yes INT 1 [facility] 0.05 % 4-14 IN O[facility] BID [facility] 00:00: [place] drops 00 [facility] RESTASIS 2020-0 Yes INT 1 [facility] 0.05 % 4-14 IN O[facility] BID [facility] 00:00: [place] drops 00 [facility] RESTASIS 2020-0 Yes INT 1 [facility] 0.05 % 4-14 IN O[facility] BID [facility] 00:00: [place] drops 00 [facility] RESTASIS 2020-0 Yes INT 1 [facility] 0.05 % 4-14 IN O[facility] BID [facility] 00:00: [place] drops 00 [facility] RESTASIS 2020-0 Yes INT 1 [facility] 0.05 % 4-14 IN O[facility] BID [facility] 00:00: [place] drops 00 [facility] RESTASIS 2020-0 Yes INT 1 [facility]TT [facility] 0.05 % 4-14 IN O[facility] BID [facility] 00:00: [place] drops 00 [facility] RESTASIS 2020-0 Yes INT 1 [facility] 0.05 % 4-14 IN O[facility] BID [facility] 00:00: [place] drops 00 [facility] RESTASIS 2020-0 Yes INT 1 [facility] 0.05 % 4-14 IN O[facility] BID [facility] 00:00: [place] drops 00 [facility] RESTASIS 2020-0 Yes INT 1 [facility]TT [facility] 0.05 % 4-14 IN O[facility] BID [facility] 00:00: [place] drops 00 [facility] RESTASIS 2020-0 Yes INT 1 [facility] 0.05 % 4-14 IN O[facility] BID [facility] 00:00: [place] drops 00 [facility] RESTASIS 2020-0 Yes INT 1 [facility] 0.05 % 4-14 IN O[facility] BID [facility] 00:00: [place] drops 00 [facility] RESTASIS 2020-0 Yes INT 1 [facility] 0.05 % 4-14 IN O[facility] BID [facility] 00:00: [place] drops 00 [facility] RESTASIS 2020-0 Yes INT 1 [facility] 0.05 % 4-14 IN O[facility] BID [facility] 00:00: [place] drops 00 [facility] RESTASIS 2020-0 Yes INT 1 [facility] 0.05 % 4-14 IN O[facility] BID [facility] 00:00: [place] drops 00 [facility] RESTASIS 2020-0 Yes INT 1 [facility] 0.05 % 4-14 IN O[facility] BID [facility] 00:00: [place] drops 00 [facility] RESTASIS 2020-0 Yes INT 1 [facility] 0.05 % 4-14 IN O[facility] BID [facility] 00:00: [place] drops 00 [facility] RESTASIS 2020-0 Yes INT 1 [facility] 0.05 % 4-14 IN O[facility] BID [facility] 00:00: [place] drops 00 [facility] RESTASIS 2020-0 Yes INT 1 [facility] 0.05 % 4-14 IN O[facility] BID [facility] 00:00: [place] drops 00 [facility] RESTASIS 2020-0 Yes INT 1 [facility] 0.05 % 4-14 IN O[facility] BID [facility] 00:00: [place] drops 00 [facility] RESTASIS 2020-0 Yes INT 1 [facility] 0.05 % 4-14 IN O[facility] BID [facility] 00:00: [place] drops 00 [facility] RESTASIS 2020-0 Yes INT 1 [facility] 0.05 % 4-14 IN O[facility] BID [facility] 00:00: [place] drops 00 [facility] RESTASIS 2020-0 Yes INT 1 [facility] 0.05 % 4-14 IN O[facility] BID [facility] 00:00: [place] drops 00 [facility] RESTASIS 2020-0 Yes INT 1 [facility] 0.05 % 4-14 IN O[facility] BID [facility] 00:00: [place] drops 00 [facility] RESTASIS 2020-0 Yes INT 1 [facility] 0.05 % 4-14 IN O[facility] BID [facility] 00:00: [place] drops 00 [facility] RESTASIS 2020-0 Yes INT 1 [facility] 0.05 % 4-14 IN O[facility] BID [facility] 00:00: [place] drops 00 [facility] RESTASIS 2020-0 Yes INT 1 [facility] 0.05 % 4-14 IN OU BID [facility] 00:00: [place] drops 00 [facility] RESTASIS 2020-0 Yes INT 1 [facility] 0.05 % 4-14 IN OU BID [facility] 00:00: [place] drops 00 [facility] RESTASIS 2020-0 Yes INT 1 GTT [facility] 0.05 % 4-14 IN OU BID [facility] 00:00: [place] drops 00 [facility] RESTASIS 2020-0 Yes INT 1 G[facility] 0.05 % 4-14 IN OU BID [facility] 00:00: [place] drops 00 [facility] RESTASIS 2020-0 Yes INT 1 GTT [facility] 0.05 % 4-14 IN OU BID [facility] 00:00: [place] drops 00 [facility] RESTASIS 2020-0 Yes INT 1 [facility] 0.05 % 4-14 IN OU BID [facility] 00:00: [place] drops 00 [facility] RESTASIS 2020-0 Yes INT 1 [facility] 0.05 % 4-14 IN O[facility] BID [facility] 00:00: [place] drops 00 [facility] RESTASIS 2020-0 Yes INT 1 [facility] 0.05 % 4-14 IN O[facility] BID [facility] 00:00: [place] drops 00 [facility] RESTASIS 2020-0 Yes INT 1 [facility] 0.05 % 4-14 IN O[facility] BID [facility] 00:00: [place] drops 00 [facility] RESTASIS 2020-0 Yes INT 1 GTT [facility] 0.05 % 4-14 IN O[facility] BID [facility] 00:00: [place] drops 00 [facility] RESTASIS 2020-0 Yes INT 1 GTT [facility] 0.05 % 4-14 IN O[facility] BID [facility] 00:00: [place] drops 00 [facility] RESTASIS 2020-0 Yes INT 1 GTT [facility] 0.05 % 4-14 IN OU BID [facility] 00:00: [place] drops 00 [facility] RESTASIS 2020-0 Yes INT 1 GTT [facility] 0.05 % 4-14 IN OU BID [facility] 00:00: [place] drops 00 [facility] RESTASIS 2020-0 Yes INT 1 [facility] 0.05 % 4-14 IN OU BID [facility] 00:00: [place] drops 00 [facility] RESTASIS 2020-0 Yes INT 1 [facility] 0.05 % 4-14 IN OU BID [facility] 00:00: [place] drops 00 [facility] RESTASIS 2020-0 Yes INT 1 GTT [facility] 0.05 % 4-14 IN OU BID [facility] 00:00: [place] drops 00 [facility] RESTASIS 2020-0 Yes INT 1 [facility]TT [facility] 0.05 % 4-14 IN O[facility] BID [facility] 00:00: [place] drops 00 [facility] RESTASIS 2020-0 Yes INT 1 GTT [facility] 0.05 % 4-14 IN OU BID [facility] 00:00: [place] drops 00 [facility] RESTASIS 2020-0 Yes INT 1 GTT [facility] 0.05 % 4-14 IN OU BID [facility] 00:00: [place] drops 00 [facility] RESTASIS 2020-0 Yes INT 1 GTT [facility] 0.05 % 4-14 IN OU BID [facility] 00:00: [place] drops 00 [facility] RESTASIS 2020-0 Yes INT 1 GTT [facility] 0.05 % 4-14 IN OU BID [facility] 00:00: [place] drops 00 [facility] RESTASIS 2020-0 Yes INT 1 GTT [facility] 0.05 % 4-14 IN OU BID [facility] ophthal[facility] 00:00: [place] drops 00 [facility] RESTASIS 2020-0 Yes INT 1 GTT [facility] 0.05 % 4-14 IN OU BID [facility] ophthal[facility] 00:00: [place] drops 00 [facility] RESTASIS 2020-0 Yes INT 1 GTT [facility] 0.05 % 4-14 IN OU BID [facility] ophthal[facility] 00:00: [place] drops 00 [facility] RESTASIS 2020-0 Yes INT 1 GTT [facility] 0.05 % 4-14 IN OU BID [facility] ophthal[facility] 00:00: [place] drops 00 [facility] RESTASIS 2020-0 Yes INT 1 GTT [facility] 0.05 % 4-14 IN OU BID [facility] ophthal[facility] 00:00: [place] drops 00 [facility] RESTASIS 2020-0 Yes INT 1 GTT [facility] 0.05 % 4-14 IN OU BID [facility] ophthal[facility] 00:00: [place] drops 00 [facility] RESTASIS 2020-0 Yes INT 1 GTT [facility] 0.05 % 4-14 IN OU BID [facility] 00:00: [place] drops 00 [facility] RESTASIS 2020-0 Yes INT 1 GTT [facility] 0.05 % 4-14 IN OU BID [facility] ophthal[facility] 00:00: [place] drops 00 [facility] RESTASIS 2020-0 Yes INT 1 GTT [facility] 0.05 % 4-14 IN OU BID [facility] ophthal[facility] 00:00: [place] drops 00 [facility] lisinopril 2020-0 2021- No TK 1 T PO U nivers 40 mg 4-14 16 QD ity of tablet 00:00: 00:00 [place] 00 :00 [facility] pantoprazol 2020-0 Yes TK 1 T PO U nivers e 40 mg EC 4-09 D ity of tablet 00:00: [place] 00 [facility] pantoprazol 2020-0 Yes TK 1 T PO U nivers e 40 mg EC 4-09 D ity of tablet 00:00: [place] 00 [facility] pantoprazol 2020-0 Yes TK 1 T PO U nivers e 40 mg EC 4-09 D ity of tablet 00:00: [place] 00 [facility] pantoprazol 2020-0 Yes TK 1 T PO U nivers e 40 mg EC 4-09 D ity of tablet 00:00: [place] 00 [facility] pantoprazol 2020-0 Yes TK 1 T PO U nivers e 40 mg EC 4-09 D ity of tablet 00:00: [place] 00 [facility] pantoprazol 2020-0 Yes TK 1 T PO U nivers e 40 mg EC 4-09 D ity of tablet 00:00: [place] 00 [facility] pantoprazol 2020-0 Yes TK 1 T PO U nivers e 40 mg EC 4-09 D ity of tablet 00:00: [address] Branch pantoprazol 2020-0 Yes TK 1 T PO U nivers e 40 mg EC 4-09 D ity of tablet 00:00: [place] 00 [facility] pantoprazol 2020-0 Yes TK 1 T PO U nivers e 40 mg EC 4-09 D ity of tablet 00:00: [place] [address] [facility] pantoprazol 2020-0 Yes TK 1 T PO U nivers e 40 mg EC 4-09 D ity of tablet 00:00: [place] [address] [facility] pantoprazol 2020-0 Yes TK 1 T PO U nivers e 40 mg EC 4-09 D ity of tablet 00:00: [address] Branch pantoprazol 2020-0 Yes TK 1 T PO U nivers e 40 mg EC 4-09 D ity of tablet 00:00: [place] [address] [facility] pantoprazol 2020-0 Yes TK 1 T PO U nivers e 40 mg EC 4-09 D ity of tablet 00:00: [place] [address] [facility] pantoprazol 2020-0 Yes TK 1 T PO U nivers e 40 mg EC 4-09 D ity of tablet 00:00: [place] [address] [facility] pantoprazol 2020-0 Yes TK 1 T PO U nivers e 40 mg EC 4-09 D ity of tablet 00:00: [place] [address] [facility] pantoprazol 2020-0 Yes TK 1 T PO U nivers e 40 mg EC 4-09 D ity of tablet 00:00: [address] Branch pantoprazol 2020-0 Yes TK 1 T PO U nivers e 40 mg EC 4-09 D ity of tablet 00:00: [place] 00 [facility] pantoprazol 2020-0 Yes TK 1 T PO U nivers e 40 mg EC 4-09 D ity of tablet 00:00: [place] 00 [facility] pantoprazol 2020-0 Yes TK 1 T PO U nivers e 40 mg EC 4-09 D ity of tablet 00:00: [place] 00 [facility] pantoprazol 2020-0 Yes TK 1 T PO U nivers e 40 mg EC 4-09 D ity of tablet 00:00: [place] 00 [facility] pantoprazol 2020-0 Yes TK 1 T PO U nivers e 40 mg EC 4-09 D ity of tablet 00:00: [place] [address] [facility] pantoprazol 2020-0 Yes TK 1 T PO U nivers e 40 mg EC 4-09 D ity of tablet 00:00: [place] [address] [facility] pantoprazol 2020-0 Yes TK 1 T PO U nivers e 40 mg EC 4-09 D ity of tablet 00:00: [place] [address] [facility] pantoprazol 2020-0 Yes TK 1 T PO U nivers e 40 mg EC 4-09 D ity of tablet 00:00: [place] [address] [facility] pantoprazol 2020-0 Yes TK 1 T PO U nivers e 40 mg EC 4-09 D ity of tablet 00:00: [place] [address] [facility] pantoprazol 2020-0 Yes TK 1 T PO U nivers e 40 mg EC 4-09 D ity of tablet 00:00: [place] [address] [facility] pantoprazol 2020-0 Yes TK 1 T PO U nivers e 40 mg EC 4-09 D ity of tablet 00:00: [place] [address] [facility] pantoprazol 2020-0 Yes TK 1 T PO U nivers e 40 mg EC 4-09 D ity of tablet 00:00: [place] [address] [facility] pantoprazol 2020-0 Yes TK 1 T PO U nivers e 40 mg EC 4-09 D ity of tablet 00:00: [place] [address] [facility] pantoprazol 2020-0 Yes TK 1 T PO U nivers e 40 mg EC 4-09 D ity of tablet 00:00: [place] [address] [facility] pantoprazol 2020-0 Yes TK 1 T PO U nivers e 40 mg EC 4-09 D ity of tablet 00:00: [place] 00 [facility] pantoprazol 2020-0 Yes TK 1 T PO U nivers e 40 mg EC 4-09 D ity of tablet 00:00: [place] 00 [facility] pantoprazol 2020-0 Yes TK 1 T PO U nivers e 40 mg EC 4-09 D ity of tablet 00:00: [place] 00 [facility] pantoprazol 2020-0 Yes TK 1 T PO U nivers e 40 mg EC 4-09 D ity of tablet 00:00: [place] 00 [facility] pantoprazol 2020-0 Yes TK 1 T PO U nivers e 40 mg EC 4-09 D ity of tablet 00:00: [place] 00 [facility] pantoprazol 2020-0 Yes TK 1 T PO U nivers e 40 mg EC 4-09 D ity of tablet 00:00: [place] [address] [facility] pantoprazol 2020-0 Yes TK 1 T PO U nivers e 40 mg EC 4-09 D ity of tablet 00:00: [place] [address] [facility] pantoprazol 2020-0 Yes TK 1 T PO U nivers e 40 mg EC 4-09 D ity of tablet 00:00: [place] [address] [facility] pantoprazol 2020-0 Yes TK 1 T PO U nivers e 40 mg EC 4-09 D ity of tablet 00:00: [place] [address] [facility] pantoprazol 2020-0 Yes TK 1 T PO U nivers e 40 mg EC 4-09 D ity of tablet 00:00: [place] [address] [facility] pantoprazol 2020-0 Yes TK 1 T PO U nivers e 40 mg EC 4-09 D ity of tablet 00:00: [place] [address] [facility] pantoprazol 2020-0 Yes TK 1 T PO U nivers e 40 mg EC 4-09 D ity of tablet 00:00: [place] [address] [facility] pantoprazol 2020-0 Yes TK 1 T PO U nivers e 40 mg EC 4-09 D ity of tablet 00:00: [place] [address] [facility] pantoprazol 2020-0 Yes TK 1 T PO U nivers e 40 mg EC 4-09 D ity of tablet 00:00: [place] [address] [facility] pantoprazol 2020-0 Yes TK 1 T PO U nivers e 40 mg EC 4-09 D ity of tablet 00:00: [place] [address] [facility] pantoprazol 2020-0 Yes TK 1 T PO U nivers e 40 mg EC 4-09 D ity of tablet 00:00: [place] 00 [facility] pantoprazol 2020-0 Yes TK 1 T PO U nivers e 40 mg EC 4-09 D ity of tablet 00:00: [place] 00 [facility] pantoprazol 2020-0 Yes TK 1 T PO U nivers e 40 mg EC 4-09 D ity of tablet 00:00: [place] 00 [facility] pantoprazol 2020-0 Yes TK 1 T PO U nivers e 40 mg EC 4-09 D ity of tablet 00:00: [place] 00 [facility] pantoprazol 2020-0 Yes TK 1 T PO U nivers e 40 mg EC 4-09 D ity of tablet 00:00: [place] [address] [facility] pantoprazol 2020-0 Yes TK 1 T PO U nivers e 40 mg EC 4-09 D ity of tablet 00:00: [place] 00 [facility] pantoprazol 2020-0 Yes TK 1 T PO U nivers e 40 mg EC 4-09 D ity of tablet 00:00: [place] [address] [facility] pantoprazol 2020-0 Yes TK 1 T PO U nivers e 40 mg EC 4-09 D ity of tablet 00:00: [place] [address] [facility] pantoprazol 2020-0 Yes TK 1 T PO U nivers e 40 mg EC 4-09 D ity of tablet 00:00: [place] 00 [facility] pantoprazol 2020-0 Yes TK 1 T PO U nivers e 40 mg EC 4-09 D ity of tablet 00:00: [place] [address] [facility] pantoprazol 2020-0 Yes TK 1 T PO U nivers e 40 mg EC 4-09 D ity of tablet 00:00: [place] 00 [facility] pantoprazol 2020-0 Yes TK 1 T PO U nivers e 40 mg EC 4-09 D ity of tablet 00:00: [place] [address] [facility] pantoprazol 2020-0 Yes TK 1 T PO U nivers e 40 mg EC 4-09 D ity of tablet 00:00: [place] [address] [facility] pantoprazol 2020-0 Yes TK 1 T PO U nivers e 40 mg EC 4-09 D ity of tablet 00:00: [place] [address] [facility] pantoprazol 2020-0 Yes TK 1 T PO U nivers e 40 mg EC 4-09 D ity of tablet 00:00: [place] [address] [facility] pantoprazol 2020-0 Yes TK 1 T PO U nivers e 40 mg EC 4-09 D ity of tablet 00:00: [place] 00 [facility] pantoprazol 2020-0 Yes TK 1 T PO U nivers e 40 mg EC 4-09 D ity of tablet 00:00: [place] 00 [facility] pantoprazol 2020-0 Yes TK 1 T PO U nivers e 40 mg EC 4-09 D ity of tablet 00:00: [place] [address] [facility] pantoprazol 2020-0 Yes TK 1 T PO U nivers e 40 mg EC 4-09 D ity of tablet 00:00: [place] 00 [facility] pantoprazol 2020-0 Yes TK 1 T PO U nivers e 40 mg EC 4-09 D ity of tablet 00:00: [address] Branch pantoprazol 2020-0 Yes TK 1 T PO U nivers e 40 mg EC 4-09 D ity of tablet 00:00: [address] pantoprazol 2020-0 Yes TK 1 T PO U nivers e 40 mg EC 4-09 D ity of tablet 00:00: [address] Branch pantoprazol 2020-0 Yes TK 1 T PO U nivers e 40 mg EC 4-09 D ity of tablet 00:00: [address] pantoprazol 2020-0 Yes TK 1 T PO U nivers e 40 mg EC 4-09 D ity of tablet 00:00: [address] pantoprazol 2020-0 Yes TK 1 T PO U nivers e 40 mg EC 4-09 D ity of tablet 00:00: [address] Branch pantoprazol 2020-0 Yes TK 1 T PO U nivers e 40 mg EC 4-09 D ity of tablet 00:00: [address] Branch pantoprazol 2020-0 Yes TK 1 T PO U nivers e 40 mg EC 4-09 D ity of tablet 00:00: [address] Branch pantoprazol 2020-0 Yes TK 1 T PO U nivers e 40 mg EC 4-09 D ity of tablet 00:00: [address] Branch pantoprazol 2020-0 Yes TK 1 T PO U nivers e 40 mg EC 4-09 D ity of tablet 00:00: [address] Branch pantoprazol 2020-0 Yes TK 1 T PO U nivers e 40 mg EC 4-09 D ity of tablet 00:00: [place] 00 [facility] pantoprazol 2020-0 Yes TK 1 T PO U nivers e 40 mg EC 4-09 D ity of tablet 00:00: [place] 00 [facility] pantoprazol 2020-0 Yes TK 1 T PO U nivers e 40 mg EC 4-09 D ity of tablet 00:00: [place] 00 [facility] pantoprazol 2020-0 Yes TK 1 T PO U nivers e 40 mg EC 4-09 D ity of tablet 00:00: [place] 00 [facility] pantoprazol 2020-0 Yes TK 1 T PO U nivers e 40 mg EC 4-09 D ity of tablet 00:00: [place] 00 [facility] pantoprazol 2020-0 Yes TK 1 T PO U nivers e 40 mg EC 4-09 D ity of tablet 00:00: [place] 00 [facility] pantoprazol 2020-0 Yes TK 1 T PO U nivers e 40 mg EC 4-09 D ity of tablet 00:00: [place] [address] [facility] pantoprazol 2020-0 Yes TK 1 T PO U nivers e 40 mg EC 4-09 D ity of tablet 00:00: [place] [address] [facility] pantoprazol 2020-0 Yes TK 1 T PO U nivers e 40 mg EC 4-09 D ity of tablet 00:00: [place] [address] [facility] pantoprazol 2020-0 Yes TK 1 T PO U nivers e 40 mg EC 4-09 D ity of tablet 00:00: [place] 00 [facility] pantoprazol 2020-0 Yes TK 1 T PO U nivers e 40 mg EC 4-09 D ity of tablet 00:00: [place] [address] [facility] pantoprazol 2020-0 Yes TK 1 T PO U nivers e 40 mg EC 4-09 D ity of tablet 00:00: [place] 00 [facility] pantoprazol 2020-0 Yes TK 1 T PO U nivers e 40 mg EC 4-09 D ity of tablet 00:00: [place] [address] [facility] pantoprazol 2020-0 Yes TK 1 T PO U nivers e 40 mg EC 4-09 D ity of tablet 00:00: [place] [address] [facility] pantoprazol 2020-0 Yes TK 1 T PO U nivers e 40 mg EC 4-09 D ity of tablet 00:00: [place] [address] [facility] pantoprazol 2020-0 Yes TK 1 T PO U nivers e 40 mg EC 4-09 D ity of tablet 00:00: [place] 00 [facility] pantoprazol 2020-0 Yes TK 1 T PO U nivers e 40 mg EC 4-09 D ity of tablet 00:00: [place] 00 [facility] pantoprazol 2020-0 Yes TK 1 T PO U nivers e 40 mg EC 4-09 D ity of tablet 00:00: [place] 00 [facility] pantoprazol 2020-0 Yes TK 1 T PO U nivers e 40 mg EC 4-09 D ity of tablet 00:00: [place] 00 [facility] pantoprazol 2020-0 Yes TK 1 T PO U nivers e 40 mg EC 4-09 D ity of tablet 00:00: [place] 00 [facility] pantoprazol 2020-0 Yes TK 1 T PO U nivers e 40 mg EC 4-09 D ity of tablet 00:00: [place] [address] [facility] pantoprazol 2020-0 Yes TK 1 T PO U nivers e 40 mg EC 4-09 D ity of tablet 00:00: [place] [address] [facility] pantoprazol 2020-0 Yes TK 1 T PO U nivers e 40 mg EC 4-09 D ity of tablet 00:00: [place] 00 [facility] pantoprazol 2020-0 Yes TK 1 T PO U nivers e 40 mg EC 4-09 D ity of tablet 00:00: [place] [address] [facility] pantoprazol 2020-0 Yes TK 1 T PO U nivers e 40 mg EC 4-09 D ity of tablet 00:00: [place] [address] [facility] pantoprazol 2020-0 Yes TK 1 T PO U nivers e 40 mg EC 4-09 D ity of tablet 00:00: [place] [address] [facility] pantoprazol 2020-0 Yes TK 1 T PO U nivers e 40 mg EC 4-09 D ity of tablet 00:00: [place] [address] [facility] pantoprazol 2020-0 Yes TK 1 T PO U nivers e 40 mg EC 4-09 D ity of tablet 00:00: [place] [address] [facility] pantoprazol 2020-0 Yes TK 1 T PO U nivers e 40 mg EC 4-09 D ity of tablet 00:00: [place] [address] [facility] pantoprazol 2020-0 Yes TK 1 T PO U nivers e 40 mg EC 4-09 D ity of tablet 00:00: [place] [address] [facility] pantoprazol 2020-0 Yes TK 1 T PO U nivers e 40 mg EC 4-09 D ity of tablet 00:00: [place] 00 [facility] pantoprazol 2020-0 Yes TK 1 T PO U nivers e 40 mg EC 4-09 D ity of tablet 00:00: [place] 00 [facility] pantoprazol 2020-0 Yes TK 1 T PO U nivers e 40 mg EC 4-09 D ity of tablet 00:00: [place] 00 [facility] pantoprazol 2020-0 Yes TK 1 T PO U nivers e 40 mg EC 4-09 D ity of tablet 00:00: [place] 00 [facility] pantoprazol 2020-0 Yes TK 1 T PO U nivers e 40 mg EC 4-09 D ity of tablet 00:00: [place] [address] [facility] pantoprazol 2020-0 Yes TK 1 T PO U nivers e 40 mg EC 4-09 D ity of tablet 00:00: [place] [address] [facility] pantoprazol 2020-0 Yes TK 1 T PO U nivers e 40 mg EC 4-09 D ity of tablet 00:00: [place] 00 [facility] pantoprazol 2020-0 Yes TK 1 T PO U nivers e 40 mg EC 4-09 D ity of tablet 00:00: [place] [address] [facility] pantoprazol 2020-0 Yes TK 1 T PO U nivers e 40 mg EC 4-09 D ity of tablet 00:00: [place] 00 [facility] pantoprazol 2020-0 Yes TK 1 T PO U nivers e 40 mg EC 4-09 D ity of tablet 00:00: [place] [address] [facility] pantoprazol 2020-0 Yes TK 1 T PO U nivers e 40 mg EC 4-09 D ity of tablet 00:00: [address] Branch pantoprazol 2020-0 Yes TK 1 T PO U nivers e 40 mg EC 4-09 D ity of tablet 00:00: [place] [address] [facility] pantoprazol 2020-0 Yes TK 1 T PO U nivers e 40 mg EC 4-09 D ity of tablet 00:00: [place] [address] [facility] pantoprazol 2020-0 2023- No TK 1 T PO Univers e 40 mg EC 12-30 D ity of tablet 00:00: 00:00 [place] 00 :00 [facility] pantoprazol 2020-0 2023- No TK 1 T PO Univers e 40 mg EC 4-09 05-17 D ity of tablet 00:00: 00:00 [place] 00 :00 [facility] Blood-Gluco 2019-0 Yes [id number] Use as Univers se Meter 7-12 directed ity of (TRUE 00:00: daily DX: [place] METRIX 00 E11.9 Medical GLUCOSE Branch METER) Misc Blood-Gluco 2019-0 Yes [id number] Use as Univers se Meter 7-12 directed ity of (TRUE 00:00: daily DX: [place] METRIX 00 E11.9 Medical GLUCOSE Branch METER) Misc Blood-Gluco 2019-0 Yes [id number] Use as Univers se Meter 7-12 directed ity of (TRUE 00:00: daily DX: [place] METRIX 00 E11.9 Medical GLUCOSE Branch METER) Misc Blood-Gluco 2019-0 Yes [id number] Use as Univers se Meter 7-12 directed ity of (TRUE 00:00: daily DX: [place] METRIX 00 E11.9 Medical GLUCOSE Branch METER) Misc Blood-Gluco 2019-0 Yes [id number] Use as Univers se Meter 7-12 directed ity of (TRUE 00:00: daily DX: [place] METRIX 00 E11.9 Medical GLUCOSE Branch METER) Misc Blood-Gluco 2019-0 Yes [id number] Use as Univers se Meter 7-12 directed ity of (TRUE 00:00: daily DX: [place] METRIX 00 E11.9 Medical GLUCOSE Branch METER) Misc Blood-Gluco 2019-0 Yes [id number] Use as Univers se Meter 7-12 directed ity of (TRUE 00:00: daily DX: [place] [facility] 00 E11.9 [facility] GLU[facility]SE [facility] METER) Misc Blood-Gluco 2019-0 Yes [id number] Use as [facility] se Meter 7-12 directed ity of (TRUE 00:00: daily DX: [place] [facility] 00 E11.9 [facility] GLUCOSE [facility] METER) Misc Blood-Gluco 2019-0 Yes [id number] Use as [facility] se Meter 7-12 directed ity of (TRUE 00:00: daily DX: [place] [facility] 00 E11.9 [facility] GLUCOSE [facility] METER) Misc Blood-Gluco 2019-0 Yes [id number] Use as [facility] se Meter 7-12 directed ity of (TRUE 00:00: daily DX: [place] [facility] 00 E11.9 [facility] GLUCOSE [facility] METER) Misc Blood-Gluco 2019-0 Yes [id number] Use as [facility] se Meter 7-12 directed ity of (TRUE 00:00: daily DX: [place] [facility] 00 E11.9 [facility] GLUCOSE [facility] METER) [facility] Yes [id number] Use as [facility] se Meter 7-12 directed ity of (TRUE 00:00: daily DX: [place] [facility] 00 E11.9 [facility] GLUCOSE [facility] METER) [facility]0 Yes [id number] Use as [facility] se Meter 7-12 directed ity of (TRUE 00:00: daily DX: [place] [facility] 00 E11.9 Medical GLUCOSE [facility] METER) [facility]-0 Yes [id number] Use as [facility] se Meter 7-12 directed ity of (TRUE 00:00: daily DX: [place] [facility] 00 E11.9 [facility] GLUCOSE [facility] METER) [facility]-0 Yes [id number] Use as [facility] se Meter 7-12 directed ity of (TRUE 00:00: daily DX: [place] [facility] 00 E11.9 Medical GLUCOSE Branch METER) [facility] [place] [facility] Blood-Gluco 2019-0 Yes [id number] Use as [facility] se Meter 7-12 directed ity of (TRUE 00:00: daily DX: [place] [facility] 00 E11.9 Medical GLUCOSE Branch METER) [facility] [place] [facility] Blood-Gluco 2019-0 Yes [id number] Use as [facility] se Meter 7-12 directed ity of (TRUE 00:00: daily DX: [place] [facility] 00 E11.9 Medical GLUCOSE Branch METER) [facility] [place] [facility] Blood-Gluco 2019-0 Yes [id number] Use as [facility] se Meter 7-12 directed ity of (TRUE 00:00: daily DX: [place] [facility] 00 E11.9 Medical GLUCOSE Branch METER) [facility]-0 Yes [id number] Use as [facility] se Meter 7-12 directed ity of (TRUE 00:00: daily DX: [place] [facility] 00 E11.9 Medical GLUCOSE Branch METER) [facility]-0 Yes [id number] Use as [facility] se Meter 7-12 directed ity of (TRUE 00:00: daily DX: [place] [facility] 00 E11.9 Medical GLUCOSE [facility] METER) [facility] 2019-0 Yes [id number] Use as [facility] se Meter 7-12 directed ity of (TRUE 00:00: daily DX: [place] [facility] 00 E11.9 Medical GLUCOSE Branch METER) Misc Blood-Gluco 2019-0 Yes [id number] Use as [facility] se Meter 7-12 directed ity of (TRUE 00:00: daily DX: [place] [facility] 00 E11.9 Medical GLUCOSE [facility] METER) Misc Blood-Gluco 2019-0 Yes [id number] Use as [facility] se Meter 7-12 directed ity of (TRUE 00:00: daily DX: [place] [facility] 00 E11.9 Medical GLUCOSE [facility] METER) Misc Blood-Gluco 2019-0 Yes [id number] Use as [facility] se Meter 7-12 directed ity of (TRUE 00:00: daily DX: [place] [facility] 00 E11.9 Medical GLUCOSE [facility] METER) Misc Blood-Gluco 2019-0 Yes [id number] Use as [facility] se Meter 7-12 directed ity of (TRUE 00:00: daily DX: [place] [facility] 00 E11.9 Medical GLUCOSE [facility] METER) Misc Blood-Gluco 2019-0 Yes [id number] Use as [facility] se Meter 7-12 directed ity of (TRUE 00:00: daily DX: [place] [facility] 00 E11.9 Medical GLUCOSE [facility] METER) Misc Blood-Gluco 2019-0 Yes [id number] Use as [facility] se Meter 7-12 directed ity of (TRUE 00:00: daily DX: [place] [facility] 00 E11.9 Medical GLUCOSE Branch METER) Misc Blood-Gluco 2019-0 Yes [id number] Use as [facility] se Meter 7-12 directed ity of (TRUE 00:00: daily DX: [place] [facility] 00 E11.9 Medical GLUCOSE [facility] METER) Misc Blood-Gluco 2019-0 Yes [id number] Use as [facility] se Meter 7-12 directed ity of (TRUE 00:00: daily DX: [place] [facility] 00 E11.9 Medical GLUCOSE Branch METER) Misc Blood-Gluco 2019-0 Yes [id number] Use as [facility] se Meter 7-12 directed ity of (TRUE 00:00: daily DX: [place] [facility] 00 E11.9 Medical GLUCOSE Branch METER) Misc Blood-Gluco 2019-0 Yes [id number] Use as [facility] se Meter 7-12 directed ity of (TRUE 00:00: daily DX: [place] [facility] 00 E11.9 Medical GLUCOSE [facility] METER) Misc Blood-Gluco 2019-0 Yes [id number] Use as [facility] se Meter 7-12 directed ity of (TRUE 00:00: daily DX: [place] [facility] 00 E11.9 Medical GLUCOSE Branch METER) Misc Blood-Gluco 2019-0 Yes [id number] Use as [facility] se Meter 7-12 directed ity of (TRUE 00:00: daily DX: [place] [facility] 00 E11.9 Medical GLUCOSE Branch METER) Misc Blood-Gluco 2019-0 Yes [id number] Use as [facility] se Meter 7-12 directed ity of (TRUE 00:00: daily DX: [place] [facility] 00 E11.9 Medical GLUCOSE [facility] METER) [facility]-0 Yes [id number] Use as [facility] se Meter 7-12 directed ity of (TRUE 00:00: daily DX: [place] [facility] 00 E11.9 Medical GLUCOSE Branch METER) [facility] 2019-0 Yes [id number] Use as [facility] se Meter 7-12 directed ity of (TRUE 00:00: daily DX: [place] [facility] 00 E11.9 Medical GLUCOSE Branch METER) [facility] 2019-0 Yes [id number] Use as [facility] se Meter 7-12 directed ity of (TRUE 00:00: daily DX: [place] [facility] 00 E11.9 Medical GLUCOSE Branch METER) [facility] 2019-0 Yes [id number] Use as [facility] se Meter 7-12 directed ity of (TRUE 00:00: daily DX: [place] [facility] 00 E11.9 Medical GLUCOSE Branch METER) [facility] 2019-0 Yes [id number] Use as [facility] se Meter 7-12 directed ity of (TRUE 00:00: daily DX: [place] [facility] 00 E11.9 Medical GLUCOSE Branch METER) Misc Blood-Gluco 2019-0 Yes [id number] Use as [facility] se Meter 7-12 directed ity of (TRUE 00:00: daily DX: [place] [facility] 00 E11.9 Medical GLUCOSE Branch METER) Misc Blood-Gluco 2019-0 Yes [id number] Use as [facility] se Meter 7-12 directed ity of (TRUE 00:00: daily DX: [place] [facility] 00 E11.9 Medical GLUCOSE Branch METER) Misc Blood-Gluco 2019-0 Yes [id number] Use as [facility] se Meter 7-12 directed ity of (TRUE 00:00: daily DX: [place] [facility] 00 E11.9 Medical GLUCOSE Branch METER) Misc Blood-Gluco 2019-0 Yes [id number] Use as [facility] se Meter 7-12 directed ity of (TRUE 00:00: daily DX: [place] [facility] 00 E11.9 Medical GLUCOSE Branch METER) Misc Blood-Gluco 2019-0 Yes [id number] Use as [facility] se Meter 7-12 directed ity of (TRUE 00:00: daily DX: [place] [facility] 00 E11.9 Medical GLUCOSE Branch METER) Misc Blood-Gluco 2019-0 Yes [id number] Use as [facility] se Meter 7-12 directed ity of (TRUE 00:00: daily DX: [place] [facility] 00 E11.9 Medical GLUCOSE Branch METER) Misc Blood-Gluco 2019-0 Yes [id number] Use as [facility] se Meter 7-12 directed ity of (TRUE 00:00: daily DX: [place] [facility] 00 E11.9 Medical GLUCOSE Branch METER) Misc Blood-Gluco 2019-0 Yes [id number] Use as [facility] se Meter 7-12 directed ity of (TRUE 00:00: daily DX: [place] [facility] 00 E11.9 Medical GLUCOSE Branch METER) Misc Blood-Gluco 2019-0 Yes [id number] Use as [facility] se Meter 7-12 directed ity of (TRUE 00:00: daily DX: [place] [facility] 00 E11.9 Medical GLUCOSE Branch METER) Misc Blood-Gluco 2019-0 Yes [id number] Use as [facility] se Meter 7-12 directed ity of (TRUE 00:00: daily DX: [place] [facility] 00 E11.9 Medical GLUCOSE Branch METER) Misc Blood-Gluco 2019-0 Yes [id number] Use as [facility] se Meter 7-12 directed ity of (TRUE 00:00: daily DX: [place] [facility] 00 E11.9 Medical GLUCOSE Branch METER) Misc Blood-Gluco 2019-0 Yes [id number] Use as [facility] se Meter 7-12 directed ity of (TRUE 00:00: daily DX: [place] [facility] 00 E11.9 Medical GLUCOSE Branch METER) Misc Blood-Gluco 2019-0 Yes [id number] Use as [facility] se Meter 7-12 directed ity of (TRUE 00:00: daily DX: [place] [facility] 00 E11.9 Medical GLUCOSE Branch METER) Misc Blood-Gluco 2019-0 Yes [id number] Use as [facility] se Meter 7-12 directed ity of (TRUE 00:00: daily DX: [place] [facility] 00 E11.9 Medical GLUCOSE Branch METER) Misc Blood-Gluco 2019-0 Yes [id number] Use as [facility] se Meter 7-12 directed ity of (TRUE 00:00: daily DX: [place] [facility] 00 E11.9 Medical GLUCOSE Branch METER) Misc Blood-Gluco 2019-0 Yes [id number] Use as [facility] se Meter 7-12 directed ity of (TRUE 00:00: daily DX: [place] [facility] 00 E11.9 Medical GLUCOSE Branch METER) Misc Blood-Gluco 2019-0 Yes [id number] Use as [facility] se Meter 7-12 directed ity of (TRUE 00:00: daily DX: [place] [facility] 00 E11.9 Medical GLUCOSE Branch METER) Misc Blood-Gluco 2019-0 Yes [id number] Use as [facility] se Meter 7-12 directed ity of (TRUE 00:00: daily DX: [place] [facility] 00 E11.9 Medical GLUCOSE Branch METER) Misc Blood-Gluco 2019-0 Yes [id number] Use as [facility] se Meter 7-12 directed ity of (TRUE 00:00: daily DX: [place] [facility] 00 E11.9 Medical GLUCOSE Branch METER) Misc Blood-Gluco 2019-0 Yes [id number] Use as [facility] se Meter 7-12 directed ity of (TRUE 00:00: daily DX: [place] [facility] 00 E11.9 Medical GLUCOSE Branch METER) Misc Blood-Gluco 2019-0 Yes [id number] Use as [facility] se Meter 7-12 directed ity of (TRUE 00:00: daily DX: [place] [facility] 00 E11.9 Medical GLUCOSE Branch METER) Misc Blood-Gluco 2019-0 Yes [id number] Use as [facility] se Meter 7-12 directed ity of (TRUE 00:00: daily DX: [place] [facility] 00 E11.9 Medical GLUCOSE Branch METER) Misc Blood-Gluco 2019-0 Yes [id number] Use as [facility] se Meter 7-12 directed ity of (TRUE 00:00: daily DX: [place] [facility] 00 E11.9 Medical GLUCOSE Branch METER) Misc Blood-Gluco 2019-0 Yes [id number] Use as [facility] se Meter 7-12 directed ity of (TRUE 00:00: daily DX: [place] [facility] 00 E11.9 Medical GLUCOSE Branch METER) Misc Blood-Gluco 2019-0 Yes [id number] Use as [facility] se Meter 7-12 directed ity of (TRUE 00:00: daily DX: [place] [facility] 00 E11.9 Medical GLUCOSE Branch METER) Misc Blood-Gluco 2019-0 Yes [id number] Use as [facility] se Meter 7-12 directed ity of (TRUE 00:00: daily DX: [place] [facility] 00 E11.9 Medical GLUCOSE Branch METER) Misc Blood-Gluco 2019-0 Yes [id number] Use as [facility] se Meter 7-12 directed ity of (TRUE 00:00: daily DX: [place] [facility] 00 E11.9 Medical GLUCOSE Branch METER) Misc Blood-Gluco 2019-0 Yes [id number] Use as [facility] se Meter 7-12 directed ity of (TRUE 00:00: daily DX: [place] [facility] 00 E11.9 Medical GLUCOSE Branch METER) Misc Blood-Gluco 2019-0 Yes [id number] Use as [facility] se Meter 7-12 directed ity of (TRUE 00:00: daily DX: [place] [facility] 00 E11.9 Medical GLUCOSE Branch METER) Misc Blood-Gluco 2019-0 Yes [id number] Use as [facility] se Meter 7-12 directed ity of (TRUE 00:00: daily DX: [place] [facility] 00 E11.9 Medical GLUCOSE Branch METER) Misc Blood-Gluco 2019-0 Yes [id number] Use as [facility] se Meter 7-12 directed ity of (TRUE 00:00: daily DX: [place] [facility] 00 E11.9 Medical GLUCOSE Branch METER) Misc Blood-Gluco 2019-0 Yes [id number] Use as [facility] se Meter 7-12 directed ity of (TRUE 00:00: daily DX: [place] [facility] 00 E11.9 Medical GLUCOSE Branch METER) Misc Blood-Gluco 2019-0 Yes [id number] Use as [facility] se Meter 7-12 directed ity of (TRUE 00:00: daily DX: [place] [facility] 00 E11.9 Medical GLUCOSE Branch METER) Misc Blood-Gluco 2019-0 Yes [id number] Use as [facility] se Meter 7-12 directed ity of (TRUE 00:00: daily DX: [place] [facility] 00 E11.9 Medical GLUCOSE Branch METER) Misc Blood-Gluco 2019-0 Yes [id number] Use as [facility] se Meter 7-12 directed ity of (TRUE 00:00: daily DX: [place] [facility] 00 E11.9 Medical GLUCOSE Branch METER) Misc Blood-Gluco 2019-0 Yes [id number] Use as [facility] se Meter 7-12 directed ity of (TRUE 00:00: daily DX: [place] [facility] 00 E11.9 Medical GLUCOSE Branch METER) Misc Blood-Gluco 2019-0 Yes [id number] Use as [facility] se Meter 7-12 directed ity of (TRUE 00:00: daily DX: [place] [facility] 00 E11.9 Medical GLUCOSE Branch METER) Misc Blood-Gluco 2019-0 Yes [id number] Use as [facility] se Meter 7-12 directed ity of (TRUE 00:00: daily DX: [place] [facility] 00 E11.9 Medical GLUCOSE Branch METER) Misc Blood-Gluco 2019-0 Yes [id number] Use as [facility] se Meter 7-12 directed ity of (TRUE 00:00: daily DX: [place] [facility] 00 E11.9 Medical GLUCOSE Branch METER) Misc Blood-Gluco 2019-0 Yes [id number] Use as [facility] se Meter 7-12 directed ity of (TRUE 00:00: daily DX: [place] [facility] 00 E11.9 Medical GLUCOSE Branch METER) Misc Blood-Gluco 2019-0 Yes [id number] Use as [facility] se Meter 7-12 directed ity of (TRUE 00:00: daily DX: [place] [facility] 00 E11.9 Medical GLUCOSE Branch METER) Misc Blood-Gluco 2019-0 Yes [id number] Use as [facility] se Meter 7-12 directed ity of (TRUE 00:00: daily DX: [place] [facility] 00 E11.9 Medical GLUCOSE Branch METER) Misc Blood-Gluco 2019-0 Yes [id number] Use as [facility] se Meter 7-12 directed ity of (TRUE 00:00: daily DX: [place] [facility] 00 E11.9 Medical GLUCOSE Branch METER) Misc Blood-Gluco 2019-0 Yes [id number] Use as [facility] se Meter 7-12 directed ity of (TRUE 00:00: daily DX: [place] [facility] 00 E11.9 Medical GLUCOSE Branch METER) Misc Blood-Gluco 2019-0 Yes [id number] Use as [facility] se Meter 7-12 directed ity of (TRUE 00:00: daily DX: [place] [facility] 00 E11.9 Medical GLUCOSE Branch METER) Misc Blood-Gluco 2019-0 Yes [id number] Use as [facility] se Meter 7-12 directed ity of (TRUE 00:00: daily DX: [place] [facility] 00 E11.9 Medical GLUCOSE Branch METER) Misc Blood-Gluco 2019-0 Yes [id number] Use as [facility] se Meter 7-12 directed ity of (TRUE 00:00: daily DX: [place] [facility] 00 E11.9 Medical GLUCOSE Branch METER) Misc Blood-Gluco 2019-0 Yes [id number] Use as [facility] se Meter 7-12 directed ity of (TRUE 00:00: daily DX: [place] [facility] 00 E11.9 Medical GLUCOSE Branch METER) Misc Blood-Gluco 2019-0 Yes [id number] Use as [facility] se Meter 7-12 directed ity of (TRUE 00:00: daily DX: [place] [facility] 00 E11.9 Medical GLUCOSE Branch METER) Misc Blood-Gluco 2019-0 Yes [id number] Use as [facility] se Meter 7-12 directed ity of (TRUE 00:00: daily DX: [place] [facility] 00 E11.9 Medical GLUCOSE Branch METER) Misc Blood-Gluco 2019-0 Yes [id number] Use as [facility] se Meter 7-12 directed ity of (TRUE 00:00: daily DX: [place] [facility] 00 E11.9 Medical GLUCOSE Branch METER) Misc Blood-Gluco 2019-0 Yes [id number] Use as [facility] se Meter 7-12 directed ity of (TRUE 00:00: daily DX: [place] [facility] 00 E11.9 Medical GLUCOSE Branch METER) Misc Blood-Gluco 2019-0 Yes [id number] Use as [facility] se Meter 7-12 directed ity of (TRUE 00:00: daily DX: [place] [facility] 00 E11.9 Medical GLUCOSE Branch METER) Misc Blood-Gluco 2019-0 Yes [id number] Use as [facility] se Meter 7-12 directed ity of (TRUE 00:00: daily DX: [place] [facility] 00 E11.9 Medical GLUCOSE Branch METER) Misc Blood-Gluco 2019-0 Yes [id number] Use as [facility] se Meter 7-12 directed ity of (TRUE 00:00: daily DX: [place] [facility] 00 E11.9 Medical GLUCOSE Branch METER) Misc Blood-Gluco 2019-0 Yes [id number] Use as [facility] se Meter 7-12 directed ity of (TRUE 00:00: daily DX: [place] [facility] 00 E11.9 Medical GLUCOSE Branch METER) Misc Blood-Gluco 2019-0 Yes [id number] Use as [facility] se Meter 7-12 directed ity of (TRUE 00:00: daily DX: [place] [facility] 00 E11.9 Medical GLUCOSE Branch METER) Misc Blood-Gluco 2019-0 Yes [id number] Use as [facility] se Meter 7-12 directed ity of (TRUE 00:00: daily DX: [place] [facility] 00 E11.9 Medical GLUCOSE Branch METER) Misc Blood-Gluco 2019-0 Yes [id number] Use as [facility] se Meter 7-12 directed ity of (TRUE 00:00: daily DX: [place] [facility] 00 E11.9 Medical GLUCOSE Branch METER) Misc Blood-Gluco 2019-0 Yes [id number] Use as [facility] se Meter 7-12 directed ity of (TRUE 00:00: daily DX: [place] [facility] 00 E11.9 Medical GLUCOSE Branch METER) Misc Blood-Gluco 2019-0 Yes [id number] Use as [facility] se Meter 7-12 directed ity of (TRUE 00:00: daily DX: [place] [facility] 00 E11.9 Medical GLUCOSE Branch METER) Misc Blood-Gluco 2019-0 Yes [id number] Use as [facility] se Meter 7-12 directed ity of (TRUE 00:00: daily DX: [place] [facility] 00 E11.9 Medical GLUCOSE Branch METER) Misc Blood-Gluco 2019-0 Yes [id number] Use as [facility] se Meter 7-12 directed ity of (TRUE 00:00: daily DX: [place] [facility] 00 E11.9 Medical GLUCOSE Branch METER) Misc Blood-Gluco 2019-0 Yes [id number] Use as [facility] se Meter 7-12 directed ity of (TRUE 00:00: daily DX: [place] [facility] 00 E11.9 Medical GLUCOSE Branch METER) Misc Blood-Gluco 2019-0 Yes [id number] Use as [facility] se Meter 7-12 directed ity of (TRUE 00:00: daily DX: [place] [facility] 00 E11.9 Medical GLUCOSE Branch METER) Misc Blood-Gluco 2019-0 Yes [id number] Use as [facility] se Meter 7-12 directed ity of (TRUE 00:00: daily DX: [place] [facility] 00 E11.9 Medical GLUCOSE Branch METER) Misc Blood-Gluco 2019-0 Yes [id number] Use as [facility] se Meter 7-12 directed ity of (TRUE 00:00: daily DX: [place] [facility] 00 E11.9 Medical GLUCOSE Branch METER) Misc Blood-Gluco 2019-0 Yes [id number] Use as [facility] se Meter 7-12 directed ity of (TRUE 00:00: daily DX: [place] [facility] 00 E11.9 Medical GLUCOSE Branch METER) Misc Blood-Gluco 2019-0 Yes [id number] Use as [facility] se Meter 7-12 directed ity of (TRUE 00:00: daily DX: [place] [facility] 00 E11.9 Medical GLUCOSE Branch METER) Misc Blood-Gluco 2019-0 Yes [id number] Use as [facility] se Meter 7-12 directed ity of (TRUE 00:00: daily DX: [place] [facility] 00 E11.9 Medical GLUCOSE [facility] METER) [facility] Yes [id number] Use as [facility] se Meter 7-12 directed ity of (TRUE 00:00: daily DX: [place] [facility] 00 E11.9 Medical GLUCOSE Branch METER) Misc Blood-Gluco 2019-0 Yes [id number] Use as [facility] se Meter 7-12 directed ity of (TRUE 00:00: daily DX: [place] [facility] 00 E11.9 Medical GLUCOSE Branch METER) Misc Blood-Gluco 2019-0 Yes [id number] Use as [facility] se Meter 7-12 directed ity of (TRUE 00:00: daily DX: [place] [facility] 00 E11.9 Medical GLUCOSE Branch METER) Misc Blood-Gluco 2019-0 Yes [id number] Use as [facility] se Meter 7-12 directed ity of (TRUE 00:00: daily DX: [place] [facility] 00 E11.9 Medical GLUCOSE Branch METER) Misc Blood-Gluco 2019-0 Yes [id number] Use as [facility] se Meter 7-12 directed ity of (TRUE 00:00: daily DX: [place] [facility] 00 E11.9 Medical GLUCOSE Branch METER) Misc Blood-Gluco 2019-0 Yes [id number] Use as [facility] se Meter 7-12 directed ity of (TRUE 00:00: daily DX: [place] [facility] 00 E11.9 Medical GLUCOSE Branch METER) Misc Blood-Gluco 2019-0 Yes [id number] Use as [facility] se Meter 7-12 directed ity of (TRUE 00:00: daily DX: [place] [facility] 00 E11.9 Medical GLUCOSE [facility] METER) Misc Blood-Gluco 2019-0 Yes [id number] Use as [facility] se Meter 7-12 directed ity of (TRUE 00:00: daily DX: [place] [facility] 00 E11.9 Medical GLUCOSE [facility] METER) Misc Blood-Gluco 2019-0 Yes [id number] Use as [facility] se Meter 7-12 directed ity of (TRUE 00:00: daily DX: [place] [facility] 00 E11.9 Medical GLUCOSE Branch METER) Misc Blood-Gluco 2019-0 Yes [id number] Use as [facility] se Meter 7-12 directed ity of (TRUE 00:00: daily DX: [place] [facility] 00 E11.9 Medical GLUCOSE [facility] METER) [facility] Yes [id number] Use as [facility] se Meter 7-12 directed ity of (TRUE 00:00: daily DX: [place] [facility] 00 E11.9 Medical GLUCOSE Branch METER) Misc Blood-Gluco 2019-0 Yes [id number] Use as [facility] se Meter 7-12 directed ity of (TRUE 00:00: daily DX: [place] [facility] 00 E11.9 Medical GLUCOSE Branch METER) Misc Blood-Gluco 2019-0 Yes [id number] Use as [facility] se Meter 7-12 directed ity of (TRUE 00:00: daily DX: [place] [facility] 00 E11.9 Medical GLUCOSE Branch METER) Misc Blood-Gluco 2019-0 Yes [id number] Use as [facility] se Meter 7-12 directed ity of (TRUE 00:00: daily DX: [place] [facility] 00 E11.9 Medical GLUCOSE Branch METER) Misc Blood-Gluco 2019-0 Yes [id number] Use as [facility] se Meter 7-12 directed ity of (TRUE 00:00: daily DX: [place] [facility] 00 E11.9 Medical GLUCOSE Branch METER) Misc Blood-Gluco 2019-0 Yes [id number] Use as [facility] se Meter 7-12 directed ity of (TRUE 00:00: daily DX: [place] [facility] 00 E11.9 Medical GLUCOSE Branch METER) Misc Blood-Gluco 2019-0 Yes [id number] Use as [facility] se Meter 7-12 directed ity of (TRUE 00:00: daily DX: [place] [facility] 00 E11.9 Medical GLUCOSE Branch METER) Misc Blood-Gluco 2019-0 Yes [id number] Use as [facility] se Meter 7-12 directed ity of (TRUE 00:00: daily DX: [place] [facility] 00 E11.9 Medical GLUCOSE Branch METER) Misc Blood-Gluco 2019-0 Yes [id number] Use as [facility] se Meter 7-12 directed ity of (TRUE 00:00: daily DX: [place] [facility] 00 E11.9 Medical GLUCOSE Branch METER) Misc Blood-Gluco 2019-0 Yes [id number] Use as [facility] se Meter 7-12 directed ity of (TRUE 00:00: daily DX: [place] [facility] 00 E11.9 Medical GLUCOSE Branch METER) Misc Blood-Gluco 2019-0 Yes [id number] Use as [facility] se Meter 7-12 directed ity of (TRUE 00:00: daily DX: [place] [facility] 00 E11.9 Medical GLUCOSE Branch METER) Misc Blood-Gluco 2019-0 Yes [id number] Use as [facility] se Meter 7-12 directed ity of (TRUE 00:00: daily DX: [place] [facility] 00 E11.9 Medical GLUCOSE Branch METER) Misc Blood-Gluco 2019-0 Yes [id number] Use as [facility] se Meter 7-12 directed ity of (TRUE 00:00: daily DX: [place] [facility] 00 E11.9 Medical GLUCOSE Branch METER) Misc Blood-Gluco 2019-0 Yes [id number] Use as [facility] se Meter 7-12 directed ity of (TRUE 00:00: daily DX: [place] [facility] 00 E11.9 Medical GLUCOSE Branch METER) Misc Blood-Gluco 2019-0 Yes [id number] Use as [facility] se Meter 7-12 directed ity of (TRUE 00:00: daily DX: [place] [facility] 00 E11.9 Medical GLUCOSE Branch METER) Misc Blood-Gluco 2019-0 Yes [id number] Use as [facility] se Meter 7-12 directed ity of (TRUE 00:00: daily DX: [place] [facility] 00 E11.9 Medical GLUCOSE Branch METER) Misc Blood-Gluco 2019-0 Yes [id number] Use as [facility] se Meter 7-12 directed ity of (TRUE 00:00: daily DX: [place] [facility] 00 E11.9 Medical GLUCOSE [facility] METER) [facility] Yes [id number] Use as [facility] se Meter 7-12 directed ity of (TRUE 00:00: daily DX: [place] [facility] 00 E11.9 Medical GLUCOSE Branch METER) [facility]0 Yes [id number] Use as [facility] se Meter 7-12 directed ity of (TRUE 00:00: daily DX: [place] [facility] 00 E11.9 Medical GLUCOSE Branch METER) [facility] Yes [id number] Use as [facility] se Meter 7-12 directed ity of (TRUE 00:00: daily DX: [place] [facility] 00 E11.9 Medical GLUCOSE [facility] METER) [facility]0 Yes [id number] Use as [facility] se Meter 7-12 directed ity of (TRUE 00:00: daily DX: [place] [facility] 00 E11.9 Medical GLUCOSE Branch METER) [facility] Blood-Gluco 2019-0 Yes [id number] Use as [facility] se Meter 7-12 directed ity of (TRUE 00:00: daily DX: [place] [facility] 00 E11.9 Medical GLUCOSE Branch METER) [facility] [place] [facility] Blood-Gluco 2019-0 Yes [id number] Use as [facility] se Meter 7-12 directed ity of (TRUE 00:00: daily DX: [place] [facility] 00 E11.9 Medical GLUCOSE Branch METER) [facility] [place] [facility] Blood-Gluco 2019-0 Yes [id number] Use as [facility] se Meter 7-12 directed ity of (TRUE 00:00: daily DX: [place] [facility] 00 E11.9 Medical GLUCOSE Branch METER) [facility]-0 Yes [id number] Use as [facility] se Meter 7-12 directed ity of (TRUE 00:00: daily DX: [place] [facility] 00 E11.9 Medical GLUCOSE Branch METER) [facility]-0 Yes [id number] Use as [facility] se Meter 7-12 directed ity of (TRUE 00:00: daily DX: [place] [facility] 00 E11.9 Medical GLUCOSE Branch METER) [facility]-0 Yes [id number] Use as [facility] se Meter 7-12 directed ity of (TRUE 00:00: daily DX: [place] [facility] 00 E11.9 Medical GLUCOSE Branch METER) [facility] [place] [facility] Blood-Gluco 2019-0 Yes [id number] Use as [facility] se Meter 7-12 directed ity of (TRUE 00:00: daily DX: [place] [facility] 00 E11.9 Medical GLUCOSE Branch METER) Misc Blood-Gluco 2019-0 Yes [id number] Use as [facility] se Meter 7-12 directed ity of (TRUE 00:00: daily DX: [place] [facility] 00 E11.9 Medical GLUCOSE Branch METER) [facility] [place] [facility] Blood-Gluco 2019-0 Yes [id number] Use as [facility] se Meter 7-12 directed ity of (TRUE 00:00: daily DX: [place] [facility] 00 E11.9 Medical GLUCOSE Branch METER) [facility] [place] [facility] lancets 2016-1 Yes Use as Univers (FREESTYLE 1-01 directed, ity of LANCETS) 28 00:00: TID, [place] gauge Misc 00 Dx:E11.9 [facility] al Branch lancets 2016-1 Yes Use as [facility] (FREESTYLE 1-01 directed, ity of LANCETS) 28 00:00: TID, [place] gauge Misc 00 Dx:E11.9 Medic al Branch lancets 2016-1 Yes Use as [facility] (FREESTYLE 1-01 directed, ity of LANCETS) 28 00:00: TID, [place] gauge Misc 00 Dx:E11.9 Medic al Branch lancets 2016-1 Yes Use as [facility] (FREESTYLE 1-01 directed, ity of LANCETS) 28 00:00: TID, [place] gauge Misc 00 Dx:E11.9 Medic al Branch lancets 2016-1 Yes Use as [facility] (FREESTYLE 1-01 directed, ity of LANCETS) 28 00:00: TID, [place] gauge Misc 00 Dx:E11.9 Medic al Branch lancets 2016-1 Yes Use as [facility] (FREESTYLE 1-01 directed, ity of LANCETS) 28 00:00: TID, [place] gauge Misc 00 Dx:E11.9 Medic al Branch lancets 2016-1 Yes Use as [facility] (FREESTYLE 1-01 directed, ity of LANCETS) 28 00:00: TID, [place] gauge Misc 00 Dx:E11.9 Medic al Branch lancets 2016-1 Yes Use as [facility] (FREESTYLE 1-01 directed, ity of LANCETS) 28 00:00: TID, [place] gauge Misc 00 Dx:E11.9 Medic al Branch lancets 2016- Yes Use as [facility] (FREESTYLE 1-01 directed, ity of LANCETS) 28 00:00: TID, [place] gauge Misc 00 Dx:E11.9 Medic al Branch lancets 2016- Yes Use as [facility] (FREESTYLE 1-01 directed, ity of LANCETS) 28 00:00: TID, [place] gauge Misc 00 Dx:E11.9 Medic al Branch lancets 2016- Yes Use as [facility] (FREESTYLE 1-01 directed, ity of LANCETS) 28 00:00: TID, [place] gauge Misc 00 Dx:E11.9 Medic al Branch lancets 2016-1 Yes Use as [facility] (FREESTYLE 1-01 directed, ity of LANCETS) 28 00:00: TID, [place] gauge Misc 00 Dx:E11.9 Medic al Branch lancets 2016-1 Yes Use as [facility] (FREESTYLE 1-01 directed, ity of LANCETS) 28 00:00: TID, [place] gauge Misc 00 Dx:E11.9 Medic al Branch lancets 2016-1 Yes Use as [facility] (FREESTYLE 1-01 directed, ity of LANCETS) 28 00:00: TID, [place] gauge Misc 00 Dx:E11.9 Medic al Branch lancets 2016-1 Yes Use as [facility] (FREESTYLE 1-01 directed, ity of LANCETS) 28 00:00: TID, [place] gauge Misc 00 Dx:E11.9 Medic al Branch lancets 2016-1 Yes Use as [facility] (FREESTYLE 1-01 directed, ity of LANCETS) 28 00:00: TID, [place] gauge Misc 00 Dx:E11.9 Medic al Branch lancets 2016-1 Yes Use as [facility] (FREESTYLE 1-01 directed, ity of LANCETS) 28 00:00: TID, [place] gauge Misc 00 Dx:E11.9 Medic al Branch lancets 2016-1 Yes Use as [facility] (FREESTYLE 1-01 directed, ity of LANCETS) 28 00:00: TID, [place] gauge Misc 00 Dx:E11.9 Medic al Branch lancets 2016-1 Yes Use as [facility] (FREESTYLE 1-01 directed, ity of LANCETS) 28 00:00: TID, [place] gauge Misc 00 Dx:E11.9 Medic al Branch lancets 2016-1 Yes Use as [facility] (FREESTYLE 1-01 directed, ity of LANCETS) 28 00:00: TID, [place] gauge Misc 00 Dx:E11.9 Medic al Branch lancets 2016-1 Yes Use as [facility] (FREESTYLE 1-01 directed, ity of LANCETS) 28 00:00: TID, [place] gauge Misc 00 Dx:E11.9 Medic al Branch lancets 2016-1 Yes Use as [facility] (FREESTYLE 1-01 directed, ity of LANCETS) 28 00:00: TID, [place] gauge Misc 00 Dx:E11.9 Medic al Branch lancets 2016-1 Yes Use as [facility] (FREESTYLE 1-01 directed, ity of LANCETS) 28 00:00: TID, [place] gauge Misc 00 Dx:E11.9 Medic al Branch lancets 2016-1 Yes Use as [facility] (FREESTYLE 1-01 directed, ity of LANCETS) 28 00:00: TID, [place] gauge Misc 00 Dx:E11.9 Medic al Branch lancets 2016-1 Yes Use as [facility] (FREESTYLE 1-01 directed, ity of LANCETS) 28 00:00: TID, [place] gauge Misc 00 Dx:E11.9 Medic al Branch lancets 2016-1 Yes Use as [facility] (FREESTYLE 1-01 directed, ity of LANCETS) 28 00:00: TID, [place] gauge Misc 00 Dx:E11.9 Medic al Branch lancets 2016-1 Yes Use as [facility] (FREESTYLE 1-01 directed, ity of LANCETS) 28 00:00: TID, [place] gauge Misc 00 Dx:E11.9 Medic al Branch lancets 2016-1 Yes Use as [facility] (FREESTYLE 1-01 directed, ity of LANCETS) 28 00:00: TID, [place] gauge Misc 00 Dx:E11.9 Medic al Branch lancets 2016-1 Yes Use as [facility] (FREESTYLE 1-01 directed, ity of LANCETS) 28 00:00: TID, [place] gauge Misc 00 Dx:E11.9 Medic al Branch lancets 2016-1 Yes Use as [facility] (FREESTYLE 1-01 directed, ity of LANCETS) 28 00:00: TID, [place] gauge Misc 00 Dx:E11.9 Medic al Branch lancets 2016-1 Yes Use as [facility] (FREESTYLE 1-01 directed, ity of LANCETS) 28 00:00: TID, [place] gauge Misc 00 Dx:E11.9 Medic al Branch lancets 2016-1 Yes Use as [facility] (FREESTYLE 1-01 directed, ity of LANCETS) 28 00:00: TID, [place] gauge Misc 00 Dx:E11.9 Medic al Branch lancets 2016-1 Yes Use as [facility] (FREESTYLE 1-01 directed, ity of LANCETS) 28 00:00: TID, [place] gauge Misc 00 Dx:E11.9 Medic al Branch lancets 2016-1 Yes Use as [facility] (FREESTYLE 1-01 directed, ity of LANCETS) 28 00:00: TID, [place] gauge Misc 00 Dx:E11.9 Medic al Branch lancets 2016-1 Yes Use as [facility] (FREESTYLE 1-01 directed, ity of LANCETS) 28 00:00: TID, [place] gauge Misc 00 Dx:E11.9 Medic al Branch lancets 2016-1 Yes Use as [facility] (FREESTYLE 1-01 directed, ity of LANCETS) 28 00:00: TID, [place] gauge Misc 00 Dx:E11.9 Medic al Branch lancets 2016-1 Yes Use as [facility] (FREESTYLE 1-01 directed, ity of LANCETS) 28 00:00: TID, [place] gauge Misc 00 Dx:E11.9 Medic al Branch lancets 2016-1 Yes Use as [facility] (FREESTYLE 1-01 directed, ity of LANCETS) 28 00:00: TID, [place] gauge Misc 00 Dx:E11.9 Medic al Branch lancets 2016-1 Yes Use as [facility] (FREESTYLE 1-01 directed, ity of LANCETS) 28 00:00: TID, [place] gauge Misc 00 Dx:E11.9 Medic al Branch lancets 2016-1 Yes Use as [facility] (FREESTYLE 1-01 directed, ity of LANCETS) 28 00:00: TID, [place] gauge Misc 00 Dx:E11.9 Medic al Branch lancets 2016-1 Yes Use as [facility] (FREESTYLE 1-01 directed, ity of LANCETS) 28 00:00: TID, [place] gauge Misc 00 Dx:E11.9 Medic al Branch lancets 2016- Yes Use as [facility] (FREESTYLE 1-01 directed, ity of LANCETS) 28 00:00: TID, [place] gauge Misc 00 Dx:E11.9 Medic al Branch lancets 2016- Yes Use as [facility] (FREESTYLE 1-01 directed, ity of LANCETS) 28 00:00: TID, [place] gauge Misc 00 Dx:E11.9 Medic al Branch lancets 2016-1 Yes Use as [facility] (FREESTYLE 1-01 directed, ity of LANCETS) 28 00:00: TID, [place] gauge Misc 00 Dx:E11.9 Medic al Branch lancets 2016-1 Yes Use as [facility] (FREESTYLE 1-01 directed, ity of LANCETS) 28 00:00: TID, [place] gauge Misc 00 Dx:E11.9 Medic al Branch lancets 2016-1 Yes Use as [facility] (FREESTYLE 1-01 directed, ity of LANCETS) 28 00:00: TID, [place] gauge Misc 00 Dx:E11.9 Medic al Branch lancets 2016-1 Yes Use as [facility] (FREESTYLE 1-01 directed, ity of LANCETS) 28 00:00: TID, [place] gauge Misc 00 Dx:E11.9 Medic al Branch lancets 2016-1 Yes Use as [facility] (FREESTYLE 1-01 directed, ity of LANCETS) 28 00:00: TID, [place] gauge Misc 00 Dx:E11.9 Medic al Branch lancets 2016-1 Yes Use as [facility] (FREESTYLE 1-01 directed, ity of LANCETS) 28 00:00: TID, [place] gauge Misc 00 Dx:E11.9 Medic al Branch lancets 2016-1 Yes Use as [facility] (FREESTYLE 1-01 directed, ity of LANCETS) 28 00:00: TID, [place] gauge Misc 00 Dx:E11.9 Medic al Branch lancets 2016-1 Yes Use as [facility] (FREESTYLE 1-01 directed, ity of LANCETS) 28 00:00: TID, [place] gauge Misc 00 Dx:E11.9 Medic al Branch lancets 2016-1 Yes Use as [facility] (FREESTYLE 1-01 directed, ity of LANCETS) 28 00:00: TID, [place] gauge Misc 00 Dx:E11.9 Medic al Branch lancets 2016- Yes Use as [facility] (FREESTYLE 1-01 directed, ity of LANCETS) 28 00:00: TID, [place] gauge Misc 00 Dx:E11.9 Medic al Branch lancets 2016- Yes Use as [facility] (FREESTYLE 1-01 directed, ity of LANCETS) 28 00:00: TID, [place] gauge Misc 00 Dx:E11.9 Medic al Branch lancets 2016- Yes Use as [facility] (FREESTYLE 1-01 directed, ity of LANCETS) 28 00:00: TID, [place] gauge Misc 00 Dx:E11.9 Medic al Branch lancets 2016- Yes Use as [facility] (FREESTYLE 1-01 directed, ity of LANCETS) 28 00:00: TID, [place] gauge Misc 00 Dx:E11.9 Medic al Branch lancets 2016- Yes Use as [facility] (FREESTYLE 1-01 directed, ity of LANCETS) 28 00:00: TID, [place] gauge Misc 00 Dx:E11.9 Medic al Branch lancets 2016-1 Yes Use as [facility] (FREESTYLE 1-01 directed, ity of LANCETS) 28 00:00: TID, [place] gauge Misc 00 Dx:E11.9 Medic al Branch lancets 2016-1 Yes Use as [facility] (FREESTYLE 1-01 directed, ity of LANCETS) 28 00:00: TID, [place] gauge Misc 00 Dx:E11.9 Medic al Branch lancets 2016-1 Yes Use as [facility] (FREESTYLE 1-01 directed, ity of LANCETS) 28 00:00: TID, [place] gauge Misc 00 Dx:E11.9 Medic al Branch lancets 2016-1 Yes Use as [facility] (FREESTYLE 1-01 directed, ity of LANCETS) 28 00:00: TID, [place] gauge Misc 00 Dx:E11.9 Medic al Branch lancets 2016-1 Yes Use as [facility] (FREESTYLE 1-01 directed, ity of LANCETS) 28 00:00: TID, [place] gauge Misc 00 Dx:E11.9 Medic al Branch lancets 2016-1 Yes Use as [facility] (FREESTYLE 1-01 directed, ity of LANCETS) 28 00:00: TID, [place] gauge Misc 00 Dx:E11.9 Medic al Branch lancets 2016- Yes Use as [facility] (FREESTYLE 1-01 directed, ity of LANCETS) 28 00:00: TID, [place] gauge Misc 00 Dx:E11.9 Medic al Branch lancets 2016- Yes Use as [facility] (FREESTYLE 1-01 directed, ity of LANCETS) 28 00:00: TID, [place] gauge Misc 00 Dx:E11.9 Medic al Branch lancets 2016- Yes Use as [facility] (FREESTYLE 1-01 directed, ity of LANCETS) 28 00:00: TID, [place] gauge Misc 00 Dx:E11.9 Medic al Branch lancets 2016- Yes Use as [facility] (FREESTYLE 1-01 directed, ity of LANCETS) 28 00:00: TID, [place] gauge Misc 00 Dx:E11.9 Medic al Branch lancets 2016- Yes Use as [facility] (FREESTYLE 1-01 directed, ity of LANCETS) 28 00:00: TID, [place] gauge Misc 00 Dx:E11.9 Medic al Branch lancets 2016- Yes Use as [facility] (FREESTYLE 1-01 directed, ity of LANCETS) 28 00:00: TID, [place] gauge Misc 00 Dx:E11.9 Medic al Branch lancets 2016- Yes Use as [facility] (FREESTYLE 1-01 directed, ity of LANCETS) 28 00:00: TID, [place] gauge Misc 00 Dx:E11.9 Medic al Branch lancets 2016- Yes Use as [facility] (FREESTYLE 1-01 directed, ity of LANCETS) 28 00:00: TID, [place] gauge Misc 00 Dx:E11.9 Medic al Branch lancets 2016-1 Yes Use as [facility] (FREESTYLE 1-01 directed, ity of LANCETS) 28 00:00: TID, [place] gauge Misc 00 Dx:E11.9 Medic al Branch lancets 2016-1 Yes Use as [facility] (FREESTYLE 1-01 directed, ity of LANCETS) 28 00:00: TID, [place] gauge Misc 00 Dx:E11.9 Medic al Branch lancets 2016-1 Yes Use as [facility] (FREESTYLE 1-01 directed, ity of LANCETS) 28 00:00: TID, [place] gauge Misc 00 Dx:E11.9 Medic al Branch lancets 2016-1 Yes Use as [facility] (FREESTYLE 1-01 directed, ity of LANCETS) 28 00:00: TID, [place] gauge Misc 00 Dx:E11.9 Medic al Branch lancets 2016- Yes Use as [facility] (FREESTYLE 1-01 directed, ity of LANCETS) 28 00:00: TID, [place] gauge Misc 00 Dx:E11.9 Medic al Branch lancets 2016- Yes Use as [facility] (FREESTYLE 1-01 directed, ity of LANCETS) 28 00:00: TID, [place] gauge Misc 00 Dx:E11.9 Medic al Branch lancets 2016- Yes Use as [facility] (FREESTYLE 1-01 directed, ity of LANCETS) 28 00:00: TID, [place] gauge Misc 00 Dx:E11.9 Medic al Branch lancets 2016- Yes Use as [facility] (FREESTYLE 1-01 directed, ity of LANCETS) 28 00:00: TID, [place] gauge Misc 00 Dx:E11.9 Medic al Branch lancets 2016-1 Yes Use as [facility] (FREESTYLE 1-01 directed, ity of LANCETS) 28 00:00: TID, [place] gauge Misc 00 Dx:E11.9 Medic al Branch lancets 2016- Yes Use as [facility] (FREESTYLE 1-01 directed, ity of LANCETS) 28 00:00: TID, [place] gauge Misc 00 Dx:E11.9 Medic al Branch lancets 2016- Yes Use as [facility] (FREESTYLE 1-01 directed, ity of LANCETS) 28 00:00: TID, [place] gauge Misc 00 Dx:E11.9 Medic al Branch lancets 2016-1 Yes Use as [facility] (FREESTYLE 1-01 directed, ity of LANCETS) 28 00:00: TID, [place] gauge Misc 00 Dx:E11.9 Medic al Branch lancets 2016-1 Yes Use as [facility] (FREESTYLE 1-01 directed, ity of LANCETS) 28 00:00: TID, [place] gauge Misc 00 Dx:E11.9 Medic al Branch lancets 2016-1 Yes Use as [facility] (FREESTYLE 1-01 directed, ity of LANCETS) 28 00:00: TID, [place] gauge Misc 00 Dx:E11.9 Medic al Branch lancets 2016-1 Yes Use as [facility] (FREESTYLE 1-01 directed, ity of LANCETS) 28 00:00: TID, [place] gauge Misc 00 Dx:E11.9 Medic al Branch lancets 2016- Yes Use as [facility] (FREESTYLE 1-01 directed, ity of LANCETS) 28 00:00: TID, [place] gauge Misc 00 Dx:E11.9 Medic al Branch lancets 2016- Yes Use as [facility] (FREESTYLE 1-01 directed, ity of LANCETS) 28 00:00: TID, [place] gauge Misc 00 Dx:E11.9 Medic al Branch lancets 2016- Yes Use as [facility] (FREESTYLE 1-01 directed, ity of LANCETS) 28 00:00: TID, [place] gauge Misc 00 Dx:E11.9 Medic al Branch lancets 2016- Yes Use as [facility] (FREESTYLE 1-01 directed, ity of LANCETS) 28 00:00: TID, [place] gauge Misc 00 Dx:E11.9 Medic al Branch lancets 2016- Yes Use as [facility] (FREESTYLE 1-01 directed, ity of LANCETS) 28 00:00: TID, [place] gauge Misc 00 Dx:E11.9 Medic al Branch lancets 2016- Yes Use as [facility] (FREESTYLE 1-01 directed, ity of LANCETS) 28 00:00: TID, [place] gauge Misc 00 Dx:E11.9 Medic al Branch lancets 2016- Yes Use as [facility] (FREESTYLE 1-01 directed, ity of LANCETS) 28 00:00: TID, [place] gauge Misc 00 Dx:E11.9 Medic al Branch lancets 2016- Yes Use as [facility] (FREESTYLE 1-01 directed, ity of LANCETS) 28 00:00: TID, [place] gauge Misc 00 Dx:E11.9 Medic al Branch lancets 2016- Yes Use as [facility] (FREESTYLE 1-01 directed, ity of LANCETS) 28 00:00: TID, [place] gauge Misc 00 Dx:E11.9 Medic al Branch lancets 2016- Yes Use as [facility] (FREESTYLE 1-01 directed, ity of LANCETS) 28 00:00: TID, [place] gauge Misc 00 Dx:E11.9 Medic al Branch lancets 2016- Yes Use as [facility] (FREESTYLE 1-01 directed, ity of LANCETS) 28 00:00: TID, [place] gauge Misc 00 Dx:E11.9 Medic al Branch lancets 2016-1 Yes Use as [facility] (FREESTYLE 1-01 directed, ity of LANCETS) 28 00:00: TID, [place] gauge Misc 00 Dx:E11.9 Medic al Branch lancets 2016-1 Yes Use as [facility] (FREESTYLE 1-01 directed, ity of LANCETS) 28 00:00: TID, [place] gauge Misc 00 Dx:E11.9 Medic al Branch lancets 2016-1 Yes Use as [facility] (FREESTYLE 1-01 directed, ity of LANCETS) 28 00:00: TID, [place] gauge Misc 00 Dx:E11.9 Medic al Branch lancets 2016-1 Yes Use as [facility] (FREESTYLE 1-01 directed, ity of LANCETS) 28 00:00: TID, [place] gauge Misc 00 Dx:E11.9 Medic al Branch lancets 2016-1 Yes Use as [facility] (FREESTYLE 1-01 directed, ity of LANCETS) 28 00:00: TID, [place] gauge Misc 00 Dx:E11.9 Medic al Branch lancets 2016-1 Yes Use as [facility] (FREESTYLE 1-01 directed, ity of LANCETS) 28 00:00: TID, [place] gauge Misc 00 Dx:E11.9 Medic al Branch lancets 2016-1 Yes Use as [facility] (FREESTYLE 1-01 directed, ity of LANCETS) 28 00:00: TID, [place] gauge Misc 00 Dx:E11.9 Medic al Branch lancets 2016-1 Yes Use as [facility] (FREESTYLE 1-01 directed, ity of LANCETS) 28 00:00: TID, [place] gauge Misc 00 Dx:E11.9 Medic al Branch lancets 2016-1 Yes Use as [facility] (FREESTYLE 1-01 directed, ity of LANCETS) 28 00:00: TID, [place] gauge Misc 00 Dx:E11.9 Medic al Branch lancets 2016-1 Yes Use as [facility] (FREESTYLE 1-01 directed, ity of LANCETS) 28 00:00: TID, [place] gauge Misc 00 Dx:E11.9 Medic al Branch lancets 2016-1 Yes Use as [facility] (FREESTYLE 1-01 directed, ity of LANCETS) 28 00:00: TID, [place] gauge Misc 00 Dx:E11.9 Medic al Branch lancets 2016- Yes Use as [facility] (FREESTYLE 1-01 directed, ity of LANCETS) 28 00:00: TID, [place] gauge Misc 00 Dx:E11.9 Medic al Branch lancets 2016- Yes Use as [facility] (FREESTYLE 1-01 directed, ity of LANCETS) 28 00:00: TID, [place] gauge Misc 00 Dx:E11.9 Medic al Branch lancets 2016- Yes Use as [facility] (FREESTYLE 1-01 directed, ity of LANCETS) 28 00:00: TID, [place] gauge Misc 00 Dx:E11.9 Medic al Branch lancets 2016-1 Yes Use as [facility] (FREESTYLE 1-01 directed, ity of LANCETS) 28 00:00: TID, [place] gauge Misc 00 Dx:E11.9 Medic al Branch lancets 2016-1 Yes Use as [facility] (FREESTYLE 1-01 directed, ity of LANCETS) 28 00:00: TID, [place] gauge Misc 00 Dx:E11.9 Medic al Branch lancets 2016-1 Yes Use as [facility] (FREESTYLE 1-01 directed, ity of LANCETS) 28 00:00: TID, [place] gauge Misc 00 Dx:E11.9 Medic al Branch lancets 2016-1 Yes Use as [facility] (FREESTYLE 1-01 directed, ity of LANCETS) 28 00:00: TID, [place] gauge Misc 00 Dx:E11.9 Medic al Branch lancets 2016-1 Yes Use as [facility] (FREESTYLE 1-01 directed, ity of LANCETS) 28 00:00: TID, [place] gauge Misc 00 Dx:E11.9 Medic al Branch lancets 2016-1 Yes Use as [facility] (FREESTYLE 1-01 directed, ity of LANCETS) 28 00:00: TID, [place] gauge Misc 00 Dx:E11.9 Medic al Branch lancets 2016-1 Yes Use as [facility] (FREESTYLE 1-01 directed, ity of LANCETS) 28 00:00: TID, [place] gauge Misc 00 Dx:E11.9 Medic al Branch lancets 2016-1 Yes Use as [facility] (FREESTYLE 1-01 directed, ity of LANCETS) 28 00:00: TID, [place] gauge Misc 00 Dx:E11.9 Medic al Branch lancets 2016-1 Yes Use as [facility] (FREESTYLE 1-01 directed, ity of LANCETS) 28 00:00: TID, [place] gauge Misc 00 Dx:E11.9 Medic al Branch lancets 2016-1 Yes Use as [facility] (FREESTYLE 1-01 directed, ity of LANCETS) 28 00:00: TID, [place] gauge Misc 00 Dx:E11.9 Medic al Branch lancets 2016-1 Yes Use as [facility] (FREESTYLE 1-01 directed, ity of LANCETS) 28 00:00: TID, [place] gauge Misc 00 Dx:E11.9 Medic al Branch lancets 2016-1 Yes Use as [facility] (FREESTYLE 1-01 directed, ity of LANCETS) 28 00:00: TID, [place] gauge Misc 00 Dx:E11.9 Medic al Branch lancets 2016-1 Yes Use as [facility] (FREESTYLE 1-01 directed, ity of LANCETS) 28 00:00: TID, [place] gauge Misc 00 Dx:E11.9 Medic al Branch lancets 2016-1 Yes Use as [facility] (FREESTYLE 1-01 directed, ity of LANCETS) 28 00:00: TID, [place] gauge Misc 00 Dx:E11.9 Medic al Branch lancets 2016-1 Yes Use as [facility] (FREESTYLE 1-01 directed, ity of LANCETS) 28 00:00: TID, [place] gauge Misc 00 Dx:E11.9 Medic al Branch lancets 2016-1 Yes Use as [facility] (FREESTYLE 1-01 directed, ity of LANCETS) 28 00:00: TID, [place] gauge Misc 00 Dx:E11.9 Medic al Branch lancets 2016-1 Yes Use as [facility] (FREESTYLE 1-01 directed, ity of LANCETS) 28 00:00: TID, [place] gauge Misc 00 Dx:E11.9 Medic al Branch lancets 2016-1 Yes Use as [facility] (FREESTYLE 1-01 directed, ity of LANCETS) 28 00:00: TID, [place] gauge Misc 00 Dx:E11.9 Medic al Branch lancets 2016-1 Yes Use as [facility] (FREESTYLE 1-01 directed, ity of LANCETS) 28 00:00: TID, [place] gauge Misc 00 Dx:E11.9 Medic al Branch lancets 2016-1 Yes Use as [facility] (FREESTYLE 1-01 directed, ity of LANCETS) 28 00:00: TID, [place] gauge Misc 00 Dx:E11.9 Medic al Branch lancets 2016-1 Yes Use as [facility] (FREESTYLE 1-01 directed, ity of LANCETS) 28 00:00: TID, [place] gauge Misc 00 Dx:E11.9 Medic al Branch lancets 2016-1 Yes Use as [facility] (FREESTYLE 1-01 directed, ity of LANCETS) 28 00:00: TID, [place] gauge Misc 00 Dx:E11.9 Medic al Branch lancets 2016-1 Yes Use as [facility] (FREESTYLE 1-01 directed, ity of LANCETS) 28 00:00: TID, [place] gauge Misc 00 Dx:E11.9 Medic al Branch lancets 2016-1 Yes Use as [facility] (FREESTYLE 1-01 directed, ity of LANCETS) 28 00:00: TID, [place] gauge Misc 00 Dx:E11.9 Medic al Branch lancets 2016-1 Yes Use as [facility] (FREESTYLE 1-01 directed, ity of LANCETS) 28 00:00: TID, [place] gauge Misc 00 Dx:E11.9 Medic al Branch lancets 2016-1 Yes Use as [facility] (FREESTYLE 1-01 directed, ity of LANCETS) 28 00:00: TID, [place] gauge Misc 00 Dx:E11.9 Medic al Branch lancets 2016-1 Yes Use as [facility] (FREESTYLE 1-01 directed, ity of LANCETS) 28 00:00: TID, [place] gauge Misc 00 Dx:E11.9 Medic al Branch lancets 2016-1 Yes Use as [facility] (FREESTYLE 1-01 directed, ity of LANCETS) 28 00:00: TID, [place] gauge Misc 00 Dx:E11.9 Medic al Branch lancets 2016-1 Yes Use as [facility] (FREESTYLE 1-01 directed, ity of LANCETS) 28 00:00: TID, [place] gauge Misc 00 Dx:E11.9 Medic al Branch lancets 2016-1 Yes Use as [facility] (FREESTYLE 1-01 directed, ity of LANCETS) 28 00:00: TID, [place] gauge Misc 00 Dx:E11.9 Medic al Branch lancets 2016- Yes Use as [facility] (FREESTYLE 1-01 directed, ity of LANCETS) 28 00:00: TID, [facility] Misc 00 Dx:E11.9 Medic al Branch lancets 2016- Yes Use as [facility] (FREESTYLE 1-01 directed, ity of LANCETS) 28 00:00: TID, [facility] Misc 00 Dx:E11.9 Medic al Branch lancets 2016- Yes Use as [facility] (FREESTYLE 1-01 directed, ity of LANCETS) 28 00:00: TID, [facility] Misc 00 Dx:E11.9 Medic al Branch lancets 2016 Yes Use as [facility] (FREESTYLE 1-01 directed, ity of LANCETS) 28 00:00: TID, [facility] Misc 00 Dx:E11.9 Medic al Branch lancets 2016 Yes Use as [facility] (FREESTYLE 1-01 directed, ity of LANCETS) 28 00:00: TID, [facility] Misc 00 Dx:E11.9 Medic al Branch lancets 2016 Yes Use as [facility] (FREESTYLE 1-01 directed, ity of LANCETS) 28 00:00: TID, [facility] Misc 00 Dx:E11.9 Medic al Branch lancets 2016- Yes Use as [facility] (FREESTYLE 1-01 directed, ity of LANCETS) 28 00:00: TID, [facility] Misc 00 Dx:E11.9 Medic al Branch lancets 2016 Yes Use as [facility] (FREESTYLE 1-01 directed, ity of LANCETS) 28 00:00: TID, [facility] Misc 00 Dx:E11.9 Medic al Branch TRUEplus TRUEplus Yes Zhang USE UTD QD Common Pen [place] Ayala [facility] Metoprolol Metoprolol Yes Zhang 1 tablet Common Succinate Succinate Ayala Spir it ER ER [facility] BuPROPion BuPROPion Yes Zhang 1 tablet Common HCl ER (XL) HCl ER (XL) Ayala in the Spirit [facility] Lisinopril Lisinopril Yes Zhang 1 tablet Common Ayala [facility] Trazodone Trazodone Yes Zhang 1 tablet Common HCl HCl Ayala at bedtime [facility] Restasis Restasis Yes Zhang INT 1 GTT Common Ayala IN OU BID [facility] Cetirizine Cetirizine Yes Zhang not C ommon HCl HCl Ayala defined [facility] Metformin Metformin Yes Zhang TK 2 TS PO Common HCl HCl Ayala [address] [facility] Venlafaxine Venlafaxine Yes Zhang 1 capsule Common HCl ER HCl ER Ayala with food Spiri [facility] Pantoprazol Pantoprazol Yes Zhang 1 tablet Common e Sodium e Sodium Ayala [facility] TRUEplus TRUEplus No TRUEplus Pen [place] Pen [place] Pen 32G X 4 MM 32G X 4 MM [place] 32G X 4 MM Lisinopril Lisinopril No 1{table QD Lisinopril 40 MG 40 MG t} 40 MG Metoprolol Metoprolol No Metoprolol Succinate Succinate Succinate ER 100 MG ER 100 MG ER 100 MG Cetirizine Cetirizine No Cetirizine HCl 10 MG HCl 10 MG HCl 10 MG Venlafaxine Venlafaxine No 1{capsu QD Venlafaxin HCl ER 75 HCl ER 75 le_with e HCl ER MG MG _food} 75 MG Topiramate Topiramate No 1{table QD Topiramate 50 MG 50 MG t} 50 MG BuPROPion BuPROPion No 1{table QD BuPROPion HCl ER (XL) HCl ER (XL) t_in_th HCl ER 150 MG 150 MG e_morni (XL) 150 ng} MG Restasis Restasis No Restasis 0.05 % 0.05 % 0.05 % Tresiba Tresiba No Tresiba FlexTouch FlexTouch FlexTouch 200 UNIT/ML 200 UNIT/ML 200 UNIT/ML Folic Acid Folic Acid No QD Folic Acid 1 MG 1 MG 1 MG Metoprolol Metoprolol No 1{table QD Metoprolol Succinate Succinate t} Succinate ER 100 MG ER 100 MG ER 100 MG Pantoprazol Pantoprazol No 1{table QD Pantoprazo e Sodium 40 e Sodium 40 t} le Sodium MG MG 40 MG Lisinopril Lisinopril No Lisinopril 40 MG 40 MG 40 MG True Metrix True Metrix No True Blood Blood Metrix Glucose Glucose Blood Test - Test - Glucose Test - Clonazepam Clonazepam No Clonazepam 0.5 MG 0.5 MG 0.5 MG Trazodone Trazodone No Trazodone HCl 50 MG HCl 50 MG HCl 50 MG Venlafaxine Venlafaxine No Venlafaxin HCl ER 75 HCl ER 75 e HCl ER MG MG 75 MG Januvia 100 Januvia 100 No Januvia MG MG 100 MG Metformin Metformin No Metformin HCl 500 MG HCl 500 MG HCl 500 MG Trazodone Trazodone No 1{table QD Trazodone HCl 50 MG HCl 50 MG t_at_be HCl 50 MG dtime} Omeprazole Omeprazole Yes Zhang 1 capsule Common Ayala 30 minutes [facility] before [facility] morning [facility] Clonazepam Clonazepam Yes Zhang (schedule Common Ayala iv drug) [facility] Topiramate Topiramate Yes Zhang 1 tablet Common Ayala [facility] Folic Acid Folic Acid Yes Zhang tk 1 t po Common Ayala d [facility] Januvia Januvia Yes Zhang TK 1 T PO Co mmon Ayala D [facility] True Metrix True Metrix Yes Zhang USE Common Blood Blood Ayala DIRECTED [facility] Glucose Glucose TID - [facility] Test Test [facility] Tresiba Tresiba Yes Zhang INJ 56 Commo n FlexTouch FlexTouch Ayala UNITS SC D [facility] Immunizations Ordered Filled Immunization Date Status Comments Sour e Immunization Name Name Zoster Vaccine 2022-02-22 Completed [facility] 00:[facility]:00 [facility] Zoster Vaccine 2022-02-22 Completed [facility] 00:00:00 [facility] Zoster Vaccine 2022-02-22 Completed [facility] 00[facility]00[facility]00 [facility] [facility] Zoster Vaccine 2022-02-22 Completed [facility] 00[facility]00:00 [facility] Zoster Vaccine 2022-02-22 Completed [facility] 00[facility]00:00 [facility] Zoster Vaccine 2022-02-22 Completed [facility] 00:00:00 [facility] Zoster Vaccine 2022-02-22 Completed [facility] 00:00:00 [facility] Zoster Vaccine 2022-02-22 Completed [facility] Recombinant 00[facility]00:00 [facility] Zoster Vaccine 2022-02-22 Completed [facility] Recombinant 00:00:00 [facility] Td 2007-02-01 Completed [facility] 00:00:00 [facility] Td 2007-02-01 Completed [facility] 00:00:00 [facility] Td 2007-02-01 Completed [facility] 00:00:00 [facility] Td 2007-02-01 Completed [facility] 00:00:00 [facility] Td 2007-02-01 Completed [facility] 00:00:00 [facility] Td 2007-02-01 Completed [facility] 00:00:00 [facility] Td 2007-02-01 Completed [facility] 00:00:00 [facility] Td 2007-02-01 Completed [facility] 00:00:00 [facility] Td 2007-02-01 Completed [facility] 00:00:00 [facility] Td 2007-02-01 Completed [facility] 00:00:00 [facility] Td 2007-02-01 Completed [facility] 00:00:00 [facility] Td 2007-02-01 Completed [facility] 00:00:00 [facility] Td 2007-02-01 Completed [facility] 00:00:00 [facility] Td 2007-02-01 Completed [facility] 00:00:00 [facility] Td 2007-02-01 Completed [facility] 00:00:00 [facility] Td 2007-02-01 Completed [facility] 00:00:00 [facility] Td 2007-02-01 Completed [facility] 00:00:00 [facility] Td 2007-02-01 Completed [facility] 00:00:00 [facility] Td 2007-02-01 Completed [facility] 00:00:00 [facility] Td 2007-02-01 Completed [facility] 00:00:00 [facility] Td 2007-02-01 Completed [facility] 00:00:00 [facility] Td 2007-02-01 Completed [facility] 00:00:00 [facility] Td 2007-02-01 Completed [facility] 00:00:00 [facility] Td 2007-02-01 Completed [facility] 00:00:00 [facility] Td 2007-02-01 Completed [facility] 00:00:00 [facility] Td 2007-02-01 Completed [facility] 00:00:00 [facility] Td 2007-02-01 Completed [facility] 00:00:00 [facility] Td 2007-02-01 Completed [facility] 00:00:00 [facility] Td 2007-02-01 Completed [facility] 00:00:00 [facility] Td 2007-02-01 Completed [facility] 00:00:00 [facility] Td 2007-02-01 Completed [facility] 00:00:00 [facility] Td 2007-02-01 Completed [facility] 00:00:00 [facility] Td 2007-02-01 Completed [facility] 00:00:00 [facility] Td 2007-02-01 Completed [facility] 00:00:00 [facility] Td 2007-02-01 Completed [facility] 00:00:00 [facility] Td 2007-02-01 Completed [facility] 00:00:00 [facility] Td 2007-02-01 Completed [facility] 00:00:00 [facility] Td 2007-02-01 Completed [facility] 00:00:00 [facility] Td 2007-02-01 Completed [facility] 00:00:00 [facility] Td 2007-02-01 Completed [facility] 00:00:00 [facility] Td 2007-02-01 Completed [facility] 00:00:00 [facility] Td 2007-02-01 Completed [facility] 00:00:00 [facility] Td 2007-02-01 Completed [facility] 00:00:00 [facility] Td 2007-02-01 Completed [facility] 00:00:00 [facility] Td 2007-02-01 Completed [facility] 00:00:00 [facility] TD, NOS 2007-02-01 Completed [facility] 00:00:00 [facility] TD, NOS 2007-02-01 Completed [facility] 00:00:00 [facility] TD, NOS 2007-02-01 Completed [facility] 00:00:00 [facility] TD, NOS 2007-02-01 Completed [facility] 00:00:00 [facility] TD, NOS 2007-02-01 Completed [facility] 00:00:00 [facility] TD, NOS 2007-02-01 Completed [facility] 00:00:00 [facility] TD, NOS 2007-02-01 Completed [facility] 00:00:00 [facility] TD, NOS 2007-02-01 Completed [facility] 00:00:00 [facility] TD, NOS 2007-02-01 Completed [facility] 00:00:00 [facility] TD, NOS 2007-02-01 Completed [facility] 00:00:00 [facility] TD, NOS 2007-02-01 Completed [facility] 00:00:00 [facility] TD, NOS 2007-02-01 Completed [facility] 00:00:00 [facility] TD, NOS 2007-02-01 Completed [facility] 00:00:00 [facility] TD, NOS 2007-02-01 Completed [facility] 00:00:00 [facility] TD, NOS 2007-02-01 Completed [facility] 00:00:00 [facility] TD, NOS 2007-02-01 Completed [facility] 00:00:00 [facility] TD, NOS 2007-02-01 Completed [facility] 00:00:00 [facility] TD, NOS 2007-02-01 Completed [facility] 00:00:00 [facility] TD, NOS 2007-02-01 Completed [facility] 00:00:00 [facility] TD, NOS 2007-02-01 Completed [facility] 00:00:00 [facility] TD, NOS 2007-02-01 Completed [facility] 00:00:00 [facility] TD, NOS 2007-02-01 Completed [facility] 00:00:00 [facility] TD, NOS 2007-02-01 Completed [facility] 00:00:00 [facility] TD, NOS 2007-02-01 Completed [facility] 00:00:00 [facility] TD, NOS 2007-02-01 Completed [facility] 00:00:00 [facility] TD, NOS 2007-02-01 Completed [facility] 00:00:00 [facility] TD, NOS 2007-02-01 Completed [facility] 00:00:00 [facility] TD, NOS 2007-02-01 Completed [facility] 00:00:00 [facility] TD, NOS 2007-02-01 Completed [facility] 00:00:00 [facility] TD, NOS 2007-02-01 Completed [facility] 00:00:00 [facility] TD, NOS 2007-02-01 Completed [facility] 00:00:00 [facility] TD, NOS 2007-02-01 Completed [facility] 00:00:00 [facility] TD, NOS 2007-02-01 Completed [facility] 00:00:00 [facility] TD, NOS 2007-02-01 Completed [facility] 00:00:00 [facility] TD, NOS 2007-02-01 Completed [facility] 00:00:00 [facility] TD, NOS 2007-02-01 Completed [facility] 00:00:00 [facility] TD, NOS 2007-02-01 Completed [facility] 00:00:00 [facility] TD, NOS 2007-02-01 Completed [facility] 00:00:00 [facility] TD, NOS 2007-02-01 Completed [facility] 00:00:00 [facility] TD, NOS 2007-02-01 Completed [facility] 00:00:00 [facility] TD, NOS 2007-02-01 Completed [facility] 00:00:00 [facility] TD, NOS 2007-02-01 Completed [facility] 00:00:00 [facility] TD, NOS 2007-02-01 Completed [facility] 00:00:00 [facility] TD, NOS 2007-02-01 Completed [facility] 00:00:00 [facility] TD, NOS 2007-02-01 Completed [facility] 00:00:00 [facility] TD, NOS 2007-02-01 Completed [facility] 00:00:00 [facility] TD, NOS 2007-02-01 Completed [facility] 00:00:00 [facility] TD, NOS 2007-02-01 Completed [facility] 00:00:00 [facility] TD, NOS 2007-02-01 Completed [facility] 00:00:00 [facility] TD, NOS 2007-02-01 Completed [facility] 00:00:00 [facility] TD, NOS 2007-02-01 Completed [facility] 00:00:00 [facility] TD, NOS 2007-02-01 Completed [facility] 00:00:00 [facility] TD, NOS 2007-02-01 Completed [facility] 00:00:00 [facility] TD, NOS 2007-02-01 Completed [facility] 00:00:00 [facility] TD, NOS 2007-02-01 Completed [facility] 00:00:00 [facility] TD, NOS 2007-02-01 Completed [facility] 00:00:00 [facility] TD, NOS 2007-02-01 Completed [facility] 00:00:00 [facility] TD, NOS 2007-02-01 Completed [facility] 00:00:00 [facility] TD, NOS 2007-02-01 Completed [facility] 00:00:00 [facility] TD, NOS 2007-02-01 Completed [facility] 00:00:00 [facility] TD, NOS 2007-02-01 Completed [facility] 00:00:00 [facility] TD, NOS 2007-02-01 Completed [facility] 00:00:00 [facility] TD, NOS 2007-02-01 Completed [facility] 00:00:00 [facility] TD, NOS 2007-02-01 Completed [facility] 00:00:00 [facility] TD, NOS 2007-02-01 Completed [facility] 00:00:00 [facility] TD, NOS 2007-02-01 Completed [facility] 00:00:00 [facility] TD, NOS 2007-02-01 Completed [facility] 00:00:00 [facility] TD, NOS 2007-02-01 Completed [facility] 00:00:00 [facility] TD, NOS 2007-02-01 Completed [facility] 00:00:00 [facility] TD, NOS 2007-02-01 Completed [facility] 00:00:00 [facility] TD, NOS 2007-02-01 Completed [facility] 00:00:00 [facility] TD, NOS 2007-02-01 Completed [facility] 00:00:00 [facility] TD, NOS 2007-02-01 Completed [facility] 00:00:00 [facility] TD, NOS 2007-02-01 Completed [facility] 00:00:00 [facility] TD, NOS 2007-02-01 Completed [facility] 00:00:00 [facility] TD, NOS 2007-02-01 Completed [facility] 00:00:00 [facility] TD, NOS 2007-02-01 Completed [facility] 00:00:00 [facility] TD, NOS 2007-02-01 Completed [facility] 00:00:00 [facility] TD, NOS 2007-02-01 Completed [facility] 00:00:00 [facility] TD, NOS 2007-02-01 Completed [facility] 00:00:00 [facility] TD, NOS 2007-02-01 Completed [facility] 00:00:00 [facility] TD, NOS 2007-02-01 Completed [facility] 00:00:00 [facility] TD, NOS 2007-02-01 Completed [facility] 00:00:00 [facility] TD, NOS 2007-02-01 Completed [facility] 00:00:00 [facility] TD, NOS 2007-02-01 Completed [facility] 00:00:00 [facility] TD, NOS 2007-02-01 Completed [facility] 00:00:00 [facility] TD, NOS 2007-02-01 Completed [facility] 00:00:00 [facility] TD, NOS 2007-02-01 Completed [facility] 00:00:00 [facility] TD, NOS 2007-02-01 Completed [facility] 00:00:00 [facility] TD, NOS 2007-02-01 Completed [facility] 00:00:00 [facility] TD, NOS 2007-02-01 Completed [facility] 00:00:00 [facility] TD, NOS 2007-02-01 Completed [facility] 00:00:00 [facility] TD, NOS 2007-02-01 Completed [facility] 00:00:00 [facility] TD, NOS 2007-02-01 Completed [facility] 00:00:00 [facility] TD, NOS 2007-02-01 Completed [facility] 00:00:00 [facility] TD, NOS 2007-02-01 Completed [facility] 00:00:00 [facility] TD, NOS 2007-02-01 Completed [facility] 00:00:00 [facility] TD, NOS 2007-02-01 Completed [facility] 00:00:00 [facility] TD, NOS 2007-02-01 Completed [facility] 00:00:00 [facility] TD, NOS 2007-02-01 Completed [facility] 00:00:00 [facility] TD, NOS 2007-02-01 Completed [facility] 00:00:00 [facility] TD, NOS 2007-02-01 Completed [facility] 00:00:00 [facility] TD, NOS 2007-02-01 Completed [facility] 00:00:00 [facility] TD, NOS 2007-02-01 Completed [facility] of 00:00:00 [facility] Vital Signs Vital Name Observation Time Observation Value Comments Source Systolic blood 2023-03-14 03:14:00 138 mm[Hg] Univer sity of pressure [facility] Diastolic blood 2023-03-14 03:14:00 95 mm[Hg] Unive rsity of pressure [facility] Heart rate 2023-03-14 03:14:00 102 /min [facility] Body temperature 2023-03-14 03:14:00 37.11 [place] [facility] 2023-03-14 03:14:00 18 /min [facility] Body height 2023-03-14 03:14:00 152.4 cm [facility] Body weight 2023-03-14 03:14:00 97.977 kg [facility] BMI 2023-03-14 03:14:00 42.18 kg/m2 [facility] Oxygen saturation in 2023-03-14 03:14:00 100 /min [facility] Arterial blood by [facility] Pulse oximetry Branch Systolic blood 2023-03-13 20:28:00 140 mm[Hg] Univer sity of pressure [facility] Diastolic blood 2023-03-13 20:28:00 94 mm[Hg] Unive rsity of pressure [facility] Heart rate 2023-03-13 20:28:00 104 /min [facility] Body temperature 2023-03-13 20:27:00 36.5 [facility] Respiratory rate 2023-03-13 20:27:00 18 /min [facility] Body height 2023-03-13 20:27:00 152.4 cm [facility] Body weight 2023-03-13 20:27:00 98.175 kg [facility] BMI 2023-03-13 20:27:00 42.27 kg/m2 [facility] Systolic blood 2023-02-25 15:35:00 131 mm[Hg] Univer sity of pressure [facility] Diastolic blood 2023-02-25 15:35:00 80 mm[Hg] Unive rsity of pressure [facility] Heart rate 2023-02-25 15:35:00 104 /min [facility] Body height 2023-02-25 15:35:00 152.4 cm [facility] Body weight 2023-02-25 15:35:00 99.519 kg [facility] BMI 2023-02-25 15:35:00 42.85 kg/m2 [facility] Oxygen saturation in 2023-02-25 15:35:00 98 /min [facility] Arterial blood by [facility] Pulse oximetry Branch Body height 2023-02-22 13:34:00 152.4 cm [facility] Body weight 2023-02-22 13:34:00 99.791 kg [facility] BMI 2023-02-22 13:34:00 42.97 kg/m2 [facility] Heart rate 2023-02-08 18:41:00 120 /min [facility] Systolic blood 2023-02-08 17:44:00 133 mm[Hg] Univer sity of pressure [facility] Diastolic blood 2023-02-08 17:44:00 82 mm[Hg] Unive rsity of pressure [facility] Body temperature 2023-02-08 17:44:00 37.5 [facility] Body height 2023-02-08 17:44:00 152.4 cm [facility] Body weight 2023-02-08 17:44:00 99.837 kg [facility] BMI 2023-02-08 17:44:00 42.99 kg/m2 [facility] Oxygen saturation in 2023-02-08 17:44:00 98 /min [facility] Arterial blood by [place] [facility] Systolic blood 2023-02-01 15:40:00 118 mm[Hg] Univer sity of pressure [facility] Diastolic blood 2023-02-01 15:40:00 78 mm[Hg] Unive rsity of pressure [facility] Heart rate 2023-02-01 15:40:00 93 /min [facility] Body temperature 2023-02-01 15:40:00 36.06 [facility] Respiratory rate 2023-02-01 15:40:00 16 /min [facility] Body height 2023-02-01 15:40:00 152.4 cm [facility] Body weight 2023-02-01 15:40:00 100.154 kg [facility] BMI 2023-02-01 15:40:00 43.12 kg/m2 [facility] Oxygen saturation in 2023-02-01 15:40:00 95 /min [facility] Arterial blood by [place] [facility] Systolic blood 2023-01-08 19:13:00 133 mm[Hg] Univer sity of pressure [facility] Diastolic blood 2023-01-08 19:13:00 84 mm[Hg] Unive rsity of pressure [facility] Heart rate 2023-01-08 19:13:00 105 /min [facility] Body temperature 2023-01-08 19:13:00 36.78 [facility] Respiratory rate 2023-01-08 19:13:00 18 /min [facility] Body height 2023-01-08 19:13:00 152.4 cm [facility] Body weight 2023-01-08 19:13:00 98.34 kg [facility] BMI 2023-01-08 19:13:00 42.34 kg/m2 [facility] Oxygen saturation in 2023-01-08 19:13:00 99 /min [facility] Arterial blood by [facility] Pulse oximetry Branch Body height 2022-12-26 19:00:00 152.4 cm [facility] Body weight 2022-12-26 19:00:00 101.606 kg [facility] BMI 2022-12-26 19:00:00 43.75 kg/m2 [facility] Systolic blood 2022-12-25 13:54:00 138 mm[Hg] Univer sity of pressure [facility] Diastolic blood 2022-12-25 13:54:00 86 mm[Hg] Unive rsity of pressure [facility] Heart rate 2022-12-25 13:54:00 119 /min [facility] Body weight 2022-12-25 13:54:00 101.878 kg [facility] BMI 2022-12-25 13:54:00 43.86 kg/m2 [facility] Oxygen saturation in 2022-12-25 13:54:00 93 /min [facility] Arterial blood by [facility] Pulse oximetry Branch Systolic blood 2022-12-11 19:03:00 129 mm[Hg] Univer sity of pressure [facility] Diastolic blood 2022-12-11 19:03:00 83 mm[Hg] Unive rsity of pressure [facility] Heart rate 2022-12-11 19:03:00 80 /min [facility] Body height 2022-12-11 19:03:00 152.4 cm [facility] Body weight 2022-12-11 19:03:00 102.513 kg [facility] BMI 2022-12-11 19:03:00 44.14 kg/m2 [facility] Oxygen saturation in 2022-12-11 19:03:00 98 /min [facility] Arterial blood by [facility] Pulse oximetry [facility] Body height 2022-12-06 14:19:00 152.4 cm [facility] Body weight 2022-12-06 14:19:00 102.513 kg [facility] BMI 2022-12-06 14:19:00 44.14 kg/m2 [facility] Body weight 2022-11-22 14:01:00 102.513 kg [facility] BMI 2022-11-22 14:01:00 44.14 kg/m2 [facility] Heart rate 2022-11-06 00:32:00 92 /min [facility] Respiratory rate 2022-11-06 00:32:00 30 /min [facility] Oxygen saturation in 2022-11-06 00:32:00 99 /min [facility] Arterial blood by [facility] Pulse oximetry Branch Systolic blood 2022-11-06 00:30:00 127 mm[Hg] Univer sity of pressure [facility] Diastolic blood 2022-11-06 00:30:00 75 mm[Hg] Unive rsity of pressure [facility] Body temperature 2022-11-05 23:46:00 36.72 [facility] Body height 2022-10-29 18:00:00 152.4 cm [facility] Body weight 2022-10-29 18:00:00 101.606 kg [facility] BMI 2022-10-29 18:00:00 43.75 kg/m2 [facility] Systolic blood 2022-11-05 18:43:00 129 mm[Hg] Univer sity of pressure [facility] Diastolic blood 2022-11-05 18:43:00 68 mm[Hg] Unive rsity of pressure [facility] Heart rate 2022-11-05 18:43:00 103 /min [facility] Body temperature 2022-11-05 18:43:00 36.83 [facility] Respiratory rate 2022-11-05 18:43:00 16 /min [facility] Oxygen saturation in 2022-11-05 18:43:00 100 /min [facility] Arterial blood by [place] [facility] P[facility] Body height 2022-10-29 18:00:00 152.4 cm [facility] Body weight 2022-10-29 18:00:00 101.606 kg [facility] BMI 2022-10-29 18:00:00 43.75 kg/m2 [facility] Systolic blood 2022-10-30 14:14:00 110 mm[Hg] Univer sity of pressure [facility] Diastolic blood 2022-10-30 14:14:00 66 mm[Hg] Unive rsity of pressure [facility] Heart rate 2022-10-30 14:14:00 106 /min [facility] Body height 2022-10-30 14:14:00 152.4 cm [facility] Body weight 2022-10-30 14:14:00 102.513 kg [facility] BMI 2022-10-30 14:14:00 44.14 kg/m2 [facility] Oxygen saturation in 2022-10-30 14:14:00 98 /min [facility] Arterial blood by [place] [facility] Systolic blood 2022-10-18 16:50:00 137 mm[Hg] Univer sity of pressure [facility] Diastolic blood 2022-10-18 16:50:00 79 mm[Hg] Unive rsity of pressure [facility] Heart rate 2022-10-18 16:50:00 94 /min [facility] Body temperature 2022-10-18 16:50:00 36.28 [facility] Respiratory rate 2022-10-18 16:50:00 16 /min [facility] Body height 2022-10-18 16:50:00 152.4 cm [facility] Body weight 2022-10-18 16:50:00 101.878 kg [facility] BMI 2022-10-18 16:50:00 43.86 kg/m2 [facility] Oxygen saturation in 2022-10-18 16:50:00 99 /min ra [facility] Arterial blood by [facility] Pulse oximetry Branch Body height 2022-10-17 21:32:00 152.4 cm [facility] Body weight 2022-10-17 21:32:00 101.606 kg [facility] BMI 2022-10-17 21:32:00 43.75 kg/m2 [facility] Systolic blood 2022-09-20 18:58:00 114 mm[Hg] Univer sity of pressure [facility] Diastolic blood 2022-09-20 18:58:00 80 mm[Hg] Unive rsity of pressure [facility] Heart rate 2022-09-20 18:58:00 101 /min [facility] Body weight 2022-09-20 18:58:00 101.606 kg [facility] BMI 2022-09-20 18:58:00 43.75 kg/m2 [facility] Oxygen saturation in 2022-09-20 18:58:00 99 /min [facility] Arterial blood by [facility] Pulse oximetry Branch Systolic blood 2022-09-11 14:22:00 153 mm[Hg] Univer sity of pressure [facility] Diastolic blood 2022-09-11 14:22:00 90 mm[Hg] Unive rsity of pressure [facility] Heart rate 2022-09-11 14:22:00 94 /min [facility] Respiratory rate 2022-09-11 14:22:00 18 /min [facility] Body height 2022-09-11 14:22:00 152.4 cm [facility] Body weight 2022-09-11 14:22:00 101.606 kg [facility] BMI 2022-09-11 14:22:00 43.75 kg/m2 [facility] Oxygen saturation in 2022-09-11 14:22:00 99 /min [facility] Arterial blood by [facility] Pulse oximetry Branch Systolic blood 2022-08-27 20:42:00 130 mm[Hg] Univer sity of pressure [facility] Diastolic blood 2022-08-27 20:42:00 80 mm[Hg] Unive rsity of pressure [facility] Heart rate 2022-08-27 20:42:00 93 /min [facility] Body temperature 2022-08-27 20:42:00 36.22 [facility] Respiratory rate 2022-08-27 20:42:00 16 /min [facility] Body height 2022-08-27 20:42:00 152.4 cm [facility] Body weight 2022-08-27 20:42:00 101.606 kg [facility] BMI 2022-08-27 20:42:00 43.75 kg/m2 [facility] Oxygen saturation in 2022-08-27 20:42:00 99 /min [facility]ial blood by [facility] Systolic blood 2022-08-27 15:26:00 120 mm[Hg] Univer sity of pressure [facility] Diastolic blood 2022-08-27 15:26:00 74 mm[Hg] Unive rsity of pressure [facility] Heart rate 2022-08-27 15:26:00 97 /min [facility] Body height 2022-08-27 15:26:00 152.4 cm [facility] Body weight 2022-08-27 15:26:00 101.606 kg [facility] BMI 2022-08-27 15:26:00 43.75 kg/m2 [facility] Oxygen saturation in 2022-08-27 15:26:00 98 /min [facility] Arterial blood by [facility] Pulse oximetry Branch Body height 2022-08-22 19:29:00 152.4 cm [facility] Body weight 2022-08-22 19:29:00 102.059 kg [facility] BMI 2022-08-22 19:29:00 43.94 kg/m2 [facility] Systolic blood 2022-07-30 20:04:00 131 mm[Hg] [facility] Diastolic blood 2022-07-30 20:04:00 77 mm[Hg] Unive rsity [facility] Heart rate 2022-07-30 20:04:00 92 /min [facility] Body temperature 2022-07-30 20:04:00 37.11 Nivia [facility] Body height 2022-07-30 20:04:00 152.4 cm [facility] Body weight 2022-07-30 20:04:00 102.059 kg [facility] BMI 2022-07-30 20:04:00 43.94 kg/m2 [facility] Oxygen saturation in 2022-07-30 20:04:00 99 /min [facility] Arterial blood by [facility]rent Pulse oximetry Branch Systolic blood 2022-07-26 21:20:00 136 mm[Hg] [facility] Diastolic blood 2022-07-26 21:20:00 72 mm[Hg] [facility]ive [facility] Heart rate 2022-07-26 21:20:00 110 /min [facility] Body temperature 2022-07-26 21:20:00 37.06 Nivia [facility] Respiratory rate 2022-07-26 21:20:00 19 /min [facility] Body height 2022-07-26 21:20:00 152.4 cm [facility] Body weight 2022-07-26 21:20:00 103.284 kg [facility] BMI 2022-07-26 21:20:00 44.47 kg/m2 [facility] Oxygen saturation in 2022-07-26 21:20:00 96 /min [facility] Arterial blood by [facility] Pulse oximetry Branch Systolic blood 2022-07-03 14:20:00 161 mm[Hg] [facility] Diastolic blood 2022-07-03 14:20:00 92 mm[Hg] [facility]ive [facility] Heart rate 2022-07-03 14:12:00 86 /min [facility] Body height 2022-07-03 14:12:00 152.4 cm [facility] Body weight 2022-07-03 14:12:00 102.967 kg [facility] BMI 2022-07-03 14:12:00 44.33 kg/m2 [facility] Oxygen saturation in 2022-07-03 14:12:00 97 /min [facility] P[facility]xim[facility] Systolic blood 2022-07-02 19:50:00 128 mm[Hg] [facility] Diastolic blood 2022-07-02 19:50:00 81 mm[Hg] [facility] Heart rate 2022-07-02 19:50:00 109 /min [facility] Body temperature 2022-07-02 19:50:00 36.72 Nivia [facility] Respiratory rate 2022-07-02 19:50:00 18 /min [facility] Body height 2022-07-02 19:50:00 152.4 cm [facility] Body weight 2022-07-02 19:50:00 103.057 kg [facility] BMI 2022-07-02 19:50:00 44.37 kg/m2 [facility] Oxygen saturation in 2022-07-02 19:50:00 98 /min [facility] Pulse oxim[facility] Systolic blood 2022-06-25 14:22:00 137 mm[Hg] [facility] Diastolic blood 2022-06-25 14:22:00 84 mm[Hg] [facility] Heart rate 2022-06-25 14:22:00 106 /min [facility] Body temperature 2022-06-25 14:22:00 37 Nivia [facility] Body height 2022-06-25 14:22:00 152.4 cm [facility] Body weight 2022-06-25 14:22:00 102.513 kg [facility] BMI 2022-06-25 14:22:00 44.14 kg/m2 [facility] Oxygen saturation in 2022-06-25 14:22:00 97 /min [facility] P[facility] oxim[facility] Systolic blood 2022-06-10 17:16:00 137 mm[Hg] [facility] Diastolic blood 2022-06-10 17:16:00 74 mm[Hg] Unive rsity of pressure [facility] Heart rate 2022-06-10 17:16:00 90 /min [facility] Body temperature 2022-06-10 17:16:00 37.11 Nivia [facility] Res[facility] rate 2022-06-10 17:16:00 18 /min [facility] Body height 2022-06-10 17:16:00 152.4 cm [facility] Body weight 2022-06-10 17:16:00 101.969 kg [facility] BMI 2022-06-10 17:16:00 43.90 kg/m2 [facility] Oxygen saturation in 2022-06-10 17:16:00 98 /min [facility] blood by [facility] Pulse oximetry Branch height 2020-07-15 09:10:00 62 [in_i] [facility] weight 2020-07-15 09:10:00 223.4 [lb_av] Common [facility] temperature 2020-07-15 09:10:00 97.2 [degF] Common [facility] bmi 2020-07-15 09:10:00 40.86 kg/m2 [facility] oximetry 2020-07-15 09:10:00 98 % [facility] respiratory rate 2020-07-15 09:10:00 17 /min Comm on [facility] blood pressure 2020-07-15 09:10:00 138 mm[Hg] Common [facility] - systolic [facility] blood pressure 2020-07-15 09:10:00 86 mm[Hg] Common [facility] - diastolic [facility] Procedures Procedure Date / Time Performing Clinician Source Performed CONSENT/REFUSAL FOR 2023-03-14 03:07:46 Doctor Carmen [facility] DIAGNOSIS AND TREATMENT [facility] REFERRAL- 2023-01-23 05:01:00 Doctor Carmen, [facility] REQUEST/RESPONSE [facility] INSURANCE CORRESPONDENCE 2023-01-04 05:01:00 Doctor Caremn, [facility] PATIENT QUESTIONNAIRE 2022-12-25 05:01:00 Doctor Unassrenée, [facility] Name Medical Dafter PAIN MANAGEMENT AGREEMENT 2022-12-11 05:01:00 Doctor Carmen, [facility] & INFORMED CONSENT [facility] h [facility] PATIENT FINANCIAL 2022-11-22 13:52:01 [facility] MENISCECTOMY 2022-11-05 22:00:00 Jyoti Demarco [facility] POCT GLUCOSE (AUTOMATED) 2022-11-05 18:52:00 Jyoti Demarco [facility] POCT GLUCOSE (AUTOMATED) 2022-11-05 18:52:00 Jyoti Demarco [facility] DAY SURGERY - ADC 2022-11-05 06:01:00 Doctor Carmen, [facility] Name Medical Dafter XR CHEST 2 VW 2022-11-02 14:30:04 Jyoti Demarco [facility] ASSIGNMENT OF BENEFITS 2022-11-02 14:08:49 Doctor Unassrenée, [facility] Name Medical Dafter EXTERNAL PROVIDER RECORDS 2022-10-29 06:01:00 Doctor Unassigned, [facility] Name Medical Dafter EXTERNAL PROVIDER RECORDS 2022-10-26 06:01:00 Doctor Unassigned, [facility] Name Medical Dafter EXTERNAL PROVIDER RECORDS 2022-10-24 06:01:00 Doctor Unassigned, [facility] Name Medical Branch EXTERNAL PROVIDER RECORDS 2022-10-24 06:01:00 Doctor Unassigned, [facility] Name Medical Branch EXTERNAL PROVIDER RECORDS 2022-10-23 06:01:00 Doctor Unassigned, [facility] Name [facility] RHEUMATOID FACTOR 2022-10-18 18:00:00 Jaspal Jones [facility] C-REACTIVE PROTEIN 2022-10-18 18:00:00 Jaspal Jones [facility] COMP. METABOLIC PANEL 2022-10-18 18:00:00 Jaspal Jones [facility] ([id number]) Medical Dafter CBC WITH DIFF 2022-10-18 18:00:00 Jaspal Jones [facility] HEPATITIS B SURFACE 2022-10-18 18:00:00 Jaspal Jones [facility] ANTIBODY [facility] HEPATITIS B SURFACE 2022-10-18 18:00:00 Jaspal Jones [facility] ANTIGEN [facility] HCV ANTIBODY 2022-10-18 18:00:00 Jaspal Jones [facility] HBC ANTIBODY (IGM & IGG) 2022-10-18 18:00:00 Jaspal Jones [facility] QUANTIFERON-TB ASSAY 2022-10-18 18:00:[address] [facility] QFT TB2 MINUS NIL 2022-10-18 18:00:00 Jaspal Jones [facility] MR KNEE RIGHT WO CONTRAST 2022-09-11 16:01:00 Mason Emery [facility] MEDICATION CORRESPONDENCE 2022-09-03 06:01:00 Doctor Unassigned, [facility] US FOREARM LEFT 2022-08-30 15:37:23 Rebecca [facility] XR FOREARM 2 VW LEFT 2022-08-28 15:20:43 Rebecca [facility] XR HAND 3+ VW LEFT 2022-08-28 15:20:43 Rebecca [facility] XR KNEE 3 VW RIGHT 2022-07-26 21:45:00 Dillon Rodriguez [facility] EMG/NCV 2022-07-11 17:38:00 Veronika Spivey [facility] POCT HEMOGLOBIN A1C TEST 2022-07-03 14:25:00 Julio Garsia [facility] CONSENT/REFUSAL FOR 2022-07-02 19:18:14 Doctor Unassigned, [facility] DIAGNOSIS AND TREATMENT [facility] POCT URINALYSIS 2022-06-10 17:21:00 Dorinda Em [facility] Plan of Care Planned Activity Planned Date Details Comments Source Encounters Start End Encounter Admission Attending Care Care Encounter Source Date/Time Date/Time Type Type Clinicians Facility Department ID 2021-10-[address] [facility] [id number] Common 11:44:14 Zhang [id number] [facility] 2021-10-18 [facility] [id number] Common 11:31:17 Zhang [id number] [facility] 2021-10-18 [facility] [id number] Common 11:21:46 Zhang [id number] [facility] 2021-10-18 [facility] [id number] Common 11:17:48 Zhang [id number] [facility] 2021-10-18 [facility] [id number] Common 11:13:57 Zhang [id number] [facility] 2021-08-29 Outpatient GOGIA, MHSE MHSE [id number] MH 14:03:24 [facility] 2023-07-02 2023-07-02 Outpatient June GARSIA [facility] [id number] Univers 12:00:00 12:00:00 JULIO [facility] 2023-04-29 2023-04-29 Outpatient R MELISSA ADAMARIS [facility] [id number] Univers 14:40:00 14:40:00 ADAMARIS TORRES [facility] 2023-04-08 2023-04-08 [facility] 1.2.840.114 [id number] Univers 00:00:00 00:00:00 [facility] 350.1.13.10 ity of [place] 4.2.7.2.686 [place] ERIN?BLEA [id number] [facility] [facility] OFFICE [facility] 2023-04-01 2023-04-01 Telephone [facility] 1.2.840.114 [id number] Univers 00:00:00 00:00:00 Jyoti L HEALTH 350.1.13.10 it y of [place] 4.2.7.2.686 [place] ERIN?BLEA [id number] [facility] [address] [facility] 2023-03-27 2023-03-27 Outpatient June SHANNON [facility] [id number] Univers 15:00:00 15:00:00 DEBBIE guerra [facility] 2023-03-27 2023-03-27 Telephone [facility] [id number] Univers 00:00:00 00:00:00 [facility] 350.1.13.10 it y [facility] 4.2.7.2.686 [place] ERIN?BLEA [id number] Me maria guadalupe [place] [address] [facility] OFFICE [facility] 2023-03-25 2023-03-25 Outpatient R [facility] [id number] Univers 10:30:00 10:30:00 itshelby [facility] 2023-03-16 2023-03-16 Refjusto [facility] 1.2.840.114 [id number] Univers 00:00:00 00:00:00 [facility] 350.1.13.10 it y of [place] 4.2.7.2.686 [place] ERIN?BLEA [id number] Dc maria guadalupe [address] [address] [facility] OFFICE [facility] 2023-03-15 2023-03-15 Refjusto [facility] 1.2.840.114 [id number] Univers 00:00:00 00:00:00 Martin HEALTH 350.1.13.10 ity of [place] 4.2.7.2.686 [place] ERIN?BLEA [id number] Dc maria guadalupe [place] [address] [facility] 2023-03-15 2023-03-15 Refill [facility] 1.2.840.114 [id number] Univers 00:00:00 00:00:00 [facility] 350.1.13.10 it y of [facility] 4.2.7.2.686 [place] ERIN?BLEA [id number] Dc maria guadalupe [address] [address] [facility] OFFICE [facility] 2023-03-13 2023-03-13 Emergency X [facility] ERT [id number] Univers 22:23:00 22:38:00 KAMARI guerra [facility] 2023-03-13 2023-03-13 Emergency [facility] [id number] Univers 22:23:00 22:38:00 Kamari PHILLIPS 350.1.13.10 i ty of [place].7.2.[place] [id number] [facility] 084 [address] 2023-03-13 2023-03-13 Outpatient R JIM [facility] [id number] Univers 15:15:00 16:25:[address] [facility] 2023-03-13 2023-03-13 Office [facility] 1.2.840.114 [id number] Univers 15:15:00 16:25:08 Visit Celia Pina [employer] 350.1.13.10 i ty of [facility] 4.2.7.2.686 [place] MATERNAL [id number] Med ical & CHILD 107 [facility] 2023-03-07 2023-03-07 Refjusto Dockery [facility] 1.2.840.114 [id number] Univers 00:00:00 00:00:00 Vishal HEALTH 350.1.13.10 it y of [place] 4.2.7.2.686 [place] ERIN?BLEA [id number] [facility] 0[address] [facility] OFFICE [facility] 2023-03-07 2023-03-07 Refill Ady [facility] 1.2.840.114 [id number] Univers 00:00:00 00:00:00 [facility] HEALTH 350.1.13.10 it y of [place] 4.2.7.2.686 [place] ERIN?BLEA [phone] Dc dicpeyton [address] [facility] OFFICE [facility] 2023-02-28 2023-02-28 Telephone [facility] [id number] Univers 00:00:00 00:00:00 Adamaris HEALTH 350.1.13.10 ity of [place] 4.2.7.2.686 [place] ERIN?BLEA [id number] [facility] OFFICE [facility] 2023-02-27 2023-02-27 Telephone [facility] [id number] Univers 00:00:00 00:00:00 Mason S HEALTH 350.1.13.10 it y of [place] 4.2.7.2.686 [place] ERIN?BLEA [id number] Dc maria guadalupe [address] [facility] OFFICE [facility] 2023-02-27 2023-02-27 Refill [facility] 1.2.840.114 [id number] Univers 00:00:00 00:00:00 Adamaris HEALTH 350.1.13.10 ity of [facility] 4.2.7.2.686 [place] ERIN?BLEA [id number] Dc maria guadalupe [address] [facility] OFFICE [facility] 2023-02-25 2023-02-25 [employer] Processing [employer] Manager Lab, Ang - [facility] 1.2.840.1 [id number] Univers 11:45:00 12:00:00 Visit Melissa [facility] 350.1.13.10 ity of [place] 4.2.7.2.686 [place] ERIN?BLEA [id number] Dc maria guadalupe [place] [address] [facility] 2023-02-25 2023-02-25 Outpatient R MELISSA ADAMARIS [facility] [id number] Univers 10:40:00 11:43:37 PATRICJOEL McqueenINE itshelby [facility] 2023-02-25 2023-02-25 Office [facility] 1.2.840.114 [id number] Univers 10:40:00 11:43:37 Visit [facility] 350.1.13.10 ity of [place] 4.2.7.2.686 [place] ERIN?BLEA [id number] Dc maria guadalupe [place] [address] [facility] 2023-02-22 2023-02-22 Outpatient R RUPERT [facility] [id number] Univers 08:55:00 23:59:00 MASON guerra [facility] 2023-02-22 2023-02-22 Office [facility] 1.2.840.114 [id number] Univers 08:45:00 09:37:48 Visit [facility] 350.1.13.10 it y of [facility] 4.2.7.2.686 [place] ERIN?BLEA [phone] Dc maria guadalupe [place] [address] [facility] OFFICE [facility] 2023-02-22 2023-02-22 Telephone [facility] 1.2.286.880 [id number] Univers 00:00:00 00:00:00 Adamaris HEALTH 350.1.13.10 ity of [place] 4.2.7.2.686 [place] ERIN?BLEA [id number] Dc dical ROSEEY 044 D[address] MEDICAL OFFICE BUILDING 2023-02-19 2023-02-19 Refill [facility] 1.2.840.114 [id number] Univers 00:00:00 00:00:00 [facility] HEALTH 350.1.13.10 it y of [place] 4.2.7.2.686 [place] ERIN?BLEA [id number] Me dicpeyton [address] MEDICAL OFFICE [facility] 2023-02-12 2023-02-12 Refjusto [facility] 1.2.840.114 [id number] Univers 00:00:00 00:00:00 [facility] 350.1.13.10 it y of [place] 4.2.7.2.686 [place] ERIN?BLEA [id number] Dc dicpeyton WO[place] [address] [facility] OFFICE [facility] 2023-02-11 2023-02-11 Refill [facility] 1.2.840.114 [id number] Univers 00:00:00 00:00:00 [facility] 350.1.13.10 it y of [place] 4.2.7.2.686 [place] ERIN?BLEA [id number] Dc dicpeyton [address] MEDICAL OFFICE [facility] 2023-02-11 2023-02-11 Refjusto [facility] 1.2.840.114 [id number] Univers 00:00:00 00:00:00 Martin HEALTH 350.1.13.10 ity of [place] 4.2.7.2.686 [place] ERIN?BLEA [id number] Dc dical CHUCK 044 [address] MEDICAL OFFICE [facility] 2023-02-11 2023-02-11 Telephone [facility] 1.2.724.393 [id number] Univers 00:00:00 00:00:00 [facility] HEALTH 350.1.13.10 it y of [place] 4.2.7.2.686 [place] ERIN?BLEA [phone] Dc dical CHUCK [address] MEDICAL OFFICE BUILDING 2023-02-08 2023-02-08 Outpatient R [facility] [id number] Univers 13:00:00 13:37:45 SHILA guerra [facility] 2023-02-08 2023-02-08 Office [facility] 1.2.840.114 [id number] Univers 13:00:00 13:37:45 Visit Shila Pina [facility] 350.1.13.10 i ty of [place] 4.2.7.2.686 [place] ERIN?BLEA [id number] [address] OFFICE [facility] 2023-02-08 2023-02-08 Outpatient R MELISSA ADAMARIS [facility] [id number] Univers 09:20:00 09:20:00 JOEL TORRESINE [facility] 2023-02-08 2023-02-08 Refjusto [facility] 1.2.840.114 [id number] Univers 00:00:00 00:00:00 Adamaris HEALTH 350.1.13.10 ity of [place] 4.2.7.2.686 [place] ERIN?BLEA [id number] [address] OFFICE [facility] 2023-02-05 2023-02-05 Refill [facility] 1.2.840.114 [id number] Univers 00:00:00 00:00:00 Adamaris HEALTH 350.1.13.10 ity of [place] 4.2.7.2.686 [place] ERIN?BLEA [id number] [address] OFFICE [facility] 2023-02-01 2023-02-01 Outpatient R [facility] [id number] Univers 11:00:00 11:33:46 ARIANNA guerra [facility] 2023-02-01 2023-02-01 Office Jaspal Jones [facility] 1.2.840.1 14 [id number] Univers 11:00:00 11:33:46 Visit Ayden Arianna Geena PRIMARY 350.1.13. 10 ity of [facility] 4.2.7.2.[place] [id number] [address] 2023-01-31 2023-01-31 Telephone [facility] 1.2.947.718 [id number] Univers 00:00:00 00:00:00 Wentong HEALTH 350.1.13.10 it y of [place] 4.2.7.2.686 [place] ERIN?BLEA [id number] [facility] [address] MEDICAL OFFICE BUILDING 2023-01-31 2023-01-31 Telephone [facility] 1.2.332.567 [id number] Univers 00:00:00 00:00:00 Wentong MULTISPEC 350.1.13.10 [place] of [place].7.2.[place] CENTER [id number] [facility] AND [place] [address] 2023-01-24 2023-01-24 Telephone [facility] 1.2.352.240 [id number] Univers 00:00:00 00:00:00 Adamaris HEALTH 350.1.13.10 ity of [facility] 4.2.7.2.686 [place] ERIN?BLEA [id number] [address] MEDICAL OFFICE [facility] 2023-01-23 2023-01-23 Orders Doctor ALBERTO 1.2.840.114 [id number] Univers 00:00:00 00:00:00 Only Unassigned, BRITTANY 350.1.13.10 ity of [place] [facility] 4.2.7.2.686 [place] [id number] [facility] [address] 2023-01-22 2023-01-22 [facility] 1.2.840.114 [id number] Univers 00:00:00 00:00:00 Adamaris HEALTH 350.1.13.10 ity of [facility] 4.2.7.2.686 [place] ERIN?BLEA [id number] [address] MEDICAL OFFICE BUILDING 2023-01-16 2023-01-16 Refjusto [facility] 1.2.840.114 [id number] Univers 00:00:00 00:00:00 Adamaris HEALTH 350.1.13.10 ity of [place] 4.2.7.2.686 [place] ERIN?BLEA [id number] [facility] [address] MEDICAL OFFICE BUILDING 2023-01-15 2023-01-15 Refjusto Emery [facility] 1.2.840.114 [id number] Univers 00:00:00 00:00:00 Mason S HEALTH 350.1.13.10 it y of [place] 4.2.7.2.686 [place] ERIN?BLEA [id number] Me dical CHUCK [address] [facility] OFFICE [facility] 2023-01-08 2023-01-08 Meat Processing [employer] Manager Lab, Ang - Db [facility] 1.2.840.1 14 [id number] Univers 15:00:00 15:20:37 [facility] 350.1.13.10 ity of [place] 4.2.7.2.686 [place] ERIN?BLEA [id number] Me dical CHUCK [address] [facility] 2023-01-08 2023-01-08 Office [facility] 1.2.840.114 [id number] Univers 14:20:00 15:00:00 Visit [facility] 350.1.13.10 ity of [place] 4.2.7.2.686 [place] ERIN?BLEA [phone] Me dicpeyton WOODS [address] [facility] 2023-01-08 2023-01-08 Outpatient R ADAMARIS TORRES [facility] [id number] Univers 14:20:00 14:20:00 PATRICShelby ADAMARIS [facility] 2023-01-04 2023-01-04 Orders Doctor ALBERTO 1..840.114 [id number] Univers 00:00:00 00:00:00 Only Unassigned, BRITTANY 350.1.13.10 ity of [place] [facility] 4.2.7.2.686 [place] [id number] [address] 2023-01-02 2023-01-02 Telephone Ady [facility] 1.2.776.187 [id number] Univers 00:00:00 00:00:00 [facility] HEALTH 350.1.13.10 it y of [place] 4.2.7.2.686 [place] ERIN?BLEA [id number] Me dical CHUCK [address] MEDICAL OFFICE [facility] 2022-12-26 2022-12-26 Outpatient R [facility] [id number] Univers 14:30:00 15:37:[address] [place] [address] [facility] 2022-12-26 2022-12-26 [facility] [id number] Univers 14:30:00 15:37:09 Visit [facility] [id number] it y of [place] [id number] [place] ERIN?BLEA [id number] Dc maria guadalupe WOODS 198 Dafter MEDICAL OFFICE [facility] 2022-12-26 2022-12-26 [facility]phone [facility] [id number] Univers 00:00:00 00:00:00 [facility] Ecor[employer]aturaSì [id number] it y of [place] [id number] [place] as ERIN?BLEA [phone] Dc maria guadalupe WOODS 220 Dominican [facility] OFFICE [facility] 2022-12-25 2022-12-25 Meat Processing Center Manager Lab, Ang - [facility] 1..840.1 14 [id number] Univers 10:15:00 10:30:00 Visit Ady [facility] 350.1.13.10 ity of [place] 4.2.7.2.686 [place] ERIN?BLEA [phone] Dc maria guadalupe WOODS [facility] OFFICE [facility] 2022-12-25 2022-12-25 Outpatient [facility] [id number] Univers 09:00:00 09:30:34 [facility] 2022-12-25 2022-12-25 Office [facility] 1.2.840.114 [id number] Univers 09:00:00 09:30:34 Visit [facility] 350.1.13.10 it y of [place] 4.2.7.2.686 [place] ERIN?BLEA [id number] Dc maria guadalupe WOODS [facility] OFFICE [facility] 2022-12-25 2022-12-25 Orders Doctor DOMINGUEZ 1.2.840.114 [id number] Univers 00:00:00 00:00:00 Only Unassigned, BRITTANY 350.1.13.10 ity [place] [facility] 4.2.7.2.686 [place] as [id number] [address] 2022-12-17 2022-12-17 Telephone Rupert [facility] 1.2.228.632 [id number] [id number] Univers 00:00:00 00:00:00 Mason S HEALTH 350.1.13.10 it y [facility] 4.2.7.2.686 [place] ERIN?BLEA [id number] Dc maria guadalupe WOODS [address] MEDICAL OFFICE [facility] 2022-12-16 2022-12-16 Refill Ady [facility] 1.2.840.114 [id number] Univers 00:00:00 00:00:00 [facility] 350.1.13.10 it y of [place] 4.2.7.2.686 [place] ERIN?BLEA [phone] Dc maria guadalupe [facility] OFFICE [facility] 2022-12-11 2022-12-11 Outpatient R ADAMARIS TORRES [facility] [id number] Univers 14:00:00 14:43:00 ADAMARIS TORRES [facility] 2022-12-11 2022-12-11 Office [facility] 1.2.840.114 [id number] Univers 14:00:00 14:43:00 Visit [facility] 350.1.13.10 ity of [place] 4.2.7.2.686 [place] ERIN?BLEA [id number] Dc maria guadalupe ROSE 0[facility] OFFICE [facility] 2022-12-11 2022-12-11 Orders Doctor DOMINGUEZ 1.2.840.114 [id number] Univers 00:00:00 00:00:00 Only Unassigned, BRITTANY 350.1.13.10 ity of [place] [facility] 4.2.7.2.686 [place] as [id number] [address] 2022-12-07 2022-12-07 Telephone Ady [facility] 1.2.091.257 [id number] Univers 00:00:00 00:00:00 [facility] 350.1.13.10 it y [facility] 4.2.7.2.686 [place] ERIN?BLEA [phone] Dc maria guadalupe WOODS [address] MEDICAL OFFICE [facility] 2022-12-06 2022-12-06 Office Nilam [facility] 1.2.233.530 [id number] Univers 11:00:00 11:00:00 Visit [facility] 350.1.13.10 it y of [place] 4.2.7.2.686 [place] ERIN?BLEA [phone] Dc maria guadalupe WOODS 198 [address] MEDICAL OFFICE [facility] 2022-12-06 2022-12-06 Outpatient R NILAM [facility] [id number] Univers 11:00:00 09:31:59 JYOTI [facility] 2022-12-03 2022-12-03 [facility] 1.2.840.114 [id number] Univers 00:00:00 00:00:00 [facility] 350.1.13.10 it y of [place] 4.2.7.2.686 [place] ERIN?BLEA [id number] Dc maria guadalupe WOODS [address] MEDICAL OFFICE [facility] 2022-11-26 2022-11-26 Refjusto [facility] 1.2.840.114 [id number] Univers 00:00:00 00:00:00 [facility] 350.1.13.10 it y [facility] 4.2.7.2.686 [place] ERIN?BLEA [id number] Dc maria guadalupe WOODS [address] [facility] OFFICE [facility] 2022-11-22 2022-11-22 Office [facility] 1.2.840.114 [id number] Univers 08:30:00 08:45:00 Visit [facility] 350.1.13.10 it y of [place] 4.2.7.2.686 [place] ERIN?BLEA [id number] Dc maria guadalupe WOODS 198 [address] MEDICAL OFFICE [facility] 2022-11-22 2022-11-22 Outpatient R [facility] [id number] Univers 08:30:00 08:30:00 MASON shelby [facility] 2022-11-22 2022-11-22 Orders Doctor DOMINGUEZ 1.2.840.114 [id number] Univers 00:00:00 00:00:00 Only Unassigned, BRITTANY 350.1.13.10 [place] [facility] 4.2.7.2.686 [place] as [id number] [address] 2022-11-19 2022-11-19 Outpatient R NILAM [facility] [id number] Univers 10:15:00 10:15:00 JYOTI guerra [facility] 2022-11-12 2022-11-12 Outpatient R EMERY [facility] [id number] Univers 14:45:00 14:45:00 MASON charlie [facility] 2022-11-12 2022-11-12 Telephone [facility] 1.2.369.607 [id number] Univers 00:00:00 00:00:00 AdamarisBebestore 350.1.13.10 ity of [place] 4.2.7.2.686 [place] ERIN?BLEA [id number] Dc maria guadalupe WOODS 044 [facility] OFFICE [facility] 2022-11-07 2022-11-07 Telephone [facility] 1.2.840.114 10 [id number] Univers 00:00:00 00:00:00 [facility] HEALTH 350.1.13.10 it y of [place] 4.2.7.2.686 [place] ERIN?BLEA [phone] Dc maria guadalupe WOODS 198 [facility] OFFICE [facility] 2022-11-06 2022-11-06 Telephone [facility] 1.2.840.114 10 [id number] Univers 00:00:00 00:00:00 Jyoti L HEALTH 350.1.13.10 it y of [place] 4.2.7.2.686 [place] ERIN?BLEA [phone] Dc maria guadalupe WOODS [address] [facility] 2022-11-06 2022-11-06 Telephone [facility] 1.2.840.114 10 [id number] Univers 00:00:00 00:00:00 Jyoti L HEALTH 350.1.13.10 it y of [place] 4.2.7.2.686 [place] ERIN?BLEA [id number] Dc maria guadalupe WOODS [address] [place] [address] 2022-11-05 2022-11-05 Outpatient [facility] SOR [id number] Univers 12:39:00 18:56:00 JYOTI guerra [facility] 2022-11-05 2022-11-05 [facility] 1.2.840.114 100 [id number] Univers 12:39:00 18:56:00 Encounter Jyoti Sudha PHILLIPS 350.1.13.10 ity of [place]ICAL [id number] [facility] [address] 2022-11-05 2022-11-05 Surgery [facility] 1.2.085.192 [id number] Univers 14:15:00 15:46:00 Jyoti Sudha PHILLIPS 350.1.13.10 i ty of [place].2.7.2.[place]ICAL [id number] [facility] [address] 2022-11-05 2022-11-05 Orders Doctor ALBERTO 1.2.840.114 [id number] Univers 00:00:00 00:00:00 Only Unassigned, BRITTANY 350.1.13.10 ity of [place] [facility] 4.2.7.2.686 [place] as [id number] [facility] [address] 2022-11-02 2022-11-02 [facility] 1.2.840.114 100 [id number] Univers 08:12:07 23:59:00 Encounter Jyoti Sudha PHILLIPS 350.1.13.10 it[place] of [place].2.7.2.686 [place] C[place]US [id number] [facility] [address] 2022-11-02 2022-11-02 Meat Processing Center Manager Patricia, [facility] Lab Main [facility] 1.2.8 40.114 [id number] Univers 08:15:00 08:30:00 Visit Jyoti Demarco 350.1.13.10 ity of [place].2.7.2.[place] [id number] Dc dical NAL [address] [facility] 2022-11-02 2022-11-02 Outpatient R [facility] [id number] Univers 08:11:31 08:11:[address] of [facility] 2022-11-02 2022-11-02 Orders Doctor DOMINGUEZ 1.2.840.114 [id number] Univers 00:00:00 00:00:00 Only Unassigned, BRITTANY 350.1.13.10 [place] [facility] 4.2.7.2.686 [place] [id number] [address] 2022-11-02 2022-11-02 Cr Garsia [facility] 1.2.840.114 [id number] Univers 00:00:00 00:00:00 [facility] 350.1.13.10 it y of [place] 4.2.7.2.686 [place] ERIN?BLEA [id number] [facility] [address] MEDICAL OFFICE BUILDING 2022-10-30 2022-10-30 Outpatient [facility] [id number] Univers 08:00:00 08:54:58 [place] ity [facility] 2022-10-30 2022-10-[address] [facility] 1.2.840.114 [id number] Univers 08:00:00 08:54:58 Visit [facility] 350.1.13.10 ity of [place] 4.2.7.2.686 [place] ERIN?BLEA [id number] [facility] 0[address] [facility] OFFICE [facility] 2022-10-29 2022-10-29 Outpatient R KLEY, [facility] [id number] Univers 10:40:00 10:40:00 ADAMARIS ity [facility] 2022-10-29 2022-10-29 Orders Doctor DOMINGUEZ 1.2.840.114 [id number] Univers 00:00:00 00:00:00 Only Unassigned, BRITTANY 350.1.13.10 it[place] [facility] 4.2.7.2.686 [place] as [id number] [address] 2022-10-26 2022-10-26 Orders Doctor DOMINGUEZ 1.2.840.114 [id number] Univers 00:00:00 00:00:00 Only Unassigned, BRITTANY 350.1.13.10 [place] [facility] 4.2.7.2.686 [place] [id number] [address] 2022-10-25 2022-10-25 Telephone [facility] 1.2.840.114 10 [id number] Univers 00:00:00 00:00:00 [facility] 350.1.13.10 it y of [place] 4.2.7.2.686 [place] ERIN?BLEA [phone] Dc maria guadalupe WOODS 198 [address] MEDICAL OFFICE [facility] 2022-10-25 2022-10-25 Telephone [facility] 1.2.417.155 [id number] [id number] Univers 00:00:00 00:00:00 [facility] 350.1.13.10 ity [facility] 4.2.7.2.686 [place] ERIN?BLEA [id number] Dc maria guadalupe WOODS 044 D[address] MEDICAL OFFICE [facility] 2022-10-24 2022-10-24 Refill [facility] 1.2.840.114 [id number] Univers 00:00:00 00:00:00 [facility] 350.1.13.10 ity [facility] 4.2.7.2.686 [place] ERIN?BLEA [id number] Dc maria guadalupe WOODS 044 [facility] OFFICE [facility] 2022-10-23 2022-10-23 Prep For Nilam [facility] 1.2.840.114 100 [id number] Univers 00:00:00 00:00:00 Surgery [facility] 350.1.13.10 it y of [facility] 4.2.7.2.686 [place] ERIN?BLEA 413.1739607 Dc maria guadalupe WOODS 198 [facility] OFFICE [facility] 2022-10-23 2022-10-23 Orders Doctor ALBERTO 1.2.840.114 [id number] Univers 00:00:00 00:00:00 Only Unassigned, BRITTANY 350.1.13.10 [place] [facility] 4.2.7.2.686 [place] [phone] [facility] brent 009 Dafter 2022-10-18 2022-10-18 Meat Processing Center Manager Pcp-Lab [facility] 1.2.840.114 100 [id number] Univers 12:15:00 12:30:00 Visit Arianna Hensley PRIMARY 350.1.13. 10 ity of [place].2.[place] TOR[place] [id number] Dc dical [address] 2022-10-18 2022-10-18 Outpatient R AYDEN [facility] [id number] Univers 11:30:00 11:53:37 ARIANNA itshelby [facility] 2022-10-18 2022-10-18 Office Jaspal Jones [facility] 1.2.840.1 14 [id number] Univers 11:30:00 11:53:37 Visit Arianna Hensley PRIMARY 350.1.13. 10 ity of [place] 4.2.[place].2.[place]AV[place] 271.2008241 Dc dical 086 Dafter 2022-10-17 2022-10-17 Office [facility] 1.2.840.114 [id number] Univers 15:45:00 16:00:00 Visit [facility] 350.1.13.10 it y of [place] 4.2.7.2.686 [place] ERIN?BLEA [id number] [facility] ROSE 198 [facility] OFFICE [facility] 2022-10-17 2022-10-17 Outpatient June EMERY [facility] [id number] Univers 15:45:00 15:45:00 [facility] 2022-10-05 2022-10-05 Refill Ady [facility] 1.2.840.114 [id number] Univers 00:00:00 00:00:00 [facility] HEALTH 350.1.13.10 it y of [place] 4.2.7.2.686 [place] ERIN?BLEA [id number] Dc maria guadalupe WOODS [address] [facility] 2022-10-01 2022-10-01 Telephone Nilam [facility] 1.2.840.114 [id number] Univers 00:00:00 00:00:00 [facility] HEALTH 350.1.13.10 it y of [place] 4.2.7.2.686 [place] ERIN?BLEA [id number] Dc maria guadalupe WOODS [address] [facility] 2022-09-20 2022-09-20 Outpatient June [facility] [id number] Univers 13:23:54 23:59:00 [facility] 2022-09-20 2022-09-20 Office [facility] 1.2.840.114 [id number] Univers 13:15:00 13:31:01 Visit [facility] HEALTH 350.1.13.10 it y of [place] 4.2.7.2.686 [place] ERIN?BLEA 320.0007625 Dc maria guadalupe WOODS 198 [address] MEDICAL OFFICE [facility] 2022-09-14 2022-09-14 Refill [facility] 1.2.840.114 [id number] Univers 00:00:00 00:00:00 [facility] HEALTH 350.1.13.10 it y of [place] 4.2.7.2.686 [place] ERIN?BLEA [id number] Dc maria guadalupe WOODS 220 [address] MEDICAL OFFICE [facility] 2022-09-11 2022-09-11 Outpatient R RUPERT [facility] [id number] Univers 07:20:49 23:59:[address] of [facility] 2022-09-11 2022-09-11 Hospital [facility] 1.2.840.114 [id number] Univers 07:20:49 23:59:00 Encounter Mason S SPECIALTY 350.1.13.10 ity of [place] CENTER AT [id number] Dc maria guadalupe FUENTES 804 [facility] 2022-09-10 2022-09-10 Outpatient R [facility] [id number] Univers 13:45:00 13:45:00 DUARTE ity [facility] 2022-09-03 2022-09-03 Orders Doctor ALBERTO 1.2.840.114 [id number] Univers 00:00:00 00:00:00 Only Unassigned, BRITTANY 350.1.13.10 [place] [facility] 4.2.7.2.686 [place] [id number] [address] 2022-08-31 2022-08-31 Telephone [facility] 1.2.788.972 [id number] [id number] Univers 00:00:00 00:00:00 [facility] HEALTH 350.1.13.10 it y of [place] 4.2.7.2.686 [place] ERIN?BLEA 657.4847661 Dc maria guadalupe WOODS 220 [address] MEDICAL OFFICE [facility] 2022-08-30 2022-08-30 Outpatient R [facility] [id number] Univers 09:06:41 23:59:00 DUARTE macy [facility] 2022-08-30 2022-08-30 [facility] 1.2.889.400 [id number] Univers 09:06:41 23:59:00 Encounter Duarte Carrillo SPECIALTY 350.1.13.10 it[place] AT [id number] Dc maria guadalupe [address] 2022-08-30 2022-08-30 [facility] 1.2.697.579 [id number] Univers 09:00:00 09:05:00 Encounter Duarte B SPECIALTY 350.1.13.10 it[place] of [place] C[place] AT [id number] Dc maria guadalupe [address] 2022-08-28 2022-08-28 Outpatient [facility] [id number] Univers 09:03:18 23:59:00 DUARTE guerra [facility] 2022-08-28 2022-08-28 [facility] 1.2.250.655 [id number] Univers 09:00:00 23:59:00 Encounter Duarte PHILLIPS 350.1.13.10 ity of [place] [id number] [address] 2022-08-27 2022-08-27 Outpatient [facility] [id number] Univers 14:45:00 15:06:39 DUARTE guerra [facility] 2022-08-27 2022-08-27 Office [facility] 1.2.840.114 [id number] Univers 14:45:00 15:06:39 Visit Duarte PHILLIPS 350.1.13.10 ity of [facility] 4.2.7.2.[address] [facility] [id number] Dc maria guadalupe [facility] 201 [facility] 2022-08-27 2022-08-[address] [facility] 1.2.840.114 [id number] Univers 09:40:00 10:16:06 Visit [facility] 350.1.13.10 ity of [place] 4.2.7.2.686 [place] ERIN?BLEA [id number] Me dical KNEY 044 [facility] OFFICE [facility] 2022-08-22 2022-08-22 Outpatient R RUPERT [facility] [id number] Univers 13:30:00 13:54:06 MASON shelby [facility] 2022-08-22 2022-08-22 Office [facility] 1.2.840.114 [id number] Univers 13:30:00 13:54:06 Visit [facility] 350.1.13.10 it y of [place] 4.2.7.2.686 [place] ERIN?BLEA [id number] Me dical KNEY 198 [facility] OFFICE [facility] 2022-08-13 2022-08-13 Outpatient R KENAN [facility] [id number] Univers 13:45:00 13:45:00 DUARTE shelby [facility] 2022-08-06 2022-08-06 Refill [facility] 1.2.840.114 [id number] Univers 00:00:00 00:00:00 [facility] 350.1.13.10 it y of [place] 4.2.7.2.686 [place] ERIN?BLEA [id number] Me dical KNEY 220 [facility] OFFICE [facility] 2022-07-30 2022-07-30 Outpatient R [facility] [id number] Univers 14:00:00 14:39:04 [facility] 2022-07-30 2022-07-30 Office [facility] 1.2.840.114 [id number] Univers 14:00:00 14:39:04 Visit [facility] 350.1.13.10 ity of [place] 4.2.7.2.686 [place] ERIN?BLEA [id number] Me dical KNEY 044 [facility] OFFICE [facility] 2022-07-30 2022-07-30 Telephone [facility] 1.2.969.145 [id number] Univers 00:00:00 00:00:00 [facility] 350.1.13.10 it y [facility] 4.2.7.2.686 [place] ERIN?BLEA [id number] Me dical KNEY 220 [address] MEDICAL OFFICE BUILDING 2022-07-26 2022-07-26 Outpatient R [facility] [id number] Univers 16:34:43 23:59:00 DILLON ity [facility] 2022-07-26 2022-07-26 [facility] 1.2.840.114 [id number] Univers 16:34:43 23:59:00 Encounter Dillon B HEALTH 350.1.13.10 ity of [place] 4.2.7.2.686 [place] ERIN?BLEA [id number] Me dical CHUCK 808 [facility] OFFICE [facility] 2022-07-26 2022-07-26 Urgent Michael Dillon [facility] 1.2.840.1 14 [id number] Univers 16:00:00 16:57:20 Care Unknown, Attending HEALTH 350.1.13.10 ity of [place] 4.2.7.2.686 [place] ERIN?BLEA [id number] Dc dicpeyton WOODS 370 [facility] OFFICE [facility] 2022-07-11 2022-07-11 Outpatient R [facility] [id number] Univers 11:57:45 23:59:00 CHILVANA ity o f [facility] 2022-07-11 2022-07-11 [facility] 1.2.840.114 [id number] Univers 11:57:45 23:59:00 Encounter [facility] HEALTH 350.1.13.10 it[place] of [place].2.[place] [id number] [address] OFFICE BUILDING 2022-07-09 2022-07-[address] [facility] 1.2.270.914 [id number] Univers 00:00:00 00:00:00 Adamaris HEALTH 350.1.13.10 ity of [place] 4.2.7.2.686 [place] ERIN?BLEA [id number] Dc dical CHUCK 044 [facility] OFFICE BUILDING 2022-07-03 2022-07-03 Outpatient R ADY [facility] [id number] Univers 09:30:00 09:48:[address] [facility] 2022-07-03 2022-07-[address] [facility] 1.2.840.114 [id number] Univers 09:30:00 09:48:08 Visit [facility] 350.1.13.10 it y of [place] 4.2.7.2.686 [place] ERIN?BLEA [id number] Dc dical ROSEEY 220 [facility] OFFICE [facility] 2022-07-03 2022-07-03 Outpatient R [facility] [id number] Univers 09:30:00 09:30:00 [facility] 2022-07-03 2022-07-03 Outpatient R [facility] [id number] Univers 09:30:00 09:30:00 [facility] 2022-07-02 2022-07-02 Outpatient R [facility] [id number] Univers 14:30:00 15:27:25 DUARTE [facility] 2022-07-02 2022-07-02 Office [facility] 1.2.840.114 [id number] Univers 14:30:00 15:27:25 Visit Duarte Carrillo [place] 350.1.13.10 ity of [place] 4.2.7.2.[place] [id number] Dc dical SERJIO 201 [facility] 2022-07-02 2022-07-02 Orders Doctor DOMINGUEZ 1.2.840.114 [id number] Univers 00:00:00 00:00:00 Only Unassigned, BRITTANY 350.1.13.10 ity of [place] [facility] 4.2.7.2.686 [place] as [id number] [address] 2022-06-26 2022-06-26 [facility] 1.2.961.336 [id number] Univers 00:00:00 00:00:00 [facility] 350.1.13.10 ity of [place] 4.2.7.2.686 [place] as ERIN?BLEA [id number] Dc dical ROSEEY 044 [facility] OFFICE [facility] 2022-06-25 2022-06-25 [facility] [id number] Univers 09:20:00 10:02:20 ADAMARIS ity [facility] 2022-06-25 2022-06-[address] [facility] 1.2.840.114 [id number] Univers 09:20:00 10:02:20 Visit [facility] 350.1.13.10 ity [facility] 4.2.7.2.686 [place] ERIN?BLEA [id number] [address] OFFICE [facility] 2022-06-25 2022-06-25 Outpatient R [facility] [id number] [facility] 09:20:00 09:20:00 [facility] 2022-06-18 2022-06-[address] [facility] [id number] Univers 00:00:00 00:00:00 [facility] 350.1.13.10 ity of [place] 4.2.7.2.686 [place] ERIN?BLEA [id number] [address] OFFICE [facility] 2022-06-10 2022-06-10 Outpatient R [facility] [id number] Univers 12:20:00 12:41:34 [facility] 2022-06-10 2022-06-10 Urgent [facility] [id number] Univers 12:20:00 12:41:34 Critical access hospital 350.1.13.10 it y of [place] 4.2.7.2.686 [place] ERIN?BLEA [phone] [facility] [address] MEDICAL OFFICE [facility] 2022-06-08 2022-06-[address] [facility] 1.2.840.114 [id number] Univers 00:00:00 00:00:00 [facility] 350.1.13.10 ity of [place] 4.2.7.2.686 [place] ERIN?BLEA [id number] [address] MEDICAL OFFICE [facility] 2022-06-08 2022-06-[address] [facility] [id number] Univers 00:00:00 00:00:00 [facility] 350.1.13.10 ity of [place] 4.2.7.2.686 [place] ERIN?BLEA [id number] [address] MEDICAL OFFICE BUILDING 2022-06-08 2022-06-08 Refjusto Torres [facility] 1.2.840.114 [id number] Univers 00:00:00 00:00:00 [facility]ALTH 350.1.13.10 ity of [place] 4.2.7.2.686 [place] ERIN?BLEA [id number] [address] MEDICAL OFFICE BUILDING 2022-06-07 2022-06-07 Outpatient R [facility] [id number] Univers 08:40:00 08:40:00 [place] ity [facility] 2022-06-04 2022-06-04 Telephone Nurse, Edwin [facility] 1.2.840.114 [id number] Univers 00:00:00 00:00:00 Endo/Diab HEALTH 350.1.13.10 ity of [place] 4.2.7.2.686 [place] ERIN?BLEA [id number] [address] MEDICAL OFFICE BUILDING 2022-06-03 2022-06-03 [facility] 1.2.840.114 [id number] Univers 00:00:00 00:00:00 [facility] HEALTH 350.1.13.10 it y of [place] 4.2.7.2.686 [place] ERIN?BLEA [id number] [address] MEDICAL OFFICE BUILDING 2022-05-28 2022-05-28 Cr Garsia [facility] 1.2.840.114 [id number] Univers 00:00:00 00:00:00 [place] HEALTH 350.1.13.10 it y of [place] 4.2.7.2.686 [place] ERIN?BLEA [id number] [address] MEDICAL OFFICE BUILDING 2022-05-24 2022-05-24 [facility] 1.2.840.114 [id number] Univers 14:20:00 15:37:26 Visit Martin HEALTH 350.1.13.10 ity of [place] 4.2.7.2.686 [place] ERIN?BLEA [id number] [facility] [address] [facility] OFFICE [facility] 2022-05-24 2022-05-24 Outpatient June [facility] [id number] [facility] 14:20:00 15:37:26 [facility] 2022-05-24 2022-05-24 Outpatient [facility] [id number] [facility] 14:20:00 14:20:00 [facility] 2022-05-16 2022-05-16 [facility] 1.2.840.114 [id number] Univers 00:00:00 00:00:00 [facility] 350.13.10 it y of [place] 4.2.7.2.686 [place] ERIN?BLEA [id number] [address] 2022-05-15 2022-05-15 Outpatient MHIE MHIE [id number] Memoria 08:00:00 08:00:00 15 sudha Shultz 2022-05-15 2022-05-15 Outpatient MHIE IE [id number] Memoria 08:00:00 08:00:00 15 sudha Shultz 2022-05-05 2022-05-05 [facility] 1.2.840.114 [id number] Univers 00:00:00 00:00:00 [facility] 350.13.10 it y of [place] 4.2.7.2.686 [place] ERIN?BLEA [id number] [facility] 220 [facility] OFFICE [facility] 2022-04-20 2022-04-20 Outpatient STUART SE MHSE [id number] MH 10:05:00 23:59:00 ELEANOR [facility] 2022-04-20 2022-04-20 Telephone [facility] 1.2.446.889 [id number] Univers 00:00:00 00:00:00 [facility] 350..13.10 it y of [facility] 4.2.7.2.686 [place] ERIN?BLEA [id number] [address] OFFICE [facility] 2022-04-19 2022-04-19 Outpatient MHIE MHIE [id number] Memoria 15:00:00 15:00:00 14 sudha Shultz 2022-04-19 2022-04-19 Outpatient MHIE MHIE [id number] Memoria 15:00:00 15:00:00 14 sudha GrossCarrington 2022-03-13 2022-03-13 [facility] 1.2.840.114 [id number] Univers 00:00:00 00:00:00 [facility] 350.1.13.10 it y of [place] 4.2.7.2.686 [place] ERIN?BLEA [id number] [address] OFFICE [facility] 2022-02-28 2022-02-28 [facility] [id number] Univers 09:30:00 10:00:50 [facility] 2022-02-28 2022-02-28 Office [facility] 1.2.840.114 [id number] Univers 09:30:00 10:00:50 Visit [facility] 350.1.13.10 it y of [place] 4.2.7.2.686 [place] ERIN?BLEA [id number] [address] OFFICE [facility] 2022-02-28 2022-02-28 Outpatient R [facility]Y [facility] [id number] Univers 09:30:00 09:30:00 [facility] 2022-02-22 2022-02-22 Outpatient MHIE MHIE [id number] Memoria 15:30:00 15:30:00 13 sudha Shultz 2022-02-22 2022-02-22 Outpatient MHIE MHIE [id number] Memoria 15:30:00 15:30:00 13 sudha Shultz 2022-02-20 2022-02-20 [facility] 1.2.864.231 [id number] Univers 15:03:55 23:59:00 Encounter Renny TORO 350.1.13.10 ity [facility] [place]2.[place] [id number] Dc jessepeyton FUENTES 809 [facility] 2022-02-20 2022-02-20 Outpatient R [facility] [id number] Univers 15:03:55 23:59:00 RENNY guerra [facility] 2022-02-20 2022-02-20 Outpatient June [facility] [id number] Univers 15:03:22 23:59:00 RENNY guerra [facility] 2022-02-20 2022-02-20 [facility] 1.2.215.947 [id number] Univers 15:03:22 23:59:00 Encounter Renny SPECIALTY 350.1.13.10 ity of [place] [facility].2.[place] [id number] Dc jessepeyton FUENTES 809 [facility] 2022-02-20 2022-02-20 Office [facility] 1.2.840.114 [id number] Univers 16:10:00 16:10:00 Visit Renny SPECIALTY 350.1.13.10 ity of [place].2.[place].2.[place] [id number] Dc jessepeyton FUENTES 198 [facility] 2022-02-20 2022-02-20 Office [facility] 1.2.840.114 [id number] Univers 16:10:00 16:10:00 Visit Renny SPECIALTY 350.1.13.10 ity of [place] 4.2.[place].2.[place] [id number] Dc maria guadalupe FUENTES 198 [facility] 2022-02-20 2022-02-20 Outpatient R [facility] [id number] Univers 16:10:00 15:54:05 RENNY guerra [facility] 2022-02-17 2022-02-17 Cr Garsia [facility] 1.2.840.114 [id number] Univers 00:00:00 00:00:00 [facility] 350.1.13.10 it y of [facility] 4.2.7.2.686 [place] ERIN?BLEA [phone] Dc maria guadalupe WO[facility]S [address] MEDICAL OFFICE BUILDING 2022-01-04 2022-01-04 Outpatient MHIE IE [id number] Memoria 10:15:00 10:15:00 11 sudha GrossCarrington 2022-01-04 2022-01-04 Outpatient MHIE IE [id number] Memoria 10:15:00 10:15:00 11 sudha GrossTaylor 2021-12-12 2021-12-12 Refill Ady, [facility] 1.2.840.114 [id number] Univers 00:00:00 00:00:00 [facility] 350.1.13.10 it y of [facility] 4.2.7.2.686 [place] ERIN?BLEA [id number] Dc dical KNEY [address] [facility] 2021-12-07 2021-12-07 Refill Ady, [facility] 1.2.840.114 [id number] Univers 00:00:00 00:00:00 Julio [place] 350.1.13.10 i ty of [facility] 4.2.7.2.[place] [phone] Dc dical NAL 220 [facility] 2021-12-07 2021-12-07 Refill Frederick, [facility] 1.2.840.114 [id number] Univers 00:00:00 00:00:00 Wil PHILLIPS 350.1.13.10 i ty of [place] 4.2.7.2.[place] [phone] Dc dical NAL 044 [facility] 2021-12-06 2021-12-06 Outpatient MHIE IE [id number] Memoria 16:00:00 16:00:00 12 [facility] 2021-12-06 2021-12-06 Outpatient MHIE IE [id number] Memoria 16:00:00 16:00:00 12 [facility] 2021-11-28 2021-11-28 Refjusto Garsia, [facility] 1.2.840.114 [id number] Univers 00:00:00 00:00:00 Julio [place] 350.1.13.10 i ty of [place] 4.2.7.2.[place] [id number] Dc dical NAL 220 [facility] 2021-11-24 2021-11-24 Outpatient MHIE STIVENIE [id number] Memoria 08:00:00 08:00:00 10 sudha Carrington 2021-11-24 2021-11-24 Outpatient MHIE MHIE [id number] Memoria 08:00:00 08:00:00 10 sudha Carrington 2021-11-02 2021-11-02 [employer] Manager Lab, Ang - Db [facility] 1.2.840.1 14 [id number] Univers 09:00:00 09:15:00 Visit Ady [facility] 350.1.13.10 ity [facility] 4.2.7.2.686 [place] ERIN?BLEA [phone] Dc jesse[address] 2021-11-02 2021-11-02 Outpatient R ADY [facility] [id number] Univers 09:00:00 09:00:00 [facility] 2021-11-01 2021-11-01 [facility] [id number] Univers 12:00:00 12:43:33 [facility] 2021-10-04 2021-10-04 [facility]ill [facility] 1.2.840.114 [id number] Univers 00:00:00 00:00:00 [facility] 350.1.13.10 i ty of [place] 4.2.7.2.[place] [phone] [facility] 220 [facility] 2021-09-03 2021-09-03 Refill [facility] 1.2.840.114 [id number] Univers 00:00:00 00:00:00 [facility] 350.1.13.10 i ty of [place] 4.2.[place].2.[place] [id number] [address] 2021-08-22 2021-08-22 Outpatient MHIE STIVENIE [id number] Memoria 13:00:00 13:00:00 09 sudha Carrington 2021-08-22 2021-08-22 Outpatient MHIE TR [id number] Memoria 13:00:00 13:00:00 09 sudha Carrington 2021-08-17 2021-08-17 Refill Ady [facility] 1.2.840.114 [id number] Univers 00:00:00 00:00:00 Julio PHILLIPS 350.1.13.10 i ty of [place] 4.2.7.2.[place] [phone] Dc dical [facility] [address] BU[address] 2021-07-07 2021-07-07 Telephone Ady [facility] 1.2.788.289 [id number] Univers 00:00:00 00:00:00 [facility] MULTISPEC 350.1.13.10 ity of [facility] 4.2.7.2.686 [place] [id number] [facility] [place] [address] [facility] 2021-07-07 2021-07-07 Orders Doctor ALBERTO 1.2.840.114 [id number] Univers 00:00:00 00:00:00 Only Unassigned, BRITTANY 350.1.13.10 ity of [place] [facility] 4.2.7.2.686 [place] [id number] [facility] [address] 2021-07-03 2021-07-03 Outpatient MHIE MHIE [id number] Memoria 15:00:00 15:00:00 08 sudha Shultz 2021-07-03 2021-07-03 Outpatient MHIE MHIE [id number] Memoria 15:00:00 15:00:00 08 sudha Shultz 2021-06-30 2021-06-30 Outpatient MHIE MHIE [id number] Memoria 10:15:00 10:15:00 06 sudha Shultz 2021-06-30 2021-06-30 Outpatient MHIE MHIE [id number] Memoria 10:15:00 10:15:00 06 sudha Shultz 2021-06-27 2021-06-27 Outpatient R ADY [facility] [id number] Univers 16:00:00 16:29:08 [facility] ity of [facility] 2021-06-27 2021-06-27 Office [facility] 1.2.840.114 [id number] Univers 15:38:59 16:29:08 Visit [facility] 350.1.13.10 it y of [facility] 4.2.7.2.686 [place] ERIN?BLEA [id number] [facility] [address] MEDICAL OFFICE [facility] 2021-06-27 2021-06-27 Outpatient R [facility]Y [facility] [id number] Univers 16:00:00 16:00:00 W[place] ity of [facility] 2021-06-27 2021-06-27 Orders Doctor ALBERTO 1.2.840.114 [id number] Univers 00:00:00 00:00:00 Only Unassigned, BRITTANY 350.1.13.10 [facility] 4.2.7.2.686 [place] [phone] [facility] [address] 2021-06-21 2021-06-21 Outpatient MHIE MHIE [id number] Memoria 16:00:00 16:00:00 07 sudha Taylor 2021-06-21 2021-06-21 Outpatient MHIE MHIE [id number] Memoria 16:00:00 16:00:00 07 sudha Taylor 2021-06-13 2021-06-13 Telephone Estefania Torrez 1.2.840.114 [id number] Univers 00:00:00 00:00:00 , Orin Burgos 350.1.13.10 ity of [place] 4.2.7.2.[place] [id number] [facility] [address] 2021-06-05 2021-06-05 Refjusto [facility] 1.2.840.114 [id number] Univers 00:00:00 00:00:00 Wil Phillips 350.1.13.10 i ty of [place].2.[place].2.[place] [phone] Dc dical nal 044 [facility] 2021-06-02 2021-06-02 Refill Ady [facility] 1.2.840.114 [id number] Univers 00:00:00 00:00:00 Julio Phillips 350.1.13.10 i ty of [place] 4.2.7.2.[place] [phone] Dc dical nal 044 [facility] 2021-05-30 2021-05-30 Refill Frederick NDDARIA 1.2.840.114 [id number] Univers 00:00:00 00:00:00 Wil Phillips 350.1.13.10 i ty of [place] 4.2.7.2.[place] [phone] Dc dical nal 044 [facility] 2021-05-17 2021-05-17 Refill Ady, NDMB 1.2.840.114 [id number] Univers 00:00:00 00:00:00 Julio Phillips 350.1.13.10 i ty of [place] 4.2.7.2.[place] [phone] Dc dical nal 220 [facility] 2021-04-27 2021-04-27 Orders Doctor ALBERTO 1.2.840.114 [id number] Univers 00:00:00 00:00:00 Only Unassigned, BRITTANY 350.1.13.10 ity of [place] [facility] 4.2.7.2.686 [place] [phone] [address] 2021-04-17 2021-04-17 Refill Ady, NDMB 1.2.840.114 [id number] Univers 00:00:00 00:00:00 Julio Phillips 350.1.13.10 i ty of [place] 4.2.7.2.[place] [phone] Dc dical nal 220 [facility] 2021-04-06 2021-04-06 Refill Ady, [facility] 1.2.840.114 [id number] Univers 00:00:00 00:00:00 Julio Phillips 350.1.13.10 i ty of [place] 4.2.7.2.[place] [phone] Dc dical nal 220 [facility] 2021-04-04 2021-04-04 Outpatient YONY-WILL [facility] 119 [id number] MH 12:23:00 23:59:00 IS, [facility] 2021-04-01 2021-04-01 Refill Ady, NDMB 1.2.840.114 [id number] Univers 00:00:00 00:00:00 Julio Phillips 350.1.13.10 i ty of [place] 4.2.7.2.[place] [phone] [address] 2021 2021 Outpatient MHIE MHIE [id number] Memoria 10:15:00 10:15:00 05 [facility] 2021 2021 Outpatient MHIE MHIE [id number] Memoria 10:15:00 10:15:00 05 [facility] 2021-02-21 2021-02-21 Office [facility] 1.2.840.114 [id number] Univers 10:02:15 10:57:53 Visit Julio [place] 350.1.13.10 i ty of [place] 4.2.7.2.[place] [phone] [address] 2021-02-21 2021-02-21 Outpatient R ADY [facility] [id number] Univers 10:30:00 10:30:00 [facility] 2021-02-15 2021-02-15 Refill [facility] 1.2.840.114 [id number] Univers 00:00:00 00:00:00 Ellismaranda Monroe 350.1.13.10 i ty of [place] 4.2.7.2.[place] [phone] [address] 2021-01-02 2021-01-02 Outpatient MHIE MHIE [id number] Memoria 10:00:00 10:00:00 04 [facility] 2021-01-02 2021-01-02 Outpatient MHIE MHIE [id number] Memoria 10:00:00 10:00:00 04 sudha Shultz 2020-12-05 2020-12-05 Outpatient MHIE MHIE [id number] Memoria 10:00:00 10:00:00 02 sudha Shultz 2020-12-05 2020-12-05 Outpatient MHIE MHIE [id number] Memoria 10:00:00 10:00:00 02 Carrington 2020-12-03 2020-12-03 Patient Duncan [facility] 1.2.840.114 [id number] Univers 00:00:00 00:00:00 Outreach Dylan PRIMARY 350.1.13.10 i ty of [facility] 4.2.7.2.[place] [phone] Dc dical [address] 2020-12-03 2020-12-03 Patient Duncan, [facility] 1.2.840.114 [id number] 00:00:00 00:00:00 Outreach Dylan PRIMARY 350.1.13.10 Yong CARE 4.2.7.2.686 PAVILLION [phone] [facility] 2020-12-02 2020-12-02 Refill [facility] 1.2.840.114 [id number] Univers 00:00:00 00:00:00 Keara Phillips 350.1.13.10 ity of [place] 4[place]2.7.2.[place] [phone] Dc dic[address] 2020-12-02 2020-12-02 Refill [facility] 1.2.840.114 [id number] 00:00:00 00:00:00 Keara Phillips 350.1.13.10 [place] 4.2.7.2.686 Professio [phone] [address] 2020-11-23 2020-11-23 Telephone Garsia, [facility] 1.2.817.862 [id number] Univers 00:00:00 00:00:00 Julio Phillips 350.1.13.10 i ty of [place] 4.2.7.2.[place] [phone] [facility] 220 [facility] 2020-11-23 2020-11-23 Telephone Garsia, [facility] 1.2.944.101 [id number] 00:00:00 00:00:00 Julio Phillips 350.1.13.10 [place] 4.2.7.2.686 Professio [phone] on license of [facility] 220 [facility] 2020-11-21 2020-11-21 Refill [facility] 1.2.840.114 [id number] Univers 00:00:00 00:00:00 Julio Phillips 350.1.13.10 i ty of [place] 4[place]2.[place].2.[place] [id number] [facility] 220 [facility] 2020-11-21 2020-11-21 Refill Ady [facility] 1.2.840.114 [id number] 00:00:00 00:00:00 Julio Phillips 350.1.13.10 [place] 4.2.7.2.686 Professio [phone] [address] 2020-10-25 2020-10-25 Outpatient MHIE MHIE [id number] Memoria 08:00:00 08:00:00 03 sudha Shultz 2020-10-25 2020-10-25 Outpatient MHIE MHIE [id number] Memoria 08:00:00 08:00:00 03 sudha Taylor 2020-10-19 2020-10-19 [employer] Manager 2, Adc Lab [facility] 1.2.840.114 [id number] Univers 09:59:30 10:14:30 Visit Julio Garsia 350.1.13.10 ity of [place] 4.2.7.2.[place] [phone] [facility] 353 [facility] 2020-10-19 2020-10-19 Office [facility] 1.2.840.114 [id number] Univers 08:53:55 09:47:38 Visit Julio Nietoton 350.1.13.10 i ty of [place] 4.2.7.2.[place] [phone] [facility] 220 [facility] 2020-10-19 2020-10-19 Office [facility] 1.2.840.114 [id number] 08:53:55 09:47:38 Visit Julio Phillips 350.1.13.10 [place] 4.2.7.2.686 Professio [phone] [address] 2020-10-19 2020-10-19 Outpatient R [facility]Y [facility] [id number] Univers 09:00:00 09:00:00 WENTONG ity [facility] 2020-10-19 2020-10-[address] [facility] 1.2.840.114 [id number] Univers 00:00:00 00:00:00 Julio [place] 350.1.13.10 i ty of [place] 4[place]2.7.2.[place] [phone] [address] 2020-10-04 2020-10-[address] [facility] 1.2.840.114 [id number] Univers 00:00:00 00:00:00 Julio [place] 350.1.13.10 i ty of [place] 4.2.7.2.[place] [phone] [address] 2020-09-06 2020-09-06 Outpatient MHIE MHIE [id number] Memoria 15:30:00 15:30:00 01 l Taylor 2020-09-06 2020-09-06 Outpatient MHIE MHIE [id number] Memoria 15:30:00 15:30:00 01 l Carrington 2020-08-30 2020-08-30 Telephone [facility] 1.2.339.876 [id number] Univers 00:00:00 00:00:00 Julio [place] 350.1.13.10 i ty of [place].2.[place] [phone] [address] 2020-08-22 2020-08-22 Outpatient YONY-WILL [facility] [id number] MH 06:17:00 23:59:[address] [facility] 2020-08-03 2020-08-03 Outpatient MHIE MHIE [id number] Memoria 14:30:00 14:30:00 00 l Carrington 2020-08-03 2020-08-03 Outpatient MHIE MHIE [id number] Memoria 14:30:00 14:30:00 00 l Taylor 2020-07-15 2020-07-15 Outpatient June [facility] [id number] Univers 15:30:00 15:30:[address] of [facility] 2020-07-15 2020-07-[address] [facility] [id number] Co mmon 00:00:00 00:00:00 VISIT Spirit ESTAB PT - CHI LEVEL 4 [facility] 2020-07-05 2020-07-05 Orders Doctor ALBERTO 1.2.840.114 [id number] Univers 00:00:00 00:00:00 Only Unassigned, BRITTANY 350.1.13.10 ity of [place] [facility] 4.2.7.2.686 [place] [phone] [address] 2020-07-04 2020-07-[address] [facility] 1.2.643.049 [id number] Univers 00:00:00 00:00:00 Wentong [place] 350.1.13.10 [place] ty [place] 4[place]2.[place].2.[place] [phone] [address] 2020-07-01 2020-07-[address] [facility] 1.2.840.114 [id number] Univers 00:00:00 00:00:00 Wentong Monroe 350.1.13.10 i ty of [place] 4.2.7.2.[place] [phone] [address] 2020-06-30 2020-06-[address] [facility] 1.2.840.114 [id number] Univers 00:00:00 00:00:00 Wentong Monroe 350.1.13.10 [place] ty of [place] 4[place]2.7.2.[place] [phone] [address] 2020-06-28 2020-06-28 Out[facility] [id number] Univers 08:00:00 08:00:[address] of [facility] 2020-06-27 2020-06-27 Telephone [facility] 1.2.301.597 [id number] Univers 00:00:00 00:00:00 Wentong [place] 350.1.13.10 [place] of [place] 4[place]2.7.2.[place] [phone] [address] 2020-06-22 2020-06-22 Office [facility] 1.2.840.114 [id number] Univers 08:14:33 09:02:04 Visit Julio Phillips 350.1.13.10 [place] of [place] 4.2.7.2.[place] [phone] Dc dical nal 220 [facility] 2020-06-22 2020-06-22 Outpatient R ADY [facility] [id number] Univers 08:00:00 08:00:00 JULIO ity [facility] 2020-06-14 2020-06-14 Refill [facility] 1.2.840.114 [id number] Univers 00:00:00 00:00:00 Keara Phillips 350.1.13.10 [place] of [place] [phone] [facility] nal 231 [facility] 2020-06-07 2020-06-07 Out[facility] [id number] Common 14:00:00 14:00:00 t ZUGGI [facility] 2020-05-31 2020-05-31 Refjusto [facility] 1.2.840.114 [id number] Univers 00:00:00 00:00:00 Julio Phillips 350.1.13.10 [place] ty [place] 4[place].2.[place] [phone] Dc dicky nal 220 [facility] 2020-05-03 2020-05-03 Telephone [facility] 1.2.368.550 [id number] Univers 00:00:00 00:00:00 Julio Phillips 350.1.13.10 i ty of [place] 4[place].2.[place] [phone] Dc dical nal 220 [facility] 2020-04-27 2020-04-27 Telephone [facility] 1.2.520.490 [id number] Univers 00:00:00 00:00:00 Julio Phillips 350.1.13.10 i ty of [place] 4.2.[place].2.[place] [phone] [facility] nal 220 [facility] 2020-04-27 2020-04-27 Orders Doctor DOMINGUEZ 1.2.840.114 [id number] Univers 00:00:00 00:00:00 Only Unassigned, BRITTANY 350.1.13.10 ity of [place] [facility] 4.2.7.2.686 [place] [phone] [address] 2020-04-26 2020-04-26 Refill Garsia, [facility] 1.2.840.114 [id number] Univers 00:00:00 00:00:00 Wentong Monroe 350.1.13.10 i ty of [place].2.[place] [phone] [address] 2020-04-20 2020-04-20 Telephone Garsia, [facility] 1.2.290.519 [id number] Univers 00:00:00 00:00:00 Wentong Monroe 350.1.13.10 [place] ty [place].2.[place] [phone] [address] 2020-04-19 2020-04-19 Refill Garsia, [facility] 1.2.840.114 [id number] Univers 00:00:00 00:00:00 Wentong Monroe 350.1.13.10 [place] of [place] 4[place].2.[place] [phone] [address] 2020-04-14 2020-04-14 Telephone Garsia, [facility] 1.2.615.851 [id number] Univers 00:00:00 00:00:00 [place]ong [place] 350.1.13.10 i [place] 4[place]2.7.2.[place] [phone] [address] 2020-04-06 2020-04-06 Telephone Garsia, [facility] [id number] Univers 00:00:00 00:00:00 [place]ong [place] 350.1.13.10 i [place] 4[place]7.2.[place] [id number] [address] 2020-04-05 2020-04-05 [facility] [id number] Common 10:30:00 10:30:[address] [facility] 2020-02-24 2020-02-24 [facility] 1.2.840.114 [id number] Univers 11:30:32 12:28:11 Visit Julio Phillips 350.1.13.10 [place]2.[place] [phone] Dc dical on license of [facility] 220 [facility] 2020-02-24 2020-02-24 Outpatient R ADY [facility] [id number] Univers 11:30:00 11:30:00 [facility] 2020-02-24 2020-02-24 Orders Doctor ALBERTO 1.2.840.114 [id number] Univers 00:00:00 00:00:00 Only Unassigned, BRITTANY 350.1.13.10 ity of [place] [facility] 4.2.7.2.686 [place] [phone] [facility] [address] 2020-02-16 2020-02-16 Outpatient R BALDEV [facility] [id number] Univers 11:00:00 11:00:00 RADAMES [facility] 2020-02-04 2020-02-04 [facility] 30 [id number] Common 13:15:00 13:15:[address] [facility] 2020-01-28 2020-01-28 Telephone Allen XIOMARA 1.2.840.114 [id number] Univers 00:00:00 00:00:00 Sara Y [facility] 350.1.13.10 i ty [place] [phone] [facility] [address] 2020-01-27 2020-01-27 Outpatient R BALDEV [facility] [id number] Univers 10:40:00 10:40:00 RADAMES [facility] 2020-01-26 2020-01-26 [facility]ici [facility] 1.2.840.114 [id number] Univers 16:16:58 16:36:58 ne Visit Radames BANKS 350.1.13.10 ity of [place] 4[place]7.2.[place] [phone] Dc dicky [address] 2020-01-20 2020-01-20 Outpatient June GRAYALBERTO, [facility] [id number] Univers 10:40:00 10:40:[address] [facility] 2020-01-19 2020-01-19 [facility]ici [facility] 1.2.840.114 [id number] Univers 10:52:03 11:32:03 ne Visit Radames Cole JOCELYN 350.1.13.10 ity of [facility] 4.2.7.2.686 [place] [phone] [address] 2020-01-08 2020-01-08 [facility] [id number] Common 15:31:00 15:31:[address] [facility] 2020-01-07 2020-01-07 [facility] [id number] Common 10:15:00 10:15:[address] [facility] 2020-01-06 2020-01-06 Out[facility] [id number] Common 07:20:00 07:20:[address] [facility] 2019-12-28 2019-12-28 [facility] 1.2.840.114 [id number] Univers 00:00:00 00:00:00 Keara Phillips 350.1.13.10 [place] [phone] Dc dical nal 231 [facility] 2019-12-24 2019-12-24 Telephone [facility] [id number] Univers 00:00:00 00:00:00 Julio Phillips 350.1.13.10 i [place] [phone] Dc dical nal 220 [facility] 2019-12-23 2019-12-23 Telephone [facility] 1.2.486.331 [id number] Univers 00:00:00 00:00:00 Wentong Monroe 350.1.13.10 [place] [phone] Dc dical nal [address] [place] [address] 2019-12-22 2019-12-22 Telephone Garsia, [facility] [id number] Univers 00:00:00 00:00:00 Wentong [place] 350.1.13.10 [place] [phone] Dc dical nal [address] [place] [address] 2019-12-22 2019-12-22 Orders Doctor ALBERTO 1.2.840.114 [id number] Univers 00:00:00 00:00:00 Only Unassigned, BRITTANY 350.1.13.10 [facility] 4.2.7.2.686 [place] [phone] [address] 2019-12-21 2019-12-21 Telephone Garsia, [facility] 1.2.459.758 [id number] Univers 00:00:00 00:00:00 Wentong [place] 350.1.13.10 [place] [phone] [facility] nal [address] [place] [address] 2019-12-08 2019-12-08 Outpatient [facility] [id number] Common 10:00:00 10:00:00 ZUGGI [facility] it [facility] 2019-11-26 2019-11-26 Orders Doctor ALBERTO 1.2.840.114 [id number] Univers 00:00:00 00:00:00 Only Unassigned, BRITTANY 350.1.13.10 [facility] 4.2.7.2.686 [place] [phone] [address] 2019-11-23 2019-11-23 Telephone Garsia, [facility] 1.2.355.610 [id number] Univers 00:00:00 00:00:00 Wentong [place] 350.1.13.10 [place] [phone] Dc dical nal [address] [place] [address] 2019-11-19 2019-11-19 Cr [facility] 1.2.840.114 [id number] Univers 00:00:00 00:00:00 Heaven Phillips 350.1.13.10 i ty [place] [phone] [address] 2019-11-18 2019-11-18 Office [facility] 1.2.840.114 [id number] Univers 08:57:57 09:37:22 Visit Julio Phillips 350.1.13.10 i [place] [phone] [address] 2019-11-18 2019-11-18 Outpatient [facility] [id number] Univers 09:00:00 09:00:00 ELLISONG ity [facility] 2019-11-18 2019-11-18 Orders Doctor ALBERTO 1.2.840.114 [id number] Univers 00:00:00 00:00:00 Only Unassigned, BRITTANY 350.1.13.10 [facility] 4.2.7.2.686 [place] [phone] [address] 2019-10-26 2019-10-26 Orders Doctor ALBERTO 1.2.840.114 [id number] Univers 00:00:00 00:00:00 Only Unassigned, BRITTANY 350.1.13.10 [facility] 4.2.7.2.686 [place] [phone] [address] 2019-10-22 2019-10-22 Telephone [facility] 1.2.485.084 [id number] Univers 00:00:00 00:00:00 Julio Phillips 350.1.13.10 [place] [phone] [address] 2019-10-17 2019-10-17 Refill [facility] 1.2.840.114 [id number] Univers 00:00:00 00:00:00 Julio Phillips 350.1.13.10 [place] [phone] Dc dical on license of [facility] 220 [facility] 2019-06-05 2019-06-05 Orders Doctor ALBERTO 1.2.840.114 [id number] Univers 00:00:00 00:00:00 Only Unassigned, BRITTANY 350.1.13.10 [facility] 4.2.7.2.686 [place] [phone] [address] 2019-06-04 2019-06-04 Office [facility] Resident UNIVERSIT 1.2.8 40.114 [id number] Univers 12:57:10 16:50:05 Visit Selma Peterson Y HEALTH 350.1.13. 10 ity [place] [phone] [address] 2019-05-15 2019-05-15 Telephone [facility] 1.2.840.114 [id number] Univers 00:00:00 00:00:00 Dedra Balbuena [employer]AD 350.1.13.10 it y of REGIONAL 4.2.7.2.686 [place] MATERNAL [phone] Med ical & CHILD [address] [place] [address] 2019-05-15 2019-05-15 Telephone XIOMARA [place] 1.2.840.114 [id number] Univers 00:00:00 00:00:00 [facility] HEALTH 350.1.13.10 i ty [place] [phone] [address] 2019-05-12 2019-05-12 Office [facility] 1.2.704.428 [id number] Univers 13:17:20 14:04:02 Visit Dedra Balbuena INSIDE SALES LEAD 350.1.13.10 it y of REGIONAL 4.2.7.2.686 [place] MATERNAL [phone] Med ical & CHILD [address] [place] [address] 2019-05-12 2019-05-12 Orders Doctor ALBERTO 1.2.840.114 [id number] Univers 00:00:00 00:00:00 Only Unassigned, BRITTANY 350.1.13.10 [facility] [place] [facility] 4.2.7.2.686 [place] [phone] [address] 2019-04-27 2019-04-27 Telephone [facility] 1.2.306.312 [id number] Univers 00:00:00 00:00:00 Julio Phillips 350.1.13.10 [place] [phone] Dc dical nal 220 [facility] 2019-04-03 2019-04-03 Telephone [facility] 1.2.250.480 [id number] Univers 00:00:00 00:00:00 Julio Phillips 350.1.13.10 [place] [phone] [facility] 220 [facility] Results Test Description Test Time Test Comments Results Result Comments Source POCT GLUCOSE (AUTOMATED) 2022-11-05 18:56:09 Test Item Value Reference Range Interpretation Comme nts POCT GLU (test code = 2449760281) 175 mg/dL 70-110 H Lab Interpretation (test code = 63378-6) [facility]normal [facility]2022-11-05 18:56:09 Test Item Value Reference Range Interpretation Comments POCT GLU (test code = 9150906571) 175 mg/dL 70-110 H Lab Interpretation (test code = Abnormal 00080-5) [facility]-TB [id number] 19:10:33 Test Item Value Reference Range Interpretation Comments Extra Tube (test code = Received in Lab [id number]) [facility] [id number] 19:10:33 Nil<0.000IU/mL10/20/2022 1:10 PM [facility] SERVICESUnN[facility]doc[facility] CenterQUANTIFERON TB ASSAY [id number] 19:10:33 Test Item Value Reference Range Interpretation Comments Mitogen minus Nil 10.000 IU/mL (test code = 86332-5) QFT Gold Plus Negative Negative Result (test code = 81059-6) MARY ANN (test code = The QuantiFERON? TB Gold MARY ANN) Plus (in Tube) assay is intended for use as an aid in diagnosis of TB infection. A qualitative result (i.e., Negative, Positive, or Indeterminate) is based on interpretation of the four values, Nil, TB1 minus Nil, TB2 minus Nil, and Mitogen minus Nil. ?The Nil value represents nonspecific reactivity produced by the patient specimen. ?The TB1 minus Nil value indicates the interferon-gamma response of CD4+ T lymphocytes, specifically stimulated by the TB1 antigens. ?The TB2 minus Nil value indicates interferon-gamma response of both CD4+ and CD8+ T lymphocytes, stimulated by TB2 antigens. ?The Mitogen minus Nil value serves as the positive control, demonstrating the successful responsiveness of the T lymphocytes in patient specimen. A negative result suggests that M. tuberculosis infection is unlikely. ?However, in patients with high suspicion of exposure, a negative test should be repeated on a new sample. A positive result indicates an interferon-gamma response to M. tuberculosis antigens, suggesting infection with M. tuberculosis. Positive results in patients at low-risk for tuberculosis should be interpreted with caution and repeat testing on a new sample is advised. ?If repeat testing is positive, treatment may be indicated. ?Consult Infectious Disease Services for further recommendations. False positive results may occur in patients with prior infection with M. marinum, M. szulgai, or M. kansasii. For an indeterminate result, the likelihood of determining infection with M. tuberculosis cannot be determined. ?If clinically indicated, repeat testing on a new sample is advised. For further information, refer to http://www.cdc.gov/mmwr/pd f/rr/vs8485.pdf and https://doi.org/10.1093/ci d/zwn941. [facility] TB1 MINUS [id number] 19:10:33 Test Item Value Reference Range Interpretation Comments TB1 minus Nil (test code = 41733-3) 0.000 IU/mL [facility] TB2 MINUS [id number] 19:10:33 Test Item Value Reference Range Interpretation Comments TB2 minus Nil (test code = 6776013934) 0.000 IU/mL [facility] [id number] 17:19:52 Test Item Value Reference Range Interpretation Comments RF (test code = See_Comment [Automated message] 7598864330) The system Nv[employer] generated this result transmitted ref erence range: <20 IU/m L. The reference range was not used to int erpret this result as normal/abnormal . Lab Interpretation (test Normal code = 18753-8) [facility] HospitalRHEUM[facility]OID [id number] 17:19:52 Test Item Value Reference Range Interpretation Comments RF (test code = See_Comment [Automated message] 1298579248) The system Nvigen generated this result transmitted ref erence range: <20 IU/m L. The reference range was not used to int erpret this result as normal/abnormal . Lab Interpretation (test Normal code = 05188-5) [facility]-REACTIVE [id number] 17:17:58 Test Item Value Reference Range Interpretation Comments CRP (test code = 1.4 mg/dL See_Comment H [Automated message] 6809647031) The system Nv[employer] generated this result transmit elle reference range : <=0.8. The refe rence range was not u sed to interpret th is result as normal/abnormal . Lab Interpretation (test Abnormal code = 86254-7) [facility]-REACTIVE [id number] 17:17:58 Test Item Value Reference Range Interpretation Comments CRP (test code = 1.4 mg/dL See_Comment H [Automated message] 7274508990) The system Nv[employer] generated this result transmit elle reference range : <=0.8. The refe rence range was not u sed to interpret th is result as normal/abnormal . Lab Interpretation (test Abnormal code = 91669-5) [facility] ANTIBODY (IGM & IGG)2022-10-19 03:59:53 Test Item Value Reference Range Interpretation Comments HBC (test code = 3230297431) Reactive HBC Semi-Quantitative (test code = 1093978993) [facility] ANTIBODY (IGM & IGG)2022-10-19 03:59:53 Test Item Value Reference Range Interpretation Comments HBC (test code = 3353575817) Reactive HBC Semi-Quantitative (test code = 0.21 2739078989) [facility] HospitalHCV [id number] 03:40:33 Test Item Value Reference Range Interpretation Comments HCV Ab (test code = 22691-0) Negative HCV Semi-Quantitative (test code = 43895-8) [facility]AT[facility] SURFACE [id number] 03:40:33 Test Item Value Reference Range Interpretation Comments HBsAB (test code = Positive 9564420087) HBsAb mIU/mL Semi-Quantitative (test code = 0170413980) MARY ANN (test code = Interpretation: MARY ANN) ?Hepatitis B Surface Antibody ? Negative - Patient is considered to be not immune to infection with HBV. ? ? Positive - Anti-HBs detected at greater than or equal to 12 mIU/mL. ?Patient is considered to be immune to infection with HBV. ? [facility] HospitalHCV [id number] 03:40:33 Test Item Value Reference Range Interpretation Comments HCV Ab (test code = 64229-9) Negative HCV Semi-Quantitative (test code = 0.02 63235-9) [facility] SURFACE [id number] 03:40:33 Test Item Value Reference Range Interpretation Comments HBsAB (test code = Positive 6679221657) HBsAb mIU/mL Semi-Quantitative (test code = 8920031628) MARY ANN (test code = Interpretation: MARY ANN) ?Hepatitis B Surface Antibody ? Negative - Patient is considered to be not immune to infection with HBV. ? ? Positive - Anti-HBs detected at greater than or equal to 12 mIU/mL. ?Patient is considered to be immune to infection with HBV. ? [facility]AT[facility]IS [facility] SURFACE [id number] 03:22:10 Test Item Value Reference Range Interpretation Comments HBsAg Semi-Quantitative (test code = Negative Negative 5195-3) [facility]FACE [id number] 03:22:10 Test Item Value Reference Range Interpretation Comments HBsAg Semi-Quantitative (test code = 0.07 Negative 5195-3) [facility]COM. METABOLIC PANEL ([id number])2022-10-19 01:15:18 Test Item Value Reference Range Interpretation Comments NA (test code = 139 mmol/L 135-145 8408156364) K (test code = 4.7 mmol/L 3.5-5.0 7597601959) CL (test code = 103 mmol/L 98-108 1965642483) CO2 TOTAL (test code = 26 mmol/L 23-31 0858933125) AGAP (test code = 2-16 3230706480) BUN (test code = 12 mg/dL 7-23 8170873605) GLUCOSE (test code = 252 mg/dL 70-110 H 7152841149) CREATININE (test code = 0.72 mg/dL 0.50-1.04 6439728890) TOTAL BILI (test code = 0.2 mg/dL 0.1-1.0 7558491593) CALCIUM (test code = 9.6 mg/dL 8.6-10.6 3793521293) T PROTEIN (test code = 8.5 g/dL 6.3-8.2 H 7636144333) ALBUMIN (test code = 4.5 g/dL 3.5-5.0 4538896728) ALK PHOS (test code = 51 U/L 34-122 1393103458) ALTv (test code = 18 U/L 5-35 2-6) AST(SGOT) (test code = 17 U/L 13-40 6968054601) eGFR (test code = mL/min/1.73m2 7392646598) MARY ANN (test code = MARY ANN) Association of Glomerular Filtration Rate (GFR) and Staging of Kidney Disease* + --+ --+ ------+| GFR (mL/min/1.73 m2) ?| With Kidney Damage ?| ?Without Kidney Damage+ --------+ --------+ +| ?>90 ?| ?Stage one ?| ? Normal ?+ ---+ ---+ -------+| ?60-89 ?| ?Stage two ?| ? Decreased GFR ? + --+ --+ ------+| ?30-59 ?| ?Stage three ?| ? Stage three ? + --+ --+ ------+| ?15-29 ?| ?Stage four ? | ? Stage four ?+ ---+ ---+ -------+| ?<15 (or dialysis) ? ?| ?Stage five ? | ? Stage five ?+ ---+ ---+ -------+ *Each stage assumes the associated GFR level has been in effect for at least three months. ?Stages 1 to 5, with or without kidney disease, indicate chronic kidney disease. Notes: Determination of stages one and two (with eGFR >59mL/min/1.73 m2) requires estimation of kidney damage for at least three months as defined by structural or functional abnormalities of the kidney, manifested by either:Pathological abnormalities or Markers of kidney damage (including abnormalities in the composition of the blood or urine or abnormalities in imaging tests). Lab Interpretation Abnormal (test code = 63610-5) [facility] [place] [place]. METABOLIC PANEL ([id number])2022-10-19 01:15:18 Test Item Value Reference Range Interpretation Comments NA (test code = 139 mmol/L 135-145 6152439113) K (test code = 4.7 mmol/L 3.5-5.0 2760817041) CL (test code = 103 mmol/L 98-108 8655937144) CO2 TOTAL (test code = 26 mmol/L 23-31 7891538289) AGAP (test code = 10 2-16 3313399059) BUN (test code = 12 mg/dL 7-23 1767039144) GLUCOSE (test code = 252 mg/dL 70-110 H 9347932564) CREATININE (test code = 0.72 mg/dL 0.50-1.04 2613616612) TOTAL BILI (test code = 0.2 mg/dL 0.1-1.3 5647770211) CALCIUM (test code = 9.6 mg/dL 8.6-10.6 6420978526) T PROTEIN (test code = 8.5 g/dL 6.3-8.2 H 5027852492) ALBUMIN (test code = 4.5 g/dL 3.5-5.0 4389144034) ALK PHOS (test code = 51 U/L 34-122 3559526232) ALTv (test code = 18 U/L 5-35 1742-6) AST(SGOT) (test code = 17 U/L 13-40 0533614212) eGFR (test code = 82.9 mL/min/1.73m2 9502966950) MARY ANN (test code = MARY ANN) Association of Glomerular Filtration Rate (GFR) and Staging of Kidney Disease* + --+ --+ ------+| GFR (mL/min/1.73 m2) ?| With Kidney Damage ?| ?Without Kidney Damage+ --------+ --------+ +| ?>90 ?| ?Stage one ?| ? Normal ?+ ---+ ---+ -------+| ?60-89 ?| ?Stage two ?| ? Decreased GFR ? + --+ --+ ------+| ?30-59 ?| ?Stage three ?| ? Stage three ? + --+ --+ ------+| ?15-29 ?| ?Stage four ? | ? Stage four ?+ ---+ ---+ -------+| ?<15 (or dialysis) ? ?| ?Stage five ? | ? Stage five ?+ ---+ ---+ -------+ *Each stage assumes the associated GFR level has been in effect for at least three months. ?Stages 1 to 5, with or without kidney disease, indicate chronic kidney disease. Notes: Determination of stages one and two (with eGFR >59mL/min/1.73 m2) requires estimation of kidney damage for at least three months as defined by structural or functional abnormalities of the kidney, manifested by either:Pathological abnormalities or Markers of kidney damage (including abnormalities in the composition of the blood or urine or abnormalities in imaging tests). Lab Interpretation Abnormal (test code = 50966-3) [facility] WITH [id number] 23:39:22 Test Item Value Reference Range Interpretation Comments WBC (test code = See_Comment [Automated 3590-2) message] The sy stem which generated this result transmitted reference range : 4.30 - 11.10 10*3/?L. The reference range was not used to interpret this result as normal/abnormal . RBC (test code = See_Comment [Automated 329-8) message] The sy stem which generated this result transmitted reference range : 3.93 - 5.25 10*6/?L. The reference range was not used to interpret this result as normal/abnormal . HGB (test code = 11.2 g/dL 11.6-15.0 L 718-7) HCT (test code = 35.1 % 35.7-45.2 L 4544-3) MCV (test code = 75.8 fL 80.6-95.5 L 787-2) MCH (test code = 24.2 pg 25.9-32.8 L 785-6) MCHC (test code = 31.9 g/dL 31.6-35.1 786-4) RDW-SD (test code = 42.2 fL 39.0-49.9 42564-9) RDW-CV (test code = 15.4 % 12.0-15.5 788-0) PLT (test code = See_Comment [Automated 777-3) message] The sy stem which generated this result transmitted reference range : 166 - 358 10*3/ ?L. The reference r luda was not used to interpret this result as normal/abnormal . MPV (test code = 10.6 fL 9.5-12.9 16453-7) NRBC/100 WBC (test See_Comment [Automat ed code = 7638109029) message] The system which generated this result transmitted reference range : 0.0 - 10.0 /100 WBCs. The refer ence range was not u sed to interpret th is result as normal/abnormal . NRBC x10^3 (test code See_Comment [Auto mated = 0759936918) message] The s ystem which generated this result transmitted reference range : 10*3/?L. The reference range was not used to interpret this result as normal/abnormal . GRAN MAT (NEUT) % 56.3 % (test code = 770-8) IMM GRAN % (test code 0.60 % = 2766823493) LYMPH % (test code = 34.7 % 736-9) MONO % (test code = 5.0 % 5905-5) EOS % (test code = 2.6 % 713-8) BASO % (test code = 0.8 % 706-2) GRAN MAT x10^3(ANC) 3.70 10*3/uL 1.88-7.09 (test code = 4653714467) IMM GRAN x10^3 (test 0.04 10*3/uL 0.00-0.06 code = 0135856468) LYMPH x10^3 (test code 2.28 10*3/uL 1.32-3.29 = 731-0) MONO x10^3 (test code 0.33 10*3/uL 0.33-0.92 = 742-7) EOS x10^3 (test code = 0.17 10*3/uL 0.03-0.39 711-2) BASO x10^3 (test code 0.05 10*3/uL 0.01-0.07 = 704-7) Lab Interpretation Abnormal (test code = 21673-2) [facility] WITH [id number] 23:39:22 Test Item Value Reference Range Interpretation Comments WBC (test code = 6.57 See_Comment [Automated 6690-2) message] The sy stem which generated this result transmitted reference range : 4.30 - 11.10 10*3/?L. The reference range was not used to interpret this result as normal/abnormal . RBC (test code = 4.63 See_Comment [Automated 789-8) message] The sy stem which generated this result transmitted reference range : 3.93 - 5.25 10*6/?L. The reference range was not used to interpret this result as normal/abnormal . HGB (test code = 11.2 g/dL 11.6-15.0 L 718-7) HCT (test code = 35.1 % 35.7-45.2 L 4544-3) MCV (test code = 75.8 fL 80.6-95.5 L 787-2) MCH (test code = 24.2 pg 25.9-32.8 L 785-6) MCHC (test code = 31.9 g/dL 31.6-35.1 786-4) RDW-SD (test code = 42.2 fL 39.0-49.9 03806-4) RDW-CV (test code = 15.4 % 12.0-15.5 788-0) PLT (test code = 306 See_Comment [Automated 777-3) message] The sy stem which generated this result transmitted reference range : 166 - 358 10*3/ ?L. The reference r luda was not used to interpret this result as normal/abnormal . MPV (test code = 10.6 fL 9.5-12.9 82241-8) NRBC/100 WBC (test 0.0 See_Comment [Automat ed code = 0817689784) message] The system which generated this result transmitted reference range : 0.0 - 10.0 /100 WBCs. The refer ence range was not u sed to interpret th is result as normal/abnormal . NRBC x10^3 (test code See_Comment [Auto mated = 6560385262) message] The s ystem which generated this result transmitted reference range : 10*3/?L. The reference range was not used to interpret this result as normal/abnormal . GRAN MAT (NEUT) % 56.3 % (test code = 770-8) IMM GRAN % (test code 0.60 % = 4219012004) LYMPH % (test code = 34.7 % 736-9) MONO % (test code = 5.0 % 5905-5) EOS % (test code = 2.6 % 713-8) BASO % (test code = 0.8 % 706-2) GRAN MAT x10^3(ANC) 3.70 10*3/uL 1.88-7.09 (test code = 3612674755) IMM GRAN x10^3 (test 0.04 10*3/uL 0.00-0.06 code = 0940483450) LYMPH x10^3 (test code 2.28 10*3/uL 1.32-3.29 = 731-0) MONO x10^3 (test code 0.33 10*3/uL 0.33-0.92 = 742-7) EOS x10^3 (test code = 0.17 10*3/uL 0.03-0.39 711-2) BASO x10^3 (test code 0.05 10*3/uL 0.01-0.07 = 704-7) Lab Interpretation Abnormal (test code = 51644-0) [facility] HEMOGLOBIN A1C [id number] 14:25:00 Test Item Value Reference Range Interpretation Comments POCT HBA1C (test code = 4548-4) 7.9 % 4-6 A Lab Interpretation (test code = Abnormal 06549-3) [facility] HEMOGLOBIN A1C [id number] 14:25:00 Test Item Value Reference Range Interpretation Comments POCT HBA1C (test code = 4548-4) 7.9 % 4-6 A Lab Interpretation (test code = Abnormal 93117-0) [facility] URINALYSIS W SPECIFIC [id number] 17:22:00 Test Item Value Reference Range Interpretation Comments POCT U SP GRAV (test 1.010 mg/dl 1.005-1.025 code = 3255) POCT PH U (test code = 5 mg/dl 5-8 3254) POCT U LEUK EST (test ++ Negative - code = 3263) Negative POCT U NIT (test code pos Negative - = 3262) Negative POCT U PROT (test code trace Negative - = 3259) Negative POCT U GLU (test code normal Negative - = 3256) Negative POCT U KETONE (test neg Negative - code = 3258) Negative POCT U UROBILI (test normal 0.2-1 code = 3260) POCT U BILI (test code neg Negative - = 3261) Negative POCT U BLD (test code about 250 Negative - = 3257) Negative POCT U COLOR (test yellow code = 3266) POCT U APPEAR (test cloudy code = 3267) MARY ANN (test code = MARY ANN) accurate development and interpretation of all internal controls Lab Interpretation Abnormal (test code = 82395-7) [facility] Notes Date/Time Note Provider Source 2023-04-09 08:44:24-00:00 Formatting of this note is d ifferent from the original. Katherine Sierra MA [facility] Images from the original note were not included. Please review and sign if appropriate. Name from pharmacy: GABAPENTIN 600MG TABLETS Will file in chart as: GABAPENTIN 600 mg tablet Sig: TAKE 1 TABLET BY MOUTH IN THE MORNING AND AT NOON AND IN THE EVENING Disp: 270 tablet Refills: 0 (Pharmacy requested : Not specified) Start: 04/08/2023 Class: eRX For: Neuropathy Last ordered: 3 months ago (01/08/2023) by Pierce Torres MD Last refill: 03/11/2023 Rx #: [id number]|1|0|1 Neuropathic Pain Failed 04/08/2023 03:53 AM Protocol Details Manual Review: Verify n o changes in dose in the last 3 months Valid encounter within last 12 months To be filled at: ALIYAH Lori [employer] [id number] - [place], [place] - [address] [facility] Recent Visits Date Type Provider Dept 02/25/23 Office Visit Adamaris Torres MD [facility] 02/08/23 Office Visit Shila Palmer PA [facility] 01/08/23 Office Visit Adamaris Torres MD [facility] 12/11/22 Office Visit Adamaris Torres MD [facility] 10/30/22 Office Visit Adamaris Torres MD [facility] 08/27/22 Office Visit Adamaris Torres MD [facility] 07/30/22 Office Visit Adamaris Torres MD [facility] 06/25/22 Office Visit Adamaris Torres MD [facility] 05/24/22 Office Visit Adamaris Torres MD [facility] Showing recent visits within past 540 days with a meds authorizing provider and meeting all other requirements Future Appointments Date Type Provider Dept 04/29/23 Appointment Adamaris Torres MD [facility] Showing future appointments within next 150 days with a meds authorizing provider and meeting all other requirements Electronically signed by Katherine Sierra MA at 8:45 AM CDT
[2023-04-09] MEDS ORDERED: MORPHINE 2 MG/ML SYR ONE (23:02)
--- NOTE | 2023-04-10 00:04 | ER ---
Nurse's Notes [facility] Name: Stephanie Noel Age: 58 yrs Sex: Female : 1965 Arrival Date: 04/09/2023 Time: 21:53 Bed 18 Private MD: Diagnosis: Pain in right knee Presentation: 04/09 22:04 Chief complaint: Patient states: "I have a torn meniscus and I woke up last night from as6 the pain and it's making my blood pressure high". Coronavirus screen: At this time, the client does not indicate any symptoms associated with coronavirus-19. Ebola Screen: No symptoms or risks identified at this time. Initial Sepsis Screen: Does the patient meet any 2 criteria? No. Patient's initial sepsis screen is negative. Does the patient have a suspected source of infection? No. Patient's initial sepsis screen is negative. Risk Assessment: Do you want to hurt yourself or someone else? Patient reports no desire to harm self or others. Onset of symptoms was April 08, 2023. 22:04 Acuity: MADONNA 3 as6 22:04 Method Of Arrival: Ambulatory as6 Historical: - Allergies: 22:07 Lantus; as6 22:07 Tetanus Vaccines and Toxoid; as6 - PMHx: 22:07 Panic Attacks; Hypertension; Hyperlipidemia; Diabetes - IDDM; Depression; AVM; Anxiety; as6 GERD; - PSHx: 22:07 right rotator cuff; as6 - Immunization history:: Client reports having NOT received the Covid vaccine. - Social history:: Smoking status: Patient denies any tobacco usage or history of. Screenin:50 [facility] ED Fall Risk Assessment (Adult) History of falling in the last 3 months, jj7 including since admission No falls in past 3 months (0 pts) Confusion or Disorientation No (0 pts) Intoxicated or Sedated No (0 pts) Impaired Gait No (0 pts) Mobility Assist Device Used No (0 pt) Altered Elimination No (0 pt) Score/Fall Risk Level 0 - 2 = Low Risk Oriented to surroundings, Maintained a safe environment. Abuse screen: Denies threats or abuse. Nutritional screening: No deficits noted. Tuberculosis screening: No symptoms or risk factors identified. Assessment: 22:50 General: Appears in no apparent distress. comfortable, Behavior is calm, cooperative, jj7 appropriate for age. Pain: Complains of pain in right knee. Musculoskeletal: Reports pain in right knee. Vital Signs: 22:04 BP 171 / 96; Pulse 104; Resp 18 S; Temp 97.5(TE); Pulse Ox 97% on R/A; Weight 97.98 kg as6 (R); Height 5 ft. 0 in. (R); Pain 9/10; 23:01 BP 172 / 89; Pulse 97; Resp 17; Pulse Ox 100% ; jj7 04/10 00:05 BP 151 / 86; Pulse 97; Resp 19; Pulse Ox 100% ; Pain 0/10; jj7 04/09 22:04 Body Mass Index 42.18 (97.98 kg, 152.4 cm) as6 04/09 22:04 Pain Scale: Adult as6 04/10 00:05 Pain Scale: Adult j7 ED Course: 04/09 21:55 Patient arrived in ED. mr 22:07 Triage completed. as6 22:08 Timo Gay PA is PHCP. cp 22:08 Katherine Pelaez MD is Attending Physician. cp 22:08 Arm band placed on. as6 22:26 Mary Carmen Morocho RN is Primary Nurse. jj7 22:50 Patient has correct armband on for positive identification. Bed in low position. Call j7 light in reach. Side rails up X 1. Adult w/ patient. Provided Education on: TESTING. 22:50 No provider procedures requiring assistance completed. jj7 23:01 XRAY Knee RIGHT 3 view In Process Unspecified. EDMS 23:32 US Extremity Venous Unilateral Ltd In Process Unspecified. EDMS 04/10 00:02 Bob Chowdhury MD is Referral Physician. cp 00:12 Patient did not have IV access during this emergency room visit. jj7 Administered Medications: 04/09 22:59 Drug: morphine IM 6 mg Route: IM; Site: right gluteus; jj7 04/10 00:14 Follow up: Response: Marked relief of symptoms jj7 Medication: 04/09 22:50 VIS not applicable for this client. jj7 Outcome: 04/10 00:03 Discharge ordered by . cp 00:12 Discharged to home ambulatory, with family. jj7 00:12 Condition: improved 00:12 Discharge instructions given to patient, Instructed on discharge instructions, follow up and referral plans. medication usage, Demonstrated understanding of instructions, follow-up care, medications, Prescriptions given X 1. 00:13 Patient left the ED. jj7 Signatures: Dispatcher [employer] [facility] Stephania Orozco Timo Gay PA PA cp Slawson, Ashby, RN RN as6 Mary Carmen Morocho RN RN jj7
--- NOTE | 2023-04-10 00:04 | EDPHYS ---
Physician Documentation [facility] Name: Stephanie Noel Age: 58 yrs Sex: Female : 1965 Arrival Date: 04/09/2023 Time: 21:53 Bed 18 Private MD: ED Physician Katherine Pelaez HPI: 04/09 22:30 This 58 yrs old Black Female presents to ER via Ambulatory with complaints of High cp Blood Pressure, Knee Pain. 22:30 The patient has elevated blood pressure and discovered this at home. Patient reports cp PMHX of htn and concerned blood pressure has been elevated. Patient thinks may be due to right knee pain that has worsened recently. Patient reports HX of right knee meniscus tear. Pain to right knee worse since last night. Historical: - Allergies: 22:07 Lantus; as6 22:07 Tetanus Vaccines and Toxoid; as6 - PMHx: 22:07 Panic Attacks; Hypertension; Hyperlipidemia; Diabetes - IDDM; Depression; AVM; Anxiety; as6 GERD; - PSHx: 22:07 right rotator cuff; as6 - Immunization history:: Client reports having NOT received the Covid vaccine. - Social history:: Smoking status: Patient denies any tobacco usage or history of. ROS: 22:35 MS/extremity: Positive for pain, swelling, tenderness, of the right knee, Negative for cp decreased range of motion, deformity, paresthesias. 22:35 Constitutional: Negative for body aches, chills, fever, poor PO intake. cp 22:35 Respiratory: Negative for cough, shortness of breath, wheezing. 22:35 Abdomen/GI: Negative for abdominal pain, vomiting, diarrhea, constipation. 22:35 Skin: Negative for cellulitis, rash. 22:35 All other systems are negative. Exam: 22:40 Constitutional: The patient appears in no acute distress, alert, awake, well developed, cp well nourished, uncomfortable. 22:40 Head/Face: Normocephalic, atraumatic. cp 22:40 Eyes: Periorbital structures: appear normal, Conjunctiva: normal, no exudate, no injection, Lids and lashes: appear normal, bilaterally. 22:40 ENT: External ear(s): are unremarkable, Nose: is normal, Mouth: Lips: moist, Oral mucosa: moist, Posterior pharynx: is normal, airway is patent, no erythema, no exudate. 22:40 Chest/axilla: Inspection: normal. 22:40 Cardiovascular: Rate: tachycardic, Rhythm: regular. 22:40 Respiratory: the patient does not display signs of respiratory distress, Respirations: normal, no use of accessory muscles. 22:40 Abdomen/GI: Inspection: abdomen appears normal. 22:40 Musculoskeletal/extremity: Extremities: grossly normal except: noted in the right knee: pain, swelling, tenderness, There is no evidence of decreased ROM, deformity, ROM: limited passive range of motion due to pain, in the right knee, Perfusion: the extremity is normally perfused throughout, Weight bearing: able to fully bear weight. 22:40 Skin: cellulitis, is not appreciated, no rash present. Vital Signs: 22:04 BP 171 / 96; Pulse 104; Resp 18 S; Temp 97.5(TE); Pulse Ox 97% on R/A; Weight 97.98 kg as6 (R); Height 5 ft. 0 in. (R); Pain 9/10; 23:01 BP 172 / 89; Pulse 97; Resp 17; Pulse Ox 100% ; jj7 04/10 00:05 BP 151 / 86; Pulse 97; Resp 19; Pulse Ox 100% ; Pain 0/10; jj7 04/09 22:04 Body Mass Index 42.18 (97.98 kg, 152.4 cm) as6 04/09 22:04 Pain Scale: Adult as6 04/10 00:05 Pain Scale: Adult jj7 MDM: 04/09 22:08 Patient medically screened. 23:00 Differential diagnosis: hypertensive crisis, Malignant HTN, effusion, fracture, septic cp joint. 23:42 ED course: US tech reports negative for DVT. 04/10 00:02 Data reviewed: vital signs, nurses notes, radiologic studies, plain films, ultrasound. 00:02 I considered the following discharge prescriptions or medication management in the emergency department Medications were administered in the Emergency Department. See MAR. Care significantly affected by the following chronic conditions: Diabetes, Hypertension. Counseling: I had a detailed discussion with the patient and/or guardian regarding: the historical points, exam findings, and any diagnostic results supporting the discharge/admit diagnosis, radiology results, the need for outpatient follow up, for definitive care, a orthopedic surgeon, to return to the emergency department if symptoms worsen or persist or if there are any questions or concerns that arise at home. Response to treatment: the patient's symptoms have markedly improved after treatment, and as a result, I will discharge patient. 04/09 22:25 Order name: US Extremity Venous Unilateral Ltd cp 04/09 22:25 Order name: XRAY Knee RIGHT 3 view cp Administered Medications: 04/09 22:59 Drug: morphine IM 6 mg Route: IM; Site: right gluteus; jj7 04/10 00:14 Follow up: Response: Marked relief of symptoms jj7 Disposition Summary: 04/10/23 00:03 Discharge Ordered Location: Home cp Problem: new cp Symptoms: have improved cp Condition: Stable cp Diagnosis - Pain in right knee cp Followup: cp - With: Bob Chowdhury MD - When: 2 - 3 days - Reason: Recheck today's complaints Discharge Instructions: - Discharge Summary Sheet cp - Joint Pain cp Forms: - Medication Reconciliation Form cp - Thank You Letter cp - Antibiotic Education cp - Prescription Opioid Use cp - Patient Portal Instructions cp Prescriptions: - Tramadol 50 mg Oral Tablet - take 1 tablet by ORAL route every 8 hours as needed; 12 tablet; Refills: 0, cp Product Selection Permitted Signatures: Dispatcher [employer] EDMS Timo Gay PA PA cp Tylor Pinto RN RN as6 Mary Carmen Morocho RN RN jj7 Corrections: (The following items were deleted from the chart) 23:59 04/09 23:30 This 58 yrs old Black Female presents to ER via Ambulatory with complaints cp of High Blood Pressure, Knee Pain. cp
[2023-04-10 01:30] VITALS: TEMP 97.5
[2023-04-10 01:32] VITALS: O2SAT 100
[2023-04-10 01:33] VITALS: BP 151/86
--- NOTE | 2023-04-10 12:03 | RAD REPORT ---
EXAM DESCRIPTION: Knee Right 3 View CLINICAL HISTORY: 58 years Female PAIN COMPARISON: None TECHNIQUE: 3 images of the right knee were obtained. FINDINGS: Mild joint space narrowing. No fractures seen. Normal bony mineralization. No erosive or lytic lesions seen. Possible small joint effusion. IMPRESSION: No acute fracture or dislocation seen. Mild degenerative change. Electronically signed by: Love Mayers MD 04/09/2023 11:20 PM CDT Due to temporary technical issues with the PACS/Fluency reporting system, reports are being signed by the in house radiologists without review as a courtesy to insure prompt reporting. The interpreting radiologist is fully responsible for the content of the report.
--- NOTE | 2023-04-10 12:59 | RAD REPORT ---
EXAM DESCRIPTION: Extremity Venous Uni Ltd CLINICAL HISTORY: 58 years Female PAIN Extremity Venous Uni Ltd COMPARISON: None TECHNIQUE: Spectral analysis and color/grayscale sonographic images of the right leg were obtained u tilizing a high-frequency linear array transducer supplemented with color Doppler, compression and au gmentation techniques. FINDINGS: Common femoral: normal Greater saphenous: normal Superficial femoral: normal Popliteal: normal Calf Veins: normal IMPRESSION: 1. No sonographic evidence for right lower extremity deep venous thrombosis. Electronically signed by: Emily Webb MD 04/09/2023 11:45 PM CDT Due to temporary technical issues with the PACS/Fluency reporting system, reports are being signed by the in house radiologists without review as a courtesy to insure prompt reporting. The interpreting radiologist is fully responsible for the content of the report.
== END 2023-04-10 00:13 | disposition home or self-care (01) ==
LOC: ER 21:53
DX: M25.561 Pain in right knee (principal); I10 Essential (primary) hypertension; Z88.7 Allergy status to serum and vaccine; Z88.8 Allergy status to other drugs, medicaments and biological substances
CPT/HCPCS: 73562; 93971; 96372; 99284; J2270

== ENCOUNTER 2024-03-13 02:09 | Emergency (ER) | payer OTHER ==
[2024-03-13] MEDS ORDERED: LORAZEPAM 1 MG TABLET ONE (03:11)
[2024-03-13 03:33] LABS: PT Prothrombin Time 10.3 SECONDS (9.4-12.5); Protime INR 0.93
[2024-03-13 03:35] LABS: Absolute Basophils 0.1 K/uL (0-0.5); Absolute Eosinophils 0.1 K/uL (0-0.5); Absolute Lymphocytes (CBC) 0.5 K/uL (0.7-4.9); Absolute Monocytes 0.3 K/uL (0.1-1.3); Absolute Neutrophil 7.1 K/uL (1.8-8.0); Basophils % 0.6 % (0-1.3); Eosinophils % 1.4 % (0-4.4); Hematocrit 31.9 % (36.0-45.0); Hemoglobin 10.3 g/dL (12.0-15.0); MCH 24.6 pg (27.0-35.0); MCHC 32.3 g/dL (32.0-36.0); MPV 8.7 fL (7.6-11.3); Monocytes % 4.2 % (3.3-12.3); Neutrophils % 87.8 % (41.7-73.7); Platelets 257 thou/uL (152-406); RBC Red Blood Cell Count 4.19 M/uL (3.86-4.86); Red Cell Distribution Width 16.2 % (12.1-15.2)
[2024-03-13 03:49] LABS: ALT/SGPT 25 U/L (13-56); AST/SGOT 15 U/L (15-37); Albumin 3.5 g/dL (3.4-5.0); Albumin/Globulin Ratio 0.9 (1.1-1.8); Alkaline Phosphatase 55 U/L (45-117); BUN Blood Urea Nitrogen 19 mg/dL (7-18); Bicarbonate 23 mEq/L (21-32); Globulin 4.1 g/dL (2.3-3.5); Glomerular Filtration Rate 50 ml/min (=/>90); Glucose Level 271 mg/dL (74-106); Magnesium 1.6 mg/dL (1.6-2.4); NT PRO-BNP 18 pg/mL (<125); Protein, Total 7.6 g/dL (6.4-8.2); Sodium Level 136 mEq/L (136-145)
[2024-03-13 03:54] LABS: Bilirubin Direct < 0.2 mg/dL (0-0.2); Bilirubin Total < 0.2 mg/dL (0.2-1.0); Troponin High Sensitivity < 3.0 pg/mL (<58.9)
[2024-03-13 04:38] LABS: Band Neutrophils 4 % (0-1); Differential Total Cells Count 100; Eosinophils 2 % (0-3); Lymphocytes 7 % (15-42); Monocytes 3 % (0-10); Reactive Lymphocytes 2 %; Segmented Neutrophils 81 % (40-80)
[2024-03-13 04:39] LABS: Blood Morphology Comment NOTED (NOT SEEN); Microcytosis 1+; Platelet Estimate ADEQ
[2024-03-13] MEDS ORDERED: IBUPROFEN 400 MG TAB ONE (06:06)
[2024-03-13] MEDS ORDERED: ACETAMINOPHEN 500 MG TAB ONE (06:06)
[2024-03-13] MEDS ORDERED: NA CHLORIDE 0.9% 2,000 ML ONE (06:06)
[2024-03-13 06:09] LABS: Specific Gravity 1.013 (1.005-1.030); Sqamous Epithelial <5 /HPF (None Seen); Urine Bacteria None Seen /HPF (<20); Urine Bilirubin NEGATIVE (Negative); Urine Blood Negative (Negative); Urine Clarity Clear (Clear); Urine Color Colorless (Yellow); Urine Culture Reflex Order NOT NEEDED; Urine Glucose 2+ (Negative); Urine Ketones NEGATIVE (Negative); Urine Micro Reflex YN NO BILL MICROSCOPIC; Urine Mucus Slight /HPF (None Seen); Urine Nitrite NEGATIVE (Negative); Urine Protein NEGATIVE (Negative); Urine RBC <5 /HPF (None Seen); Urine Urobilinogen Normal (Normal); Urine WBC <5 /HPF (<5); Urine pH 5.5 (5.0-7.0)
[2024-03-13 06:19] LABS: SARS-CoV-2 Antigen CONTROL BLUE LINE VIS/BG OK
[2024-03-13 06:20] LABS: SARS-CoV-2 Antigen Rapid Res Positive (Negative)
--- NOTE | 2024-03-13 06:33 | ER ---
Nurse's Notes [facility] Name: Stephanie Noel Age: 58 yrs Sex: Female : 1965 Arrival Date: 03/13/2024 Time: 02:09 Bed 17 Private MD: Diagnosis: Acute COVID-19, acute systemic viral illness, acute body aches, acute febrile illness Presentation: 03/13 02:26 Chief complaint: Patient states: intermittent HTN and increased HR X2 days. mild center lg3 CP radiating to back. Coronavirus screen: Client denies travel out of the [place] in the last 14 days. At this time, the client does not indicate any symptoms associated with coronavirus-19. Ebola Screen: No symptoms or risks identified at this time. Risk Assessment: Do you want to hurt yourself or someone else? Patient reports no desire to harm self or others. Onset of symptoms was March 11, 2024. 02:26 Method Of Arrival: Ambulatory lg3 02:26 Acuity: MADONNA 3 lg3 02:30 Initial Sepsis Screen: Does the patient meet any 2 criteria? No. Patient's initial jw7 sepsis screen is negative. Does the patient have a suspected source of infection? No. Patient's initial sepsis screen is negative. Triage Assessment: 02:27 General: Appears in no apparent distress. comfortable, Behavior is calm, cooperative. lg3 Pain: Complains of pain in chest Pain radiates to back Pain currently is 2 out of 10 on a pain scale. Quality of pain is described as pressure. EENT: No deficits noted. No signs and/or symptoms were reported regarding the EENT system. Neuro: No deficits noted. Aiken Agitation-Sedation Scale (RASS): 0 - Alert and Calm Level of Consciousness is awake, alert, obeys commands, Oriented to person, place, time, situation. Cardiovascular: Capillary refill < 3 seconds Clubbing of nail beds is absent JVD is absent Patient's skin is warm and dry. Rhythm is sinus tachycardia. Respiratory: No deficits noted. Airway is patent Respiratory effort is even, unlabored, Respiratory pattern is regular, symmetrical. GI: No deficits noted. No signs and/or symptoms were reported involving the gastrointestinal system. : No deficits noted. No signs and/or symptoms were reported regarding the genitourinary system. Derm: No deficits noted. No signs and/or symptoms reported regarding the dermatologic system. Skin is intact, is healthy with good turgor, Skin is dry, Skin is normal, Skin temperature is warm. Musculoskeletal: No deficits noted. No signs and/or symptoms reported regarding the musculoskeletal system. Circulation, motion, and sensation intact. Range of motion: intact in all extremities. Historical: - Allergies: 02: Lantus; lg3 02:27 Tetanus Vaccines and Toxoid; lg3 - Home Meds: 02:27 lisinopril 20 mg Oral tab 1 tab once daily [Active]; carvedilol oral [Active]; baclofen lg3 Oral [Active]; metformin 1 Oral tab 1 tab 2 times per day [Active]; Tresiba FlexTouch U-100 100 unit/mL (3 mL) subcutaneous inpn 68 unit daily [Active]; Januvia oral [Active]; ezetimibe 10 mg oral tablet [Active]; Clonazepam Oral [Active]; Trazodone Oral [Active]; amlodipine oral [Active]; - PMHx: 02: Anxiety; AVM; Depression; Diabetes - IDDM; GERD; Hyperlipidemia; Hypertension; Panic lg3 Attacks; - PSHx: 02:27 right rotator cuff; Cholecystectomy; lg3 - Immunization history:: Adult Immunizations up to date, Client reports having NOT received the Covid vaccine. Flu vaccine is up to date. - Infectious Disease History:: Denies. - Social history:: Smoking status: Patient denies any tobacco usage or history of. Patient/guardian denies using alcohol, street drugs. - Family history:: not pertinent. Screenin:30 [facility] ED Fall Risk Assessment (Adult) History of falling in the last 3 months, jw7 including since admission No falls in past 3 months (0 pts) Confusion or Disorientation No (0 pts) Intoxicated or Sedated No (0 pts) Impaired Gait No (0 pts) Mobility Assist Device Used No (0 pt) Altered Elimination No (0 pt) Score/Fall Risk Level 0 - 2 = Low Risk Oriented to surroundings, Maintained a safe environment, Educated pt \T\ family on fall prevention, incl call for assistance when getting out of bed. Abuse screen: Denies threats or abuse. Denies injuries from another. Nutritional screening: No deficits noted. Tuberculosis screening: No symptoms or risk factors identified. Assessment: 02:30 General: Appears in no apparent distress. comfortable, Behavior is calm, cooperative, jw7 appropriate for age. Pain: Complains of pain in chest Pain radiates to back Pain currently is 2 out of 10 on a pain scale. Quality of pain is described as pressure, Pain began 2-3 days ago. Is intermittent. Neuro: Level of Consciousness is awake, alert, obeys commands, Oriented to person, place, time, situation. Cardiovascular: Heart tones S1 S2 present Capillary refill < 3 seconds Clubbing of nail beds is absent JVD is absent Patient's skin is warm and dry. 02:30 Neuro: Reports dizziness, upon standing. Cardiovascular:. Respiratory: Airway is patent jw7 Trachea midline Respiratory effort is even, unlabored, Respiratory pattern is regular, symmetrical, Breath sounds are clear bilaterally. GI: Abdomen is round non-distended, Bowel sounds present X 4 quads. Abd is soft and non tender X 4 quads. : No deficits noted. No signs and/or symptoms were reported regarding the genitourinary system. EENT: No deficits noted. No signs and/or symptoms were reported regarding the EENT system. Derm: Skin is intact, is healthy with good turgor, Skin is dry, Skin is normal, Skin temperature is warm. Musculoskeletal: Circulation, motion, and sensation intact. Range of motion: intact in all extremities. 03:30 Reassessment: Patient appears in no apparent distress at this time. No changes from jw7 previously documented assessment. Patient and/or family updated on plan of care and expected duration. Pain level reassessed. Patient is alert, oriented x 3, equal unlabored respirations, skin warm/dry/pink. 04:30 Reassessment: Patient appears in no apparent distress at this time. No changes from jw7 previously documented assessment. Patient and/or family updated on plan of care and expected duration. Pain level reassessed. Patient is alert, oriented x 3, equal unlabored respirations, skin warm/dry/pink. 05:30 Reassessment: Patient appears in no apparent distress at this time. No changes from jw7 previously documented assessment. Patient and/or family updated on plan of care and expected duration. Pain level reassessed. Patient is alert, oriented x 3, equal unlabored respirations, skin warm/dry/pink. 06:51 Reassessment: Patient appears in no apparent distress at this time. Patient and/or jw7 family updated on plan of care and expected duration. Pain level reassessed. Patient is alert, oriented x 3, equal unlabored respirations, skin warm/dry/pink. Patient states symptoms have improved. Vital Signs: 02:42 BP 149 / 89 LA Supine (auto/lg); Pulse 129 MON; Resp 14 S; Temp 100.8(O); Pulse Ox 100% ty on R/A; Weight 103.42 kg (M); Height 5 ft. 0 in. ; Pain 7/10; 03:30 BP 129 / 75; Pulse 124; Resp 23 S; Pulse Ox 100% on R/A; jw7 04:30 BP 134 / 76; Pulse 117; Resp 20 S; Pulse Ox 99% on R/A; jw7 05:30 BP 112 / 78; Pulse 124; Resp 21 S; Pulse Ox 100% on R/A; jw7 06:30 BP 120 / 59; Pulse 118; Resp 25 S; Temp 99.1(O); Pulse Ox 98% on R/A; jw7 02:42 Body Mass Index 44.53 (103.42 kg, 152.4 cm) ty 02:42 Pain Scale: Adult ty [place] Coma Score: 06:35 Eye Response: spontaneous(4). Motor Response: obeys commands(6). Verbal Response: sp4 oriented(5). Total: 15. ED Course: 02:13 Patient arrived in ED. jj6 02:15 Gautam Bell MD is Attending Physician. sp4 02:27 Triage completed. lg3 02:27 Arm band placed on right wrist. lg3 02:30 Patient has correct armband on for positive identification. Bed in low position. Call jw7 light in reach. Side rails up X 1. Provided Education on: Use of Call Light. 02:34 Citlalli Cavazos, RN is Primary Nurse. jw7 02:39 EKG done, by ED staff, reviewed by Gautam Bell MD. ty 02:57 Inserted saline lock: 22 gauge in right antecubital area, using aseptic technique. ty Blood collected. 02:58 Initial lab(s) drawn, by me, sent to lab. ty 02:59 Basic Metabolic Panel Sent. ty 02:59 CBC with Diff Sent. ty 02:59 LFT's Sent. ty 02:59 Magnesium Sent. ty 02:59 NT PRO-BNP Sent. ty 02:59 PT-INR Sent. ty 02:59 Troponin HS Sent. ty 03:15 XRAY Chest (1 view) In Process Unspecified. EDMS 06:53 No provider procedures requiring assistance completed. IV discontinued, intact, jw7 bleeding controlled, No redness/swelling at site. Pressure dressing applied. Administered Medications: 03:22 Drug: LORazepam PO 2 mg PO once Route: PO; jw7 05:02 Follow up: Response: No adverse reaction; Marked relief of symptoms jw7 06:19 Drug: NS 0.9% IV 1000 ml IV at 1 bolus Per protocol; 1000 mL bolus Route: IV; Rate: 1 jw7 bolus; Site: right antecubital; 06:52 Follow up: Response: No adverse reaction; IV Status: Completed infusion; IV Intake: jw7 200ml 06:20 Drug: NS 0.9% IV 1000 ml IV at 250 ml/hr continuous Route: IV; Rate: 250 ml/hr; Site: jw7 right antecubital; 06:53 Follow up: Response: No adverse reaction; IV Status: Completed infusion; IV Intake: jw7 175ml 06:20 Drug: Ibuprofen PO 800 mg PO once Route: PO; jw7 06:53 Follow up: Response: No adverse reaction; Marked relief of symptoms jw7 06:20 Drug: Acetaminophen PO 1000 mg PO once Route: PO; jw7 06:53 Follow up: Response: No adverse reaction; Marked relief of symptoms jw7 Medication: 06:54 VIS not applicable for this client. jw7 Intake: 06:52 IV: 200ml; Total: 200ml. jw7 06:53 IV: 175ml; Total: 375ml. jw7 Outcome: 06:33 Discharge ordered by . ragini 06:53 Discharged to home ambulatory, jw7 06:53 Condition: stable 06:53 Discharge instructions given to patient, Instructed on discharge instructions, follow up and referral plans. medication usage, Demonstrated understanding of instructions, follow-up care, medications, Prescriptions given X 3, 06:54 Patient left the ED. jw7 Signatures: Dispatcher [employer] EDMS Leanna Castro RN RN lg3 Caryn Cookj6 Citlalli Cavazos RN RN jw7 Gautam Bell MD MD sp4 Tate Guy Corrections: (The following items were deleted from the chart) 04:49 02:30 Initial Sepsis Screen: Does the patient meet any 2 criteria? No. Patient's jw7 initial sepsis screen is negative. Does the patient have a suspected source of infection? No. Patient's initial sepsis screen is negative. jw7 04:49 02:30 Initial Sepsis Screen: Does the patient meet any 2 criteria? Temp <36.0*C jw7 (96.8*F)) or > 38.3*C (100.9*F). HR > 90 bpm. Yes Does the patient have a suspected source of infection? No. Patient's initial sepsis screen is negative. jw7
--- NOTE | 2024-03-13 06:33 | EDPHYS ---
Physician Documentation [facility] Name: Stephanie Noel Age: 58 yrs Sex: Female : 1965 Arrival Date: 03/13/2024 Time: 02:09 Bed 17 Private MD: ED Physician Gautam Bell HPI: 03/13 02:15 This 58 yrs old Black Female presents to ER via Unassigned with complaints of High sp4 Blood Pressure. 06:37 4-year-old female presents with 1 day of anxiety, palpitations, elevated blood pressure sp4 also noted to be febrile at 102.4 on arrival.. Historical: - Allergies: 02:27 Lantus; lg3 02:27 Tetanus Vaccines and Toxoid; lg3 - Home Meds: 02:27 lisinopril 20 mg Oral tab 1 tab once daily [Active]; carvedilol oral [Active]; baclofen lg3 Oral [Active]; metformin 1 Oral tab 1 tab 2 times per day [Active]; Tresiba FlexTouch U-100 100 unit/mL (3 mL) subcutaneous inpn 68 unit daily [Active]; Januvia oral [Active]; ezetimibe 10 mg oral tablet [Active]; Clonazepam Oral [Active]; Trazodone Oral [Active]; amlodipine oral [Active]; - PMHx: 02:27 Anxiety; AVM; Depression; Diabetes - IDDM; GERD; Hyperlipidemia; Hypertension; Panic lg3 Attacks; - PSHx: 02:27 right rotator cuff; Cholecystectomy; lg3 - Immunization history:: Adult Immunizations up to date, Client reports having NOT received the Covid vaccine. Flu vaccine is up to date. - Infectious Disease History:: Denies. - Social history:: Smoking status: Patient denies any tobacco usage or history of. Patient/guardian denies using alcohol, street drugs. - Family history:: not pertinent. ROS: 06:37 Constitutional: Positive fever, positive anxiety, positive tachycardia, positive high sp4 blood pressure. 06:37 All other systems are negative, Exam: 06:35 Constitutional: This is a well developed, well nourished patient who is awake, alert, sp4 and in no acute distress. Febrile , Tachycardic Head/Face: Normocephalic, atraumatic. Eyes: Pupils equal round and reactive to light, extra-ocular motions intact. Lids and lashes normal. Conjunctiva and sclera are not injected. Cornea within normal limits. Periorbital areas with no swelling, redness, or edema. ENT: Nares patent. No nasal discharge, no septal abnormalities noted. Tympanic membranes are normal and external auditory canals are clear. Oropharynx with no redness, swelling, or masses, exudates, or evidence of obstruction, uvula midline. Mucous membranes moist. Neck: Trachea midline, no thyromegaly or masses palpated, and no cervical lymphadenopathy. Supple, full range of motion without nuchal rigidity, or vertebral point tenderness. Chest/axilla: Normal chest wall appearance and motion. Nontender with no deformity. No lesions are appreciated. Cardiovascular: Tachycardia, regular , No gallops, murmurs, or rubs. Normal PMI, no JVD. No pulse deficits. Respiratory: Lungs have equal breath sounds bilaterally, clear to auscultation and percussion. No rales, rhonchi or wheezes noted. No increased work of breathing, no retractions or nasal flaring. Abdomen/GI: Soft, with normal bowel sounds. No distension or tympany. No guarding or rebound. No evidence of tenderness throughout. Back: No spinal tenderness. No costovertebral tenderness. Skin: Warm, dry with normal turgor. Normal color with no rashes, no lesions, and no evidence of cellulitis. MS/ Extremity: Pulses equal, no cyanosis. Neurovascular intact. Full, normal range of motion. Neuro: Awake and alert, GCS 15, oriented to person, place, time, and situation. Cranial nerves II-XII grossly intact. Motor strength 5/5 in all extremities. Sensory grossly intact. Psych: Awake, alert, with orientation to person, place and time. Behavior, mood, and affect are within normal limits 06:36 ECG was reviewed by the Attending Physician. EKG at 0 234 presents with acute sinus sp4 tachycardia at the rate of 126. Vital Signs: 02:42 BP 149 / 89 LA Supine (auto/lg); Pulse 129 MON; Resp 14 S; Temp 100.8(O); Pulse Ox 100% ty on R/A; Weight 103.42 kg (M); Height 5 ft. 0 in. ; Pain 7/10; 03:30 BP 129 / 75; Pulse 124; Resp 23 S; Pulse Ox 100% on R/A; jw7 04:30 BP 134 / 76; Pulse 117; Resp 20 S; Pulse Ox 99% on R/A; jw7 05:30 BP 112 / 78; Pulse 124; Resp 21 S; Pulse Ox 100% on R/A; jw7 06:30 BP 120 / 59; Pulse 118; Resp 25 S; Temp 99.1(O); Pulse Ox 98% on R/A; jw7 02:42 Body Mass Index 44.53 (103.42 kg, 152.4 cm) ty 02:42 Pain Scale: Adult ty Zeke Coma Score: 06:35 Eye Response: spontaneous(4). Motor Response: obeys commands(6). Verbal Response: sp4 oriented(5). Total: 15. MDM: 03:38 Patient medically screened. sp4 05:43 ED course: EXAM DESCRIPTION: Chest Single View CLINICAL HISTORY: CHEST PAIN COMPARISON: sp4 None TECHNIQUE: Single AP view of the chest. FINDINGS: Lung volumes adequate. Cardiac silhouette is normal in size. No pneumothorax. No large pleural effusion. No focal consolidation. No acute bony finding. IMPRESSION: No evidence of acute cardiopulmonary disease. . 06:35 Differential diagnosis: hypertensive crisis, Malignant HTN. Data reviewed: vital signs, sp4 nurses notes, lab test result(s), EKG, radiologic studies, plain films. 06:37 Consideration of Admission/Observation Escalation of care including sp4 admission/observation considered. ED course: Stable for discharge home with Paxlovid and symptomatic medications.. 03/13 02:25 Order name: Basic Metabolic Panel; Complete Time: 05:41 sp4 03/13 02:25 Order name: CBC with Diff; Complete Time: 05:41 sp4 03/13 02:25 Order name: LFT's; Complete Time: 05:41 sp4 03/13 02:25 Order name: Magnesium; Complete Time: 05:41 sp4 03/13 02:25 Order name: NT PRO-BNP; Complete Time: 05:41 sp4 03/13 02:25 Order name: PT-INR; Complete Time: 05:41 sp4 03/13 02:25 Order name: Troponin HS; Complete Time: 05:41 sp4 03/13 04:01 Order name: Manual Differential; Complete Time: 05:41 EDMS 06/21 05:41 Order name: SARS RAPID; Complete Time: 06:20 sp4 03/13 05:41 Order name: Influenza Screen (a \T\ B); Complete Time: 06:42 sp4 03/13 05:42 Order name: Urinalysis W/Microscopic; Complete Time: 06:20 sp4 03/13 02:25 Order name: XRAY Chest (1 view) sp4 03/13 02:25 Order name: Cardiac monitoring; Complete Time: 02:45 sp4 03/13 02:25 Order name: EKG - Nurse/Tech; Complete Time: 02:45 sp4 03/13 02:25 Order name: IV Saline Lock; Complete Time: 02:59 sp4 03/13 02:25 Order name: Labs collected and sent; Complete Time: 02:59 sp4 03/13 02:25 Order name: O2 Per Protocol; Complete Time: 02:45 sp4 03/13 02:25 Order name: O2 Sat Monitoring; Complete Time: 02:45 sp4 EC:36 Rate is 126 beats/min. Rhythm is regular, Sinus tachycardia. QRS [place] is Normal. MS sp4 interval is normal. QRS interval is normal. QT interval is normal. No Q waves. T waves are Normal. No ST changes noted. Clinical impression: No evidence of ischemia. Interpreted by me. Reviewed by me. Administered Medications: 03:22 Drug: LORazepam PO 2 mg PO once Route: PO; jw7 05:02 Follow up: Response: No adverse reaction; Marked relief of symptoms jw7 06:19 Drug: NS 0.9% IV 1000 ml IV at 1 bolus Per protocol; 1000 mL bolus Route: IV; Rate: 1 jw7 bolus; Site: right antecubital; 06:52 Follow up: Response: No adverse reaction; IV Status: Completed infusion; IV Intake: jw7 200ml 06:20 Drug: NS 0.9% IV 1000 ml IV at 250 ml/hr continuous Route: IV; Rate: 250 ml/hr; Site: jw7 right antecubital; 06:53 Follow up: Response: No adverse reaction; IV Status: Completed infusion; IV Intake: jw7 175ml 06:20 Drug: Ibuprofen PO 800 mg PO once Route: PO; jw7 06:53 Follow up: Response: No adverse reaction; Marked relief of symptoms jw7 06:20 Drug: Acetaminophen PO 1000 mg PO once Route: PO; jw7 06:53 Follow up: Response: No adverse reaction; Marked relief of symptoms jw7 Disposition Summary: 03/13/24 06:33 Discharge Ordered Problem: new sp4 Symptoms: have improved sp4 Condition: Stable sp4 Diagnosis - Acute COVID-19, acute systemic viral illness, acute body aches, acute febrile sp4 illness Followup: sp4 - With: Private Physician - When: 5 - 6 days - Reason: Continuance of care Discharge Instructions: - Discharge Summary Sheet sp4 - COVID-19 sp4 Forms: - Patient Portal Instructions sp4 Prescriptions: - Paxlovid 300 mg (150 mg x 2)-100 mg Oral Tablet, Dose Pack - take 1 dose pack ORAL route as directed on dose pack take TWO 150 mg tablets of sp4 nirmatrelvir with ONE 100 mg tablet of ritonavir twice daily for 5 days; 1 Pack; Refills: 0, Product Selection Permitted - Ibuprofen 800 mg Oral Tablet - take 1 tablet ORAL route every 8 hours As needed take with food; 30 tablet; sp4 Refills: 0, Product Selection Permitted - ondansetron 8 mg Oral Tablet,disintegrating - take 1 tablet ORAL route every 8 hours PRN nausea; 30 tablet; Refills: 0, sp4 Product Selection Permitted Signatures: Dispatcher [employer] Leanna Ridley RN RN lg3 Citlalli Cavazos RN RN jw7 Gautam Bell MD MD sp4 Corrections: (The following items were deleted from the chart) 02:25 02:25 BASIC METABOLIC PANEL+C.LAB.BRZ ordered. EDMS EDMS 02:25 02:25 CBC+H.LAB.BRZ ordered. EDMS EDMS 02:25 02:25 HEPATIC FUNCTION+C.LAB.BRZ ordered. EDMS EDMS 02:25 02:25 MAGNESIUM+C.LAB.BRZ ordered. EDMS EDMS 02:25 02:25 PROBNP+C.LAB.BRZ ordered. EDMS EDMS 02:25 02:25 PROTIME (+INR)+COAG.LAB.BRZ ordered. EDMS EDMS 02:25 02:25 Troponin High Sensitivity+C.LAB.BRZ ordered. EDMS EDMS 02:25 02:25 Chest Single View+RAD.RAD.BRZ ordered. EDMS EDMS 05:42 05:42 SARS-COV-2 Antigen Rapid+I.LAB.BRZ ordered. EDMS EDMS 05:42 05:42 Influenza Screen (A \T\ B)+BA.LAB.BRZ ordered. EDMS EDMS
[2024-03-13 07:11] VITALS: BP 120/59; TEMP 99.1; O2SAT 98
--- NOTE | 2024-03-13 10:59 | RAD REPORT ---
EXAM DESCRIPTION: RAD - Chest Single View - 03/13/2024 3:13 am CLINICAL HISTORY: CHEST PAIN COMPARISON: None TECHNIQUE: Single AP view of the chest. FINDINGS: Lung volumes adequate. Cardiac silhouette is normal in size. No pneumothorax. No large pleural effusion. No focal consolidation. No acute bony finding. IMPRESSION: No evidence of acute cardiopulmonary disease. Electronically signed by: Emily Webb MD 03/13/2024 04:24 AM CDT RP Z9 Due to temporary technical issues with the PACS/Fluency reporting system, reports are being signed by the in house radiologist without review as a courtesy to ensure prompt reporting. The interpreting r adiologist is fully responsible for the content of the report.
--- NOTE | 2024-03-13 12:32 | EKG ---
Test Date: 2024-03-13 Test Time: 02:34:32 Dry Cleaner Hand: MISTY MEASUREMENT RESULTS: Intervals: Rate: 126 DC: 166 QRSD: 78 QT: 296 QTc: 428 [place]: P: 63 DC: 166 QRS: -13 T: 58 INTERPRETIVE STATEMENTS: Sinus tachycardia Otherwise normal ECG Compared to ECG 11/24/2021 21:37:34 Left ventricular hypertrophy no longer present Electronically Signed On 03-13-24 12:31:40 CDT by Jabari Castillo
== END 2024-03-13 06:54 | disposition home or self-care (01) ==
LOC: ER 02:09
DX: U07.1 COVID-19 (principal); B34.9 Viral infection, unspecified; M79.10 Myalgia, unspecified site
CPT/HCPCS: 93005; 85025; 81001; 80048; 36415; 83735; 85610; 80076; 84484; 83880; 87804 ×2; 71045; 96360; 99284; 87811; J7030

== ENCOUNTER 2024-03-16 16:20 | Observation (INO) | payer OTHER ==
[2024-03-16] MEDS ORDERED: MECLIZINE HCL 12.5 MG TAB ONE ×2 (17:03→22:34)
[2024-03-16] MEDS ORDERED: NA CHLORIDE 0.9% 500 ML ONE ×2 (17:03→19:44)
[2024-03-16 17:19] LABS: Absolute Basophils 0.1 K/uL (0-0.5); Absolute Eosinophils 0.2 K/uL (0-0.5); Absolute Lymphocytes (CBC) 2.2 K/uL (0.7-4.9); Absolute Monocytes 0.3 K/uL (0.1-1.3); Absolute Neutrophil 2.2 K/uL (1.8-8.0); Eosinophils % 4.2 % (0-4.4); Hematocrit 31.6 % (36.0-45.0); Hemoglobin 10.3 g/dL (12.0-15.0); Lymphocytes % 44.1 % (15.3-44.8); MCH 24.4 pg (27.0-35.0); MCHC 32.6 g/dL (32.0-36.0); MCV 75.1 fL (80-100); MPV 8.2 fL (7.6-11.3); Monocytes % 6.2 % (3.3-12.3); Neutrophils % 44.5 % (41.7-73.7); Nucleated Red Blood Cells % 0.2 % (0-0); Platelets 250 thou/uL (152-406); RBC Red Blood Cell Count 4.21 M/uL (3.86-4.86); Red Cell Distribution Width 16.5 % (12.1-15.2)
[2024-03-16 17:28] LABS: PT Prothrombin Time 10.6 SECONDS (9.4-12.5); PTT, Activated Partial Thromb 24.2 SECONDS (24.3-36.9); Protime INR 0.96
[2024-03-16 17:36] LABS: Anion Gap 6.7 mEq/L (5.0-15.0); Potassium 3.7 mEq/L (3.5-5.1); Troponin High Sensitivity 3.1 pg/mL (<58.9)
--- NOTE | 2024-03-16 18:09 | RAD REPORT ---
EXAM DESCRIPTION: CT - Head Brain Wo Cont - 03/16/2024 5:58 pm CLINICAL HISTORY: Dizziness COMPARISON: 2021 TECHNIQUE: Computed axial tomography of the head was obtained. IV contrast was not requested. All CT scans are performed using dose optimization technique as appropriate and may include automated exposure control or mA/KV adjustment according to patient size. FINDINGS: An intracranial bleed is not seen The ventricles are normal in caliber No significant hypodense areas within the brain visualized Empty sella turcica No extra-axial fluid collection is noted. Fluid within the sinuses/ mastoids is not seen IMPRESSION: No acute intracranial abnormality is seen If patient's symptoms persist MRI of the brain would be recommended
--- NOTE | 2024-03-16 18:59 | EDPHYS ---
Physician Documentation [facility] Name: Stephanie Noel Age: 58 yrs Sex: Female : 1965 Arrival Date: 03/16/2024 Time: 16:20 Bed 19 Private MD: ED Physician Tomas Santos HPI: 03/16 16:56 This 58 yrs old Black Female presents to ER via Ambulatory with complaints of Dizziness.rn 16:56 The patient presents with dizziness, feeling faint, sense of spinning. Onset: The rn symptoms/episode began/occurred yesterday. Modifying factors: The symptoms are alleviated by closing eyes, holding head still, the symptoms are aggravated by movement of head, standing up, changing position. Severity of symptoms: At their worst the symptoms were moderate in the emergency department the symptoms have improved. The patient has not experienced similar symptoms in the past. Patient reports diagnosed with COVID earlier this past week, feels like getting over it, no longer febrile, started yesterday with dizziness, feels faint and like everything is spinning. Associated with nausea. No fall or head injury. No other focal neurological deficit. Did report brief period where her right eye went dark that resolved after a few minutes yesterday. No vision changes today.. Historical: - Allergies: 16:44 Lantus; ph 16:44 Tetanus Vaccines and Toxoid; ph - PMHx: 16:44 Anxiety; AVM; Depression; Diabetes - IDDM; GERD; Hyperlipidemia; Hypertension; Panic ph Attacks; - PSHx: 16:44 Cholecystectomy; right rotator cuff; ph - Immunization history:: Adult Immunizations unknown. - Infectious Disease History:: Denies. - Social history:: Smoking status: Patient denies any tobacco usage or history of. - Family history:: not pertinent. - Hospitalizations: : No recent hospitalization is reported. ROS: 16:59 Constitutional: Negative for fever, chills, and weight loss, Neck: Negative for injury, rn pain, and swelling, Cardiovascular: Negative for chest pain, palpitations, and edema, Respiratory: Negative for shortness of breath, cough, wheezing, and pleuritic chest pain, Abdomen/GI: Positive for nausea Back: Negative for injury and pain, MS/Extremity: Negative for injury and deformity, Skin: Negative for injury, rash, and discoloration, Neuro: Positive for lightheadedness and dizziness. Exam: 16:59 Constitutional: This is a well developed, well nourished patient who is awake, alert, rn and in no acute distress. Head/Face: Normocephalic, atraumatic. Neck: Trachea midline, no masses palpated, and no cervical lymphadenopathy. Supple, full range of motion without nuchal rigidity, or vertebral point tenderness. No Meningismus. Cardiovascular: Regular rate and rhythm. No pulse deficits. Respiratory: No increased work of breathing, no retractions or nasal flaring. Abdomen/GI: Soft, non-tender MS/ Extremity: Pulses equal, no cyanosis. Neuro: Awake and alert, GCS 15 cranial nerves intact. Normal strength and equal throughout. And sensation intact. Vital Signs: 16:38 BP 150 / 82; Pulse 91; Resp 18; Temp 97.8; Pulse Ox 99% on R/A; Weight 101.6 kg; Height ph 5 ft. 0 in. ; 19:15 BP 148 / 115; Pulse 85; Pulse Ox 100% on R/A; Pain 0/10; tm6 16:38 Body Mass Index 43.75 (101.60 kg, 152.4 cm) ph 19:15 Pain Scale: Adult tm6 MDM: 16:37 Patient medically screened. 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 18:56 Differential diagnosis: CVA, generalized weakness, TIA, vertigo. Data reviewed: vital rn signs, nurses notes, lab test result(s), radiologic studies, CT scan, and as a result, I will admit patient. Consideration of Admission/Observation Patient was admitted/placed on observation. Escalation of care including admission/observation considered. Counseling: I had a detailed discussion with the patient and/or guardian regarding the historical points, exam findings, and any diagnostic results supporting the discharge/admit diagnosis, radiology results, the need for further work-up and treatment in the hospital. ED course: Patient with signs and symptoms of vertigo by unilateral vision loss concerning to me, unable to get MRI today because they went home, allergic to iodine so can get angios. Consulted with Dr. Cote, will admit for MRI and neuroconsult tomorrow.. 03/16 16:45 Order name: Basic Metabolic Panel; Complete Time: 17:47 rn 03/16 16:45 Order name: CBC with Diff; Complete Time: 17:47 rn 03/16 16:45 Order name: High Sensitivity Troponin; Complete Time: 17:47 rn 03/16 16:45 Order name: Protime (+inr); Complete Time: 17:47 rn 03/16 16:45 Order name: Ptt, Activated; Complete Time: 17:47 rn 03/16 19:25 Order name: Urinalysis w/ reflexes EDMS 03/16 19:25 Order name: CBC with Automated Diff EDMS 03/16 19:25 Order name: CBC with Automated Diff EDMS 03/16 19:25 Order name: Comprehensive Metabolic Panel EDMS 03/16 19:25 Order name: Comprehensive Metabolic Panel EDMS 03/16 19:25 Order name: Troponin High Sensitivity EDMS 03/16 19:25 Order name: Troponin High Sensitivity; Complete Time: 09:11 EDMS 03/16 19:25 Order name: Troponin High Sensitivity EDMS 03/16 19:25 Order name: Troponin High Sensitivity EDMS 03/16 20:09 Order name: Glucose, Ancillary Testing; Complete Time: 09:11 EDMS 03/17 09:05 Order name: Glucose, Ancillary Testing; Complete Time: 09:11 EDMS 03/16 16:46 Order name: CT Head Brain wo Cont; Complete Time: 18:17 rn 03/17 08:32 Order name: MRI; Complete Time: 09:11 EDWI 03/16 16:45 Order name: EKG; Complete Time: 16:48 rn 03/16 16:45 Order name: Accucheck; Complete Time: 19:58 rn 03/16 16:45 Order name: Cardiac monitoring; Complete Time: 19:14 rn 03/16 16:45 Order name: EKG - Nurse/Tech; Complete Time: 19:24 rn 03/16 16:45 Order name: IV Saline Lock; Complete Time: 19:51 rn 03/16 16:45 Order name: Labs collected and sent; Complete Time: 19:51 rn 03/16 16:45 Order name: O2 Per Protocol; Complete Time: 19:14 rn 03/16 16:45 Order name: O2 Sat Monitoring; Complete Time: 19:14 rn 03/16 16:45 Order name: Stroke Swallow Screen; Complete Time: 19:58 rn Administered Medications: 17:15 Drug: Meclizine PO 50 mg PO once Route: PO; rs5 19:58 Drug: NS 0.9% IV 500 ml IV at bolus once Route: IV; Rate: bolus; Site: left forearm; tm6 19:59 Drug: Aspirin PO 81 mg PO once Route: PO; tm6 Disposition Summary: 03/16/24 18:58 Hospitalization Ordered Notes: Hospitalization Status: Observation rn Provider: Ishaan Cote rn Condition: Stable rn Problem: new rn Symptoms: have improved rn Bed/Room Type: Standard rn Location: [facility] ER HOLD(03/16/24 20:08) lg3 Room Assignment: ERHOLD-(03/16/24 20:08) lg3 Diagnosis - Dizziness and giddiness rn - Vertigo rn Forms: - Medication Reconciliation Form rn - SBAR form rn - Leadership Thank You Letter rn Signatures: Dispatcher [employer] EDMS Tomas Santos MD MD rn Hall, Patricia RN Leanna Carter ph RN RN lg3 Jefry Mathews RN RN rs Alex Landry RN RN tm6 Corrections: (The following items were deleted from the chart) 16:48 16:48 Head Brain Wo Cont+CT.RAD.BRZ ordered. EDMS EDMS 16:48 16:48 Head Angio+CT.RAD.BRZ ordered. EDMS EDMS 16:48 16:48 Neck Angio+CT.RAD.BRZ ordered. EDMS EDMS 20:08 18:58 Telemetry/MedSurg (observation) rn lg3 20:08 18:58 rn lg3
--- NOTE | 2024-03-16 18:59 | ER ---
Nurse's Notes [facility] [place] Name: Stephanie Noel Age: 58 yrs Sex: Female : 1965 Arrival Date: 03/16/2024 Time: 16:20 Bed 19 Private MD: Diagnosis: Dizziness and giddiness;Vertigo Presentation: 03/16 16:38 Chief complaint: Patient states: Dizziness, "room spinning" for 2 days, recently dx w/ ph covid. Coronavirus screen: Vaccine status: Patient reports having had a previously documented Covid positive illness. March 11, 2024. Ebola Screen: No symptoms or risks identified at this time. Initial Sepsis Screen: Does the patient meet any 2 criteria? No. Patient's initial sepsis screen is negative. Does the patient have a suspected source of infection? No. Patient's initial sepsis screen is negative. Risk Assessment: Do you want to hurt yourself or someone else? Patient reports no desire to harm self or others. Onset of symptoms was March 16, 2024. 16:38 Method Of Arrival: Ambulatory ph 16:38 Acuity: MADONNA 3 ph Historical: - Allergies: 16:44 Lantus; ph 16:44 Tetanus Vaccines and Toxoid; ph - PMHx: 16:44 Anxiety; AVM; Depression; Diabetes - IDDM; GERD; Hyperlipidemia; Hypertension; Panic ph Attacks; - PSHx: 16:44 Cholecystectomy; right rotator cuff; ph - Immunization history:: Adult Immunizations unknown. - Infectious Disease History:: Denies. - Social history:: Smoking status: Patient denies any tobacco usage or history of. - Family history:: not pertinent. - Hospitalizations: : No recent hospitalization is reported. Screenin:11 [facility] ED Fall Risk Assessment (Adult) History of falling in the last 3 months, tm6 including since admission No falls in past 3 months (0 pts) Confusion or Disorientation No (0 pts) Intoxicated or Sedated No (0 pts) Impaired Gait No (0 pts) Mobility Assist Device Used No (0 pt) Altered Elimination No (0 pt) Score/Fall Risk Level 0 - 2 = Low Risk Oriented to surroundings, Maintained a safe environment, Educated pt \\T\\ family on fall prevention, incl call for assistance when getting out of bed. Abuse screen: Denies threats or abuse. Denies injuries from another. Nutritional screening: No deficits noted. Tuberculosis screening: No symptoms or risk factors identified. 19:58 Amarilis Swallow Protocol Exclusion Criteria: Exclusion Criteria Result: Proceed Brief tm6 Cognitive Screen What is your name? Normal, Where are you right now? Normal, What year is it? Normal. Oral Mechanism Examination Facial Symmetry: Normal, Motion: Normal, Lip Closure: Normal, Oral Mechanism Result: Normal. 3 oz Water Swallow Challenge: Pt able to drink all water without stopping, coughing, choking or throat clearing: Yes Result: PASS. Assessment: 19:11 General: Appears in no apparent distress. Behavior is calm, cooperative. Pain: Denies tm6 pain. Neuro: Level of Consciousness is awake, alert, obeys commands, Oriented to person, place, time, situation, Reports dizziness. Cardiovascular: Reports lightheadedness, Patient's skin is warm and dry. Rhythm is regular. Respiratory: Airway is patent Respiratory effort is even, unlabored, Respiratory pattern is regular, symmetrical. GI: Abdomen is round Reports nausea. : No signs and/or symptoms were reported regarding the genitourinary system. EENT: No signs and/or symptoms were reported regarding the EENT system. Derm: No signs and/or symptoms reported regarding the dermatologic system. Musculoskeletal: No signs and/or symptoms reported regarding the musculoskeletal system. Vital Signs: 16:38 BP 150 / 82; Pulse 91; Resp 18; Temp 97.8; Pulse Ox 99% on R/A; Weight 101.6 kg; Height ph 5 ft. 0 in. ; 19:15 BP 148 / 115; Pulse 85; Pulse Ox 100% on R/A; Pain 0/10; tm6 16:38 Body Mass Index 43.75 (101.60 kg, 152.4 cm) ph 19:15 Pain Scale: Adult tm6 ED Course: 16:21 Patient arrived in ED. rg4 16:37 Tomas Santos MD is Attending Physician. rn 16:44 Triage completed. ph 16:45 Arm band placed on Patient placed in waiting room, Patient notified of wait time. ph 17:00 Initial lab(s) drawn, by me, sent to lab. Missed attempt(s): 22 gauge in right bc6 antecubital area. 17:03 Radiology exam delayed due to lab results not completed at this time. (BUN/Creatinine). sj 17:03 Radiology exam delayed due to IV insertion attempt and/or patient not having sj appropriate IV at this time. 17:07 Missed attempt(s): 20 gauge in left antecubital area. bc6 18:00 CT Head Brain wo Cont In Process Unspecified. EDMS 18:58 Ishaan Cote MD is Hospitalizing Provider. rn 19:10 Alex Landry, RN is Primary Nurse. tm6 19:11 Patient has correct armband on for positive identification. Bed in low position. Call tm6 light in reach. Side rails up X 1. Provided Education on: use of call [place]. Client placed on continuous cardiac and pulse oximetry monitoring. NIBP monitoring applied. senior product development scientist on. Pulse ox on. NIBP on. Door closed. Noise minimized. Warm blanket given. Pillow given. 19:23 EKG done, by ED staff, reviewed by Tomas Santos MD. tm6 19:36 Inserted saline lock: 22 gauge in left forearm, using aseptic technique. tm6 22:42 No provider procedures requiring assistance completed. Patient admitted, IV remains in tm6 place. 03/17 00:00 Report received from LUCIANO Banuelos. vc1 Administered Medications: 03/16 17:15 Drug: Meclizine PO 50 mg PO once Route: PO; rs5 19:58 Drug: NS 0.9% IV 500 ml IV at bolus once Route: IV; Rate: bolus; Site: left forearm; tm6 19:59 Drug: Aspirin PO 81 mg PO once Route: PO; tm6 Medication: 19:11 VIS not applicable for this client. tm6 Outcome: 18:58 Decision to Hospitalize by Provider. rn 22:42 Admitted to ER Hold. Please see [facility] for further documentation. tm6 22:42 Condition: stable 22:42 Instructed on the need for admit, 03/17 11:28 Patient left the ED. ll1 Signatures: Dispatcher [employer] Carmela Self Roman, MD MD rn Hall, Patricia, RN RN ph Garcia, Rubi 4 Brielle Aguilera RN RN ll1 Yuko Eden RN RN vc1 Jefry Mathews RN RN rs5 Daxa Adams bc6 Alex Landry RN RN tm6
--- NOTE | 2024-03-16 19:19 | P.HP ---
Certification for Inpatient Patient admitted to: Observation With expected LOS: <2 Midnights Practitioner: I am a practitioner with admitting privileges, knowledge of patient current condition, hospital course, and medical plan of care. Services: Services provided to patient in accordance with Admission requirements found in Title 42 Section 412.3 of the Code of Federal Regulations Patient History Date of Service: 03/16/24 Reason for admission: Vertigo History of Present Illness: 58 yrs old Female with past medical history of anxiety, depression, diabetes, hypertension, hyperlipidemia, GERD, panic attacks, AVM, brought to ER with dizziness. Patient started having dizzy and feeling faint with a sense of spinning which has been going on since yesterday and has been progressively getting worse and was brought to ER. Patient denies any previous history of vertigo. Denies any chest pain or pressure shortness of breath. Denies any palpitations. Patient was recently diagnosed with COVID No fever or chills. Associated with some nausea. No head injury. Not focal neurologic weakness. Patient states that her eyes for a brief period of time and right side went dark which resolved after a few minutes yesterday Patient was assessed in the ER and was admitted for further management Allergies Tetanus Vaccines and Toxoid [Tetanus] Allergy (Verified 01/09/12 11:47) Hives/Rash Lantus U-100 Insu Allergy (Uncoded 04/17/18 06:14) Unknown Lantus U-100 Insuli Allergy (Uncoded 04/16/18 01:50) Unknown No Known Allergi Allergy (Uncoded 04/06/17 19:49) Unknown No Known Allergies Allergy (Uncoded 07/28/17 10:35) Unknown Home medications list reviewed: Yes Home Medications: Atenolol 50 mg BID 10/25/11 Metformin HCl 1,000 mg PO BID 10/25/11 Nexium 40 mg PO DAILY 10/25/11 Alprazolam [Xanax] 1 mg PO TID 03/11/18 Insulin Degludec [Tresiba Flextouch U-100] 68 unit SQ DAILY 03/11/18 Pregabalin [Lyrica] 50 mg PO DAILY 03/11/18 Trazodone [Desyrel] 50 mg PO BEDTIME 03/11/18 lisinopriL [Lisinopril] 20 mg PO DAILY 03/11/18 - Past Medical/Surgical History Diabetic: Yes Past Medical History: Reviewed- Non-Contributory -: DM -: HTN -: AVM -: hyperlipidemia Past Surgical History: Reviewed- Non-Contributory -: cholecystectomy -: tubal ligation -: rotater cuff repair - Social History Smoking Status: Never smoker Alcohol use: No CD- Drugs: No Review of Systems 10-point ROS is otherwise unremarkable Physical Examination - Vital Signs Temperature: 98.2 F Blood Pressure: 142/78 Pulse: 76 Respirations: 18 Pulse Ox (%): 93 - Physical Exam General: Alert, In no apparent distress, Oriented x3, Obese HEENT: Atraumatic, Normocephalic Neck: Supple, JVD not distended, No Thyromegaly Respiratory: Clear to auscultation bilaterally, Normal air movement Cardiovascular: Normal pulses, Regular rate/rhythm, Normal S1 S2 Capillary refill: <2 Seconds Gastrointestinal: Soft and benign, W/out hepatosplenomegaly Musculoskeletal: No clubbing, No swelling Integumentary: No rashes, No breakdown Neurological: Normal speech, Normal strength at 5/5 x4 extr, Cranial nerves 3-12 intact, Normal reflexes 2+ Lymphatics: No axilla or inguinal lymphadenopathy - Studies Laboratory Data (last 24 hrs) 03/16/24 03/16/24 03/16/24 17:10 17:10 17:10 WBC 5.00 Hgb 10.3 L Hct 31.6 L Plt Count 250 PT 10.6 INR 0.96 APTT 24.2 L Sodium 136 Potassium 3.7 BUN 14 Creatinine 0.97 Glucose 147 H Assessment and Plan - Problems (Diagnosis) (1) Vertigo Current Visit: Yes Status: Acute Plan: Vertigo To rule out posterior circulation CVA Will order MRI of the brain. PT OT evaluation Started on aspirin and statin and meclizine Monitor closely under telemetry Hypertension Antihypertensives titrated Continue home medications and titrate as needed Hyperlipidemia Continue statin Diabetes Insulin sliding scale Accu-Chek before every meal and at bedtime Anemia of chronic disease Monitor H&H closely No overt bleeding at this time Anxiety Continue home medications and titrate as needed GI/DVT prophylaxis Advanced directive full code Discharge Plan: Home Plan to discharge in: 48 Hours - Advance Directives Does patient have a Living Will: No Does patient have a Durable POA for Healthcare: No - Code Status/Comfort Care Code Status: Full Code Time Spent Managing Pts Care (In Minutes): 48
[2024-03-16] MEDS ORDERED: ONDANSETRON 4 MG/2 ML VIAL IV PRN (19:20)
[2024-03-16] MEDS ORDERED: ACETAMINOPHEN 325 MG TABLET PO PRN (19:20)
[2024-03-16] MEDS ORDERED: ASPIRIN 81 MG CHEWABLE TABLET ONE (19:44)
[2024-03-16] MEDS: ATORVASTATIN 40 MG TAB PO SCH (21:00)
[2024-03-16] MEDS: MECLIZINE HCL 12.5 MG TAB PO SCH (21:00)
[2024-03-16] MEDS: lisinopriL 20 MG TAB PO SCH (22:24)
[2024-03-16] MEDS: atenoloL 50 MG TAB PO SCH (22:24)
[2024-03-16] MEDS: carvediloL 25 MG TAB PO ONE (22:33)
[2024-03-16] MEDS: lisinopriL 20 MG TAB PO ONE (22:33)
[2024-03-16] MEDS ORDERED: D50W 25 GM/50 ML SYRINGE IV PRN (22:34)
[2024-03-16] MEDS ORDERED: ATORVASTATIN 40 MG TAB ONE (22:34)
[2024-03-16] MEDS ORDERED: GLUCAGON 1 MG/VIAL IM PRN (22:34)
[2024-03-16] MEDS ORDERED: carvediloL 6.25 MG TAB ONE (22:35)
[2024-03-16] MEDS ORDERED: lisinopriL 20 MG TAB ONE (22:35)
[2024-03-16] MEDS ORDERED: D10W 125 ML IV PRN (22:46)
[2024-03-16 22:51] VITALS: BMI 43.5
[2024-03-17] MEDS: INSULIN REGULAR (HUMAN) 100 UNIT/ML SQ SCH (07:30)
[2024-03-17] MEDS ORDERED: ASPIRIN EC 81 MG TAB PO ONE (08:07)
[2024-03-17] MEDS ORDERED: ENOXAPARIN 40 MG/0.4 ML SQ ONE (08:07)
[2024-03-17] MEDS ORDERED: MECLIZINE HCL 12.5 MG TAB ONE (08:07)
--- NOTE | 2024-03-17 08:32 | RAD REPORT ---
EXAM DESCRIPTION: MRI - Brain Wo Cont - 03/17/2024 7:54 am CLINICAL HISTORY: DIZZINESS COMPARISON: Head CT 03/16/2024 TECHNIQUE: Multiplanar multisequence MRI of the brain performed without IV contrast. FINDINGS: No evidence of acute infarct or other diffusion signal abnormality. No evidence of acute intracranial hemorrhage or abnormal extra-axial fluid collections. Ventricular caliber within normal for age. Midline structures are unremarkable. No significant white matter signal abnormalities. 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 Small draining vessel extending towards the tra nsverse sinus. No mass effect or midline shift. Major vascular flow voids are preserved. Mastoid air cells and paranasal sinuses are clear. IMPRESSION: No acute intracranial process. No evidence of ventriculomegaly or mass effect.
[2024-03-17] MEDS ORDERED: INSULIN REGULAR (HUMAN) 100 UNIT/ML ONE (08:34)
[2024-03-17] MEDS: ENOXAPARIN 40 MG/0.4 ML SQ SCH (08:48)
[2024-03-17] MEDS: ASPIRIN EC 81 MG TAB PO SCH (08:48)
[2024-03-17] MEDS ORDERED: ALPRAZOLAM 1 MG TABLET PO SCH (09:00)
[2024-03-17] MEDS ORDERED: HOME MED 1 EA UNK (Pregabalin [Lyrica] 25 MG Capsule) PO SCH (09:00)
--- NOTE | 2024-03-17 10:08 | P.PN ---
Date of Service: 03/17/24 Review of Systems 10-point ROS is otherwise unremarkable Physical Examination - Vital Signs reviewed - Physical Exam General: Alert, In no apparent distress, Oriented x3, Obese HEENT: Atraumatic, Normocephalic Neck: Supple, JVD not distended, No Thyromegaly Respiratory: Clear to auscultation bilaterally, Normal air movement Cardiovascular: Normal pulses, Regular rate/rhythm, Normal S1 S2 Capillary refill: <2 Seconds Gastrointestinal: Soft and benign, W/out hepatosplenomegaly Musculoskeletal: No clubbing, No swelling Integumentary: No rashes, No breakdown Neurological: Normal speech, Normal strength at 5/5 x4 extr, Cranial nerves 3-12 intact, Normal reflexes 2+ Lymphatics: No axilla or inguinal lymphadenopathy Assessment and Plan - Problems (Diagnosis) Vertigo To rule out posterior circulation CVA Will order MRI of the brain. PT OT evaluation Started on aspirin and statin and meclizine Monitor closely under telemetry Hypertension Antihypertensives titrated Continue home medications and titrate as needed Hyperlipidemia Continue statin Diabetes Insulin sliding scale Accu-Chek before every meal and at bedtime Anemia of chronic disease Monitor H&H closely No overt bleeding at this time Anxiety Continue home medications and titrate as needed GI/DVT prophylaxis Advanced directive full code Discharge Plan: Home Plan to discharge in: 48 Hours - Advance Directives Does patient have a Living Will: No Does patient have a Durable POA for Healthcare: No
--- NOTE | 2024-03-17 10:47 | P.DS ---
Admission Date: 03/16/24 Discharge Date: 03/17/24 Disposition: ROUTINE DISCHARGE Discharge Condition: GOOD Reason for Admission: Vertigo Brief History of Present Illness: 58 yrs old Female with past medical history of anxiety, depression, diabetes, hypertension, hyperlipidemia, GERD, panic attacks, AVM, brought to ER with dizziness. Patient started having dizzy and feeling faint with a sense of spinning which has been going on since yesterday and has been progressively getting worse and was brought to ER. Patient denies any previous history of vertigo. Denies any chest pain or pressure shortness of breath. Denies any palpitations. Patient was recently diagnosed with COVID No fever or chills. Associated with some nausea. No head injury. Not focal neurologic weakness. Patient states that her eyes for a brief period of time and right side went dark which resolved after a few minutes yesterday Patient was assessed in the ER and was admitted for further management - Physical Exam General: Alert, In no apparent distress, Oriented x3, Obese HEENT: Atraumatic, Normocephalic Neck: Supple, JVD not distended, No Thyromegaly Respiratory: Clear to auscultation bilaterally, Normal air movement Cardiovascular: Normal pulses, Regular rate/rhythm, Normal S1 S2 Capillary refill: <2 Seconds Gastrointestinal: Soft and benign, W/out hepatosplenomegaly Musculoskeletal: No clubbing, No swelling Integumentary: No rashes, No breakdown Neurological: Normal speech, Normal strength at 5/5 x4 extr, Cranial nerves 3-12 intact, Normal reflexes 2+ Lymphatics: No axilla or inguinal lymphadenopathy Hospital Course: 58 with past medical history of hypertension was noted to have dizziness. Rep orts recent diagnosis with COVID, intermittent hypertension hold as needed blood pressure medication. Condition improved with resumption of blood pressure medication. Patient tolerating diet, stable for discharge to home with follow- up appointment with primary care physician. PROBLEM: Vertigo-improved, resolved new prescription Meclizine, take 3 x day as needed vertigo Diagnosis of COVID symptoms resolved-instructed to stay hydrated HTN-resume antihypertensives Hyperlipidemia resume home meds Rad/Lab/Micro: CT head negative acute abnormality RI of the brain negative for acute abnormality Continue home medicines as previously prescribed GOAL: Clear understanding of disease process INSTRUCTIONS: Physician Discharge Instructions: -Follow-up with PCP in 1 to 2 weeks -Please call Dr. Ochoa at [phone] if any questions regarding hospital stay -Please call nursing station at [phone] if any nursing or medication questions -Return to the emergency room if symptoms worsen Diet: ADA, low sodium Activity: Fall precautions Vital Signs/Physical Exam: Temp Pulse Resp BP Pulse Ox 97.2 F 84 14 122/70 100 03/17/24 04:00 03/17/24 04:00 03/17/24 04:00 03/17/24 04:00 03/17/24 04:00 Laboratory Data at Discharge: WBC 5.00 thou/uL (4.3-10.9) 03/16/24 17:10 Hgb 10.3 g/dL (12.0-15.0) L 03/16/24 17:10 Hct 31.6 % (36.0-45.0) L 03/16/24 17:10 Plt Count 250 thou/uL (152-406) 03/16/24 17:10 PT 10.6 SECONDS (9.4-12.5) 03/16/24 17:10 INR 0.96 03/16/24 17:10 APTT 24.2 SECONDS (24.3-36.9) L 03/16/24 17:10 Sodium 136 mEq/L (136-145) 03/16/24 17:10 Potassium 3.7 mEq/L (3.5-5.1) 03/16/24 17:10 BUN 14 mg/dL (7-18) 03/16/24 17:10 Creatinine 0.97 mg/dL (0.55-1.02) 03/16/24 17:10 Glucose 147 mg/dL (74-106) H 03/16/24 17:10 Home Medications: Atenolol 50 mg BID 10/25/11 Metformin HCl 1,000 mg PO BID 10/25/11 Nexium 40 mg PO DAILY 10/25/11 Alprazolam [Xanax] 1 mg PO TID 03/11/18 Insulin Degludec [Tresiba Flextouch U-100] 68 unit SQ DAILY 03/11/18 Pregabalin [Lyrica] 50 mg PO DAILY 03/11/18 Trazodone [Desyrel] 50 mg PO BEDTIME 06/19/18 lisinopriL [Lisinopril] 20 mg PO DAILY 03/11/18 Meclizine HCl 25 mg PO TID PRN 30 Days #30 tab 03/17/24 New Medications: Meclizine HCl 25 mg PO TID PRN 30 Days #30 tab PRN Reason: vertigo Physician Discharge Instructions: 58 with past medical history of hypertension was noted to have dizziness. Reports recent diagnosis with COVID, intermittent hypertension hold as needed blood pressure medication. Condition improved with resumption of blood pressure medication. Patient tolerating diet, stable for discharge to home with follow- up appointment with primary care physician. PROBLEM: Vertigo-improved, resolved new prescription Meclizine, take 3 x day as needed vertigo Diagnosis of COVID symptoms resolved-instructed to stay hydrated HTN-resume antihypertensives Hyperlipidemia resume home meds Rad/Lab/Micro: CT head negative acute abnormality RI of the brain negative for acute abnormality Continue home medicines as previously prescribed GOAL: Clear understanding of disease process INSTRUCTIONS: Physician Discharge Instructions: -Follow-up with PCP in 1 to 2 weeks -Please call Dr. Ochoa at [phone] if any questions regarding hospital stay -Please call nursing station at [phone] if any nursing or medication questions -Return to the emergency room if symptoms worsen Diet: ADA, low sodium Activity: Fall precautions Diet: AHA Activity: Fall precautions Followup: Adamaris Lynne MD [Primary Care Provider] - Time spent managing pt's care (in minutes): 55
[2024-03-17 11:26] VITALS: TEMP 97.8
[2024-03-17 12:33] VITALS: BP 148/115; O2SAT 100
[2024-03-17] MEDS ORDERED: TRAZODONE 50 MG TABLET PO SCH (21:00)
--- NOTE | 2024-03-18 13:54 | EKG ---
Test Date: 2024-03-16 Test Time: 19:21:25 Wheel Borer: [place] MEASUREMENT RESULTS: Intervals: Rate: 86 LA: 190 QRSD: 84 QT: 384 QTc: 459 [place]: P: 68 LA: 190 QRS: -2 T: 37 INTERPRETIVE STATEMENTS: Normal sinus rhythm Minimal voltage criteria for LVH, may be normal variant Borderline ECG Compared to ECG 03/13/2024 02:34:32 Left ventricular hypertrophy now present Sinus tachycardia no longer present Electronically Signed On 03-18-24 13:50:00 CDT by Jabari Castillo
== END 2024-03-17 11:27 | disposition home or self-care (01) ==
LOC: ER 16:20 → ERHOLD 19:20
PROVIDERS: ADMIT Family Medicine; ATTEND Hospitalist
DX: R42 Dizziness and giddiness (principal); F41.9 Anxiety disorder, unspecified; F32.A Depression, unspecified; E11.9 Type 2 diabetes mellitus without complications; I10 Essential (primary) hypertension; E78.5 Hyperlipidemia, unspecified; K21.9 Gastro-esophageal reflux disease without esophagitis; F41.0 Panic disorder [episodic paroxysmal anxiety]; Q27.30 Arteriovenous malformation, site unspecified; D63.1 Anemia in chronic kidney disease; Z86.16 Personal history of COVID-19; Z88.7 Allergy status to serum and vaccine
CPT/HCPCS: 93005; 85025; 80048; 36415; 85610; 82947 ×2; 85730; 84484 ×2; 70450; 70551; 94760; J8597 ×3; J1650; J7040 ×2; G0378

== ENCOUNTER 2024-05-07 01:51 | Emergency (ER) | payer OTHER ==
[2024-05-07] MEDS ORDERED: ONDANSETRON 4 MG/2 ML VIAL ONE (02:49)
[2024-05-07] MEDS ORDERED: MORPHINE 4 MG/ML SYR ONE (02:49)
[2024-05-07] MEDS ORDERED: NA CHLORIDE 0.9% 1,000 ML ONE (02:50)
[2024-05-07 03:19] LABS: Albumin 3.3 g/dL (3.4-5.0); Albumin/Globulin Ratio 0.7 (1.1-1.8); Anion Gap 13.8 mEq/L (5.0-15.0); Bilirubin Total 0.2 mg/dL (0.2-1.0); Globulin 4.5 g/dL (2.3-3.5); Potassium 3.8 mEq/L (3.5-5.1); Protein, Total 7.8 g/dL (6.4-8.2)
[2024-05-07 03:27] LABS: Absolute Basophils 0.1 K/uL (0-0.5); Absolute Eosinophils 0.2 K/uL (0-0.5); Absolute Lymphocytes (CBC) 2.1 K/uL (0.7-4.9); Absolute Monocytes 0.4 K/uL (0.1-1.3); Absolute Neutrophil 4.4 K/uL (1.8-8.0); Basophils % 0.8 % (0-1.3); Eosinophils % 3.2 % (0-4.4); Hematocrit 32.3 % (36.0-45.0); Hemoglobin 10.4 g/dL (12.0-15.0); Lymphocytes % 29.3 % (15.3-44.8); MCH 24.8 pg (27.0-35.0); MCHC 32.1 g/dL (32.0-36.0); MPV 8.4 fL (7.6-11.3); Monocytes % 5.3 % (3.3-12.3); Neutrophils % 61.4 % (41.7-73.7); Platelets 264 thou/uL (152-406); RBC Red Blood Cell Count 4.19 M/uL (3.86-4.86); Red Cell Distribution Width 16.5 % (12.1-15.2)
[2024-05-07 03:30] LABS: Renal Epithelial <5 /HPF (None Seen); Specific Gravity 1.012 (1.005-1.030); Sqamous Epithelial <5 /HPF (None Seen); Urine Bacteria <20 /HPF (<20); Urine Bilirubin NEGATIVE (Negative); Urine Blood Negative (Negative); Urine Clarity Clear (Clear); Urine Color Colorless (Yellow); Urine Culture Reflex Order NOT NEEDED; Urine Glucose NEGATIVE (Negative); Urine Ketones NEGATIVE (Negative); Urine Microscopic Reflex YN ORDER UMIC; Urine Mucus Slight /HPF (None Seen); Urine Nitrite NEGATIVE (Negative); Urine Protein NEGATIVE (Negative); Urine RBC None Seen /HPF (None Seen); Urine Urobilinogen Normal (Normal); Urine pH 5.5 (5.0-7.0)
--- NOTE | 2024-05-07 06:01 | EDPHYS ---
Physician Documentation [facility] Name: Stephanie Noel Age: 59 yrs Sex: Female : 1965 Arrival Date: 05/07/2024 Time: 01:51 Bed 8 Private MD: ED Physician Gautam Bell HPI: 05/07 05:46 This 59 yrs old Black Female presents to ER via Ambulatory with complaints of Pain With sp4 Urination, Abdominal Pain, High Blood Pressure. 22:14 59-year-old black female presents with complaint of pain with urination and lower sp4 abdominal pain.. Historical: - Allergies: 02:10 Lantus; vc1 02:10 Tetanus Vaccines and Toxoid; vc1 - PMHx: 02:10 Anxiety; AVM; GERD; Depression; Diabetes - IDDM; Hyperlipidemia; Hypertension; Panic vc1 Attacks; - PSHx: 02:10 Cholecystectomy; right rotator cuff; vc1 - Immunization history:: Client reports having NOT received the Covid vaccine. - Infectious Disease History:: Denies. - Social history:: Smoking status: Patient denies any tobacco usage or history of. - Family history:: not pertinent. ROS: 22:14 Constitutional: Negative for fever, chills, and weight loss, pain with urination and sp4 lower abdominal pain. 22:14 All other systems are negative, Exam: 22:14 Constitutional: This is a well developed, well nourished patient who is awake, alert, sp4 and in no acute distress. Head/Face: Normocephalic, atraumatic. Eyes: Pupils equal round and reactive to light, extra-ocular motions intact. Lids and lashes normal. Conjunctiva and sclera are not injected. Cornea within normal limits. Periorbital areas with no swelling, redness, or edema. ENT: Nares patent. No nasal discharge, no septal abnormalities noted. Tympanic membranes are normal and external auditory canals are clear. Oropharynx with no redness, swelling, or masses, exudates, or evidence of obstruction, uvula midline. Mucous membranes moist. Neck: Trachea midline, no thyromegaly or masses palpated, and no cervical lymphadenopathy. Supple, full range of motion without nuchal rigidity, or vertebral point tenderness. Chest/axilla: Normal chest wall appearance and motion. Nontender with no deformity. No lesions are appreciated. Cardiovascular: Regular rate and rhythm with a normal S1 and S2. No gallops, murmurs, or rubs. Normal PMI, no JVD. No pulse deficits. Respiratory: Lungs have equal breath sounds bilaterally, clear to auscultation and percussion. No rales, rhonchi or wheezes noted. No increased work of breathing, no retractions or nasal flaring. Abdomen/GI: Soft, with normal bowel sounds. No distension or tympany. No guarding or rebound. No evidence of tenderness throughout. Back: No spinal tenderness. No costovertebral tenderness. Skin: Warm, dry with normal turgor. Normal color with no rashes, no lesions, and no evidence of cellulitis. MS/ Extremity: Pulses equal, no cyanosis. Neurovascular intact. Full, normal range of motion. Neuro: Awake and alert, GCS 15, oriented to person, place, time, and situation. Cranial nerves II-XII grossly intact. Motor strength 5/5 in all extremities. Sensory grossly intact. Psych: Awake, alert, with orientation to person, place and time. Behavior, mood, and affect are within normal limits Vital Signs: 02:13 BP 173 / 82; Pulse 98; Resp 15; Temp 99; Pulse Ox 97% ; Weight 100.24 kg; Height 5 ft. vc1 0 in. ; Pain 9/10; 03:30 BP 108 / 81; Pulse 61; Resp 17; Pulse Ox 99% on R/A; rg5 04:25 BP 116 / 89; Pulse 57; Resp 17; Pulse Ox 100% on R/A; Pain 6/10; rg5 05:36 BP 135 / 63; Pulse 100; Resp 17; rg5 02:13 Body Mass Index 43.16 (100.24 kg, 152.4 cm) vc1 02:13 Pain Scale: Adult vc1 04:25 Pain Scale: Adult rg5 [place] Coma Score: 22:14 Eye Response: spontaneous(4). Motor Response: obeys commands(6). Verbal Response: sp4 oriented(5). Total: 15. MDM: 02:19 Patient medically screened. sp4 05:59 ED course: CLINICAL HISTORY: Abdominal pain. COMPARISON: None. TECHNIQUE: CTABDOMEN sp4 PELVIS WITHOUT IV CONTRAST on 05/07/2024 2:19 AM CDT This exam was performed according to our departmental dose-optimization program, which includes automated exposure control, adjustment of the mA and/or kV according to patient size and/or use of iterative reconstruction technique. FINDINGS: Lower lungs are clear. Abdomen: The liver is fatty in attenuation and is enlarged. There is no biliary dilatation. Cholecystectomy was performed. The pancreas and spleen are normal in appearance. The adrenal glands and kidneys are unremarkable. Abdominal aorta is normal in course and caliber without aneurysm. There is no free air. There is no retroperitoneal adenopathy. Pelvis: There are infiltrative changes throughout the central small bowel mesentery. Urinary bladder is unremarkable. There is no free fluid. Uterus is normal in size. Appendix is not clearly seen. Skeleton: There are no acute osseous findings. No suspicious bony lesions. IMPRESSION: Nonspecific central small bowel mesenteric infiltrative changes. This could represent mesenteric panniculitis. . 22:14 Differential diagnosis: hypertensive crisis, Malignant HTN. Data reviewed: vital signs, sp4 nurses notes, old medical records, lab test result(s), radiologic studies, CT scan. Consideration of Admission/Observation Escalation of care including admission/observation considered. ED course: She does not reveal any emergent findings. Possible mesenteric panniculitis however radiologist is not sure. Patient prescribed as needed pain medicine. Patient is feeling better.. 05/07 02:19 Order name: CBC with Diff; Complete Time: 05:45 sp4 05/07 02:19 Order name: CMP; Complete Time: 05:45 sp4 05/07 02:19 Order name: Lipase; Complete Time: 05:45 sp4 05/07 02:19 Order name: Urinalysis w/ reflexes; Complete Time: 05:45 sp4 05/07 03:50 Order name: Abdomen EDMS 05/07 02:19 Order name: IV Saline Lock; Complete Time: 03:02 sp4 05/07 02:19 Order name: Labs collected and sent; Complete Time: 03:02 sp4 Administered Medications: 03:01 Drug: NS 0.9% IV 1000 ml IV at 1 bolus Per protocol; 1000 mL bolus Route: IV; Rate: 1 rg5 bolus; Site: right forearm; 03:02 Drug: morphine IVP or IV 4 mg IVP once over 4 mins Route: IVP; Infused Over: 4 mins; rg5 Site: right forearm; 03:02 Drug: Ondansetron IVP 4 mg IVP once; over 2 minutes Route: IVP; Site: right forearm; rg5 06:00 Drug: Ibuprofen PO 800 mg PO once Route: PO; rg5 Disposition Summary: 05/07/24 06:00 Discharge Ordered Notes: Location: Home sp4 Problem: new sp4 Symptoms: have improved sp4 Condition: Stable sp4 Diagnosis - Acute mesenteric panniculitis, acute lower abdominal pain sp4 Followup: sp4 - With: Private Physician - When: 7 - 10 days - Reason: Recheck today's complaints Discharge Instructions: - Discharge Summary Sheet sp4 - Mesenteric Adenitis, Adult sp4 Forms: - Patient Portal Instructions sp4 Prescriptions: - Ibuprofen 800 mg Oral Tablet - take 1 tablet ORAL route every 8 hours As needed take with food; 30 tablet; sp4 Refills: 0, Product Selection Permitted - Tramadol 50 mg Oral tablet - take 1 tablet ORAL route every 8 hours as needed; 20 tablet; Refills: 0, sp4 Product Selection Permitted - promethazine 25 mg Oral tablet - take 1 tablet ORAL route every 8 hours As needed; 30 tablet; Refills: 0, sp4 Product Selection Permitted Signatures: Dispatcher [employer] EDMS Yuko Eden RN RN vc1 Gautam Bell MD MD sp4 Sudhakar Martínez RN RN rg5 Corrections: (The following items were deleted from the chart) 02:19 02:19 CBC+H.LAB.BRZ ordered. EDMS EDMS 02:19 02:19 COMPREHENSIVE METABOLIC PANEL+C.LAB.BRZ ordered. EDMS EDMS 02:19 02:19 LIPASE+C.LAB.BRZ ordered. EDMS EDMS 02:19 02:19 Urinalysis+U.LAB.BRZ ordered. EDMS EDMS 02:19 02:19 Abdomen Pelvis W Con+CT.RAD.BRZ ordered. EDMS EDMS
--- NOTE | 2024-05-07 06:01 | ER ---
Nurse's Notes [facility] Name: Stephanie Noel Age: 59 yrs Sex: Female : 1965 Arrival Date: 05/07/2024 Time: 01:51 Bed 8 Private MD: Diagnosis: Acute mesenteric panniculitis, acute lower abdominal pain Presentation: 05/07 02:08 Chief complaint: Patient states: burning and pressure with urination since Saturday. vc1 Around 0130 this morning my stomach started cramping, I was nauseous and had some pain in the back of my head. Coronavirus screen: Client denies travel out of the [place] in the last 14 days. At this time, the client does not indicate any symptoms associated with coronavirus-19. Ebola Screen: Patient negative for fever greater than or equal to 101.5 degrees Fahrenheit, and additional compatible Ebola Virus Disease symptoms Patient denies exposure to infectious person. Patient denies travel to an Ebola-affected area in the 21 days before illness onset. No symptoms or risks identified at this time. Initial Sepsis Screen: Does the patient meet any 2 criteria? No. Patient's initial sepsis screen is negative. Does the patient have a suspected source of infection? No. Patient's initial sepsis screen is negative. Risk Assessment: Do you want to hurt yourself or someone else? Patient reports no desire to harm self or others. Onset of symptoms was May 04, 2024. 02:08 Method Of Arrival: Ambulatory vc1 02:08 Acuity: MADONNA 3 vc1 Triage Assessment: 02:11 General: Appears in no apparent distress. uncomfortable, Behavior is calm, cooperative, vc1 appropriate for age. Pain: Complains of pain in burning with urination, pain in back of head, and epigastric pain Pain currently is 9 out of 10 on a pain scale. Quality of pain is described as pressure, sharp. EENT: No deficits noted. No signs and/or symptoms were reported regarding the EENT system. Neuro: Reports headache occipital area. Cardiovascular: No deficits noted. Respiratory: Airway is patent Respiratory effort is even, unlabored, Respiratory pattern is regular, symmetrical, Breath sounds are clear. GI: Reports epigastric pain, nausea, Pain is 9 out of 10 on a pain scale. : Reports burning with urination, since saturday. Derm: Skin is intact, is healthy with good turgor, Skin is dry, Skin is normal, Skin temperature is warm. Musculoskeletal: No deficits noted. No signs and/or symptoms reported regarding the musculoskeletal system. Historical: - Allergies: 02:10 Lantus; vc1 02:10 Tetanus Vaccines and Toxoid; vc1 - PMHx: 02:10 Anxiety; AVM; GERD; Depression; Diabetes - IDDM; Hyperlipidemia; Hypertension; Panic vc1 Attacks; - PSHx: 02:10 Cholecystectomy; right rotator cuff; vc1 - Immunization history:: Client reports having NOT received the Covid vaccine. - Infectious Disease History:: Denies. - Social history:: Smoking status: Patient denies any tobacco usage or history of. - Family history:: not pertinent. Screenin:13 [facility] ED Fall Risk Assessment (Adult) History of falling in the last 3 months, vc1 including since admission No falls in past 3 months (0 pts) Confusion or Disorientation No (0 pts) Intoxicated or Sedated No (0 pts) Impaired Gait No (0 pts) Mobility Assist Device Used No (0 pt) Altered Elimination No (0 pt) Score/Fall Risk Level 0 - 2 = Low Risk Oriented to surroundings, Maintained a safe environment, Educated pt \T\ family on fall prevention, incl call for assistance when getting out of bed. Abuse screen: Denies threats or abuse. Nutritional screening: No deficits noted. Tuberculosis screening: No symptoms or risk factors identified. Assessment: 02:13 GI: Bowel sounds present X 4 quads. Abd is soft and non tender Reports epigastric pain, vc1 nausea. 03:30 Reassessment: No changes from previously documented assessment. Patient and/or family rg5 updated on plan of care and expected duration. Pain level reassessed. 04:25 Reassessment: Patient and/or family updated on plan of care and expected duration. Pain rg5 level reassessed. Patient is alert, oriented x 3, equal unlabored respirations, skin warm/dry/pink. Patient states feeling better. Vital Signs: 02:13 BP 173 / 82; Pulse 98; Resp 15; Temp 99; Pulse Ox 97% ; Weight 100.24 kg; Height 5 ft. vc1 0 in. ; Pain 9/10; 03:30 BP 108 / 81; Pulse 61; Resp 17; Pulse Ox 99% on R/A; rg5 04:25 BP 116 / 89; Pulse 57; Resp 17; Pulse Ox 100% on R/A; Pain 6/10; rg5 05:36 BP 135 / 63; Pulse 100; Resp 17; rg5 02:13 Body Mass Index 43.16 (100.24 kg, 152.4 cm) vc1 02:13 Pain Scale: Adult vc1 04:25 Pain Scale: Adult rg5 [place] Coma Score: 22:14 Eye Response: spontaneous(4). Motor Response: obeys commands(6). Verbal Response: sp4 oriented(5). Total: 15. ED Course: 01:57 Patient arrived in ED. [id number] 02:10 Triage completed. vc1 02:11 Arm band placed on right wrist. vc1 02:15 Bed in low position. Call light in reach. Side rails up X 1. rg5 02:18 Gautam Bell MD is Attending Physician. sp4 02:55 Inserted saline lock: 22 gauge in right forearm, using aseptic technique. Blood oe collected. Flushed with 10 mL NS. 03:50 Abdomen In Process Unspecified. EDMS 04:19 Sudhakar Martínez, LUCIANO is Primary Nurse. rg5 06:00 Provided Education on: post er care. rg5 06:25 No provider procedures requiring assistance completed. rg5 06:26 IV discontinued, intact, bleeding controlled, No redness/swelling at site. Pressure rg5 dressing applied. Administered Medications: 03:01 Drug: NS 0.9% IV 1000 ml IV at 1 bolus Per protocol; 1000 mL bolus Route: IV; Rate: 1 rg5 bolus; Site: right forearm; 03:02 Drug: morphine IVP or IV 4 mg IVP once over 4 mins Route: IVP; Infused Over: 4 mins; rg5 Site: right forearm; 03:02 Drug: Ondansetron IVP 4 mg IVP once; over 2 minutes Route: IVP; Site: right forearm; rg5 06:00 Drug: Ibuprofen PO 800 mg PO once Route: PO; rg5 Medication: 02:13 VIS not applicable for this client. vc1 Outcome: 06:00 Discharge ordered by . sp4 06:25 Discharged to home ambulatory, rg5 06:25 Condition: stable 06:25 Discharge instructions given to patient, Instructed on discharge instructions, follow up and referral plans. Demonstrated understanding of instructions, follow-up care, medications, Prescriptions given X 3, 06:27 Patient left the ED. rg5 Signatures: Dispatcher [employer] EDMS Cliff Mccarty Jennifer jj6 Yuko Eden, RN RN vc1 Gautam eBll MD MD sp4 Sudhakar Martínez RN RN rg5
[2024-05-07] MEDS ORDERED: IBUPROFEN 400 MG TAB ONE (06:19)
[2024-05-07 06:53] VITALS: TEMP 99
[2024-05-07 07:05] VITALS: O2SAT 100
[2024-05-07 07:06] VITALS: BP 135/63
--- NOTE | 2024-05-07 12:04 | RAD REPORT ---
EXAM DESCRIPTION: CT - Abdomen Pelvis Wo Contrast - 05/07/2024 3:47 am CLINICAL HISTORY: Abdominal pain. COMPARISON: None. TECHNIQUE: CT ABDOMEN PELVIS WITHOUT IV CONTRAST on 05/07/2024 2:19 AM CDT This exam was performed according to our departmental dose-optimization program, which includes autom ated exposure control, adjustment of the mA and/or kV according to patient size and/or use of iterati ve reconstruction technique. FINDINGS: Lower lungs are clear. Abdomen: The liver is fatty in attenuation and is enlarged. There is no biliary dilatation. Cholecyst ectomy was performed. The pancreas and spleen are normal in appearance. The adrenal glands and kidney s are unremarkable. Abdominal aorta is normal in course and caliber without aneurysm. There is no free air. There is no r etroperitoneal adenopathy. Pelvis: There are infiltrative changes throughout the central small bowel mesentery. Urinary bladder is unremarkable. There is no free fluid. Uterus is normal in size. Appendix is not clearly seen. Skeleton: There are no acute osseous findings. No suspicious bony lesions. IMPRESSION: Nonspecific central small bowel mesenteric infiltrative changes. This could represent me senteric panniculitis. Electronically signed by: Jurgen Diego MD 05/07/2024 05:20 AM CDT RP Due to temporary technical issues with the PACS/Fluency reporting system, reports are being signed by the in house radiologist without review as a courtesy to ensure prompt reporting. The interpreting r adiologist is fully responsible for the content of the report.
== END 2024-05-07 06:27 | disposition home or self-care (01) ==
LOC: ER 01:51
DX: K65.4 Sclerosing mesenteritis (principal); R10.30 Lower abdominal pain, unspecified; I10 Essential (primary) hypertension; E11.9 Type 2 diabetes mellitus without complications; E78.5 Hyperlipidemia, unspecified; K21.9 Gastro-esophageal reflux disease without esophagitis; Z79.899 Other long term (current) drug therapy; Z88.7 Allergy status to serum and vaccine
CPT/HCPCS: 85025; 81001; 36415; 83690; 80053; 74176; 96375; 96374; 99284; J2405; J7030

== ENCOUNTER 2024-10-06 10:15 | Emergency (ER) | payer OTHER ==
[2024-10-06 11:09] LABS: Absolute Basophils 0.1 K/uL (0-0.5); Absolute Eosinophils 0.2 K/uL (0-0.5); Absolute Monocytes 0.3 K/uL (0.1-1.3); Absolute Neutrophil 4.5 K/uL (1.8-8.0); Basophils % 0.8 % (0-1.3); Eosinophils % 3.2 % (0-4.4); Hematocrit 33.6 % (36.0-45.0); Hemoglobin 10.8 g/dL (12.0-15.0); Lymphocytes % 27.9 % (15.3-44.8); MCH 24.3 pg (27.0-35.0); MCHC 32.1 g/dL (32.0-36.0); MCV 75.6 fL (80-100); MPV 8.1 fL (7.6-11.3); Monocytes % 4.3 % (3.3-12.3); Neutrophils % 63.8 % (41.7-73.7); Nucleated Red Blood Cells % 0.1 % (0-0); Platelets 323 thou/uL (152-406); RBC Red Blood Cell Count 4.44 M/uL (3.86-4.86); Red Cell Distribution Width 16.1 % (12.1-15.2)
[2024-10-06 11:27] LABS: ALT/SGPT 18 U/L (13-56); Albumin 3.5 g/dL (3.4-5.0); Albumin/Globulin Ratio 0.8 (1.1-1.8); Alkaline Phosphatase 51 U/L (45-117); Anion Gap 9.2 mEq/L (5.0-15.0); BUN Blood Urea Nitrogen 12 mg/dL (7-18); Bicarbonate 28 mEq/L (21-32); Bilirubin Total 0.3 mg/dL (0.2-1.0); Globulin 4.5 g/dL (2.3-3.5); Glomerular Filtration Rate 77 ml/min (=/>90); Glucose Level 186 mg/dL (74-106); Potassium 4.2 mEq/L (3.5-5.1); Sodium Level 137 mEq/L (136-145); Troponin High Sensitivity 3.5 pg/mL (<58.9)
[2024-10-06 11:28] LABS: AST/SGOT < 10 U/L (15-37); Bilirubin Direct < 0.2 mg/dL (0-0.2); Bilirubin Indirect, Calculated 0.1 mg/dL (0.2-0.8)
[2024-10-06] MEDS ORDERED: ONDANSETRON 4 MG/2 ML VIAL ONE (11:33)
--- NOTE | 2024-10-06 12:22 | RAD REPORT ---
EXAM: CT brain without contrast HISTORY: pain COMPARISON: 03/16/2024 TECHNIQUE: Multiple contiguous axial images were obtained and a CT of the brain without contrast. Sag ittal and coronal reformats were performed. One or more of the following dose reduction techniques were used: Automated exposure control, adjust ment of the mA and/or kV according to patient size, and/or iterative reconstruction. FINDINGS: No evidence of hydrocephalus, intracranial hemorrhage, or extra-axial fluid collection. The brain is normal in morphology. No evidence of midline shift or areas of brain edema. The calvarium is intact. The visualized paranasal sinuses and mastoid air cells are essentially clear . IMPRESSION: No evidence of acute intracranial abnormality.
--- NOTE | 2024-10-06 12:34 | RAD REPORT ---
EXAM: CTA of the chest, abdomen and pelvis HISTORY: Chest pain and back pain pain COMPARISON: None TECHNIQUE: Multiple contiguous axial images were obtained a CTA of the chest and abdomen with contras t per aortic dissection protocol. This involves 3D reconstructions, MIPs, volume rendered images and/or shaded surface rendering. One or more of the following dose reduction techniques were used: Au tomated exposure control, adjustment of the mA and/or kV according to patient size, and/or iterative reconstruction. Unless otherwise specified, incidental findings do not require dedicated im aging follow-up. Sagittal and coronal 3-D MIP reformats were performed. FINDINGS: PULMONARY ARTERIES: Normal in caliber without filling defects to suggest pulmonary emboli. ASCENDING THORACIC AORTA: Normal caliber without evidence of dissection or aneurysmal dilatation. DESCENDING THORACIC AORTA: Normal caliber without evidence of dissection or aneurysmal dilatation. ABDOMINAL AORTA: Normal caliber without evidence of dissection or aneurysmal dilatation. CELIAC TRUNK: Patent. SMA: Patent ASHER: Patent RENAL ARTERIES: Bilateral single renal arteries without significant atherosclerotic disease. MEDIASTINUM: No hilar or mediastinal lymphadenopathy. LUNGS: No focal infiltrates or masses. PLEURAL SPACE: No pleural effusion or pneumothorax. LIVER: Prominent fatty liver.. Cholecystectomy clips. SPLEEN: Unremarkable. PANCREAS: Unremarkable. KIDNEYS: Unremarkable. ADRENALS: Unremarkable. BOWEL: Unremarkable. Nonvisualized appendix. Moderate stool retained throughout the colon. RETROPERITONEUM: No lymphadenopathy. BONES: Facet arthrosis bilaterally lumbosacral spine. ADDITIONAL FINDINGS: IMPRESSION: No evidence of thoracic or abdominal aortic aneurysm or dissection. Fatty liver.
--- NOTE | 2024-10-06 13:30 | ER ---
Nurse's Notes [facility] Name: Stephanie Noel Age: 59 yrs Sex: Female : 1965 Arrival Date: 10/06/2024 Time: 10:15 Bed 11 Private MD: Diagnosis: Headache Presentation: 10/06 10:32 Chief complaint: Chief complaint: Patient states: Blurred vision onset 3 days ago. Pt cm10 also reports pain to her head and also reports elevated blood pressure. Pt also reports chest tightness to the center of her chest and dizziness. Coronavirus screen: Client denies travel out of the [place] in the last 14 days. Ebola Screen: Patient denies travel to an Ebola-affected area in the 21 days before illness onset. Initial Sepsis Screen: Does the patient meet any 2 criteria? HR > 90 bpm. Does the patient have a suspected source of infection? No. Patient's initial sepsis screen is negative. Risk Assessment: Do you want to hurt yourself or someone else? Patient reports no desire to harm self or others. Onset of symptoms was October 03, 2024. 10:32 Method Of Arrival: Ambulatory cm10 10:32 Acuity: MADONNA 2 cm10 Triage Assessment: 10:34 General: Appears in no apparent distress. comfortable, Behavior is calm, cooperative. cm10 Neuro: No deficits noted. Level of Consciousness is awake, alert, obeys commands, Oriented to person, place, time, situation, Appropriate for age. Respiratory: No deficits noted. Airway is patent Respiratory effort is even, unlabored, Respiratory pattern is regular, symmetrical. Historical: - Allergies: 10:33 Lantus; cm10 10:33 Tetanus Vaccines and Toxoid; cm10 - PMHx: 10:33 Anxiety; AVM; Depression; Diabetes - IDDM; GERD; Hyperlipidemia; Hypertension; Panic cm10 Attacks; - PSHx: 10:33 Cholecystectomy; right rotator cuff; cm10 - Immunization history:: Adult Immunizations up to date. - Infectious Disease History:: Denies. - Social history:: Smoking status: Patient denies any tobacco usage or history of. - Family history:: not pertinent. Screenin:36 [facility] ED Fall Risk Assessment (Adult) History of falling in the last 3 months, ld1 including since admission No falls in past 3 months (0 pts) Confusion or Disorientation No (0 pts) Intoxicated or Sedated No (0 pts) Impaired Gait No (0 pts) Mobility Assist Device Used No (0 pt) Altered Elimination No (0 pt) Score/Fall Risk Level 0 - 2 = Low Risk Oriented to surroundings, Maintained a safe environment, Educated pt \T\ family on fall prevention, incl call for assistance when getting out of bed, Assessed \T\ reinforced patient's understanding of fall precautions, Provided non-skid footwear, Hourly rounding (assess needs \T\ fall precautionary measures) done, Used ambulatory aids as needed (educated on \T\ assisted with), Used gait belt as appropriate. Abuse screen: Denies threats or abuse. Denies injuries from another. Nutritional screening: No deficits noted. Tuberculosis screening: No symptoms or risk factors identified. Assessment: 13:36 General: Appears in no apparent distress. comfortable, Behavior is calm, cooperative, ld1 appropriate for age. Pain: Denies pain. Neuro: Level of Consciousness is awake, alert, obeys commands, Oriented to person, place, time, situation. Cardiovascular: Capillary refill < 3 seconds Patient's skin is warm and dry. Respiratory: Airway is patent Respiratory effort is even, unlabored. GI: Abdomen is flat, non-distended. : No signs and/or symptoms were reported regarding the genitourinary system. EENT: No signs and/or symptoms were reported regarding the EENT system. Derm: No signs and/or symptoms reported regarding the dermatologic system. Musculoskeletal: No signs and/or symptoms reported regarding the musculoskeletal system. Vital Signs: 10:32 BP 154 / 73; Pulse 93; Resp 15; Temp 98.4(O); Pulse Ox 96% on R/A; Weight 97.98 kg; cm10 Height 5 ft. 0 in. ; Pain 9/10; 13:36 BP 119 / 61; Pulse 84; Resp 18; Pulse Ox 100% on R/A; ld1 10:32 Body Mass Index 42.18 (97.98 kg, 152.4 cm) cm10 10:32 Pain Scale: Adult cm10 ED Course: 10:17 Patient arrived in ED. ra3 10:20 Amado Alvarez MD is Attending Physician. rt 10:33 Triage completed. cm10 10:34 Arm band placed on right wrist. Patient placed in waiting room. cm10 10:50 Initial lab(s) drawn, by me, sent to lab. EKG done, by ED staff, reviewed by Amado Alvarez MD. Inserted saline lock: 20 gauge in left antecubital area, using aseptic technique. Blood collected. Flushed with 10 mL NS. 10:50 Basic Metabolic Panel Sent. bc6 10:50 CBC with Diff Sent. bc6 10:50 LFT's Sent. bc6 10:50 Troponin HS Sent. bc6 11:48 Head Brain Wo Cont In Process Unspecified. EDMS 11:50 Angio Aorta For Dissection In Process Unspecified. EDMS 12:07 Justina Lopez, RN is Primary Nurse. ld1 13:36 Patient has correct armband on for positive identification. Placed in gown. Bed in low ld1 position. Call light in reach. Side rails up X2. chinese medicine practitioner on. Pulse ox on. NIBP on. Door closed. Noise minimized. Warm blanket given. 13:36 No provider procedures requiring assistance completed. ld1 13:39 IV discontinued, intact, bleeding controlled, No redness/swelling at site. ld1 Administered Medications: 11:40 Drug: Ondansetron IVP 4 mg IVP once; over 2 minutes Route: IVP; Site: left antecubital; hb 13:36 Follow up: Response: No adverse reaction ld1 13:36 Not Given (Patient Refused): morphineor iv 4 mg IVP once over 4 mins ld1 13:36 Not Given (Patient Refused): ondansetron 4 mg IVP once; over 2 minutes ld1 Medication: 13:36 VIS not applicable for this client. ld1 Outcome: 13:29 Discharge ordered by MD. rt 13:39 Discharged to home ambulatory, ld1 13:39 Condition: stable 13:39 Discharge instructions given to patient, Instructed on discharge instructions, follow up and referral plans. Demonstrated understanding of instructions, follow-up care, 13:39 Patient left the ED. ld1 Signatures: Dispatcher [employer] EDMS Diana Francis RN RN Justina Lopez, RN RN ld1 Amado Alvarez MD MD rt Daxa Adams Clarissa RN RN cm10 Vera Turcios ra3 Corrections: (The following items were deleted from the chart) 10:35 10:32 Chief complaint: Patient states: Blurred vision onset 3 days ago. Pt also reports cm10 pain to her head and also reports elevated blood pressure. Chief complaint: Patient states: Blurred vision onset 3 days ago. Pt also reports pain to her head and also reports elevated blood pressure. cm10 10:35 10:32 Acuity: MADONNA 3 cm10 cm10
--- NOTE | 2024-10-06 13:30 | EDPHYS ---
Physician Documentation [facility] Name: Stephanie Noel Age: 59 yrs Sex: Female : 1965 Arrival Date: 10/06/2024 Time: 10:15 Bed 11 Private MD: ED Physician Amado Alvarez HPI: 10/06 14:54 This 59 yrs old Black Female presents to ER via Ambulatory with complaints of Blurred rt Vision, High Blood Pressure. 14:54 Patient presents to the ED with report of blurred vision for the past 3 days as well as rt a headache starting yesterday. The patient reports having a back pain as well as a chest tightness yesterday. States that the chest tightness has resolved, no chest pain currently. Denies other acute complaints at this time, symptoms are moderate in severity, no other aggravating or alleviating factors.. Historical: - Allergies: 10:33 Lantus; cm10 10:33 Tetanus Vaccines and Toxoid; cm10 - PMHx: 10:33 Anxiety; AVM; Depression; Diabetes - IDDM; GERD; Hyperlipidemia; Hypertension; Panic cm10 Attacks; - PSHx: 10:33 Cholecystectomy; right rotator cuff; cm10 - Immunization history:: Adult Immunizations up to date. - Infectious Disease History:: Denies. - Social history:: Smoking status: Patient denies any tobacco usage or history of. - Family history:: not pertinent. ROS: 14:54 Constitutional: Negative for fever, chills, and weight loss, Respiratory: Negative for rt shortness of breath, cough, wheezing, and pleuritic chest pain, Abdomen/GI: Negative for abdominal pain, nausea, vomiting, diarrhea, and constipation, MS/Extremity: Negative for injury and deformity, Skin: Negative for injury, rash, and discoloration, 14:54 Eyes: Positive for blurry vision, Negative for pain, 14:54 Back: Positive for pain at rest, Negative for injury or acute deformity, 14:54 Neuro: Positive for headache, Negative for loss of consciousness, Exam: 14:54 Constitutional: This is a well developed, well nourished patient who is awake, alert, rt and in no acute distress. Head/Face: Normocephalic, atraumatic. Chest/axilla: Normal chest wall appearance and motion. Nontender with no deformity. No lesions are appreciated. Cardiovascular: Regular rate and rhythm with a normal S1 and S2. No gallops, murmurs, or rubs. Normal PMI, no JVD. No pulse deficits. Respiratory: Lungs have equal breath sounds bilaterally, clear to auscultation and percussion. No rales, rhonchi or wheezes noted. No increased work of breathing, no retractions or nasal flaring. Abdomen/GI: Soft, non-tender, with normal bowel sounds. No distension or tympany. No guarding or rebound. No evidence of tenderness throughout. Skin: Warm, dry with normal turgor. Normal color with no rashes, no lesions, and no evidence of cellulitis. MS/ Extremity: Pulses equal, no cyanosis. Neurovascular intact. Full, normal range of motion. Neuro: Awake and alert, GCS 15, oriented to person, place, time, and situation. Cranial nerves II-XII grossly intact. Motor strength 5/5 in all extremities. Sensory grossly intact. Cerebellar exam normal. Normal gait. 14:54 ECG was reviewed by the Attending Physician. Vital Signs: 10:32 BP 154 / 73; Pulse 93; Resp 15; Temp 98.4(O); Pulse Ox 96% on R/A; Weight 97.98 kg; cm10 Height 5 ft. 0 in. ; Pain 9/10; 13:36 BP 119 / 61; Pulse 84; Resp 18; Pulse Ox 100% on R/A; ld1 10:32 Body Mass Index 42.18 (97.98 kg, 152.4 cm) cm10 10:32 Pain Scale: Adult cm10 MDM: 10:38 Medical Screening Exam initiated rt 14:57 Differential diagnosis: Hypertension, near syncope, dysrhythmia, headache. Data rt reviewed: vital signs, nurses notes, lab test result(s), EKG, radiologic studies. Consideration of Admission/Observation Escalation of care including admission/observation considered. Patient is 24-hour chest pain free with negative troponin, this is sufficient to rule out acute coronary syndrome. EKG is unremarkable. Symptoms are resolving with treatment in the ED, no signs of aortic dissection, adrenal hemorrhage. Stable for outpatient care, return precautions discussed.. Independent interpretation of the following test(s) in the Emergency Department CT Scan: My interpretation is No intracranial hemorrhage syndrome interpretation of CT scan images. Care significantly affected by the following chronic conditions: Diabetes, Hypertension. Counseling: I had a detailed discussion with the patient and/or guardian regarding the historical points, exam findings, and any diagnostic results supporting the discharge/admit diagnosis, lab results, radiology results, the need for outpatient follow up, to return to the emergency department if symptoms worsen or persist or if there are any questions or concerns that arise at home. Response to treatment: the patient's symptoms have markedly improved after treatment. 10/06 10:59 Order name: Basic Metabolic Panel EDMS 10/06 10:59 Order name: Liver (Hepatic) Function EDMS 10/06 10:59 Order name: Troponin High Sensitivity EDMS 10/06 10:59 Order name: CBC with Automated Diff EDMS 10/06 11:14 Order name: CBC with Automated Diff; Complete Time: 11:34 EDMS 10/06 11:29 Order name: Basic Metabolic Panel; Complete Time: 11:34 EDMS 10/06 11:29 Order name: Liver (Hepatic) Function; Complete Time: 11:34 EDMS 10/06 11:29 Order name: Troponin High Sensitivity; Complete Time: 11:34 EDMS 10/06 11:05 Order name: Head Brain Wo Cont EDMS 10/06 11:06 Order name: Angio Aorta For Dissection EDMS 10/06 12:22 Order name: CT; Complete Time: 13:24 EDMS 10/06 12:34 Order name: CT; Complete Time: 13:24 EDMS 10/06 10:39 Order name: EKG; Complete Time: 10:40 rt 10/06 10:39 Order name: Cardiac monitoring; Complete Time: 12:07 rt 10/06 10:39 Order name: EKG - Nurse/Tech; Complete Time: 10:50 rt 10/06 10:39 Order name: IV Saline Lock; Complete Time: 10:50 rt 10/06 10:39 Order name: Labs collected and sent; Complete Time: 10:50 rt 10/06 10:39 Order name: O2 Per Protocol; Complete Time: 12:07 rt 10/06 10:39 Order name: O2 Sat Monitoring; Complete Time: 12:07 rt EC:54 Rate is 91 beats/min. Rhythm is regular, Normal Sinus Rhythm with No ectopy. QRS Maljamar rt is Normal. [place] interval is normal. QRS interval is normal. QT interval is normal. No Q waves. T waves are Normal. No ST changes noted. Interpreted by me. Administered Medications: 11:40 Drug: Ondansetron IVP 4 mg IVP once; over 2 minutes Route: IVP; Site: left antecubital; hb 13:36 Follow up: Response: No adverse reaction ld1 13:36 Not Given (Patient Refused): morphineor iv 4 mg IVP once over 4 mins ld1 13:36 Not Given (Patient Refused): ondansetron 4 mg IVP once; over 2 minutes ld1 Disposition Summary: 10/06/24 13:29 Discharge Ordered Notes: Location: Home rt Problem: new rt Symptoms: have improved rt Condition: Stable rt Diagnosis - Headache rt Followup: rt - With: Private Physician - When: 2 - 3 days - Reason: Discharge Instructions: - Discharge Summary Sheet rt - General Headache Without Cause rt Forms: - Medication Reconciliation Form rt - Antibiotic Education rt - Prescription Opioid Use rt - Patient Portal Instructions rt - Leadership Thank You Letter rt Signatures: Dispatcher [employer] EDMS Diana Francis RN RN Amado Alvarez MD MD rt Ruby Kc RN RN cm10 Justina Lopez RN ld1 Corrections: (The following items were deleted from the chart) 10:40 10:40 Head Brain Wo Cont+CT.RAD.BRZ ordered. EDMS EDMS 10:40 10:40 Angio Aorta For Dissection+CT.RAD.BRZ ordered. EDMS EDMS
--- NOTE | 2024-10-08 11:59 | EKG ---
Test Date: 2024-10-06 Test Time: 10:39:50 Sorting Supervisor: BREANNA MEASUREMENT RESULTS: Intervals: Rate: 91 PA: 202 QRSD: 86 QT: 360 QTc: 442 [place]: P: 74 PA: 202 QRS: -3 T: 60 INTERPRETIVE STATEMENTS: Normal sinus rhythm Normal ECG Compared to ECG 03/16/2024 19:21:25 Left ventricular hypertrophy no longer present Electronically Signed On 10-08-24 11:56:18 CAN LINE EXAMINER by Luis Bryant
[2024-10-09 01:22] VITALS: BP 119/61; TEMP 98.4; O2SAT 100
== END 2024-10-06 13:39 | disposition home or self-care (01) ==
LOC: ER 10:15
DX: R51.9 Headache, unspecified (principal); H53.8 Other visual disturbances; I10 Essential (primary) hypertension
CPT/HCPCS: 93005; 85025; 80048; 36415; 80076; 84484; 70450; 71275; 74175; 96374; 99285; Q9967; J2405